=== PATIENT | male | born 1945 | race Caucasian/White ===

== ENCOUNTER 2020-05-24 10:06 | Outpatient (REF) | payer MEDICARE, SELFPAY ==
--- NOTE | 2020-05-24 | US_ITS ---
EXAMINATION: US EXTRACRANIAL CAROTID DUPLEX, BILATERAL CLINICAL INFORMATION: Bilateral asymptomatic carotid stenosis. COMPARISON: 05/14/2019 carotid ultrasound. TECHNIQUE: Real-time ultrasound and Doppler techniques (integrating B-mode 2-D vascular images, Doppler spectral analysis and color-flow Doppler imaging) were utilized to interrogate the extracranial carotid arteries, the vertebral arteries and proximal subclavian arteries bilaterally. The degree of stenosis is determined by criteria similar to NASCET. FINDINGS: Mild echogenic atherosclerotic plaque was seen in the right carotid bulb. No significant atherosclerotic plaque was seen in the left carotid bulb. Color Doppler interrogation demonstrated normal arterial waveforms with brisk systolic upstrokes. No tardus parvus waveform was identified. Arterial velocities were as follows in cm/s: RIGHT: Proximal CCA: 107 Distal CCA: 99 Proximal ICA: 56 Mid ICA: 73 Distal ICA: 77 ECA: 105 LEFT: Proximal CCA: 117 Distal CCA: 111 Proximal ICA: 87 Mid ICA: 100 Distal ICA: 87 ECA: 111 The vertebral arteries demonstrated normal arterial waveforms and direction of flow. IMPRESSION: No hemodynamically significant arterial stenosis bilaterally.
== END 2020-05-24 10:07 | disposition home or self-care (01) ==
LOC: HO.US 10:06
PROVIDERS: PCP Family Medicine; Visit Provider Surgery Vascular Surgery
DX: I65.23 Occlusion and stenosis of bilateral carotid arteries (principal)
CPT/HCPCS: 93880

== ENCOUNTER → 2020-07-01 09:20 | Outpatient (BNVA) | payer MEDICARE, SELFPAY | PROVIDERS: PCP Family Medicine; Visit Provider Surgery Vascular Surgery | DX: I65.23 Occlusion and stenosis of bilateral carotid arteries (principal) | CPT/HCPCS: 99212 ==

== ENCOUNTER → 2020-08-03 08:58 | Outpatient (BNVA) | payer MEDICARE, SELFPAY | PROVIDERS: PCP Family Medicine; Visit Provider Internal Medicine | DX: I25.10 Atherosclerotic heart disease of native coronary artery without angina pectoris (principal); E11.9 Type 2 diabetes mellitus without complications; J44.9 Chronic obstructive pulmonary disease, unspecified; I65.23 Occlusion and stenosis of bilateral carotid arteries; I45.2 Bifascicular block; I10 Essential (primary) hypertension; E78.5 Hyperlipidemia, unspecified; G47.33 Obstructive sleep apnea (adult) (pediatric); I73.9 Peripheral vascular disease, unspecified; Z87.891 Personal history of nicotine dependence; Z99.89 Dependence on other enabling machines and devices; Z79.84 Long term (current) use of oral hypoglycemic drugs; Z79.899 Other long term (current) drug therapy | CPT/HCPCS: 93005; 99212 ==

== ENCOUNTER 2020-10-22 09:08 | Emergency (ER) | payer MEDICARE, SELFPAY ==
--- NOTE | ~2020-10-22 | XR_ITS ---
EXAMINATION: XR RIBS, LEFT CLINICAL INFORMATION: Left rib pain COMPARISON: Previous chest x-ray October 2018 TECHNIQUE: 3 views of the left ribs and one view of the chest were obtained. FINDINGS: The cardiac and mediastinal contours are stable. There is scarring or chronic subsegmental atelectasis at the lung bases, left greater than right. The lungs are otherwise clear. There is no pleural effusion or pneumothorax. There are degenerative changes of the thoracic spine. No rib fracture is seen. There are degenerative changes of the left shoulder joint. XR/XR ribs LT min 3V w CXR1V IMPRESSION: Bibasilar scarring or chronic subsegmental atelectasis. No evidence for acute disease in the chest or rib fracture seen.
[2020-10-22 09:14] VITALS: BP 158/60; PULSE 96; RESP 20; TEMP 36.4; O2SAT 96; BMI 34.9
--- NOTE | 2020-10-22 09:30 | ECG_ITS ---
Test Reason : CHEST PAIN Blood Pressure : / mmHG Vent. Rate : 090 BPM Atrial Rate : 090 BPM P-R Int : 152 ms QRS Dur : 146 ms QT Int : 404 ms P-R-T Axes : 034 -67 045 degrees QTc Int : 494 ms Normal sinus rhythm Right bundle branch block Left anterior fascicular block Bifascicular block Abnormal ECG When compared with ECG of 31-OCT-2018 06:19, (RBBB and left anterior fascicular block) is now Present Referred By: Jeannette Stearns Electronically Signed By:DARÍO HANSEN
[2020-10-22 10:02] LABS: MANUAL DIFF FLAG NO
[2020-10-22 10:05] LABS: Basophils Percent Auto 0.3 % (0-2); Eosinophils Absolute Auto 0.1 X10*3/uL (0.0-0.4); Eosinophils Percent Auto 1.2 % (0-4); Hematocrit 44.3 % (42-52); Hemoglobin 14.9 g/dl (14.0-18.0); Imm Gran Abs Auto 0.06 X10*3/uL (0.00-0.03); Imm Gran Pct Auto 0.6 % (0.0-0.4); Lymphocytes Absolute Auto 1.9 X10*3/uL (1.2-4.9); Lymphocytes Percent Auto 20.7 % (20-40); Mean Corpuscular HGB Conc 33.6 g/dl (31.0-36.0); Mean Corpuscular Hemoglobin 29.5 pg (27.0-33.0); Mean Corpuscular Volume 87.7 fL (80-98); Mean Platelet Volume 8.9 fL (9.4-12.4); Monocytes Absolute Auto 0.7 X10*3/uL (0.1-1.2); Neutrophils Absolute Auto 6.6 X10*3/uL (2.0-8.3); Neutrophils Percent Auto 70.2 % (45-73); Platelet Count 274 X10*3/uL (160-400); Red Blood Count 5.05 X10*6/uL (4.60-5.80); Red Cell Distribution Width 14.3 % (11.0-16.0); White Blood Count 9.4 X10*3/uL (4.8-10.8)
[2020-10-22 10:16] LABS: Prothrombin Time 11.4 SEC (10.8-13.0)
[2020-10-22 10:19] LABS: Partial Thromboplastin Time 32.6 SEC (24.1-38.0)
[2020-10-22 10:20] LABS: D Dimer < 200 NG/ML
[2020-10-22 10:30] LABS: Alanine Aminotransferase 22 U/L (0-40); Albumin Level 4.3 g/dL (3.5-5.0); Alkaline Phosphatase 48 U/L (39-117); Anion Gap 15 (12-20); Aspartate Amino Transferase 22 U/L (5-37); Bilirubin Direct 0.2 mg/dL (0.0-0.5); Bilirubin Total 0.5 mg/dL (0.0-1.0); Blood Urea Nitrogen 23 mg/dL (9-16); Calcium 9.5 mg/dL (8.4-10.2); Carbon Dioxide 30 mmol/L (22-29); Chloride 96 mmol/L (96-108); Estimated Glomerular Filt Rate > 60; Glucose Random 204 mg/dL (60-115); Magnesium 2.1 mg/dL (1.6-2.6); Potassium 3.6 mmol/L (3.3-5.1); Sodium 137 mmol/L (135-145)
--- NOTE | 2020-10-22 10:35 | ED.CHESTPAIN ---
HPI - Chest Pain General Chief Complaint: Chest Pain Stated Complaint: CHEST PAIN Time Seen by Provider: 10/22/20 09:19 Source: patient Mode of arrival: ambulatory History of Present Illness HPI narrative: 75-year-old male with a past medical history of CAD, carotid stenosis, COPD, diabetes, hyperlipidemia, hypertension, MISTY on CPAP, presenting to the ED complaining of left-sided chest pain radiating to back x1 week. Admits symptoms started after sneezing episode, symptoms worse with movement, and deep breathing. States feels like a pulled muscle. Denies fever, cough, shortness of breath, nausea/vomiting, abdominal pain, LE edema, recent travel, smoking. Denies trauma falls or injury MD complaint: chest discomfort Related Data Home Medications Medication Instructions Recorded Confirmed flu vacc 2020-21(65yr ml IM 07/01/20 08/03/20 up)-MF59C(PF) 60 mcg(15 mcgx4)/0.5 mL IM syringe metformin 500 mg tablet,extended 500 mg PO BID 07/01/20 08/03/20 release 24 hr tamsulosin 0.4 mg capsule 0.4 mg PO BID 07/01/20 08/03/20 umeclidinium 62.5 mcg/actuation 1 inh PO DAILY 07/01/20 08/03/20 blister powder for inhalation aspirin 81 mg tablet,delayed 81 mg PO DAILY 08/03/20 08/03/20 release chlorthalidone 25 mg tablet 25 mg PO DAILY 08/03/20 08/03/20 Previous Rx's Medication Instructions Recorded amlodipine 10 mg tablet 10 mg PO DAILY #30 tab 06/10/20 epinephrine 0.3 mg/0.3 mL 0.3 mg IM Q20M PRN #2 ea 07/06/20 injection, auto-injector blood sugar diagnostic #50 ea 07/26/20 hydralazine 25 mg tablet 25 mg PO TID #90 tab 08/03/20 desoximetasone 0.25 % topical cream 1 appl TOPICAL BID PRN 30 Days 09/02/20 #100 g fluticasone 500 mcg-salmeterol 50 1 ea PO BID 30 Days #60 ea 09/04/20 mcg/dose blistr powdr for inhalation rosuvastatin 10 mg tablet 10 mg PO BEDTIME 30 Days #30 tab 10/05/20 acetaminophen [Tylenol Extra 500 mg PO Q6H PRN #20 tab 10/22/20 Strength] cyclobenzaprine 5 mg PO Q8H PRN 5 Days #14 tab 10/22/20 lidocaine [Lidoderm] 1 patch TOPICAL DAILY PRN #30 ea 10/22/20 MDD remove after 12 hours Allergies Allergy/AdvReac Type Severity Reaction Status Date / Time SADI Inhibitors Allergy Unknown FACIAL Verified 08/03/20 09:11 [SADI INHIBITORS] SWELLING lisinopril [LISINOPRIL] Allergy Unknown FACIAL Verified 08/03/20 09:11 SWELLING, hives, lip edema oxycodone [From PERCOCET] Allergy Unknown JOINT Verified 08/03/20 09:11 STIFFNESS peanut [PEANUTS] Allergy Unknown SWELLING,TH Verified 08/03/20 09:11 ROAT,HIVES Review of Systems Review of Systems: Constitutional: No Fever, No Chills Cardiovascular: + Chest Pain, No SOB, No Dyspnea on Exertion, No Orthopnea, No Edema, No Palpitations Respiratory: No Cough, No Sputum, No Wheezing Gastrointestinal: No Nausea, No Vomiting, No Diarrhea, No Abdominal pain Genitourinary: No Dysuria, No Urinary Frequency, No Hematuria, No Flank Pain Musculoskeletal: No joint pain, No Myalgias, No Joint Swelling Skin: No Skin Lesions, No rash Yes all other systems are reviewed and are negative [facility] Past Medical History Attestation statement: The following information was validated with the patient. Medical History (Updated 10/22/20 @ 13:58 by MARKELL Head) Atherosclerotic cardiovascular disease Bifascicular block Carotid stenosis COPD (chronic obstructive pulmonary disease) Diabetes Hypercholesteremia Hypertension MISTY on CPAP Surgical History Hx of cataract S/P TURP (status post transurethral resection of prostate) (~2019) Status post carotid surgery Family History Family History Father CVD (cardiovascular disease) Mother No problems noted. Sister Cancer Sister Cancer Social History Social History (Updated 08/03/20 @ 09:12 by FRANCHESCA Hidalgo) Smoking Status: Former smoker Use of substances other than those prescribed or required for medical reasons: No Advance Directives: Yes Advance Directives Information Provided: No Advance Directives on File: No Physical Exam Vital Signs: Vital Signs: Last Vital Signs Temp 97.7 F 10/22/20 13:20 Pulse 98 10/22/20 13:20 Resp 17 10/22/20 13:20 BP 156/76 H 10/22/20 13:20 Pulse Ox 96 10/22/20 13:20 Body Mass Index 34.9 Const: General: cooperative, healthy appearing, comfortable, no acute distress and well developed Orientation/consciousness: patient oriented x3 Limitations: no limitations HENMT: Head: Yes normal to inspection Ears: hearing grossly normal bilaterally General nose exam: Normal external nose present Face and sinus: Yes normal facial exam Eyes: General: appearance normal, both eyes and all related structures EOM: EOMs intact bilaterally Neck: Neck: Yes normal visual inspection Chest: Other: Left anterior lateral upper chest wall/ribs. No vertebral deformity/erythema or crepitus Chest palpation & inspection: normal inspection of the chest, no crepitus and tenderness Resp: Effort & Inspection: normal respiratory effort Auscultation: clear to auscultation bilaterally, no rhonchi and no wheezes Cardio: Rate: regular rate Heart sounds: S1 normal heart sound present and S2 normal heart sound present GI: Inspection: Yes normal to inspection Palpation (GI): Soft to palpation, nontender, no guarding and not rigid : General: Yes no CVA tenderness Back/Spine/Pelvis: Back: no CVA tenderness Skin: Rashes: no rashes Wounds: no wounds Neuro: General: patient oriented x3 Gait exam (Neuro): Normal gait present Extrem: General: Yes normal to inspection, Yes no pedal edema and Yes no calf tenderness Course Course Course Narrative: -D-dimer negative, troponin 6.8 >> will obtain 3 hour repeat. Labs otherwise unremarkable XR ribs LT min 3V w CXR1V IMPRESSION: Bibasilar scarring or chronic subsegmental atelectasis. No evidence for acute disease in the chest or rib fracture seen. -1357--repeat troponin without 50% rise. PR unlikely. Mild symptomatic improvement with Lidoderm patch. Results discussed including worrisome signs and symptoms and strict return precautions. Patient is to follow-up with his PCP and Cardiology MDM - Chest Pain MDM Narrative Medical decision making narrative: 75-year-old male with a past medical history of CAD, carotid stenosis, COPD, diabetes, hyperlipidemia, hypertension, MISTY on CPAP, presenting to the ED complaining of left-sided chest pain radiating to back x1 week. On exam VSS, NAD/well-appearing, nontoxic. Pain reproducible. Concern for MSK pain/ fracture vs PE or pneumonia. Symptoms atypical for ACS Plan: EKG, labs, CXR, re-evaluate Differential Diagnosis Differential diagnosis: Likely fracture of rib, pneumothorax, atypical chest pain, costochondritis and chest pain Medical Records Data Attestation: I reviewed the patient's medical records. Lab Data Attestation: I reviewed the patient's lab results. Result diagrams: 10/22/20 09:44 10/22/20 09:44 Labs: Lab Results 10/22/20 10/22/20 10/22/20 Range/Units 09:44 09:44 09:44 WBC 9.4 (4.8-10.8) X10*3/uL RBC 5.05 (4.60-5.80) X10*6/uL Hgb 14.9 (14.0-18.0) g/dl Hct 44.3 (42-52) % MCV 87.7 (80-98) fL MCH 29.5 (27.0-33.0) pg MCHC 33.6 (31.0-36.0) g/dl RDW 14.3 (11.0-16.0) % Plt Count 274 (160-400) X10*3/uL MPV 8.9 L (9.4-12.4) fL Immature Gran % (Auto) 0.6 H (0.0-0.4) % Neut % (Auto) 70.2 (45-73) % Lymph % (Auto) 20.7 (20-40) % Pacific % (Auto) 7.0 (2-11) % Eos % (Auto) 1.2 (0-4) % Baso % (Auto) 0.3 (0-2) % Lymph # (Auto) 1.9 (1.2-4.9) X10*3/uL Pacific # (Auto) 0.7 (0.1-1.2) X10*3/uL Eos # (Auto) 0.1 (0.0-0.4) X10*3/uL Baso # (Auto) 0.0 (0.0-0.2) X10*3/uL Abs Immat Gran (auto) 0.06 H (0.00-0.03) X10*3/uL Absolute Neuts (auto) 6.6 (2.0-8.3) X10*3/uL Absolute Nucleated RBC 0.000 (0.0-0.012) X10*3/uL Nucleated RBC % (auto) 0.0 (0.0-0.2) /100WBC PT 11.4 (10.8-13.0) SEC INR 1.0 (0.9-1.1) APTT 32.6 (24.1-38.0) SEC D-Dimer < 200 NG/ML Sodium 137 (135-145) mmol/L Potassium 3.6 (3.3-5.1) mmol/L Chloride 96 (96-108) mmol/L Carbon Dioxide 30 H (22-29) mmol/L Anion Gap 15 (12-20) BUN 23 H (9-16) mg/dL Creatinine 0.96 (0.5-1.4) mg/dL Estim Creat Clear Calc 79.0 Estimated GFR > 60 Random Glucose 204 H (60-115) mg/dL Calcium 9.5 (8.4-10.2) mg/dL Magnesium 2.1 (1.6-2.6) mg/dL Total Bilirubin 0.5 (0.0-1.0) mg/dL Direct Bilirubin 0.2 (0.0-0.5) mg/dL AST 22 (5-37) U/L ALT 22 (0-40) U/L Alkaline Phosphatase 48 (39-117) U/L Troponin I High Sens (<3.5-35.0) ng/L B-Natriuretic Peptide (<100) pg/mL Total Protein 7.0 (6.5-8.0) g/dL Albumin 4.3 (3.5-5.0) g/dL Lipase 33 (8-78) U/L 10/22/20 10/22/20 10/22/20 Range/Units 09:44 09:44 12:37 WBC (4.8-10.8) X10*3/uL RBC (4.60-5.80) X10*6/uL Hgb (14.0-18.0) g/dl Hct (42-52) % MCV (80-98) fL MCH (27.0-33.0) pg MCHC (31.0-36.0) g/dl RDW (11.0-16.0) % Plt Count (160-400) X10*3/uL MPV (9.4-12.4) fL Immature Gran % (Auto) (0.0-0.4) % Neut % (Auto) (45-73) % Lymph % (Auto) (20-40) % Pacific % (Auto) (2-11) % Eos % (Auto) (0-4) % Baso % (Auto) (0-2) % Lymph # (Auto) (1.2-4.9) X10*3/uL Pacific # (Auto) (0.1-1.2) X10*3/uL Eos # (Auto) (0.0-0.4) X10*3/uL Baso # (Auto) (0.0-0.2) X10*3/uL Abs Immat Gran (auto) (0.00-0.03) X10*3/uL Absolute Neuts (auto) (2.0-8.3) X10*3/uL Absolute Nucleated RBC (0.0-0.012) X10*3/uL Nucleated RBC % (auto) (0.0-0.2) /100WBC PT (10.8-13.0) SEC INR (0.9-1.1) APTT (24.1-38.0) SEC D-Dimer NG/ML Sodium (135-145) mmol/L Potassium (3.3-5.1) mmol/L Chloride (96-108) mmol/L Carbon Dioxide (22-29) mmol/L Anion Gap (12-20) BUN (9-16) mg/dL Creatinine (0.5-1.4) mg/dL Estim Creat Clear Calc Estimated GFR Random Glucose (60-115) mg/dL Calcium (8.4-10.2) mg/dL Magnesium (1.6-2.6) mg/dL Total Bilirubin (0.0-1.0) mg/dL Direct Bilirubin (0.0-0.5) mg/dL AST (5-37) U/L ALT (0-40) U/L Alkaline Phosphatase (39-117) U/L Troponin I High Sens 6.8 5.8 (<3.5-35.0) ng/L B-Natriuretic Peptide 14 (<100) pg/mL Total Protein (6.5-8.0) g/dL Albumin (3.5-5.0) g/dL Lipase (8-78) U/L ECG Data ECG #1: Attestation: I personally reviewed and interpreted this ECG as follows: ECG interpretation date: 10/22/20 ECG interpretation time: 09:12 Prior ECG tracings: available for review Interpretation: EKG normal sinus rhythm with a rate of 90. QTC 494. Right bundle georges block. Changes from prior Discharge Plan Discharge Clinical Impression: Atypical chest pain Patient Disposition: Home, Self-Care Instructions: Chest Pain (ED), Costochondritis (ED) Additional Instructions: Your blood work and chest x-ray were reassuring today in the ED. your pain is likely musculoskeletal/costochondritis Lidoderm patches or numbing patches, apply to painful area. Flexeril as a muscle relaxer, take at night as it makes you drowsy, do not drive, drink alcohol, or operate machinery while taking it You may ice painful area or apply heat packs Follow-up with her primary care doctor as well as Cardiology. If pain persists or worsens, becomes more constant, have shortness of breath, or fever return to the ED Prescriptions: New acetaminophen [Tylenol Extra Strength] 500 mg tablet 500 mg PO Q6H PRN (Reason: pain or fever) Qty: 20 RF: 0 lidocaine [Lidoderm] 5 % adhesive patch,medicated 1 patch topical DAILY MDD remove after 12 hours PRN (Reason: pain) Qty: 30 RF: 0 cyclobenzaprine 5 mg tablet 5 mg PO Q8H PRN (Reason: pain (scale score 7-10)) 5 Days Qty: 14 RF: 0 No Action amlodipine 10 mg tablet 10 mg PO DAILY Qty: 30 RF: 6 epinephrine 0.3 mg/0.3 mL auto-injector 0.3 mg IM Q20M PRN (Reason: anaphylaxis) Qty: 2 RF: 0 (DME) blood sugar diagnostic Strip See Rx Instructions .ROUTE .MEDSUPPLY Qty: 50 RF: 2 desoximetasone 0.25 % cream 1 appl topical BID PRN (Reason: skin irritation) 30 Days Qty: 100 RF: 3 fluticasone propion-salmeterol 500-50 mcg/dose blister with device 1 ea PO BID 30 Days Qty: 60 RF: 6 rosuvastatin 10 mg tablet 10 mg PO BEDTIME 30 Days Qty: 30 RF: 3 Incruse Ellipta 62.5 mcg/actuation blister with device 1 inh PO DAILY RF: 0 tamsulosin 0.4 mg capsule 0.4 mg PO BID RF: 0 Fluad Quad 2019-(65y up)(PF) 60 mcg (15 mcg x 4)/0.5 mL syringe IM RF: 0 metformin 500 mg tablet extended release 24 hr 500 mg PO BID RF: 0 aspirin 81 mg tablet,delayed release (DR/EC) 81 mg PO DAILY RF: 0 chlorthalidone 25 mg tablet 25 mg PO DAILY RF: 0 hydralazine 25 mg tablet 25 mg PO TID Qty: 90 RF: 5 Referrals: Denis Diehl MD [Primary Care Provider] - 2 days Hernandez Jennings MD [Physician] - 5 days
[2020-10-22 10:36] LABS: B Type Natriuretic Peptide 14 pg/mL (<100); Troponin-I High Sensitivity 6.8 ng/L (<3.5-35.0)
[2020-10-22 11:19] LABS: Lipase 33 U/L (8-78)
[2020-10-22] MEDS: Lidocaine 4 % Patch ADH..PATCH 1 PATCH TRANSDERMA (11:26)
[2020-10-22 11:42] VITALS: BP 150/71; PULSE 82; RESP 18; TEMP 36.6; O2SAT 94
--- NOTE | 2020-10-22 11:43 | PC.NURSE ---
patient a&ox3, c/o left chest/rib pain- lido patch applied per order, pt states pain is only with movement and when he coughs, pt awaiting repeat lab draw, will continue to monitor.
--- NOTE | 2020-10-22 11:45 | PC.NURSE ---
hall monitor nsr 80s
[2020-10-22 13:20] VITALS: BP 156/76; PULSE 98; RESP 17; TEMP 36.5; O2SAT 96
[2020-10-22 13:39] LABS: Troponin-I High Sensitivity 5.8 ng/L (<3.5-35.0)
== END 2020-10-22 14:27 | disposition home or self-care (01) ==
PROVIDERS: Physician Assistant; Emergency Provider Emergency Medicine; PCP Family Medicine
DX: R07.89 Other chest pain (principal); E11.9 Type 2 diabetes mellitus without complications; I10 Essential (primary) hypertension; E78.5 Hyperlipidemia, unspecified; Z79.4 Long term (current) use of insulin; Z79.82 Long term (current) use of aspirin
CPT/HCPCS: 36415; 71101; 80048; 80076; 83690; 83735; 83880; 84484; 85025; 85379; 85610; 85730; 93005; 99283; 99285

== ENCOUNTER → 2021-02-07 08:58 | Outpatient (BNVA) | payer MEDICARE, SELFPAY | PROVIDERS: PCP Family Medicine; Referring Provider Family Medicine; Visit Provider Internal Medicine | DX: I25.10 Atherosclerotic heart disease of native coronary artery without angina pectoris (principal); I45.2 Bifascicular block; I10 Essential (primary) hypertension; I65.23 Occlusion and stenosis of bilateral carotid arteries; H44.9 Unspecified disorder of globe; G47.33 Obstructive sleep apnea (adult) (pediatric); E11.8 Type 2 diabetes mellitus with unspecified complications; Z99.89 Dependence on other enabling machines and devices; Z79.899 Other long term (current) drug therapy | CPT/HCPCS: 93005; 99212 ==

== ENCOUNTER 2021-02-08 06:13 | Outpatient (REF) | payer MEDICARE, SELFPAY ==
--- NOTE | ~2021-02-08 | XR_ITS ---
EXAMINATION: XR CHEST CLINICAL INFORMATION: COPD COMPARISON: Previous chest x-rays most recent October 2020 TECHNIQUE: 2 views of the chest were obtained. FINDINGS: The cardiac and mediastinal contours are stable. The thoracic aorta is tortuous and calcified but appears unchanged. The lungs are clear. There is no pleural effusion or pneumothorax. There are degenerative changes of the spine. XR/XR chest 2V IMPRESSION: No evidence for acute disease in the chest.
== END 2021-02-08 06:14 | disposition home or self-care (01) ==
LOC: HO.XRAY 06:13
PROVIDERS: PCP Family Medicine; Visit Provider Internal Medicine
DX: J44.9 Chronic obstructive pulmonary disease, unspecified (principal); R06.02 Shortness of breath
CPT/HCPCS: 71046

== ENCOUNTER → 2021-02-10 10:42 | Outpatient (REF) | payer MEDICARE, SELFPAY ==
--- NOTE | 2021-02-10 10:46 | CA_ITS ---
Transthoracic Echocardiogram Patient (Last, First, Middle): Taqueria Adkins, Gender: Male Date of : 1945 Age: 75 Procedure Date: 02/10/2021 Procedure Type: Transthoracic Echocardiogram Location: OP Height: 172.72 cm Weight: 104.33 kg BSA: 2.17 m2 Heart Rate: bpm BP: 120 / 74 mmHg Director Security Management: HAM Whitney MD: Hernandez Jennings MD Instructor Flying: Lukas Nicholson MD Symptoms: I25.10 - Atherosclerotic heart disease of jena coronary... Study Quality: Technically Difficult ECG Rhythm: Tachycardia Conclusions: - 1. Normal LV systolic function with impaired relaxation filling pattern 2. Mild calcification aortic valve and mild mitral and calcification with normal cardiac valvular Doppler 3. Normal RV systolic pressure 4. No pericardial effusion Findings Left Ventricle Normal left ventricular size, thickness, and systolic function. The visually estimated ejection fraction is between 60-65%. Spectral Doppler is indicative of an impaired relaxation filling pattern. E/E prime ratio is between 8 and 15 consistent with indeterminate filling pressures. Right Ventricle Normal right ventricular cavity size and systolic function. Atria The left atrium is likely dilated. Interatrial shunt cannot be excluded. The right atrium is normal in size. Aortic Valve There is mild calcification of the aortic valve. There is no aortic valve stenosis. There is no aortic valve regurgitation. Mitral Valve There is mild anterior and posterior mitral leaflet thickening. There is mild mitral annular calcification. There is trace mitral valve regurgitation. There is no mitral valve stenosis. Pulmonic Valve The pulmonic valve was not well visualized. Tricuspid Valve Likely normal tricuspid valve structure and function. There is mild tricuspid valve regurgitation. The right ventricular systolic pressure is normal. The right ventricular systolic pressure is 21 mmHg. There is no evidence of pulmonary hypertension. Great Vessels The aorta was not well visualized. The pulmonary artery was not well visualized. Venous The inferior vena cava is normal in size and collapses greater than 50% with inspiration. Pericardium/Pleural There is no evidence of pericardial effusion. Prior Study Comparison No significant change compared to prior study dated: 02/11/2020. Measurements M-Mode Liner Measurements Normals - Women/Men AOV Cusps: 1.70 1.5-2.6 cm/m2 2D Linear Measurements IVSd: 1.05 0.6-0.9/0.6-1.0 cm LVIDd: 4.65 3.9-5.3/4.2-5.9 cm LVIDd Index: 2.14 2.4-3.2/2.2-3.1 cm/m2 LVIDs: 2.49 2.0-3.6 cm LVPWd: 1.16 0.7-1.1 cm Ao Root: 3.10 2.1-3.5 cm LA Diam: 3.80 2.7-3.8/3.0-4.0 cm LAIDs Index: 1.75 1.5-2.3 cm/m2 LV Mass: 231.18 67-162/88-224 g LV Mass Index: 106.53 43-95/49-115 g/m2 LVOT Diam: 1.70 3.0+(-)1.3 cm 2D Systolic Function EF 4C: 64.90 >55% EF 2C: 60.90 >55% EF BiP: 63.40 >55% Mitral Valve MV Pk E: 0.74 MV PK A: 1.14 MV Decel Time: 224.00 E/A: 0.60 E'Lateral: 7.40 E'Medial: 7.29 E/E' Med: 10.20 E/E' Lat: 10.00 PHT: 66.00 MVA PHT: 3.33 Decel Coal: 3.31 Aortic Valve AoV Pk [place]: 1.64 AoV Mn [place]: 1.12 AoV VTI: 0.30 AoV Pk Grad: 11.00 Aov Mn Grad: 6.00 JUMANA Cont.VTI: 1.53 LVOT LVOT Pk [place]: 1.00 LVOT Mn [place]: 0.71 LVOT VTI: 0.20 LVOT Pk Grad: 4.00 LVOT Mn Grad: 2.00 LVOT Diam: 1.70 LVOT Area: 2.27 Diastolic Function MV Pk E: 0.74 MV Pk A: 1.14 E/A: 0.60 E'Medial: 7.29 E/E' Med: 10.20 E' Laterial: 7.40 E/E' Lat: 10.00 Tricuspid Valve TR Pk [place]: 2.10 TR Pk Grad: 18.00 RA Press: 3.00 RVSP: 21.00 Great Vessels Aorta Ao Root-2D: 3.10 2.0-3.7 cm Ao Asc: 2.70 2.1-3.4 cm Pulmonary Valve PV Pk [place]: 1.49 Peak PV Grad: 9.00 Updated in Other Vendor System with Status of Final Lukas Nicholson MD electronically signed on 02/10/2021 3:37:15 PM with status of Final
== END ==
LOC: HO.CARD 10:42
PROVIDERS: PCP Family Medicine; Visit Provider Internal Medicine
DX: I25.10 Atherosclerotic heart disease of native coronary artery without angina pectoris (principal); R06.02 Shortness of breath
CPT/HCPCS: 93306

== ENCOUNTER → 2021-07-27 12:51 | Outpatient (BNVA) | payer MEDICARE, SELFPAY | PROVIDERS: PCP Family Medicine; Referring Provider Family Medicine; Visit Provider Internal Medicine | DX: I25.10 Atherosclerotic heart disease of native coronary artery without angina pectoris (principal); I45.2 Bifascicular block; I10 Essential (primary) hypertension; E11.8 Type 2 diabetes mellitus with unspecified complications; I65.23 Occlusion and stenosis of bilateral carotid arteries; G47.33 Obstructive sleep apnea (adult) (pediatric); Z99.89 Dependence on other enabling machines and devices | CPT/HCPCS: 93005; 99212 ==

== ENCOUNTER 2021-07-28 06:08 | Outpatient (REF) | payer MEDICARE, SELFPAY ==
[2021-07-28 06:26] LABS: MANUAL DIFF FLAG NO
[2021-07-28 07:15] LABS: Appearance Urine CLEAR; Color Urine YELLOW; Glucose Urine UA NEG (NEG); Leukocyte Esterase Urine NEG (NEG); Nitrite Urine NEG (NEG); Specific Gravity - Urine 1.025 (1.005-1.025); Urine Blood NEG (NEG); Urine Ketones NEG (NEG); Urine Protein TRACE MG/DL (NEG-TRACE)
[2021-07-28 07:16] LABS: Basophils Absolute Auto 0.1 X10*3/uL (0.0-0.2); Basophils Percent Auto 0.6 % (0-2); Eosinophils Absolute Auto 0.4 X10*3/uL (0.0-0.4); Eosinophils Percent Auto 3.4 % (0-4); Hematocrit 43.2 % (42.0-52.0); Hemoglobin 14.5 g/dl (14.0-18.0); Imm Gran Abs Auto 0.11 X10*3/uL (0.00-0.03); Lymphocytes Absolute Auto 2.9 X10*3/uL (1.2-4.9); Lymphocytes Percent Auto 25.9 % (20-40); Mean Corpuscular HGB Conc 33.6 g/dl (31.0-36.0); Mean Corpuscular Hemoglobin 29.6 pg (27.0-33.0); Mean Corpuscular Volume 88.2 fL (80.0-98.0); Mean Platelet Volume 8.9 fL (9.4-12.4); Monocytes Absolute Auto 0.9 X10*3/uL (0.1-1.2); Monocytes Percent Auto 7.6 % (2-11); Neutrophils Percent Auto 61.5 % (45-73); Platelet Count 287 X10*3/uL (160-400); Red Cell Distribution Width 13.8 % (11.0-16.0); White Blood Count 11.4 X10*3/uL (4.8-10.8)
[2021-07-28 07:30] LABS: Alanine Aminotransferase 22 U/L (0-40); Albumin Level 4.2 g/dL (3.5-5.0); Alkaline Phosphatase 50 U/L (39-117); Anion Gap 14 (12-20); Aspartate Amino Transferase 20 U/L (5-37); Bilirubin Total 0.7 mg/dL (0.0-1.0); Blood Urea Nitrogen 20 mg/dL (9-16); Carbon Dioxide 33 mmol/L (22-29); Chloride 95 mmol/L (96-108); Cholesterol 142 mg/dL; Estimated Glomerular Filt Rate > 60; Glucose Fasting 186 mg/dL (60-99); HDL Cholesterol 43 mg/dL; LDL Cholesterol Calculated 61 mg/dl; Potassium 3.8 mmol/L (3.3-5.1); Sodium 138 mmol/L (135-145); Total Protein 6.8 g/dL (6.5-8.0); Triglycerides 190 mg/dL
[2021-07-28 07:50] LABS: TSH reflex Free T4 3.95 uIU/mL (0.32-4.0)
== END 2021-07-28 06:09 | disposition home or self-care (01) ==
LOC: HO.LAB 06:08
PROVIDERS: PCP Family Medicine; Visit Provider Family Medicine
DX: Z00.00 Encounter for general adult medical examination without abnormal findings (principal); Z13.220 Encounter for screening for lipoid disorders; Z13.29 Encounter for screening for other suspected endocrine disorder
CPT/HCPCS: 36415; 80053; 80061; 81003; 84443; 85025

== ENCOUNTER 2021-08-04 12:26 | Outpatient (REF) | payer MEDICARE, SELFPAY ==
--- NOTE | ~2021-08-04 | US_ITS ---
EXAMINATION: US EXTRACRANIAL CAROTID DUPLEX, BILATERAL CLINICAL INFORMATION: Carotid stenosis. COMPARISON: 05/24/2020 TECHNIQUE: Real-time ultrasound and Doppler techniques (integrating B-mode 2-D vascular images, Doppler spectral analysis and color-flow Doppler imaging) were utilized to interrogate the extracranial carotid arteries, the vertebral arteries and proximal subclavian arteries bilaterally. The degree of stenosis is determined by criteria similar to NASCET. FINDINGS: Right Side: 1. There is mild atherosclerotic plaque seen in the bifurcation/proximal ICA region. 2. The common carotid artery PSV proximally is 112 cm/s and distally 77 cm/s. 3. The proximal internal carotid artery velocities are 66 cm/s systolic and 14 cm/s diastolic. 4. The proximal external carotid artery PSV is 109 cm/s. 5. The vertebral artery could not be localized. 6. The subclavian artery waveforms are normal. Left Side: 1. There is mild atherosclerotic plaque seen in the bifurcation/proximal ICA region. 2. The common carotid artery PSV proximally is 110 cm/s and distally 102 cm/s. 3. The proximal internal carotid artery velocities are 64 cm/s systolic and 15 cm/s diastolic. 4. The proximal external carotid artery PSV is 112 cm/s. 5. The vertebral artery could not be localized. 6. The subclavian artery waveforms are normal. US/US carotid duplex BI IMPRESSION: 1. RIGHT: Minimal, non-hemodynamically significant stenosis of the proximal right internal carotid artery corresponding to a 0-49% stenosis by velocity criteria. 2. LEFT: Minimal, non-hemodynamically significant stenosis of the proximal left internal carotid artery corresponding to a 0-49% stenosis by velocity criteria. 3. There is no change in the category severity of disease when compared to the previous study dated 05/24/2020. 4. Neither vertebral artery could be visualized. This is likely technical.
== END 2021-08-04 12:27 | disposition home or self-care (01) ==
LOC: HO.US 12:26
PROVIDERS: PCP Family Medicine; Visit Provider Surgery Vascular Surgery
DX: I65.23 Occlusion and stenosis of bilateral carotid arteries (principal)
CPT/HCPCS: 93880

== ENCOUNTER 2021-08-09 12:08 | Outpatient (REF) | payer MEDICARE, SELFPAY ==
[2021-08-09 14:27] LABS: Estimated Average Glucose 171 mg/dL; Hemoglobin A1c % 7.6 %
[2021-08-09 15:45] LABS: Prostate Specific Antigen Scr 14.79 ng/mL (<0.05-4.0)
== END 2021-08-09 12:09 | disposition home or self-care (01) ==
LOC: HO.WFDLDS 12:08
PROVIDERS: Visit Provider Family Medicine
DX: Z12.5 Encounter for screening for malignant neoplasm of prostate (principal); R73.01 Impaired fasting glucose
CPT/HCPCS: 36415; 83036; 84153

== ENCOUNTER → 2021-08-15 10:40 | Outpatient (BNVA) | payer MEDICARE, SELFPAY | PROVIDERS: PCP Family Medicine; Visit Provider Surgery Vascular Surgery | DX: I65.23 Occlusion and stenosis of bilateral carotid arteries (principal) | CPT/HCPCS: 99212 ==

== ENCOUNTER 2021-11-29 06:06 | Outpatient (REF) | payer MEDICARE, SELFPAY ==
[2021-11-29 07:18] LABS: Estimated Average Glucose 140 mg/dL; Hemoglobin A1c % 6.5 %
== END 2021-11-29 06:07 | disposition home or self-care (01) ==
LOC: HO.LAB 06:06
PROVIDERS: PCP Family Medicine; Visit Provider Family Medicine
DX: R73.01 Impaired fasting glucose (principal)
CPT/HCPCS: 36415; 83036

== ENCOUNTER → 2021-12-06 13:47 | Outpatient (BNVA) | payer MEDICARE, SELFPAY | PROVIDERS: PCP Family Medicine; Visit Provider Surgery Vascular Surgery | DX: I73.9 Peripheral vascular disease, unspecified (principal) | CPT/HCPCS: 99212 ==

== ENCOUNTER 2021-12-26 13:49 | Outpatient (REF) | payer MEDICARE, SELFPAY ==
--- NOTE | ~2021-12-26 | US_ITS ---
EXAMINATION: COLOR-FLOW DUPLEX IMAGING OF THE BILATERAL LOWER EXTREMITY ARTERIAL SYSTEM. VELOCITY MEASUREMENTS THROUGHOUT THE FEMORAL ARTERIES WITH ANKLE-BRACHIAL PERIPHERAL ARTERIAL TESTING. Interventional Radiologist: Elliott Mas M.D., F.S.I.R., F.A.C.R. CLINICAL INFORMATION: This is a 76-year-old male with bilateral peripheral arterial disease. Claudication. Former smoker. Hypertension. Hyperlipidemia. Diabetes. RIGHT FEMORAL RUNOFF VELOCITIES: The right common femoral artery measures 118 cm/s and triphasic. The right profunda femoral artery is 69 cm/s and is biphasic. Right proximal superficial femoral artery measures 165 cm/s and triphasic. Mid superficial femoral artery is 114 cm/s and triphasic. Distal right superficial femoral artery measures 196 cm/s and is triphasic. Right popliteal velocity measures 77 cm/s and is triphasic. The posterior tibial artery velocity measures 81 cm/s and was triphasic. The right ankle-brachial index is 0.94. The right ankle pressure in the posterior tibial artery was 139 mmHg. LEFT FEMORAL RUNOFF VELOCITIES: The left common femoral artery measures 116 cm/s and triphasic. The left profunda femoral artery is 60 cm/s and is biphasic. Left proximal superficial femoral artery measures 1 date cm/s and triphasic. Mid superficial femoral artery is 137 cm/s and triphasic. Distal left superficial femoral artery measures 153 cm/s and is triphasic. Left popliteal velocity measures 83 cm/s and is triphasic. The posterior tibial artery velocity measures 107 cm/s and was triphasic. The left ankle-brachial index is 0.91. US/US arterial duplex LE BI IMPRESSION: 1. An arrhythmia was noted during the duplex portion of the examination. 2. There is scattered atherosclerotic plaque present but without evidence of hemodynamically significant stenosis bilaterally. I will note that there is mild elevation seen in the distal right superficial femoral artery which is closest to significant the waveforms are triphasic and the velocities are still below the threshold.
== END 2021-12-26 13:50 | disposition home or self-care (01) ==
LOC: HO.US 13:49
PROVIDERS: Visit Provider Surgery Vascular Surgery
DX: I73.9 Peripheral vascular disease, unspecified (principal)
CPT/HCPCS: 93925

== ENCOUNTER → 2022-01-12 12:50 | Outpatient (BNVA) | payer MEDICARE, SELFPAY | PROVIDERS: PCP Family Medicine; Visit Provider Surgery Vascular Surgery | DX: I73.9 Peripheral vascular disease, unspecified (principal); I65.23 Occlusion and stenosis of bilateral carotid arteries | CPT/HCPCS: 99212 ==

== ENCOUNTER → 2022-01-30 12:31 | Outpatient (BNVA) | payer MEDICARE, SELFPAY | PROVIDERS: PCP Family Medicine; Referring Provider Family Medicine; Visit Provider Internal Medicine | DX: I25.10 Atherosclerotic heart disease of native coronary artery without angina pectoris (principal); I45.2 Bifascicular block; I10 Essential (primary) hypertension; E11.8 Type 2 diabetes mellitus with unspecified complications; I65.23 Occlusion and stenosis of bilateral carotid arteries; G47.33 Obstructive sleep apnea (adult) (pediatric); Z79.899 Other long term (current) drug therapy; Z99.89 Dependence on other enabling machines and devices | CPT/HCPCS: 99212 ==

== ENCOUNTER → 2022-02-21 10:54 | Outpatient (REF) | payer MEDICARE, SELFPAY ==
--- NOTE | 2022-02-21 10:59 | HM_ITS ---
Conclusion: 1. Patient was monitored for total period of 3 days and 1 hour 2. Baseline was normal sinus rhythm with average heart rate of 90 beats per minute 3. No significant pauses or bradycardia noted 4. Very frequent runs of supraventricular arrhythmias, longest lasting 11 beats, more suggestive of SVT 5. Total of 39,620 PACs accounting for 10.27% of total beats accounting for frequent PACs 6. No patient reported events MTDD
== END ==
LOC: HO.CARD 10:54
PROVIDERS: Visit Provider Internal Medicine
DX: I49.8 Other specified cardiac arrhythmias (principal); I49.1 Atrial premature depolarization
CPT/HCPCS: 93242

== ENCOUNTER → 2022-03-02 12:54 | Outpatient (BNVA) | payer MEDICARE, SELFPAY | PROVIDERS: PCP Family Medicine; Visit Provider Nurse Practitioner Family | DX: G47.30 Sleep apnea, unspecified (principal); R53.83 Other fatigue; R40.0 Somnolence | CPT/HCPCS: 99202 ==

== ENCOUNTER → 2022-04-10 11:56 | Outpatient (REF) | payer MEDICARE, SELFPAY | LOC: HO.SL 11:56 | PROVIDERS: PCP Family Medicine; Visit Provider Nurse Practitioner Family | DX: G47.33 Obstructive sleep apnea (adult) (pediatric) (principal); R40.0 Somnolence | CPT/HCPCS: 95806 ==

== ENCOUNTER → 2022-06-22 22:05 | Outpatient (REF) | payer MEDICARE, SELFPAY | LOC: HO.SL 22:05 | PROVIDERS: PCP Family Medicine; Visit Provider Nurse Practitioner Family | DX: G47.33 Obstructive sleep apnea (adult) (pediatric) (principal) | CPT/HCPCS: 95811 ==

== ENCOUNTER → 2022-08-01 12:04 | Outpatient (BNVA) | payer MEDICARE, SELFPAY | PROVIDERS: PCP Family Medicine; Referring Provider Family Medicine; Visit Provider Internal Medicine | DX: R06.02 Shortness of breath (principal); I49.1 Atrial premature depolarization; I45.2 Bifascicular block; I25.10 Atherosclerotic heart disease of native coronary artery without angina pectoris; I65.23 Occlusion and stenosis of bilateral carotid arteries; I10 Essential (primary) hypertension; J44.9 Chronic obstructive pulmonary disease, unspecified; I73.9 Peripheral vascular disease, unspecified; E11.9 Type 2 diabetes mellitus without complications; G47.33 Obstructive sleep apnea (adult) (pediatric); Z87.891 Personal history of nicotine dependence; Z99.89 Dependence on other enabling machines and devices | CPT/HCPCS: 93005; 99212 ==

== ENCOUNTER 2022-08-08 06:01 | Outpatient (REF) | payer MEDICARE, SELFPAY ==
[2022-08-08 07:28] LABS: Basophils Absolute Auto 0.1 X10*3/uL (0.0-0.2); Basophils Percent Auto 0.7 % (0-2); Eosinophils Absolute Auto 0.3 X10*3/uL (0.0-0.4); Hematocrit 43.7 % (42.0-52.0); Hemoglobin 14.9 g/dl (14.0-18.0); Imm Gran Abs Auto 0.08 X10*3/uL (0.00-0.03); Imm Gran Pct Auto 0.7 % (0.0-0.4); Lymphocytes Absolute Auto 2.3 X10*3/uL (1.2-4.9); Lymphocytes Percent Auto 19.7 % (20-40); MANUAL DIFF FLAG SCAN; Mean Corpuscular HGB Conc 34.1 g/dl (31.0-36.0); Mean Corpuscular Hemoglobin 29.5 pg (27.0-33.0); Mean Corpuscular Volume 86.5 fL (80.0-98.0); Mean Platelet Volume 8.9 fL (9.4-12.4); Monocytes Absolute Auto 1.6 X10*3/uL (0.1-1.2); Monocytes Percent Auto 13.6 % (2-11); Neutrophils Absolute Auto 7.1 x10*3/uL (2.0-8.3); Neutrophils Percent Auto 62.3 % (45-73); Platelet Count 309 X10*3/uL (160-400); Red Blood Count 5.05 X10*6/uL (4.60-5.80); Red Cell Distribution Width 14.4 % (11.0-16.0); SCAN SMEAR FLAG 1; White Blood Count 11.4 X10*3/uL (4.8-10.8)
[2022-08-08 07:41] LABS: Appearance Urine Clear; Color Urine Yellow; Glucose Urine UA Negative (Negative); Leukocyte Esterase Urine Negative (Negative); Nitrite Urine Negative (Negative); PH 6.5 (5.0-9.0); Urine Blood Negative (Negative); Urine Ketones Negative (Negative); Urine Protein Trace mg/dL (Neg-Trace)
[2022-08-08 07:52] LABS: Creatinine Urine 183.15 mg/dL; Microalbum/Creatinine Ratio Ur 29.4 ug/mg cr
[2022-08-08 07:57] LABS: Alanine Aminotransferase 20 U/L (0-40); Albumin Level 4.3 g/dL (3.5-5.0); Alkaline Phosphatase 52 U/L (39-117); Anion Gap 13 (12-20); Aspartate Amino Transferase 23 U/L (5-37); Blood Urea Nitrogen 13 mg/dL (9-16); Calcium 9.4 mg/dL (8.4-10.2); Carbon Dioxide 31 mmol/L (22-29); Chloride 95 mmol/L (96-108); Cholesterol 139 mg/dL; Estimated Glomerular Filt Rate > 60; Glucose Fasting 151 mg/dL (60-99); HDL Cholesterol 45 mg/dL; LDL Cholesterol Calculated 59 mg/dl; Potassium 3.8 mmol/L (3.3-5.1); SLIDE REVIEW VERIFIED; Sodium 135 mmol/L (135-145); Total Protein 6.8 g/dL (6.5-8.0); Triglycerides 178 mg/dL
[2022-08-08 08:19] LABS: Prostate Specific Antigen Scr 16.42 ng/mL (<0.05-4.0); TSH reflex Free T4 3.16 uIU/mL (0.32-4.0)
[2022-08-08 11:20] LABS: Bilirubin Total 0.6 mg/dL (0.0-1.0)
== END 2022-08-08 06:02 | disposition home or self-care (01) ==
LOC: HO.LAB 06:01
PROVIDERS: PCP Family Medicine; Visit Provider Family Medicine
DX: Z00.00 Encounter for general adult medical examination without abnormal findings (principal); I10 Essential (primary) hypertension; Z12.5 Encounter for screening for malignant neoplasm of prostate
CPT/HCPCS: 36415; 80053; 80061; 81003; 82043; 84153; 84443; 85025

== ENCOUNTER 2022-08-08 06:15 | Emergency (ER) | payer MEDICARE, SELFPAY ==
--- NOTE | ~2022-08-08 | XR_ITS ---
EXAMINATION: XR CHEST CLINICAL INFORMATION: Dyspnea COMPARISON: 02/08/2021 TECHNIQUE: Frontal view of the chest was obtained. FINDINGS: The lungs are well expanded. Linear opacities at the left base. No pleural effusion or pneumothorax. No edema. The cardiomediastinal silhouette is normal in size, with a calcified aorta. Degenerative changes at both shoulders. XR/XR chest 1V IMPRESSION: Linear left basilar opacities favor atelectasis. No consolidation.
[2022-08-08 06:51] VITALS: BP 131/65; PULSE 95; RESP 16; TEMP 36.6; O2SAT 94; BMI 31.9
--- NOTE | 2022-08-08 08:09 | ECG_ITS ---
Test Reason : sob Blood Pressure : / mmHG Vent. Rate : 089 BPM Atrial Rate : 089 BPM P-R Int : 148 ms QRS Dur : 144 ms QT Int : 404 ms P-R-T Axes : 046 -68 053 degrees QTc Int : 491 ms Sinus rhythm with Premature atrial complexes Right bundle branch block Left anterior fascicular block Bifascicular block Abnormal ECG When compared with ECG of 22-OCT-2020 09:12, Premature atrial complexes are now Present Referred By: Jose Scott Electronically Signed By:Tony Arroyo
--- NOTE | 2022-08-08 08:21 | ED.SOB ---
HPI - SOB/Dyspnea General Chief Complaint: Dyspnea Stated Complaint: sob Time Seen by Provider: 08/08/22 07:47 Source: patient Mode of arrival: ambulatory Limitations: no limitations History of Present Illness HPI Narrative: 76-year-old male who presents emergency department for evaluation of shortness of breath. Patient states he does have a history of COPD and obstructive sleep apnea. He states that over the past 2-3 weeks he has had increased shortness of breath dyspnea on exertion. He states that he can only walk approximately 30 ft before getting very winded. He denies any other associated symptoms. He denied chest pain, orthopnea, PND. He has not noticed any swelling in his lower extremities. He states he has had an unexplained 20 lb weight loss over the past 2-3 weeks. The patient states that he sees Dr. Jennings every 6 months and saw him 1 week prior. He states that he had an EKG which was normal and he was told that his lungs were clear and there was not a clear explanation for his dyspnea on exertion. Patient is concerned that the symptoms are getting worse therefore came to the emergency department for evaluation MD elicited complaint: shortness of breath Pertinent past history: COPD, diabetes and other (Obstructive sleep apnea-on BiPAP) Onset (ago): week(s) (3) Context: occurred during exertion Timing: intermittent Severity: severe Exacerbating factors: exertion Relieving factors: nothing Known history of: COPD Associated symptoms: denies other symptoms Treatment prior to arrival: none Related Data Home Medications Medication Instructions Recorded Confirmed tamsulosin 0.4 mg capsule 0.4 mg PO BID 07/01/20 08/01/22 aspirin 81 mg tablet,delayed 81 mg PO DAILY 08/03/20 08/01/22 release betamethasone dipropionate 0.05 % 1 appl topical BID 08/15/21 08/01/22 topical cream latanoprost 0.005 % eye drops 1 drp ophthalmic (eye) BEDTIME 09/07/21 08/01/22 tafluprost (PF) 0.0015 % eye drops drp ophthalmic (eye) DAILY PRN 12/29/21 08/01/22 in a dropperette (Zioptan (PF)) budesonide 160 mcg-glycopyr 9 2 inh inhalation BID 03/23/22 08/01/22 mcg-formot 4.8 mcg/actuation HFA inhaler ([place] bookphere) Previous Rx's Medication Instructions Recorded epinephrine 0.3 mg/0.3 mL 0.3 mg (0.3 mL) IM Q20M PRN 07/06/20 injection, auto-injector anaphylaxis #2 ea blood sugar diagnostic #50 ea 07/26/20 desoximetasone 0.25 % topical cream 1 appl topical BID PRN skin 09/02/20 irritation 30 days #100 grams fluticasone 500 mcg-salmeterol 50 1 ea PO BID 30 days #60 ea 09/04/20 mcg/dose blistr powdr for inhalation hydralazine 50 mg tablet 50 mg PO TID 90 days #270 tabs 01/30/22 amlodipine 10 mg tablet 10 mg PO DAILY #30 tabs 01/31/22 umeclidinium 62.5 mcg/actuation 1 inh inhalation DAILY 30 days #30 04/04/22 blister powder for inhalation ea (Incruse Ellipta) chlorthalidone 50 mg tablet 50 mg PO QAM 90 days #90 tabs 05/05/22 metformin 1,000 mg tablet 1,000 mg PO BID 90 days #180 tabs 08/01/22 rosuvastatin 10 mg tablet 10 mg PO BEDTIME 30 days #30 tabs 08/01/22 amoxicillin 500 mg capsule 1,000 mg PO BID 7 days #28 caps 08/08/22 doxycycline hyclate 100 mg tablet 100 mg PO Q12H 7 days #14 tabs 08/08/22 Allergies Allergy/AdvReac Type Severity Reaction Status Date / Time SADI Inhibitors Allergy Unknown FACIAL Verified 08/01/22 12:36 [SADI INHIBITORS] SWELLING lisinopril [LISINOPRIL] Allergy Unknown FACIAL Verified 08/01/22 12:36 SWELLING, hives, lip edema oxycodone [From PERCOCET] Allergy Unknown JOINT Verified 08/01/22 12:36 STIFFNESS peanut [PEANUTS] Allergy Unknown SWELLING,TH Verified 08/01/22 12:36 ROAT,HIVES Review of Systems Review of Systems: Yes all other systems are reviewed and are negative [facility] Past Medical History [facility] Narrative: Social history: The patient is a former tobacco user. He states that he quit 30 years prior but did smoke for 20 years. He drinks alcohol 1 to 2 times a week. He denies drug use. 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 Sister Cancer Sister Cancer Social History Social History Housing: House Alcohol intake: current Alcohol intake frequency: holidays/special occasions only Patient Tobacco Use Status: Former Tobacco user Quit Date: 30 years ago e-Cigarette/Vaping Use: Never Used Second Hand Smoke Exposure: No Advance Directives: No Advance Directives Information Provided: Yes service: No Current occupational status: retired Current occupational exposures/hazards: No Cognitive needs: No Hearing needs: No Vision needs: No Physical Exam Vital Signs: Vital Signs: Last Vital Signs Temp 97.8 F 08/08/22 11:38 Pulse 88 08/08/22 11:38 Resp 16 08/08/22 11:38 BP 139/69 08/08/22 11:38 Pulse Ox 92 08/08/22 11:38 O2 Del Method 08/08/22 11:38 BMI result Body Mass Index 31.9 Const: General: cooperative and no acute distress Orientation/consciousness: oriented to person and oriented to place Limitations: no limitations HEENT: Head: Yes normal to inspection, Yes normocephalic and Yes atraumatic Ears: external ears normal General nose exam: Normal external nose present Face and sinus: Yes normal facial exam Mouth: Normal oral and palatal mucosa present Throat: Yes posterior oropharynx normal Eyes: General: appearance normal, both eyes and all related structures Pupils: Equal, round and reactive pupils present Neck: Neck: Yes normal visual inspection, Yes no lymphadenopathy, Yes trachea midline and Yes supple Chest: Chest palpation & inspection: normal inspection of the chest and normal palpation of entire chest wall Resp: Effort & Inspection: normal respiratory effort and able to speak in complete sentences Auscultation: clear to auscultation bilaterally Cardio: Rate: regular rate Rhythm: regular rhythm Heart sounds: S1 normal heart sound present, S2 normal heart sound present and no murmurs GI: Inspection: Yes normal to inspection Palpation (GI): Soft to palpation, nontender and no guarding Auscultation: normal bowel sounds : General: Yes no CVA tenderness Back/Spine/Pelvis: Back: no CVA tenderness Skin: General skin exam: no rashes or lesions noted Neuro: General: oriented to person and oriented to place Cranial nerves: Yes CN's II-XII intact bilaterally and Yes Equal, round and reactive pupils present Cognition (Neuro): normal cognition Motor exam (neuro): 5/5 motor strength present throughout Extrem: General: Yes normal to inspection Psych: Appearance: grossly normal Speech and movement: Normal speech and movement present Affect: normal affect Attitude: cooperative Thought process: Normal thought process present Thought content: Normal thought content present Course Course Course Narrative: 76-year-old male who presents emergency department for evaluation of increasing dyspnea on exertion over 2-3 weeks. The patient states that he canal only walk approximately 30 ft before he gets very winded. He has also had a 20 lb weight loss over the past 3 weeks which is unexplained. The patient did not have any chest pain, cough, fever or chills associated with his dyspnea on exertion. He denied orthopnea, PND or peripheral edema. Patient's vital signs were normal. His physical examination was unremarkable. Patient had a chest x-ray which revealed left linear basilar atelectasis which does not explain symptoms. Patient also had an RSV, flu and COVID test which were negative. The differential includes was not limited to coronary artery disease, COPD exacerbation, electrolyte abnormalities, anemia, pulmonary embolism. I did order laboratory evaluation to include CBC, CMP, troponin, PT/INR, PTT and D-dimer. I will also obtain an EKG. 1241: Laboratory evaluation: CBC was normal, CO2 elevated 32, glucose elevated 141, high sensitivity troponin I was detectable but not elevated at 12. RSV influenza were negative. COVID-19 was positive. D-dimer elevated 329 Radiology evaluation: Chest x-ray: Radiology impression: Left linear basilar opacities favoring atelectasis. No consolidation Twelve EKG: Right bundle branch block with no acute ST segment elevation or depression. Given the patient's elevated D-dimer was concerned that the patient may have pulmonary emboli as the cause of his dyspnea on exertion last 3 weeks. I did discuss this with the patient. The patient states that he has waited too long and can not wait any longer in the emergency department. I did discuss the risks of undiagnosed untreated pulmonary embolism which include disability, decreased quality of life and . Patient understood this decision and The patient is COVID positive, but I do not think that this is the cause of his symptoms. I did discuss this with him. Patient has had for COVID vaccines x4. Given his medical conditions as medications, I do not think that he is a Paxlovid candidate For Paxlovid. He did discuss isolation precautions with the patient. Medical Decision Making Lab Data Result Diagrams: 08/08/22 08:34 08/08/22 08:34 Labs: Lab Results 08/08/22 08/08/22 08/08/22 Range/Units 07:50 08:34 08:34 WBC 9.3 (4.8-10.8) X10*3/uL RBC 5.27 (4.60-5.80) X10*6/uL Hgb 15.4 (14.0-18.0) g/dl Hct 45.6 (42.0-52.0) % MCV 86.5 (80.0-98.0) fL MCH 29.2 (27.0-33.0) pg MCHC 33.8 (31.0-36.0) g/dl RDW 14.3 (11.0-16.0) % Plt Count 262 (160-400) X10*3/uL MPV 8.3 L (9.4-12.4) fL Immature Gran % (Auto) 0.9 H (0.0-0.4) % Neut % (Auto) 70.0 (45-73) % Lymph % (Auto) 12.2 L (20-40) % [place] % (Auto) 14.2 H (2-11) % Eos % (Auto) 1.9 (0-4) % Baso % (Auto) 0.8 (0-2) % Lymph # (Auto) 1.1 L (1.2-4.9) X10*3/uL [place] # (Auto) 1.3 H (0.1-1.2) X10*3/uL Eos # (Auto) 0.2 (0.0-0.4) X10*3/uL Baso # (Auto) 0.1 (0.0-0.2) X10*3/uL Abs Immat Gran (auto) 0.08 H (0.00-0.03) X10*3/uL Absolute Neuts (auto) 6.5 (2.0-8.3) x10*3/uL Absolute Nucleated RBC 0.000 (0.0-0.012) X10*3/uL Nucleated RBC % (auto) 0.0 (0.0-0.2) /100WBC PT 11.6 (10.0-13.1) SEC INR 1.0 (0.9-1.1) APTT 31.7 (26.0-36.4) SEC D-Dimer High Sensitivty 329 NG/ML Sodium (135-145) mmol/L Potassium (3.3-5.1) mmol/L Chloride (96-108) mmol/L Carbon Dioxide (22-29) mmol/L Anion Gap (12-20) BUN (9-16) mg/dL Creatinine (0.5-1.4) mg/dL Estim Creat Clear Calc Estimated GFR Random Glucose (60-115) mg/dL Calcium (8.4-10.2) mg/dL Total Bilirubin (0.0-1.0) mg/dL AST (5-37) U/L ALT (0-40) U/L Alkaline Phosphatase (39-117) U/L Troponin I High Sens (<3.5-35.0) ng/L B-Natriuretic Peptide (<100) pg/mL Total Protein (6.5-8.0) g/dL Albumin (3.5-5.0) g/dL Influenza Type A (PCR) NEGATIVE (Negative) Influenza Type B (PCR) NEGATIVE (Negative) RSV RNA Qual (PCR) NEGATIVE (Negative) SARS-CoV-2 RNA (RT-PCR) POSITIVE A (Negative) 08/08/22 08/08/22 08/08/22 Range/Units 08:34 08:34 08:34 WBC (4.8-10.8) X10*3/uL RBC (4.60-5.80) X10*6/uL Hgb (14.0-18.0) g/dl Hct (42.0-52.0) % MCV (80.0-98.0) fL MCH (27.0-33.0) pg MCHC (31.0-36.0) g/dl RDW (11.0-16.0) % Plt Count (160-400) X10*3/uL MPV (9.4-12.4) fL Immature Gran % (Auto) (0.0-0.4) % Neut % (Auto) (45-73) % Lymph % (Auto) (20-40) % [place] % (Auto) (2-11) % Eos % (Auto) (0-4) % Baso % (Auto) (0-2) % Lymph # (Auto) (1.2-4.9) X10*3/uL [place] # (Auto) (0.1-1.2) X10*3/uL Eos # (Auto) (0.0-0.4) X10*3/uL Baso # (Auto) (0.0-0.2) X10*3/uL Abs Immat Gran (auto) (0.00-0.03) X10*3/uL Absolute Neuts (auto) (2.0-8.3) x10*3/uL Absolute Nucleated RBC (0.0-0.012) X10*3/uL Nucleated RBC % (auto) (0.0-0.2) /100WBC PT (10.0-13.1) SEC INR (0.9-1.1) APTT (26.0-36.4) SEC D-Dimer High Sensitivty NG/ML Sodium 136 (135-145) mmol/L Potassium 3.6 (3.3-5.1) mmol/L Chloride 94 L (96-108) mmol/L Carbon Dioxide 32 H (22-29) mmol/L Anion Gap 14 (12-20) BUN 13 (9-16) mg/dL Creatinine 0.98 (0.5-1.4) mg/dL Estim Creat Clear Calc 72.9 Estimated GFR > 60 Random Glucose 141 H (60-115) mg/dL Calcium 9.8 (8.4-10.2) mg/dL Total Bilirubin 0.6 (0.0-1.0) mg/dL AST 24 (5-37) U/L ALT 23 (0-40) U/L Alkaline Phosphatase 55 (39-117) U/L Troponin I High Sens 12.0 (<3.5-35.0) ng/L B-Natriuretic Peptide 22 (<100) pg/mL Total Protein 7.3 (6.5-8.0) g/dL Albumin 4.7 (3.5-5.0) g/dL Influenza Type A (PCR) (Negative) Influenza Type B (PCR) (Negative) RSV RNA Qual (PCR) (Negative) SARS-CoV-2 RNA (RT-PCR) (Negative) Discharge Plan Discharge Clinical Impression: Acute dyspnea, COVID-19 virus infection Patient Disposition: Left Against Medical Advice Instructions: Dyspnea (ED), COVID-19 (Coronavirus Disease 2019) (ED) Additional Instructions: Your COVID-19 test is positive but this does not explain your shortness of breath over the last 3 weeks Your chest x-ray was unremarkable Your laboratory evaluation was unremarkable except for an elevated D-dimer which could knee that you have a blood clot in your lungs is the cause of your shortness of breath. I wanted to get a CT scan of your lungs to evaluate for a blood clot however you decided against this test at this time. You understand that a blood clot in the lungs could be a series condition and could lead to , you understand this risk in you want to leave against medical advice. I am going to start you on 2 antibiotics to see if this improves her shortness of breath, this will not treat COVID. Take amoxicillin 1000 mg, 1 pill every 12 hours for 7 days Take doxycycline 100 mg, 1 pill every 12 hours for 7 days Follow-up with your doctor in 2 days. Please return to the emergency department if your symptoms get worse or if you develop any symptoms that are concerning to you. Your being discharged against medical advice however if you change your mind or if your symptoms get worse please return to the emergency department and we will re-evaluate you. Follow the CDC guidelines on isolation. You need to isolate for at least 5-7 days and the asymptomatic for at least 24 hours prior to returning to work. Prescriptions: New amoxicillin 500 mg capsule 1,000 mg PO BID 7 Days Qty: 28 0RF doxycycline hyclate 100 mg tablet 100 mg PO Q12H 7 Days Qty: 14 0RF No Action epinephrine 0.3 mg/0.3 mL auto-injector 0.3 mg IM Q20M PRN (Reason: anaphylaxis) Qty: 2 0RF Rx Instructions: for 2 doses (DME) blood sugar diagnostic Strip See Rx Instructions .ROUTE .MEDSUPPLY Qty: 50 2RF Rx Instructions: USE DIRECTED DAILY desoximetasone 0.25 % cream 1 appl topical BID PRN (Reason: skin irritation) 30 Days Qty: 100 3RF fluticasone propion-salmeterol 500-50 mcg/dose blister with device 1 ea PO BID 30 Days Qty: 60 6RF amlodipine 10 mg tablet 10 mg PO DAILY Qty: 30 6RF Incruse Ellipta 62.5 mcg/actuation blister with device 1 inh inhalation DAILY 30 Days Qty: 30 4RF chlorthalidone 50 mg tablet 50 mg PO QAM 90 Days Qty: 90 3RF metformin 1,000 mg tablet 1,000 mg PO BID 90 Days Qty: 180 0RF rosuvastatin 10 mg tablet 10 mg PO BEDTIME 30 Days Qty: 30 0RF latanoprost 0.005 % drops 1 drp ophthalmic (eye) BEDTIME Breztri Aerosphere 160-9-4.8 mcg/actuation HFA aerosol inhaler 2 inh inhalation BID Zioptan (PF) 0.0015 % dropperette ophthalmic (eye) DAILY PRN tamsulosin 0.4 mg capsule 0.4 mg PO BID aspirin 81 mg tablet,delayed release (DR/EC) 81 mg PO DAILY hydralazine 50 mg tablet 50 mg PO TID 90 Days Qty: 270 3RF betamethasone dipropionate 0.05 % cream 1 appl topical BID Stand Alone Forms: Against Medical Advice Interventions: ED Discharge Assessment Last Done: 08/08/22 13:12 Discharge Date/Time: 08/08/22 13:13
[2022-08-08 08:35] VITALS: BP 134/63; PULSE 90; RESP 10; O2SAT 92
[2022-08-08 08:39] LABS: MANUAL DIFF FLAG NO
[2022-08-08 08:43] LABS: Basophils Absolute Auto 0.1 X10*3/uL (0.0-0.2); Basophils Percent Auto 0.8 % (0-2); Eosinophils Absolute Auto 0.2 X10*3/uL (0.0-0.4); Eosinophils Percent Auto 1.9 % (0-4); Hematocrit 45.6 % (42.0-52.0); Hemoglobin 15.4 g/dl (14.0-18.0); Imm Gran Abs Auto 0.08 X10*3/uL (0.00-0.03); Imm Gran Pct Auto 0.9 % (0.0-0.4); Lymphocytes Absolute Auto 1.1 X10*3/uL (1.2-4.9); Lymphocytes Percent Auto 12.2 % (20-40); Mean Corpuscular HGB Conc 33.8 g/dl (31.0-36.0); Mean Corpuscular Hemoglobin 29.2 pg (27.0-33.0); Mean Corpuscular Volume 86.5 fL (80.0-98.0); Mean Platelet Volume 8.3 fL (9.4-12.4); Monocytes Absolute Auto 1.3 X10*3/uL (0.1-1.2); Monocytes Percent Auto 14.2 % (2-11); Neutrophils Absolute Auto 6.5 x10*3/uL (2.0-8.3); Platelet Count 262 X10*3/uL (160-400); Red Blood Count 5.27 X10*6/uL (4.60-5.80); Red Cell Distribution Width 14.3 % (11.0-16.0); White Blood Count 9.3 X10*3/uL (4.8-10.8)
[2022-08-08 08:47] LABS: Prothrombin Time 11.6 SEC (10.0-13.1)
[2022-08-08 08:49] LABS: D Dimer High Sensitivity 329 NG/ML; Partial Thromboplastin Time 31.7 SEC (26.0-36.4)
[2022-08-08 08:58] LABS: Alanine Aminotransferase 23 U/L (0-40); Albumin Level 4.7 g/dL (3.5-5.0); Alkaline Phosphatase 55 U/L (39-117); Anion Gap 14 (12-20); Aspartate Amino Transferase 24 U/L (5-37); Blood Urea Nitrogen 13 mg/dL (9-16); Calcium 9.8 mg/dL (8.4-10.2); Carbon Dioxide 32 mmol/L (22-29); Chloride 94 mmol/L (96-108); Creatinine Clr Calc Pharmacy 72.9; Estimated Glomerular Filt Rate > 60; Glucose Random 141 mg/dL (60-115); Potassium 3.6 mmol/L (3.3-5.1); Sodium 136 mmol/L (135-145); Total Protein 7.3 g/dL (6.5-8.0)
[2022-08-08 09:00] LABS: B Type Natriuretic Peptide 22 pg/mL (<100)
[2022-08-08 09:03] LABS: Influenza A PCR NEGATIVE (Negative); Influenza B PCR NEGATIVE (Negative); Resp Syncy Virus RNA Qual PCR NEGATIVE (Negative); SARS COV2 PCR INHOUSE POSITIVE (Negative)
[2022-08-08 11:31] LABS: Bilirubin Total 0.6 mg/dL (0.0-1.0)
[2022-08-08 11:38] VITALS: BP 139/69; PULSE 88; RESP 16; TEMP 36.6; O2SAT 92
== END 2022-08-08 13:13 | disposition left against medical advice (07) ==
PROVIDERS: Emergency Provider Emergency Medicine Emergency Medical Services
DX: U07.1 COVID-19 (principal); R06.02 Shortness of breath; I45.10 Unspecified right bundle-branch block; E11.9 Type 2 diabetes mellitus without complications; I10 Essential (primary) hypertension; E78.00 Pure hypercholesterolemia, unspecified
CPT/HCPCS: 0241U; 36415; 71045; 80053; 80061; 81003; 82043; 83880; 84153; 84443; 84484; 85025; 85379; 85610; 85730; 93005; 99284

== ENCOUNTER 2022-08-14 06:13 | Emergency (ER) | payer MEDICARE, SELFPAY ==
--- NOTE | 2022-08-14 | ECG_ITS ---
Test Reason : shortness of breath Blood Pressure : / mmHG Vent. Rate : 096 BPM Atrial Rate : 096 BPM P-R Int : 142 ms QRS Dur : 150 ms QT Int : 406 ms P-R-T Axes : 049 -70 056 degrees QTc Int : 512 ms Sinus rhythm with Premature atrial complexes Right bundle branch block Left anterior fascicular block Bifascicular block Abnormal ECG When compared with ECG of 08-AUG-2022 08:20, No significant change was found Referred By: Generic ED Physician Electronically Signed By:Tony Arroyo
[2022-08-14 06:47] VITALS: BP 157/62; PULSE 94; RESP 16; TEMP 36.1; O2SAT 100; BMI 31.9
--- NOTE | 2022-08-14 07:10 | ED.SOB ---
HPI - SOB/Dyspnea General Chief Complaint: Dyspnea Stated Complaint: SOB Time Seen by Provider: 08/14/22 06:55 Source: patient Mode of arrival: ambulatory Limitations: no limitations History of Present Illness HPI Narrative: A 76-year-old male former smoker with known history of asthma/COPD and MISTY presented for evaluation of progressive worsening of shortness of breath for the past 3 weeks, dry cough with occasional clear phlegm, no sick contacts, no recent travel, no lower extremity swelling, patient recently was evaluated in the emergency department for similar symptoms had a slight elevation of D-dimer patient was supposed to get a CTA of the chest but patient declined it, no fever, no chills. Patient tested positive for COVID 5 days ago. No history of using supplemental oxygen. Related Data Home Medications Medication Instructions Recorded Confirmed tamsulosin 0.4 mg capsule 0.4 mg PO BID 07/01/20 08/01/22 aspirin 81 mg tablet,delayed 81 mg PO DAILY 08/03/20 08/01/22 release betamethasone dipropionate 0.05 % 1 appl topical BID 08/15/21 08/01/22 topical cream latanoprost 0.005 % eye drops 1 drp ophthalmic (eye) BEDTIME 09/07/21 08/01/22 tafluprost (PF) 0.0015 % eye drops drp ophthalmic (eye) DAILY PRN 12/29/21 08/01/22 in a dropperette (Zioptan (PF)) budesonide 160 mcg-glycopyr 9 2 inh inhalation BID 03/23/22 08/01/22 mcg-formot 4.8 mcg/actuation HFA inhaler (Breztri Aerosphere) Previous Rx's Medication Instructions Recorded epinephrine 0.3 mg/0.3 mL 0.3 mg (0.3 mL) IM Q20M PRN 07/06/20 injection, auto-injector anaphylaxis #2 ea blood sugar diagnostic #50 ea 07/26/20 desoximetasone 0.25 % topical cream 1 appl topical BID PRN skin 09/02/20 irritation 30 days #100 grams fluticasone 500 mcg-salmeterol 50 1 ea PO BID 30 days #60 ea 09/04/20 mcg/dose blistr powdr for inhalation hydralazine 50 mg tablet 50 mg PO TID 90 days #270 tabs 01/30/22 amlodipine 10 mg tablet 10 mg PO DAILY #30 tabs 01/31/22 umeclidinium 62.5 mcg/actuation 1 inh inhalation DAILY 30 days #30 04/04/22 blister powder for inhalation ea (Incruse Ellipta) chlorthalidone 50 mg tablet 50 mg PO QAM 90 days #90 tabs 05/05/22 metformin 1,000 mg tablet 1,000 mg PO BID 90 days #180 tabs 08/01/22 rosuvastatin 10 mg tablet 10 mg PO BEDTIME 30 days #30 tabs 08/01/22 amoxicillin 500 mg capsule 1,000 mg PO BID 7 days #28 caps 08/08/22 doxycycline hyclate 100 mg tablet 100 mg PO Q12H 7 days #14 tabs 08/08/22 prednisone 20 mg tablet 20 mg PO BID #10 tabs 08/14/22 Allergies Allergy/AdvReac Type Severity Reaction Status Date / Time SADI Inhibitors Allergy Unknown FACIAL Verified 08/01/22 12:36 [SADI INHIBITORS] SWELLING lisinopril [LISINOPRIL] Allergy Unknown FACIAL Verified 08/01/22 12:36 SWELLING, hives, lip edema oxycodone [From PERCOCET] Allergy Unknown JOINT Verified 08/01/22 12:36 STIFFNESS peanut [PEANUTS] Allergy Unknown SWELLING,TH Verified 08/01/22 12:36 ROAT,HIVES Review of Systems Review of Systems: All other systems are reviewed and are negative Constitutional: Reports as per HPI and Reports no additional constitutional complaints Eyes: Reports as per HPI and Reports no additional eye complaints Reports system reviewed and no additional complaints, except as documented Cardiovascular: Reports as per HPI and Reports no additional cardiovascular complaints Respiratory: Reports as per HPI and Reports no additional respiratory complaints Gastrointestinal: Reports as per HPI and Reports no additional gastrointestinal complaints Genitourinary: Reports no additional female genitourinary complaints Musculoskeletal: Reports no additional musculoskeletal complaints Skin/Breast: Reports system reviewed and no additional complaints, except as docu Psychiatric: Reports no additional psychiatric complaints Endocrine: Reports no additional endocrine complaints Hematologic/Lymphatic: Reports no additional hematologic/lymphatic complaints Allergic/Immunologic: Reports no additional allergic/immunologic complaints Reports system reviewed and no additional complaints, except as documented and Reports Abnormal speech present [facility] Past Medical History Medical History Atherosclerotic cardiovascular 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 Sister Cancer Sister Cancer Social History Social History Housing: House Alcohol intake: current Alcohol intake frequency: holidays/special occasions only Patient Tobacco Use Status: Former Tobacco user Quit Date: 30 years ago e-Cigarette/Vaping Use: Never Used Second Hand Smoke Exposure: No Advance Directives: No Advance Directives Information Provided: Yes service: No Current occupational status: retired Current occupational exposures/hazards: No Cognitive needs: No Hearing needs: No Vision needs: No Physical Exam Vital Signs: Vital Signs: Last Vital Signs Temp 98.7 F 08/14/22 09:48 Pulse 103 H 08/14/22 09:48 Resp 15 08/14/22 09:48 BP 157/58 H 08/14/22 09:48 Pulse Ox 95 08/14/22 09:48 O2 Del Method 08/14/22 09:48 BMI result Body Mass Index 31.9 Vital signs have been reviewed as appeared to be correct. Blood pressure normal. Heart rate normal. Respiration rate normal. Temperature normal. Oxygen saturation normal. Appearance: Alert. Oriented X3. No acute distress. Head: Normal external exam. Normocephalic. Atraumatic. No Garcia signs noted. No raccoon eyes noted Eyes: PERRLA. EOMI. Conjunctiva and sclera normal. Eyelids normal. ENT: TM's Normal. Pharynx normal. Uvula midline. Moist mucous membranes. No trismus noted. No drooling noted. No muffled voice noted. Neck: Normal inspection. Neck supple. FROM. No adenopathy. Thyroid Normal. No meningeal signs. No neck mass noted. CVS: Normal heart rate and rhythm. Heart sound normal. No murmurs noted. Pulses normal throughout. Respiratory: No respiratory distress. Painless inspiration. Breath sounds normal. Mild diffuse expiratory wheezing to both lung payton with expiratory wheezing and prolonged expiration.. Chest nontender. No accessory muscle usage noted or decreased air movement noted. Abdomen: Soft and nontender. Bowel sounds normal in all 4 quadrants. No distention noted. No organomegaly noted. No visible injury noted. Back: No CVA tenderness. Full range of motion noted. Skin: Skin warm and dry. Normal skin color. Normal skin turgor. No rashes/lesions/lacerations noted. Extremities: No lower extremity edema. Extremities exhibit normal range of motion. Extremities nontender. Neuro: Oriented X 3. Cranial nerve exam: II-XII are grossly intact No motor deficit. No sensory deficit. Reflexes normal. Course Course Course Narrative: A 76-year-old male been having exertional dyspnea patient tested positive for COVID, there was a concern of PA for slight elevation of D-dimer CT angio of the chest revealed no [place] PE, patient O2 sat is above 90% while she is in the ED, no apparent respiratory distress while the patient is here patient's report minimal improvement after was given steroid. Mild lactic acidosis likely secondary to albuterol use. Medications Administered Discontinued Medications Generic Name Dose Route Start Last Admin Trade Name Freq PRN Reason Stop Dose Admin Albuterol Sulfate 2.5 mg 08/14/22 07:13 08/14/22 07:37 Albuterol Sulfate (0.083%) 2.5 Mg/3 Ml Vial.Neb INHALE 08/14/22 07:14 2.5 mg ONCE ONE Administration Albuterol/Ipratropium 3 ml 08/14/22 07:13 08/14/22 07:37 Albuterol/Iprat 2.5/0.5mg 3 Ml Ampul.Neb INHALE 08/14/22 07:14 3 ml ONCE ONE Administration Iohexol 65 ml 08/14/22 09:24 08/14/22 09:24 Iohexol 350 Mg/Ml 75 Ml Infus..Btl IV 08/14/22 09:25 65 ml ONCE ONE Administration Iohexol 100 ml 08/14/22 09:35 08/14/22 09:35 Iohexol 350 Mg/Ml 100 Ml Infus..Btl IV 08/14/22 09:36 65 ml ONCE ONE Administration Medical Decision Making Differential Diagnosis Differential Diagnoses: The differential diagnosis associated with the presentation includes (COPD exacerbation, PE, COVID 19 infection, pneumonia, lactic acidosis.) Lab Data MDM Lab Attestation statement: I reviewed the patient's lab results. Result Diagrams: 08/14/22 07:21 08/14/22 07:21 Labs: Lab Results 08/14/22 08/14/22 08/14/22 Range/Units 07:09 07:21 07:21 WBC 11.7 H (4.8-10.8) X10*3/uL RBC 5.29 (4.60-5.80) X10*6/uL Hgb 15.4 (14.0-18.0) g/dl Hct 45.8 (42.0-52.0) % MCV 86.6 (80.0-98.0) fL MCH 29.1 (27.0-33.0) pg MCHC 33.6 (31.0-36.0) g/dl RDW 13.8 (11.0-16.0) % Plt Count 295 (160-400) X10*3/uL MPV 8.6 L (9.4-12.4) fL Immature Gran % (Auto) 0.9 H (0.0-0.4) % Neut % (Auto) 72.2 (45-73) % Lymph % (Auto) 16.3 L (20-40) % [place] % (Auto) 7.0 (2-11) % Eos % (Auto) 3.2 (0-4) % Baso % (Auto) 0.4 (0-2) % Lymph # (Auto) 1.9 (1.2-4.9) X10*3/uL [place] # (Auto) 0.8 (0.1-1.2) X10*3/uL Eos # (Auto) 0.4 (0.0-0.4) X10*3/uL Baso # (Auto) 0.1 (0.0-0.2) X10*3/uL Abs Immat Gran (auto) 0.10 H (0.00-0.03) X10*3/uL Absolute Neuts (auto) 8.5 H (2.0-8.3) x10*3/uL Absolute Nucleated RBC 0.000 (0.0-0.012) X10*3/uL Nucleated RBC % (auto) 0.0 (0.0-0.2) /100WBC D-Dimer High Sensitivty NG/ML Sodium 138 (135-145) mmol/L Potassium 3.4 (3.3-5.1) mmol/L Chloride 97 (96-108) mmol/L Carbon Dioxide 28 (22-29) mmol/L Anion Gap 16 (12-20) BUN 17 H (9-16) mg/dL Creatinine 0.94 (0.5-1.4) mg/dL Estim Creat Clear Calc 76.0 Estimated GFR > 60 Random Glucose 144 H (60-115) mg/dL Lactic Acid (0.5-2.0) mmol/L Lactic Acid F/U @ 2Hr (0.5-2.0) mmol/L Calcium 9.7 (8.4-10.2) mg/dL Total Bilirubin 0.6 (0.0-1.0) mg/dL AST 17 (5-37) U/L ALT 17 (0-40) U/L Alkaline Phosphatase 54 (39-117) U/L Troponin I High Sens (<3.5-35.0) ng/L B-Natriuretic Peptide (<100) pg/mL Total Protein 6.6 (6.5-8.0) g/dL Albumin 4.1 (3.5-5.0) g/dL Influenza Type A (ARLIN) Negative (Negative) Influenza Type A (PCR) (Negative) Influenza Type B (ARLIN) Negative (Negative) Influenza Type B (PCR) (Negative) Influenza A & B Note See Note RSV RNA Qual (PCR) (Negative) SARS-CoV-2 RNA (RT-PCR) (Negative) 08/14/22 08/14/22 08/14/22 Range/Units 07:21 07:33 07:33 WBC (4.8-10.8) X10*3/uL RBC (4.60-5.80) X10*6/uL Hgb (14.0-18.0) g/dl Hct (42.0-52.0) % MCV (80.0-98.0) fL MCH (27.0-33.0) pg MCHC (31.0-36.0) g/dl RDW (11.0-16.0) % Plt Count (160-400) X10*3/uL MPV (9.4-12.4) fL Immature Gran % (Auto) (0.0-0.4) % Neut % (Auto) (45-73) % Lymph % (Auto) (20-40) % [place]ingo % (Auto) (2-11) % Eos % (Auto) (0-4) % Baso % (Auto) (0-2) % Lymph # (Auto) (1.2-4.9) X10*3/uL [place] # (Auto) (0.1-1.2) X10*3/uL Eos # (Auto) (0.0-0.4) X10*3/uL Baso # (Auto) (0.0-0.2) X10*3/uL Abs Immat Gran (auto) (0.00-0.03) X10*3/uL Absolute Neuts (auto) (2.0-8.3) x10*3/uL Absolute Nucleated RBC (0.0-0.012) X10*3/uL Nucleated RBC % (auto) (0.0-0.2) /100WBC D-Dimer High Sensitivty NG/ML Sodium (135-145) mmol/L Potassium (3.3-5.1) mmol/L Chloride (96-108) mmol/L Carbon Dioxide (22-29) mmol/L Anion Gap (12-20) BUN (9-16) mg/dL Creatinine (0.5-1.4) mg/dL Estim Creat Clear Calc Estimated GFR Random Glucose (60-115) mg/dL Lactic Acid 2.7 H* (0.5-2.0) mmol/L Lactic Acid F/U @ 2Hr (0.5-2.0) mmol/L Calcium (8.4-10.2) mg/dL Total Bilirubin (0.0-1.0) mg/dL AST (5-37) U/L ALT (0-40) U/L Alkaline Phosphatase (39-117) U/L Troponin I High Sens 10.6 (<3.5-35.0) ng/L B-Natriuretic Peptide 10 (<100) pg/mL Total Protein (6.5-8.0) g/dL Albumin (3.5-5.0) g/dL Influenza Type A (ARLIN) (Negative) Influenza Type A (PCR) (Negative) Influenza Type B (ARLIN) (Negative) Influenza Type B (PCR) (Negative) Influenza A & B Note RSV RNA Qual (PCR) (Negative) SARS-CoV-2 RNA (RT-PCR) (Negative) 08/14/22 08/14/22 08/14/22 Range/Units 08:03 08:03 09:58 WBC (4.8-10.8) X10*3/uL RBC (4.60-5.80) X10*6/uL Hgb (14.0-18.0) g/dl Hct (42.0-52.0) % MCV (80.0-98.0) fL MCH (27.0-33.0) pg MCHC (31.0-36.0) g/dl RDW (11.0-16.0) % Plt Count (160-400) X10*3/uL MPV (9.4-12.4) fL Immature Gran % (Auto) (0.0-0.4) % Neut % (Auto) (45-73) % Lymph % (Auto) (20-40) % [place]ingo % (Auto) (2-11) % Eos % (Auto) (0-4) % Baso % (Auto) (0-2) % Lymph # (Auto) (1.2-4.9) X10*3/uL [place] # (Auto) (0.1-1.2) X10*3/uL Eos # (Auto) (0.0-0.4) X10*3/uL Baso # (Auto) (0.0-0.2) X10*3/uL Abs Immat Gran (auto) (0.00-0.03) X10*3/uL Absolute Neuts (auto) (2.0-8.3) x10*3/uL Absolute Nucleated RBC (0.0-0.012) X10*3/uL Nucleated RBC % (auto) (0.0-0.2) /100WBC D-Dimer High Sensitivty 286 NG/ML Sodium (135-145) mmol/L Potassium (3.3-5.1) mmol/L Chloride (96-108) mmol/L Carbon Dioxide (22-29) mmol/L Anion Gap (12-20) BUN (9-16) mg/dL Creatinine (0.5-1.4) mg/dL Estim Creat Clear Calc Estimated GFR Random Glucose (60-115) mg/dL Lactic Acid (0.5-2.0) mmol/L Lactic Acid F/U @ 2Hr 3.5 H* (0.5-2.0) mmol/L Calcium (8.4-10.2) mg/dL Total Bilirubin (0.0-1.0) mg/dL AST (5-37) U/L ALT (0-40) U/L Alkaline Phosphatase (39-117) U/L Troponin I High Sens (<3.5-35.0) ng/L B-Natriuretic Peptide (<100) pg/mL Total Protein (6.5-8.0) g/dL Albumin (3.5-5.0) g/dL Influenza Type A (ARLIN) (Negative) Influenza Type A (PCR) NEGATIVE (Negative) Influenza Type B (ARLIN) (Negative) Influenza Type B (PCR) NEGATIVE (Negative) Influenza A & B Note RSV RNA Qual (PCR) NEGATIVE (Negative) SARS-CoV-2 RNA (RT-PCR) POSITIVE A (Negative) Independent Interpretation I performed an independent interpretation of an: CT Scan (Chest CT angio: No PE.) Radiology Impression Discussion of test interpretation with radiology: I have reviewed the radiologist's reading. Discharge Plan Discharge Clinical Impression: COPD (chronic obstructive pulmonary disease), COVID-19 virus infection, Acidosis, lactic Patient Disposition: Home, Self-Care Instructions: Covid-19 Viral Syndrome and Novel Coronavirus (ED) Hey/Ath Additional Instructions: Frequent hand washing, where face mask at all times, keep social distancing, self isolation for a week. Seek immediate medical attention if worsening of breathing or not improving in the next 2-3 days. Prescriptions: New prednisone 20 mg tablet 20 mg PO BID Qty: 10 0RF No Action epinephrine 0.3 mg/0.3 mL auto-injector 0.3 mg IM Q20M PRN (Reason: anaphylaxis) Qty: 2 0RF Rx Instructions: for 2 doses (DME) blood sugar diagnostic Strip See Rx Instructions .ROUTE .NewspepperPPLY Qty: 50 2RF Rx Instructions: USE DIRECTED DAILY desoximetasone 0.25 % cream 1 appl topical BID PRN (Reason: skin irritation) 30 Days Qty: 100 3RF fluticasone propion-salmeterol 500-50 mcg/dose blister with device 1 ea PO BID 30 Days Qty: 60 6RF amlodipine 10 mg tablet 10 mg PO DAILY Qty: 30 6RF Incruse Ellipta 62.5 mcg/actuation blister with device 1 inh inhalation DAILY 30 Days Qty: 30 4RF chlorthalidone 50 mg tablet 50 mg PO QAM 90 Days Qty: 90 3RF metformin 1,000 mg tablet 1,000 mg PO BID 90 Days Qty: 180 0RF rosuvastatin 10 mg tablet 10 mg PO BEDTIME 30 Days Qty: 30 0RF amoxicillin 500 mg capsule 1,000 mg PO BID 7 Days Qty: 28 0RF doxycycline hyclate 100 mg tablet 100 mg PO Q12H 7 Days Qty: 14 0RF latanoprost 0.005 % drops 1 drp ophthalmic (eye) BEDTIME Breztri Aerosphere 160-9-4.8 mcg/actuation HFA aerosol inhaler 2 inh inhalation BID Zioptan (PF) 0.0015 % dropperette ophthalmic (eye) DAILY PRN tamsulosin 0.4 mg capsule 0.4 mg PO BID aspirin 81 mg tablet,delayed release (DR/EC) 81 mg PO DAILY hydralazine 50 mg tablet 50 mg PO TID 90 Days Qty: 270 3RF betamethasone dipropionate 0.05 % cream 1 appl topical BID Referrals: Denis Diehl MD [Primary Care Provider] -
[2022-08-14 07:26] LABS: MANUAL DIFF FLAG NO
[2022-08-14 07:29] LABS: Basophils Absolute Auto 0.1 X10*3/uL (0.0-0.2); Basophils Percent Auto 0.4 % (0-2); Eosinophils Absolute Auto 0.4 X10*3/uL (0.0-0.4); Eosinophils Percent Auto 3.2 % (0-4); Hematocrit 45.8 % (42.0-52.0); Hemoglobin 15.4 g/dl (14.0-18.0); Imm Gran Pct Auto 0.9 % (0.0-0.4); Lymphocytes Absolute Auto 1.9 X10*3/uL (1.2-4.9); Lymphocytes Percent Auto 16.3 % (20-40); Mean Corpuscular HGB Conc 33.6 g/dl (31.0-36.0); Mean Corpuscular Hemoglobin 29.1 pg (27.0-33.0); Mean Corpuscular Volume 86.6 fL (80.0-98.0); Mean Platelet Volume 8.6 fL (9.4-12.4); Monocytes Absolute Auto 0.8 X10*3/uL (0.1-1.2); Neutrophils Absolute Auto 8.5 x10*3/uL (2.0-8.3); Neutrophils Percent Auto 72.2 % (45-73); Platelet Count 295 X10*3/uL (160-400); Red Blood Count 5.29 X10*6/uL (4.60-5.80); Red Cell Distribution Width 13.8 % (11.0-16.0); White Blood Count 11.7 X10*3/uL (4.8-10.8)
[2022-08-14 07:40] VITALS: PULSE 89; RESP 15; O2SAT 94
[2022-08-14 07:42] VITALS: BP 130/60; PULSE 92; RESP 16; O2SAT 99
--- NOTE | 2022-08-14 07:44 | PC.NURSE ---
pt. aler and oriented. complains of SOB. LS diminished on RLL. other areas clear. labs sent.
[2022-08-14 07:46] LABS: IDNOW Serial# 16C4AD1C; Influenza A Negative (Negative); Influenza B2 Negative (Negative)
[2022-08-14 08:03] LABS: B Type Natriuretic Peptide 10 pg/mL (<100)
[2022-08-14 08:18] LABS: D Dimer High Sensitivity 286 NG/ML
[2022-08-14 08:20] LABS: Lactic Acid 2.7 mmol/L (0.5-2.0)
[2022-08-14 08:50] LABS: Influenza A PCR NEGATIVE (Negative); Influenza B PCR NEGATIVE (Negative); Resp Syncy Virus RNA Qual PCR NEGATIVE (Negative); SARS COV2 PCR INHOUSE POSITIVE (Negative)
[2022-08-14 09:01] LABS: Alanine Aminotransferase 17 U/L (0-40); Albumin Level 4.1 g/dL (3.5-5.0); Alkaline Phosphatase 54 U/L (39-117); Anion Gap 16 (12-20); Aspartate Amino Transferase 17 U/L (5-37); Bilirubin Total 0.6 mg/dL (0.0-1.0); Blood Urea Nitrogen 17 mg/dL (9-16); Calcium 9.7 mg/dL (8.4-10.2); Carbon Dioxide 28 mmol/L (22-29); Chloride 97 mmol/L (96-108); Estimated Glomerular Filt Rate > 60; Glucose Random 144 mg/dL (60-115); Potassium 3.4 mmol/L (3.3-5.1); Sodium 138 mmol/L (135-145); Total Protein 6.6 g/dL (6.5-8.0)
[2022-08-14 09:38] LABS: Troponin-I High Sensitivity 10.6 ng/L (<3.5-35.0)
[2022-08-14 09:48] VITALS: BP 157/58; PULSE 103; RESP 15; TEMP 37.1; O2SAT 95
[2022-08-14 10:52] LABS: ~Lactic Acid-LAB USE ONLY 3.5 mmol/L (0.5-2.0)
[2022-08-14 12:18] VITALS: BP 118/73; PULSE 91; RESP 16; O2SAT 94
[2022-08-14 12:50] LABS: ~Lactic Acid-LAB USE ONLY 2.1 mmol/L (0.5-2.0)
== END 2022-08-14 12:25 | disposition home or self-care (01) ==
PROVIDERS: Emergency Provider Emergency Medicine; PCP Family Medicine
DX: U07.1 COVID-19 (principal); J44.9 Chronic obstructive pulmonary disease, unspecified; E87.20 Acidosis, unspecified; R06.02 Shortness of breath; E11.9 Type 2 diabetes mellitus without complications; I10 Essential (primary) hypertension; E78.00 Pure hypercholesterolemia, unspecified; Z79.82 Long term (current) use of aspirin; Z79.899 Other long term (current) drug therapy; Z87.891 Personal history of nicotine dependence
CPT/HCPCS: 0241U; 36415; 71275; 80053; 83605; 83880; 84484; 85025; 85379; 87040; 87502; 93005; 94640; 99285; Q9967

== ENCOUNTER → 2022-08-28 08:07 | Outpatient (REF) | payer MEDICARE, SELFPAY ==
--- NOTE | 2022-08-28 08:11 | CA_ITS ---
Transthoracic Echocardiogram Patient (Last, First, Middle): Taqueria Adkins, Gender: Male Date of : 1945 Age: 77 Procedure Date: 08/28/2022 Procedure Type: Transthoracic Echocardiogram Location: OP Height: 172.72 cm Weight: 95.26 kg BSA: 2.09 m2 Heart Rate: 93 bpm BP: 145 / 75 mmHg Faith Doctor: DERRICK Referring MD: Hernandez Jennings MD Symptoms: I25.10 - Atherosclerotic heart disease of augustine coronary artery without... Study Quality: Technically Difficult ECG Rhythm: Sinus Conclusions: - The left ventricular systolic function is normal. The calculated ejection fraction is 62% by biplane method. - There is mild calcification of the aortic valve. - There is mild mitral annular calcification. Findings Left Ventricle Normal left ventricular cavity size. There is mildly increased left ventricular wall thickness. The left ventricular systolic function is normal. The calculated ejection fraction is 62% by biplane method. There is no evidence of regional wall motion abnormalities. E/E prime ratio is between 8 and 15 consistent with indeterminate filling pressures. Evidence suggests grade I (mild) diastolic dysfunction. Right Ventricle Mildly increased right ventricular cavity size. There is normal right ventricular systolic function. Atria Both atria are normal in size. Aortic Valve The aortic valve was not well visualized. There is mild calcification of the aortic valve. There is no aortic valve stenosis. There is no aortic valve regurgitation. Mitral Valve The mitral valve appears normal. There is mild mitral annular calcification. There is no mitral valve regurgitation. There is no mitral valve stenosis. Pulmonic Valve The pulmonic valve is likely normal. Tricuspid Valve There is trace tricuspid valve regurgitation. There is no evidence of pulmonary hypertension. Great Vessels The asc aorta is normal in size. Venous The inferior vena cava is normal in size and collapses greater than 50% with inspiration. Pericardium/Pleural There is no evidence of pericardial effusion. Prior Study Comparison No significant change compared to prior study dated: 02/10/2021. Measurements 2D Linear Measurements IVSd: 1.14 0.6-0.9/0.6-1.0 cm LVIDd: 5.22 3.9-5.3/4.2-5.9 cm LVIDd Index: 2.50 2.4-3.2/2.2-3.1 cm/m2 LVIDs: 4.15 2.0-3.6 cm LVPWd: 1.21 0.7-1.1 cm LA Diam: 3.50 2.7-3.8/3.0-4.0 cm LAIDs Index: 1.67 1.5-2.3 cm/m2 LV Mass: 303.22 67-162/88-224 g LV Mass Index: 145.08 43-95/49-115 g/m2 LVOT Diam: 1.90 3.0+(-)1.3 cm 2D Systolic Function EF 4C: 59.10 >55% EF 2C: 63.50 >55% EF BiP: 61.80 >55% Mitral Valve MV Pk E: 1.05 MV PK A: 0.97 MV Decel Time: 186.00 E/A: 1.10 E'Lateral: 6.74 E'Medial: 8.27 E/E' Med: 12.70 E/E' Lat: 15.60 PHT: 55.00 MVA PHT: 4.00 Decel [place]: 5.65 Aortic Valve AoV Pk [place]: 1.56 AoV Mn [place]: 1.10 AoV VTI: 0.31 AoV Pk Grad: 10.00 Aov Mn Grad: 5.00 JUMANA Cont.VTI: 2.07 LVOT LVOT Pk [place]: 1.16 LVOT Mn [place]: 0.80 LVOT VTI: 0.23 LVOT Pk Grad: 5.00 LVOT Mn Grad: 3.00 LVOT Diam: 1.90 LVOT Area: 2.84 Diastolic Function MV Pk E: 1.05 MV Pk A: 0.97 E/A: 1.10 E'Medial: 8.27 E/E' Med: 12.70 E' Laterial: 6.74 E/E' Lat: 15.60 Right Ventricle TAPSE (mm): 19.80 TVS' [place]: 8.76 Tricuspid Valve TR Pk [place]: 2.43 TR Pk Grad: 24.00 RA Press: 3.00 RVSP: 27.00 Great Vessels Aorta Sinus of Valsalva: 3.70 2.0-3.5 cm Ao Asc: 3.30 2.1-3.4 cm Pulmonary Valve PV Pk [place]: 1.21 Peak PV Grad: 6.00 Updated in Other Vendor System with Status of Final Hernandez Jennings MD electronically signed on 08/29/2022 9:23:53 AM with status of Final
== END ==
LOC: HO.CARD 08:07
PROVIDERS: PCP Family Medicine; Visit Provider Internal Medicine
DX: I25.10 Atherosclerotic heart disease of native coronary artery without angina pectoris (principal); R06.02 Shortness of breath
CPT/HCPCS: 93306

== ENCOUNTER → 2022-09-06 10:32 | Outpatient (BNVA) | payer MEDICARE, SELFPAY | PROVIDERS: PCP Family Medicine; Visit Provider Nurse Practitioner Family | DX: G47.33 Obstructive sleep apnea (adult) (pediatric) (principal) | CPT/HCPCS: 99212 ==

== ENCOUNTER 2022-09-12 14:03 | Emergency (ER) | payer MEDICARE, SELFPAY ==
--- NOTE | ~2022-09-12 | XR_ITS ---
EXAMINATION: XR ELBOW, LEFT CLINICAL INFORMATION: Swelling, pain COMPARISON: None TECHNIQUE: AP, lateral, and oblique views of the left elbow. FINDINGS: No fracture or dislocation. Alignment is maintained. Joint spaces are maintained. No elbow joint effusion. Prominent soft tissue swelling overlies the olecranon. XR/XR elbow LT min 3V IMPRESSION: Prominent soft tissue swelling overlies the olecranon. This could be associated with olecranon bursitis.
[2022-09-12 14:48] VITALS: BP 149/70; PULSE 95; RESP 20; TEMP 36.4; O2SAT 94; BMI 31.9
--- NOTE | 2022-09-12 14:48 | ED.UPPEXIN ---
HPI - Extremity Injury (Upper) General Chief Complaint: Extremity Injury, Upper <MARKELL Santiago - Last Filed: 09/12/22 14:52> Stated Complaint: Infected bursa elbow <MARKELL Santiago Last Filed: 09/12/22 14:52> Time Seen by Provider: 09/12/22 17:46 <MARKELL Santiago - Last Filed: 09/12/22 14:52> Source: patient <MARKELL Lopez - Last Filed: 09/12/22 18:23> Mode of arrival: ambulatory <MARKELL Lopez Last Filed: 09/12/22 18:23> Limitations: no limitations <MARKELL Lopez Last Filed: 09/12/22 18:23> History of Present Illness HPI narrative: 77 yo male with history of left elbow burisitis x6 months s/p drainage 1 week ago (120mL bloody) at [facility] in [place], [place] who presents to the ER from the [facility] with concern for joint infection. 50cc fluid was drained today and it was cloudy, unlike the 1st time it was drained. No fevers at home and he reports full ROM at home. 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 He denies any fevers, paresthesias, chest pain or shortness of breath, inability to move the joint or any other symptoms complaints or concerns at this time. <MARKELL Lopez - Last Filed: 09/12/22 18:23> MD complaint: injury to: left and elbow <MARKELL Lopez Last Filed: 09/12/22 18:23> Onset (ago): minute(s) ([employer]) <MARKELL Lopez Last Filed: 09/12/22 18:23> Other Extremity Injury: left: elbow <MARKELL Lopez Last Filed: 09/12/22 18:23> Other injuries: none <MARKELL Lopez Last Filed: 09/12/22 18:23> Related Data Home Medications: Home Medications Medication Instructions Recorded Confirmed tamsulosin 0.4 mg capsule 0.4 mg PO BID 07/01/20 08/01/22 aspirin 81 mg tablet,delayed 81 mg PO DAILY 08/03/20 08/01/22 release betamethasone dipropionate 0.05 % 1 appl topical BID 08/15/21 08/01/22 topical cream tafluprost (PF) 0.0015 % eye drops drp ophthalmic (eye) DAILY PRN 12/29/21 08/01/22 in a dropperette (Zioptan (PF)) budesonide 160 mcg-glycopyr 9 2 inh inhalation BID 03/23/22 08/01/22 mcg-formot 4.8 mcg/actuation HFA inhaler (Breztri Aerosphere) albuterol sulfate 90 mcg/actuation 0 mcg inhalation 09/06/22 aerosol inhaler brinzolamide 1 %-brimonidine 0.2 % 0 drp ophthalmic (eye) 09/06/22 eye drops,suspension (Simbrinza) Previous Rx's Medication Instructions Recorded epinephrine 0.3 mg/0.3 mL 0.3 mg (0.3 mL) IM Q20M PRN 07/06/20 injection, auto-injector anaphylaxis #2 ea blood sugar diagnostic #50 ea 07/26/20 desoximetasone 0.25 % topical cream 1 appl topical BID PRN skin 09/02/20 irritation 30 days #100 grams fluticasone 500 mcg-salmeterol 50 1 ea PO BID 30 days #60 ea 09/04/20 mcg/dose blistr powdr for inhalation hydralazine 50 mg tablet 50 mg PO TID 90 days #270 tabs 01/30/22 chlorthalidone 50 mg tablet 50 mg PO QAM 90 days #90 tabs 05/05/22 metformin 1,000 mg tablet 1,000 mg PO BID 90 days #180 tabs 08/01/22 prednisone 20 mg tablet 20 mg PO BID #10 tabs 08/14/22 amlodipine 10 mg tablet 10 mg PO DAILY #30 tabs 08/27/22 rosuvastatin 10 mg tablet 10 mg PO BEDTIME 30 days #30 tabs 08/27/22 cephalexin 500 mg capsule 500 mg PO Q6H cellulitis of left 09/12/22 elbow 14 days #56 caps doxycycline monohydrate 100 mg 100 mg PO BID cellulitis to elbow 09/12/22 tablet 14 days #28 tabs ibuprofen 800 mg tablet 800 mg PO Q8H PRN pain #20 tabs 09/12/22 <MARKELL Santiago - Last Filed: 09/12/22 14:52> Allergies/Adverse Reactions: Allergies Allergy/AdvReac Type Severity Reaction Status Date / Time SADI Inhibitors Allergy Unknown FACIAL Verified 09/06/22 11:03 [SADI INHIBITORS] SWELLING lisinopril [LISINOPRIL] Allergy Unknown FACIAL Verified 09/06/22 11:03 SWELLING, hives, lip edema oxycodone [From PERCOCET] Allergy Unknown JOINT Verified 09/06/22 11:03 STIFFNESS peanut [PEANUTS] Allergy Unknown SWELLING,TH Verified 09/06/22 11:03 ROAT,HIVES <MARKELL Santiago - Last Filed: 09/12/22 14:52> Review of Systems Review of Systems: Constitutional : No Weight loss, No Fever, No Chills, No Night Sweats, No Fatigue, No Malaise ENT/Mouth : No Hearing loss, No Ear Pain, No Nasal Congestion, No Sinus Pain, No Hoarseness, No sore throat, No Rhinorrhea, No Swallowing Difficulty Eyes: No Eye Pain, No Swelling, No Redness, No Foreign Body, No Discharge, No Vision Changes Cardiovascular : No Chest Pain, No SOB, No Dyspnea on Exertion, No Orthopnea, No Edema, No Palpitations Respiratory : No Cough, No Sputum, No Wheezing, No Smoke Exposure, No Dyspnea Gastrointestinal : No Nausea, No Vomiting, No Diarrhea, No Constipation, No abdominal Pain, No Hematochezia, No Melena Genitourinary : no irregular bleeding, No Dysuria, No Urinary Frequency, No Hematuria, No Urinary Incontinence, No Urgency, No Flank Pain, No Urinary Flow Changes, No Hesitancy Musculoskeletal : + left elbow joint pain/swelling/Erythema, No Myalgias, Skin : No Skin Lesions, No rash Neuro : No Weakness, No Numbness, No Paresthesias, No Loss of Consciousness, No Dizziness, No Headache Psych : No Anxiety/Panic, No Depression, No SI/HI/AH/VH, No Social Issues, Heme/Lymph: No Bruising, No Bleeding,No Lymphadenopathy Endocrine : No Polyuria, No Polydipsia, No Temperature Intolerance <MARKELL Lopez - Last Filed: 09/12/22 18:23> Yes all other systems are reviewed and are negative <MARKELL Lopez - Last Filed: 09/12/22 18:23> [facility], LAT[facility] Past Medical History Attestation statement: The following information was validated with the patient. 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 Sister Cancer Sister Cancer <MARKELL Santiago - Last Filed: 09/12/22 14:52> Social History Social History: Social History Housing: House Alcohol intake: current Alcohol intake frequency: holidays/special occasions only Patient Tobacco Use Status: Former Tobacco user Quit Date: 30 years ago e-Cigarette/Vaping Use: Never Used Second Hand Smoke Exposure: No Advance Directives: No Advance Directives Information Provided: Yes service: No Current occupational status: retired Current occupational exposures/hazards: No Cognitive needs: No Hearing needs: No Vision needs: No <MARKELL Santiago - Last Filed: 09/12/22 14:52> Physical Exam Vital Signs: Vital Signs: Last Vital Signs Temp 97.5 F 09/12/22 14:48 Pulse 95 09/12/22 14:48 Resp 20 09/12/22 14:48 BP 149/70 H 09/12/22 14:48 Pulse Ox 94 09/12/22 14:48 O2 Del Method 09/12/22 14:48 BMI result Body Mass Index 31.9 <MARKELL Santiago - Last Filed: 09/12/22 14:52> Vital Signs: Last Vital Signs Temp 97.5 F 09/12/22 14:48 Pulse 95 09/12/22 14:48 Resp 20 09/12/22 14:48 BP 149/70 H 09/12/22 14:48 Pulse Ox 94 09/12/22 14:48 O2 Del Method 09/12/22 14:48 BMI result Body Mass Index 31.9 vital signs have been reviewed as normal and appeared to be correct. Blood pressure normal Heart rate normal. Respiration rate normal. Temperature normal. Oxygen saturation normal. <MARKELL Lopez - Last Filed: 09/12/22 18:23> Appearance: Alert. Oriented X3. No acute distress. Head: Normal external exam. Normocephalic. Atraumatic. Eyes: PERRLA. EOMI. Conjunctiva and sclera normal. Eyelids normal. ENT: Pharynx normal. Uvula midline. Moist mucous membranes. Neck: Normal inspection. Neck supple. FROM. CVS: Normal heart rate and rhythm. Respiratory: No respiratory distress. Painless inspiration. Skin: Skin warm and dry. Normal skin color. Normal skin turgor. No rashes/lesions/lacerations noted. Extremities: to left elbow at the bursa patient has soft tissue swelling and erythema no streaking is noted patient has full range of motion of the left elbow/ shoulder and hand and wrist joint. No pitting edema to upper extremity. Otherwise all other extremities exhibit normal range of motion nontender. Neuro: Oriented X 3. No motor deficit. No sensory deficit. Reflexes normal. Normal steady gait. No focal neuro deficits noted. Vascular: + radial pulses. Normal cap refill. No cyanosis noted to upper extremity nails. <MARKELL Lopez - Last Filed: 09/12/22 18:23> Course Course Course Narrative: RME - 77 yo male with history of left elbow burisitis x6 months s/p drainage 1 week ago (120mL bloody) at [facility] in [place], [place] who presents to the ER from [facility] with concern for joint infection. 50cc fluid was drained today and it was cloudy, unlike the 1st time it was drained. No fevers at home and he reports full ROM at home. Will get septic labs, HR 100 in triage. <MARKELL Santiago - Last Filed: 09/12/22 14:52> Reevaluation(s) Reevaluation #1: Labs reviewed and patient with leukocytosis of 14,000. ESR 49. Chloride 95. Carbon dioxide 31. Yet hitting the leg a to random glucose 121. CRP 7.65. Otherwise all other labs are within normal limits. Lactic acid 0.8. X-ray of left elbow revealed prominent soft tissue swelling overlies the olecranon this could be associated with olecranon bursitis. Otherwise no other acute processes. Therefore consulted with orthopedic MARKELL Mckeon and I sent her a video of the patient with full range of motion of his left elbow and barely having any tenderness on palpation and she reports that this is septic bursa NOT septic joint. Edema is in the bursa and if in the joint which is very or would not be able to range from pain. She reported that he can start on oral antibiotics and we can see him as an outpatient although if he had it drained at [facility] an end field [place] that he should return there. Therefore we will educate him on cellulitis and instruct patient to return if any worsening redness or inability to move the joint or any spreading redness and that he should follow back up with [facility] and and field tomorrow morning and to return if any new or worsening symptoms. Patient understands agrees with this plan. <MARKELL Lopez - Last Filed: 09/12/22 18:23> Time: 18:16 <MARKELL Lopez - Last Filed: 09/12/22 18:23> Medications Administered Discontinued Medications Generic Name Dose Route Start Last Admin Trade Name Freq PRN Reason Stop Dose Admin Cephalexin HCl 500 mg 09/12/22 18:00 09/12/22 18:17 Cephalexin 500 Mg Capsule PO 09/12/22 18:01 500 mg ONCE ONE Administration Doxycycline Monohydrate 100 mg 09/12/22 18:00 09/12/22 18:17 Doxycycline Monohydrate 100 Mg Capsule PO 09/12/22 18:01 100 mg ONCE ONE Administration <MARKELL Santiago - Last Filed: 09/12/22 14:52> Medications Administered Discontinued Medications Generic Name Dose Route Start Last Admin Trade Name Rosalina PRN Reason Stop Dose Admin Cephalexin HCl 500 mg 09/12/22 18:00 09/12/22 18:17 Cephalexin 500 Mg Capsule PO 09/12/22 18:01 500 mg ONCE ONE Administration Doxycycline Monohydrate 100 mg 09/12/22 18:00 09/12/22 18:17 Doxycycline Monohydrate 100 Mg Capsule PO 09/12/22 18:01 100 mg ONCE ONE Administration <MARKELL Lopez - Last Filed: 09/12/22 18:23> Medical Decision Making Lab Data MDM Lab Attestation statement: I reviewed the patient's lab results. <MARKELL Lopez - Last Filed: 09/12/22 18:23> Result Diagrams: 09/12/22 16:14 09/12/22 16:14 <MARKELL Santiago - Last Filed: 09/12/22 14:52> Labs: Lab Results 09/12/22 09/12/22 09/12/22 Range/Units 16:14 16:14 16:14 WBC 14.2 H (4.8-10.8) X10*3/uL RBC 5.10 (4.60-5.80) X10*6/uL Hgb 14.9 (14.0-18.0) g/dl Hct 44.3 (42.0-52.0) % MCV 86.9 (80.0-98.0) fL MCH 29.2 (27.0-33.0) pg MCHC 33.6 (31.0-36.0) g/dl RDW 14.1 (11.0-16.0) % Plt Count 335 (160-400) X10*3/uL MPV 8.3 L (9.4-12.4) fL Immature Gran % (Auto) 0.9 H (0.0-0.4) % Neut % (Auto) 73.8 H (45-73) % Lymph % (Auto) 13.6 L (20-40) % [place] % (Auto) 8.8 (2-11) % Eos % (Auto) 2.3 (0-4) % Baso % (Auto) 0.6 (0-2) % Lymph # (Auto) 1.9 (1.2-4.9) X10*3/uL [place] # (Auto) 1.2 (0.1-1.2) X10*3/uL Eos # (Auto) 0.3 (0.0-0.4) X10*3/uL Baso # (Auto) 0.1 (0.0-0.2) X10*3/uL Abs Immat Gran (auto) 0.13 H (0.00-0.03) X10*3/uL Absolute Neuts (auto) 10.5 H (2.0-8.3) x10*3/uL Absolute Nucleated RBC 0.000 (0.0-0.012) X10*3/uL Nucleated RBC % (auto) 0.0 (0.0-0.2) /100WBC ESR (0-15) MM/HR Sodium 139 (135-145) mmol/L Potassium 3.6 (3.3-5.1) mmol/L Chloride 95 L (96-108) mmol/L Carbon Dioxide 31 H (22-29) mmol/L Anion Gap 17 (12-20) BUN 14 (9-16) mg/dL Creatinine 0.95 (0.5-1.4) mg/dL Estim Creat Clear Calc 74.0 Estimated GFR > 60 Random Glucose 121 H (60-115) mg/dL Lactic Acid 0.8 (0.5-2.0) mmol/L Calcium 9.6 (8.4-10.2) mg/dL Magnesium 1.9 (1.6-2.6) mg/dL Total Bilirubin 0.7 (0.0-1.0) mg/dL Direct Bilirubin 0.3 (0.0-0.5) mg/dL AST 20 (5-37) U/L ALT 14 (0-40) U/L Alkaline Phosphatase 63 (39-117) U/L C-Reactive Protein 7.65 H (< or = 0.50) mg/dL Total Protein 7.3 (6.5-8.0) g/dL Albumin 4.5 (3.5-5.0) g/dL 09/12/22 Range/Units 16:14 WBC (4.8-10.8) X10*3/uL RBC (4.60-5.80) X10*6/uL Hgb (14.0-18.0) g/dl Hct (42.0-52.0) % MCV (80.0-98.0) fL MCH (27.0-33.0) pg MCHC (31.0-36.0) g/dl RDW (11.0-16.0) % Plt Count (160-400) X10*3/uL MPV (9.4-12.4) fL Immature Gran % (Auto) (0.0-0.4) % Neut % (Auto) (45-73) % Lymph % (Auto) (20-40) % [place] % (Auto) (2-11) % Eos % (Auto) (0-4) % Baso % (Auto) (0-2) % Lymph # (Auto) (1.2-4.9) X10*3/uL [place] # (Auto) (0.1-1.2) X10*3/uL Eos # (Auto) (0.0-0.4) X10*3/uL Baso # (Auto) (0.0-0.2) X10*3/uL Abs Immat Gran (auto) (0.00-0.03) X10*3/uL Absolute Neuts (auto) (2.0-8.3) x10*3/uL Absolute Nucleated RBC (0.0-0.012) X10*3/uL Nucleated RBC % (auto) (0.0-0.2) /100WBC ESR 49 H (0-15) MM/HR Sodium (135-145) mmol/L Potassium (3.3-5.1) mmol/L Chloride (96-108) mmol/L Carbon Dioxide (22-29) mmol/L Anion Gap (12-20) BUN (9-16) mg/dL Creatinine (0.5-1.4) mg/dL Estim Creat Clear Calc Estimated GFR Random Glucose (60-115) mg/dL Lactic Acid (0.5-2.0) mmol/L Calcium (8.4-10.2) mg/dL Magnesium (1.6-2.6) mg/dL Total Bilirubin (0.0-1.0) mg/dL Direct Bilirubin (0.0-0.5) mg/dL AST (5-37) U/L ALT (0-40) U/L Alkaline Phosphatase (39-117) U/L C-Reactive Protein (< or = 0.50) mg/dL Total Protein (6.5-8.0) g/dL Albumin (3.5-5.0) g/dL <MARKELL Santiago - Last Filed: 09/12/22 14:52> Lab Results 09/12/22 09/12/22 09/12/22 Range/Units 16:14 16:14 16:14 WBC 14.2 H (4.8-10.8) X10*3/uL RBC 5.10 (4.60-5.80) X10*6/uL Hgb 14.9 (14.0-18.0) g/dl Hct 44.3 (42.0-52.0) % MCV 86.9 (80.0-98.0) fL MCH 29.2 (27.0-33.0) pg MCHC 33.6 (31.0-36.0) g/dl RDW 14.1 (11.0-16.0) % Plt Count 335 (160-400) X10*3/uL MPV 8.3 L (9.4-12.4) fL Immature Gran % (Auto) 0.9 H (0.0-0.4) % Neut % (Auto) 73.8 H (45-73) % Lymph % (Auto) 13.6 L (20-40) % [place] % (Auto) 8.8 (2-11) % Eos % (Auto) 2.3 (0-4) % Baso % (Auto) 0.6 (0-2) % Lymph # (Auto) 1.9 (1.2-4.9) X10*3/uL [place] # (Auto) 1.2 (0.1-1.2) X10*3/uL Eos # (Auto) 0.3 (0.0-0.4) X10*3/uL Baso # (Auto) 0.1 (0.0-0.2) X10*3/uL Abs Immat Gran (auto) 0.13 H (0.00-0.03) X10*3/uL Absolute Neuts (auto) 10.5 H (2.0-8.3) x10*3/uL Absolute Nucleated RBC 0.000 (0.0-0.012) X10*3/uL Nucleated RBC % (auto) 0.0 (0.0-0.2) /100WBC ESR (0-15) MM/HR Sodium 139 (135-145) mmol/L Potassium 3.6 (3.3-5.1) mmol/L Chloride 95 L (96-108) mmol/L Carbon Dioxide 31 H (22-29) mmol/L Anion Gap 17 (12-20) BUN 14 (9-16) mg/dL Creatinine 0.95 (0.5-1.4) mg/dL Estim Creat Clear Calc 74.0 Estimated GFR > 60 Random Glucose 121 H (60-115) mg/dL Lactic Acid 0.8 (0.5-2.0) mmol/L Calcium 9.6 (8.4-10.2) mg/dL Magnesium 1.9 (1.6-2.6) mg/dL Total Bilirubin 0.7 (0.0-1.0) mg/dL Direct Bilirubin 0.3 (0.0-0.5) mg/dL AST 20 (5-37) U/L ALT 14 (0-40) U/L Alkaline Phosphatase 63 (39-117) U/L C-Reactive Protein 7.65 H (< or = 0.50) mg/dL Total Protein 7.3 (6.5-8.0) g/dL Albumin 4.5 (3.5-5.0) g/dL 09/12/22 Range/Units 16:14 WBC (4.8-10.8) X10*3/uL RBC (4.60-5.80) X10*6/uL Hgb (14.0-18.0) g/dl Hct (42.0-52.0) % MCV (80.0-98.0) fL MCH (27.0-33.0) pg MCHC (31.0-36.0) g/dl RDW (11.0-16.0) % Plt Count (160-400) X10*3/uL MPV (9.4-12.4) fL Immature Gran % (Auto) (0.0-0.4) % Neut % (Auto) (45-73) % Lymph % (Auto) (20-40) % [place] % (Auto) (2-11) % Eos % (Auto) (0-4) % Baso % (Auto) (0-2) % Lymph # (Auto) (1.2-4.9) X10*3/uL [place] # (Auto) (0.1-1.2) X10*3/uL Eos # (Auto) (0.0-0.4) X10*3/uL Baso # (Auto) (0.0-0.2) X10*3/uL Abs Immat Gran (auto) (0.00-0.03) X10*3/uL Absolute Neuts (auto) (2.0-8.3) x10*3/uL Absolute Nucleated RBC (0.0-0.012) X10*3/uL Nucleated RBC % (auto) (0.0-0.2) /100WBC ESR 49 H (0-15) MM/HR Sodium (135-145) mmol/L Potassium (3.3-5.1) mmol/L Chloride (96-108) mmol/L Carbon Dioxide (22-29) mmol/L Anion Gap (12-20) BUN (9-16) mg/dL Creatinine (0.5-1.4) mg/dL Estim Creat Clear Calc Estimated GFR Random Glucose (60-115) mg/dL Lactic Acid (0.5-2.0) mmol/L Calcium (8.4-10.2) mg/dL Magnesium (1.6-2.6) mg/dL Total Bilirubin (0.0-1.0) mg/dL Direct Bilirubin (0.0-0.5) mg/dL AST (5-37) U/L ALT (0-40) U/L Alkaline Phosphatase (39-117) U/L C-Reactive Protein (< or = 0.50) mg/dL Total Protein (6.5-8.0) g/dL Albumin (3.5-5.0) g/dL <MARKELL Lopez - Last Filed: 09/12/22 18:23> Independent Interpretation I performed an independent interpretation of an: Plain X-Ray <MARKELL Lopez - Last Filed: 09/12/22 18:23> Interpretation: EXAMINATION: XR ELBOW, LEFT CLINICAL INFORMATION: Swelling, pain? COMPARISON: None? TECHNIQUE: AP, lateral, and oblique views of the left elbow. FINDINGS: No fracture or dislocation. Alignment is maintained. Joint spaces are maintained. No elbow joint effusion. Prominent soft tissue swelling overlies the olecranon.? XR/XR elbow LT min 3V IMPRESSION: Prominent soft tissue swelling overlies the olecranon. This could be associated with olecranon bursitis. <MARKELL Lopez Last Filed: 09/12/22 18:23> Radiology Impression Discussion of test interpretation with radiology: I have reviewed the radiologist's reading. <MARKELL Lopez - Last Filed: 09/12/22 18:23> Discharge Plan Discharge Clinical Impression: Septic bursitis of elbow, Cellulitis <MARKELL Santiago Last Filed: 09/12/22 14:52> Patient Disposition: Home, Self-Care <MARKELL Santiago Last Filed: 09/12/22 14:52> Additional Instructions: You should call the orthopedic office tomorrow for follow-up this week and let them know that you have an infected bursa not septic joint and that we started you on antibiotics. If he developed any fevers, worsening redness, spreading of the redness up the arm following a vein or inability to move the joint in you will need to return immediately. <MARKELL Santiago - Last Filed: 09/12/22 14:52> Prescriptions: New doxycycline monohydrate 100 mg tablet 100 mg PO BID 14 Days Qty: 28 0RF cephalexin 500 mg capsule 500 mg PO Q6H 14 Days Qty: 56 0RF ibuprofen 800 mg tablet 800 mg PO Q8H PRN (Reason: pain) Qty: 20 0RF No Action epinephrine 0.3 mg/0.3 mL auto-injector 0.3 mg IM Q20M PRN (Reason: anaphylaxis) Qty: 2 0RF Rx Instructions: for 2 doses (DME) blood sugar diagnostic Strip See Rx Instructions .ROUTE .MEDSUPPLY Qty: 50 2RF Rx Instructions: USE DIRECTED DAILY desoximetasone 0.25 % cream 1 appl topical BID PRN (Reason: skin irritation) 30 Days Qty: 100 3RF fluticasone propion-salmeterol 500-50 mcg/dose blister with device 1 ea PO BID 30 Days Qty: 60 6RF chlorthalidone 50 mg tablet 50 mg PO QAM 90 Days Qty: 90 3RF metformin 1,000 mg tablet 1,000 mg PO BID 90 Days Qty: 180 0RF amlodipine 10 mg tablet 10 mg PO DAILY Qty: 30 6RF rosuvastatin 10 mg tablet 10 mg PO BEDTIME 30 Days Qty: 30 0RF prednisone 20 mg tablet 20 mg PO BID Qty: 10 0RF Breztri Aerosphere 160-9-4.8 mcg/actuation HFA aerosol inhaler 2 inh inhalation BID Zioptan (PF) 0.0015 % dropperette ophthalmic (eye) DAILY PRN tamsulosin 0.4 mg capsule 0.4 mg PO BID aspirin 81 mg tablet,delayed release (DR/EC) 81 mg PO DAILY hydralazine 50 mg tablet 50 mg PO TID 90 Days Qty: 270 3RF betamethasone dipropionate 0.05 % cream 1 appl topical BID albuterol sulfate 90 mcg/actuation HFA aerosol inhaler 0 mcg inhalation Simbrinza 1-0.2 % drops,suspension 0 drp ophthalmic (eye) <MARKELL Santiago - Last Filed: 09/12/22 14:52> Referrals: [facility] [Provider Group] Denis Diehl MD [Primary Care Provider] - <MARKELL Santiago - Last Filed: 09/12/22 14:52>
[2022-09-12 16:29] LABS: MANUAL DIFF FLAG NO
[2022-09-12 16:33] LABS: Basophils Absolute Auto 0.1 X10*3/uL (0.0-0.2); Basophils Percent Auto 0.6 % (0-2); Eosinophils Absolute Auto 0.3 X10*3/uL (0.0-0.4); Eosinophils Percent Auto 2.3 % (0-4); Hematocrit 44.3 % (42.0-52.0); Hemoglobin 14.9 g/dl (14.0-18.0); Imm Gran Abs Auto 0.13 X10*3/uL (0.00-0.03); Imm Gran Pct Auto 0.9 % (0.0-0.4); Lymphocytes Absolute Auto 1.9 X10*3/uL (1.2-4.9); Lymphocytes Percent Auto 13.6 % (20-40); Mean Corpuscular HGB Conc 33.6 g/dl (31.0-36.0); Mean Corpuscular Hemoglobin 29.2 pg (27.0-33.0); Mean Corpuscular Volume 86.9 fL (80.0-98.0); Mean Platelet Volume 8.3 fL (9.4-12.4); Monocytes Absolute Auto 1.2 X10*3/uL (0.1-1.2); Monocytes Percent Auto 8.8 % (2-11); Neutrophils Absolute Auto 10.5 x10*3/uL (2.0-8.3); Neutrophils Percent Auto 73.8 % (45-73); Platelet Count 335 X10*3/uL (160-400); Red Cell Distribution Width 14.1 % (11.0-16.0); White Blood Count 14.2 X10*3/uL (4.8-10.8)
[2022-09-12 16:47] LABS: Lactic Acid 0.8 mmol/L (0.5-2.0)
[2022-09-12 16:50] LABS: Alanine Aminotransferase 14 U/L (0-40); Albumin Level 4.5 g/dL (3.5-5.0); Alkaline Phosphatase 63 U/L (39-117); Anion Gap 17 (12-20); Aspartate Amino Transferase 20 U/L (5-37); Bilirubin Direct 0.3 mg/dL (0.0-0.5); Bilirubin Total 0.7 mg/dL (0.0-1.0); Blood Urea Nitrogen 14 mg/dL (9-16); C Reactive Protein 7.65 mg/dL (< or = 0.50); Calcium 9.6 mg/dL (8.4-10.2); Carbon Dioxide 31 mmol/L (22-29); Chloride 95 mmol/L (96-108); Estimated Glomerular Filt Rate > 60; Glucose Random 121 mg/dL (60-115); Magnesium 1.9 mg/dL (1.6-2.6); Potassium 3.6 mmol/L (3.3-5.1); Sodium 139 mmol/L (135-145); Total Protein 7.3 g/dL (6.5-8.0)
[2022-09-12 17:22] LABS: Erythrocyte Sedimentation Rate 49 MM/HR (0-15)
[2022-09-12] MEDS: Doxycycline Monohydrate 100 MG CAPSULE PO (18:17)
[2022-09-12] MEDS: cephALEXin 500 MG CAPSULE PO (18:17)
== END 2022-09-12 18:27 | disposition home or self-care (01) ==
PROVIDERS: Physician Assistant; Emergency Provider Emergency Medicine; PCP Family Medicine
DX: M70.32 Other bursitis of elbow, left elbow (principal); L03.114 Cellulitis of left upper limb; Z79.899 Other long term (current) drug therapy
CPT/HCPCS: 36415; 73080; 80048; 80076; 83605; 83735; 85025; 85652; 86140; 87040; 99282; 99283

== ENCOUNTER 2022-09-19 09:34 | Outpatient (REF) | payer MEDICARE, SELFPAY ==
--- NOTE | ~2022-09-19 | US_ITS ---
EXAMINATION: US EXTRACRANIAL CAROTID DUPLEX, BILATERAL CLINICAL INFORMATION: Occlusion and stenosis of bilateral carotid arteries. COMPARISON: 08/04/2021. TECHNIQUE: Real-time ultrasound and Doppler techniques (integrating B-mode 2-D vascular images, Doppler spectral analysis and color-flow Doppler imaging) were utilized to interrogate the extracranial carotid arteries, the vertebral arteries and proximal subclavian arteries bilaterally. The degree of stenosis is determined by criteria similar to NASCET. FINDINGS: Right Side: 1. There is mild atherosclerotic plaque seen in the bifurcation/proximal ICA region. 2. The common carotid artery PSV proximally is 126 cm/s and distally 101 cm/s. 3. The proximal internal carotid artery velocities are 79 cm/s systolic and 12 cm/s diastolic. 4. The proximal external carotid artery PSV is 138 cm/s. 5. The vertebral artery is not visible. 6. The subclavian artery waveforms are normal. Left Side: 1. There is mild atherosclerotic plaque seen in the bifurcation/proximal ICA region. 2. The common carotid artery PSV proximally is 108 cm/s and distally 98 cm/s. 3. The proximal internal carotid artery velocities are 80 cm/s systolic and 18 cm/s diastolic. 4. The proximal external carotid artery PSV is 129 cm/s. 5. The vertebral artery is not visible. 6. The subclavian artery waveforms are normal. US/US carotid duplex BI IMPRESSION: 1. RIGHT: Minimal, non-hemodynamically significant stenosis of the proximal right internal carotid artery corresponding to a 0-49% stenosis by velocity criteria. 2. LEFT: Minimal, non-hemodynamically significant stenosis of the proximal left internal carotid artery corresponding to a 0-49% stenosis by velocity criteria. 3. There is no change in the category severity of disease when compared to the previous study dated 08/04/2021. 4. Neither vertebral artery could be visualized which is likely technical. The proximal vertebral arteries can be seen on the 08/14/2022 CT scan. 5. Irregular cardiac rhythm.
== END 2022-09-19 09:35 | disposition home or self-care (01) ==
LOC: HO.US 09:34
PROVIDERS: PCP Family Medicine; Visit Provider Surgery Vascular Surgery
DX: I65.23 Occlusion and stenosis of bilateral carotid arteries (principal)
CPT/HCPCS: 93880

== ENCOUNTER 2022-09-22 05:59 | Outpatient (REF) | payer MEDICARE, SELFPAY ==
[2022-09-22 06:14] LABS: MANUAL DIFF FLAG NO
[2022-09-22 07:54] LABS: Urine Cytology See Pathology rpt
[2022-09-22 08:12] LABS: Basophils Absolute Auto 0.1 X10*3/uL (0.0-0.2); Basophils Percent Auto 0.7 % (0-2); Eosinophils Absolute Auto 0.4 X10*3/uL (0.0-0.4); Eosinophils Percent Auto 3.6 % (0-4); Hematocrit 43.1 % (42.0-52.0); Imm Gran Abs Auto 0.08 X10*3/uL (0.00-0.03); Imm Gran Pct Auto 0.8 % (0.0-0.4); Lymphocytes Absolute Auto 2.4 X10*3/uL (1.2-4.9); Mean Corpuscular HGB Conc 32.5 g/dl (31.0-36.0); Mean Corpuscular Hemoglobin 29.3 pg (27.0-33.0); Mean Corpuscular Volume 90.2 fL (80.0-98.0); Mean Platelet Volume 8.7 fL (9.4-12.4); Monocytes Absolute Auto 0.7 X10*3/uL (0.1-1.2); Monocytes Percent Auto 7.3 % (2-11); Neutrophils Absolute Auto 6.3 x10*3/uL (2.0-8.3); Neutrophils Percent Auto 63.6 % (45-73); Platelet Count 327 X10*3/uL (160-400); Red Blood Count 4.78 X10*6/uL (4.60-5.80); Red Cell Distribution Width 14.3 % (11.0-16.0)
[2022-09-22 08:14] LABS: Appearance Urine Clear; Color Urine Yellow; Glucose Urine UA Negative (Negative); Leukocyte Esterase Urine Trace (Negative); Nitrite Urine Negative (Negative); PH 6.5 (5.0-9.0); Specific Gravity - Urine >= 1.030 (1.005-1.025); UMIC TRIGGER UA YES; Urine Blood Negative (Negative); Urine Ketones Negative (Negative); Urine Protein 30 (1+) mg/dL (Neg-Trace)
[2022-09-22 08:20] LABS: Bacteria Urine None Seen (None Seen); Hyaline Casts Urine 0-2 /LPF (0-2); RBC Urine 0-2 /HPF (0-2)
[2022-09-22 08:39] LABS: Microalbum/Creatinine Ratio Ur 40.2 ug/mg cr
[2022-09-22 08:43] LABS: Alanine Aminotransferase 17 U/L (0-40); Albumin Level 4.1 g/dL (3.5-5.0); Alkaline Phosphatase 45 U/L (39-117); Anion Gap 13 (12-20); Aspartate Amino Transferase 19 U/L (5-37); Bilirubin Total 0.7 mg/dL (0.0-1.0); Blood Urea Nitrogen 20 mg/dL (9-16); Calcium 9.7 mg/dL (8.4-10.2); Carbon Dioxide 34 mmol/L (22-29); Chloride 96 mmol/L (96-108); Cholesterol 133 mg/dL; Estimated Glomerular Filt Rate > 60; Glucose Fasting 157 mg/dL (60-99); HDL Cholesterol 44 mg/dL; LDL Cholesterol Calculated 57 mg/dl; Sodium 139 mmol/L (135-145); Total Protein 6.6 g/dL (6.5-8.0); Triglycerides 163 mg/dL
[2022-09-22 09:02] LABS: TSH reflex Free T4 2.77 uIU/mL (0.32-4.0)
== END 2022-09-22 06:00 | disposition home or self-care (01) ==
LOC: HO.LAB 05:59
PROVIDERS: Nurse Practitioner Family; PCP Family Medicine; Visit Provider Family Medicine
DX: Z00.00 Encounter for general adult medical examination without abnormal findings (principal); Z12.5 Encounter for screening for malignant neoplasm of prostate; I10 Essential (primary) hypertension; R53.83 Other fatigue; R31.9 Hematuria, unspecified
CPT/HCPCS: 36415; 80053; 80061; 81001; 81003; 82043; 84153; 84443; 85025; 87086; 88112

== ENCOUNTER → 2022-09-28 13:24 | Outpatient (BNVA) | payer MEDICARE, SELFPAY | PROVIDERS: PCP Family Medicine; Visit Provider Physician Assistant | DX: M70.22 Olecranon bursitis, left elbow (principal) | CPT/HCPCS: 99202 ==

== ENCOUNTER → 2022-10-11 10:08 | Outpatient (BNVA) | payer MEDICARE, SELFPAY | PROVIDERS: PCP Family Medicine; Visit Provider Nurse Practitioner Family | DX: G47.33 Obstructive sleep apnea (adult) (pediatric) (principal); Z99.89 Dependence on other enabling machines and devices | CPT/HCPCS: 99212 ==

== ENCOUNTER → 2022-11-16 08:36 | Outpatient (BNVA) | payer MEDICARE, SELFPAY | PROVIDERS: PCP Family Medicine; Visit Provider Nurse Practitioner Family | DX: G47.33 Obstructive sleep apnea (adult) (pediatric) (principal) | CPT/HCPCS: 99212 ==

== ENCOUNTER → 2022-12-07 09:44 | Outpatient (BNVA) | payer MEDICARE, SELFPAY | PROVIDERS: PCP Family Medicine; Visit Provider Surgery Vascular Surgery | DX: I65.23 Occlusion and stenosis of bilateral carotid arteries (principal) | CPT/HCPCS: 99212 ==

== ENCOUNTER → 2023-02-08 12:29 | Outpatient (BNVA) | payer MEDICARE, SELFPAY | PROVIDERS: PCP Family Medicine; Referring Provider Family Medicine; Visit Provider Internal Medicine | DX: I25.10 Atherosclerotic heart disease of native coronary artery without angina pectoris (principal); I45.2 Bifascicular block; I49.8 Other specified cardiac arrhythmias; I10 Essential (primary) hypertension; E11.8 Type 2 diabetes mellitus with unspecified complications; I65.23 Occlusion and stenosis of bilateral carotid arteries; G47.33 Obstructive sleep apnea (adult) (pediatric); J44.9 Chronic obstructive pulmonary disease, unspecified; Z79.82 Long term (current) use of aspirin; Z79.899 Other long term (current) drug therapy; Z79.84 Long term (current) use of oral hypoglycemic drugs; Z99.89 Dependence on other enabling machines and devices | CPT/HCPCS: 99212 ==

== ENCOUNTER 2023-03-19 07:03 | Day surgery (SDC) | payer MEDICARE, SELFPAY ==
--- NOTE | 2023-03-16 12:04 | P.CONAN_ITS ---
HPI - Anesthesia Eval Consult details Narrative: 77yo M for Colonoscopy Stable at routine 6 month cardiac office visit 01/2023 [facility] Active Problems Active Problems: All Active Problems (Updated 12/07/22 @ 11:22 by Darian Del Castillo MD) Olecranon bursitis, left elbow (Acute) Hematuria (Acute) Right thigh pain (Acute) COVID-19 virus infection (Acute) Atrial arrhythmia (Acute) MISTY (obstructive sleep apnea) (Acute) Daytime sleepiness (Acute) Fatigue (Acute) Sleep apnea (Acute) Allergies (Acute) PAD (peripheral artery disease) (Acute) Elevated PSA (Acute) Yeast infection of the skin (Acute) Screening for prostate cancer (Acute) Screening for colon cancer (Acute) Hypertriglyceridemia (Acute) Adult general medical exam (Acute) Ectropion of right eye (Acute) Preoperative clearance (Acute) Type 2 diabetes mellitus with unspecified complications (Acute) MISTY on CPAP (Acute) Bifascicular block (Acute) Atherosclerotic cardiovascular disease (Acute) COPD (chronic obstructive pulmonary disease) (Acute) Diabetes type 2, controlled (Acute) Essential hypertension (Acute) Carotid stenosis, bilateral (Acute) Past Medical History Medical History (Updated 12/07/22 @ 11:22 by Darian Del Castillo MD) Atherosclerotic cardiovascular disease Benign prostatic hyperplasia with urinary obstruction Bifascicular block Carotid stenosis COPD (chronic obstructive pulmonary disease) Diabetes Hypercholesteremia Hypertension MISTY on CPAP Family History Family History Father CVD (cardiovascular disease) Mother No problems noted. Sister Cancer Sister Cancer Surgical History Surgical History (Updated 03/26/23 @ 09:08 by Bridgette Castro [facility]) H/O colonoscopy History of eyelid surgery Hx of cataract Hx of elbow surgery S/P TURP (status post transurethral resection of prostate) (~2019) Status post carotid surgery Social History Social History Housing: House Alcohol intake: current Alcohol intake frequency: holidays/special occasions only Patient Tobacco Use Status: Former Tobacco user Quit Date: 30 years ago e-Cigarette/Vaping Use: Never Used Second Hand Smoke Exposure: No service: No Current occupational status: retired Current occupational exposures/hazards: No Cognitive needs: No Hearing needs: No Vision needs: No Meds Allergies Allergy/AdvReac Type Severity Reaction Status Date / Time SADI Inhibitors Allergy Unknown FACIAL Verified 03/26/23 09:05 [SADI INHIBITORS] SWELLING lisinopril [LISINOPRIL] Allergy Unknown FACIAL Verified 03/26/23 09:05 SWELLING, hives, lip edema oxycodone [From PERCOCET] Allergy Unknown JOINT Verified 03/26/23 09:05 STIFFNESS peanut [PEANUTS] Allergy Unknown SWELLING,TH Verified 03/26/23 09:05 ROAT,HIVES Home Medications Medication Instructions Recorded Confirmed Last Taken Type tamsulosin 0.4 mg capsule 0.4 mg PO BID 07/01/20 03/26/23 03/19/23 History aspirin 81 mg tablet,delayed 81 mg PO DAILY 08/03/20 03/26/23 03/11/23 History release budesonide 160 mcg-glycopyr 9 2 inh inhalation BID 03/23/22 03/26/23 03/19/23 History mcg-formot 4.8 mcg/actuation HFA inhaler (Breztri Aerosphere) albuterol sulfate 90 mcg/actuation 0 mcg inhalation 09/06/22 03/26/23 03/19/23 History aerosol inhaler brinzolamide 1 %-brimonidine 0.2 % 0 drp ophthalmic (eye) 09/06/22 03/26/23 Unknown History eye drops,suspension (Simbrinza) cefadroxil 500 mg capsule 1,000 mg PO BID 10/11/22 03/26/23 Unknown History betamethasone dipropionate 0.05 % 1 appl topical BID PRN 11/16/22 03/26/23 Unknown History topical cream magnesium chloride 64 mg 64 mg PO DAILY 11/16/22 03/26/23 Unknown History (magnesium chloride) tablet,delayed release vitamin E (dl, acetate) 45 mg (100 45 mg PO DAILY 11/16/22 03/26/23 Unknown History unit) capsule clobetasol 0.05 % topical cream 1 appl topical BID 12/07/22 03/26/23 Unknown History desonide 0.05 % topical cream appl topical 12/07/22 03/26/23 Unknown History Exam Exam Date and Time: March 16, 2023 120 Pertinent Lab Results Pertinent Lab Results: Laboratory Tests 09/22/22 09/22/22 06:12 06:12 WBC 10.0 Hgb 14.0 Hct 43.1 Plt Count 327 Sodium 139 Potassium 4.0 Chloride 96 Carbon Dioxide 34 H BUN 20 H Creatinine 0.85 Narrative Narrative: ECHO 08/2022 Conclusions: - The left ventricular systolic function is normal.? The ? calculated ejection fraction is 62% by biplane method. ? - There is mild calcification of the aortic valve. ? - There is mild mitral annular calcification.? ?? EKG 07/2022 Vent. Rate : 096 BPM ? ? Atrial Rate : 096 BPM ?? P-R Int : 142 ms? QRS Dur : 150 ms ? ? QT Int : 406 ms ? ? ? P-R-T Axes : 049 -70 056 degrees ?? QTc Int : 512 ms ? Sinus rhythm with Premature atrial complexes Right bundle branch block Left anterior fascicular block Bifascicular block Abnormal ECG When compared with ECG of 08-AUG-2022 08:20, No significant change was found Assessment and Plan Assessment Anesthesia Assessment: Chart Reviewed
[2023-03-19 07:43] VITALS: BMI 31.9
[2023-03-19 07:58] VITALS: BP 168/72; PULSE 92; RESP 20; TEMP 36.6; O2SAT 93
[2023-03-19 07:59] LABS: Glucose, Whole Blood 167 mg/dL (60-115)
[2023-03-19] MEDS: Lactated Ringers 1,000 ML 50 ML IVCONT (08:13)
--- NOTE | 2023-03-19 09:51 | P.BOP_ITS ---
Brief Operative Note Date of Service: 03/19/23 Pre-op diagnosis: Screening Post-op diagnosis: other (Colon polyps) Procedure: Colonoscopy to the cecum with hot snare polypectomy x 3 Surgeon: Gary San Anesthesia: MAC Was an Mobile Engineer used for this Procedure?: No Estimated blood loss (mL): 0 Pathology: other (A. Transverse colon polyp B. Polyp at 60cm C. Polyp at 50cm) Condition: stable Disposition: PACU
[2023-03-19 09:52] VITALS: BP 105/62; PULSE 87; RESP 16; TEMP 36.1; O2SAT 94
[2023-03-19 10:07] VITALS: BP 136/73; PULSE 86; RESP 18; TEMP 36.3; O2SAT 93
--- NOTE | 2023-03-19 10:12 | OP_ITS ---
DATE OF SERVICE: 03/19/2023 SURGEON: Gary San MD INDICATIONS: The patient presents for evaluation of colorectal cancer screening and personal history of tubular adenoma of the colon. Full consent has been obtained from him for this, including risks of bleeding and perforation. PREOPERATIVE DIAGNOSIS: Colorectal cancer screening and personal history of tubular adenoma of the colon. POSTOPERATIVE DIAGNOSIS: PROCEDURE PERFORMED: Colonoscopy to the cecum with hot snare polypectomy x 3. ESTIMATED BLOOD LOSS: COMPLICATIONS: ANESTHESIA: Monitored anesthesia care. ASSISTANTS: SPECIMENS: POSTOPERATIVE DIAGNOSES: Colorectal cancer screening and personal history of tubular adenoma of the colon, colon polyps, diverticulosis, and internal hemorrhoids. DESCRIPTION OF PROCEDURE: The patient was placed in the left lateral decubitus position. The digital rectal exam revealed no abnormalities. The Olympus video pediatric colonoscope was entered into the rectum and advanced easily to the cecum. Once in the cecum, I did identify normal-appearing cecal pouch with appendiceal orifice and a normal-appearing ileocecal valve. The entire cecum and ileocecal valve appeared normal. The scope was slowly withdrawn, assessing all mucosal surfaces carefully. Preparation was excellent. In the transverse colon, at 60 cm, and at 50 cm were grossly adenomatous appearing polyps between 8 and 10 mm in diameter. These were each snared and removed with a hot snare polypectomy, and then recovered by suction. The polypectomy sites appeared clean, without any sign of residual polyp nor bleeding. I did not visualize any other polyps, colitis, nor angiodysplasia. There was a mild amount of sigmoid diverticulosis. In the rectum, the scope was retroflexed visualizing internal hemorrhoids, but no other pathology. The rectal mucosa appeared normal. The scope was straightened and withdrawn from the patient. He tolerated the procedure well and was returned to the recovery area in stable condition. IMPRESSION: 1. Colon polyps. 2. Diverticulosis. 3. Internal hemorrhoids. PLAN: Given his age and these relatively minimal findings, I do not think he needs any further screening colonoscopies. He was advised not to use any aspirin or NSAIDs for 1 more week. He will otherwise see me on a p.r.n. basis. MD ALEKS Ward/ARSENIO / [phone] MTDLouis
== END 2023-03-19 10:26 | disposition home or self-care (01) ==
PROVIDERS: PCP Family Medicine; Visit Provider Internal Medicine
PROC: 0DJD8ZZ Inspection of Lower Intestinal Tract, Via Natural or Artificial Opening Endoscopic (ICD-10-PCS; CPT 45378; principal; 2023-03-19 08:30)
DX: Z12.11 Encounter for screening for malignant neoplasm of colon (principal); D12.3 Benign neoplasm of transverse colon; D12.4 Benign neoplasm of descending colon; D12.5 Benign neoplasm of sigmoid colon; K57.30 Diverticulosis of large intestine without perforation or abscess without bleeding; K64.8 Other hemorrhoids; Z86.010 Personal history of colon polyps; E11.9 Type 2 diabetes mellitus without complications; I10 Essential (primary) hypertension; E78.5 Hyperlipidemia, unspecified; J45.909 Unspecified asthma, uncomplicated; G47.33 Obstructive sleep apnea (adult) (pediatric); Z99.89 Dependence on other enabling machines and devices; Z87.891 Personal history of nicotine dependence; Z79.82 Long term (current) use of aspirin; Z79.899 Other long term (current) drug therapy
CPT/HCPCS: 45385; 82947; 88305

== ENCOUNTER 2023-03-26 08:51 | Outpatient (AMB) | payer MEDICARE, SELFPAY ==
--- NOTE | 2023-03-26 09:01 | MHC.PC.OV ---
Vital Signs 03/26/23 09:02 Height 5 ft 8 in Weight 215 lb 4 oz BMI 32.7 BP 122/64 Blood Pressure Location Lt brachial Position Sitting Pulse 85 Pulse Source Pulse Oximeter Pulse Oximetry (%) 95 Oxygen Delivery Method Room Air Intake Visit Reasons: f/u diabetes Intake Note: Patient is here to follow up on diabetes. He would like both of his ears checked for wax. Allergies SADI Inhibitors [SADI INHIBITORS] Allergy (Unknown, Verified 03/26/23 09:05) FACIAL SWELLING lisinopril [LISINOPRIL] Allergy (Unknown, Verified 03/26/23 09:05) FACIAL SWELLING, hives, lip edema oxycodone [From PERCOCET] Allergy (Unknown, Verified 03/26/23 09:05) JOINT STIFFNESS peanut [PEANUTS] Allergy (Unknown, Verified 03/26/23 09:05) SWELLING,THROAT,HIVES Medication List - Last Reconciled 03/26/23 by Denis Diehl MD albuterol sulfate 90 mcg/actuation 0 mcg inhalation amlodipine 10 mg PO DAILY aspirin 81 mg PO DAILY betamethasone dipropionate 0.05% 1 appl topical BID PRN blood sugar diagnostic USE DIRECTED DAILY brinzolamide-brimonidine 1-0.2 % (Simbrinza) 0 drps ophthalmic (eye) glsyaprukg-cimchoiy-ebwgkmmlvw 160-9-4.8 mcg/actuation (Breztri Aerosphere) 2 inhalations inhalation BID cefadroxil 1,000 mg PO BID chlorthalidone 50 mg PO QAM 90 days clobetasol 0.05% 1 appl topical BID desonide 0.05% appl topical desoximetasone 0.25% 1 appl topical BID PRN 30 days epinephrine 0.3 mg (0.3 mL) IM Q20M PRN hydralazine 50 mg PO TID 90 days magnesium chloride 64 mg PO DAILY metformin 1,000 mg PO BID 90 days rosuvastatin 10 mg PO BEDTIME 90 days tamsulosin 0.4 mg PO BID vitamin E (dl, acetate) 45 mg PO DAILY Tobacco use date assessed: 03/26/23 Fall risk assessment: No Falls in past year Last assessed Fall Risk: 03/26/23 Dental Screening Dental Screen Date: 03/26/23 Did you have a dental visit in the last 12 months?: Yes Did you have a dental problem in the last 6 months where you did not have access to dental care?: No Was dental information given to patient?: No HPI f/u diabetes HPI Details 77 y/o male presents to f/u diabetes. Last A1c 6.3%. A1c today 03/26/23 is 6.2%. He is on metformin 1000mg b.i.d. He continues to watch the sugars and starches in his diet. He does report morning blood sugars in the 150-170s. He keeps himself active at work. [facility] Medical History (Updated 12/07/22 @ 11:22 by Darian Del Castillo MD) Atherosclerotic cardiovascular disease Benign prostatic hyperplasia with urinary obstruction Bifascicular block Carotid stenosis COPD (chronic obstructive pulmonary disease) Diabetes Hypercholesteremia Hypertension MISTY on CPAP Surgical History (Updated 03/26/23 @ 09:08 by Bridgette Castro [facility]) H/O colonoscopy History of eyelid surgery Hx of cataract Hx of elbow surgery S/P TURP (status post transurethral resection of prostate) (~2019) Status post carotid surgery Family History Father CVD (cardiovascular disease) Mother No problems noted. Sister Cancer Sister Cancer Social History Housing: House Alcohol intake: current Alcohol intake frequency: holidays/special occasions only Patient Tobacco Use Status: Former Tobacco user Quit Date: 30 years ago e-Cigarette/Vaping Use: Never Used Second Hand Smoke Exposure: No service: No Current occupational status: retired Current occupational exposures/hazards: No Cognitive needs: No Hearing needs: No Vision needs: No Questionnaire Thrive Questionnaire Date Thrive assessed: 09/21/22 RUDY-7 AMB Questionnaire RUDY-7 Date RUDY - 7 assessed: 09/21/22 Source: Developed by Drs. Gary Damian, Elo Najera, Martin Ambrocio and colleagues, with an educational daina from [employer]. Physical exam (Primary Care) Vital Signs: Last Vital Signs Pulse 85 03/26/23 09:02 BP 122/64 03/26/23 09:02 Pulse Ox 95 03/26/23 09:02 Oxygen Delivery Method Room Air 03/26/23 09:02 BMI result Body Mass Index 32.7 Tobacco/Smoking Status: Tobacco use Status Tobacco use date assessed 03/26/23 03/26/23 09:15 Patient Tobacco Use Status Former Tobacco user 03/26/23 09:05 e-Cigarette/Vaping Use Never Used 03/26/23 09:05 Thrive Assessment: Date of Thrive Assessment Date Thrive assessed 09/21/22 03/26/23 09:05 Results AMB Hemoglobin A1c AMB Hemoglobin A1c 6.2 % Last Edit by Bridgette Castro CMA on 03/26/23 09:21 Results Reviewed Results Reviewed: Laboratory Last Values Hgb A1c (Clinic) 6.2 % (4.0-6.0) H 03/26/23 09:21 Assessment and Plan Assessment & Plan (1) Diabetes type 2, controlled: Code(s): E11.9 - Type 2 diabetes mellitus without complications Qualifiers: Diabetes mellitus usp insulin use: without usp use Plan: A1c 6.2% and steady; was 6.3% at last visit. 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
[2023-03-26 09:02] VITALS: BP 122/64; PULSE 85; O2SAT 95; BMI 32.7
== END 2023-03-26 09:53 | disposition home or self-care (01) ==
PROVIDERS: Visit Provider Family Medicine
DX: E11.9 Type 2 diabetes mellitus without complications (principal)
CPT/HCPCS: 83036; 99213

== ENCOUNTER → 2023-04-04 19:30 | Outpatient (REF) | payer MEDICARE, SELFPAY | LOC: HO.SL 19:30 | PROVIDERS: PCP Family Medicine; Visit Provider Nurse Practitioner Family | DX: G47.33 Obstructive sleep apnea (adult) (pediatric) (principal) | CPT/HCPCS: 95810 ==

== ENCOUNTER → 2023-04-04 22:43 | Outpatient (BNV) | payer MEDICARE, SELFPAY | PROVIDERS: PCP Family Medicine; Visit Provider Psychiatry & Neurology Neurology | DX: G47.33 Obstructive sleep apnea (adult) (pediatric) (principal); G47.61 Periodic limb movement disorder | CPT/HCPCS: 95810 ==

== ENCOUNTER 2023-04-17 14:29 | Inpatient (IN) | payer MEDICARE, SELFPAY ==
--- NOTE | ~2023-04-17 | CT_ITS ---
EXAMINATION: CT ABDOMEN AND PELVIS WITHOUT CONTRAST CLINICAL INFORMATION: Hematuria COMPARISON: None available. TECHNIQUE: Multidetector volumetric imaging was performed from the superior aspect of the liver through the pubic symphysis. Sagittal and coronal reformatted images were obtained on the technologist's workstation. This CT examination was performed using dose optimization techniques as appropriate, variously including the following: *Automated exposure control *Adjustment of mA and/or kV according to patient size (this includes techniques or standardized protocols for targeted exams where dose is matched to indication/reason for exam; i.e. extremities or head) *Use of iterative reconstruction technique DLP: 680 mGy-cm FINDINGS: LUNG BASES: Mild atelectatic changes are seen in left lung base. LIVER, GALLBLADDER, AND BILIARY TREE: The liver is normal in size, shape, and attenuation. No focal hepatic lesion or biliary ductal dilatation is present. The gallbladder is unremarkable with no evidence of radiopaque gallstones, gallbladder wall thickening, or obvious pericholecystic inflammatory changes. PANCREAS: Unremarkable. SPLEEN: Unremarkable. ADRENAL GLANDS: Unremarkable. KIDNEYS AND URETERS: The kidneys are normal in size, shape, and attenuation. No hydronephrosis, hydroureter, or calculi seen. Mild bilateral perinephric stranding. BLADDER: There is distended urinary bladder with hemorrhage and urine level. A Yin's catheter is noted in the bladder. No bladder wall thickening visualized GASTROINTESTINAL TRACT: There is scattered stool, diverticula and gas seen throughout the colon without distention. The small bowel loops are normal caliber. Appendix is not visualized. No inflammatory process seen in the abdomen. No free fluid. ABDOMINAL WALL: Small umbilical hernia containing fat. LYMPH NODES: Normal. VASCULAR: Unremarkable. PELVIC VISCERA: The prostate gland is significantly enlarged extending into the base of bladder. OSSEOUS STRUCTURES: Mild degenerative disc changes with vacuum disc and spondylosis L1-L2, L3-L4, L4-L5 and L5-S1 disc levels. No aggressive lytic or sclerotic process seen. CT/CT abdomen pelvis wo IV con IMPRESSION: Distended urinary bladder with hemorrhage and fluid levels. A balloon inflated Yin's catheter is present in the bladder.. Both kidneys are unremarkable. Moderate to significant prostate enlargement. Fleischner guidelines were followed.
[2023-04-17 14:43] VITALS: BP 153/78; PULSE 95; RESP 20; TEMP 36.5; O2SAT 94; BMI 32.7
--- NOTE | 2023-04-17 14:45 | ED.GENADULT ---
HPI - General Adult General Chief complaint: Urogenital-Male Stated complaint: Blood in urine Time Seen by Provider: 04/17/23 17:58 Source: patient, RN notes reviewed and old records reviewed Mode of arrival: ambulatory Limitations: no limitations History of Present Illness HPI narrative: 77-year-old male presents for evaluation of blood in his urine. patient reports a history of hypertension, diabetes, peripheral artery disease, hyperlipidemia, sleep apnea, asthma he reports that between noon and 1:00 p.m. today he noticed some blood in his urine several hours later he noticed some significant lower abdominal discomfort and has been unable to urinate he reports a history of an enlarged prostate and a few years ago I had a procedure where they rerouted the urethra but did not remove the prostate. He complains of 10/10 lower abdominal pain, denies fevers or chills Related Data Home Medications Medication Instructions Recorded Confirmed tamsulosin 0.4 mg capsule 0.4 mg PO BID 07/01/20 03/26/23 aspirin 81 mg tablet,delayed 81 mg PO DAILY 08/03/20 03/26/23 release budesonide 160 mcg-glycopyr 9 2 inh inhalation BID 03/23/22 03/26/23 mcg-formot 4.8 mcg/actuation HFA inhaler (Breztri Aerosphere) albuterol sulfate 90 mcg/actuation 0 mcg inhalation 09/06/22 03/26/23 aerosol inhaler brinzolamide 1 %-brimonidine 0.2 % 0 drp ophthalmic (eye) 09/06/22 03/26/23 eye drops,suspension (Simbrinza) cefadroxil 500 mg capsule 1,000 mg PO BID 10/11/22 03/26/23 betamethasone dipropionate 0.05 % 1 appl topical BID PRN 11/16/22 03/26/23 topical cream magnesium chloride 64 mg 64 mg PO DAILY 11/16/22 03/26/23 (magnesium chloride) tablet,delayed release vitamin E (dl, acetate) 45 mg (100 45 mg PO DAILY 11/16/22 03/26/23 unit) capsule clobetasol 0.05 % topical cream 1 appl topical BID 12/07/22 03/26/23 desonide 0.05 % topical cream appl topical 12/07/22 03/26/23 Previous Rx's Medication Instructions Recorded epinephrine 0.3 mg/0.3 mL 0.3 mg (0.3 mL) IM Q20M PRN 07/06/20 injection, auto-injector anaphylaxis #2 ea blood sugar diagnostic #50 ea 07/26/20 desoximetasone 0.25 % topical cream 1 appl topical BID PRN skin 09/02/20 irritation 30 days #100 grams chlorthalidone 50 mg tablet 50 mg PO QAM 90 days #90 tabs 05/05/22 metformin 1,000 mg tablet 1,000 mg PO BID 90 days #180 tabs 01/22/23 rosuvastatin 10 mg tablet 10 mg PO BEDTIME 90 days #90 tabs 01/25/23 hydralazine 50 mg tablet 50 mg PO TID 90 days #270 tabs 02/27/23 amlodipine 10 mg tablet 10 mg PO DAILY #30 tabs 04/04/23 Allergies Allergy/AdvReac Type Severity Reaction Status Date / Time SADI Inhibitors Allergy Unknown FACIAL Verified 03/26/23 09:05 [SADI INHIBITORS] SWELLING lisinopril [LISINOPRIL] Allergy Unknown FACIAL Verified 03/26/23 09:05 SWELLING, hives, lip edema oxycodone [From PERCOCET] Allergy Unknown JOINT Verified 03/26/23 09:05 STIFFNESS peanut [PEANUTS] Allergy Unknown SWELLING,TH Verified 03/26/23 09:05 ROAT,HIVES Review of Systems Constitutional: Constitutional: Denies chills and Denies fever(s) Cardiovascular: Cardiovascular: Denies chest pain and Denies dyspnea Respiratory: Respiratory: Denies cough and Denies dyspnea Gastrointestinal: Gastrointestinal: Reports abdominal pain, Denies constipation, Denies diarrhea, Denies nausea and Denies vomiting Genitourinary: Genitourinary: Reports hematuria Comments: unable to urinate [facility] Past Medical History Medical History (Updated 04/17/23 @ 23:43 by Greg Seaman) 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 Sister Cancer Sister Cancer Social History Social History Housing: House Alcohol intake: never Patient Tobacco Use Status: Former Tobacco user Quit Date: 30 years ago Smoked in Last 30 Days: No e-Cigarette/Vaping Use: Never Used Second Hand Smoke Exposure: No Use of substances other than those prescribed or required for medical reasons: No Advance Directives: No Advance Directives Information Provided: Yes service: No Current occupational status: retired Current occupational exposures/hazards: No Cognitive needs: No Hearing needs: No Vision needs: No Physical Exam ED Vital Signs: Vital Signs - 24 hr 04/17/23 14:43 04/17/23 20:36 04/17/23 22:23 Temperature 97.7 F 98.1 F 98.1 F Pulse Rate 95 109 H 107 H Respiratory Rate 20 16 18 Blood Pressure 153/78 H 174/78 H 141/74 H Pulse Oximetry 94 94 94 Oxygen Delivery Method Room Air Room Air Room Air BMI result Body Mass Index 32.7 Const General: healthy appearing, comfortable, no acute distress, alert and awake Nutritional Appearance: well nourished Orientation/consciousness: patient oriented x3 HENMT Head: Yes normocephalic and Yes atraumatic Eyes Eyelids: Yes eyelids normal Conjunctivae: conjunctivae normal Sclerae: sclerae normal Corneas: corneas normal Pupils: Equal, round and reactive pupils present EOM: EOMs intact bilaterally Neck Neck: Yes full ROM Resp Effort & Inspection: normal respiratory effort, able to speak in complete sentences and not labored GI Palpation (GI): Soft to palpation, not firm, Tenderness to palpation present (GI) suprapubicly, Guarding due to palpation present (GI) ( suprapubic) and not rigid Auscultation: normoactive bowel sounds Other: unremarkable external male genitalia. There is a significant lab of bloody urine from the urethral meatus Skin General skin exam: elasticity normal Neuro General: patient oriented x3 Cranial nerves: Yes Equal, round and reactive pupils present and Yes Bilaterally intact EOM present Cognition (Neuro): normal cognition Extrem Other: Moving all extremities well without any obvious deformities Course Course Course Narrative: This is a rapid medical exam: Additional HPI, ROS, PE not included below will be deferred to primary provider. Patient is a 77-year-old male with history of HTN, T2DM, COPD presenting to the emergency department with report of painless hematuria a few hours ago. States he now feels as though he has to urinate but is only able to go small amounts. Denies taking anticoagulants, states he takes daily ASA. Denies abdominal pain, back or flank pain. Denies fevers. Report prior episode of hematuria following a prostate surgery but none since. Plan: UA, labs Medications Administered Discontinued Medications Generic Name Dose Route Start Last Admin Trade Name Freq PRN Reason Stop Dose Admin Lidocaine HCl 10 ml 04/17/23 19:01 04/17/23 20:22 Lidocaine Hcl 2 % Urojet 10 Ml Jel.Pf.Dalton TOPICAL 04/17/23 19:02 10 ml ONCE ONE Administration Lidocaine HCl 10 ml 04/17/23 19:03 04/17/23 20:22 Lidocaine Hcl 2 % Urojet 10 Ml Jel.Pf.Dalton TOPICAL 04/17/23 19:04 10 ml ONCE ONE Administration Morphine Sulfate 6 mg 04/17/23 18:42 04/17/23 18:49 Morphine Sulfate 10 Mg/Ml Cartridge IM 04/17/23 18:43 6 mg ONCE ONE Administration Protocol Ondansetron HCl 4 mg 04/17/23 18:42 04/17/23 18:49 Ondansetron Odt 4 Mg Tab.Rapdis TRANSLINGU 04/17/23 18:43 4 mg ONCE ONE Administration Medical Decision Making Medical Decision Making MDM Narrative: 77-year-old male presents for evaluation of hematuria and urinary retention. Bladder scan only showed 219 cc however the patient was significantly uncomfortable with lower abdominal would guarding and distension. A 3 way catheter was eventually introduced by my attending. 1 L of bright red urine was immediately drained. The patient was then hooked up to continuous bladder irrigation. Her the patient takes a baby aspirin but no anticoagulation daily. will get a CT imaging to evaluate for large masses. Urology will be consulted pending remainder of workup Differential Diagnosis Differential Diagnoses: The differential diagnosis associated with the presentation includes UTI Bladder mass Bladder CA Obstructive uropathy Urinary retention BPH Admission/Observation Consideration of admission/observation: Escalation of care including admission/observation considered Patient will require continue CBI given the amount of hematuria with clots Consult Healthcare Provider Management of the patient was discussed with: Healthcare Recruiter ( Dr. Arnoldo [email or web address], urology who recommends continuing CBI, NPO after midnight and will determine if the patient needs cystoscopy) Lab Data MDM Lab Attestation statement: I reviewed the patient's lab results. no leukocytosis with a white count of 10.7. Patient's hemoglobin is normal at 14.4 and hematocrit just below normal at 41.6. Patient's CO2 is elevated at 32 which could be related to his obstructive sleep apnea, he also has a glucose of 142 which is consistent with his known diagnosis of diabetes, no evidence of DKA 04/17/23 14:56 04/17/23 14:56 Labs: Lab Results 04/17/23 04/17/23 04/17/23 Range/Units 14:56 14:56 14:56 WBC 10.7 (4.8-10.8) X10*3/uL RBC 4.76 (4.60-5.80) X10*6/uL Hgb 14.4 (14.0-18.0) g/dl Hct 41.6 L (42.0-52.0) % MCV 87.4 (80.0-98.0) fL MCH 30.3 (27.0-33.0) pg MCHC 34.6 (31.0-36.0) g/dl RDW 13.9 (11.0-16.0) % Plt Count 273 (160-400) X10*3/uL MPV 8.8 L (9.4-12.4) fL Immature Gran % (Auto) 0.6 H (0.0-0.4) % Neut % (Auto) 65.0 (45-73) % Lymph % (Auto) 20.4 (20-40) % [place] % (Auto) 8.8 (2-11) % Eos % (Auto) 4.4 H (0-4) % Baso % (Auto) 0.8 (0-2) % Lymph # (Auto) 2.2 (1.2-4.9) X10*3/uL [place] # (Auto) 0.9 (0.1-1.2) X10*3/uL Eos # (Auto) 0.5 H (0.0-0.4) X10*3/uL Baso # (Auto) 0.1 (0.0-0.2) X10*3/uL Abs Immat Gran (auto) 0.06 H (0.00-0.03) X10*3/uL Absolute Neuts (auto) 6.9 (2.0-8.3) x10*3/uL Absolute Nucleated RBC 0.000 (0.0-0.012) X10*3/uL Nucleated RBC % (auto) 0.0 (0.0-0.2) /100WBC PT 11.4 (11.1-13.3) SEC INR 0.9 (0.9-1.1) Sodium 140 (135-145) mmol/L Potassium 3.4 (3.3-5.1) mmol/L Chloride 99 (96-108) mmol/L Carbon Dioxide 32 H (22-29) mmol/L Anion Gap 12 (12-20) BUN 15 (9-16) mg/dL Creatinine 0.98 (0.5-1.4) mg/dL Estim Creat Clear Calc 72.6 Estimated GFR > 60 Random Glucose 142 H (60-115) mg/dL Calcium 10.0 (8.4-10.2) mg/dL Total Bilirubin 0.5 (0.0-1.0) mg/dL AST 24 (5-37) U/L ALT 21 (0-40) U/L Alkaline Phosphatase 47 (39-117) U/L Total Protein 7.1 (6.5-8.0) g/dL Albumin 4.4 (3.5-5.0) g/dL Discharge Plan Discharge Clinical Impression: Hematuria Patient Disposition: Admitted As Inpatient Prescriptions: No Action epinephrine 0.3 mg/0.3 mL auto-injector 0.3 mg IM Q20M PRN (Reason: anaphylaxis) Qty: 2 0RF Rx Instructions: for 2 doses (DME) blood sugar diagnostic Strip See Rx Instructions .ROUTE .MEDSUPPLY Qty: 50 2RF Rx Instructions: USE DIRECTED DAILY desoximetasone 0.25 % cream 1 appl topical BID PRN (Reason: skin irritation) 30 Days Qty: 100 3RF chlorthalidone 50 mg tablet 50 mg PO QAM 90 Days Qty: 90 3RF metformin 1,000 mg tablet 1,000 mg PO BID 90 Days Qty: 180 3RF rosuvastatin 10 mg tablet 10 mg PO BEDTIME 90 Days Qty: 90 3RF hydralazine 50 mg tablet 50 mg PO TID 90 Days Qty: 270 3RF amlodipine 10 mg tablet 10 mg PO DAILY Qty: 30 6RF [place] Aerosphere 160-9-4.8 mcg/actuation HFA aerosol inhaler 2 inh inhalation BID tamsulosin 0.4 mg capsule 0.4 mg PO BID aspirin 81 mg tablet,delayed release (DR/EC) 81 mg PO DAILY cefadroxil 500 mg capsule 1,000 mg PO BID vitamin E (dl, acetate) 45 mg (100 unit) capsule 45 mg PO DAILY magnesium chloride 64 mg tablet,delayed release (DR/EC) 64 mg PO DAILY betamethasone dipropionate 0.05 % cream 1 appl topical BID PRN albuterol sulfate 90 mcg/actuation HFA aerosol inhaler 0 mcg inhalation Simbrinza 1-0.2 % drops,suspension 0 drp ophthalmic (eye) clobetasol 0.05 % cream 1 appl topical BID desonide 0.05 % cream topical
[2023-04-17 15:02] LABS: MANUAL DIFF FLAG NO
[2023-04-17 15:09] LABS: Basophils Absolute Auto 0.1 X10*3/uL (0.0-0.2); Basophils Percent Auto 0.8 % (0-2); Eosinophils Absolute Auto 0.5 X10*3/uL (0.0-0.4); Eosinophils Percent Auto 4.4 % (0-4); Hematocrit 41.6 % (42.0-52.0); Hemoglobin 14.4 g/dl (14.0-18.0); INTERNATIONAL NORM RATIO 0.9 (0.9-1.1); Imm Gran Abs Auto 0.06 X10*3/uL (0.00-0.03); Imm Gran Pct Auto 0.6 % (0.0-0.4); Lymphocytes Absolute Auto 2.2 X10*3/uL (1.2-4.9); Lymphocytes Percent Auto 20.4 % (20-40); Mean Corpuscular HGB Conc 34.6 g/dl (31.0-36.0); Mean Corpuscular Hemoglobin 30.3 pg (27.0-33.0); Mean Corpuscular Volume 87.4 fL (80.0-98.0); Mean Platelet Volume 8.8 fL (9.4-12.4); Monocytes Absolute Auto 0.9 X10*3/uL (0.1-1.2); Monocytes Percent Auto 8.8 % (2-11); Neutrophils Absolute Auto 6.9 x10*3/uL (2.0-8.3); Platelet Count 273 X10*3/uL (160-400); Prothrombin Time 11.4 SEC (11.1-13.3); Red Blood Count 4.76 X10*6/uL (4.60-5.80); Red Cell Distribution Width 13.9 % (11.0-16.0); White Blood Count 10.7 X10*3/uL (4.8-10.8)
[2023-04-17 15:19] LABS: Alanine Aminotransferase 21 U/L (0-40); Albumin Level 4.4 g/dL (3.5-5.0); Alkaline Phosphatase 47 U/L (39-117); Anion Gap 12 (12-20); Aspartate Amino Transferase 24 U/L (5-37); Bilirubin Total 0.5 mg/dL (0.0-1.0); Blood Urea Nitrogen 15 mg/dL (9-16); Carbon Dioxide 32 mmol/L (22-29); Chloride 99 mmol/L (96-108); Creatinine Clr Calc Pharmacy 72.6; Estimated Glomerular Filt Rate > 60; Glucose Random 142 mg/dL (60-115); Potassium 3.4 mmol/L (3.3-5.1); Sodium 140 mmol/L (135-145); Total Protein 7.1 g/dL (6.5-8.0)
[2023-04-17] MEDS: Morphine Sulfate 10 MG/ML CARTRIDGE 6 MG IM (18:49)
[2023-04-17] MEDS: Ondansetron ODT 4 MG TAB.RAPDIS TRANSLINGU (18:49)
--- NOTE | 2023-04-17 19:06 | PC.NURSE ---
Attempted x2 to insert 3 way catheter into patient. Catheter inserts easily but urine not coming out. Provider aware and attempted to trouble shoot catheter with this nurse without success. Dr Harrington also attempted to make catheter patent without success. Will get another 3 way catheter and Dr Harrington to attempt to insert.
[2023-04-17] MEDS: Lidocaine HCl 2 % Urojet 10 ML JEL.PF.APP TOPICAL ×2 (20:22)
[2023-04-17 20:36] VITALS: BP 174/78; PULSE 109; RESP 16; TEMP 36.7; O2SAT 94
[2023-04-17 22:23] VITALS: BP 141/74; PULSE 107; RESP 18; TEMP 36.7; O2SAT 94
--- NOTE | 2023-04-17 23:41 | PM.IMHP ---
History of Present Illness Date of Service: 04/17/23 Chief Complaint: Heematuria This is a 77-year-old male with pertinent history of essential hypertension, BPH, mao-qymiend-drlshrmfs diabetes mellitus, COPD not on home oxygen, MISTY on CPAP, peripheral arterial disease who presents to the emergency department for evaluation of hematuria. Patient states this started around 13:00. He started noticing blood in his urine. It was associated with lower abdominal discomfort which comes and goes every 5 minutes. Patient states the last time he had hematuria was in 2019 after TURP. Patient denies fever, chills, nausea, vomiting, chest discomfort, palpitations, shortness of breath, changes in bowel habits. In the emergency department, urology was consulted who requested admission. Imaging with distended urinary bladder with hemorrhage Review of Systems Constitutional: Constitutional: Reports fatigue Cardiovascular: Cardiovascular: Reports no additional cardiovascular complaints Respiratory: Respiratory: Reports no additional respiratory complaints Gastrointestinal: Gastrointestinal: Reports abdominal pain Genitourinary: Genitourinary: Reports hematuria Musculoskeletal: Musculoskeletal: Reports no additional musculoskeletal complaints Endocrine: Endocrine: Reports fatigue [facility] Medical History Atherosclerotic cardiovascular disease Benign prostatic hyperplasia with urinary obstruction Bifascicular block Carotid stenosis COPD (chronic obstructive pulmonary disease) Diabetes Hypercholesteremia Hypertension MISTY on CPAP Family History Father CVD (cardiovascular disease) Mother No problems noted. Sister Cancer Sister Cancer Surgical History H/O colonoscopy History of eyelid surgery Hx of cataract Hx of elbow surgery S/P TURP (status post transurethral resection of prostate) (~2019) Status post carotid surgery Social History Household Members: None Housing: Apartment Do you presently have visiting nurse or other home services: No Alcohol intake: never Patient Tobacco Use Status: Former Tobacco user Quit Date: 30 years ago Smoked in Last 30 Days: No e-Cigarette/Vaping Use: Never Used Second Hand Smoke Exposure: No Use of substances other than those prescribed or required for medical reasons: No Currently Displaying Signs/Symptoms of Drug Intoxication Withdrawal: No Any prior treatment program specific to substance use: No Have you been hit, kicked, punched, or otherwise hurt by someone within the past year? If so, by whom?: No Do you feel safe in your current relationship?: No Current Relationship Is there a partner from a previous relationship who is making you feel unsafe now?: No Are you made to feel afraid or neglected: No Advance Directives: No Advance Directives Information Provided: Yes (HCP Edgardo Bolaños per pt) Do you have thoughts of harming others: None Do you have a plan to hurt others: No Plan Recently lost weight without trying: No How much weight loss: Not applicable Eating poorly because of decreased appetite: No Nutrition screen score: 0 Nutrition Risks: No Nutritional Risk Poor oral hygiene: No service: No Current occupational status: retired Current occupational exposures/hazards: No Cognitive needs: No Hearing needs: No Vision needs: No Meds Allergies Allergy/AdvReac Type Severity Reaction Status Date / Time SADI Inhibitors Allergy Unknown FACIAL Verified 03/26/23 09:05 [SADI INHIBITORS] SWELLING lisinopril [LISINOPRIL] Allergy Unknown FACIAL Verified 03/26/23 09:05 SWELLING, hives, lip edema oxycodone [From PERCOCET] Allergy Unknown JOINT Verified 03/26/23 09:05 STIFFNESS peanut [PEANUTS] Allergy Unknown SWELLING,TH Verified 03/26/23 09:05 ROAT,HIVES Home Medications Medication Instructions Recorded Confirmed Last Taken Type tamsulosin 0.4 mg capsule 0.4 mg PO BID 07/01/20 03/26/23 03/19/23 History aspirin 81 mg tablet,delayed 81 mg PO DAILY 08/03/20 03/26/23 03/11/23 History release budesonide 160 mcg-glycopyr 9 2 inh inhalation BID 03/23/22 03/26/23 03/19/23 History mcg-formot 4.8 mcg/actuation HFA inhaler (Breztri Aerosphere) albuterol sulfate 90 mcg/actuation 0 mcg inhalation 09/06/22 03/26/23 03/19/23 History aerosol inhaler brinzolamide 1 %-brimonidine 0.2 % 0 drp ophthalmic (eye) 09/06/22 03/26/23 Unknown History eye drops,suspension (Simbrinza) cefadroxil 500 mg capsule 1,000 mg PO BID 10/11/22 03/26/23 Unknown History betamethasone dipropionate 0.05 % 1 appl topical BID PRN 11/16/22 03/26/23 Unknown History topical cream magnesium chloride 64 mg 64 mg PO DAILY 11/16/22 03/26/23 Unknown History (magnesium chloride) tablet,delayed release vitamin E (dl, acetate) 45 mg (100 45 mg PO DAILY 11/16/22 03/26/23 Unknown History unit) capsule clobetasol 0.05 % topical cream 1 appl topical BID 12/07/22 03/26/23 Unknown History desonide 0.05 % topical cream appl topical 12/07/22 03/26/23 Unknown History Physical Exam Vital Signs and Narrative: Vital Signs: Last Vital Signs Temp 98.1 F 04/17/23 22:23 Pulse 107 H 04/17/23 22:23 Resp 18 04/17/23 22:23 BP 141/74 H 04/17/23 22:23 Pulse Ox 94 04/17/23 22:23 O2 Del Method Room Air 04/17/23 22:23 BMI result Body Mass Index 32.7 Elderly male lying in bed in no distress Neck supple, no JVD Regular rate and rhythm, S1-S2 heard Regular breath sounds bilaterally, no wheezing or crackles appreciated Abdomen soft nontender, no guarding, no rigidity Patient is awake, alert and oriented to self, place, time and person ; no focal motor deficit Psych: Normal mood No pedal edema Results Labs 04/17/23 14:56 04/17/23 14:56 Labs: Laboratory Results - last 24 hr 04/17/23 04/17/23 04/17/23 14:56 14:56 14:56 MCV 87.4 MCH 30.3 MCHC 34.6 RDW 13.9 Plt Count 273 MPV 8.8 L Immature Gran % (Auto) 0.6 H Neut % (Auto) 65.0 Lymph % (Auto) 20.4 [place] % (Auto) 8.8 Eos % (Auto) 4.4 H Baso % (Auto) 0.8 Lymph # (Auto) 2.2 [place] # (Auto) 0.9 Eos # (Auto) 0.5 H Baso # (Auto) 0.1 Abs Immat Gran (auto) 0.06 H Absolute Neuts (auto) 6.9 Absolute Nucleated RBC 0.000 Nucleated RBC % (auto) 0.0 PT 11.4 INR 0.9 Anion Gap 12 Estim Creat Clear Calc 72.6 Estimated GFR > 60 Random Glucose 142 H Calcium 10.0 Total Bilirubin 0.5 AST 24 ALT 21 Alkaline Phosphatase 47 Total Protein 7.1 Albumin 4.4 Imaging Radiologist's Impressions: Impressions Abdomen/Pelvis CT 04/17/23 23:08 IMPRESSION: Distended urinary bladder with hemorrhage and fluid levels. A balloon inflated Yin's catheter is present in the bladder.. Both kidneys are unremarkable. Moderate to significant prostate enlargement. Fleischner guidelines were followed. Assessment and Plan (1) Hematuria: Status: Acute Plan This is a 77-year-old male with pertinent history of essential hypertension, BPH, tbv-eontqqr-pygbhksdf diabetes mellitus, COPD not on home oxygen, MISTY on CPAP, peripheral arterial disease who presents to the emergency department for evaluation of hematuria. #. Hematuria. Will admit patient and continue CBI. Urology was consulted from the ER, appreciate assistance. Will keep patient NPO for possible cystoscopy. Close monitor H&H. IV opioids p.r.n. for pain control. Hold aspirin #. Chf-nzfjkwl-swrwyykhj diabetes mellitus. Initiating Accu-Cheks with sliding scale insulin every 6 hours #. Essential hypertension. Continue home antihypertensives #. BPH. On Flomax #. COPD. No exacerbation during admission. Continue home inhaler #. MISTY. Continue CPAP at bedtime #. Peripheral arterial disease. Continue statin and hold antiplatelet agent in the setting of hematuria Med rec pending DVT prophylaxis: Mechanical Full code Admit as inpatient and will require two night minimum hospital stay for evaluation and treatment of hematuria. Specialist consult pending. Time Spent With Patient Time: Total time managing care of this patient today ____ minutes. Quality Stroke Does the patient have a stroke diagnosis?: No VTE Prior VTE?: No VTE Risk Level:: Medical - moderate - high VTE Device Contraindication: N/A - Device Ordered VTE Drug Contraindication: Treatment Not Indicated
[2023-04-18] VITALS (14 sets, daily range): BP systolic 130–170; BP diastolic 59–87; PULSE 76–106; RESP 13–20; TEMP 36.1–36.7; O2SAT 91–97; BMI 31.9
[2023-04-18 01:02] LABS: Appearance Urine Turbid; Color Urine RED; Glucose Urine UA Negative (Negative); UMIC TRIGGER UACC YES; Urine Blood Large (3+) (Negative); Urine Ketones Negative (Negative); Urine Protein 300 (3+) mg/dL (Neg-Trace)
[2023-04-18 01:05] LABS: Bacteria Urine Trace (None Seen); Hyaline Casts Urine 0-2 /LPF (0-2); Nitrite Urine Negative (Negative); RBC Urine >20 /HPF (0-2); Squamous Epithelial Cell Urine 0-2 /HPF (0-2); UACC Culture Trigger YES; WBC Urine >50 /HPF (0-5)
[2023-04-18 01:06] LABS: Leukocyte Esterase Urine Large (3+) (Negative)
[2023-04-18] MEDS: 0.9 % Sodium Chloride Flush 3 ML SYRINGE IVFLUSH ×3 (01:13→20:03)
[2023-04-18 01:21] LABS: Glucose, Whole Blood 171 mg/dL (60-115)
[2023-04-18] MEDS: 0.9 % Sodium Chloride 1,000 ML 999 ML IV (02:18)
[2023-04-18 05:53] LABS: MANUAL DIFF FLAG NO
[2023-04-18 05:56] LABS: Basophils Absolute Auto 0.1 X10*3/uL (0.0-0.2); Basophils Percent Auto 0.4 % (0-2); Eosinophils Percent Auto 0.3 % (0-4); Hematocrit 36.9 % (42.0-52.0); Hemoglobin 12.2 g/dl (14.0-18.0); Imm Gran Abs Auto 0.09 X10*3/uL (0.00-0.03); Imm Gran Pct Auto 0.6 % (0.0-0.4); Lymphocytes Absolute Auto 1.6 X10*3/uL (1.2-4.9); Lymphocytes Percent Auto 11.3 % (20-40); Mean Corpuscular HGB Conc 33.1 g/dl (31.0-36.0); Mean Corpuscular Hemoglobin 29.8 pg (27.0-33.0); Monocytes Percent Auto 7.2 % (2-11); Neutrophils Absolute Auto 11.4 x10*3/uL (2.0-8.3); Neutrophils Percent Auto 80.2 % (45-73); Platelet Count 249 X10*3/uL (160-400); Red Cell Distribution Width 14.1 % (11.0-16.0); White Blood Count 14.3 X10*3/uL (4.8-10.8)
[2023-04-18 06:12] LABS: Anion Gap 13 (12-20); Blood Urea Nitrogen 16 mg/dL (9-16); Calcium 9.3 mg/dL (8.4-10.2); Carbon Dioxide 33 mmol/L (22-29); Chloride 100 mmol/L (96-108); Creatinine Clr Calc Pharmacy 79.8; Estimated Glomerular Filt Rate > 60; Glucose Random 144 mg/dL (60-115); Potassium 3.7 mmol/L (3.3-5.1); Sodium 142 mmol/L (135-145)
--- NOTE | 2023-04-18 06:28 | PC.NURSE ---
Patient arrived to s3/med-surg @~01:10 (04/18) from ED via stretcher for hemturia. Assumed care at this time. Arrived to unit with 3-way indwelling urinary catheter in place and CBI running, intact and patent of light pink-tinged urine without clots. See I+O's for full details. Pericare provided. A&Ox4. Lungs diminished. Spo2 low to mid 90's on RA. Has hx of copd and MISTY. Pt denies home o2 use but does report HS cpap use. Pt seen by respiratory, refused prn updraft treatment as well as HS cpap for RN and RT when offered. Covering Dr. Madden aware. Breathing is even and unlabored without distress, pt is able to speak in clear sentences without issue and denies sob. Pt given 1L NS bolus 1x per MD for hydration as he is strict npo while awaiting a urology consult later today. Dr. Madden notified of morning WBC elevated, H+H back with slight decrease. Pt is asymptomatic, has +pp/cms, assessment unchanged from initial, and afebrile with VSS. Hx DM. Pt states he checks his blood sugar at home a few times a week and reports he is only on metformin. POC obtained on arrival was 171; ISS held while npo per Dr. Madden. Serum glucose back WNL this am. Patient denies pain and offers no other complaints. Handoff report given to oncoming RN.
[2023-04-18 07:11] LABS: Glucose, Whole Blood 146 mg/dL (60-115)
--- NOTE | 2023-04-18 08:02 | PM.UROCN ---
History of Present Illness Consult details Consult date: 04/18/23 Narrative: 77-year-old male history of hypertension, diabetes, peripheral artery disease, hyperlipidemia, sleep apnea, asthma presented to ED for evaluation of blood in his urine. He states he had a TURP done on his prostate in the past. 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 Sister Cancer Sister Cancer Surgical History Surgical History H/O colonoscopy History of eyelid surgery Hx of cataract Hx of elbow surgery S/P TURP (status post transurethral resection of prostate) (~2019) Status post carotid surgery Social History Social History Household Members: None Housing: Apartment Do you presently have visiting nurse or other home services: No Alcohol intake: never Patient Tobacco Use Status: Former Tobacco user Quit Date: 30 years ago Smoked in Last 30 Days: No e-Cigarette/Vaping Use: Never Used Second Hand Smoke Exposure: No Use of substances other than those prescribed or required for medical reasons: No Currently Displaying Signs/Symptoms of Drug Intoxication Withdrawal: No Any prior treatment program specific to substance use: No Have you been hit, kicked, punched, or otherwise hurt by someone within the past year? If so, by whom?: No Do you feel safe in your current relationship?: No Current Relationship Is there a partner from a previous relationship who is making you feel unsafe now?: No Are you made to feel afraid or neglected: No Advance Directives: No Advance Directives Information Provided: Yes (HCP Edgardo Bolaños per pt) Do you have thoughts of harming others: None Do you have a plan to hurt others: No Plan Recently lost weight without trying: No How much weight loss: Not applicable Eating poorly because of decreased appetite: No Nutrition screen score: 0 Nutrition Risks: No Nutritional Risk Poor oral hygiene: No service: No Current occupational status: retired Current occupational exposures/hazards: No Cognitive needs: No Hearing needs: No Vision needs: No Meds Allergies Allergy/AdvReac Type Severity Reaction Status Date / Time SADI Inhibitors Allergy Unknown FACIAL Verified 03/26/23 09:05 [SADI INHIBITORS] SWELLING lisinopril [LISINOPRIL] Allergy Unknown FACIAL Verified 03/26/23 09:05 SWELLING, hives, lip edema oxycodone [From PERCOCET] Allergy Unknown JOINT Verified 03/26/23 09:05 STIFFNESS peanut [PEANUTS] Allergy Unknown SWELLING,TH Verified 03/26/23 09:05 ROAT,HIVES Active Medications: Current Medications Acetaminophen (Acetaminophen Supp 650 Mg Supp.Rect) 650 mg [place] Q6H PRN PRN Reason: Pain, Mild (Pain Scale 1-3) Albuterol/Ipratropium (Albuterol/Iprat 2.5/0.5mg 3 Ml Ampul.Neb) 3 ml INHALE Q4H PRN PRN Reason: Wheezing Dextrose (Dextrose 50 % 25 Gm/50 Ml Syringe) 25 gm IVPUSH Q15M PRN; Protocol PRN Reason: per Hypoglycemia Standing Ord. Glucose (Glucose Gel 15 Gm Gel..Gram.) 15 gm PO Q15M PRN; Protocol PRN Reason: per Hypoglycemia Standing Ord. Insulin Human Lispro (Insulin Lispro 100 Unit/Ml 3 Ml Vial) 0 unit SUBCUT 0000,0600,1200,1800 [facility]; Protocol Last Admin: 04/18/23 05:49 Dose: Not Given Melatonin (Melatonin 3 Mg Tablet) 6 mg PO BEDTIME PRN PRN Reason: Insomnia Morphine Sulfate (Morphine Sulfate 2 Mg/Ml Cartridge) 2 mg IVPUSH Q4H PRN; Protocol PRN Reason: Pain, Severe (Pain Scale 7-10) Ondansetron HCl (Ondansetron Hcl 4 Mg/2 Ml Vial) 4 mg IVPUSH Q8H PRN PRN Reason: Nausea and Vomiting Sodium Chloride (0.9 % Sodium Chloride Flush 3 Ml Syringe) 3 ml IVFLUSH QSHIFT ALPA Last Admin: 04/18/23 07:32 Dose: 3 ml Home Medications Medication Instructions Recorded Confirmed Last Taken Type tamsulosin 0.4 mg capsule 0.4 mg PO BID 07/01/20 04/18/23 03/19/23 History aspirin 81 mg tablet,delayed 81 mg PO DAILY 08/03/20 04/18/23 03/11/23 History release budesonide 160 mcg-glycopyr 9 2 inh inhalation BID 03/23/22 04/18/23 03/19/23 History mcg-formot 4.8 mcg/actuation HFA inhaler (Breztri Aerosphere) albuterol sulfate 90 mcg/actuation 180 mcg inhalation Q4H PRN Wheezing 09/06/22 04/18/23 03/19/23 History aerosol inhaler Physical Exam Vital Signs: Vital Signs: Last Vital Signs Temp 98 F 04/18/23 06:59 Pulse 77 04/18/23 06:59 Resp 18 04/18/23 06:59 BP 152/70 H 04/18/23 06:59 Pulse Ox 93 04/18/23 06:59 O2 Del Method Room Air 04/18/23 06:59 BMI result Body Mass Index 31.9 Const: General: healthy appearing, no acute distress and well developed Orientation/consciousness: patient oriented x3 HEENT: Head: Yes normocephalic and Yes atraumatic Eyes: Conjunctivae: conjunctivae normal Neck: Neck: Yes normal visual inspection Chest: Chest palpation & inspection: normal inspection of the chest Resp: Effort & Inspection: normal respiratory effort Cardio: Rate: regular rate GI: Inspection: Yes normal to inspection Palpation (GI): Soft to palpation : Other: pedraza in place Penis: normal penis Scrotum: scrotum normal Skin: General skin exam: no rashes or lesions noted Neuro: General: patient oriented x3 Extrem: General: No pedal edema Psych: Appearance: grossly normal Affect: normal affect Results Labs 04/18/23 05:23 04/18/23 05:22 Labs: Abnormal lab results 04/17/23 04/17/23 04/18/23 Range/Units 14:56 14:56 00:15 WBC (4.8-10.8) X10*3/uL RBC (4.60-5.80) X10*6/uL Hgb (14.0-18.0) g/dl Hct 41.6 L (42.0-52.0) % MPV 8.8 L (9.4-12.4) fL Immature Gran % (Auto) 0.6 H (0.0-0.4) % Neut % (Auto) (45-73) % Lymph % (Auto) (20-40) % Eos % (Auto) 4.4 H (0-4) % Eos # (Auto) 0.5 H (0.0-0.4) X10*3/uL Abs Immat Gran (auto) 0.06 H (0.00-0.03) X10*3/uL Absolute Neuts (auto) (2.0-8.3) x10*3/uL Carbon Dioxide 32 H (22-29) mmol/L POC Glucose (60-115) mg/dL Random Glucose 142 H (60-115) mg/dL Urine Protein 300 (3+) H (Neg-Trace) mg/dL Urine Blood Large (3+) H (Negative) Ur Leukocyte Esterase Large (3+) H (Negative) Urine RBC >20 H (0-2) /HPF Urine WBC >50 H (0-5) /HPF 04/18/23 04/18/23 04/18/23 Range/Units 01:16 05:22 05:23 WBC 14.3 H (4.8-10.8) X10*3/uL RBC 4.10 L (4.60-5.80) X10*6/uL Hgb 12.2 L (14.0-18.0) g/dl Hct 36.9 L (42.0-52.0) % MPV 9.0 L (9.4-12.4) fL Immature Gran % (Auto) 0.6 H (0.0-0.4) % Neut % (Auto) 80.2 H (45-73) % Lymph % (Auto) 11.3 L (20-40) % Eos % (Auto) (0-4) % Eos # (Auto) (0.0-0.4) X10*3/uL Abs Immat Gran (auto) 0.09 H (0.00-0.03) X10*3/uL Absolute Neuts (auto) 11.4 H (2.0-8.3) x10*3/uL Carbon Dioxide 33 H (22-29) mmol/L POC Glucose 171 H (60-115) mg/dL Random Glucose 144 H (60-115) mg/dL Urine Protein (Neg-Trace) mg/dL Urine Blood (Negative) Ur Leukocyte Esterase (Negative) Urine RBC (0-2) /HPF Urine WBC (0-5) /HPF 04/18/23 Range/Units 06:59 WBC (4.8-10.8) X10*3/uL RBC (4.60-5.80) X10*6/uL Hgb (14.0-18.0) g/dl Hct (42.0-52.0) % MPV (9.4-12.4) fL Immature Gran % (Auto) (0.0-0.4) % Neut % (Auto) (45-73) % Lymph % (Auto) (20-40) % Eos % (Auto) (0-4) % Eos # (Auto) (0.0-0.4) X10*3/uL Abs Immat Gran (auto) (0.00-0.03) X10*3/uL Absolute Neuts (auto) (2.0-8.3) x10*3/uL Carbon Dioxide (22-29) mmol/L POC Glucose 146 H (60-115) mg/dL Random Glucose (60-115) mg/dL Urine Protein (Neg-Trace) mg/dL Urine Blood (Negative) Ur Leukocyte Esterase (Negative) Urine RBC (0-2) /HPF Urine WBC (0-5) /HPF Short CBC 04/17/23 04/18/23 Range/Units 14:56 05:23 WBC 10.7 14.3 H (4.8-10.8) X10*3/uL Hgb 14.4 12.2 L (14.0-18.0) g/dl Hct 41.6 L 36.9 L (42.0-52.0) % Plt Count 273 249 (160-400) X10*3/uL BMP 04/17/23 04/18/23 14:56 05:22 Sodium 140 142 Potassium 3.4 3.7 Chloride 99 100 Carbon Dioxide 32 H 33 H BUN 15 16 Creatinine 0.98 0.88 Calcium 10.0 9.3 D Liver Function 04/17/23 Range/Units 14:56 Total Bilirubin 0.5 (0.0-1.0) mg/dL AST 24 (5-37) U/L ALT 21 (0-40) U/L Alkaline Phosphatase 47 (39-117) U/L Albumin 4.4 (3.5-5.0) g/dL Urine 04/18/23 Range/Units 00:15 Urine Color RED Urine Appearance Turbid Urine pH 7.0 (5.0-9.0) Ur Specific [place] 1.020 (1.005-1.025) Urine Protein 300 (3+) H (Neg-Trace) mg/dL Urine Glucose (UA) Negative (Negative) mg/dL All other labs normal. Imaging Additional studies: Date of Service: 04/17/23 EXAMINATION: CT ABDOMEN AND PELVIS WITHOUT CONTRAST? CLINICAL INFORMATION: Hematuria? COMPARISON: None available. TECHNIQUE: Multidetector volumetric imaging was performed from the superior aspect of the liver through the pubic symphysis. Sagittal and coronal reformatted images were obtained on the technologist's workstation.? This CT examination was performed using dose optimization techniques as appropriate, variously including the following: *Automated exposure control *Adjustment of mA and/or kV according to patient size (this includes techniques or standardized protocols for targeted exams where dose is matched to indication/reason for exam; i.e. extremities or head) *Use of iterative reconstruction technique DLP: 680 mGy-cm FINDINGS: LUNG BASES: Mild atelectatic changes are seen in left lung base.? LIVER, GALLBLADDER, AND BILIARY TREE: The liver is normal in size, shape, and attenuation. No focal hepatic lesion or biliary ductal dilatation is present. The gallbladder is unremarkable with no evidence of radiopaque gallstones, gallbladder wall thickening, or obvious pericholecystic inflammatory changes.? PANCREAS: Unremarkable.? SPLEEN: Unremarkable.? ADRENAL GLANDS: Unremarkable.? KIDNEYS AND URETERS: The kidneys are normal in size, shape, and attenuation. No hydronephrosis, hydroureter, or calculi seen. Mild bilateral perinephric stranding. ? BLADDER: There is distended urinary bladder with hemorrhage and urine level. A Pedraza's catheter is noted in the bladder. No bladder wall thickening visualized GASTROINTESTINAL TRACT: There is scattered stool, diverticula and gas seen throughout the colon without distention. The small bowel loops are normal caliber. Appendix is not visualized. No inflammatory process seen in the abdomen. No free fluid.? ABDOMINAL WALL: Small umbilical hernia containing fat.? LYMPH NODES: Normal. VASCULAR: Unremarkable. PELVIC VISCERA: The prostate gland is significantly enlarged extending into the base of bladder.? OSSEOUS STRUCTURES: Mild degenerative disc changes with vacuum disc and spondylosis L1-L2, L3-L4, L4-L5 and L5-S1 disc levels. No aggressive lytic or sclerotic process seen.? IMPRESSION: Distended urinary bladder with hemorrhage and fluid levels. A balloon inflated Pedraza's catheter is present in the bladder.. Both kidneys are unremarkable. ? Moderate to significant prostate enlargement. Assessment and Plan (1) Hematuria: Status: Acute (2) BPH (benign prostatic hyperplasia): Status: Acute Plan Irrigated with 1000 mL NS at bedside for significant clots Continue CBI NPO for cysto clot evacuation this evening Time Spent With Patient Time: Total time managing care of this patient today ____ minutes. Procedures Date of Service Date of Service: 04/18/23
--- NOTE | 2023-04-18 08:12 | PHA.MEDREC ---
Pharmacy Consult ? Medication Reconciliation Pharmacy has completed the medication reconciliation. Spoke to patient
--- NOTE | 2023-04-18 09:54 | MHC.CM.PN ---
pt lives alone had no previous services his car is in parking lot dc plan home no servceis
--- NOTE | 2023-04-18 10:10 | HO.PM.IMPN ---
Subjective Subjective Date of Service: 04/18/23 Interval History: Ongoing gross hematuria and CBI Physical Exam Vital Signs: Vital Signs: Last Vital Signs Temp 98 F 04/18/23 06:59 Pulse 77 04/18/23 06:59 Resp 18 04/18/23 06:59 BP 152/70 H 04/18/23 06:59 Pulse Ox 93 04/18/23 06:59 O2 Del Method Room Air 04/18/23 06:59 BMI result Body Mass Index 31.9 General: AO X 3, no acute distress Resp: CTA bilateral, no accessory muscles used CVS: S1,S2,RRR GI: soft, non tender, non distended Neuro: motor grossly intact, alert Psych: appropriate affect, appropriate insight gross hematuria with clots in cbi Objective Data Active Medications Acetaminophen (Acetaminophen Supp 650 Mg Supp.Rect) 650 mg [place] Q6H PRN PRN Reason: Pain, Mild (Pain Scale 1-3) Albuterol/Ipratropium (Albuterol/Iprat 2.5/0.5mg 3 Ml Ampul.Neb) 3 ml INHALE Q4H PRN PRN Reason: Wheezing Dextrose (Dextrose 50 % 25 Gm/50 Ml Syringe) 25 gm IVPUSH Q15M PRN; Protocol PRN Reason: per Hypoglycemia Standing Ord. Glucose (Glucose Gel 15 Gm Gel..Gram.) 15 gm PO Q15M PRN; Protocol PRN Reason: per Hypoglycemia Standing Ord. Insulin Human Lispro (Insulin Lispro 100 Unit/Ml 3 Ml Vial) 0 unit SUBCUT 0000,0600,1200,1800 [facility]; Protocol Last Admin: 04/18/23 05:49 Dose: Not Given Documented By: RYLIE Non-Admin Reason: NPO Melatonin (Melatonin 3 Mg Tablet) 6 mg PO BEDTIME PRN PRN Reason: Insomnia Morphine Sulfate (Morphine Sulfate 2 Mg/Ml Cartridge) 2 mg IVPUSH Q4H PRN; Protocol PRN Reason: Pain, Severe (Pain Scale 7-10) Ondansetron HCl (Ondansetron Hcl 4 Mg/2 Ml Vial) 4 mg IVPUSH Q8H PRN PRN Reason: Nausea and Vomiting Sodium Chloride (0.9 % Sodium Chloride Flush 3 Ml Syringe) [facility] Last Admin: 04/18/23 07:32 Dose: 3 ml Documented By: JUANPABLO Blank 04/18/23 05:23 04/18/23 05:22 Labs: Laboratory Results - last 24 hr 04/17/23 04/17/23 04/17/23 14:56 14:56 14:56 MCV 87.4 MCH 30.3 MCHC 34.6 RDW 13.9 Plt Count 273 MPV 8.8 L Immature Gran % (Auto) 0.6 H Neut % (Auto) 65.0 Lymph % (Auto) 20.4 [place] % (Auto) 8.8 Eos % (Auto) 4.4 H Baso % (Auto) 0.8 Lymph # (Auto) 2.2 [place] # (Auto) 0.9 Eos # (Auto) 0.5 H Baso # (Auto) 0.1 Abs Immat Gran (auto) 0.06 H Absolute Neuts (auto) 6.9 Absolute Nucleated RBC 0.000 Nucleated RBC % (auto) 0.0 PT 11.4 INR 0.9 Anion Gap 12 Estim Creat Clear Calc 72.6 Estimated GFR > 60 POC Glucose Random Glucose 142 H Calcium 10.0 Total Bilirubin 0.5 AST 24 ALT 21 Alkaline Phosphatase 47 Total Protein 7.1 Albumin 4.4 Urine Color Urine Appearance Urine pH Ur Specific [place] Urine Protein Urine Glucose (UA) Urine Ketones Urine Blood Urine Nitrite Ur Leukocyte Esterase Urine RBC Urine WBC Ur Squamous Epith Cells Urine Bacteria Hyaline Casts 04/18/23 04/18/23 04/18/23 00:15 01:16 05:22 MCV MCH MCHC RDW Plt Count MPV Immature Gran % (Auto) Neut % (Auto) Lymph % (Auto) [place] % (Auto) Eos % (Auto) Baso % (Auto) Lymph # (Auto) [place] # (Auto) Eos # (Auto) Baso # (Auto) Abs Immat Gran (auto) Absolute Neuts (auto) Absolute Nucleated RBC Nucleated RBC % (auto) PT INR Anion Gap 13 Estim Creat Clear Calc 79.8 Estimated GFR > 60 POC Glucose 171 H Random Glucose 144 H Calcium 9.3 D Total Bilirubin AST ALT Alkaline Phosphatase Total Protein Albumin Urine Color RED Urine Appearance Turbid Urine pH 7.0 Ur Specific [place] 1.020 Urine Protein 300 (3+) H Urine Glucose (UA) Negative Urine Ketones Negative Urine Blood Large (3+) H Urine Nitrite Negative Ur Leukocyte Esterase Large (3+) H Urine RBC >20 H Urine WBC >50 H Ur Squamous Epith Cells 0-2 Urine Bacteria Trace Hyaline Casts 0-2 04/18/23 04/18/23 05:23 06:59 MCV 90.0 MCH 29.8 MCHC 33.1 RDW 14.1 Plt Count 249 MPV 9.0 L Immature Gran % (Auto) 0.6 H Neut % (Auto) 80.2 H Lymph % (Auto) 11.3 L [place] % (Auto) 7.2 Eos % (Auto) 0.3 Baso % (Auto) 0.4 Lymph # (Auto) 1.6 [place] # (Auto) 1.0 Eos # (Auto) 0.0 Baso # (Auto) 0.1 Abs Immat Gran (auto) 0.09 H Absolute Neuts (auto) 11.4 H Absolute Nucleated RBC 0.000 Nucleated RBC % (auto) 0.0 PT INR Anion Gap Estim Creat Clear Calc Estimated GFR POC Glucose 146 H Random Glucose Calcium Total Bilirubin AST ALT Alkaline Phosphatase Total Protein Albumin Urine Color Urine Appearance Urine pH Ur Specific [place] Urine Protein Urine Glucose (UA) Urine Ketones Urine Blood Urine Nitrite Ur Leukocyte Esterase Urine RBC Urine WBC Ur Squamous Epith Cells Urine Bacteria Hyaline Casts Assessment and Plan (1) Hematuria: Status: Acute Plan 77-year-old male with past medical history of hypertension, BPH, diabetes, COPD, MISTY, peripheral arterial disease presented with gross hematuria Gross hematuria Hold aspirin Continue CBI Urology appreciated, plan for cystoscopy today Monitor hemoglobin Diabetes Holding metformin Continue insulin Hypertension Amlodipine, hydralazine BPH Flomax COPD Inhalers as needed MISTY CPAP Peripheral arterial disease Statin, hold aspirin DVT prophylaxis-mechanical due to hematuria Full code reason for continued hospitalization: Hematuria Time Spent With Patient Time: Total time managing care of this patient today ____ minutes. Quality Stroke Does the patient have a stroke diagnosis?: No VTE Prior VTE?: No VTE Risk Level:: Medical - moderate - high VTE Device Contraindication: N/A - Device Ordered VTE Drug Contraindication: Treatment Not Indicated
[2023-04-18] MEDS: Morphine Sulfate 2 MG/ML CARTRIDGE IVPUSH (10:48)
[2023-04-18 11:05] LABS: Glucose, Whole Blood 195 mg/dL (60-115)
--- NOTE | 2023-04-18 14:36 | HO.ANESPROP2 ---
HPI - Anesthesia Eval Consult details Narrative: 77 yo male patient for Cystoscopy, evacuation of hematoma PMFSH Active Problems Active Problems: All Active Problems (Updated 04/18/23 @ 15:30 by Enedelia Green MD) BPH (benign prostatic hyperplasia) (Acute) Hematuria (Acute) Olecranon bursitis, left elbow (Acute) Right thigh pain (Acute) Atrial arrhythmia (Acute) Daytime sleepiness (Acute) Fatigue (Acute) Allergies (Acute) PAD (peripheral artery disease) (Acute) Elevated PSA (Acute) Yeast infection of the skin (Acute) Hypertriglyceridemia (Acute) Ectropion of right eye (Acute) Preoperative clearance (Acute) Type 2 diabetes mellitus with unspecified complications (Acute) MISTY on CPAP (Acute) Bifascicular block (Acute) Atherosclerotic cardiovascular disease (Acute) COPD (chronic obstructive pulmonary disease) (Acute) Diabetes type 2, controlled (Acute) Essential hypertension (Acute) Carotid stenosis, bilateral (Acute)S/p Left CEA. Right carotid 49% stenosis Past Medical History Medical History Atherosclerotic cardiovascular disease Benign prostatic hyperplasia with urinary obstruction Bifascicular block Carotid stenosis COPD (chronic obstructive pulmonary disease) COVID Diabetes Hypercholesteremia Hypertension MISTY on CPAP Family History Family History Father CVD (cardiovascular disease) Mother No problems noted. Sister Cancer Sister Cancer Family history of problems with anesthesia: No Surgical History Surgical History H/O colonoscopy History of eyelid surgery Hx of cataract Hx of elbow surgery S/P TURP (status post transurethral resection of prostate) (~2019) Status post carotid surgery History of Problems with Anesthesia: No Social History Social History Household Members: None Housing: Apartment Do you presently have visiting nurse or other home services: No Alcohol intake: never Patient Tobacco Use Status: Former Tobacco user Quit Date: 30 years ago Smoked in Last 30 Days: No e-Cigarette/Vaping Use: Never Used Second Hand Smoke Exposure: No Use of substances other than those prescribed or required for medical reasons: No Currently Displaying Signs/Symptoms of Drug Intoxication Withdrawal: No Any prior treatment program specific to substance use: No Have you been hit, kicked, punched, or otherwise hurt by someone within the past year? If so, by whom?: No Do you feel safe in your current relationship?: No Current Relationship Is there a partner from a previous relationship who is making you feel unsafe now?: No Are you made to feel afraid or neglected: No Advance Directives: No Advance Directives Information Provided: Yes (HCP Edgardo Bolaños per pt) Do you have thoughts of harming others: None Do you have a plan to hurt others: No Plan Recently lost weight without trying: No How much weight loss: Not applicable Eating poorly because of decreased appetite: No Nutrition screen score: 0 Nutrition Risks: No Nutritional Risk Poor oral hygiene: No service: No Current occupational status: retired Current occupational exposures/hazards: No Cognitive needs: No Hearing needs: No Vision needs: No Meds Allergies Allergy/AdvReac Type Severity Reaction Status Date / Time SADI Inhibitors Allergy Unknown FACIAL Verified 03/26/23 09:05 [SADI INHIBITORS] SWELLING lisinopril [LISINOPRIL] Allergy Unknown FACIAL Verified 03/26/23 09:05 SWELLING, hives, lip edema oxycodone [From PERCOCET] Allergy Unknown JOINT Verified 03/26/23 09:05 STIFFNESS peanut [PEANUTS] Allergy Unknown SWELLING,TH Verified 03/26/23 09:05 ROAT,HIVES Active Medications: Current Medications Acetaminophen (Acetaminophen Supp 650 Mg Supp.Rect) 650 mg [place] Q6H PRN PRN Reason: Pain, Mild (Pain Scale 1-3) Albuterol/Ipratropium (Albuterol/Iprat 2.5/0.5mg 3 Ml Ampul.Neb) 3 ml INHALE Q4H PRN PRN Reason: Wheezing Amlodipine Besylate (Amlodipine Besylate 10 Mg Tablet) 10 mg PO DAILY [facility]; Protocol Atorvastatin Calcium (Atorvastatin Calcium 40 Mg Tablet) 40 mg PO BEDTIME [facility] Dextrose (Dextrose 50 % 25 Gm/50 Ml Syringe) 25 gm IVPUSH Q15M PRN; Protocol PRN Reason: per Hypoglycemia Standing Ord. Glucose (Glucose Gel 15 Gm Gel..Gram.) 15 gm PO Q15M PRN; Protocol PRN Reason: per Hypoglycemia Standing Ord. Hydralazine HCl (Hydralazine Hcl 50 Mg Tablet) 50 mg PO TID [facility]; Protocol Insulin Human Lispro (Insulin Lispro 100 Unit/Ml 3 Ml Vial) 0 unit SUBCUT 0000,0600,1200,1800 [facility]; Protocol Last Admin: 04/18/23 11:26 Dose: Not Given Melatonin (Melatonin 3 Mg Tablet) 6 mg PO BEDTIME PRN PRN Reason: Insomnia Morphine Sulfate (Morphine Sulfate 2 Mg/Ml Cartridge) 2 mg IVPUSH Q4H PRN; Protocol PRN Reason: Pain, Severe (Pain Scale 7-10) Last Admin: 04/18/23 10:48 Dose: 2 mg Ondansetron HCl (Ondansetron Hcl 4 Mg/2 Ml Vial) 4 mg IVPUSH Q8H PRN PRN Reason: Nausea and Vomiting Sodium Chloride (0.9 % Sodium Chloride Flush 3 Ml Syringe) 3 ml IVFLUSH QSHIFT [facility] Last Admin: 04/18/23 07:32 Dose: 3 ml Tamsulosin HCl (Tamsulosin Hcl 0.4 Mg Capsule) 0.4 mg PO BID [facility] Home Medications Medication Instructions Recorded Confirmed Last Taken Type tamsulosin 0.4 mg capsule 0.4 mg PO BID 07/01/20 04/18/23 03/19/23 History aspirin 81 mg tablet,delayed 81 mg PO DAILY 08/03/20 04/18/23 03/11/23 History release budesonide 160 mcg-glycopyr 9 2 inh inhalation BID 03/23/22 04/18/23 03/19/23 History mcg-formot 4.8 mcg/actuation HFA inhaler (Breztri Aerosphere) albuterol sulfate 90 mcg/actuation 180 mcg inhalation Q4H PRN Wheezing 09/06/22 04/18/23 03/19/23 History aerosol inhaler Exam Exam Date and Time: April 18, 2023 1436 Height,Weight and Vital Signs: Height 5 ft 8 in Weight 95.1 kg Last Vital Signs Temp 98 F 04/18/23 06:59 Pulse 77 04/18/23 06:59 Resp 18 04/18/23 06:59 BP 152/70 H 04/18/23 06:59 Pulse Ox 93 04/18/23 06:59 O2 Del Method Room Air 04/18/23 06:59 Pertinent Lab Results Pertinent Lab Results: Laboratory Tests 04/17/23 04/17/23 04/17/23 14:56 14:56 14:56 WBC 10.7 RBC 4.76 Hgb 14.4 Hct 41.6 L MCV 87.4 MCH 30.3 MCHC 34.6 RDW 13.9 Plt Count 273 MPV 8.8 L Immature Gran % (Auto) 0.6 H Neut % (Auto) 65.0 Lymph % (Auto) 20.4 [place] % (Auto) 8.8 Eos % (Auto) 4.4 H Baso % (Auto) 0.8 Lymph # (Auto) 2.2 [place] # (Auto) 0.9 Eos # (Auto) 0.5 H Baso # (Auto) 0.1 Abs Immat Gran (auto) 0.06 H Absolute Neuts (auto) 6.9 Absolute Nucleated RBC 0.000 Nucleated RBC % (auto) 0.0 PT 11.4 INR 0.9 Sodium 140 Potassium 3.4 Chloride 99 Carbon Dioxide 32 H Anion Gap 12 BUN 15 Creatinine 0.98 Estim Creat Clear Calc 72.6 Estimated GFR > 60 POC Glucose Random Glucose 142 H Calcium 10.0 Total Bilirubin 0.5 AST 24 ALT 21 Alkaline Phosphatase 47 Total Protein 7.1 Albumin 4.4 Urine Color Urine Appearance Urine pH Ur Specific [place] Urine Protein Urine Glucose (UA) Urine Ketones Urine Blood Urine Nitrite Ur Leukocyte Esterase Urine RBC Urine WBC Ur Squamous Epith Cells Urine Bacteria Hyaline Casts 04/18/23 04/18/23 04/18/23 00:15 01:16 05:22 WBC RBC Hgb Hct MCV MCH MCHC RDW Plt Count MPV Immature Gran % (Auto) Neut % (Auto) Lymph % (Auto) [place] % (Auto) Eos % (Auto) Baso % (Auto) Lymph # (Auto) [place] # (Auto) Eos # (Auto) Baso # (Auto) Abs Immat Gran (auto) Absolute Neuts (auto) Absolute Nucleated RBC Nucleated RBC % (auto) PT INR Sodium 142 Potassium 3.7 Chloride 100 Carbon Dioxide 33 H Anion Gap 13 BUN 16 Creatinine 0.88 Estim Creat Clear Calc 79.8 Estimated GFR > 60 POC Glucose 171 H Random Glucose 144 H Calcium 9.3 D Total Bilirubin AST ALT Alkaline Phosphatase Total Protein Albumin Urine Color RED Urine Appearance Turbid Urine pH 7.0 Ur Specific [place] 1.020 Urine Protein 300 (3+) H Urine Glucose (UA) Negative Urine Ketones Negative Urine Blood Large (3+) H Urine Nitrite Negative Ur Leukocyte Esterase Large (3+) H Urine RBC >20 H Urine WBC >50 H Ur Squamous Epith Cells 0-2 Urine Bacteria Trace Hyaline Casts 0-2 04/18/23 04/18/23 04/18/23 05:23 06:59 11:02 WBC 14.3 H RBC 4.10 L Hgb 12.2 L Hct 36.9 L MCV 90.0 MCH 29.8 MCHC 33.1 RDW 14.1 Plt Count 249 MPV 9.0 L Immature Gran % (Auto) 0.6 H Neut % (Auto) 80.2 H Lymph % (Auto) 11.3 L [place] % (Auto) 7.2 Eos % (Auto) 0.3 Baso % (Auto) 0.4 Lymph # (Auto) 1.6 [place] # (Auto) 1.0 Eos # (Auto) 0.0 Baso # (Auto) 0.1 Abs Immat Gran (auto) 0.09 H Absolute Neuts (auto) 11.4 H Absolute Nucleated RBC 0.000 Nucleated RBC % (auto) 0.0 PT INR Sodium Potassium Chloride Carbon Dioxide Anion Gap BUN Creatinine Estim Creat Clear Calc Estimated GFR POC Glucose 146 H 195 H Random Glucose Calcium Total Bilirubin AST ALT Alkaline Phosphatase Total Protein Albumin Urine Color Urine Appearance Urine pH Ur Specific [place] Urine Protein Urine Glucose (UA) Urine Ketones Urine Blood Urine Nitrite Ur Leukocyte Esterase Urine RBC Urine WBC Ur Squamous Epith Cells Urine Bacteria Hyaline Casts Airway Mallampati Class: III TM Dist: >3cm Neck ROM: Full Loose/Missing/Broken Teeth: Yes (Some missing. Denies broken or loose teeth) Heart: RRR Lungs: CTAB Assessment and Plan Assessment Anesthesia Assessment: Anesthesia Plan Discussed and Chart Reviewed Final Anesthetic Review Family History of Problems with Anesthesia: No History of Problems with Anesthesia: No NPO: Yes ASA Class: III and Emergency Final Preanesthetic Review: No Changes in Pt Med Stat, Meds/Allgs Chart Reviewed, Consent Obtained/Reviewed and Anes Risks/Benef Reviewed Patient Risk: Intermediate Procedure Risk: Intermediate Anesthetic Plan Anesthetic Plan: GA Disposition: Standard PACU and Inp. Admit - Standard Bed
--- NOTE | 2023-04-18 15:55 | MHC.SHP ---
Pre-Procedural Eval Section A Date of Service: 04/18/23 The patient is an INPATIENT: Yes The History & Physical has been completed within 30 days and I have reviewed it.: Yes Section B Chief Complaint: Hematuria Allergies: Allergies Allergy/AdvReac Type Severity Reaction Status Date / Time SADI Inhibitors Allergy Unknown FACIAL Verified 03/26/23 09:05 [SADI INHIBITORS] SWELLING lisinopril [LISINOPRIL] Allergy Unknown FACIAL Verified 03/26/23 09:05 SWELLING, hives, lip edema oxycodone [From PERCOCET] Allergy Unknown JOINT Verified 03/26/23 09:05 STIFFNESS peanut [PEANUTS] Allergy Unknown SWELLING,TH Verified 03/26/23 09:05 ROAT,HIVES Plan Diagnosis/Plan: Unchanged I have reviewed the history and physical and performed a pertinent physical examination on my patient. No changes have occurred unless specified. Cystoscopy, clot evacuation, fulguration Time Spent With Patient Time: Total time managing care of this patient today ____ minutes.
--- NOTE | 2023-04-18 17:19 | W.PM.OPN ---
Operative Note Operative Note Date of Service: 04/18/23 Narrative: PREOP DIAGNOSIS: GROSS HEMATURIA POSTOP DIAGNOSIS: GROSS HEMATURIA, ENLARGED PROSTATE, FALSE PASSAGE, CYSTITIS PROCEDURE: CYSTOSCOPY EVACUATION BLADDER CLOTS, FULGURATION SURGEON: Rodriguez Landry MD ANESTHESIA: General Indications: Gross Hematuria, persistent clots while on continuous bladder irrigation Details of procedure: The patient was brought into the operating room placed on the OR table in supine position. Antibiotics - Ancef 2 g, gentamicin 160 mg IV. General anesthesia was administered. The patient was repositioned into lithotomy position, prepped and draped in the usual sterile fashion. Time-out was done per protocol. The 24 fr resectoscope was passed under direct visualization. There was a false passage noted in the proximal bulbous urethra right before the prostatic urethra. The prostatic urethra was significantly enlarged with trilobar enlargement. Visualization of the bladder noted several clots. The Semantifyik evacuator was used to irrigate out significant clot. Continuous flow was used with suction through the resectoscope. Findings: there was some oozing of blood in the bladder along the trigone and minimally along the bladder neck, bladder wall changes suggestive of cystitis. The loop working element was used to cauterize the bleeding areas noted in the bladder and along the bladder neck. A [address] catheter with stylet 30 cc balloon was passed without difficulty. CBI was started in the OR with normal saline. The patient was brought out of anesthesia and taken to recovery in stable condition. Complications: None Drains: [address] [place]
[2023-04-18 18:44] LABS: Glucose, Whole Blood 167 mg/dL (60-115)
[2023-04-18] MEDS: Atorvastatin Calcium 40 MG TABLET PO (20:02)
[2023-04-18] MEDS: hydrALAZINE HCl 50 MG TABLET PO (20:02)
[2023-04-18] MEDS: Melatonin 3 MG TABLET 6 MG PO (20:02)
[2023-04-18] MEDS: Tamsulosin HCL 0.4 MG CAPSULE PO (20:02)
[2023-04-18 20:25] LABS: Glucose, Whole Blood 249 mg/dL (60-115)
[2023-04-18] MEDS: Lactated Ringers 1,000 ML 100 ML IVCONT (23:41)
[2023-04-18 23:43] LABS: Glucose, Whole Blood 173 mg/dL (60-115)
[2023-04-18] MEDS: Insulin Lispro 100 UNIT/ML 3 ML VIAL SUBCUT (23:44)
[2023-04-19 04:10] VITALS: BP 148/65; PULSE 70; RESP 17; TEMP 36.8; O2SAT 93
[2023-04-19 05:40] LABS: Hematocrit 27.6 % (42.0-52.0); Hemoglobin 9.3 g/dl (14.0-18.0); Mean Corpuscular HGB Conc 33.7 g/dl (31.0-36.0); Mean Corpuscular Hemoglobin 30.5 pg (27.0-33.0); Mean Corpuscular Volume 90.5 fL (80.0-98.0); Mean Platelet Volume 9.4 fL (9.4-12.4); Platelet Count 221 X10*3/uL (160-400); Red Blood Count 3.05 X10*6/uL (4.60-5.80); Red Cell Distribution Width 14.1 % (11.0-16.0); White Blood Count 13.2 X10*3/uL (4.8-10.8)
[2023-04-19 05:57] LABS: Glucose, Whole Blood 156 mg/dL (60-115)
[2023-04-19] MEDS: Insulin Lispro 100 UNIT/ML 3 ML VIAL SUBCUT (05:58)
[2023-04-19 06:00] LABS: Anion Gap 12 (12-20); Blood Urea Nitrogen 18 mg/dL (9-16); Calcium 8.4 mg/dL (8.4-10.2); Carbon Dioxide 33 mmol/L (22-29); Chloride 97 mmol/L (96-108); Creatinine Clr Calc Pharmacy 79.8; Estimated Glomerular Filt Rate > 60; Glucose Fasting 145 mg/dL (60-99); Potassium 3.5 mmol/L (3.3-5.1); Sodium 138 mmol/L (135-145)
--- NOTE | 2023-04-19 06:45 | PC.RT ---
pt refused to wear cpap last night. this is day 2 pt has refused. therefore the order will be discontinued and will let MD aware
[2023-04-19 07:02] VITALS: BP 147/66; PULSE 78; RESP 18; TEMP 36.6; O2SAT 96
[2023-04-19] MEDS: hydrALAZINE HCl 50 MG TABLET PO (07:27)
[2023-04-19] MEDS: Tamsulosin HCL 0.4 MG CAPSULE PO (07:27)
[2023-04-19] MEDS: amLODIPine Besylate 10 MG TABLET PO (07:27)
[2023-04-19] MEDS: 0.9 % Sodium Chloride Flush 3 ML SYRINGE IVFLUSH (07:27)
--- NOTE | 2023-04-19 08:06 | P.PNIM_ITS ---
Subjective Subjective Date of Service: 04/19/23 Interval History: pain resolved, urine clear yellow Physical Exam Vital Signs: Vital Signs: Last Vital Signs Temp 98 F 04/19/23 07:02 Pulse 78 04/19/23 07:02 Resp 18 04/19/23 07:02 BP 147/66 H 04/19/23 07:02 Pulse Ox 96 04/19/23 07:02 O2 Del Method Nasal Cannula 04/19/23 07:02 O2 Flow Rate 2 04/19/23 07:02 BMI result Body Mass Index 31.9 General: AO X 3, no acute distress Resp: CTA bilateral, no accessory muscles used CVS: S1,S2,RRR GI: soft, non tender, non distended Neuro: motor grossly intact, alert Psych: appropriate affect, appropriate insight Objective Data Active Medications Acetaminophen (Acetaminophen Supp 650 Mg Supp.Rect) 650 mg [place] Q6H PRN PRN Reason: Pain, Mild (Pain Scale 1-3) Acetaminophen (Acetaminophen 325 Mg Tablet) 650 mg PO ONCE PRN PRN Reason: Pain, Mild (Pain Scale 1-3) Albuterol Sulfate (Albuterol Sulfate (0.083%) 2.5 Mg/3 Ml Vial.Neb) 2.5 mg I NHALE ONCE PRN PRN Reason: Wheezing Albuterol/Ipratropium (Albuterol/Iprat 2.5/0.5mg 3 Ml Ampul.Neb) 3 ml INHALE Q4H PRN PRN Reason: Wheezing Amlodipine Besylate (Amlodipine Besylate 10 Mg Tablet) 10 mg PO DAILY [facility]; Protocol Last Admin: 04/19/23 07:27 Dose: 10 mg Documented By: JUANPABLO Atorvastatin Calcium (Atorvastatin Calcium 40 Mg Tablet) 40 mg PO BEDTIME [facility] Last Admin: 04/18/23 20:02 Dose: 40 mg Documented By: JOSIE Dextrose (Dextrose 50 % 25 Gm/50 Ml Syringe) 25 gm IVPUSH Q15M PRN; Protocol PRN Reason: per Hypoglycemia Standing Ord. Fentanyl (Fentanyl Citrate/Pf 100 Mcg/2 Ml Vial) 25 mcg IVPUSH Q5M PRN; Protoc ol PRN Reason: Pain, Moderate(Pain Scale 4-6) Glucose (Glucose Gel 15 Gm Gel..Gram.) 15 gm PO Q15M PRN; Protocol PRN Reason: per Hypoglycemia Standing Ord. Hydralazine HCl (Hydralazine Hcl 50 Mg Tablet) 50 mg PO TID [facility]; Protocol Last Admin: 04/19/23 07:27 Dose: 50 mg Documented By: JUANPABLO Lactated Ringer's (Lr) 1,000 mls @ 100 mls/hr IVCONT .Q10H [facility] Last Admin: 04/18/23 23:41 Dose: 100 mls/hr Documented By: JOSIE Insulin Human Lispro (Insulin Lispro 100 Unit/Ml 3 Ml Vial) 0 unit SUBCUT 0000,0600,1200,1800 [facility]; Protocol Last Admin: 04/19/23 05:58 Dose: 2 unit Documented By: JOSIE Melatonin (Melatonin 3 Mg Tablet) 6 mg PO BEDTIME PRN PRN Reason: Insomnia Last Admin: 04/18/23 20:02 Dose: 6 mg Documented By: JOSIE Morphine Sulfate (Morphine Sulfate 2 Mg/Ml Cartridge) 2 mg IVPUSH Q4H PRN; Protocol PRN Reason: Pain, Severe (Pain Scale 7-10) Last Admin: 04/18/23 10:48 Dose: 2 mg Documented By: RISHI Ondansetron HCl (Ondansetron Hcl 4 Mg/2 Ml Vial) 4 mg IVPUSH Q8H PRN PRN Reason: Nausea and Vomiting Sodium Chloride (0.9 % Sodium Chloride Flush 3 Ml Syringe) 3 ml IVFLUSH QSHIFT [facility] Last Admin: 04/19/23 07:27 Dose: 3 ml Documented By: JUANPABLO Tamsulosin HCl (Tamsulosin Hcl 0.4 Mg Capsule) 0.4 mg PO BID [facility] Last Admin: 04/19/23 07:27 Dose: 0.4 mg Documented By: JUANPABLO Labs 04/19/23 05:09 04/19/23 05:09 Labs: Laboratory Results - last 24 hr 04/18/23 04/18/23 04/18/23 11:02 18:41 20:03 MCV MCH MCHC RDW Plt Count MPV Absolute Nucleated RBC Nucleated RBC % (auto) Anion Gap Estim Creat Clear Calc Estimated GFR POC Glucose 195 H 167 H 249 H Fasting Glucose Calcium 04/18/23 04/19/23 04/19/23 23:21 05:09 05:09 MCV 90.5 MCH 30.5 MCHC 33.7 RDW 14.1 Plt Count 221 MPV 9.4 Absolute Nucleated RBC 0.000 Nucleated RBC % (auto) 0.0 Anion Gap 12 Estim Creat Clear Calc 79.8 Estimated GFR > 60 POC Glucose 173 H Fasting Glucose 145 H Calcium 8.4 D 04/19/23 05:52 MCV MCH MCHC RDW Plt Count MPV Absolute Nucleated RBC Nucleated RBC % (auto) Anion Gap Estim Creat Clear Calc Estimated GFR POC Glucose 156 H Fasting Glucose Calcium Assessment and Plan (1) Hematuria: Status: Acute Plan 77-year-old male with past medical history of hypertension, BPH, diabetes, COPD, MISTY, peripheral arterial disease presented with gross hematuria Gross hematuria complicated by acute blood loss anemia Holding aspirin s/p cystoscopy 04/18, hematuria resolved Monitor hemoglobin Diabetes Holding metformin Continue insulin Hypertension Amlodipine, hydralazine BPH Flomax COPD Inhalers as needed MISTY CPAP Peripheral arterial disease Statin, hold aspirin DVT prophylaxis-mechanical due to hematuria Full code reason for continued hospitalization: monitoring for hematuria Time Spent With Patient Time: Total time managing care of this patient today ____ minutes. Quality Stroke Does the patient have a stroke diagnosis?: No VTE Prior VTE?: No VTE Risk Level:: Medical - moderate - high VTE Device Contraindication: N/A - Device Ordered VTE Drug Contraindication: Treatment Not Indicated
[2023-04-19 11:09] LABS: Glucose, Whole Blood 137 mg/dL (60-115)
--- NOTE | 2023-04-19 11:09 | HO.POSTANES ---
Post Anesthesia Evaluation Post Anesthesia Evaluation Date of Service: 04/19/23 Vital Signs: Vital Signs Temp Pulse Resp BP Pulse Ox O2 Del Method O2 Flow Rate 04/19/23 07:02 98 F 78 18 147/66 H 96 Nasal Cannula 2 04/19/23 04:10 98.2 F 70 17 148/65 H 93 Nasal Cannula 1 04/18/23 23:44 97.6 F 76 17 130/62 95 Nasal Cannula 2 Anesthesia: General Endotracheal-GETA Mental Status: Awake Pain Control: Satisfactory Nausea/Vomiting: None Hydration: Adequate Anesthesia-Related Issues: No Anes. Related Issues
--- NOTE | 2023-04-19 12:01 | PM.DS ---
DS: Providers Provider Date of Service: 04/19/23 Date of admission: 04/17/23 23:39 Primary care physician: Denis Diehl MD Consults: 04/18/23 00:26 Consult to Urology Routine Consulting Provider: Rodriguez Landry Reason for consultation: hematuria DS: Diagnosis Discharge Diagnosis (1) Hematuria: Status: Acute DS: Summary Hospital Course Hospital Course: from initial hpi: 77-year-old male with pertinent history of essential hypertension, BPH, aov-uojimir-susvaqkol diabetes mellitus, COPD not on home oxygen, MISTY on CPAP, peripheral arterial disease who presents to the emergency department for evaluation of hematuria.? Patient states this started around 13:00.? He started noticing blood in his urine.? It was associated with lower abdominal discomfort which comes and goes every 5 minutes.? Patient states the last time he had hematuria was in 2019 after TURP.? Patient denies fever, chills, nausea, vomiting, chest discomfort, palpitations, shortness of breath, changes in bowel habits. In the emergency department, urology was consulted who requested admission.? Imaging with distended urinary bladder with hemorrhage hospital course: Patient was admitted for gross hematuria complicated by acute blood loss anemia. Aspirin was held. Patient did not require transfusion. He had cystoscopy on 04/18 which showed significant inflammation but no suspicious lesion. He will be discharged with Pedraza catheter in place and will follow-up for voiding trial in 1 week. Aspirin will continue to be held for about 1 week. For diabetes was continue on insulin. For hypertension was continue amlodipine hydralazine. For BPH continue Flomax. For COPD remains stable. For MISTY uses CPAP at night. For peripheral arterial disease aspirin has been held, was continued on statin. Time Spent with Patient Time attestation: Total time managing care of this patient today ____ minutes. Discharge coordination time: Greater than 30 minutes Quality: Safe Use of Opioids Does Pt have an Active Cancer Diagnosis on the Problem List?: No Quality: Stroke Does the patient have a stroke diagnosis?: No Physical Exam Vital Signs: Vital Signs: Last Vital Signs Temp 98 F 04/19/23 07:02 Pulse 78 04/19/23 07:02 Resp 18 04/19/23 07:02 BP 147/66 H 04/19/23 07:02 Pulse Ox 96 04/19/23 07:02 O2 Del Method Nasal Cannula 04/19/23 07:02 O2 Flow Rate 2 04/19/23 07:02 BMI result Body Mass Index 31.9 General: AO X 3, no acute distress Resp: CTA bilateral, no accessory muscles used CVS: S1,S2,RRR GI: soft, non tender, non distended Neuro: motor grossly intact, alert Psych: appropriate affect, appropriate insight DS: Data Data Completed and Pending Pending studies at discharge: Pending at discharge 04/18/23 16:46 Surgical [PTH] Routine Labs on day of discharge: Laboratory Results - last 24 hr 04/18/23 04/18/23 04/18/23 18:41 20:03 23:21 WBC RBC Hgb Hct MCV MCH MCHC RDW Plt Count MPV Absolute Nucleated RBC Nucleated RBC % (auto) Sodium Potassium Chloride Carbon Dioxide Anion Gap BUN Creatinine Estim Creat Clear Calc Estimated GFR POC Glucose 167 H 249 H 173 H Fasting Glucose Calcium 04/19/23 04/19/23 04/19/23 05:09 05:09 05:52 WBC 13.2 H RBC 3.05 L D Hgb 9.3 L D Hct 27.6 L D MCV 90.5 MCH 30.5 MCHC 33.7 RDW 14.1 Plt Count 221 MPV 9.4 Absolute Nucleated RBC 0.000 Nucleated RBC % (auto) 0.0 Sodium 138 Potassium 3.5 Chloride 97 Carbon Dioxide 33 H Anion Gap 12 BUN 18 H Creatinine 0.88 Estim Creat Clear Calc 79.8 Estimated GFR > 60 POC Glucose 156 H Fasting Glucose 145 H Calcium 8.4 D 04/19/23 11:04 WBC RBC Hgb Hct MCV MCH MCHC RDW Plt Count MPV Absolute Nucleated RBC Nucleated RBC % (auto) Sodium Potassium Chloride Carbon Dioxide Anion Gap BUN Creatinine Estim Creat Clear Calc Estimated GFR POC Glucose 137 H Fasting Glucose Calcium Discharge Plan Discharge Anticipated Discharge Date/Time: 04/19/23 11:58 Patient Disposition: Home, Self-Care Discharge Diagnosis: hematuria Referrals: Rodriguez Landry MD [Physician] - 1 Week Denis Diehl MD [Primary Care Provider] - 1 Week Discharge Medications: Continued epinephrine 0.3 mg/0.3 mL auto-injector 0.3 mg IM Q20M PRN (Reason: anaphylaxis) Qty: 2 0RF Rx Instructions: for 2 doses (DME) blood sugar diagnostic Strip See Rx Instructions .ROUTE .MEDSUPPLY Qty: 50 2RF Rx Instructions: USE DIRECTED DAILY chlorthalidone 50 mg tablet 50 mg PO QAM 90 Days Qty: 90 3RF metformin 1,000 mg tablet 1,000 mg PO BID 90 Days Qty: 180 3RF rosuvastatin 10 mg tablet 10 mg PO BEDTIME 90 Days Qty: 90 3RF hydralazine 50 mg tablet 50 mg PO TID 90 Days Qty: 270 3RF amlodipine 10 mg tablet 10 mg PO DAILY Qty: 30 6RF Breztri Aerosphere 160-9-4.8 mcg/actuation HFA aerosol inhaler 2 inh inhalation BID tamsulosin 0.4 mg capsule 0.4 mg PO BID albuterol sulfate 90 mcg/actuation HFA aerosol inhaler 180 mcg inhalation Q4H PRN (Reason: Wheezing) Held aspirin 81 mg tablet,delayed release (DR/EC) 81 mg PO DAILY Hold Instructions: Resume on 04/25/23. Discharge Orders: Discharge Order (Routine); Ordered 04/19/23 Ordered By: Indra Antunez Diet: Advance to usual diet Activity on Discharge: As tolerated Stand Alone Forms: Patient Portal Discharge page Care Plan Goals: recovery Health Concerns: hematuria Plan of Treatment: hold asa, use pedraza for 1 week, follow up with urology Assessment: see above
--- NOTE | 2023-04-19 12:51 | MHC.CM.PN ---
IMM 04/18/23 Patient is discharged to home today, self-care. He will self transport home.
== END 2023-04-19 13:43 | disposition home or self-care (01) | DRG 717 ==
LOC: HO.ED 23:43 → HO.EDOVER 23:48 → HO.S3 04-18 00:08
PROVIDERS: Registered Nurse Emergency; Urology; Admitting Provider Student in an Organized Health Care Education/Training Program; Emergency Provider Emergency Medicine Emergency Medical Services; PCP Family Medicine; Visit Provider Internal Medicine
PROC: 0W3R8ZZ Control Bleeding in Genitourinary Tract, Via Natural or Artificial Opening Endoscopic (ICD-10-PCS; principal; 2023-04-18 16:30)
DX: N40.0 Benign prostatic hyperplasia without lower urinary tract symptoms (principal); D62 Acute posthemorrhagic anemia; I25.10 Atherosclerotic heart disease of native coronary artery without angina pectoris; E78.00 Pure hypercholesterolemia, unspecified; I10 Essential (primary) hypertension; J44.9 Chronic obstructive pulmonary disease, unspecified; E11.51 Type 2 diabetes mellitus with diabetic peripheral angiopathy without gangrene; R31.0 Gross hematuria; G47.33 Obstructive sleep apnea (adult) (pediatric); N36.5 Urethral false passage; Z87.891 Personal history of nicotine dependence; Z79.82 Long term (current) use of aspirin; Z79.84 Long term (current) use of oral hypoglycemic drugs; Z79.899 Other long term (current) drug therapy
CPT/HCPCS: 36415; 74176; 80048; 80053; 81001; 81003; 82947; 85025; 85027; 85610; 87086; 88304; 99285; C1758; J0690; J1100; J2270; J2405; J3010

== ENCOUNTER → 2023-04-17 23:39 | Outpatient (BNV) | payer MEDICARE, SELFPAY | PROVIDERS: Admitting Provider Student in an Organized Health Care Education/Training Program; Emergency Provider Emergency Medicine Emergency Medical Services; PCP Family Medicine; Visit Provider Student in an Organized Health Care Education/Training Program | DX: R31.9 Hematuria, unspecified (principal) | CPT/HCPCS: 99222; 99233; 99239 ==

== ENCOUNTER → 2023-04-17 23:39 | Outpatient (BNV) | payer MEDICARE, SELFPAY | PROVIDERS: Admitting Provider Student in an Organized Health Care Education/Training Program; Emergency Provider Emergency Medicine Emergency Medical Services; PCP Family Medicine; Visit Provider Urology | DX: R31.9 Hematuria, unspecified (principal); N40.0 Benign prostatic hyperplasia without lower urinary tract symptoms | CPT/HCPCS: 52001; 99222 ==

== ENCOUNTER 2023-06-11 06:26 | Outpatient (REF) | payer MEDICARE, SELFPAY ==
[2023-06-11 07:48] LABS: Anion Gap 16 (12-20); Blood Urea Nitrogen 16 mg/dL (9-16); Calcium 9.8 mg/dL (8.4-10.2); Carbon Dioxide 29 mmol/L (22-29); Chloride 95 mmol/L (96-108); Estimated Glomerular Filt Rate > 60; Glucose Random 155 mg/dL (60-115); Potassium 3.3 mmol/L (3.3-5.1); Sodium 137 mmol/L (135-145)
== END 2023-06-11 06:27 | disposition home or self-care (01) ==
LOC: HO.LAB 06:26
PROVIDERS: PCP Family Medicine; Visit Provider Family Medicine
DX: Z00.00 Encounter for general adult medical examination without abnormal findings (principal); E11.8 Type 2 diabetes mellitus with unspecified complications
CPT/HCPCS: 36415; 80048

== ENCOUNTER 2023-06-25 08:09 | Outpatient (AMB) | payer MEDICARE, SELFPAY ==
--- NOTE | 2023-06-25 08:14 | MHC.PC.OV ---
Vital Signs 06/25/23 08:15 Height 5 ft 8 in Weight 216 lb 2 oz BMI 32.9 BP 122/64 Blood Pressure Location Lt brachial Respiration 14 Pulse 88 Pulse Source Pulse Oximeter Temp 98.9 F Temp Source Oral Pulse Oximetry (%) 95 Intake Visit Reasons: f/u diabetes Intake Note: Patient reports he is here for a diabetic check up and reports things are going well and he has no concerns. Patient's last A1C was 6.2% on 03/26/23. 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 A1c today 06/25/2023 6.3%. He is on metformin 1000mg b.i.d. Blood pressure today 122/64. He is on amlodipine 10mg, chlorthalidone 50mg and hydralazine 50mg t.i.d. Recent hospitalization for concern for pneumonia and had COPD exacerbation. Pt reports breathing is much improved. Pt has complaints of hearing changes - he does have some wax impaction. [facility] Medical History Atherosclerotic cardiovascular disease Benign prostatic hyperplasia with urinary obstruction Bifascicular block Carotid stenosis COPD (chronic obstructive pulmonary disease) COVID Diabetes Hypercholesteremia Hypertension MISTY on CPAP Surgical History H/O colonoscopy History of eyelid surgery Hx of cataract Hx of elbow surgery S/P TURP (status post transurethral resection of prostate) (~2019) Status post carotid surgery Family History Father CVD (cardiovascular disease) Mother No problems noted. Sister Cancer Sister Cancer Social History Household Members: None Housing: Apartment Do you presently have visiting nurse or other home services: No Alcohol intake: never Patient Tobacco Use Status: Former Tobacco user Quit Date: 30 years ago e-Cigarette/Vaping Use: Never Used Second Hand Smoke Exposure: No service: No Current occupational status: retired Current occupational exposures/hazards: No Cognitive needs: No Hearing needs: No Vision needs: No Questionnaire PHQ-9 Over the last 2 weeks, how often have you been bothered by any of the following problems? 1. Little interest or pleasure in doing things: not at all 2. Feeling down, depressed, or hopeless: not at all 3. Trouble falling or staying asleep, or sleeping too much: not at all 4. Feeling tired or having little energy: not at all 5. Poor appetite or overeating: not at all 6. Feeling bad about yourself - or that you are a failure or have let yourself or your family down: not at all 7. Trouble concentrating on things, such as reading the newspaper or watching television: not at all 8. Moving or speaking so slowly that other people could have noticed. Or the opposite - being so fidgety or restless that you have been moving around a lot more than usual: not at all 9. Thoughts that you would be better off or of hurting yourself in some way: not at all Total score: 0 Depression Screening Interpretation: Negative Depression Screening Done: Yes 31419 - PHQ-9 Billing: Yes Source: Developed by Drs. Gary Damian, Elo Najera, Martin Ambrocio and colleagues, with an educational daina from [employer]. Thrive Questionnaire Date Thrive assessed: 04/18/23 RUDY-7 AMB Questionnaire RUDY-7 Date RUDY - 7 assessed: 09/21/22 Source: Developed by Drs. Gary Damian, Elo Najera, Martin Ambrocio and colleagues, with an educational daina from [employer]. Review of Systems Const Denies chills, Denies fatigue, Denies fever(s), Denies headache(s) and Denies weakness ENT Denies dizziness and Denies headache(s) Card Denies chest pain, Denies lightheadedness, Denies dyspnea and Denies other (Palpitations) Resp Denies cough, Denies dyspnea, Denies wheezing and Denies other ( shortness of breath) Musc Denies numbness and Denies tingling Neuro Denies dizziness, Denies headache(s), Denies numbness, Denies tingling, Denies paresthesias and Denies weakness Psych Denies anxiety and Denies depression Endo Denies fatigue Aller/Immun Denies wheezing Physical exam (Primary Care) Vital Signs: Last Vital Signs Temp 98.9 F 06/25/23 08:15 Pulse 88 06/25/23 08:15 Resp 14 06/25/23 08:15 BP 122/64 06/25/23 08:15 Pulse Ox 95 06/25/23 08:15 BMI result Body Mass Index 32.9 Tobacco/Smoking Status: Tobacco use Status Tobacco use date assessed 03/26/23 06/25/23 08:21 Patient Tobacco Use Status Former Tobacco user 06/25/23 08:21 e-Cigarette/Vaping Use Never Used 06/25/23 08:21 PHQ-9: PHQ-9 Score PHQ-9: Total score 0 06/25/23 08:43 Depression Screening Interpretation: Negative Thrive Assessment: Date of Thrive Assessment Date Thrive assessed 04/18/23 06/25/23 08:21 Const General: no acute distress and well developed Nutritional Appearance: well nourished Orientation/consciousness: patient oriented x3 [facility] Head: Yes normocephalic and Yes atraumatic Eyes General: appearance normal, both eyes and all related structures Pupils: Equal, round and reactive pupils present EOM: EOMs intact bilaterally Resp Other: Distant breath sounds but otherwise clear Effort & Inspection: normal respiratory effort Auscultation: clear to auscultation bilaterally Cardio Rate: regular rate Rhythm: abnormal rhythm and abnormal rhythm Heart sounds: S1 normal heart sound present, S2 normal heart sound present, no gallops, no murmurs and no rubs Neuro General: patient oriented x3 and gait normal Cranial nerves: Yes Equal, round and reactive pupils present Psych Affect: normal affect Results AMB Hemoglobin A1c AMB Hemoglobin A1c 6.3 % Last Edit by Elizabeth Ulrich CMA on 06/25/23 08:53 Assessment and Plan Assessment & Plan (1) Diabetes type 2, controlled: Code(s): E11.9 - Type 2 diabetes mellitus without complications Qualifiers: 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 insulin use: without skilled nursing use Plan: 6.3%?on?metformin?1000?mg?b.i.d..??Good?control.??Goal?is?less?than?7.0% Continue?current?regimen (2) Essential hypertension: Code(s): I10 - Essential (primary) hypertension Plan: Blood?pressure?122/64?which?is?good?control.??Goal?is?less?than?130/80 Continue?current?medication?regimen (3) Hypertriglyceridemia: Code(s): E78.1 - Pure hyperglyceridemia Plan: Has?been?on?rosuvastatin He?switched?to?taking?this?every?other?day?due?to?muscle?aches Check?lipids?with?next?blood?draw (4) COPD (chronic obstructive pulmonary disease): Code(s): J44.9 - Chronic obstructive pulmonary disease, unspecified Plan: Patient?is?breathing?well?and?COPD?seems?well?controlled?with?inhaled?medications?including Breztri Continue?current?medication?regimen (5) Cerumen impaction: Code(s): H61.20 - Impacted cerumen, unspecified ear Plan: Bilateral?dried?wax?impactions Ear?lavage Debrox?drops (6) Atherosclerotic cardiovascular disease: Code(s): I25.10 - Atherosclerotic heart disease of [place] coronary artery without angina pectoris Plan: Stable Follow-up?with cardiology (7) Immunization counseling: Code(s): Z71.85 - Encounter for immunization safety counseling Plan: Patient?has?had?COVID?and?flu?shots. Recommended?RSV?vaccine (8) Mild anemia: Code(s): D64.9 - Anemia, unspecified Plan: Patient?had?had?recent?urinary?tract?infection?with?urinary?blood?and?clot?and?this?is?likely?cause?of?his?anemia This?has?been?controlled. Will?recheck?H&H?with?next?blood?draw Orders: Orders TSH reflex Free T4 Today Z00.00 - Encounter for general adult medical examination without abnormal findings AMB Hemoglobin A1c Today Z13.9 - Encounter for screening, unspecified Comprehensive [place]. Panel Fast Today Z00.00 - Encounter for general adult medical examination without abnormal findings Complete Blood Count Auto Diff Today Z00.00 - Encounter for general adult medical examination without abnormal findings Lipid Panel Today Z00.00 - Encounter for general adult medical examination without abnormal findings Microalbumin, Random (w Creat) Today I10 - Essential (primary) hypertension Prostate Specific Antigen Scr Today Z12.5 - Encounter for screening for malignant neoplasm of prostate UA and rflx microscopic Today Z00.00 - Encounter for general adult medical examination without abnormal findings Coding Level of Care Code Est Pt Level 4 (77712) Diagnoses Diabetes type 2, controlled E11.9 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 insulin use: without precinct police lieutenant use Essential hypertension I10 Hypertriglyceridemia E78.1 Chronic obstructive pulmonary disease, unspecified COPD type J44.9 Cerumen impaction H61.20 Atherosclerotic cardiovascular disease I25.10 Immunization counseling Z71.85 Mild anemia D64.9
[2023-06-25 08:15] VITALS: BP 122/64; PULSE 88; RESP 14; TEMP 37.2; O2SAT 95; BMI 32.9
== END 2023-06-25 09:14 | disposition home or self-care (01) ==
PROVIDERS: PCP Family Medicine; Visit Provider Family Medicine
DX: E11.9 Type 2 diabetes mellitus without complications (principal); J44.9 Chronic obstructive pulmonary disease, unspecified; I10 Essential (primary) hypertension; E78.1 Pure hyperglyceridemia; H61.23 Impacted cerumen, bilateral; I25.10 Atherosclerotic heart disease of native coronary artery without angina pectoris; Z71.85 Encounter for immunization safety counseling; D64.9 Anemia, unspecified
CPT/HCPCS: 83036; 99214

== ENCOUNTER 2023-06-26 10:12 | Outpatient (AMB) | payer MEDICARE, SELFPAY ==
--- NOTE | 2023-06-26 10:16 | A.OFFVIS_ITS ---
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 Pt did not tolerate with BiPAP. He was using CPAP in the past, and he slept much better. Pt reports that he feels better with CPAP [id number]. However, his current CPAP model is for BiPAP and needs to change to CPAP model. CPAP compliance and therapy response report (05/28/23-06/26/23) reviewed. Pt is on CPAP [id number]. Usage days 93 % and average usage was 7 hours and 42 min. The residual AHI was 2.1/hr. [facility] Medical History COVID Benign prostatic hyperplasia with urinary obstruction MISTY on CPAP Bifascicular block Atherosclerotic cardiovascular disease COPD (chronic obstructive pulmonary disease) Carotid stenosis Hypertension Diabetes Hypercholesteremia Surgical History H/O colonoscopy Hx of elbow surgery History of eyelid surgery S/P TURP (status post transurethral resection of prostate) (~2019) Status post carotid surgery Hx of cataract Family History Father CVD (cardiovascular disease) Mother No problems noted. Sister Cancer Sister Cancer Social History (Updated 06/26/23 @ 10:18 by Stacey Hand CMA) Household Members: None Housing: Apartment Do you presently have visiting nurse or other home services: No Alcohol intake: never Patient Tobacco Use Status: Former Tobacco user Quit Date: 30 years ago e-Cigarette/Vaping Use: Never Used Second Hand Smoke Exposure: No Use of substances other than those prescribed or required for medical reasons: No service: No Current occupational status: retired Current occupational exposures/hazards: No Cognitive needs: No Hearing needs: No Vision needs: No Review of Systems Const All systems reviewed & are unremarkable except as noted in HPI and below Physical Exam Vital Signs: Last Vital Signs Pulse 90 06/26/23 10:19 BP 140/64 H 06/26/23 10:19 Pulse Ox 96 06/26/23 10:19 Oxygen Delivery Method Room Air 06/26/23 10:19 Const General: cooperative Nutritional Appearance: obese Orientation/consciousness: patient oriented x3 Resp Effort & Inspection: normal respiratory effort and able to speak in complete sentences Neuro General: patient oriented x3 and gait normal Cranial nerves: Yes CN's II-XII intact bilaterally Cognition (Neuro): normal cognition Psych Appearance: grossly normal Mental Status: mental status grossly normal Speech and movement: Normal speech and movement present Assessment & Plan Assessment & Plan (1) MISTY (obstructive sleep apnea): Code(s): G47.33 - Obstructive sleep apnea (adult) (pediatric) Plan Send new prescription to switch to CPAP at [id number] with no ramp. Changed EPR to 3. Stressed compliance, use CPAP nightly and more than 4 hours. Wt reduction advised. Coding Level of Care Code Est Pt Level 3 (25093) Diagnoses MISTY (obstructive sleep apnea) G47.33
[2023-06-26 10:19] VITALS: BP 140/64; PULSE 90; O2SAT 96
== END 2023-06-26 10:41 | disposition home or self-care (01) ==
PROVIDERS: PCP Family Medicine; Visit Provider Nurse Practitioner Family
DX: G47.33 Obstructive sleep apnea (adult) (pediatric) (principal)
CPT/HCPCS: 99213

== ENCOUNTER → 2023-06-26 10:12 | Outpatient (BNVA) | payer MEDICARE, SELFPAY | PROVIDERS: PCP Family Medicine; Visit Provider Nurse Practitioner Family | DX: G47.33 Obstructive sleep apnea (adult) (pediatric) (principal) | CPT/HCPCS: 99212 ==

== ENCOUNTER 2023-07-31 08:31 | Outpatient (AMB) | payer MEDICARE, SELFPAY ==
--- NOTE | 2023-07-31 09:04 | MHC.OFFVIS ---
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 by: Self / Same As Patient Allergies SADI Inhibitors [SADI INHIBITORS] Allergy (Unknown, Verified 07/31/23 09:07) FACIAL SWELLING lisinopril [LISINOPRIL] Allergy (Unknown, Verified 07/31/23 09:07) FACIAL SWELLING, hives, lip edema oxycodone [From PERCOCET] Allergy (Unknown, Verified 07/31/23 09:07) JOINT STIFFNESS peanut [PEANUTS] Allergy (Unknown, Verified 07/31/23 09:07) SWELLING,THROAT,HIVES Medication List - Last Reconciled 07/31/23 by Hernandez Jennings MD albuterol sulfate 90 mcg/actuation 180 mcg inhalation Q4H PRN amlodipine 10 mg PO DAILY aspirin 81 mg PO DAILY blood sugar diagnostic USE DIRECTED DAILY fpacxqkasy-pcehosuv-quhkylemcm 160-9-4.8 mcg/actuation (Breztri Aerosphere) 2 inhalations inhalation BID chlorthalidone 50 mg PO QAM 90 days epinephrine 0.3 mg (0.3 mL) IM Q20M PRN hydralazine 50 mg PO TID 90 days metformin 1,000 mg PO BID 90 days rosuvastatin 10 mg PO BEDTIME 90 days tamsulosin 0.4 mg PO BID HPI HPI Comments History of Present Illness Details Taqueria returns for follow-up regarding coronary disease. He has multiple cardiovascular risk factors including history of smoking, hypertension, diabetes, dyslipidemia and established coronary as well as peripheral vascular disease. Overall, no specific symptoms of cardiac. Seems that he has had admissions to [facility] for hematuria and went urology workup. In that setting, slight troponin leak but flat. There was no chest pain or EKG evidence of ischemia at that time. [facility] Medical History COVID Benign prostatic hyperplasia with urinary obstruction MISTY on CPAP Bifascicular block Atherosclerotic cardiovascular disease COPD (chronic obstructive pulmonary disease) Carotid stenosis Hypertension Diabetes Hypercholesteremia Surgical History H/O colonoscopy Hx of elbow surgery History of eyelid surgery S/P TURP (status post transurethral resection of prostate) (~2019) Status post carotid surgery Hx of cataract Family History Father CVD (cardiovascular disease) Mother No problems noted. Sister Cancer Sister Cancer Social History Household Members: None Housing: Apartment Do you presently have visiting nurse or other home services: No Alcohol intake: never Comment: pt. is ambulatory, steady on foot. Patient Tobacco Use Status: Former Tobacco user Quit Date: 30 years ago e-Cigarette/Vaping Use: Never Used Second Hand Smoke Exposure: No service: No Current occupational status: retired Current occupational exposures/hazards: No Cognitive needs: No Hearing needs: No Vision needs: No Review of Systems Const All systems reviewed & are unremarkable except as noted in HPI and below Reports as per HPI and Reports no additional complaints Eyes Reports as per HPI and Denies no additional complaints ENT Denies no additional complaints and Reports as per HPI Card Reports as per HPI, Reports no additional complaints, Denies acrocyanosis, Denies chest pain, Denies leg edema, Denies lightheadedness, Denies palpitations and Denies dyspnea Resp Reports as per HPI, Denies no additional complaints and Denies dyspnea GI Reports as per HPI and Denies no additional complaints Reports no additional complaints and Reports as per HPI Musc Reports no additional complaints and Reports as per HPI Skin/Breast Reports system reviewed and no additional complaints, except as documented Neuro Reports no additional complaints and Reports as per HPI Psych Reports no additional complaints and Reports as per HPI Endo Reports no additional complaints, Reports as per HPI and Denies palpitations Barry/Lymph Reports no additional complaints and Reports as per HPI Aller/Immun Reports no additional complaints and Reports as per HPI Physical Exam Vital Signs: Last Vital Signs Pulse 79 07/31/23 09:05 BP 140/80 H 07/31/23 09:05 BMI result Body Mass Index 32.7 Const General: comfortable and no acute distress Orientation/consciousness: patient oriented x3 HEENT Other: Unremarkable Head: Yes normal to inspection Neck Neck: Yes normal visual inspection Chest Chest palpation & inspection: normal inspection of the chest Resp Auscultation: clear to auscultation bilaterally Cardio Palpation: normal PMI Heart sounds: S1 normal heart sound present, S2 normal heart sound present, no gallops, no murmurs and no rubs GI Palpation (GI): Soft to palpation Back/Spine/Pelvis Other: unremarkable Skin General skin exam: no rashes or lesions noted Neuro General: patient oriented x3 Extrem General: Yes normal to inspection Psych Mental Status: mental status grossly normal Office Procedures EKG Details: EKG with sinus rhythm at 79/Min; right bundle-branch block and left anterior fascicular block-bifascicular block pattern. [id number], Complete Assessment & Plan Assessment & Plan (1) Atherosclerotic cardiovascular disease: Code(s): I25.10 - Atherosclerotic heart disease of [place] coronary artery without angina pectoris Plan: Cardiac catheterization in past had revealed minimal irregularities in the left main, LAD, circumflex and moderate nonobstructive disease in the right coronary artery. Continue aspirin and statins. Last LDL 61 mg/dL. Prior values also similar. Could not take beta-blockers due to possible allergic reaction in the past as well as epinephrine use for allergies (used once in the past). Due to recent slight troponin leak in the setting of hematuria, we will recommend a stress test as it has been several years since the last ischemia assessment. (2) Bifascicular block: Code(s): I45.2 - Bifascicular block Plan: Stable. (3) Atrial arrhythmia: Code(s): I49.8 - Other specified cardiac arrhythmias Plan: In the last Holter, he had frequent supraventricular ectopy with a burden of almost 10%. Increased risk of atrial fibrillation the future. (4) Essential hypertension: Code(s): I10 - Essential (primary) hypertension Plan: Borderline blood pressure today but he states these are much lower at home checks and elsewhere. He has allergy to SADI inhibitors in the past due to swelling of lips. Also suspected beta-caitlyn allergy, but symptoms are not very clear. (5) Type 2 diabetes mellitus with unspecified complications: Code(s): E11.8 - Type 2 diabetes mellitus with unspecified complications Plan: On Metformin. (6) Carotid stenosis, bilateral: Comment: 12/02/2015- left carotid endarterectomy Code(s): I65.23 - Occlusion and stenosis of bilateral carotid arteries Plan: Status post left carotid endarterectomy. Last carotid Doppler from August shows no significant disease. (7) MISTY on CPAP: Code(s): G47.33 - Obstructive sleep apnea (adult) (pediatric); Z99.89 - Dependence on other enabling machines and devices Plan: Continue CPAP. Orders: Orders CA stress test Today R07.2 - Precordial pain NM cardiolite stress test Today R07.2 - Precordial pain Coding Level of Care Code Est Pt Level 4 (93815) Diagnoses Atherosclerotic cardiovascular disease I25.10 Bifascicular block I45.2 Atrial arrhythmia I49.8 Essential hypertension I10 Type 2 diabetes mellitus with unspecified complications E11.8 Carotid stenosis, bilateral I65.23 MISTY on CPAP G47.33; Z99.89 CPT Codes EKG - CPT: 29675-[id number], Complete ([id number])
[2023-07-31 09:05] VITALS: BP 140/80; PULSE 79; BMI 32.7
== END 2023-07-31 09:38 | disposition home or self-care (01) ==
PROVIDERS: PCP Family Medicine; Visit Provider Internal Medicine
DX: I25.10 Atherosclerotic heart disease of native coronary artery without angina pectoris (principal); I45.2 Bifascicular block; I49.8 Other specified cardiac arrhythmias; I10 Essential (primary) hypertension; E11.8 Type 2 diabetes mellitus with unspecified complications; I65.23 Occlusion and stenosis of bilateral carotid arteries; G47.33 Obstructive sleep apnea (adult) (pediatric); Z99.89 Dependence on other enabling machines and devices
CPT/HCPCS: 93010; 99214

== ENCOUNTER → 2023-07-31 08:31 | Outpatient (BNVA) | payer MEDICARE, SELFPAY | PROVIDERS: PCP Family Medicine; Visit Provider Internal Medicine | DX: I25.10 Atherosclerotic heart disease of native coronary artery without angina pectoris (principal); I45.2 Bifascicular block; I49.8 Other specified cardiac arrhythmias; I10 Essential (primary) hypertension; I65.23 Occlusion and stenosis of bilateral carotid arteries; E11.8 Type 2 diabetes mellitus with unspecified complications; G47.33 Obstructive sleep apnea (adult) (pediatric); Z99.89 Dependence on other enabling machines and devices | CPT/HCPCS: 93005; 99212 ==

== ENCOUNTER 2023-08-24 08:33 | Outpatient (AMB) | payer MEDICARE, SELFPAY ==
--- NOTE | 2023-08-24 08:47 | MHC.OFFVIS ---
Intake Vital Signs 08/24/23 08:49 Height 5 ft 8 in Weight 215 lb 6 oz BMI 32.7 BP 136/68 Blood Pressure Location Lt brachial Position Sitting Respiration 17 Pulse 87 Pulse Source Pulse Oximeter Pulse Oximetry (%) 93 Oxygen Delivery Method Room Air Intake Visit Reasons: Follow for MISTY Intake Note: Pt pesents for 2 month follow up for MISTY. 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 Pt reports he had a new CPAP, and started at [id number]. He feels a little better, sleeps well, but still feels he does not have enough air when he uses CPAP. Also he wakes up tired. The CPAP compliance and therapy response (07/25/23-08/23/23) reviewed. The usage days 100% and the average usage hours 7 hrs 30 min. The AHI was 8.5/hr, the apnea index was central 2.1 and obstructive 2.9. [facility] Medical History COVID Benign prostatic hyperplasia with urinary obstruction MISTY on CPAP Bifascicular block Atherosclerotic cardiovascular disease COPD (chronic obstructive pulmonary disease) Carotid stenosis Hypertension Diabetes Hypercholesteremia Surgical History H/O colonoscopy Hx of elbow surgery History of eyelid surgery S/P TURP (status post transurethral resection of prostate) (~2019) Status post carotid surgery Hx of cataract Family History Father CVD (cardiovascular disease) Mother No problems noted. Sister Cancer Sister Cancer Social History Household Members: None Housing: Apartment Do you presently have visiting nurse or other home services: No Alcohol intake: never Comment: pt. is ambulatory, steady on foot. Patient Tobacco Use Status: Former Tobacco user Quit Date: 30 years ago e-Cigarette/Vaping Use: Never Used Second Hand Smoke Exposure: No service: No Current occupational status: retired Current occupational exposures/hazards: No Cognitive needs: No Hearing needs: No Vision needs: No Review of Systems Const All systems reviewed & are unremarkable except as noted in HPI and below Physical Exam Vital Signs: Last Vital Signs Pulse 87 08/24/23 08:49 Resp 17 08/24/23 08:49 BP 136/68 08/24/23 08:49 Pulse Ox 93 08/24/23 08:49 Oxygen Delivery Method Room Air 08/24/23 08:49 BMI result Body Mass Index 32.7 Const General: cooperative Nutritional Appearance: obese Orientation/consciousness: patient oriented x3 Resp Effort & Inspection: normal respiratory effort and able to speak in complete sentences Neuro General: patient oriented x3 and gait normal Cranial nerves: Yes CN's II-XII intact bilaterally Cognition (Neuro): normal cognition Psych Appearance: grossly normal Mental Status: mental status grossly normal Speech and movement: Normal speech and movement present Assessment & Plan Assessment & Plan (1) MISTY (obstructive sleep apnea): Code(s): G47.33 - Obstructive sleep apnea (adult) (pediatric) Plan Advised patient to try CPAP at [id number] with no ramp. Changed EPR to 3. Stressed compliance, use CPAP nightly and more than 4 hours. Wt reduction advised. Coding Level of Care Code Est Pt Level 3 (29390) Diagnoses MISTY (obstructive sleep apnea) G47.33
[2023-08-24 08:49] VITALS: BP 136/68; PULSE 87; RESP 17; O2SAT 93; BMI 32.7
== END 2023-08-24 09:01 | disposition home or self-care (01) ==
PROVIDERS: PCP Family Medicine; Visit Provider Nurse Practitioner Family
DX: G47.33 Obstructive sleep apnea (adult) (pediatric) (principal)
CPT/HCPCS: 99213

== ENCOUNTER → 2023-08-24 08:33 | Outpatient (BNVA) | payer MEDICARE, SELFPAY | PROVIDERS: PCP Family Medicine; Visit Provider Nurse Practitioner Family | DX: G47.33 Obstructive sleep apnea (adult) (pediatric) (principal) | CPT/HCPCS: 99212 ==

== ENCOUNTER 2023-09-24 06:01 | Outpatient (REF) | payer MEDICARE, SELFPAY ==
[2023-09-24 06:21] LABS: MANUAL DIFF FLAG NO
[2023-09-24 07:44] LABS: Appearance Urine Clear; Color Urine Yellow; Glucose Urine UA Negative (Negative); Leukocyte Esterase Urine Negative (Negative); Nitrite Urine Negative (Negative); PH 6.5 (5.0-9.0); Specific Gravity - Urine 1.015 (1.005-1.025); Urine Blood Negative (Negative); Urine Ketones Negative (Negative); Urine Protein Negative (Neg-Trace)
[2023-09-24 07:45] LABS: Basophils Absolute Auto 0.1 X10*3/uL (0.0-0.2); Basophils Percent Auto 0.7 % (0-2); Eosinophils Absolute Auto 0.4 X10*3/uL (0.0-0.4); Eosinophils Percent Auto 3.6 % (0-4); Hematocrit 44.7 % (42.0-52.0); Hemoglobin 14.9 g/dl (14.0-18.0); Imm Gran Abs Auto 0.09 X10*3/uL (0.00-0.03); Imm Gran Pct Auto 0.9 % (0.0-0.4); Lymphocytes Absolute Auto 2.3 X10*3/uL (1.2-4.9); Lymphocytes Percent Auto 22.1 % (20-40); Mean Corpuscular HGB Conc 33.3 g/dl (31.0-36.0); Mean Corpuscular Hemoglobin 28.3 pg (27.0-33.0); Mean Corpuscular Volume 84.8 fL (80.0-98.0); Mean Platelet Volume 8.8 fL (9.4-12.4); Monocytes Absolute Auto 0.9 X10*3/uL (0.1-1.2); Monocytes Percent Auto 8.6 % (2-11); Neutrophils Absolute Auto 6.7 x10*3/uL (2.0-8.3); Neutrophils Percent Auto 64.1 % (45-73); Platelet Count 292 X10*3/uL (160-400); Red Blood Count 5.27 X10*6/uL (4.60-5.80); Red Cell Distribution Width 16.3 % (11.0-16.0); White Blood Count 10.4 X10*3/uL (4.8-10.8)
[2023-09-24 08:22] LABS: Creatinine Urine 112.94 mg/dL; Microalbum/Creatinine Ratio Ur 30.9 ug/mg cr (<30)
[2023-09-24 08:26] LABS: Alanine Aminotransferase 25 U/L (0-40); Albumin Level 4.1 g/dL (3.5-5.0); Alkaline Phosphatase 41 U/L (39-117); Anion Gap 13 (12-20); Aspartate Amino Transferase 24 U/L (5-37); Bilirubin Total 0.4 mg/dL (0.0-1.0); Blood Urea Nitrogen 16 mg/dL (9-16); Calcium 9.5 mg/dL (8.4-10.2); Carbon Dioxide 31 mmol/L (22-29); Chloride 96 mmol/L (96-108); Cholesterol 147 mg/dL (<200); Estimated Glomerular Filt Rate > 60; Glucose Fasting 145 mg/dL (60-99); HDL Cholesterol 53 mg/dL (>40); LDL Cholesterol Calculated 54 mg/dL (<100); Potassium 3.2 mmol/L (3.3-5.1); Sodium 137 mmol/L (135-145); Triglycerides 204 mg/dL (<150)
[2023-09-24 08:36] LABS: Prostate Specific Antigen Scr 8.15 ng/mL (<0.05-4.0)
[2023-09-24 08:44] LABS: TSH reflex Free T4 3.61 uIU/mL (0.32-4.0)
== END 2023-09-24 06:02 | disposition home or self-care (01) ==
LOC: HO.LAB 06:01
PROVIDERS: PCP Family Medicine; Visit Provider Family Medicine
DX: Z00.00 Encounter for general adult medical examination without abnormal findings (principal); I10 Essential (primary) hypertension; Z12.5 Encounter for screening for malignant neoplasm of prostate
CPT/HCPCS: 36415; 80053; 80061; 81003; 82043; 82570; 84153; 84443; 85025

== ENCOUNTER 2023-10-04 08:47 | Outpatient (AMB) | payer MEDICARE, SELFPAY ==
[2023-10-04 08:54] VITALS: BP 124/60; PULSE 85; O2SAT 94; BMI 32.8
--- NOTE | 2023-10-04 08:54 | A.OFFPC_ITS ---
Vital Signs 10/04/23 08:54 Height 5 ft 8 in Weight 215 lb 8 oz BMI 32.8 BP 124/60 Blood Pressure Location Lt brachial Position Sitting Pulse 85 Pulse Source Pulse Oximeter Pulse Oximetry (%) 94 Oxygen Delivery Method Room Air Intake Visit Reasons: Extended exam f/u labs, health maintenance Intake Note: Pt presents to the office today for an extended exam with f/u labs, health maintenance. Allergies SADI Inhibitors [SADI INHIBITORS] Allergy (Unknown, Verified 10/04/23 08:59) FACIAL SWELLING lisinopril [LISINOPRIL] Allergy (Unknown, Verified 10/04/23 08:59) FACIAL SWELLING, hives, lip edema oxycodone [From PERCOCET] Allergy (Unknown, Verified 10/04/23 08:59) JOINT STIFFNESS peanut [PEANUTS] Allergy (Unknown, Verified 10/04/23 08:59) SWELLING,THROAT,HIVES Tobacco use date assessed: 10/04/23 Dental Screening Dental Screen Date: 10/04/23 Did you have a dental visit in the last 12 months?: Yes Did you have a dental problem in the last 6 months where you did not have access to dental care?: No Was dental information given to patient?: Patient has dentist HPI Extended exam f/u labs, health maintenance HPI Details 78 y/o male presents for an extended exa m with f/u labs and health maintenance. Labs were drawn 09/24/23. Reviewed labs with pt. Potassium level mildly low at 3.2. Triglycerides 204. TC 147. LDL 54. HDL 53. Elevated PSA of 8.15. A1c today 10/04/23 is 7.4%. He is on metformin 1000mg b.i.d. Last colonoscopy with Dr. Gary San. Pt reports bilateral hip/shoulder pain. [facility] Medical History COVID Benign prostatic hyperplasia with urinary obstruction MISTY on CPAP Bifascicular block Atherosclerotic cardiovascular disease COPD (chronic obstructive pulmonary disease) Carotid stenosis Hypertension Diabetes Hypercholesteremia Surgical History H/O colonoscopy Hx of elbow surgery History of eyelid surgery S/P TURP (status post transurethral resection of prostate) (~2019) Status post carotid surgery Hx of cataract Family History Father CVD (cardiovascular disease) Mother No problems noted. Sister Cancer Sister Cancer Social History Household Members: None Housing: Apartment Do you presently have visiting nurse or other home services: No Alcohol intake: never Comment: pt. is ambulatory, steady on foot. Patient Tobacco Use Status: Former Tobacco user Quit Date: 30 years ago e-Cigarette/Vaping Use: Never Used Second Hand Smoke Exposure: No service: No Current occupational status: retired Current occupational exposures/hazards: No Cognitive needs: No Hearing needs: No Vision needs: No Questionnaire PHQ-9 Over the last 2 weeks, how often have you been bothered by any of the following problems? 1. Little interest or pleasure in doing things: not at all 2. Feeling down, depressed, or hopeless: not at all 3. Trouble falling or staying asleep, or sleeping too much: not at all 4. Feeling tired or having little energy: not at all 5. Poor appetite or overeating: not at all 6. Feeling bad about yourself - or that you are a failure or have let yourself or your family down: not at all 7. Trouble concentrating on things, such as reading the newspaper or watching television: not at all 8. Moving or speaking so slowly that other people could have noticed. Or the opposite - being so fidgety or restless that you have been moving around a lot more than usual: not at all 9. Thoughts that you would be better off or of hurting yourself in some way: not at all Total score: 0 Depression Screening Interpretation: Negative Depression Screening Done: Yes [id number] - PHQ-9 Billing: Yes Source: Developed by Drs. Gary Damian, Elo Najera, Martin Ambrocio and colleagues, with an educational daina from [employer]. Thrive Questionnaire Date Thrive assessed: 10/04/23 I am a: Patient What is your living situation today?: I have a steady place to live Within the past 12 months, did the food you bought not last and you didn't have the money to get more?: Never true Within the past 12 months, did you worry whether your food would run out before you got money to buy more?: Never true Do you have trouble paying for medicines?: No Do you have trouble getting transportation to medical appointments?: No Do you have trouble paying your heating and electricity bill?: No Do you have trouble taking care of your child, family member or friend?: No Do you have trouble with day-to-day activities such as bathing, preparing meals, shopping, managing finances, etc.?: No Are you currently unemployed and looking for a job?: No Are you interested in more education?: No THRIVE Score: 0 AUDIT C Alcohol Use Questionnaire (AUDIT-C) 1. How often do you have a drink containing alcohol?: 2-4 times a month 2. How many drinks containing alcohol do you have on a typical day when you are drinking?: 1 or 2 3. How often do you have six or more drinks on one occasion?: Never Total Score: 2 RUDY-7 AMB Questionnaire RUDY-7 Date RUDY - 7 assessed: 10/04/23 Feeling nervous, anxious, or on edge: 0 = Not at all Not being able to stop or control worryin = Not at all Worrying too much about different things: 0 = Not at all Trouble relaxin = Not at all Being so restless that it is hard to sit still: 0 = Not at all Becoming easily annoyed or irritable: 0 = Not at all Feeling afraid as if something awful might happen: 0 = Not at all Total RUDY-7 score (0-4 normal; 5-9 mild; 10-14 moderate; 15-21 severe): 0 Source: Developed by Drs. Gary Damian, Elo Najera, Martin Ambrocio and colleagues, with an educational daina from [employer]. Review of Systems Const Denies chills, Denies fatigue, Denies fever(s), Denies headache(s) and Denies weakness Eyes Denies change in vision ENT Denies dizziness and Denies headache(s) Card Denies chest pain, Denies lightheadedness, Denies dyspnea and Denies other (Palpitations) Resp Denies cough, Denies dyspnea, Denies wheezing and Denies other ( shortness of breath) GI Denies abdominal pain, Denies melena, Denies hematochezia, Denies change in bowel habits, Denies dyspepsia and Denies nausea Denies hematuria and Denies dysuria Musc Denies numbness and Denies tingling Skin/Breast Denies rash, Denies unusual bruising and Denies wounds Neuro Denies dizziness, Denies headache(s), Denies numbness, Denies Sensory deficit (Neuro), Denies tingling, Denies paresthesias and Denies weakness Psych Denies anxiety and Denies depression Endo Denies fatigue Barry/Lymph Denies easy bleeding and Denies easy bruising Aller/Immun Denies wheezing Physical exam (Primary Care) Vital Signs: Last Vital Signs Pulse 85 10/04/23 08:54 BP 124/60 10/04/23 08:54 Pulse Ox 94 10/04/23 08:54 Oxygen Delivery Method Room Air 10/04/23 08:54 BMI result Body Mass Index 32.8 Tobacco/Smoking Status: Tobacco use Status Tobacco use date assessed 10/04/23 10/04/23 09:01 Patient Tobacco Use Status Former Tobacco user 10/04/23 08:54 e-Cigarette/Vaping Use Never Used 10/04/23 08:54 PHQ-9: PHQ-9 Score PHQ-9: Total score 0 10/04/23 10:08 Depression Screening Interpretation: Negative Thrive Assessment: Date of Thrive Assessment Date Thrive assessed 10/04/23 10/04/23 09:01 Const General: no acute distress and well developed Nutritional Appearance: well nourished Orientation/consciousness: patient oriented x3 HENMT Head: Yes normocephalic and Yes atraumatic Ears: hearing grossly normal bilaterally and TM's normal bilaterally General nose exam: Normal external nose present and Normal nares present Mouth: Normal oral and palatal mucosa present and moist mucous membranes Teeth and gingiva: dentition normal Throat: Yes posterior oropharynx normal Eyes General: appearance normal, both eyes and all related structures Pupils: Equal, round and reactive pupils present EOM: EOMs intact bilaterally Neck Neck: Yes normal visual inspection, Yes no lymphadenopathy and Yes trachea m idline Thyroid: Thyroid normal Carotids: no bruits Lymphatic: no lymphadenopathy noted Chest Chest palpation & inspection: normal inspection of the chest Resp Effort & Inspection: normal respiratory effort Auscultation: clear to auscultation bilaterally Cardio Rate: regular rate Rhythm: regular rhythm Heart sounds: S1 normal heart sound present, S2 normal heart sound present, no gallops, no murmurs and no rubs Bruits: no abdominal aortic bruits and no carotid bruits GI Palpation (GI): No Abdominal aortic bruit present, Soft to palpation, nontender, No hepatosplenomegaly present and No Rebound tenderness present Auscultation: normal bowel sounds General: Yes no CVA tenderness Back/Spine/Pelvis Back: no CVA tenderness Cervical Spine: cervical ROM normal and No Cervical spine tenderness Thoracic/Lumbar Spine: thoraco-lumbar ROM normal, No pain with thoraco-lumbar ROM, No thoracic spinal tenderness and No lumbar spinal tenderness Skin Lesions: no lesions Rashes: no rashes Trauma: no lacerations or abrasions Wounds: no wounds Nails: normal Neuro General: patient oriented x3 and gait normal Cranial nerves: Yes Equal, round and reactive pupils present Cognition (Neuro): normal cognition Gait exam (Neuro): Normal gait present Motor exam (neuro): 5/5 motor strength present throughout Sensory Exam: No Sensory deficit (Neuro) Deep tendon reflexes (DTR's): Right patellar reflex intensity grade: 2+ and Left patellar reflex intensity grade: 2+ Extrem General: Yes normal to inspection and No edema Psych Appearance: grossly normal Affect: normal affect Attitude: cooperative Thought process: Normal thought process present Results AMB Hemoglobin A1c AMB Hemoglobin A1c 7.4 % Last Edit by Catarina Willard MA on 10/04/23 09:13 Results Reviewed Results Reviewed: Laboratory Last Values Hgb A1c (Clinic) 7.4 % (4.0-6.0) H 10/04/23 09:09 Assessment and Plan Assessment & Plan (1) Essential hypertension: Code(s): I10 - Essential (primary) hypertension Plan: Blood?pressure?is?controlled.??Goal?is?less?than?130/80 Continue?current?medication?regime (2) Hypokalemia: Code(s): E87.6 - Hypokalemia Plan: Mild?hypokalemia. Possibly?due?to?chlorthalidone?use He?can?use?an?OTC?supplement?every?other?day Will?recheck?at?next?blood?draw (3) Diabetes type 2, controlled: Code(s): E11.9 - Type 2 diabetes mellitus without complications Qualifiers: Diabetes mellitus supervisor intermediates insulin use: without supervisor intermediates use Plan: A1c?suboptimal?control.??Goal?is?7.0% No?change?to?his?blood?sugar?regimen?today?but?encouraged?lifestyle?changes We?discussed?that?if?A1c?is?not?improved?however?we?would?adjust?his?medications ?at?his?next?visit (4) Atherosclerotic cardiovascular disease: Code(s): I25.10 - Atherosclerotic heart disease of [place] coronary artery without angina pectoris Plan: Followed?by??[facility] He?has?an?upcoming?nuclear?stress?test No?chest?pain Will?follow?along?with?Cardiology (5) Hypertriglyceridemia: Code(s): E78.1 - Pure hyperglyceridemia Plan: Mildly?elevated?triglycerides?likely?secondary?to?elevated?blood?sugars. He?will?work?on?decreasing?blood?sugars?and?we?will?follow?this (6) Screening for colon cancer: Code(s): Z12.11 - Encounter for screening for malignant neoplasm of colon Plan: Followed?by??[facility]?and?patient?says?his?last?colonoscopy?was?about?a?year?ago .??Recommended?5?year?follow-up?in?this?would?likely?be?his?last?colonoscopy. Follow-up?with?Gastroenterology?as?recommended.??Currently?up-to-date (7) Screening for prostate cancer: Code(s): Z12.5 - Encounter for screening for malignant neoplasm of prostate Plan: He?is?followed?by?Urology PSA?is?high?and?patient?and?Urology?are?aware (8) Adult general medical exam: Code(s): Z00.00 - Encounter for general adult medical examination without abnormal findings Plan: 78-year-old?male?presents?for?an?extended?exam Stable Encouraged?diabetic?diet (9) Polyarthralgia: Code(s): M25.50 - Pain in unspecified joint Plan: Bilateral?hip?and?shoulder?pain. Trial?naproxen Orders: Orders AMB Hemoglobin A1c Today E11.8 - Type 2 diabetes mellitus with unspecified complications Lipid Panel Today I65.23 - Occlusion and stenosis of bilateral carotid arteries, Z00.00 - Encounter for general adult medical examination without abnormal findings Comprehensive [place]. Panel Fast Today E87.6 - Hypokalemia, Z00.00 - Encounter for general adult medical examination without abnormal findings Microalbumin, Random (w Creat) Today E11.9 - Type 2 diabetes mellitus without complications, I10 - Essential (primary) hypertension Medications: New naproxen 500 mg PO BID PRN 60 tabs 2RF pain 30 days Coding Level of Care Code Est Pt Level 4 (16264) Diagnoses Essential hypertension I10 Hypokalemia E87.6 Diabetes type 2, controlled E11.9 Diabetes mellitus supervisor intermediates insulin use: without halfway use Atherosclerotic cardiovascular disease I25.10 Hypertriglyceridemia E78.1 Screening for colon cancer Z12.11 Screening for prostate cancer Z12.5 Adult general medical exam Z00.00 Polyarthralgia M25.50
== END 2023-10-04 10:22 | disposition home or self-care (01) ==
PROVIDERS: PCP Family Medicine; Visit Provider Family Medicine
DX: I10 Essential (primary) hypertension (principal); E87.6 Hypokalemia; E11.9 Type 2 diabetes mellitus without complications; E11.8 Type 2 diabetes mellitus with unspecified complications; I25.10 Atherosclerotic heart disease of native coronary artery without angina pectoris; E78.1 Pure hyperglyceridemia; Z12.11 Encounter for screening for malignant neoplasm of colon; Z12.5 Encounter for screening for malignant neoplasm of prostate; M25.50 Pain in unspecified joint
CPT/HCPCS: 83036; 99214

== ENCOUNTER 2023-11-19 08:58 | Outpatient (AMB) | payer MEDICARE, SELFPAY ==
--- NOTE | 2023-11-19 09:32 | A.OFFVIS_ITS ---
Intake Vital Signs 11/19/23 09:35 Height 5 ft 8 in Weight 217 lb 4 oz BMI 33.0 BP 132/70 Blood Pressure Location Lt brachial Position Sitting Pulse 72 Pulse Source Pulse Oximeter Pulse Oximetry (%) 93 Oxygen Delivery Method Room Air Intake Visit Reasons: 1yr follow up Sleep Apnea-Conf Intake Note: Patient presents for 1 year F/U. Allergies SADI Inhibitors [SADI INHIBITORS] Allergy (Unknown, Verified 11/19/23 09:34) FACIAL SWELLING lisinopril [LISINOPRIL] Allergy (Unknown, Verified 11/19/23 09:34) FACIAL SWELLING, hives, lip edema oxycodone [From PERCOCET] Allergy (Unknown, Verified 11/19/23 09:34) JOINT STIFFNESS peanut [PEANUTS] Allergy (Unknown, Verified 11/19/23 09:34) SWELLING,THROAT,HIVES HPI HPI Comments History of Present Illness Details 78 y/o male patient presents for follow up of MISTY on CPAP. The CPAP pressure was changed to [id number]. He feels a little better, sleeps well, but still feels he does not have enough air when he uses CPAP. Also he wakes up tired. The CPAP mask and tube keep falling apart, he wakes up and keep putting together and also tape them together. The CPAP compliance and therapy response (08/21/23-11/18/23) reviewed. The usage days 100% and the average usage hours 7 hrs 50 min. The AHI was 8.7/hr, the apnea index was central 1.4 and obstructive 3.5. [facility] Medical History COVID Benign prostatic hyperplasia with urinary obstruction MISTY on CPAP Bifascicular block Atherosclerotic cardiovascular disease COPD (chronic obstructive pulmonary disease) Carotid stenosis Hypertension Diabetes Hypercholesteremia Surgical History H/O colonoscopy Hx of elbow surgery History of eyelid surgery S/P TURP (status post transurethral resection of prostate) (~2019) Status post carotid surgery Hx of cataract Family History Father CVD (cardiovascular disease) Mother No problems noted. Sister Cancer Sister Cancer Social History Household Members: None Housing: Apartment Do you presently have visiting nurse or other home services: No Alcohol intake: never Comment: pt. is ambulatory, steady on foot. Patient Tobacco Use Status: Former Tobacco user Quit Date: 30 years ago e-Cigarette/Vaping Use: Never Used Second Hand Smoke Exposure: No service: No Current occupational status: retired Current occupational exposures/hazards: No Cognitive needs: No Hearing needs: No Vision needs: No Review of Systems Const All systems reviewed & are unremarkable except as noted in HPI and below Physical Exam Vital Signs: Last Vital Signs Pulse 72 11/19/23 09:35 BP 132/70 11/19/23 09:35 Pulse Ox 93 11/19/23 09:35 Oxygen Delivery Method Room Air 11/19/23 09:35 BMI result Body Mass Index 33.0 Const General: cooperative Nutritional Appearance: obese Orientation/consciousness: patient oriented x3 Resp Effort & Inspection: normal respiratory effort and able to speak in complete sentences Neuro General: patient oriented x3 and gait normal Cranial nerves: Yes CN's II-XII intact bilaterally Cognition (Neuro): normal cognition Psych Appearance: grossly normal Mental Status: mental status grossly normal Speech and movement: Normal speech and movement present Assessment & Plan Assessment & Plan (1) MISTY (obstructive sleep apnea): Code(s): G47.33 - Obstructive sleep apnea (adult) (pediatric) Plan Advised patient to try CPAP at 20 cmH2O with no ramp. CPAP supply prescription sent to [facility]. Stressed compliance, use CPAP nightly and more than 4 hours. Wt reduction advised. Coding Level of Care Code Est Pt Level 3 (34928) Diagnoses MISTY (obstructive sleep apnea) G47.33
[2023-11-19 09:35] VITALS: BP 132/70; PULSE 72; O2SAT 93; BMI 33.0
== END 2023-11-19 09:49 | disposition home or self-care (01) ==
PROVIDERS: Visit Provider Nurse Practitioner Family
DX: G47.33 Obstructive sleep apnea (adult) (pediatric) (principal)
CPT/HCPCS: 99213

== ENCOUNTER → 2023-11-19 08:58 | Outpatient (BNVA) | payer MEDICARE, SELFPAY | PROVIDERS: Visit Provider Nurse Practitioner Family | DX: G47.33 Obstructive sleep apnea (adult) (pediatric) (principal); Z99.89 Dependence on other enabling machines and devices | CPT/HCPCS: 99212 ==

== ENCOUNTER 2023-11-29 09:18 | Outpatient (REF) | payer MEDICARE, SELFPAY ==
--- NOTE | ~2023-11-29 | US_ITS ---
EXAMINATION: US EXTRACRANIAL CAROTID DUPLEX, BILATERAL CLINICAL INFORMATION: Occlusion and stenosis of bilateral carotid arteries COMPARISON: Carotid ultrasound September 19, 2022 TECHNIQUE: Real-time ultrasound and Doppler techniques (integrating B-mode 2-D vascular images, Doppler spectral analysis and color-flow Doppler imaging) were utilized to interrogate the extracranial carotid arteries, the vertebral arteries and proximal subclavian arteries bilaterally. The degree of stenosis is determined by criteria similar to NASCET. FINDINGS: Right Side: 1. There is mild atherosclerotic plaque seen in the bifurcation/proximal ICA region. 2. The common carotid artery PSV proximally is 139 cm/s and distally 115 cm/s. 3. The proximal internal carotid artery velocities are 90 cm/s systolic and 11 cm/s diastolic. 4. The proximal external carotid artery PSV is 133 cm/s. 5. The vertebral artery shows antegrade flow. 6. The subclavian artery waveforms are normal. Left Side: 1. There is mild atherosclerotic plaque seen in the bifurcation/proximal ICA region. 2. The common carotid artery PSV proximally is 114 cm/s and distally 107 cm/s. 3. The proximal internal carotid artery velocities are 83 cm/s systolic and 19 cm/s diastolic. 4. The proximal external carotid artery PSV is 100 cm/s. 5. The vertebral artery shows antegrade flow. 6. The subclavian artery waveforms are normal. US/US carotid duplex BI IMPRESSION: 1. RIGHT: Minimal, non-hemodynamically significant stenosis of the proximal right internal carotid artery corresponding to a 0-49% stenosis by velocity criteria. 2. LEFT: Minimal, non-hemodynamically significant stenosis of the proximal left internal carotid artery corresponding to a 0-49% stenosis by velocity criteria. 3. There is no change in the category severity of disease when compared to the previous study dated September 19, 2022.
== END 2023-11-29 09:19 | disposition home or self-care (01) ==
LOC: HO.US 09:18
PROVIDERS: PCP Family Medicine; Visit Provider Surgery Vascular Surgery
DX: I65.23 Occlusion and stenosis of bilateral carotid arteries (principal)
CPT/HCPCS: 93880

== ENCOUNTER 2023-12-25 05:59 | Outpatient (REF) | payer MEDICARE, SELFPAY ==
[2023-12-25 07:10] LABS: Alanine Aminotransferase 22 U/L (0-40); Albumin Level 4.2 g/dL (3.5-5.0); Alkaline Phosphatase 43 U/L (39-117); Anion Gap 15 (12-20); Aspartate Amino Transferase 17 U/L (5-37); Bilirubin Total 0.4 mg/dL (0.0-1.0); Blood Urea Nitrogen 20 mg/dL (9-16); Calcium 9.7 mg/dL (8.4-10.2); Carbon Dioxide 31 mmol/L (22-29); Chloride 97 mmol/L (96-108); Cholesterol 133 mg/dL (<200); Estimated Glomerular Filt Rate > 60; Glucose Fasting 166 mg/dL (60-99); HDL Cholesterol 46 mg/dL (>40); LDL Cholesterol Calculated 51 mg/dL (<100); Sodium 139 mmol/L (135-145); Triglycerides 181 mg/dL (<150)
[2023-12-25 08:28] LABS: Creatinine Urine 203.46 mg/dL; Microalbum/Creatinine Ratio Ur 38.3 ug/mg cr (<30)
== END 2023-12-25 06:00 | disposition home or self-care (01) ==
LOC: HO.LAB 05:59
PROVIDERS: PCP Family Medicine; Visit Provider Family Medicine
DX: Z00.00 Encounter for general adult medical examination without abnormal findings (principal); E87.6 Hypokalemia; I10 Essential (primary) hypertension; E11.9 Type 2 diabetes mellitus without complications; I65.23 Occlusion and stenosis of bilateral carotid arteries
CPT/HCPCS: 36415; 80053; 80061; 82043; 82570

== ENCOUNTER 2024-01-07 09:28 | Outpatient (AMB) | payer MEDICARE, SELFPAY ==
--- NOTE | 2024-01-07 09:31 | A.OFFPC_ITS ---
Vital Signs 01/07/24 09:32 Height 5 ft 8 in Weight 219 lb 8 oz BMI 33.4 BP 132/64 Blood Pressure Location Rt brachial Position Sitting Pulse 80 Pulse Source Pulse Oximeter Pulse Oximetry (%) 94 Intake Visit Reasons: Follow up diabetes chronic conditions Intake Note: pt is here for follow up regarding DM, and chronic ongoing conditions Mental Health Program Manager Required: No Allergies SADI Inhibitors [SADI INHIBITORS] Allergy (Unknown, Verified 01/07/24 09:33) FACIAL SWELLING lisinopril [LISINOPRIL] Allergy (Unknown, Verified 01/07/24 09:33) FACIAL SWELLING, hives, lip edema oxycodone [From PERCOCET] Allergy (Unknown, Verified 01/07/24 09:33) JOINT STIFFNESS peanut [PEANUTS] Allergy (Unknown, Verified 01/07/24 09:33) SWELLING,THROAT,HIVES Medication List - Last Reconciled 01/07/24 by Denis Diehl MD albuterol sulfate 90 mcg/actuation 180 mcg inhalation Q4H PRN amlodipine 10 mg PO DAILY aspirin 81 mg PO DAILY blood sugar diagnostic USE DIRECTED DAILY [id number]-[id number]-lpsrdjdhvm 160-9-4.8 mcg/actuation (Breztri Aerosphere) 2 inhalations inhalation BID chlorthalidone 50 mg PO QAM 90 days epinephrine 0.3 mg (0.3 mL) IM Q20M PRN hydralazine 50 mg PO TID 90 days metformin 1,000 mg PO BID 90 days naproxen 500 mg PO BID PRN 30 days rosuvastatin 10 mg PO BEDTIME 90 days tamsulosin 0.4 mg PO BID Tobacco use date assessed: 10/04/23 Fall risk assessment: No Falls in past year Last assessed Fall Risk: 01/07/24 Dental Screening Dental Screen Date: 10/04/23 HPI Follow up diabetes chronic conditions HPI Details 78 y/o male presents to f/u diabetes, ch ronic conditions. Last A1c 10/04/23 7.4%. Had advised lifestyle changes last office visit. A1c today 01/07/24 6.7%. Labs were drawn 12/25/23. Reviewed labs with pt. Triglycerides 181. TC 133. LDL 51. HDL 46. He is on rosuvastatin 10mg. Blood pressure today 132/64. He is on amlodipine 10mg, chlorthalidone 50mg. Pt states he has a cardiolite stress test scheduled with his occupational therapist's assistant. HPI Comments History of Present Illness Details Documentation assistance for Denis Diehl MD, was provided by Michael Jaquez, Tierce Filler on 01/07/2024 9:50 AM EST. I, Dr. Diehl, have read, observed, and verified documentation. [facility] History COVID Benign prostatic hyperplasia with urinary obstruction MISTY on CPAP Bifascicular block Atherosclerotic cardiovascular disease COPD (chronic obstructive pulmonary disease) Carotid stenosis Hypertension Diabetes Hypercholesteremia Surgical History H/O colonoscopy Hx of elbow surgery History of eyelid surgery S/P TURP (status post transurethral resection of prostate) (~2019) Status post carotid surgery Hx of cataract Family History Father CVD (cardiovascular disease) Mother No problems noted. Sister Cancer Sister Cancer Social History Household Members: None Housing: Apartment Do you presently have visiting nurse or other home services: No Alcohol intake: never Comment: pt. is ambulatory, steady on foot. Patient Tobacco Use Status: Former Tobacco user Quit Date: 30 years ago e-Cigarette/Vaping Use: Never Used Second Hand Smoke Exposure: No service: No Current occupational status: retired Current occupational exposures/hazards: No Cognitive needs: No Hearing needs: No Vision needs: No Questionnaire Thrive Questionnaire Date Thrive assessed: 10/04/23 RUDY-7 AMB Questionnaire RUDY-7 Date RUDY - 7 assessed: 10/04/23 Source: Developed by Drs. Gary Damian, Elo Najera, Martin Ambrocio and colleagues, with an educational daina from [employer]. Review of Systems Const Denies chills, Denies fatigue, Denies fever(s), Denies headache(s) and Denies weakness ENT Denies dizziness and Denies headache(s) Card Denies dyspnea Resp Denies cough, Denies dyspnea, Denies wheezing and Denies other (shortness of breath) Musc Denies numbness and Denies tingling Neuro Denies dizziness, Denies headache(s), Denies numbness, Denies tingling and Denies weakness Psych Denies anxiety and Denies depression Endo Denies fatigue Aller/Immun Denies wheezing Physical exam (Primary Care) Vital Signs: Last Vital Signs Pulse 80 01/07/24 09:32 BP 132/64 01/07/24 09:32 Pulse Ox 94 01/07/24 09:32 BMI result Body Mass Index 33.4 Tobacco/Smoking Status: Tobacco use Status Tobacco use date assessed 10/04/23 01/07/24 09:34 Patient Tobacco Use Status Former Tobacco user 01/07/24 09:34 e-Cigarette/Vaping Use Never Used 01/07/24 09:34 Thrive Assessment: Date of Thrive Assessment Date Thrive assessed 10/04/23 01/07/24 09:34 Const General: well developed; No acute distress Nutritional Appearance: well nourished Orientation/consciousness: patient oriented x3 HENMT Head: Yes normocephalic and Yes atraumatic Eyes General: appearance normal, both eyes and all related structures Pupils: Equal, round and reactive pupils present EOM: EOMs intact bilaterally Resp Effort & Inspection: normal respiratory effort Neuro General: patient oriented x3 and gait normal Cranial nerves: Yes Equal, round and reactive pupils present Psych Affect: normal affect Assessment and Plan Assessment & Plan (1) Diabetes type 2, controlled: Code(s): E11.9 - Type 2 diabetes mellitus without complications Qualifiers: Diabetes mellitus skilled nursing insulin use: without skilled nursing use Plan: Now?6.7%. Good?control.??Goal?is?less?than?7.0% No?medication?changes?were?made?at?last?visit?did?though?he?has?improved?his? t. Continue?diabetic?diet?and?I?encouraged?exercise. (2) Essential hypertension: Code(s): I10 - Essential (primary) hypertension Plan: Blood?pressure?is?fairly?well?controlled.??Goal?is?less?than?130/80. Encouraged?salt/sodium?avoidance?and?exercise Will?follow (3) Atherosclerotic cardiovascular disease: Code(s): I25.10 - Atherosclerotic heart disease of [place] coronary artery without angina pectoris Plan: Patient?has?a?Cardiolite?stress?test?scheduled?with?his?occupational therapist's assistant. 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
[2024-01-07 09:32] VITALS: BP 132/64; PULSE 80; O2SAT 94; BMI 33.4
== END 2024-01-07 10:12 | disposition home or self-care (01) ==
PROVIDERS: PCP Family Medicine; Visit Provider Family Medicine
DX: E11.9 Type 2 diabetes mellitus without complications (principal); I10 Essential (primary) hypertension; I25.10 Atherosclerotic heart disease of native coronary artery without angina pectoris; E78.1 Pure hyperglyceridemia; R80.9 Proteinuria, unspecified
CPT/HCPCS: 99214

== ENCOUNTER 2024-01-10 11:09 | Outpatient (AMB) | payer MEDICARE, SELFPAY ==
--- NOTE | 2024-01-10 11:31 | MHC.OFFVIS ---
Intake Visit Reasons: follow up 1 yr carotid US 11/29/2023 Intake Note: Patient presents for 1 year follow up , s/p 11/28 carotid US. Patient states he has tingling in his feet and hands, he is not sure if it is related. Accompanied by: Self / Same As Patient Allergies SADI Inhibitors [SADI INHIBITORS] Allergy (Unknown, Verified 01/10/24 11:33) FACIAL SWELLING lisinopril [LISINOPRIL] Allergy (Unknown, Verified 01/10/24 11:33) FACIAL SWELLING, hives, lip edema oxycodone [From PERCOCET] Allergy (Unknown, Verified 01/10/24 11:33) JOINT STIFFNESS peanut [PEANUTS] Allergy (Unknown, Verified 01/10/24 11:33) SWELLING,THROAT,HIVES HPI HPI follow up 1 yr carotid US 11/29/2023: Details: Very pleasant 78-year-old gentleman presents for follow-up evaluation regarding his carotids. He has been doing extremely well since his last visit. 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 He is being maintained on an aspirin and statin. He now presents for routine follow-up. [facility] Medical History COVID Benign prostatic hyperplasia with urinary obstruction MISTY on CPAP Bifascicular block Atherosclerotic cardiovascular disease COPD (chronic obstructive pulmonary disease) Carotid stenosis Hypertension Diabetes Hypercholesteremia Surgical History H/O colonoscopy Hx of elbow surgery History of eyelid surgery S/P TURP (status post transurethral resection of prostate) (~2019) Status post carotid surgery Hx of cataract Family History Father CVD (cardiovascular disease) Mother No problems noted. Sister Cancer Sister Cancer Social History Household Members: None Housing: Apartment Do you presently have visiting nurse or other home services: No Alcohol intake: never Comment: pt. is ambulatory, steady on foot. Patient Tobacco Use Status: Former Tobacco user Quit Date: 30 years ago e-Cigarette/Vaping Use: Never Used Second Hand Smoke Exposure: No service: No Current occupational status: retired Current occupational exposures/hazards: No Cognitive needs: No Hearing needs: No Vision needs: No Review of Systems Const All systems reviewed & are unremarkable except as noted in HPI and below Reports no additional complaints ENT Reports Normal hearing present Card Denies chest pain, Denies chest pain at rest, Denies chest pain with activity and Denies pedal edema Resp Denies cough GI Denies abdominal pain Musc Denies abnormal gait, Denies muscle cramps and Denies radiating pain into limb Skin/Breast Denies skin ulcer and Denies wounds Neuro Reports Normal hearing present and Denies abnormal gait Psych Reports no additional complaints Physical Exam Const General: cooperative, healthy appearing and comfortable Orientation/consciousness: oriented to person, oriented to place and oriented to time HEENT Head: Yes normal to inspection Neck Neck: Yes normal visual inspection Carotids: no bruits Chest Chest palpation & inspection: normal inspection of the chest Resp Effort & Inspection: normal respiratory effort and able to speak in complete sentences Auscultation: clear to auscultation bilaterally, no crackles, no rales, no rhonchi and no wheezes Cardio Rate: regular rate Rhythm: regular rhythm Heart sounds: S1 normal heart sound present and S2 normal heart sound present Bruits: no carotid bruits Peripheral pulses: Peripheral pulses 2+ throughout GI Inspection: Yes normal to inspection Skin Wounds: no wounds Hair: normal Neuro General: oriented to person, oriented to place and oriented to time Cranial nerves: Yes CN's II-XII intact bilaterally and Yes Normal hearing present Cognition (Neuro): normal cognition Motor exam (neuro): 5/5 motor strength present throughout Extrem Other: venous exam: No significant superficial varicosities or spider telangiectasias, minimal edema General: No clubbing, No cyanosis and No edema Psych Appearance: grossly normal Mental Status: mental status grossly normal Speech and movement: Normal speech and movement present Results Reviewed Results Reviewed: Testing dated 11/29/2023 demonstrates bilateral 0-49% stenosis. Written report and images were reviewed Assessment & Plan Assessment & Plan (1) Carotid stenosis, bilateral: Comment: 12/02/2015- left carotid endarterectomy Code(s): I65.23 - Occlusion and stenosis of bilateral carotid arteries Category: Medical Plan: In short patient has asymptomatic carotid disease. We have reviewed signs and symptoms of a stroke. We also discussed risk factor modification inclusive a healthy diet low in cholesterol. The patient will follow up with us with surveillance ultrasound of the carotids 1 year. Should there be any changes or signs or symptoms of a stroke we will be happy to see them back sooner. Thank you for allowing us to participate in this patient's care. If there are any questions or concerns please do not hesitate to contact us. Orders: Orders US carotid duplex BI 1 Year I65.23 - Occlusion and stenosis of bilateral carotid arteries Coding Level of Care Code Est Pt Level 4 (63413) Diagnoses Carotid stenosis, bilateral I65.23
== END 2024-01-10 11:41 | disposition home or self-care (01) ==
PROVIDERS: PCP Family Medicine; Visit Provider Surgery Vascular Surgery
DX: I65.23 Occlusion and stenosis of bilateral carotid arteries (principal)
CPT/HCPCS: 99213

== ENCOUNTER → 2024-01-10 11:09 | Outpatient (BNVA) | payer MEDICARE, SELFPAY | PROVIDERS: PCP Family Medicine; Visit Provider Surgery Vascular Surgery | DX: I65.23 Occlusion and stenosis of bilateral carotid arteries (principal) | CPT/HCPCS: 99212 ==

== ENCOUNTER → 2024-01-18 08:06 | Outpatient (REF) | payer MEDICARE, SELFPAY ==
--- NOTE | ~2024-01-18 | NM_ITS ---
Exercise Myocardial perfusion study Indication: Precordial chest pain to evaluate for myocardial ischemia Technique: The patient was brought in for an exercise perfusion study on 01/18/2024. Patient performed exercise as per Gerald protocol and was injected 35 mCi of sestamibi was given intravenously one target HR was achieved. Images were obtained using the SPECT gamma camera interlaced with the gating device. Images were obtained in supine position. Resting perfusion study was performed on 01/21/2024. Patient was administered 35 mCi of sestamibi intravenously at rest. Images were then obtained in supine position. Images obtained with and without CT attenuation. Total DLP 193 mGy-cm. Images were processed with the software and compared side to side in short axis, horizontal long axis and vertical long axis views. Findings: The stress perfusion study showed images show mildly reduced uptake in the inferior and the lateral wall of the LV myocardium. Remainder of the LV myocardium is normally perfused. Attenuation corrected images show focal area of mildly reduced uptake in the inferoapical wall of the LV myocardium.. The gated study shows normal LV systolic function with calculated LVEF of 55%. LV cavity is normal in in size. The gated study shows systolic wall thickening and contraction of all segments. There is no transient ischemic dilation. Resting study shows no change in perfusion in compared to stress perfusion study. Gating at rest reveals normal systolic wall motion with ejection fraction at greater than 55%. The findings are consistent with normal perfusion study. NM/NM cardiolite stress test Impression: 1. Normal myocardial perfusion study 2. Gated LVEF is 55% 3. Transient ischemic dilatation not present Stress EKG is negative for ischemia
--- NOTE | 2024-01-18 08:09 | CA_ITS ---
Acquisition Time: 2024-01-18 08:09:23 Total Exercise Time: 00:02:00 Test Indications: CP Medications: SE H Protocol: LEXISCAN Max HR: 105 BPM 73% of Pred: 143 BPM Max BP: 138/070 mmHG Max Work Load: 1.0 METS Pharmacologgical stress test with Lexiscan while sitting and marching in place, with mild SOB, no chest discomfort, with isolated PACs, with normotenisve response to injection, with nondiagnoisitic EKGs. Aminophylline 75mg IVP given to reverse Lexiscan. Nuclear images pending. Test reviewed with Dr. Jennings. Referred By: Hernandez Jennings Overread By: Maxine Barbosa
== END ==
LOC: HO.CARD 08:06
PROVIDERS: PCP Family Medicine; Visit Provider Internal Medicine
DX: R07.2 Precordial pain (principal)
CPT/HCPCS: 78452; 93017; A9500; J0280; J2785

== ENCOUNTER → 2024-01-18 08:09 | Outpatient (BNV) | payer MEDICARE, SELFPAY | PROVIDERS: PCP Family Medicine; Visit Provider Nurse Practitioner | DX: R07.2 Precordial pain (principal) | CPT/HCPCS: 78452; 93016; 93018 ==

== ENCOUNTER 2024-02-04 09:27 | Outpatient (AMB) | payer MEDICARE, SELFPAY ==
[2024-02-04 09:55] VITALS: BP 120/68; PULSE 95; BMI 32.8
--- NOTE | 2024-02-04 09:55 | A.OFFVIS_ITS ---
Vital Signs 02/04/24 09:55 Height 5 ft 8 in Weight 216 lb 0.848 oz BMI 32.8 BP 120/68 Blood Pressure Location Lt brachial Position Sitting Pulse 95 Pulse Source Pulse Oximeter Intake Visit Reasons: 6 mth f/up Allergies SADI Inhibitors [SADI INHIBITORS] Allergy (Unknown, Verified 01/10/24 11:33) FACIAL SWELLING lisinopril [LISINOPRIL] Allergy (Unknown, Verified 01/10/24 11:33) FACIAL SWELLING, hives, lip edema oxycodone [From PERCOCET] Allergy (Unknown, Verified 01/10/24 11:33) JOINT STIFFNESS peanut [PEANUTS] Allergy (Unknown, Verified 01/10/24 11:33) SWELLING,THROAT,HIVES Medication List - Last Reconciled 02/04/24 by Hernandez Jennings MD albuterol sulfate 90 mcg/actuation 180 mcg inhalation Q4H PRN amlodipine 10 mg PO DAILY aspirin 81 mg PO DAILY blood sugar diagnostic USE DIRECTED DAILY gqrukkpelb-indejygh-gjcksjyglo 160-9-4.8 mcg/actuation (Breztri Aerosphere) 2 inhalations inhalation BID chlorthalidone 50 mg PO QAM 90 days epinephrine 0.3 mg (0.3 mL) IM Q20M PRN finasteride 5 mg PO DAILY hydralazine 50 mg PO TID 90 days metformin 1,000 mg PO BID 90 days naproxen 500 mg PO BID PRN 30 days rosuvastatin 10 mg PO BEDTIME 90 days tamsulosin 0.4 mg PO BID HPI Comments Details: Taqueria returns for follow-up regarding coronary disease. He has multiple cardiovascular risk factors including history of smoking, hypertension, diabetes, dyslipidemia and established coronary as well as peripheral vascular disease. Overall, he feels good. No specific cardiac complaints. [facility] Medical History COVID Benign prostatic hyperplasia with urinary obstruction MISTY on CPAP Bifascicular block Atherosclerotic cardiovascular disease COPD (chronic obstructive pulmonary disease) Carotid stenosis Hypertension Diabetes Hypercholesteremia Surgical History H/O colonoscopy Hx of elbow surgery History of eyelid surgery S/P TURP (status post transurethral resection of prostate) (~2019) Status post carotid surgery Hx of cataract Family History Father CVD (cardiovascular disease) Mother No problems noted. Sister Cancer Sister Cancer Social History Household Members: None Housing: Apartment Do you presently have visiting nurse or other home services: No Alcohol intake: never Comment: pt. is ambulatory, steady on foot. Patient Tobacco Use Status: Former Tobacco user e-Cigarette/Vaping Use: Never Used Second Hand Smoke Exposure: No service: No Current occupational status: retired Current occupational exposures/hazards: No Cognitive needs: No Hearing needs: No Vision needs: No Review of Systems Const Denies weakness ENT Denies dizziness Card Denies chest pain, Denies chest pain with activity, Denies syncope, Denies rapid heart rate, Denies pedal edema, Denies edema, Denies leg edema, Denies lightheadedness, Denies palpitations, Denies dyspnea, Denies dyspnea on exertion and Denies orthopnea Resp Denies cough, Denies dyspnea and Denies dyspnea on exertion GI Denies hematochezia and Denies change in stool character Musc Denies abnormal gait, Denies muscle cramps, Denies muscle weakness, Denies numbness, Denies radiating pain into limb and Denies tingling Neuro Denies abnormal gait, Denies dizziness, Denies syncope, Denies numbness, Denies tingling and Denies weakness Endo Denies palpitations Physical Exam Vital Signs: Last Vital Signs Pulse 95 02/04/24 09:55 BP 120/68 02/04/24 09:55 BMI result Body Mass Index 32.8 Const General: comfortable and no acute distress Orientation/consciousness: patient oriented x3 HEENT Other: Unremarkable Head: Yes normal to inspection Neck Neck: Yes normal visual inspection Chest Chest palpation & inspection: normal inspection of the chest Resp Auscultation: clear to auscultation bilaterally Cardio Palpation: normal PMI Heart sounds: S1 normal heart sound present, S2 normal heart sound present, no gallops, no murmurs and no rubs GI Palpation (GI): Soft to palpation Back/Spine/Pelvis Other: unremarkable Skin General skin exam: no rashes or lesions noted Neuro General: patient oriented x3 Extrem General: Yes normal to inspection Psych Mental Status: mental status grossly normal Assessment & Plan Assessment & Plan (1) Atherosclerotic cardiovascular disease: Code(s): I25.10 - Atherosclerotic heart disease of [place] coronary artery without angina pectoris Category: Medical Plan: Cardiac catheterization in the past had revealed minimal irregularities in the left main, LAD, circumflex and moderate nonobstructive disease in the right coronary artery. Most recently, perfusion imaging from this month is unremarkable. Continue aspirin and statins. Last LDL 51 mg/dL. Prior values also similar. Could not take beta-blockers due to possible allergic reaction in the past as well as epinephrine use for allergies (used once in the past). (2) Bifascicular block: Code(s): I45.2 - Bifascicular block Category: Medical Plan: Stable. (3) Atrial arrhythmia: Code(s): I49.8 - Other specified cardiac arrhythmias Category: Medical Plan: In the last Holter, he had frequent supraventricular ectopy with a burden of almost 10%. Increased risk of atrial fibrillation the future. (4) Essential hypertension: Code(s): I10 - Essential (primary) hypertension Category: Medical Plan: Stable. He has allergy to SADI inhibitors in the past due to swelling of lips. Also suspected beta-caitlyn allergy, but symptoms are not very clear. (5) Type 2 diabetes mellitus with unspecified complications: Code(s): E11.8 - Type 2 diabetes mellitus with unspecified complications Category: Medical Plan: On Metformin. Last HbA1c 7.4%. (6) Carotid stenosis, bilateral: Comment: 12/02/2015- left carotid endarterectomy Code(s): I65.23 - Occlusion and stenosis of bilateral carotid arteries Category: Medical Plan: Status post left carotid endarterectomy. Last carotid Doppler shows no significant disease. (7) MISTY on CPAP: Code(s): G47.33 - Obstructive sleep apnea (adult) (pediatric); Z99.89 - Dependence on other enabling machines and devices Category: Medical Plan: Continue CPAP. Coding Level of Care Code Est Pt Level 4 (45649) Diagnoses Atherosclerotic cardiovascular disease I25.10 Bifascicular block I45.2 Atrial arrhythmia I49.8 Essential hypertension I10 Type 2 diabetes mellitus with unspecified complications E11.8 Carotid stenosis, bilateral I65.23 MISTY on CPAP G47.33; Z99.89
== END 2024-02-04 10:46 | disposition home or self-care (01) ==
PROVIDERS: PCP Family Medicine; Visit Provider Internal Medicine
DX: I25.10 Atherosclerotic heart disease of native coronary artery without angina pectoris (principal); I45.2 Bifascicular block; I49.8 Other specified cardiac arrhythmias; I10 Essential (primary) hypertension; E11.8 Type 2 diabetes mellitus with unspecified complications; I65.23 Occlusion and stenosis of bilateral carotid arteries; G47.33 Obstructive sleep apnea (adult) (pediatric); Z99.89 Dependence on other enabling machines and devices
CPT/HCPCS: 99214

== ENCOUNTER → 2024-02-04 09:27 | Outpatient (BNVA) | payer MEDICARE, SELFPAY | PROVIDERS: PCP Family Medicine; Visit Provider Internal Medicine | DX: I45.2 Bifascicular block (principal); I49.8 Other specified cardiac arrhythmias; I65.23 Occlusion and stenosis of bilateral carotid arteries; I10 Essential (primary) hypertension; E11.8 Type 2 diabetes mellitus with unspecified complications; G47.33 Obstructive sleep apnea (adult) (pediatric); Z99.89 Dependence on other enabling machines and devices | CPT/HCPCS: 99212 ==

== ENCOUNTER 2024-03-31 11:26 | Outpatient (AMB) | payer MEDICARE, SELFPAY ==
--- NOTE | 2024-03-31 11:38 | A.OFFPC_ITS ---
Vital Signs 03/31/24 11:41 Height 5 ft 8 in Weight 218 lb BMI 33.1 BP 116/60 Blood Pressure Location Lt brachial Position Sitting Respiration 16 Pulse 77 Pulse Source Pulse Oximeter Temp 97.9 F Temp Source Tympanic Pulse Oximetry (%) 94 Oxygen Delivery Method Room Air Intake Visit Reasons: f/u diabetes, hypertension Intake Note: follow up diabetes and hypertension Allergies SADI Inhibitors [SAID INHIBITORS] Allergy (Unknown, Verified 03/31/24 11:39) FACIAL SWELLING lisinopril [LISINOPRIL] Allergy (Unknown, Verified 03/31/24 11:39) FACIAL SWELLING, hives, lip edema oxycodone [From PERCOCET] Allergy (Unknown, Verified 03/31/24 11:39) JOINT STIFFNESS peanut [PEANUTS] Allergy (Unknown, Verified 03/31/24 11:39) SWELLING,THROAT,HIVES Medication List - Last Reconciled 03/31/24 by Denis Diehl MD albuterol sulfate 90 mcg/actuation 180 mcg inhalation Q4H PRN amlodipine 10 mg PO DAILY aspirin 81 mg PO DAILY blood sugar diagnostic USE DIRECTED DAILY dznohkbtnu-tjjxwdai-rlqifmewwm 160-9-4.8 mcg/actuation (Breztri Aerosphere) 2 inhalations inhalation BID chlorthalidone 50 mg PO QAM 90 days epinephrine 0.3 mg (0.3 mL) IM Q20M PRN finasteride 5 mg PO DAILY hydralazine 50 mg PO TID 90 days metformin 1,000 mg PO BID 90 days naproxen 500 mg PO BID PRN 30 days rosuvastatin 10 mg PO BEDTIME 90 days tamsulosin 0.4 mg PO BID Tobacco use date assessed: 10/04/23 Dental Screening Dental Screen Date: 10/04/23 HPI f/u diabetes, hypertension HPI Details 78 y/o male presents to f/u diabetes, hy pertension. Last A1c 01/07/24 6.7%. A1c today 03/31/24 6.4%. He is on metformin 1000mg b.i.d. Hx of atherosclerotic coronary disease. Blood pressure today is 116/60. He is on amlodipine 10mg, chlorthalidone 50mg, hydralazine. Lipid panel drawn 12/25/23. Triglycerides 181. TC 133. LDL 51. HDL 46. He is on rosuvastatin 10mg. COUNTS INCLUDE 234 BEDS AT [facility] Medical History COVID Benign prostatic hyperplasia with urinary obstruction MISTY on CPAP Bifascicular block Atherosclerotic cardiovascular disease COPD (chronic obstructive pulmonary disease) Carotid stenosis Hypertension Diabetes Hypercholesteremia Surgical History H/O colonoscopy Hx of elbow surgery History of eyelid surgery S/P TURP (status post transurethral resection of prostate) (~2019) Status post carotid surgery Hx of cataract Family History Father CVD (cardiovascular disease) Mother No problems noted. Sister Cancer Sister Cancer Social History Household Members: None Housing: Apartment Do you presently have visiting nurse or other home services: No Alcohol intake: never Comment: pt. is ambulatory, steady on foot. Patient Tobacco Use Status: Former Tobacco user e-Cigarette/Vaping Use: Never Used Second Hand Smoke Exposure: No service: No Current occupational status: retired Current occupational exposures/hazards: No Cognitive needs: No Hearing needs: No Vision needs: No Questionnaire Thrive Questionnaire Date Thrive assessed: 10/04/23 RUDY-7 AMB Questionnaire RUDY-7 Date RUDY - 7 assessed: 10/04/23 Source: Developed by Drs. Gary Damian, Elo Najera, Martin Ambrocio and colleagues, with an educational daina from [employer]. Review of Systems Const Denies chills, Denies fatigue, Denies fever(s), Denies headache(s) and Denies weakness ENT Denies dizziness and Denies headache(s) Card Denies dyspnea Resp Denies cough, Denies dyspnea, Denies wheezing and Denies other (shortness of breath) Musc Denies numbness and Denies tingling Neuro Denies dizziness, Denies headache(s), Denies numbness, Denies tingling and Denies weakness Psych Denies anxiety and Denies depression Endo Denies fatigue Aller/Immun Denies wheezing Physical exam (Primary Care) Vital Signs: Last Vital Signs Temp 97.9 F 03/31/24 11:41 Pulse 77 03/31/24 11:41 Resp 16 03/31/24 11:41 BP 116/60 03/31/24 11:41 Pulse Ox 94 03/31/24 11:41 Oxygen Delivery Method Room Air 03/31/24 11:41 BMI result Body Mass Index 33.1 Tobacco/Smoking Status: Tobacco use Status Tobacco use date assessed 10/04/23 03/31/24 11:44 Patient Tobacco Use Status Former Tobacco user 03/31/24 11:44 e-Cigarette/Vaping Use Never Used 03/31/24 11:44 Thrive Assessment: Date of Thrive Assessment Date Thrive assessed 10/04/23 03/31/24 11:44 Const General: well developed; No acute distress Nutritional Appearance: well nourished Orientation/consciousness: patient oriented x3 HENMT Head: Yes normocephalic and Yes atraumatic Eyes General: appearance normal, both eyes and all related structures Pupils: Equal, round and reactive pupils present EOM: EOMs intact bilaterally Resp Effort & Inspection: normal respiratory effort Auscultation: clear to auscultation bilaterally Cardio Rate: regular rate Rhythm: regular rhythm Heart sounds: S1 normal heart sound present, S2 normal heart sound present, no gallops, no murmurs and no rubs Neuro General: patient oriented x3 and gait normal Cranial nerves: Yes Equal, round and reactive pupils present Psych Affect: normal affect Results AMB Hemoglobin A1c AMB Hemoglobin A1c 6.4 % Last Edit by Mario Bland on 03/31/24 12:24 Results Reviewed Results Reviewed: Laboratory Last Values Hgb A1c (Clinic) 6.4 % (4.0-6.0) H 03/31/24 12:12 Assessment and Plan Assessment & Plan (1) Essential hypertension: Code(s): I10 - Essential (primary) hypertension Plan: Blood?pressure?is?controlled.??Goal?is?less?than?130/80 Continue?current?medications (2) Diabetes type 2, controlled: Code(s): E11.9 - Type 2 diabetes mellitus without complications Qualifiers: Diabetes mellitus longterm insulin use: 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 ?Good?control.??Goal?is?less?than?7.0% Continue?current?medication?regimen Encouraged?diet?low?in?sugars?and?starches Encouraged?exercise (3) Atherosclerotic cardiovascular disease: Code(s): I25.10 - Atherosclerotic heart disease of tribal coronary artery without angina pectoris Plan: Stable Follow-up?with?Cardiology?as?recommended Plan Follow-up in 3 months for diabetes and hypertension Orders: Orders AMB Hemoglobin A1c 03/31/24 Z13.9 - Encounter for screening, unspecified Coding Level of Care Code Est Pt Level 3 (39905) Diagnoses Essential hypertension I10 Diabetes type 2, controlled E11.9 Diabetes mellitus longterm insulin use: without longterm use Atherosclerotic cardiovascular disease I25.10
[2024-03-31 11:41] VITALS: BP 116/60; PULSE 77; RESP 16; TEMP 36.6; O2SAT 94; BMI 33.1
== END 2024-03-31 12:13 | disposition home or self-care (01) ==
PROVIDERS: PCP Family Medicine; Visit Provider Family Medicine
DX: E11.9 Type 2 diabetes mellitus without complications (principal)
CPT/HCPCS: 83036; 99213

== ENCOUNTER 2024-04-27 20:58 | Inpatient (IN) | payer MEDICARE, SELFPAY ==
--- OUTSIDE RECORDS SUMMARY | 2024-04-27 21:02 | XMS_ITS | Continuity of Care Document ---
Author Organization [facility] Address [address] [place] [address]- Care Team Providers Care Web Site Project Manager Name Role Phone Shanita SANTIAGO, eDnis Hui Primary Care Physician Encounter [facility] Date(s): 04/18/21 - 05/18/21 [facility] [address] [place] [id number]- [place] Allergies, Adverse Reactions, Alerts Substance Reaction Severity Status lisinopril facial swelling Persistent Severe Active Nuts anaph. throat swelling face swelling Active Other Food Allergy anaph. peanuts, legumes throat swelling face swelling Active Percocet 5/325 joint darío Active Immunizations Given and Recorded Vaccine Date Status Refusal Reason pneumococcal 23-valent vaccine 03/16/12 Given Medications Advair Diskus 500 mcg-50 mcg inhalation powder 1, inhalation, Inhalation, 2 times a day, rinse mouth and throat after use, # 1 each, Refills 5, Tot. Refills 5, Maintenance, 04/18/21 11:57:00 EDT, Powder, Route to Pharmacy Electronically, [id number], [facility]... Start Date: 04/18/21 Status: Ordered amLODIPine 10 mg oral tablet 10 mg, 1, tablet, By Mouth, Daily, # 90 tablet, Refills 0, Maintenance, 01/23/20 10:59:00 EDT Start Date: 01/23/20 Status: Ordered chlorthalidone 25 mg oral tablet 25 mg, 1, tablet, By Mouth, Daily, Refills 0, Maintenance, 01/23/20 11:04:00 EDT Start Date: 01/23/20 Status: Ordered Incruse Ellipta 62.5 mcg/inh inhalation powder = 62.5 mcg, Inhalation, Every 24 hours, doses should be taken at least 24 hours apart, # 1 box, 11 Refills, Maintenance, 01/17/18 11:00:00 EDT, Powder Start Date: 01/17/18 Stop Date: 01/12/19 Status: Ordered latanoprost 0.005% ophthalmic solution 1 drops, Daily in PM, left eye, # 2.5 mL, 0 Refills, Maintenance, 01/12/20 3:04:00 EDT, Solution Start Date: 01/12/20 Status: Ordered metformin 750 mg oral tablet, extended release = 1,000 mg, By Mouth, 2 times a day, 0 Refills, Maintenance, 03/15/12 3:49:06 EDT Start Date: 03/15/12 Status: Ordered potassium chloride 10 mEq oral tablet, extended release 1 tablet = 10 mEq, By Mouth, 2 times a day, # 8 tablet, 0 Refills, Maintenance, 05/09/20 9:43:00 EDT, ER Tablet, [facility], 167, cm, 01/29/20 10:11:00 EDT, Height, 106.4, kg, 01/28/20 16:34:00 EDT, Dry Weight Start Date: 05/09/20 Stop Date: 05/13/20 Status: Ordered ProAir HFA 90 mcg/inh inhalation aerosol with adapter 2, puffs, Inhalation, Every 4 hours, PRN, use with spacer chamber, j44.9, # 1 each, Refills 3, Tot.Refills 3, Maintenance, 02/03/21 16:02:00 EDT, Aerosol, Route to Pharmacy Electronically, [id number], [facility] #7... Start Date: 02/03/21 Status: Ordered rosuvastatin 10 mg oral tablet 1 tablet = 10 mg, By Mouth, Daily, # 30 tablet, 0 Refills, Maintenance, 01/06/17 6:11:13, Tablet Start Date: 01/06/17 Status: Ordered tamsulosin 0.4 mg oral capsule 2 capsule = 0.8 mg, By Mouth, Daily at supper, 0 Refills, Maintenance, 04/14/14 14:45:46 EDT Start Date: 04/14/14 Status: Ordered Problem List Condition Effective Dates Status Health Status Inform ant COPD, group B, by GOLD 2017 classification(Confirmed) Active MISTY on CPAP(Confirmed) Active Social History Social History Type Response Smoking Status Former smoker; Tobac co user in household: No; Other: pt states he quit smoking about 24 years ago 1991; entered on: 04/06/16 Sex
--- OUTSIDE RECORDS SUMMARY | 2024-04-27 21:02 | XMS_ITS | Continuity of Care Document ---
Author Organization [facility] Address [address] [place] [id number]- Care Team Providers Care Tube Carrier Name Role Phone Shanita SANTIAGO, Denis Hui Primary Care Physician Encounter [facility] [id number] Date(s): 10/13/22 - 11/12/22 [facility] [address] [place] [id number] Attending Physician: Josiah Kowalski Admitting Physician: Josiah Kowalski Referring Physician: Josiah Kowalski Allergies, Adverse Reactions, Alerts Substance Reaction Severity Status lisinopril Lip Swelling facial swelling Persistent Severe Active Nuts anaph. throat swelling face swelling Active Other Food Allergy anaph. peanuts, legumes throat swelling face swelling Active Percocet 5/325 joint darío Active Immunizations Given and Recorded Vaccine Date Status Refusal Reason pneumococcal 23-valent vaccine 03/16/12 Given Medications amLODIPine 10 mg oral tablet 20 mg, 2, tablet, By Mouth, Daily, # 90 tablet, Refills 0, Maintenance, 01/23/20 10:59:00 EDT Start Date: 01/23/20 Status: Ordered aspirin 81 mg oral delayed release tablet 81 mg, 1, tablet, By Mouth, Daily, # 90 tablet, Refills 0, Maintenance, 10/26/22 14:29:00 EST, Partial fill upon patient request if the prescription is for a schedule II opioid drug. Start Date: 10/26/22 Status: Ordered Breztri Aerosphere inhalation aerosol 2 puffs, Inhalation, 2 times a day, rinse mouth and throat after use, # 1 each, 6 Refills, Maintenance, 09/01/22 9:22:00 EST, Aerosol, [facility], Replacing [place] and Incruse., 2puffs Inhalation 2 times a day,Instr:rinse mouth and th... Start Date: 09/01/22 Status: Ordered Breztri Aerosphere inhalation aerosol 2 puffs, Inhalation, 2 times a day, rinse mouth and throat after use, # 5.9 Gm, 0 Refills, Maintenance, 10/26/22 14:32:00 EST, Aerosol, Partial fill upon patient request if the prescription is for a schedule II opioid drug. Start Date: 10/26/22 Status: Ordered chlorthalidone 25 mg oral tablet 50 mg, 2, tablet, By Mouth, Daily, Refills 0, Maintenance, 01/23/20 11:04:00 EDT Start Date: 01/23/20 Status: Ordered EpiPen 2-Jefferson 0.3 mg injectable kit = 0.3 mg, Intramuscular, Once, # 1 kit, 0 Refills, Soft Stop, 11/09/22 18:50:00 EDT, [facility], Partial fill upon patient request if the prescription is for a schedule II opioid drug., 173, cm, 11/09/22 17:53:00 EDT, Height, 95.4, kg,... Start Date: 11/09/22 Status: Ordered Fiber Choice 1.5 g oral tablet, chewable 1 tablet = 1.5 Gm, Chew, 2 times a day, # 90 tablet, 0 Refills, Maintenance, 10/26/22 14:41:00 EST,Chew Tablet, Partial fill upon patient request if the prescription is for a schedule II opioid drug. Start Date: 10/26/22 Status: Ordered magnesium oxide 400 mg oral tablet 1 tablet = 400 mg, By Mouth, Daily, # 14 tablet, 0 Refills, Maintenance, 10/26/22 14:40:00 EST, Tablet, Partial fill upon patient request if the prescription is for a schedule II opioid drug. Start Date: 10/26/22 Status: Ordered metFORMIN 1000 mg oral tablet 1 tablet = 1,000 mg, By Mouth, 2 times a day, # 60 tablet, 0 Refills, Maintenance, 10/26/22 14:31:00 EST, Tablet, Partial fill upon patient request if the prescription is for a schedule II opioid drug. Start Date: 10/26/22 Status: Ordered ProAir HFA 90 mcg/inh inhalation aerosol with adapter 2, puffs, Inhalation, Every 4 hours, PRN, USE WITH SPACER CHAMBER., # 8.5 Gm, Refills 3, Route to Pharmacy Electronically, [id number], [facility], 172, cm, 09/07/21 15:02:00 EST, Height Start Date: 02/17/22 Status: Ordered rosuvastatin 10 mg oral tablet 1 tablet = 10 mg, By Mouth, Daily, # 30 tablet, 0 Refills, Maintenance, 01/06/17 6:11:13, Tablet Start Date: 01/06/17 Status: Ordered tamsulosin 0.4 mg oral capsule 1 capsule = 0.4 mg, By Mouth, 2 times a day, 0 Refills, Maintenance, 04/14/14 14:45:46 EDT Start Date: 04/14/14 Status: Ordered vitamin E 400 iu oral capsule 1 capsule = 400 International_Units, By Mouth, Daily, # 30 capsule, 0 Refills, Maintenance, 10/26/22 14:39:00 EST, Capsule, Partial fill upon patient request if the prescription is for a schedule II opioid drug. Start Date: 10/26/22 Status: Ordered Zioptan 0.0015% ophthalmic solution INSTILL ONE DROP IN BOTH EYES AT BEDTIME DIRECTED Start Date: 09/07/21 Status: Ordered ZyrTEC 10 mg oral tablet 1 tablet = 10 mg, By Mouth, Daily, # 90 tablet, 0 Refills, Maintenance, 11/09/22 18:50:00 EDT, Tablet, [facility], Partial fill upon patient request if the prescription is for a schedule II opioid drug., 173, cm, 11/09/22 17:53:00 EDT,... Start Date: 11/09/22 Status: Ordered Problem List Condition Confirmation Course Effective Dates Status H ealth Status Informant COPD, group B, by GOLD 2017 classification Confirmed Active Obese class I Confirmed Active MISTY on CPAP Confirmed Active Social History Social History Type Response Smoking Status Former smoker; Tobac co user in household: No; Other: pt states he quit smoking about 24 years ago 1991; entered on: 04/06/16 Sex Patient Care team information Care Team Personnel Name: Altagracia Fritz RN Position: [facility] RN Member Role: Primary Care Nurse Name: Shannen Molina RN Position: [facility] SN RN Member Role: Primary Care Nurse Name: Denis Diehl MD Position: [facility] Outreach Member Role: PCP Address: Address: [address] [place] [id number] Name: Nura Mobley RN Position: [facility] RN Member Role: Primary Care Nurse Name: Sara Valencia Position: [facility] Outreach Member Role: Primary Care Nurse Name: Siobhan Ballesteros RN Position: [facility] RN Member Role: Primary Care Nurse Care Team Related Persons Name: SONAM STERN Address: home [address] [place] [address] Name: ELY SANTANA Address: home [address] [place] [address]
--- OUTSIDE RECORDS SUMMARY | 2024-04-27 21:02 | XMS_ITS | Continuity of Care Document ---
Author Organization [facility] ter Address [address] [place] [address]- Care Team Providers Care Industrial Engineering Name Role Phone Shanita SANTIAGO, Denis Hui Primary Care Physician Encounter [facility] Date(s): 06/14/23 - 07/20/[address] [address]- Attending Physician: David Cheney MD Admitting Physician: David Cheney MD Referring Physician: Hortensia Hargrove DO Allergies, Adverse Reactions, Alerts Substance Reaction Severity Status Percocet 5/325 joint darío Active lisinopril Lip Swelling facial swelling Persistent Severe Active Nuts anaph. throat swelling face swelling Active Other Food Allergy anaph. peanuts, legumes throat swelling face swelling Active Immunizations Given and Recorded Vaccine Date Status Refusal Reason pneumococcal 23-valent vaccine 03/16/12 Given Medications Albuterol (Eqv-ProAir HFA) 90 mcg/inh inhalation aerosol 2 puffs, Inhalation, Every 4 hours, PRN NEEDED FOR WHEEZING, USE WITH SPACER CHAMBER., # 8.5 Unknown, 3 Refills, Maintenance, 12/06/22 16:56:00 EDT, [facility], 25, INHALE 2 PUFFS BY MOUTH EVERY 4 HOURS NEEDED FOR WHEEZING. USE WI... Start Date: 12/06/22 Status: Ordered amLODIPine 10 mg oral tablet 20 mg, [...] opioid drug. Start Date: 10/26/22 Status: Ordered atorvastatin 10 mg oral tablet 1 tablet = 10 mg, By Mouth, Daily, pt unsure of dose, 0 Refills, Maintenance, 04/20/23 20:17:00 EDT, Partial fill upon patient request if the prescription is for a schedule II opioid drug. Start Date: 04/20/23 Status: Ordered Breztri Aerosphere inhalation aerosol 2 puffs, Inhalation, 2 times a day, RINSE MOUTH AND THROAT AFTER USE, # 10.7 Gm, 6 Refills, Maintenance, 06/26/23 11:09:00 EST, [facility], 30, INHALE TWO PUFFS BY MOUTH TWICE A DAY . RINSE MOUTH AND THROAT AFTER USE, 174, cm, 05/08/23... Start Date: 06/26/23 Status: Ordered chlorthalidone 25 mg oral tablet [...] opioid drug. Start Date: 10/26/22 Status: Ordered tamsulosin 0.4 mg oral capsule [...] Team Personnel Name: Altagracia Fritz RN Position: S RN Member Role: Primary Care Nurse Name: Shannen Molina RN Position: [facility] RN Member Role: Primary Care Nurse Name: Denis Diehl MD Position: [facility] Outreach Member Role: PCP Address: Address: [address] [place] [address]- [place] Name: Nura Mobley RN Position: [facility] RN Member Role: Primary Care Nurse Name: Sara Valencia Position: [facility] Outreach Member Role: Primary Care Nurse Name: Lin Hicks RN Position: [facility] RN Member Role: Primary Care Nurse Name: Altagracia Boss RN Position: [facility] RN Member Role: Primary Care Nurse Name: Siobhan Ballesteros RN Position: [facility] AMB Nurse Member Role: Primary Care Nurse Name: Sara Sam RN Position: [facility] RN Member Role: Primary Care Nurse Name: Abeba Devine LPN Position: [facility] RN Member Role: Primary Care Nurse Care Team Related Persons Name: SONAM STERN Address: home [address] [place] [address] Name: ELY SANTANA Address: home [address] [place] [address]
--- OUTSIDE RECORDS SUMMARY | 2024-04-27 21:02 | XMS_ITS | Continuity of Care Document ---
Author Organization [facility] ter Address [address] [place] [address]- Care Team Providers Care Route Manager Name Role Phone Denis Diehl MD Primary Care Physician [phone] Encounter [facility] Date(s): 09/18/19 - 12/10/[address] [address] [place] Attending Physician: Taqueria Conner MD Admitting Physician: Taqueria Conner MD Allergies, Adverse Reactions, Alerts Substance Reaction Severity Status lisinopril Persistent Severe Active Nuts throat swelling face swelling Active Other Food Allergy throat swelling face swelling Active Percocet 5/325 Active Immunizations Given and Recorded Vaccine Date Status Refusal Reason pneumococcal 23-valent vaccine 03/16/12 Given Medications Advair Diskus 500 mcg-50 mcg inhalation powder 1, puffs, Inhalation, 2 times a day, rinse mouth and throat after use, # 60 each, Refills 11, Tot. Refills 11, Maintenance, 06/25/18 11:19:56 EST, Powder, Route to Pharmacy Electronically, [id number], [facility]... Start Date: 06/25/18 Stop Date: 06/20/19 Status: Ordered amLODIPine 5 mg oral tablet 5 mg, By Mouth, Daily, # 30 tablet, Refills 0, Tot. Refills 0, Soft Stop, 11/13/15 9:51:57, Route to Pharmacy Electronically, [id number], [facility] Start Date: 3/26/16 Stop Date: 12/13/15 Status: Ordered Aspir 81 1 each, By Mouth, Daily, 0 Refills, Soft Stop, 04/25/09 23:37:07 EDT Start Date: 04/25/09 Stop Date: 05/25/09 Status: Ordered Crestor 10 mg oral tablet 1 tablet = 10 mg, By Mouth, Daily, # 30 tablet, 0 Refills, Maintenance, 11/12/15 13:43:56, Tablet Start Date: 11/12/15 Status: Ordered famotidine 20 mg oral tablet 20 mg, 1, tablet, By Mouth, 2 times a day, # 10 tablet, Refills 0, Tot. Refills 0, Maintenance, 11/13/15 9:51:51, Route to Pharmacy Electronically, [id number], [facility] Start Date: 11/13/15 Stop Date: 11/18/15 Status: Ordered Fish Oil By Mouth, Daily, 0 Refills, Maintenance, 04/05/15 10:48:23 EDT Start Date: 04/05/15 Status: Ordered HydroCHLOROthiazide Tablet 12.5 mg, By Mouth, Daily, 04/25/09 23:36:49 Start Date: 04/25/09 Stop Date: 05/25/09 Status: Ordered Incruse Ellipta 62.5 mcg/inh inhalation powder = 62.5 mcg, Inhalation, Every 24 hours, doses should be taken at least 24 hours apart, # 1 box, 11 Refills, Maintenance, 01/17/18 11:00:00 EDT, Powder Start Date: 01/17/18 Stop Date: 01/12/19 Status: Ordered Medrol Dosepak 4 mg oral tablet See Instructions, as directed on package labeling, # 1 pack/packet, 0 Refills, Soft Stop, 11/13/15 9:52:13, Tablet Start Date: 11/13/15 Status: Ordered metformin 750 mg oral tablet, extended release 1 tablet = 750 mg, By Mouth, Daily, 0 Refills, Maintenance Start Date: 03/15/12 Status: Ordered metoprolol 50 mg oral tablet 50 mg, 1, tablet, By Mouth, 2 times a day, # 180 tablet, Refills 0, Maintenance, 11/12/15 13:43:36 Start Date: 11/12/15 Status: Ordered Multivitamin By Mouth, Daily, 0 Refills, Maintenance, 04/05/15 10:48:11 Start Date: 04/05/15 Status: Ordered Potassium Chloride 2 tablets, By Mouth, Daily, 0 Refills, Maintenance, 04/05/15 10:48:28 EDT Start Date: 04/05/15 Status: Ordered ProAir HFA 90 mcg/inh inhalation aerosol with adapter 2, puffs, Inhalation, Every 4 hours, PRN, use with spacer chamber, # 3 each, Refills 1, Tot. Refills 1, Maintenance, 08/08/19 12:01:00 EST, Aerosol, Route to Pharmacy Electronically, [id number], [facility], ICD... Start Date: 08/08/19 Stop Date: 02/04/20 Status: Ordered ProAir HFA 90 mcg/inh inhalation aerosol with adapter 2, puffs, Inhalation, Every 6 hours, PRN, use with spacer chamber, # 1 each, Refills 11, Tot. Refills 11, Maintenance, 06/25/18 11:10:09 EST, Aerosol, Route to Pharmacy Electronically, [id number], [facility] Start Date: 06/25/18 Stop Date: 06/20/19 Status: Ordered rosuvastatin 10 mg oral tablet 1 tablet = 10 mg, By Mouth, Daily, # 30 tablet, 0 Refills, Maintenance, 01/06/17 6:11:13, Tablet Start Date: 01/06/17 Status: Ordered tamsulosin 0.4 mg oral capsule 1 capsule = 0.4 mg, By Mouth, Daily, 0 Refills, Maintenance, 04/14/14 14:45:46 Start Date: 04/14/14 Status: Ordered Zetia 10 mg oral tablet 1 tablet = 10 mg, By Mouth, Daily, # 30 tablet, 0 Refills, Maintenance, 11/12/15 13:44:12, Tablet Start Date: 11/12/15 Status: Ordered Problem List Condition Effective Dates Status Health Status Inform ant COPD, group B, by GOLD 2017 classification(Confirmed) Active MISTY on CPAP(Confirmed) Active Social History Social History Type Response Smoking Status Former smoker; Tobac co user in household: No; Other: pt states he quit smoking about 24 years ago 1991; entered on: 04/06/16 Sex
--- OUTSIDE RECORDS SUMMARY | 2024-04-27 21:02 | XMS_ITS | Continuity of Care Document ---
Author Organization [facility] ter Address [address] [place] [id number]- Care Team Providers Care Channel Director Name Role Phone Denis Diehl MD Primary Care Physician [phone] Encounter [facility] Date(s): 12/18/19 - 02/20/[address] [address]- [facility] Attending Physician: Taqueria Conner MD Allergies, Adverse Reactions, Alerts Substance Reaction Severity Status lisinopril facial swelling Persistent Severe Active Nuts anaph. throat swelling face swelling Active Other Food Allergy anaph. peanuts, legumes throat swelling face swelling Active Percocet 5/325 joint darío Active Immunizations Given and Recorded Vaccine Date Status Refusal Reason pneumococcal 23-valent vaccine 03/16/12 Given Medications amLODIPine 10 mg oral tablet 10 mg, 1, tablet, By Mouth, Daily, # 90 tablet, Refills 0, Maintenance, 01/23/20 10:59:00 EDT Start Date: 01/23/20 Status: Ordered Aspir 81 1 each, By Mouth, Daily, 0 Refills, Soft Stop, 04/25/09 23:37:07 EDT Start Date: 04/25/09 Stop Date: 05/25/09 Status: Ordered chlorthalidone 25 mg oral tablet [...] Refills, Maintenance Start Date: 03/15/12 Status: Ordered ProAir HFA 90 mcg/inh inhalation aerosol with adapter 2, puffs, Inhalation, Every 4 hours, PRN, use with spacer chamber, # 3 each, Refills 1, Tot. Refills 1, Maintenance, 08/08/19 12:01:00 EST, Aerosol, Route to Pharmacy Electronically, [id number], [id number], ICD... Start Date: 08/08/19 Stop Date: 02/04/20 Status: Ordered rosuvastatin 10 mg oral tablet 1 tablet = 10 mg, By Mouth, Daily, # 30 tablet, 0 Refills, Maintenance, 01/06/17 6:11:13, Tablet Start Date: 01/06/17 Status: Ordered tamsulosin 0.4 mg oral capsule 2 capsule = 0.8 mg, By Mouth, Daily at supper, 0 Refills, Maintenance, 04/14/14 14:45:46 EDT Start Date: 04/14/14 Status: Ordered Wixela Inhub 100 mcg-50 mcg inhalation powder 1 inhalation, Inhalation, 2 times a day, 0 Refills, Maintenance, 01/23/20 11:00:00 EDT Start Date: 01/23/20 Status: Ordered Problem List Condition Effective Dates Status Health Status Inform ant COPD, group B, by GOLD 2017 classification(Confirmed) Active MISTY on CPAP(Confirmed) Active Social History Social History Type Response Smoking Status Former smoker; Tobac co user in household: No; Other: pt states he quit smoking about 24 years ago 1991; entered on: 04/06/16 Sex
--- OUTSIDE RECORDS SUMMARY | 2024-04-27 21:02 | XMS_ITS | Continuity of Care Document ---
Author Organization [facility] Address [address] [place] [address]- Care Team Providers Care Director Of Software Development Name Role Phone Shanita SANTIAGO, Denis Hui Primary Care Physician [phone] [place] [facility] [place] 03/08/20 [facility] [address] [place] [address]- [facility] Attending Physician: Josiah Kowalski Admitting Physician: AdmJosiah guillermo Referring Physician: AdmtrJosiah Allergies, Adverse Reactions, Alerts Substance Reaction Severity Status lisinopril facial swelling Persistent Severe Active Nuts anaph. throat swelling face swelling Active Percocet 5/325 joint darío Active Other Food Allergy anaph. peanuts, legumes [...] 12:01:00 EST, Aerosol, Route to Pharmacy Electronically, [id number], [id number], ICD... Start [...]
--- OUTSIDE RECORDS SUMMARY | 2024-04-27 21:02 | XMS_ITS | Continuity of Care Document ---
Author Organization [facility] ter Address [address] [place] [id number] Care Team Providers Care Apprenticeship Training Representative Name Role Phone Shanita SANTIAGO, Denis Hui Primary Care Physician Encounter [facility] Date(s): 05/06/23 - 05/08/[address] [id number] Discharge Disposition: A-D/C Home Attending Physician: Fredis Gramajo MD Admitting Physician: Eduar Ham MD Referring Physician: Not on Staff, Referring MD Allergies, Adverse Reactions, Alerts Substance Reaction [...] opioid drug. Start Date: 10/26/22 Status: Ordered hydrALAZINE 25 mg oral tablet 50 mg, Tablet, By Mouth, 05/08/23 9:00:00 EDT Start Date: 05/08/23 Stop Date: 05/08/23 Status: Completed magnesium oxide 400 mg oral tablet 1 [...] opioid drug. Start Date: 10/26/22 Status: Ordered Norvasc 10 mg oral tablet 10 mg, Tablet, By Mouth, 05/08/23 9:00:00 EDT Start Date: 05/08/23 Stop Date: 05/08/23 Status: Completed tamsulosin 0.4 mg oral capsule 1 capsule [...] Confirmed Active MISTY on CPAP Confirmed Active Results Orders for Microbiology Reports Name Date Blood Culture 05/06/23 Blood Culture #2 05/06/23 Urine Culture 05/06/23 Microbiology Reports TEST:Urine Culture STATUS:Auth (Verified) BODY SITE: SOURCE:URINE COLLECTED DATE/TIME:05/06/23 2:28 PM Urine Culture SPECIMEN DESCRIPTION : URINE CLEAN CATCH/MIDSTREAM SPECIAL REQUESTS : NONE CULTURE : NO GROWTH REPORT STATUS : FINAL 05/07/2023 TEST:Blood Culture STATUS:Unauthenticated BODY SITE: SOURCE:Blood COLLECTED DATE/TIME:05/06/23 1:16 PM Blood Culture SPECIMEN DESCRIPTION : BLOOD NO SITE SPECIAL REQUESTS : NONE CULTURE : NO GROWTH AFTER 48 HOURS REPORT STATUS : PRELIMINARY REPORT TEST:Blood Culture, Second Order STATUS:Unauthenticated BODY SITE: SOURCE:Blood COLLECTED DATE/TIME:05/06/23 1:16 PM Blood Culture, Second Order SPECIMEN DESCRIPTION : BLOOD NO SITE SPECIAL REQUESTS : NONE CULTURE : NO GROWTH AFTER 48 HOURS REPORT STATUS : PRELIMINARY REPORT Radiology Reports * Exam Date Time Procedure Performing Provider Status 05/05/23 11:51 PM Chest 2 Views Frontal and Lat Max Boone; Auth (Verified) Notes: (Chest 2 Views Frontal and Lat) Reason For Exam: Shortness of Breath, Fever;Other: RESULT: Chest 2 Views Frontal and Lat Chest 2 Views Frontal and Lat Hx of Present Illness: SOB started this AM 9 16 with hx of COPD. 90% on RA. From home, lives by himself. Denies CP per EMS. Progessively worsening SOB throughout the day.; Reason: Other:; Shortness of Breath, Fever; Clinical Question(s): Pneumonia COMPARISON: None. FINDINGS: LINES AND TUBES: None. LUNGS AND PLEURA: Low lung volumes with mild basilar atelectasis. Lungs are otherwise clear with no consolidation. No pleural effusion. No pneumothorax. HEART, MEDIASTINUM AND DELANO: Heart is normal in size. Normal mediastinal and hilar contour. BONES AND SOFT TISSUES: No acute abnormality. IMPRESSION: No acute abnormality. WSN: [id number] Ordering Physician: Marcel Kinney Dictated By: Bakari Carlos MD Dictated Date/Time: 05/06/23 7:11 am Reviewed By: Bakari Carlos MD Signed By: Bakari Carlos MD Signed Date/Time: 05/06/23 7:11 am Transcribed By: CECILY Transcribed Date/Time: 05/06/23 7:10 am Vital Signs Most recent to oldest [Reference Range]: 1 2 3 Height 174 cm (05/08/23 3:31 AM) 174 cm (05/07/23 11:17 PM) 174 cm (05/07/23 7:39 PM) Weight 97.7 kg (05/06/23 4:01 PM) Oxygen Saturation [94-100 %] 94 % (05/08/23 7:00 AM) 96 % (05/08/23 3:31 AM) 97 % (05/07/23 11:17 PM) Pulse Rate [55-90 bpm] 81 bpm (05/08/23 7:00 AM) 63 bpm (05/08/23 3:31 AM) 77 bpm (05/07/23 11:17 PM) Body Mass Index [18.5-24.99 kg/m2] 32.27 kg/m2 *>HHI* (05/06/23 4:01 PM) Blood Pressure [90-138/55-84 mm Hg] 118/62mm Hg (05/08/23 8:57 AM) 118/62mm Hg (05/08/23 8:57 AM) 118/62mm Hg (05/08/23 7:00 AM) Respiratory Rate [16-30 br/min] 20 br/min (05/08/23 7:00 AM) 18 br/min (05/08/23 7:00 AM) 20 br/min (05/08/23 3:31 AM) Temperature [96.8-100.4 DegF] 97.6 DegF (05/08/23 7:00 AM) 98.2 DegF (05/08/23 3:31 AM) 97.8 DegF (05/07/23 11:17 PM) Liters per Minute 2 L/min (05/06/23 7:51 PM) 2 L/min (05/06/23 4:01 PM) 3 L/min (05/06/23 3:54 PM) Mode of Delivery (Oxygen) Room air (05/08/23 3:07 PM) Room air (05/08/23 7:00 AM) CPAP (05/08/23 3:31 AM) Blood pressure sites Arm, left (05/08/23 3:07 PM) Arm, right (05/08/23 7:00 AM) Arm, right (05/08/23 3:31 AM) Temperature Route Oral (05/08/23 3:07 PM) Oral (05/08/23 7:00 AM) Axillary (05/08/23 3:31 AM) Dry Weight 97.7 kg (05/06/23 4:01 PM) Social History Social History Type Response Smoking Status Former smoker; Tobac co user in household: No; Other: pt states he quit smoking about 24 years ago 1991; entered on: 04/06/16 Sex History and physical note * Eduar Ham MD: PERFORM Event Display: History and Physical Hospital Authored Date: Patient: ??EDE SANTANA ? Age:??77 Years?Sex:??Male?:??1945?? Chief Complaint/Reason for Consultation SOB started this AM 05/05 with hx of COPD. 90% on RA. From home, lives by himself. Denies CP per EMS. Progessively worsening SOB throughout the day. History of Present Illness 77-year-old male presents emergency room complaining of shortness of breath. ??He tells me that??hestarted feeling short of breath yesterday. ??He has chronic shortness of breath but it worsened yesterday.?? He is also been feeling fatigued and had a poor appetite.?? He was recently admitted to??an outside hospital 3 weeks ago with hematuria. ??He underwent cystoscopy by urology??and temporarilyhad a Pedraza catheter placed which was subsequently removed by PCP.?? Over the last week or so he has been having??frequency with small amounts of urine passed. ??He denies any current hematuria or dysuria.?? He also denies any cough, chest pain, abdominal pain, vomiting, diarrhea. ??In the emergency room there was concern for possible pneumonia and he was started on ceftriaxone and azithromycin.?? However subsequent UA came back positive and his chest x-ray does not reveal any infiltrate. ? EKG: Sinus rhythm 101 bpm Right bundle branch block ? RESULT: Chest 2 Views Frontal and Lat Chest 2 Views Frontal and Lat?? FINDINGS: IMPRESSION: No acute abnormality. Review of Systems Constitutional:??Fatigue Eyes:??No visual loss, blurred vision, double vision or yellow sclera ENT:??No hearing loss, sneezing, congestion, runny nose or sore throat. Respiratory:??No shortness of breath, cough or sputum production. Cardiovascular:??No chest pain, chest pressure or chest discomfort. No palpitations or pedal edema. Gastrointestinal:??No anorexia, nausea, vomiting or diarrhea. No abdominal pain or blood in stool. Genitourinary:??Frequency Neurologic:??No headache, dizziness, syncope, unilateral weakness, ataxia, numbness or tingling in the extremities. Musculoskeletal:??No muscle pain, back pain, joint pain or stiffness. Skin:??No rash or itching. Endocrine:??No reports of sweating. No cold or heat intolerance. No polyuria or polydipsia. Psychiatric:??No depression or anxiety. Objective ? Vital Signs?? Temperature: 99.1 DegF (05/06/23 06:38:00) Temperature Route: Oral (05/06/23 06:38:00) Pulse Rate: 89 bpm (05/06/23 06:38:00) Respiratory Rate: 20 br/min (05/06/23 06:38:00) Systolic Blood Pressure:??146 mm Hg??High (05/06/23 06:38:00) Diastolic Blood Pressure:??52 mm Hg??Low (05/06/23 06:38:00) Blood pressure sites: Arm, right (05/06/23 06:38:00) Mean Arterial Pressure: 83 mm Hg (05/06/23 06:38:00) Pulse Pressure: 94 mm Hg (05/06/23 06:38:00) Oxygen Saturation: 96 % (05/06/23 06:38:00) Liters per Minute: 2 L/min (05/06/23 03:30:00) Mode of Delivery (Oxygen): Room air (05/06/23 06:38:00) Early Warning Score: 4 (05/06/23 06:39:16) ? Physical Exam Constitutional: Alert, in no distress. Mental Status: Oriented to person, place and time. Head: Normocephalic. Eyes: Pupils are equal, round and reactive to light. Extraocular muscles intact. Ear, Nose and Throat: Oropharynx clear, mucous membranes moist. Ears and nose without masses, lesions or deformities. Trachea midline. Neck: Supple, Full range of motion. Respiratory: Scattered rhonchi Cardiovascular: S1 S2 regular. No murmurs, rubs or gallops. Gastrointestinal: Abdomen soft, non-tender, non-distended. Normal bowel sounds. Neurologic: Cranial nerves II-XII grossly intact. No focal neurological deficits. Flexor plantar response. Moves all extremities spontaneously. Sensation intact bilaterally. Skin: No rashes or lesions. No petechiae or purpura.?? Musculoskeletal: No cyanosis or clubbing. No gross deformities. Normal range of motion. Psychiatric: Normal mood and affect Assessment/Plan 77-year-old male admitted with shortness of breath,??elevated troponin and a UTI ? UTI (urinary tract infection) (N39.0):??. As noted above he was recently admitted to an outside hospital and underwent cystoscopy and had a Pedraza catheter placed.?? This was removed by his PCP as an outpatient. He now complains of frequency and only passing small amounts of urine UA this evening is positive for UTI Blood culture sent from the ER Continue ceftriaxone Bladder scan??every 6 and straight cath as needed ? Shortness of breath (R06.02):??. MISTY on CPAP (G47.33):??. COPD exacerbation (J44.1):??. ??No clear pneumonia on chest x-ray He does have a long history of COPD and MISTY??which are likely contributing CPAP at bedtime We will give a pulse of prednisone Updraft scheduled and as needed If not improving consider??CTA ? Diabetes: Sliding scale ? Troponin: Has been elevated but flat No chest pain EKG nonischemic Doubt acute ischemia Continue to trend ? Hypertension: Continue Norvasc,??hydralazine, chlorthalidone ? VTE Prophylaxis:??. Heparin subcu ? Code Status:??. Full code Confirmed with patient at bedside ? Patient seen??05/06/2023 ? Histories Allergies Allergies ?(Active and Proposed Allergies Only) lisinopril? (Severity: Persistent Severe, Onset: Unknown) ?Reactions: facial swelling, Lip Swelling Other Food Allergy? (Severity: Unknown severity, Onset: Unknown) ?Reactions: face swelling, throat swelling, anaph., peanuts, legumes Nuts? (Severity: Unknown severity, Onset: Unknown) ?Reactions: face swelling, throat swelling, anaph. Percocet 5/325? (Severity: Unknown severity, Onset: Unknown) ?Reactions: joint darío ? Past Medical History/Problem List Active Problems??(3) COPD, group B, by GOLD 2017 classification Obese class I MISTY on CPAP Hypertension Diabetes Left ankle ORIF ? Social History Patient lives alone Non-smoker Occasional alcohol ? Family History Negative for CAD ? Medications Home Medications Albuterol (Albuterol (Eqv-ProAir HFA) 90 mcg/inh inhalation aerosol)?2?puff(s)?Inhalation?Every 4 hours?as needed? NEEDED FOR WHEEZING?USE WITH SPACER CHAMBER. Amlodipine (amLODIPine 10 mg oral tablet)?20?Milligram?2?tablet?By Mouth?Daily Aspirin (aspirin 81 mg oral delayed release tablet)?81?Milligram?1?tablet?By Mouth?Daily Atorvastatin (atorvastatin 10 mg oral tablet)?1?tab(s)?10?Milligram?By Mouth?Daily?pt unsure of dose budesonide/formoterol/glycopyrrolate (Breztri Aerosphere inhalation aerosol)?2?puff(s)?Inhalation?2 times a day?rinse mouth and throat after use budesonide/formoterol/glycopyrrolate (Breztri Aerosphere inhalation aerosol)?2?puff(s)?Inhalation?2 times a day?rinse mouth and throat after use Chlorthalidone (chlorthalidone 25 mg oral tablet)?50?Milligram?2?tablet?By Mouth?Daily Metformin (metFORMIN 1000 mg oral tablet)?1?tab(s)?1,000?Milligram?By Mouth?2 times a day Tamsulosin (tamsulosin 0.4 mg oral capsule)?1?capsule?0.4?Milligram?By Mouth?2 times a day ? Results Recent Labs BLOOD COUNT & DIFF WBC 21.4 k/mm3 (High)?? 05/06/2023 03:23 RBC 3.38 m/mm3 (Low)?? 05/06/2023 03:23 Hgb 10.1 Gm/dL (Low)?? 05/06/2023 03:23 Hct 30.9 % (Low)?? 05/06/2023 03:23 MCV 91.4 femtoliters ()?? 05/06/2023 03:23 MCH 29.9 pg ()?? 05/06/2023 03:23 MCHC 32.7 g/dL (Low)?? 05/06/2023 03:23 Platelet Count 352 k/mm3 ()?? 05/06/2023 03:23 RDW-SD 48.9 femtoliters (High)?? 05/06/2023 03:23 MPV 8.9 femtoliters (Low)?? 05/06/2023 03:23 Nucleated RBC (Automated) 0.0 #/100 WBC'S ()?? 05/06/2023 03:23 Abs. NRBC 0.0 k/mm3 ()?? 05/06/2023 03:23 Abs. Neut 17.2 k/mm3 (High)?? 05/05/2023 20:35 Abs. Lymph 0.8 k/mm3 ()?? 05/05/2023 20:35 Abs. Wilkes 1.4 k/mm3 (High)?? 05/05/2023 20:35 Abs. Eo 0.0 k/mm3 ()?? 05/05/2023 20:35 Abs. Baso 0.1 k/mm3 ()?? 05/05/2023 20:35 Neut % 87.3 % (High)?? 05/05/2023 20:35 Lymph % 4.2 % (Low)?? 05/05/2023 20:35 Wilkes % 7.1 % ()?? 05/05/2023 20:35 Eos % 0.2 % ()?? 05/05/2023 20:35 Baso % 0.4 % ()?? 05/05/2023 20:35 Imm Gran 0.8 % ()?? 05/05/2023 20:35 Abs. Imm Gran 0.2 k/mm3 ()?? 05/05/2023 20:35 ?? CARDIAC Nt-Probnp 259 pg/mL ()?? 05/06/2023 03:23 High Sensitivity Troponin (HSTnT) 37 ng/L (High)?? 05/06/2023 03:23 ?? CHEM GENERAL Sodium 135 mmol/L ()?? 05/06/2023 03:23 Potassium 3.9 mmol/L ()?? 05/06/2023 03:23 Chloride 95 mmol/L (Low)?? 05/06/2023 03:23 Bicarbonate Level 25 mmol/L ()?? 05/06/2023 03:23 Anion Gap 15 ()?? 05/06/2023 03:23 Glucose Level 164 mg/dL (High)?? 05/05/2023 20:35 BUN 13 mg/dL ()?? 05/05/2023 20:35 Creatinine-Blood 0.9 mg/dL ()?? 05/05/2023 20:35 Estimated GFR Creatinine 89 ML/MIN/1.73 M2 ()?? 05/05/2023 20:35 Calcium 9.1 mg/dL ()?? 05/05/2023 20:35 ?? COAG D-Dimer 0.62 mg/L FEU ()?? 05/05/2023 22:38 ?? HEME OTHER Hold Lavender Top SPECIMEN DISCARDED AFTER 24 HOURS. ()?? 05/06/2023 03:23 ?? MISC. CHEMISTRY Hold Gel Top SPECIMEN DISCARDED AFTER 1 WEEK ()?? 05/06/2023 03:23 ?? UA/URINALYSIS Appear/Color, Urine YELLOW ()?? 05/06/2023 05:10 Specific [place], Urine 1.011 ()?? 05/06/2023 05:10 pH, Urine 6.0 ()?? 05/06/2023 05:10 Albumin, Urine 1+ (Abnormal)?? 05/06/2023 05:10 Glucose, Urine NEGATIVE ()?? 05/06/2023 05:10 Ketones, Urine NEGATIVE ()?? 05/06/2023 05:10 Bilirubin, Urine NEGATIVE ()?? 05/06/2023 05:10 Hemoglobin, Urine 2+ (Abnormal)?? 05/06/2023 05:10 Nitrite, Urine POSITIVE (Abnormal)?? 05/06/2023 05:10 Leukocyte, Urine 3+ (Abnormal)?? 05/06/2023 05:10 Urobilinogen NORMAL mg/dL ()?? 05/06/2023 05:10 WBC's, Urine >182 /HPF (High)?? 05/06/2023 05:10 RBC's, Urine 43 /HPF (High)?? 05/06/2023 05:10 Bacteria MODERATE HPF (Abnormal)?? 05/06/2023 05:10 Mucus HEAVY /LPF ()?? 05/06/2023 05:10 ?? VIROLOGY COVID-19 by RT-PCR NEGATIVE ()?? 05/05/2023 22:40 ? EKG study * Event Display: ECG 12-Lead Authored Date: Please click on pdf link to open report * Event Display: ECG 12-Lead Authored Date: Ventricular Rate: 101 BPM Atrial Rate: 101 BPM P-R Interval: 140 ms QRS Duration: 146 ms Q-T Interval: 380 ms QTC Calculation(Bazett): 492 ms P [place]: 1 degrees R [place]: -57 degrees T [place]: 52 degrees Sinus tachycardia Right bundle branch block Left anterior fascicular block Bifascicular block Abnormal ECG When compared with ECG of 11-JAN-2020 20:13, Premature atrial complexes are no longer Present Confirmed by DANIELLE FAJARDO ([id number]) on 05/07/2023 10:53:44 AM [place]: DANIELLE FAJARDO Cardiology * Event Display: Cardiac Rhythm Strips Authored Date: Hospital Progress note * Lin Hicks RN: PERFORM, MODIFY, MODIFY, MODIFY, MODIFY, SIGN, VERIFY Event Display: Progress Note Hospital Authored Date: Patient: EDE SANTANA Age: 77 years Sex: Male : 1945 Associated Diagnoses: None Author: Lin Hicks RN Findings Problem Related to Alteration in Respiratory Function (new) : Alteration in Respiratory Function/new 05/07/2023 23:00 EDT Alteration in Resp Status Related to COPD Goals & Outcomes, Respiratory Pt will maintain/resume baseline physical assessment, Pt will maintain adequate nutritional intake, Pt will maintain/resume normal fluid/electrolyte balance, Pt willnot develop complications r/t immobility Interventions, Respiratory Resolved problem, Interventions no longer in effect Goals/Interventions, Respiratory Yes Respiratory, Problem Start 05/06/2023 16:56 Reviewed Plan with, Respiratory Patient Patient Progression, Respiratory Resolved problem Respiratory, Problem Resolved 05/07/2023 23:59 . Nursing Data Cardiac Data. : Cardiac Data. 05/07/2023 20:00 EDT Cardiovascular Symptoms None Nail Bed Color, Fingers [place] Skin Temperature Upper Extremities Warm Skin Temperature Lower Extremities Warm Heart Sounds S1, S2 Heart Rhythm Regular Cardiovascular Comment pt denies chest pain, +cms and pps to all extremities Cardiac Rhythm Normal sinus rhythm Capillary Refill < 3 seconds Dorsalis Pedis Pulse, Left Normal Dorsalis Pedis Pulse, Right Normal Cardiovascular WNL except . Respiratory/Pulmonary Data. : Respiratory/Pulmonary Data. 05/07/2023 20:00 EDT Respiratory Symptoms None Respiratory effort Unlabored Respiratory Assessment Comment pt denies sob, respirations even and unlabored on room air Cough No cough Respiratory pattern Regular Left Upper Lobe Breath Sounds Clear Right Upper Lobe Breath Sounds Clear Right Middle Lobe Breath Sounds Diminished Left Lower Lobe Breath Sounds Clear Right Lower Lobe Breath Sounds Diminished Respiratory Treatment(s) Cough and deep breathe Respiratory WNL except . Vital Signs : VITAL SIGNS SECTION 05/07/2023 23:17 EDT Temperature 97.8 DegF Temperature Route Oral Pulse Rate 77 bpm Respiratory Rate 20 br/min Systolic Blood Pressure 123 mm Hg Diastolic Blood Pressure 66 mm Hg Blood pressure sites Arm, right Mean Arterial Pressure 85 mm Hg Pulse Pressure 57 mm Hg Oxygen Saturation 97 % Mode of Delivery (Oxygen) Room air 05/07/2023 21:40 EDT Early Warning Score 6.00 05/07/2023 21:37 EDT Systolic Blood Pressure 142 mm Hg H Diastolic Blood Pressure 59 mm Hg 05/07/2023 19:45 EDT Early Warning Score 6.00 05/07/2023 19:39 EDT Temperature 97.6 DegF Temperature Route Oral Pulse Rate 83 bpm Respiratory Rate 20 br/min Systolic Blood Pressure 134 mm Hg Diastolic Blood Pressure 50 mm Hg L Blood pressure sites Arm, right Mean Arterial Pressure 78 mm Hg Pulse Pressure 84 mm Hg Oxygen Saturation 96 % Mode of Delivery (Oxygen) Room air . Narrative/Incidental P: per nursing care plan I: r/t nursing care plan E: Assumed care of patient at 1830, pt a/ox4, denies dizziness, remains afebrile, VS wnl. Pt offersno complaints at this time, no acute events overnight to this am. Respirations even and unlabored on room air, denies sob. Denies NVD, tolerating po intake without difficulty. Pt ambulating with steady gait to BR, denies dysuria. Educated patient on plan of care and call [place] use, fall risk precautions in place, call [place] within reach, hourly rounding maintained. See CIS for full assessment data and flow sheets, will continue monitoring as needed. . Discharge Information Pulmonary Rehab Discharge : Pulmonary Rehab Discharge Status 05/07/2023 3:44 EDT CPAP/BiPAP Mask Type Full CPAP/BiPAP Mask Size Large 05/06/2023 23:21 EDT CPAP/BiPAP Mask Size Large * Hortensia Hargrove DO: PERFORM Event Display: Progress Note Hospital Authored Date: Patient: ??EDE SANTANA ? Age:??77 Years?Sex:??Male?:??1945?? Subjective No acute events overnight.?? Patient reports improvement in shortness of breath.?He denies any chest pain, abdominal pain,??nausea/vomiting,??denies any urinary symptoms,??no increased frequency, blood in the urine??or painful urination. Review of Systems A full review of systems was completed and is otherwise negative except as mentioned in history of present illness. Allergies Allergies ?(Active and Proposed Allergies Only) lisinopril? (Severity: Persistent Severe, Onset: Unknown) ?Reactions: facial swelling, Lip Swelling Other Food Allergy? (Severity: Unknown severity, Onset: Unknown) ?Reactions: face swelling, throat swelling, anaph., peanuts, legumes Nuts? (Severity: Unknown severity, Onset: Unknown) ?Reactions: face swelling, throat swelling, anaph. Percocet 5/325? (Severity: Unknown severity, Onset: Unknown) ?Reactions: joint darío Objective Vital Signs?? Temperature: 97.8 DegF (05/07/23 10:35:00) Temperature Route: Oral (05/07/23 10:35:00) Pulse Rate: 82 bpm (05/07/23 10:35:00) Respiratory Rate: 18 br/min (05/07/23 10:35:00) Systolic Blood Pressure:??154 mm Hg??High (05/07/23 10:35:00) Diastolic Blood Pressure: 71 mm Hg (05/07/23 10:35:00) Blood pressure sites: Arm, left (05/07/23 10:35:00) Mean Arterial Pressure: 99 mm Hg (05/07/23 10:35:00) Pulse Pressure: 83 mm Hg (05/07/23 10:35:00) Oxygen Saturation: 95 % (05/07/23 10:35:00) Liters per Minute: 2 L/min (05/06/23 19:51:00) Mode of Delivery (Oxygen): Room air (05/07/23 10:35:00) FiO2: 21 % (05/06/23 23:21:00) Early Warning Score: 8 (05/07/23 10:40:44) ? Ventilator Settings?? FiO2: 21 % (23:21) ? Intake/Output? 05/06 01:10 05/07 07:00 05/06 07:00 05/05 07:00 05/04 07:00 ?? 05/07 11:55 05/07 11:55 05/07 06:59 05/06 06:59 05/05 06:59 Intake ?180 ?180 ?0 ?0 ?0 Output ?301 ?0 ?301 ?0 ?0 Net Total ? -121 ?180 ? -301 ?0 ?0 ? Physical Exam Constitutional: Alert, in no distress. Mental Status: Oriented to person, place and time. Respiratory: Clear to auscultation. No wheezing, rales or rhonchi. Cardiovascular: S1 S2 regular. No murmurs, rubs or gallops. Gastrointestinal: Abdomen soft, non-tender, non-distended. Normal bowel sounds. Genitourinary: No costovertebral angle tenderness. Neurologic: Cranial nerves II-XII grossly intact. No focal neurological deficits.?? Moves all extremities spontaneously. Sensation intact b/l Skin: No rashes or lesions. No petechiae or purpura.?? Musculoskeletal: No cyanosis or clubbing. No gross deformities. Normal range of motion. _ Inpatient Medications Medications (26) Active SCHEDULED: (12) Amlodipine 10 mg Tablet (Norvasc 10 mg oral tablet) ??10 mg, By Mouth, Daily Ceftriaxone 1 Gm Inj (Ceftriaxone Inj) ??1 Gm, IVPB, Every 24 hours Chlorthalidone 25 mg Tablet (chlorthalidone 25 mg oral tablet) ??50 mg, By Mouth, Daily Finasteride 5 mg Tablet (finasteride 5 mg oral tablet) ??5 mg, By Mouth, Daily Heparin 5000 units/mL Inj (1 mL) (Heparin Inj) ??5,000 units 1 mL, Subcutaneous Injection, 3 times a day hydrALAZINE 25 mg Tablet (hydrALAZINE 25 mg oral tablet) ??50 mg, By Mouth, 3 times a day Insulin Glargine 100 units/mL Inj (Lantus Inj) ??10 units 0.1 mL, Subcutaneous Injection, Daily at bedtime Insulin Lispro 100 units/mL Inj (3mL) (Insulin LISPRO Sliding Scale) ??2-10 units, Subcutaneous Injection, 3 times a day before meals NaCl 0.9% Flush 3ml (NaCL 0.9% Flush) ??3 mL, IV Push, Every 8 hours PredniSONE 20 mg Tablet (predniSONE 20 mg oral tablet) ??40 mg, By Mouth, Daily Rosuvastatin 5 mg Tablet (rosuvastatin 5 mg oral tablet) ??10 mg, By Mouth, Daily Tamsulosin 0.4 mg Capsule (tamsulosin 0.4 mg oral capsule) ??0.4 mg, By Mouth, 2 times a day CONTINUOUS: (0) PRN: (14) Acetaminophen 325 mg Tablet (Acetaminophen Tablet) ??650 mg, By Mouth, Every 4 hours Albuterol 0.083% Inhalation Solution (Albuterol 0.083% inhalation artem) ??2.5 mg 3 mL, BAND Nebulizer, Every 4 hours Dextromethorphan-Guaifenesin 20 mg-200 mg/10 mL Liqu UD (Robitussin DM Liquid) ??10 mL, By Mouth, Every 4 hours Dextrose Inj Syringe (Dextrose 50% Inj Syringe (25Gm)) ??12.5 Gm, IV Push Slowly, Every 20 minutes Dextrose Inj Syringe (Dextrose 50% Inj Syringe (25Gm)) ??25 Gm, IV Push Slowly, Every 15 minutes Docusate Sodium 100 mg Capsule (Docusate Sodium Capsule) ??100 mg 1 capsule, By Mouth, 2 times a day Glucagon 1 mg Inj (Glucagon Inj) ??1 mg, Intramuscular, Once Glucose 40% Gel (15 Gm) (Glucose Gel) ??15 Gm, By Mouth, Every 20 minutes Glucose 40% Gel (15 Gm) (Glucose Gel) ??30 Gm, By Mouth, Every 20 minutes Melatonin 3 mg Tablet (Melatonin Tablet) ??3 mg, By Mouth, Daily at bedtime NaCl 0.9% Flush 3ml (NaCL 0.9% Flush) ??3 mL, IV Push, Every 8 hours Polyethylene Glycol 17 Gm Powder (MiraLax Powder) ??17 Gm 1 pack/packet, By Mouth, Daily Senna Tablet ??8.6 mg 1 tablet, By Mouth, 2 times a day Simethicone 80 mg Chewable Tablet (Simethicone Tablet) ??80 mg, Chew, 3 times a day ? 72 Hour Antibiotic History Active Antibiotics Calendar Day Last Administered First Administered Ceftriaxone??1 Gm, 100 mL/hr, IVPB, Every 24 hours ?1 05/07/2023 01:12 05/07/2023 01:12 ? Stopped Antibiotics Stop Date/Time Last Administered First Administered Ceftriaxone??1 Gm, 100 mL/hr, IVPB, Once 05/06/2023 02:08 05/06/2023 02:08 05/06/2023 02:08 Azithromycin??500 mg, 250 mL/hr, IVPB, Once 05/06/2023 01:08 05/06/2023 01:07 05/06/2023 01:07 ? Results Recent Labs BLOOD COUNT & DIFF WBC 21.0 k/mm3 (High)?? 05/07/2023 00:43 RBC 3.48 m/mm3 (Low)?? 05/07/2023 00:43 Hgb 10.3 Gm/dL (Low)?? 05/07/2023 00:43 Hct 31.7 % (Low)?? 05/07/2023 00:43 MCV 91.1 femtoliters ()?? 05/07/2023 00:43 MCH 29.6 pg ()?? 05/07/2023 00:43 MCHC 32.5 g/dL (Low)?? 05/07/2023 00:43 Platelet Count 320 k/mm3 ()?? 05/07/2023 00:43 RDW-SD 48.4 femtoliters (High)?? 05/07/2023 00:43 MPV 8.8 femtoliters (Low)?? 05/07/2023 00:43 Nucleated RBC (Automated) 0.0 #/100 WBC'S ()?? 05/07/2023 00:43 Abs. NRBC 0.0 k/mm3 ()?? 05/07/2023 00:43 ?? CARDIAC Nt-Probnp 259 pg/mL ()?? 05/06/2023 03:23 High Sensitivity Troponin (HSTnT) 37 ng/L (High)?? 05/06/2023 03:23 ?? CHEM GENERAL Sodium 135 mmol/L ()?? 05/07/2023 00:41 Potassium 3.8 mmol/L ()?? 05/07/2023 00:41 Chloride 95 mmol/L (Low)?? 05/07/2023 00:41 Bicarbonate Level 28 mmol/L ()?? 05/07/2023 00:41 Anion Gap 12 ()?? 05/07/2023 00:41 Glucose, POC 217 mg/dL (High)?? 05/07/2023 10:39 Hemoglobin A1C (Monitoring) 5.7 % (High)?? 05/06/2023 13:16 BUN 19 mg/dL ()?? 05/07/2023 00:41 Creatinine-Blood 0.9 mg/dL ()?? 05/07/2023 00:41 Estimated GFR Creatinine 87 ML/MIN/1.73 M2 ()?? 05/07/2023 00:41 C-Reactive Protein 14.5 mg/dL (High)?? 05/06/2023 13:16 Estimated Average Glucose 117 mg/dL ()?? 05/06/2023 13:16 ?? HEME OTHER Hold Lavender Top SPECIMEN DISCARDED AFTER 24 HOURS. ()?? 05/06/2023 03:23 ?? MISC. CHEMISTRY Procalcitonin 0.41 ng/mL ()?? 05/06/2023 13:16 Hold Gel Top SPECIMEN DISCARDED AFTER 1 WEEK ()?? 05/06/2023 03:23 ?? UA/URINALYSIS Appear/Color, Urine LIGHT YELLOW ()?? 05/06/2023 14:28 Specific [place], Urine 1.007 ()?? 05/06/2023 14:28 pH, Urine 6.5 ()?? 05/06/2023 14:28 Albumin, Urine TRACE (Abnormal)?? 05/06/2023 14:28 Glucose, Urine 3+ (Abnormal)?? 05/06/2023 14:28 Ketones, Urine NEGATIVE ()?? 05/06/2023 14:28 Bilirubin, Urine NEGATIVE ()?? 05/06/2023 14:28 Hemoglobin, Urine TRACE (Abnormal)?? 05/06/2023 14:28 Nitrite, Urine NEGATIVE ()?? 05/06/2023 14:28 Leukocyte, Urine 3+ (Abnormal)?? 05/06/2023 14:28 Urobilinogen NORMAL mg/dL ()?? 05/06/2023 14:28 WBC's, Urine >182 /HPF (High)?? 05/06/2023 14:28 RBC's, Urine 2 /HPF ()?? 05/06/2023 14:28 Bacteria SLIGHT HPF (Abnormal)?? 05/06/2023 14:28 Squamous Epith <1 /HPF ()?? 05/06/2023 14:28 Mucus SLIGHT /LPF ()?? 05/06/2023 14:28 ?? URINE OTHER Est Creatinine Clearance 68.70 mL/min ()?? 05/06/2023 16:06 ? Assessment/Plan Assessment:??77 year old male with pmh of COPD, DM, HTN, MISTY on CPAP, h/o BPH s/p TURP who presented??with SOB??with cough and worsening shortness of breath and admitted for UTI and possible ACS ruleout ?? UTI (urinary tract infection) (N39.0):?? pt was recently admitted to an outside hospital and underwent cystoscopy and had a Pedraza catheter placed.??Was removed by his PCP??outpt He now complains of frequency and only passing small amounts of urine. Was started on ceftriaxone UA demonstrates leukocytes, WBC>182. urine cx - negative, no growth is??currently on ceftriaxone ID consulted recs appreciated Blood cx pending WBC uptrending, likely due to steroids and possibly infx, will monitor pt currently denying any urinary symptoms ?? Plan: - Follow up on blood cx - Continue ceftriaxone - Follow up cbc ?? Shortness of breath (R06.02): MISTY on CPAP (G47.33): COPD: pt complaining??of SOB on admission has hx of COPD and MISTY CXR did not demonstrate any acute pathology?? pt reports improvement of SOB, pt states he has not had inc in cough or??sputum production recently, just SOB?? will stop prednisone for now, given less likely this is COPD exacerbation ?? Plan: - CPAP at bedtime - Updraft treatment - will stop prednisone for now ?? Diabetes: on metformin at home, will hold and begin ISS and Lantus 10units a bed time given elevated glucose HbA1c on 05/06: 5.7 ?? Plan: - Lantus 10units at bed time - Sliding scale - Diabetic carb counting diet ?? Elevated Troponin: Troponin 35->32->37, elevated??but flat No complaints of chest, EKG??did not demonstrate any concern for ischemia possibly increased due to inc demand from possible infx ?? Plan: will monitor patient for now, if any??new complaints of chest pain or sudden SOB will consider repeat troponins? Hypertension: continue??amlodipine, hydralazine, chlorthalidone? Quality Measurements: Code: Full VTE Prophylaxis: Heparin Diet: Diabetic, carb counting ? Patient??discussed with attending physician Dr. Gramajo ?? Hortensia Hargrove, DO Internal Medicine, PGY-1 Pager [phone] ? * Fredis Gramajo MD: PERFORM Event Display: Progress Note Hospital Authored Date: I have evaluated and examined the patient??on the day of service. I have discussed the care and management with the medical team. Agree with written findings, assessment and plan as outlined in residents note below. * Kurt OQUENDO, Lin: MODIFY, MODIFY, MODIFY, MODIFY, MODIFY, SIGN, VERIFY, PERFORM, MODIFY Event Display: Progress Note Hospital Authored Date: Patient: EDE SANTANA Age: 77 years Sex: Male : 1945 Associated Diagnoses: None Author: Kurt OQUENDO, Lin Findings Problem Related to Alteration in Respiratory Function (new) : Alteration in Respiratory Function/new 05/06/2023 20:00 EDT Alteration in Resp Status Related to COPD Goals & Outcomes, Respiratory Pt will maintain/resume baseline physical assessment, Pt will maintain adequate nutritional intake, Pt will maintain/resume normal fluid/electrolyte balance, Pt willnot develop complications r/t immobility Interventions, Respiratory Assess for and report S&S of respiratory distress, Position for comfort & optimal oxygenation, Monitor sputum color & consistency. Report changes to MD, Teach/encourage use of incentive spirometer BH Goals/Interventions, Respiratory Yes Respiratory, Problem Start 05/06/2023 16:56 Reviewed Plan with, Respiratory Patient Patient Progression, Respiratory Patient progressing according to plan . Nursing Data Cardiac Data. : Cardiac Data. 05/06/2023 20:00 EDT Cardiovascular Symptoms None Nail Bed Color, Fingers [place] Nail Bed Color, Toes [place] Skin Temperature Upper Extremities Warm Skin Temperature Lower Extremities Warm Heart Sounds S1, S2 Heart Rhythm Regular Cardiovascular Comment denies chest pain, +cms and pps to all extremities. Cardiac Rhythm Normal sinus rhythm Capillary Refill < 3 seconds Cardiovascular WNL except . Respiratory/Pulmonary Data. 05/06/2023 20:00 EDT Respiratory Symptoms None Respiratory effort Unlabored Respiratory Assessment Comment pt denies sob Cough No cough Respiratory pattern Regular Respiratory distress None Respiratory Treatment(s) Cough and deep breathe, Incentive spirometry Respiratory WNL except . Vital Signs : VITAL SIGNS SECTION 05/06/2023 23:24 EDT Temperature 98.1 DegF Temperature Route Axillary Pulse Rate 77 bpm Respiratory Rate 20 br/min Systolic Blood Pressure 141 mm Hg H Diastolic Blood Pressure 56 mm Hg Blood pressure sites Arm, right Mean Arterial Pressure 84 mm Hg Pulse Pressure 85 mm Hg Oxygen Saturation 96 % Mode of Delivery (Oxygen) Room air 05/06/2023 23:21 EDT FiO2 21 % 05/06/2023 20:24 EDT Early Warning Score 6.00 05/06/2023 20:23 EDT Early Warning Score 6.00 05/06/2023 20:15 EDT Systolic Blood Pressure 142 mm Hg H Diastolic Blood Pressure 52 mm Hg L 05/06/2023 20:01 EDT Early Warning Score 6.00 05/06/2023 19:59 EDT Respiratory Rate 18 br/min 05/06/2023 19:52 EDT Early Warning Score 6.00 05/06/2023 19:51 EDT Temperature 97.4 DegF Temperature Route Oral Pulse Rate 94 bpm H Respiratory Rate 18 br/min Systolic Blood Pressure 142 mm Hg H Diastolic Blood Pressure 52 mm Hg L Blood pressure sites Arm, right Mean Arterial Pressure 82 mm Hg Pulse Pressure 90 mm Hg Oxygen Saturation 99 % Liters per Minute 2 L/min Mode of Delivery (Oxygen) Nasal cannula . Evaluation P: per nursing care plan I: r/t nursing care plan E: Asssumed care of patient at 1830, pt assessed, a/ox4, denies dizziness, following commands appropriately, afebrile, VS wnl. Respirations even and unlabored on 2L NC, LS CTA, pt denies sob, tolerated CPAP overnight to this am, educated on incentive spirometer use, pt able to return demonstration.NSR 70s on tele, denies chest pain, +cms and pps to all extremities, no edema. ABD soft, nontender +BS to all quads, pt denies N/V/D, tolerating PO intake without difficulty. Voiding in urinal, denies dysuria, bladder scanned at 2330 for 4cc. Pt offers no complaints at this time. Educated on plan of care and call [place] use, fall risk precautions in place, call davenport within reach. See CIS for full as sessment data and flow sheets, hourly rounding maintained, will continue monitoring as needed. . Note * Event Display: Provider Clarification Note Please click on pdf link to open report * Abeba Devine LPN: PERFORM Event Display: Discharge/Transfer Note Hospital Authored Date: [id number] Nursing Discharge Note Entered On: 05/08/2023 11:57 EDT Performed On: 05/08/2023 11:57 EDT by Abeba Devine LPN Nursing Discharge Note 2 Discharge Time : 05/08/2023 12:00 EDT Discharge Level of Care at Discharge : Home/Halfway/Foster Care Patient Left Unit Via : Wheelchair Patient Accompanied Off Unit with : Responsible adult DC Instructions Provided & Signed by Pt : Yes Patient Understands D/C Instructions : Yes Patient Instructions Discharge Signed : Yes Did Pt have Specialty Bed or Wound Vac : Yes Nilson ARNOLDAbeba - 05/08/2023 11:57 EDT * Hortensia Hargrove DO: PERFORM Event Display: Discharge/Transfer Note Hospital Authored Date: [id number] Patient: ??EDE SANTANA ? Age:??77 Years?Sex:??Male?:??1945?? Patient Information Discharge Location: B Primary Care Physician: Denis Diehl MD Admit Date/Time: 05/06/23 01:10 Discharge: 05/08/2023 Discharge Disposition Discharge Disposition: Home: No Services Discharge Diagnosis COPD exacerbation (J44.1) Hypertension (I10) MISTY on CPAP (G47.33) Pneumonia (J18.9) Shortness of breath (R06.02) UTI (urinary tract infection) (N39.0) ?? _ Discharge Medications Albuterol (Albuterol (Eqv-ProAir HFA) 90 mcg/inh inhalation aerosol)?2?puff(s)?Inhalation?Every 4 hours?as needed? NEEDED FOR WHEEZING?USE WITH SPACER CHAMBER. Amlodipine (amLODIPine 10 mg oral tablet)?20?Milligram?2?tablet?By Mouth?Daily Aspirin (aspirin 81 mg oral delayed release tablet)?81?Milligram?1?tablet?By Mouth?Daily Atorvastatin (atorvastatin 10 mg oral tablet)?1?tab(s)?10?Milligram?By Mouth?Daily?pt unsure of dose budesonide/formoterol/glycopyrrolate (Breztri Aerosphere inhalation aerosol)?2?puff(s)?Inhalation?2 times a day?rinse mouth and throat after use budesonide/formoterol/glycopyrrolate (Breztri Aerosphere inhalation aerosol)?2?puff(s)?Inhalation?2 times a day?rinse mouth and throat after use Cetirizine (ZyrTEC 10 mg oral tablet)?1?tab(s)?10?Milligram?By Mouth?Daily Chlorthalidone (chlorthalidone 25 mg oral tablet)?50?Milligram?2?tablet?By Mouth?Daily EPINEPHrine (EpiPen 2-Jeff[place] 0.3 mg injectable kit)?0.3?Milligram?Intramuscular?Once Inulin (Fiber Choice 1.5 g oral tablet, chewable)?1?tab(s)?1.5?gram?Chew?2 times a day Magnesium Oxide (magnesium oxide 400 mg oral tablet)?1?tab(s)?400?Milligram?By Mouth?Daily Metformin (metFORMIN 1000 mg oral tablet)?1?tab(s)?1,000?Milligram?By Mouth?2 times a day tafluprost ophthalmic (Zioptan 0.0015% ophthalmic solution)?INSTILL ONE DROP IN BOTH EYES AT BEDTIME DIRECTED Tamsulosin (tamsulosin 0.4 mg oral capsule)?1?capsule?0.4?Milligram?By Mouth?2 times a day Vitamin E (vitamin E 400 iu oral capsule)?1?capsule?400?International Unit?By Mouth?Daily ? Medications Started none Medications Discontinued none Doses Changed none Allergies Allergies ?(Active and Proposed Allergies Only) lisinopril? (Severity: Persistent Severe, Onset: Unknown) ?Reactions: facial swelling, Lip Swelling Other Food Allergy? (Severity: Unknown severity, Onset: Unknown) ?Reactions: face swelling, throat swelling, anaph., peanuts, legumes Nuts? (Severity: Unknown severity, Onset: Unknown) ?Reactions: face swelling, throat swelling, anaph. Percocet 5/325? (Severity: Unknown severity, Onset: Unknown) ?Reactions: joint darío ? PCP Follow-Up/Heads-Up pt presented with SOB, was admitted for concern of UTI, COPD exacerbation and elevated troponin, leukocytosis pt urine cx and blood cx negative, and cxr did not show pneumonia, leukocytosis improving, PCP to follow up with CBC Elevated troponin, with ekg NSR and RBBB, no chest pain. PCP to follow up on DM medication management Hospital Course 77 year old male with pmh of COPD, DM, HTN, MISTY on CPAP, h/o BPH s/p TURP who presented with SOB with cough and worsening shortness of breath and admitted for possible UTI and possible ACS rule out. He was recently admitted to an outside hospital 3 weeks ago with hematuria. He underwent cystoscopy by urology and temporarily had a Pedraza catheter placed which was subsequently removed by PCP. Over the last week or so he has been having frequency with small amounts of urine passed.??In ED patient was mildly tachycardic, reaming vital signs relatively stable, EKG demonstrate NSR with RBBB. Labs significant for leukocytosis and UA positive for leukocytes and wbc>182, and troponin of 35. CXR did not demonstrate any acute pathology.??Pt was started on ceftriaxone and admitted for possible UTI and concern of COPD exacerbation and ACS rule out. Troponin remained flat and??patient did not have can complaints of chest pain. SOB??improved with albuterol inhaler and??nebulizer treatment, and received one dose of steroid. Leukocytosis initially uptrend, possible due to steroid treatment. Urine cx was negative and blood culture was prelim negative. On day of discharge patient??reports improvement in SOB, almost back to baseline, improving leukocytosis and is hemodynamically stable for discharge.? Leukocytosis - improving?pt was recently admitted to an outside hospital and underwent cystoscopy and had a Pedraza catheterplaced. Was removed by his PCP outpt ??He now complains of frequency and only passing small amounts of urine. Was started on ceftriaxone ??UA demonstrates leukocytes, WBC>182. ??urine cx - negative, no growth blood cx - prelim negative CXR - no acute pathology, no??concern for pneumonia no obvious sign of skin infection/lesions/wounds received ceftriaxone for 3 days ??ID consulted recs appreciated ??WBC??improving on day of discharge ??pt currently denying any urinary symptoms, reports improvement in SOB ? Plan: ??- PCP to follow up cbc ? Shortness of breath (R06.02): improved MISTY on CPAP (G47.33): COPD: ??pt complaining of SOB on admission ??has hx of COPD and MISTY ??CXR did not demonstrate any acute pathology ??pt reports improvement of SOB, pt states he has not had inc in cough or sputum production recently, just SOB ??will stop prednisone for now, given less likely this is COPD exacerbation ? Plan: ??- continue Albuterol inhaler and Breztri at home ??- continue to use BiPAP at home ? Diabetes: ??on metformin at home ??HbA1c on 05/06: 5.7 ? Plan: - resume metformin - PCP to follow up on diabetes medication management ? Elevated Troponin: ??Troponin 35->32->37, elevated but flat ??No complaints of chest, EKG did not demonstrate any concern for ischemia ??possibly increased due to inc demand from possible infx ? Plan: pt to monitor for any chest pain, if concern for [place] pt to go to ER immediately ? Hypertension: continue amlodipine, hydralazine, chlorthalidone ?? Objective Measurements?? Height: 174 cm (05/08/23) Weight: 97.7 kg (05/06/23) Dry Weight: 97.7 kg (05/06/23) Body Mass Index:??32.27 kg/m2??Critical (05/06/23) ? Vital Signs?? Temperature: 97.6 DegF (05/08/23 07:00:00) Temperature Route: Oral (05/08/23 07:00:00) Pulse Rate: 81 bpm (05/08/23 07:00:00) Respiratory Rate: 20 br/min (05/08/23 07:00:00) Respiratory Rate: 18 br/min (05/08/23 07:00:00) Systolic Blood Pressure: 118 mm Hg (05/08/23 08:57:00) Systolic Blood Pressure: 118 mm Hg (05/08/23 08:57:00) Diastolic Blood Pressure: 62 mm Hg (05/08/23 08:57:00) Diastolic Blood Pressure: 62 mm Hg (05/08/23 08:57:00) Blood pressure sites: Arm, right (05/08/23 07:00:00) Mean Arterial Pressure: 80 mm Hg (05/08/23 03:31:00) Pulse Pressure: 56 mm Hg (05/08/23 07:00:00) Oxygen Saturation: 94 % (05/08/23 07:00:00) Mode of Delivery (Oxygen): Room air (05/08/23 07:00:00) FiO2: 21 % (05/08/23 01:04:00) Early Warning Score: 4 (05/08/23 10:51:05) ? . Physical Exam Constitutional: Alert, in no distress. Mental Status: Oriented to person, place and time. Respiratory: Clear to auscultation. No wheezing, rales or rhonchi. Cardiovascular: S1 S2 regular. No murmurs, rubs or gallops. Gastrointestinal: Abdomen soft, non-tender, non-distended. Normal bowel sounds. Neurologic: Cranial nerves II-XII grossly intact. No focal neurological deficits.?? Moves all extremities spontaneously. Sensation intact bilaterally. Skin: No rashes or lesions. No petechiae or purpura.?? Musculoskeletal: No cyanosis or clubbing. No gross deformities. Normal range of motion. Consultants ID Pending Results Add On Lab Order ordered on 05/06/2023 Add On Lab Order ordered on 05/06/2023 Blood Culture ordered on 05/06/2023 Blood Culture #2 ordered on 05/06/2023 Patient Education Titles Shortness of Breath (Dyspnea)?? Chronic Lung Disease:??Controlling Stress?? Follow-Up Appointments Added Follow Up ?Time Frame ?Comments Shanita SANTIAGO , Denis Hui?1 week Patient Instructions You were admitted to the hospital for shortness of breath. During your hospitalization your recieved streoids for concern of COPD exacerbation. Additionally your urine culture and blood culture did not grow any bacteria, and your chest x-ray did not show any concern for pneumonia. ?? Please continue your home medications as prescribed Please follow up with your PCP ?? If symptoms worsen or new symptoms develop, please seek medical attention. If you do not have a PCP, please call the [facility] PCP hotline [phone]. Post Discharge Care Discharge ?05/08/23 10:57:00 EDT Discharge Prescriptions ?None, ??05/08/23 10:57:00 EDT Results Discharge Labs BLOOD COUNT & DIFF WBC 14.5 k/mm3 (High)?? 05/08/2023 00:55 RBC 3.60 m/mm3 (Low)?? 05/08/2023 00:55 Hgb 10.3 Gm/dL (Low)?? 05/08/2023 00:55 Hct 32.0 % (Low)?? 05/08/2023 00:55 MCV 88.9 femtoliters ()?? 05/08/2023 00:55 MCH 28.6 pg ()?? 05/08/2023 00:55 MCHC 32.2 g/dL (Low)?? 05/08/2023 00:55 Platelet Count 343 k/mm3 ()?? 05/08/2023 00:55 RDW-SD 46.0 femtoliters ()?? 05/08/2023 00:55 MPV 8.5 femtoliters (Low)?? 05/08/2023 00:55 Nucleated RBC (Automated) 0.0 #/100 WBC'S ()?? 05/08/2023 00:55 Abs. NRBC 0.0 k/mm3 ()?? 05/08/2023 00:55 Abs. Neut 17.2 k/mm3 (High)?? 05/05/2023 20:35 Abs. Lymph 0.8 k/mm3 ()?? 05/05/2023 20:35 Abs. [place] 1.4 k/mm3 (High)?? 05/05/2023 20:35 Abs. Eo 0.0 k/mm3 ()?? 05/05/2023 20:35 Abs. Baso 0.1 k/mm3 ()?? 05/05/2023 20:35 Neut % 87.3 % (High)?? 05/05/2023 20:35 Lymph % 4.2 % (Low)?? 05/05/2023 20:35 Wilkes % 7.1 % ()?? 05/05/2023 20:35 Eos % 0.2 % ()?? 05/05/2023 20:35 Baso % 0.4 % ()?? 05/05/2023 20:35 Imm Gran 0.8 % ()?? 05/05/2023 20:35 Abs. Imm Gran 0.2 k/mm3 ()?? 05/05/2023 20:35 ?? CARDIAC Nt-Probnp 259 pg/mL ()?? 05/06/2023 03:23 High Sensitivity Troponin (HSTnT) 37 ng/L (High)?? 05/06/2023 03:23 ?? CHEM GENERAL Sodium 137 mmol/L ()?? 05/08/2023 00:55 Potassium 3.7 mmol/L ()?? 05/08/2023 00:55 Chloride 96 mmol/L (Low)?? 05/08/2023 00:55 Bicarbonate Level 31 mmol/L (High)?? 05/08/2023 00:55 Anion Gap 10 ()?? 05/08/2023 00:55 Glucose Level 119 mg/dL (High)?? 05/08/2023 00:55 Glucose, POC 117 mg/dL (High)?? 05/08/2023 05:12 Hemoglobin A1C (Monitoring) 5.7 % (High)?? 05/06/2023 13:16 BUN 22 mg/dL ()?? 05/08/2023 00:55 Creatinine-Blood 0.8 mg/dL ()?? 05/08/2023 00:55 Estimated GFR Creatinine 91 ML/MIN/1.73 M2 ()?? 05/08/2023 00:55 Calcium 9.2 mg/dL ()?? 05/08/2023 00:55 C-Reactive Protein 14.5 mg/dL (High)?? 05/06/2023 13:16 Estimated Average Glucose 117 mg/dL ()?? 05/06/2023 13:16 ?? COAG D-Dimer 0.62 mg/L FEU ()?? 05/05/2023 22:38 ? HEME OTHER Hold Lavender Top SPECIMEN DISCARDED AFTER 24 HOURS. ()?? 05/06/2023 03:23 ? MISC. CHEMISTRY Procalcitonin 0.41 ng/mL ()?? 05/06/2023 13:16 Hold Gel Top SPECIMEN DISCARDED AFTER 1 WEEK ()?? 05/06/2023 03:23 ?? UA/URINALYSIS Appear/Color, Urine LIGHT YELLOW ()?? 05/06/2023 14:28 Specific [place], Urine 1.007 ()?? 05/06/2023 14:28 pH, Urine 6.5 ()?? 05/06/2023 14:28 Albumin, Urine TRACE (Abnormal)?? 05/06/2023 14:28 Glucose, Urine 3+ (Abnormal)?? 05/06/2023 14:28 Ketones, Urine NEGATIVE ()?? 05/06/2023 14:28 Bilirubin, Urine NEGATIVE ()?? 05/06/2023 14:28 Hemoglobin, Urine TRACE (Abnormal)?? 05/06/2023 14:28 Nitrite, Urine NEGATIVE ()?? 05/06/2023 14:28 Leukocyte, Urine 3+ (Abnormal)?? 05/06/2023 14:28 Urobilinogen NORMAL mg/dL ()?? 05/06/2023 14:28 WBC's, Urine >182 /HPF (High)?? 05/06/2023 14:28 RBC's, Urine 2 /HPF ()?? 05/06/2023 14:28 Bacteria SLIGHT HPF (Abnormal)?? 05/06/2023 14:28 Squamous Epith <1 /HPF ()?? 05/06/2023 14:28 Mucus SLIGHT /LPF ()?? 05/06/2023 14:28 ?? URINE OTHER Est Creatinine Clearance 77.29 mL/min ()?? 05/08/2023 01:51 ? VIROLOGY COVID-19 by RT-PCR NEGATIVE ()?? 05/05/2023 22:40 ? Microbiology ?? COVID-19 (Novel Coronavirus), Rapid PCR?? Completed?? Source: Nasal Body Site: Nose Collected Dt/Tm: 05/05/2023 22:29 Last Updated Dt/Tm: 05/05/2023 23:34 Urine Culture?? Completed?? Source: Urine Clean Catch Body Site: ?? Collected Dt/Tm: 05/06/2023 13:04 Last Updated Dt/Tm: 05/06/2023 14:28 ?SPECIMEN DESCRIPTION : URINE CLEAN CATCH/MIDSTREAMSPECIAL REQUESTS : NONECULTURE : NO GROWTHREPORT STATUS : FINAL 05/07/2023 ? Imaging(s) ?Chest 2 Views Frontal and Lat ?? 05/05/2023 23:51??by Breanna SANTIAGO, Bakari Rivera ?RESULT: Chest 2 Views Frontal and Lat Chest 2 Views Frontal and Lat ?? Hx of Present Illness: SOB started this AM 9 16 with hx of COPD. 90% on RA. From home, lives by himself. Denies CP per EMS. Progessively worsening SOB throughout the day.; Reason: Other:; Shortness of Breath, Fever; Clinical Question(s): Pneumonia ?? COMPARISON: None. ?? FINDINGS: ?? LINES AND TUBES: None. ?? LUNGS AND PLEURA: Low lung volumes with mild basilar atelectasis. Lungs are otherwise clear with no consolidation. No pleural effusion. No pneumothorax. ?? HEART, MEDIASTINUM AND DELANO: Heart is normal in size. Normal mediastinal and hilar contour. ?? BONES AND SOFT TISSUES: No acute abnormality. ?? IMPRESSION: ?? No acute abnormality. ? Patient??discussed with attending physician ?? Hortensia Hargrove, DO Internal Medicine, PGY-1 Pager [phone] ?? 30??minutes spent on discharge * Rox SANTIAGO, Fredis: PERFORM Event Display: Discharge/Transfer Note Hospital Authored Date: I have evaluated and examined the patient??on the day of service. I have discussed the care and management with the medical team. Agree with written findings, assessment and plan as outlined in residents note below. * Abeba Devine LPN: PERFORM Event Display: Patient Education/Instruction Authored Date: Inpatient Adult Discharge Instructions [address] [address] Name: EDE SANTANA : 1945 Visit: 05/06/2023 01:10:00 Current Date: 05/08/2023 11:14 Account: [id number] Inpatient Adult Discharge Instructions We would like to thank you for allowing us to assist you with your healthcare needs. The following includes patient education materials and information regarding your injury/illness. Our entire staffstrives to provide an excellent experience for our patients and their families. PLEASE ENSURE YOU FOLLOW-UP PER THE INSTRUCTIONS BELOW! ?? YOUR OPINION IS IMPORTANT TO US! Please complete the survey you may receive by mail or email. Your feedback will be used to make improvements to the healthcare experiences of our patients and their families. Surveys are administered by [employer] ?? If further treatment with your primary care physician or another doctor is recommended, it is important for you to keep the appointment. Call your primary care physician or return to the Emergency Department immediately if your condition worsens, fails to improve, or new symptoms develop. If you need to find a doctor, you can call [facility] for a referral at [phone] or toll free at [phone] or log in to [email or web address].. ?? [facility], in keeping with [facility] CENTER guidance, no longer requires face masks for staff, patientsor visitors in most situations. Similiar to time spent indoors at other locations, there is the chance that you were exposed to repiratory viruses during your time with us (such as flu or COVID-19). If you develop symptoms concerning for a viral respiratory infection, please seek testing (and treatment if indicated) from your medical provider or home test kit. ?? You can view and manage your care through the patient portal or by using a health care annie of your choosing. [employer] is a website that allows you to securely view your medical information including your hospital discharge summary, office visit summaries, medications and follow-up visits. You can also request appointments, renew medications, and request access to your medical information using a health care annie of your choosing, or just ask a question. You can enroll at [email or web address] or register during your next office visit. You have been discharged from [facility], Patient Care Unit: D3B. If you have any questions regarding these instructions after you leave, please call us and we will be happy to assist you. [facility] Your Care Team Attending Physician Rox SANTIAGO, Fredis Consulting Providers Brandon SANTIAGO, Darcy Robert Discharging Providers Hortensia Hargrove DO Reason for Admission SOB started this AM 05/05 with hx of COPD. 90% on RA. From home, lives by himself. Denies CP per EMS. Progessively worsening SOB throughout the day. Your Diagnosis Shortness of breath COPD exacerbation Pneumonia UTI (urinary tract infection) Hypertension MISTY on CPAP Tests Performed Below is a partial list of the tests performed during your hospitalization. You may have had other tests and procedures not included in this list. Please discuss all test results with your provider. Basic Metabolic Panel BUN CBC CBC w/ Differential COMPLETE URINALYSIS COVID-19 (Novel Coronavirus), Rapid PCR Creatinine CRP D Dimer ELECTROLYTES GLUCOSE POC Hemoglobin A1C w/ Estimated Glucose High??Sensitivity??Troponin T HOLD GEL TUBE HOLD LAVENDER TUBE Lytes PROBNP Procalcitonin Level Troponin T, High Sensitivity UA XR Chest 2 Views Frontal and Lat Primary Care Provider Shanita SANTIAGO , Denis Hui Advance Directive Health Care Proxy on File Yes - Health Care Proxy Discharge Vitals Temperature: 97.6 DegF Height: 174 cm Pulse Rate: 81 bpm Weight: 97.7 kg Respiratory Rate: 20 br/min Body Mass Index:??32.27 kg/m2??Critical Respiratory Rate: 18 br/min Body surface area: 2.17 Systolic Blood Pressure: 118 mm Hg ?? Systolic Blood Pressure: 118 mm Hg ?? Diastolic Blood Pressure: 62 mm Hg ?? Diastolic Blood Pressure: 62 mm Hg ?? Oxygen Saturation: 94 % ?? Studies Pending All tests and labs ordered during this hospital stay have been completed unless listed below. Please discuss all pending results with your provider listed above in these instructions. ?? Add On Lab Order Blood Culture Blood Culture #2 What to do next Instructions From Your Doctor You were admitted to the hospital for shortness of breath. During your hospitalization your recieved streoids for concern of COPD exacerbation. Additionally your urine culture and blood culture did not grow any bacteria, and your chest x-ray did not show any concern for pneumonia. ?? Please continue your home medications as prescribed Please follow up with your PCP ?? If symptoms worsen or new symptoms develop, please seek medical attention. If you do not have a PCP, please call the [facility] PCP hotline [phone]. Discharge Orders You Need to Schedule the Following Appointments Follow Up with??Shanita SANTIAGO , Denis Hui When:??Within 1 week Where: [address] [place] [id number] Discharge Medications EDE SANTANA :1945 Visit Date:05/06/2023 Medications: Please continue your medications until treatment is completed or stopped by your provider. Medications not listed below should be discontinued. Discuss any questions related to medications with your provider. What How Much When Instructions Next Dose Unchanged Albuterol (Albuterol (Eqv- ProAir HFA) 90 mcg/ inh inhalation aerosol) 2 puff(s) Inhalation Every 4 hours as needed for NEEDED FOR WHEEZING USE WITH SPACER CHAMBER. ?? as needed follow as directed Unchanged Amlodipine (amLODIPine 10 mg oral tablet) 2 tab(s) Oral Daily 05/09/23 Unchanged Aspirin (aspirin 81 mg oral delayed release tablet) 1 tab(s) Oral Daily 05/09/23 Unchanged Atorvastatin (atorvastatin 10 mg oral tablet) 1 tab(s) Oral Daily pt unsure of dose ?? 05/09/23 Unchanged budesonide/ formoterol/ glycopyrrolate (Breztri Aerosphere inhalation aerosol) 2 puff(s) Inhalation Twice a day rinse mouth and throat after use ?? 05/08/23 evening Unchanged budesonide/ formoterol/ glycopyrrolate (Breztri Aerosphere inhalation aerosol) 2 puff(s) Inhalation Twice a day rinse mouth and throat after use ?? 05/08/23 evening Unchanged Cetirizine (ZyrTEC 10 mg oral tablet) 1 tab(s) Oral Daily 05/09/23 Unchanged Chlorthalidone (chlorthalidone 25 mg oral tablet) 2 tab(s) Oral Daily 05/09/23 Unchanged EPINEPHrine (EpiPen 2-Jefferson 0.3 mg injectable kit) 0.3 Milligram Intramuscular Once follow as directed Unchanged Inulin (Fiber Choice 1.5 g oral tablet, chewable) 1 tab(s) Chew Twice a day 05/08/23 evening Unchanged Magnesium Oxide (magnesium oxide 400 mg oral tablet) 1 tab(s) Oral Daily 05/09/23 Unchanged Metformin (metFORMIN 1000 mg oral tablet) 1 tab(s) Oral Twice a day 05/08/23 evening Unchanged tafluprost ophthalmic (Zioptan 0.0015% ophthalmic solution) INSTILL ONE DROP IN BOTH EYES AT BEDTIME DIRECTED ?? follow as directed Unchanged Tamsulosin (tamsulosin 0.4 mg oral capsule) 1 capsule Oral Twice a day 05/08/23 evening Unchanged Vitamin E (vitamin E 400 iu oral capsule) 1 capsule Oral Daily 05/09/23 Test Results Below is a partial list of the most recent Laboratory test results done prior to this discharge. You may have had other tests and procedures not included in this list. Please discuss all test resultswith your provider. Est Creatinine Clearance - 77.29 mL/min (05/08/2023) Basic Metabolic Panel (05/08/2023) ???Sodium - 137 mmol/L???Potassium - 3.7 mmol/L???Chloride - 96 mmol/L???Bicarbonate Level - 31 mmol/L???Anion Gap - 10???Glucose Level - 119 mg/dL???BUN - 22 mg/dL???Creatinine-Blood - 0.8 mg/dL???Estimated GFR Creatinine - 91 ML/MIN/1.73 M2???Calcium - 9.2 mg/dL BUN (05/07/2023) ???BUN - 19 mg/dL CBC (05/08/2023) ???WBC - 14.5 k/mm3???RBC - 3.60 m/mm3???Hgb - 10.3 Gm/dL???Hct - 32.0 %???MCV - 88.9 femtoliters???MCH - 28.6 pg???MCHC - 32.2 g/dL???Platelet Count - 343 k/mm3???RDW-SD - 46.0 femtoliters???MPV - 8.5 femtoliters???Nucleated RBC (Automated) - 0.0 #/100 WBC'S???Abs. NRBC - 0.0 k/mm3 CBC w/ Differential (05/05/2023) ???WBC - 19.7 k/mm3???RBC - 3.69 m/mm3???Hgb - 10.7 Gm/dL???Hct - 33.1 %???MCV - 89.7 femtoliters???MCH - 29.0 pg???MCHC - 32.3 g/dL???Platelet Count - 350 k/mm3???RDW-SD - 47.8 femtoliters???MPV - 8.7 femtoliters???Nucleated RBC (Automated) - 0.0 #/100 WBC'S???Abs. NRBC - 0.0 k/mm3???Abs. Neut - 17.2 k/mm3???Abs. Lymph - 0.8 k/mm3???Abs. Wilkes - 1.4 k/mm3???Abs. Eo - 0.0 k/mm3???Abs. Baso - 0.1 k/mm3???Neut % - 87.3 %???Lymph % - 4.2 %???Wilkes % - 7.1 %???Eos % - 0.2 %???Baso % - 0.4 %???Imm Gran - 0.8 %???Abs. Imm Gran - 0.2 k/mm3 COMPLETE URINALYSIS (05/06/2023) ???Appear/Color, Urine - YELLOW???Specific [place], Urine - 1.011???pH, Urine - 6.0???Albumin, Urine - 1+???Glucose, Urine - NEGATIVE???Ketones, Urine - NEGATIVE???Bilirubin, Urine - NEGATIVE???Hemoglobin, Urine - 2+???Nitrite, Urine - POSITIVE???Leukocyte, Urine - 3+???Urobilinogen - NORMAL???WBC's, Urine - >182 /HPF? ?RBC's, Urine - 43 /HPF? ?Bacteria - MODERATE? ?Mucus - HEAVY COVID-19 (Novel Coronavirus), Rapid PCR (05/05/2023) ???COVID-19 by RT-PCR - NEGATIVE Creatinine (05/07/2023) ???Creatinine-Blood - 0.9 mg/dL???Estimated GFR Creatinine - 87 ML/MIN/1.73 M2 CRP (05/06/2023) ???C-Reactive Protein - 14.5 mg/dL D Dimer (05/05/2023) ???D-Dimer - 0.62 mg/L FEU ELECTROLYTES (05/06/2023) ???Sodium - 135 mmol/L???Potassium - 3.9 mmol/L???Chloride - 95 mmol/L???Bicarbonate Level - 25 mmol/L???Anion Gap - 15 GLUCOSE POC (05/08/2023) ???Glucose, POC - 117 mg/dL Hemoglobin A1C w/ Estimated Glucose (05/06/2023) ???Hemoglobin A1C (Monitoring) - 5.7 %???Estimated Average Glucose - 117 mg/dL High??Sensitivity??Troponin T (05/06/2023) ???High Sensitivity Troponin (HSTnT) - 37 ng/L HOLD GEL TUBE (05/06/2023) ???Hold Gel Top - SPECIMEN DISCARDED AFTER 1 WEEK HOLD LAVENDER TUBE (05/06/2023) ???Hold Lavender Top - SPECIMEN DISCARDED AFTER 24 HOURS. Lytes (05/07/2023) ???Sodium - 135 mmol/L???Potassium - 3.8 mmol/L???Chloride - 95 mmol/L???Bicarbonate Level - 28 mmol/L???Anion Gap - 12 PROBNP (05/06/2023) ???Nt-Probnp - 259 pg/mL Procalcitonin Level (05/06/2023) ???Procalcitonin - 0.41 ng/mL Troponin T, High Sensitivity (05/06/2023) ???High Sensitivity Troponin (HSTnT) - 32 ng/L UA (05/06/2023) ???Appear/Color, Urine - LIGHT YELLOW???Specific [place], Urine - 1.007???pH, Urine - 6.5???Albumin, Urine - TRACE???Glucose, Urine - 3+???Ketones, Urine - NEGATIVE???Bilirubin, Urine - NEGATIVE???Hemoglobin, Urine - TRACE???Nitrite, Urine - NEGATIVE???Leukocyte, Urine - 3+???Urobilinogen - NORMAL???WBC's, Urine - >182 /HPF? ?RBC's, Urine - 2 /HPF? ?Bacteria - SLIGHT? ?Squamous Epith - <1 /HPF???Mucus - SLIGHT Allergies (NKA means No Known Allergies) lisinopril??(Lip Swelling, facial swelling) Nuts??(anaph., throat swelling, face swelling) Other Food Allergy??(anaph., peanuts, legumes, throat swelling, face swelling) Percocet 5/325??(joint darío) Problems Active Problems??(3) COPD, group B, by GOLD 2017 classification?? Obese class I?? MISTY on CPAP?? Education Materials Below is the list of Educational Leaflet Providered with your Discharge Instructions. Shortness of Breath (Dyspnea)?? Chronic Lung Disease:??Controlling Stress?? Valuables and Belongings I fully understand and agree that [facility] accepts no responsibility for all my personal property including clothing, toilet articles, radios, jewelry, dentures, hearing aids, rings, money, or any other property that is in my possession or is brought to me after admission. I understand certain valuables may be placed in a hospital safe for a short period of time. I understand that the hospital is not liable for loss or damage due to accident, fire, or other natural occurrence while said property is in the safe. I accept full responsibility for any personal property that I keep with me, and will not hold the hospital responsible in case of loss or disappearance. I acknowledge that i have been encouraged to send valuables and belongings home. ?? Date for Pt to Sign Valuables/Belongings: 05/06/23 15:54:00 ?? Other Discharge Information ? Pulmonary Rehab Status?? Pulmonary Rehab Discharge Status?? CPAP/BiPAP Mask Type: Full CPAP/BiPAP Mask Size: Large Respiratory Rate: 20 br/min Respiratory Rate: 18 br/min ? Common Emergency Awareness Tips IS IT A STROKE? Act FAST and Check for these signs: FACE Does the face look uneven? ARM Does one arm drift down? SPEECH Does their speech sound strange? TIME Call at any sign of stroke ?? Heart Attack Signs Chest discomfort: Most heart attacks involve discomfort in the center of the chest and lasts more than a few minutes, or goes away and comes back. It can feel like uncomfortable pressure, squeezing, fullness or pain. Discomfort in upper body: Symptoms can include pain or discomfort in one or both arms, back, neck, jaw or stomach. Shortness of breath: With or without discomfort. Other signs: Breaking out in a cold sweat, nausea, or lightheaded. Remember, MINUTES DO MATTER. If you experience any of these heart attack warning signs, call to get immediate medical attention! ?? Smoking can increase your chances of developing chronic health problems and can cause harmful effects to other family members in your house. If you smoke, you are strongly encouraged to quit. Please call [facility] at [phone] or [phone]) or log in to [email or web address] for referrals to smoking cessation programs. ?? 422 Suicide & Crisis Lifeline is available 12/03 if you or someone you know needs to find a reason to keep living. By calling 020 you'll be connected to a skilled, trained counselor at a crisis center in your area. INPATIENT DISCHARGE INSTRUCTIONS SIGNATURE PAGE EDE SANTANA Location:[facility] Registration Date and Time:05/06/2023 01:10 EDT Primary Care Physician: Shanita SANTIAGO , Denis Hui, Attending Physician: Fredis Gramajo MD, I EDE SANTANA, have received the above patient education materials/instructions and have verbalized understanding. If ambulance or transport services are being used I further acknowledge being given a choice of service. ?? If you need to contact me, please call me at this number: . Patient/Practicing Md Anesthesiologist Name: Patient/Practicing Md Anesthesiologist Signature: Relationship to Patient: Witness Name/Signature: Date: * Hortensia Hargrove DO: PERFORM Event Display: Patient Education Leaflets Authored Date: [id number] Shortness of Breath (Dyspnea) ?? [id number] Shortness of Breath (Dyspnea) Shortness of breath is the feeling that you can't catch your breath or get enough air. It's also known as dyspnea. Dyspnea can be caused by many different conditions. They include: ??? Acute asthma attack ??? Worsening of chronic lung diseases such as chronic bronchitis and emphysema (COPD) ??? Heart failure. This is when weak heart muscle causes extra fluid to collect in the lungs. ??? Panic attacks or anxiety. Fear can cause rapid breathing (hyperventilation). ??? Pneumonia, or an infection in the lung tissue ??? Exposure to toxic substances, fumes, smoke, or certain medicines ??? Blood clot in the lung (pulmonary embolism). This is often from a piece of blood clot in adeep vein of the leg (deep vein thrombosis) that breaks off and travels to the lungs. ??? Heart attack or heart-related chest pain (angina) ??? Anemia ??? Collapsed lung (pneumothorax) ??? Dehydration ??? Based on your visit today, the exact cause of your shortness of breath is not certain. Your tests don???t show any of the serious causes of dyspnea. You may need other tests to find out if you have aserious problem. It???s important to watch for any new symptoms or symptoms that get worse. Follow up with your healthcare provider as directed. Home care Follow these tips to take care of yourself at home: ??? When your symptoms are better, go back to your usual activities. ??? If you smoke, you should stop. Join a quit-smoking program or ask your healthcare provider for help. ??? Eat a healthy diet and get plenty of sleep. ??? Get regular exercise.Talk with your healthcare provider before starting to exercise, especially if you have other medical problems. ??? Discuss with your healthcare provider about cutting down on the amount of caffeine and stimulants you consume. ?? Follow-up care Follow up with your healthcare provider, or as advised. If tests were done, you will be told if your treatment needs to be changed. You can call as directed for the results. If an X-ray was taken, you will be told of any new findings that may affect your care. ?? Call 911 Shortness of breath may be a sign of a serious medical problem. For example, it may be a problem with your heart or lungs. Call 911 if you have worsening shortness of breath or trouble breathing, especially with any of the symptoms below: ??? Shortness of breath or wheezing ??? Confusion or difficulty waking ??? Fainting or loss of consciousness ??? Fast or irregular heartbeat ??? Coughing up blood ??? Unusual pain in your chest, arm, shoulder, neck, or upper back ??? Unusual sweating ??? Feeling of doom ??? Lips or skin looks blue, purple, or herzog in color ??? Feel dizzy ?? When to seek medical advice Call your healthcare provider right away if any of these occur: ??? Redness, pain or swelling in your leg, arm, or other body area ??? Swelling in both legs or ankles ??? Fast weight gain ??? Weakness ??? Fever of 100.4??F (38??C) or higher, or as directed by your healthcare provider ?? Last Reviewed Date: 2021 ?? [id number] [employer]. All rights reserved. This information is not intended as a substitute for professional medical care. Always follow your healthcare professional's instructions. ?? * Hortensia Hargrove DO: PERFORM Event Display: Patient Education Leaflets Authored Date: [id number] Chronic Lung Disease:??Controlling Stress ?? 86151 Chronic Lung Disease:??Controlling Stress Stress and anxiety can make breathing harder. When it???s hard to breathe, it???s natural to get anxious and start to panic. This makes you even more short of breath. This sequence is known as the dyspnea cycle. It???s common among people with chronic lung disease. Talk with your healthcare provider about how you're feeling. It's important for them to understand what's going on and how it's affecting your life. Breathing training and coping methods can help you manage stress and anxiety. Understanding the cycle When you???re short of breath, your breathing muscles get tense. It???s hard to take a deep breath.You may worry that you???re not getting enough air. Then you start breathing faster. And you becomemore short of breath. You may even start to panic. This makes symptoms seem worse. Often, people with chronic lung disease try to prevent this cycle. They limit their activity, stay at home, and don't do anything that could cause shortness of breath. You don???t have to live this way.? Ways to relax When you find yourself getting stressed or anxious, make an effort to relax. Doing so will help break the dyspnea cycle. Sit in a quiet, comfortable place. Do pursed-lip and diaphragmatic breathing. You may also find these things helpful: ??? Activities that help you relax. These can include reading a good book, listening to music or relaxation tapes, practicing yoga or antonietta chi, meditating, and praying. Find things that work for you. ??? Visualization. Picture yourself in a peaceful place, suchas the beach. Feel the warm sand. Hear the waves. Smell the ocean. Doing this may help you feel more relaxed. ??? Medicines that can help make breathing easier. Your healthcare provider may advise using a bronchodilator along other relaxation methods. ?Tips To prevent shortness of breath from limiting your life: ??? Right now.??Learn to stop an attack with pursed-lip breathing, diaphragmatic breathing, and relaxation methods. If you don???t know how to do these, ask your healthcare provider. ??? In day-to-day life.??Learn to maximize your energy and to breathe during activity. This can help you do more. ??? Over time.??Start exercising. This can help your body start to handle more activity. ?? Last Reviewed Date: 2021 ?? [id number] [employer]. All rights reserved. This information is not intended as a substitute for professional medical care. Always follow your healthcare professional's instructions. ?? Consult note * Brandon SANTIAGO, Darcy Robert: PERFORM, MODIFY Event Display: Consultation Note Authored Date: [id number] Patient: ??EDE SANTANA ? Age:??77 Years?Sex:??Male?:??1945?? Chief Complaint SOB started this AM 05/05 with hx of COPD. 90% on RA. From home, lives by himself. Denies CP per EMS. Progessively worsening SOB throughout the day. Reason for Consultation Requesting Attending/Provider: Dr. Pham ?? Reason for Consult: uti ?? Source of Information: [facility], patient ?? History of Present Illness Obese pleasant 77 year old diabetic male with COPD, HTN,MISTY on CPAP, h/o BPH s/p TURP and chronic pedraza catheter who presented to the ED on 05/06 with cough and worsening shortness of breath on the day of admission with associated fatigue, anorexia, malaise, chills??with more frequent urination is smaller amounts and development of some discomfort with urination. He denied any hematuria, flank pain, suprapubic discomfort, fevers, sweats, nausea, vomiting, diarrhea, other joints pains or rash.?? Per EMS he required oxygen.?? He states he was admitted to another hospital about 3 weeks ago with hematuria and underwent ?cystoscopy and pedraza catheter placement which was removed??about a week after??discharge by [facility].?? Since then he has been passing small amounts of urine. Vitals in the ED were as follows: Temp 99,, heart rate 102, respiratory rate 24,, blood pressure 131/59, sats 99% on 3L nasal cannula O2.?? Labs showed WBC 19.7 with 87.3% neutrophils, hemoglobin 10.7, platelets 350, glucose 164, creatinine 0.9, negative COVID-19 PCR and a positive UA.?? Imaging showed negative chest x-ray. He was empirically started on ceftriaxone and azithromycin in the ED for possible pneumonia. ID is asked to help with antibiotics for possible uti.?? He is feeling much better since admit. ?? Past Medical and Surgical History: obesity, Type 2 diabetes, HTN, MISTY on CPAP,?? history of BPH s/pTURP in January 2023, excision of left elbow olecranon bursa for ? septic olecranon bursitis with draining sinus, COPD, left ankle ORIF ?? Recent Antimicrobials: -ceftriaxone -zithromax x1 ?? Medications: Reviewed ?? Antimicrobial Allergies: No known antimicrobial allergies. ?? Family History: No relevant history of infectious issues in first degree relatives. ?? Social History and Infectious Diseases Exposure History: lives on own. 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 He is a remote ex-smoker having quit years ago.?? Rare alcohol use and denies any other drug use.?? Review of Systems a full review of system was performed which was negative other than positive pertinence mentioned above?? Physical Exam Vitals & Measurements T:??98.7?F?? TMIN:??98.6?F?? TMAX:??99.1?F?? HR:??85??(Peripheral)?? RR:??23?? BP:??142/55?? SpO2:??97%?? General: Pleasant, in no apparent distress?? HEENT: PERRL, EOMI, anicteric sclera, pink conjunctiva, moist mucous membrane, no thrush, no OHL, neck supple, no cervical adenopathy CVS: RRR, S1, S2, don't appreciate m/r/g Respiratory: decreased throughout, on NC O2 but no increased work of breathing Abdomen: Soft, nontender, nondistended, bowel sounds present, obese Extremities: No cyanosis, clubbing or edema Derm: No rash Neuro: Alert and oriented x3, nonfocal exam IV: peripheral IV Assessment/Plan Pleasant obese 77 year old diabetic male with COPD, HTN,MISTY on CPAP, h/o BPH s/p TURP who presentedto the ED on 05/06 with cough and worsening shortness of breath with associated fatigue and anorexiaand progressive urinary symptoms after pedraza removal.?? History is significant as he was admitted to another hospital about 3 weeks ago with hematuria and underwent cystoscopy and pedraza catheter placement which was removed??about a week ago by Urology??discharge.??CXR doesn't show pneumonia.?? Labsshow a leucocytosis. ID is asked to help with antibiotics for?? uti. ?? PLAN: 1. already on ceftriaxone - although not clear what we are treating 2. urine culture pending 3. if worsening respiratory status to get CTA - no infiltrate on imaging - not needed at present 4. if unrevealing chest imaging, ongoing respiratory symptoms and/or fevers would consider RVP PCR panel to rule out other respiratory viral infections (not needed at present) 5. if having diarrhea with worsening leucocytosis and not on bowel regimen could also consider checking c. diff assay 6. would do bladder scan to make sure he is not retaining again 7. if any clinical worsening would ask Urology to see him ([facility]) - not needed at present time please page ID if any (+) cultures return or need help with antibiotics- otherwise will not follow regularly as just admitted and workup just starting thanks for the consult Problem List/Past Medical History Ongoing COPD, group B, by GOLD 2017 classification Obese class I MISTY on CPAP Procedure/Surgical History ???Bursectomy Olecranon (Left, Elbow) (10/30/2022) Medications Inpatient Acetaminophen Tablet, 650 mg, By Mouth, Every 4 hours, PRN Albuterol 0.083% inhalation artem, 2.5 mg= 3 mL, BAND Nebulizer, Every 4 hours, PRN Ceftriaxone Inj, 1 Gm, IVPB, Every 24 hours chlorthalidone 25 mg oral tablet, 50 mg, By Mouth, Daily Dextrose 50% Inj Syringe (25Gm), 12.5 Gm, IV Push Slowly, Every 20 minutes, PRN Dextrose 50% Inj Syringe (25Gm), 25 Gm, IV Push Slowly, Every 15 minutes, PRN Docusate Sodium Capsule, 100 mg= 1 capsule, By Mouth, 2 times a day, PRN finasteride 5 mg oral tablet, 5 mg, By Mouth, Daily Glucagon Inj, 1 mg, Intramuscular, Once, PRN Glucose Gel, 15 Gm, By Mouth, Every 20 minutes, PRN Glucose Gel, 30 Gm, By Mouth, Every 20 minutes, PRN Heparin Inj, 5000 units= 1 mL, Subcutaneous Injection, 3 times a day hydrALAZINE 25 mg oral tablet, 50 mg, By Mouth, 3 times a day Insulin LISPRO Sliding Scale, 2-10 units, Subcutaneous Injection, 3 times a day before meals Melatonin Tablet, 3 mg, By Mouth, Daily at bedtime, PRN MiraLax Powder, 17 Gm= 1 pack/packet, By Mouth, Daily, PRN NaCL 0.9% Flush, 3 mL, IV Push, Every 8 hours NaCL 0.9% Flush, 3 mL, IV Push, Every 8 hours, PRN Norvasc 10 mg oral tablet, 10 mg, By Mouth, Daily predniSONE 20 mg oral tablet, 40 mg, By Mouth, Daily Robitussin DM Liquid, 10 mL, By Mouth, Every 4 hours, PRN rosuvastatin 5 mg oral tablet, 10 mg, By Mouth, Daily Senna Tablet, 8.6 mg= 1 tablet, By Mouth, 2 times a day, PRN Simethicone Tablet, 80 mg, Chew, 3 times a day, PRN tamsulosin 0.4 mg oral capsule, 0.4 mg, By Mouth, 2 times a day Home Albuterol (Eqv-ProAir HFA) 90 mcg/inh inhalation aerosol, 2 puffs, Inhalation, Every 4 hours, PRN amLODIPine 10 mg oral tablet, 20 mg= 2 tablet, By Mouth, Daily aspirin 81 mg oral delayed release tablet, 81 mg= 1 tablet, By Mouth, Daily atorvastatin 10 mg oral tablet, 10 mg= 1 tablet, By Mouth, Daily Breztri Aerosphere inhalation aerosol, 2 puffs, Inhalation, 2 times a day, 6 refills Breztri Aerosphere inhalation aerosol, 2 puffs, Inhalation, 2 times a day chlorthalidone 25 mg oral tablet, 50 mg= 2 tablet, By Mouth, Daily EpiPen 2-Jefferson 0.3 mg injectable kit, 0.3 mg, Intramuscular, Once Fiber Choice 1.5 g oral tablet, chewable, 1.5 Gm= 1 tablet, Chew, 2 times a day magnesium oxide 400 mg oral tablet, 400 mg= 1 tablet, By Mouth, Daily metFORMIN 1000 mg oral tablet, 1000 mg= 1 tablet, By Mouth, 2 times a day tamsulosin 0.4 mg oral capsule, 0.4 mg= 1 capsule, By Mouth, 2 times a day vitamin E 400 iu oral capsule, 400 International_Units= 1 capsule, By Mouth, Daily Zioptan 0.0015% ophthalmic solution ZyrTEC 10 mg oral tablet, 10 mg= 1 tablet, By Mouth, Daily Allergies lisinopril??(Lip Swelling, facial swelling) Nuts??(anaph., throat swelling, face swelling) Other Food Allergy??(anaph., peanuts, legumes, throat swelling, face swelling) Percocet 5/325??(joint darío) Social History Alcohol Use: Current. Frequency: 1-2 times per week. Type: Liquor. Employment/School Status: Employed. Exercise Self assessment: Poor condition. Home/Environment Living situation: Home/Independent. Lives with: Alone. Nutrition/Health Diet: Regular. Substance Abuse Use: Never. Tobacco Former smoker, Tobacco user in household: No. Other: pt states he quit smoking about 24 years ago 1991. Immunizations Vaccine Date Status pneumococcal 23-valent vaccine 03/16/2012 Given Patient Care team information Care Team Personnel Name: Altagracia Fritz RN Position: [facility] RN Member Role: Primary Care Nurse Name: Shannen Molina RN Position: [facility] RN Member Role: Primary Care Nurse Name: Denis Diehl MD Position: [facility] Outreach Member Role: PCP Address: Address: [address] [place] [id number] Name: Nura Mobley RN Position: [facility] RN Member Role: Primary Care Nurse Name: Sara Valencia Position: [facility] Outreach Member Role: Primary Care Nurse Name: Lin Hicks RN Position: [facility] RN Member Role: Primary Care Nurse Name: Altagracia Boss RN Position: [facility] RN Member Role: Primary Care Nurse Name: Siobhan Ballesteros RN Position: [facility] AMB Nurse Member Role: Primary Care Nurse Name: Sara Sam RN Position: [facility] RN Member Role: Primary Care Nurse Name: Abeba Devine LPN Position: [facility] RN Member Role: Primary Care Nurse Name: Jamilah LOPEZ Attending Position: [facility] ED Medicine MD Name: Kaden Larose RN Position: [facility] ED RN W/OE and Tasks Member Role: Patient Care Provider Care Team Related Persons Name: SONAM STERN Address: home [address] [place] [address] Name: ELY SANTANA Address: home [address] [place] [address]
--- OUTSIDE RECORDS SUMMARY | 2024-04-27 21:02 | XMS_ITS | Continuity of Care Document ---
Author Organization [facility] ed[facility] Address [address] [place] [address]- Care Team Providers Care Multi Operation Forming Machine Setter Name Role Phone Shanita SANTIAGO, Denis Hui Primary Care Physician Encounter [facility] [place] Date(s): 04/10/23 - 05/10/23 [facility] [address] [place] [id number] Attending Physician: Admtr, Ar8 Admitting Physician: Admtr, Ar8 Referring Physician: Admtr, Ar8 Allergies, Adverse Reactions, Alerts Substance Reaction Severity [...] Care team information Care Team Personnel Name: [place] RN, Altagracia Position: [facility] RN Member Role: Primary Care Nurse Name: Shannen Molina RN Position: [facility] SN RN Member Role: Primary Care Nurse Name: Denis Diehl MD Position: [facility] Outreach Member Role: PCP Address: Address: [address] [place] [id number] Name: Nura Mobley RN Position: [facility] RN Member Role: Primary Care Nurse Name: Sara Valencia Position: [facility] Outreach Member Role: Primary Care Nurse Name: Lin Hicks RN Position: [facility] RN Member Role: Primary Care Nurse Name: Altagracia Boss RN Position: [facility] RN Member Role: Primary Care Nurse Name: Siobhan Ballesteros RN Position: [facility] AMB Nurse Member Role: Primary Care Nurse Name: Sara Sam RN Position: [facility] RN Member Role: Primary Care Nurse Name: Abeba Devine LPN Position: [facility] RN Member Role: Primary Care Nurse Care Team Related Persons Name: SONAM STERN Address: [address] [place] [address] Name: ELY SANTANA Address: home [address] [place] [address]
--- OUTSIDE RECORDS SUMMARY | 2024-04-27 21:02 | XMS_ITS | Continuity of Care Document ---
Author Organization [facility] ter Address [address] [place] [address]- Care Team Providers Care Mail Order Biller Name Role Phone Shanita SANTIAGO, Denis Hui Primary Care Physician Encounter [facility] Date(s): 04/17/23 - 04/17/[address] [address]- Discharge Disposition: A-D/C Walkout Attending Physician: Not on Staff, Attending MD Admitting Physician: Not on Staff, Admitting MD Referring Physician: Not on Staff, Referring [...] opioid drug. Start Date: 10/26/22 Status: Ordered rosuvastatin 10 mg oral tablet [...] Confirmed Active MISTY on CPAP Confirmed Active Vital Signs Most recent to oldest [Reference Range]: 1 Height 173 cm (04/17/23 2:07 PM) Oxygen Saturation [94-100 %] 94 % (04/17/23 2:07 PM) Pulse Rate [55-90 bpm] 87 bpm (04/17/23 2:07 PM) Blood Pressure [90-138/55-84 mm Hg] 171/ 65mm Hg *H* (04/17/23 2:07 PM) Respiratory Rate [16-30 br/min] 17 br/mi n (04/17/23 2:07 PM) Temperature [96.8-100.4 DegF] 98.6 DegF (04/17/23 2:07 PM) Mode of Delivery (Oxygen) Room air (04/17/23 2:07 PM) Blood pressure sites Arm, left (04/17/23 2:07 PM) Temperature Route Oral (04/17/23 2:07 PM) Dry Weight 98 kg (04/17/23 2:07 PM) Dry Weight Obtained Via Patient/family s tated (04/17/23 2:07 PM) Social History Social History Type Response Smoking Status Former smoker; Tobac co user in household: No; Other: pt states he quit smoking about 24 years ago 1991; entered on: 04/06/16 Sex Patient Care team information Care Team Personnel Name: Altagracia Fritz RN Position: [facility] RN Member Role: Primary Care Nurse Name: Shannen Molina RN Position: [facility] SN RN Member Role: Primary Care Nurse Name: Denis Diehl MD Position: [facility] Outreach Member Role: PCP Address: Address: [address] [place] [id number] Name: Itz OQUENDO, Nura Rivera Position: [facility] RN Member Role: Primary Care Nurse Name: Sara Valencia Position: [facility] Outreach Member Role: Primary Care Nurse Name: Siobhan Ballesteros RN Position: [facility] AMB Nurse Member Role: Primary Care Nurse Care Team Related Persons Name: SONAM STERN Address: home [address] [place] [address] Name: ELY SANTANA Address: home [address] [place] [address]
--- OUTSIDE RECORDS SUMMARY | 2024-04-27 21:02 | XMS_ITS | Continuity of Care Document ---
Author Organization [facility] ed[facility] Address [address] [place] [address]- Care Team Providers Care Music Writer Name Role Phone Shanita SANTIAGO, Denis Hui Primary Care Physician [phone] Encounter [facility] [place] Date(s): 02/24/21 - 03/26/21 [facility] [address] [place] [id number] Allergies, Adverse Reactions, Alerts Substance Reaction Severity [...] throat after use, # 1 each, Refills 0, Tot. Refills 0, Maintenance, 02/24/21 16:09:00 EDT, Powder, Route to Pharmacy Electronically, [id number], [facility]... Start Date: 02/24/21 Status: Ordered amLODIPine 10 mg oral tablet [...] 05/09/20 9:43:00 EDT, ER Tablet, [facility], 167, cm, 01/29/20 10:11:00 EDT, Height, 106.4, kg, 01/28/20 16:34:00 EDT, Dry Weight Start Date: 05/09/20 Stop Date: 05/13/20 Status: Ordered ProAir HFA 90 mcg/inh inhalation aerosol with adapter 2, puffs, Inhalation, Every 4 hours, PRN, use with spacer chamber, j44.9, # 1 each, Refills 3, Tot.Refills 3, Maintenance, 02/03/21 16:02:00 EDT, Aerosol, Route to Pharmacy Electronically, [id number], [facility]... Start Date: 02/03/21 Status: Ordered [...]
--- OUTSIDE RECORDS SUMMARY | 2024-04-27 21:02 | XMS_ITS | Continuity of Care Document ---
Author Organization [facility] ter Address [address] [place] [address]- Care Team Providers Care Security Strategist Name Role Phone Shanita SANTIAGO, Denis Hui Primary Care Physician En[place] [facility] Date(s): 05/07/20 - 05/09/[address] [address]- [facility] Encounter Diagnosis Oliguria(Final) - 05/06/20 Discharge Disposition: A-D/C Home Attending Physician: Rico Roberts MD Admitting Physician: Rylie Hinds MD Referring Physician: Not on Staff, Referring [...] Maintenance, 01/17/18 11:00:00 EDT, Powder Start Date: 5/31/18 Stop Date: 01/12/19 Status: Ordered latanoprost 0.005% [...] 05/09/20 9:43:00 EDT, ER Tablet, [facility], 167, cm, 01/29/20 10:11:00 EDT, Height, 106.4, kg, 01/28/20 16:34:00 EDT, Dry Weight Start Date: 05/09/20 Stop Date: 05/13/20 Status: Ordered ProAir HFA 90 mcg/inh inhalation aerosol with adapter 2, puffs, Inhalation, Every 4 hours, PRN, use with spacer chamber, # 3 each, Refills 1, Tot. Refills 1, Maintenance, 08/08/19 12:01:00 EST, Aerosol, Route to Pharmacy Electronically, [id number], [facility], ICD... Start Date: 08/08/19 Stop [...] 2017 classification(Confirmed) Active MISTY on CPAP(Confirmed) Active Vital Signs Most recent to oldest [Reference Range]: 1 2 3 Oxygen Saturation [94-100 %] 93 % *L* (05/09/20 8:10 AM) 96 % (05/09/20 1:00 AM) 95 % (05/08/20 7:58 PM) Pulse Rate [55-90 bpm] 88 bpm (05/09/20 8:10 AM) 76 bpm (05/09/20 1:00 AM) 79 bpm (05/08/20 7:58 PM) Blood Pressure [90-138/55-84 mm Hg] 144/68mm Hg *H* (05/09/20 8:10 AM) 121/69mm Hg (05/09/20 1:00 AM) 137/59mm Hg (05/08/20 7:58 PM) Respiratory Rate [16-30 br/min] 18 br/min (05/09/20 8:10 AM) 18 br/min (05/09/20 1:00 AM) 18 br/min (05/08/20 7:58 PM) Temperature [96.8-100.4 DegF] 97.3 DegF (05/09/20 8:10 AM) 98.7 DegF (05/09/20 1:00 AM) 98.8 DegF (05/08/20 7:58 PM) Liters per Minute 2 L/min (05/09/20 1:00 AM) 2 L/min (05/08/20 7:58 PM) Mode of Delivery (Oxygen) Room air (05/09/20 8:10 AM) Nasal cannula (05/09/20 1:00 AM) Nasal cannula (05/08/20 7:58 PM) Blood pressure sites Arm, right (05/09/20 8:10 AM) Arm, right (05/09/20 1:00 AM) Arm, right (05/08/20 7:58 PM) Temperature Route Oral (05/09/20 8:10 AM) Oral (05/09/20 1:00 AM) Oral (05/08/20 7:58 PM) Social History Social History Type Response Smoking Status Former smoker; Tobac co user in household: No; Other: pt states he quit smoking about 24 years ago 1991; entered on: 04/06/16 Sex
--- OUTSIDE RECORDS SUMMARY | 2024-04-27 21:02 | XMS_ITS | Continuity of Care Document ---
Author Organization [facility] Address [address] [place] [address]- Care Team Providers Care Derrick Hand Name Role Phone Shanita SANTIAGO, Denis Hui Primary Care Physician [phone] Encounter [facility] Date(s): 10/05/22 - 11/04/22 [facility] [address] [place] [address]- Allergies, Adverse Reactions, Alerts Substance Reaction Severity [...] 11:04:00 EDT Start Date: 01/23/20 Status: Ordered Fiber Choice 1.5 g oral [...] Gm, Refills 3, Route to Pharmacy Electronically, [id number], [facility], 172, cm, [...] BEDTIME DIRECTED Start Date: 09/07/21 Status: Ordered Problem List Condition Confirmation Course [...] Team Personnel Name: Altagracia Fritz RN Position: [facility] RN Member Role: Primary Care Nurse Name: Shannen Molina RN Position: [facility] RN Member Role: Primary Care Nurse Name: Denis Diehl MD Position: [facility] Outreach Member Role: PCP Address: Address: [address] [place] [address]- Name: Itz OQUENDO, Nura Rivera Position: [facility] ED RN W/OE and Tasks Member Role: Primary Care Nurse Name: Sara Valencia Position: [facility] Outreach Member Role: Primary Care Nurse Name: Siobhan Ballesteros RN Position: [facility] RN Member Role: Primary Care Nurse Care Team Related Persons Name: SONAM STERN Address: [address] [place] [address] Name: ELY SANTANA Address: [address] [place] [address]
--- OUTSIDE RECORDS SUMMARY | 2024-04-27 21:02 | XMS_ITS | Continuity of Care Document ---
Author Organization [facility] Address [address] [place] [address]- Care Team Providers Care Scarfer Operator Name Role Phone Shanita SANTIAGO, Denis Hui Primary Care Physician Encounter [facility] [id number] Date(s): 10/05/22 - 11/12/22 [facility] [address] [place] [address]- Attending Physician: Nura Jewell MD Admitting Physician: Nura Jewell MD Referring Physician: Nura Jewell MD Allergies, Adverse Reactions, Alerts Substance Reaction [...] Gm, Refills 3, Route to Pharmacy Electronically, [id number], [facility], 172, cm, [...] Team Personnel Name: Altagracia Fritz RN Position: [facility] RN Member Role: Primary Care Nurse Name: Shannen Molina RN Position: [facility] SN RN Member Role: Primary Care Nurse Name: Denis Diehl MD Position: [facility] Outreach Member Role: PCP Address: Address: [address] [place] [phone] Name: Nura Mobley RN Position: [facility] RN Member Role: Primary Care Nurse Name: Sara Valencia Position: [facility] Outreach Member Role: Primary Care Nurse Name: Siobhan Ballesteros RN Position: [facility] RN Member Role: Primary Care Nurse Care Team Related Persons Name: JARRED SONAM Address: home [address] [place] [address] Name: ELY SANTANA Address: [address] [place] [address]
--- OUTSIDE RECORDS SUMMARY | 2024-04-27 21:02 | XMS_ITS | Continuity of Care Document ---
Author Organization [facility] ter Address [address] [place] [address]- Care Team Providers Care Ap Operator Name Role Phone Shanita SANTIAGO, Denis Hui Primary Care Physician [phone] Encounter [facility] Date(s): 01/11/20 - 01/12/[address] [address] [place] Encounter Diagnosis UTI (urinary tract infection)(Final) - 01/11/20 Discharge Disposition: A-D/C Home Attending Physician: Chicho Quiñones MD Admitting Physician: Kwabena Abebe MD Referring Physician: Not on Staff, Referring [...] 11:19:56 EST, Powder, Route to Pharmacy Electronically, [id number], [facility]... Start Date: 06/25/18 Stop Date: 06/20/19 Status: Ordered amLODIPine 5 mg oral tablet 5 mg, By Mouth, Daily, # 30 tablet, Refills 0, Tot. Refills 0, Soft Stop, 11/13/15 9:51:57, Route to Pharmacy Electronically, [id number], [facility] Start Date: 11/13/15 Stop Date: 12/13/15 Status: Ordered Aspir 81 1 each, By Mouth, Daily, 0 Refills, Soft Stop, 04/25/09 23:37:07 EDT Start Date: 04/25/09 Stop Date: 05/25/09 Status: Ordered Augmentin 875 mg-125 mg oral tablet 1 tablet, By Mouth, Every 12 hours, for 7 days, # 14 tablet, 0 Refills, Acute 01/19/20 12:40:00 EDT, 01/12/20 12:40:00 EDT, Tablet, [facility], 173, cm, 07/01/19 9:23:00 EST, Height Start Date: 01/12/20 Stop Date: 01/19/20 Status: Ordered Incruse Ellipta 62.5 mcg/inh inhalation [...] 12:01:00 EST, Aerosol, Route to Pharmacy Electronically, [id number], [facility], ICD... 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 SPECIAL REQUESTS : NONE Reflexed from [id number] CULTURE : Mixed bacterial tres, characteristic of urogenital contamination. Please consult laboratory ([id number]) within 24 hours of receipt of result if more definitive studies may be clinically indicated. REPORT STATUS : FINAL 01/12/2020 Vital Signs Most recent to oldest [Reference Range]: 1 2 3 Oxygen Saturation [94-100 %] 97 % (01/12/20 12:50 PM) 99 % (01/12/20 10:45 AM) 96 % (01/12/20 8:23 AM) Pulse Rate [55-90 bpm] 105 bpm *H* (01/12/20 12:50 PM) 97 bpm *H* (01/12/20 10:45 AM) 96 bpm *H* (01/12/20 8:23 AM) Blood Pressure [90-138/55-84 mm Hg] 173/75mm Hg *H* (01/12/20 12:50 PM) 130/66mm Hg (01/12/20 10:45 AM) 159/76mm Hg *H* (01/12/20 8:23 AM) Respiratory Rate [16-30 br/min] 16 br/min (01/12/20 12:50 PM) 20 br/min (01/12/20 10:45 AM) 20 br/min (01/12/20 8:23 AM) Temperature [96.8-100.4 DegF] 98.6 DegF (01/12/20 12:50 PM) 98.1 DegF (01/12/20 8:23 AM) 98 DegF (01/12/20 2:10 AM) Mode of Delivery (Oxygen) Room air (01/12/20 12:50 PM) Room air (01/12/20 10:45 AM) Room air (01/12/20 8:23 AM) Blood pressure sites Arm, right (01/12/20 12:50 PM) Arm, left (01/12/20 10:45 AM) Arm, left (01/12/20 8:23 AM) Temperature Route Oral (01/12/20 12:50 PM) Oral (01/12/20 8:23 AM) Oral (01/12/20 2:10 AM) Social History Social History Type Response Smoking Status Former smoker; Tobac co user in household: No; Other: pt states he quit smoking about 24 years ago 1991; entered on: 04/06/16 Sex
--- OUTSIDE RECORDS SUMMARY | 2024-04-27 21:03 | XMS_ITS | Continuity of Care Document ---
Author Organization [facility] Address [address] [place] [phone]- Care Team Providers Care Motorcycle Fabricator Name Role Phone Shanita SANTIAGO, Denis Hui Primary Care Physician En[place] [facility] Date(s): 05/23/23 - 06/22/23 [facility] [address] [place] [id number] Allergies, Adverse Reactions, Alerts Substance Reaction Severity Status lisinopril Lip Swelling facial swelling Persistent Severe Active Percocet 325 joint darío Active Nuts anaph. throat swelling face swelling [...] Care team information Care Team Personnel Name: Lam OQUENDO, Altagracia Position: [facility] RN Member Role: Primary Care Nurse Name: Shannen Molina RN Position: [facility] SN RN Member Role: Primary Care Nurse Name: Denis Diehl MD Position: [facility] Outreach Member Role: PCP Address: Address: [address] [place], [place] [address] Name: Nura Mobley RN Position: [facility] RN Member Role: Primary Care Nurse Name: Sara Valencia Position: [facility] Outreach Member Role: Primary Care Nurse Name: Lin Hicks RN Position: [facility] RN Member Role: Primary Care Nurse Name: Altagracia Boss RN Position: [facility] RN Member Role: Primary Care Nurse Name: Siobhan Ballesteros RN Position: [facility] AMB Nurse Member Role: Primary Care Nurse Name: Sara Sam RN Position: [facility] RN Member Role: Primary Care Nurse Name: Abeba Devine LPN Position: [facility] RN Member Role: Primary Care Nurse Care Team Related Persons Name: SONAM STERN Address: home [address] [place] [address] Name: ELY SANTANA Address: [address] [place] [address]
--- OUTSIDE RECORDS SUMMARY | 2024-04-27 21:03 | XMS_ITS | Continuity of Care Document ---
Author Organization [facility] Address [address] [place] [address]- Care Team Providers Care Cmm Inspector Name Role Phone Shanita SANTIAGO, Denis Hui Primary Care Physician Encounter [facility] Date(s): 10/04/21 - 11/03/21 [facility] [address] [place] [address] Allergies, Adverse Reactions, Alerts Substance Reaction Severity Status lisinopril facial swelling Persistent Severe Active Percocet 5/325 joint darío Active Nuts anaph. throat swelling face swelling Active Other Food Allergy anaph. peanuts, legumes throat swelling face swelling Active Immunizations Given and Recorded Vaccine Date Status Refusal Reason pneumococcal 23-valent vaccine 03/16/12 Given Medications Advair Diskus 500 mcg-50 mcg inhalation powder 1, inhalation, Inhalation, 2 times a day, rinse mouth and throat after use, j44.9, # 1 each, Refills 6, Tot. Refills 6, Maintenance, 10/05/21 12:31:00 EST, Powder, Route to Pharmacy Electronically, [id number], [facility] Start Date: 10/05/21 Status: Ordered amLODIPine 10 mg oral tablet [...] 05/09/20 9:43:00 EDT, ER Tablet, [facility], 167, cm, 01/29/20 10:11:00 EDT, Height, 106.4, kg, 01/28/20 16:34:00 EDT, Dry Weight Start Date: 05/09/20 Stop Date: 05/13/20 Status: Ordered ProAir HFA 90 mcg/inh inhalation aerosol with adapter 2, puffs, Inhalation, Every 4 hours, PRN, use with spacer chamber, j44.9, # 1 each, Refills 3, Tot.Refills 3, Maintenance, 02/03/21 16:02:00 EDT, Aerosol, Route to Pharmacy Electronically, [id number], [facility]... 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
--- OUTSIDE RECORDS SUMMARY | 2024-04-27 21:03 | XMS_ITS | Continuity of Care Document ---
Author Organization [facility] Address [address] [place] [address]- Care Team Providers Care Entertainer Or Variety Artist Name Role Phone Shanita SANTIAGO, Denis Hui Primary Care Physician Encounter [facility] Date(s): 02/24/21 - 03/26/21 [facility] [address] [place] [address]- Allergies, Adverse Reactions, Alerts Substance Reaction Severity [...] 16:09:00 EDT, Powder, Route to Pharmacy Electronically, [id number], [facility]... Start Date: [...] Refills, Maintenance, 05/09/20 9:43:00 EDT, ER Tablet, [facility], 167, cm, 01/29/20 10:11:00 EDT, Height, 106.4, kg, 01/28/20 16:34:00 EDT, Dry Weight Start Date: 05/09/20 Stop Date: 05/13/20 Status: Ordered ProAir HFA 90 mcg/inh inhalation aerosol with adapter 2, puffs, Inhalation, Every 4 hours, PRN, use with spacer chamber, j44.9, # 1 each, Refills 3, Tot.Refills 3, Maintenance, 02/03/21 16:02:00 EDT, Aerosol, Route to Pharmacy Electronically, [id number], [facility]... Start Date: 02/03/21 Status: Ordered [...]
--- OUTSIDE RECORDS SUMMARY | 2024-04-27 21:03 | XMS_ITS | Continuity of Care Document ---
Author Organization [facility] ter Address [address] [place] [address]- Care Team Providers Care Seam Press Operator Name Role Phone Denis Diehl MD Primary Care Physician [phone] Encounter [facility] Date(s): 09/18/19 - 12/12/[address] [address]- [facility] Attending Physician: Taqueria Conner MD Allergies, Adverse [...] 11:19:56 EST, Powder, Route to Pharmacy Electronically, [id number], [facility]... Start Date: 06/25/18 Stop Date: 06/20/19 Status: Ordered amLODIPine 5 mg oral tablet 5 mg, By Mouth, Daily, # 30 tablet, Refills 0, Tot. Refills 0, Soft Stop, 11/13/15 9:51:57, Route to Pharmacy Electronically, [id number], [facility] Start Date: [...] Maintenance, 11/13/15 9:51:51, Route to Pharmacy Electronically, [id number], [facility] Start Date: [...] Refills 0, Maintenance, 11/12/15 13:43:36 Start Date: 3/25/16 Status: Ordered Multivitamin By Mouth, Daily, 0 [...] 12:01:00 EST, Aerosol, Route to Pharmacy Electronically, [id number], [facility], ICD... Start Date: 08/08/19 Stop Date: 02/04/20 Status: Ordered ProAir HFA 90 mcg/inh inhalation aerosol with adapter 2, puffs, Inhalation, Every 6 hours, PRN, use with spacer chamber, # 1 each, Refills 11, Tot. Refills 11, Maintenance, 06/25/18 11:10:09 EST, Aerosol, Route to Pharmacy Electronically, [id number], [facility] Start Date: [...]
--- OUTSIDE RECORDS SUMMARY | 2024-04-27 21:03 | XMS_ITS | Continuity of Care Document ---
Author Organization [facility] ter Address [address] [place] [address]- Care Team Providers Care Pastoral Counselor Name Role Phone Shanita SANTIAGO, Denis Hui Primary Care Physician Encounter [facility] Date(s): 01/28/20 - 01/29/[address] [address]- [facility] Discharge Disposition: A-D/C Home Attending Physician: Taqueria Conner MD Admitting Physician: Taqueria Conner MD Referring Physician: Taqueria Conner MD Allergies, Adverse Reactions, [...] 12:01:00 EST, Aerosol, Route to Pharmacy Electronically, [id number], [facility], ICD... Start Date: 08/08/19 Stop Date: 02/04/20 Status: Ordered Pyridium 100 mg oral tablet 1 tablet = 100 mg, By Mouth, 3 times a day, for 3 days, with food, # 9 tablet, 0 Refills, Acute 02/01/20 12:52:00 EDT, 01/29/20 12:52:00 EDT, Tablet Start Date: 01/29/20 Stop Date: 02/01/20 Status: Ordered rosuvastatin 10 mg oral tablet [...] oldest [Reference Range]: 1 2 3 Height 167 cm (01/29/20 10:11 AM) 167 cm (01/29/20 8:07 AM) 167 cm (01/29/20 4:55 AM) Weight 106.4 kg (01/28/20 4:34 PM) 103 kg (01/28/20 11:15 AM) 104.5 kg (01/23/20 11:18 AM) Oxygen Saturation [94-100 %] 94 % (01/29/20 10:11 AM) 94 % (01/29/20 8:07 AM) 97 % (01/29/20 4:55 AM) Pulse Rate [55-90 bpm] 99 bpm *H* (01/29/20 10:11 AM) 92 bpm *H* (01/29/20 8:07 AM) 72 bpm (01/29/20 4:55 AM) Body Mass Index [18.5-24.99] 38.15 *>HHI* (01/28/20 4:34 PM) 36.93 *>HHI* (01/28/20 11:15 AM) 34.52 *>HHI* (01/23/20 11:18 AM) Blood Pressure [90-138/55-84 mm Hg] 143/57mm Hg *H* (01/29/20 10:11 AM) 145/61mm Hg *H* (01/29/20 8:49 AM) 145/61mm Hg *H* (01/29/20 8:07 AM) Respiratory Rate [16-30 br/min] 18 br/min (01/29/20 10:11 AM) 18 br/min (01/29/20 8:07 AM) 19 br/min (01/29/20 4:55 AM) Temperature [96.8-100.4 DegF] 98.1 DegF (01/29/20 10:11 AM) 98.6 DegF (01/29/20 8:07 AM) 98.1 DegF (01/29/20 4:55 AM) Liters per Minute 2 L/min (01/29/20 8:07 AM) 2 L/min (01/29/20 4:55 AM) 2 L/min (01/28/20 7:26 PM) Mode of Delivery (Oxygen) Room air (01/29/20 10:11 AM) Nasal cannula (01/29/20 8:07 AM) Nasal cannula (01/29/20 4:55 AM) Blood pressure sites Arm, right (01/29/20 10:11 AM) Arm, right (01/29/20 8:07 AM) Arm, right (01/29/20 4:55 AM) Temperature Route Oral (01/29/20 10:11 AM) Oral (01/29/20 8:07 AM) Oral (01/29/20 4:55 AM) Dry Weight 106.4 kg (01/28/20 4:34 PM) 104.5 kg (01/23/20 11:18 AM) Weight Obtained Via Bed scale (01/28/20 4:34 PM) Standing scale (01/28/20 11:15 AM) Patient/family stated (01/23/20 11:18 AM) Dry Weight Obtained Via Bed scale (01/28/20 4:34 PM) Patient/family stated (01/23/20 11:18 AM) Social History Social History Type Response Smoking Status Former smoker; Tobac co user in household: No; Other: pt states he quit smoking about 24 years ago 1991; entered on: 04/06/16 Sex
--- OUTSIDE RECORDS SUMMARY | 2024-04-27 21:03 | XMS_ITS | Continuity of Care Document ---
Author Organization [facility] Address [address] [place] [address]- Care Team Providers Care Lamp Tester And Inspector Name Role Phone Shanita SANTIAGO, Denis Hui Primary Care Physician Encounter [facility] Date(s): 06/27/22 - 07/27/22 [facility] [address] [place] [address] Allergies, Adverse Reactions, Alerts Substance [...] 10:59:00 EDT Start Date: 01/23/20 Status: Ordered Azithromycin 5 Day Dose Pack 250 mg oral tablet 1 pack/packet, By Mouth, Once, as directed on package labeling, # 6 tablet, 0 Refills, Soft Stop, 03/08/22 9:21:00 EDT, Tablet, [facility], Partial fill upon patient request if theprescription is for a schedule II opioid drug., 172, cm... Start Date: 03/08/22 Status: Ordered Breztri Aerosphere inhalation aerosol 2 puffs, Inhalation, 2 times a day, rinse mouth and throat after use, # 1 each, 6 Refills, Maintenance, 03/08/22 9:17:00 EDT, Aerosol, [facility], Replacing Wixella and Incruse., 2puffs Inhalation 2 times a day,Instr:rinse mouth and th... Start Date: 03/08/22 Status: Ordered chlorthalidone 25 mg oral tablet [...] 3:49:06 EDT Start Date: 03/15/12 Status: Ordered ProAir HFA 90 mcg/inh inhalation aerosol with adapter 2, puffs, Inhalation, Every 4 hours, PRN, USE WITH SPACER CHAMBER., # 8.5 Gm, Refills 3, Route to Pharmacy Electronically, [id number], [facility] 172, cm, 09/07/21 15:02:00 EST, Height Start Date: 02/17/22 Status: Ordered Proventil HFA 90 mcg/inh inhalation aerosol with adapter 2, puffs, Inhalation, 4 times a day, PRN, j44.9, # 1 each, Refills 6, Tot. Refills 6, Maintenance, 06/27/22 15:34:00 EST, Aerosol, Route to Pharmacy Electronically, [id number], [facility], 172, cm, 03/08/22 8:5... Start Date: 06/27/22 Status: Ordered rosuvastatin 10 mg oral tablet [...] Care Nurse Name: Shannen Molina RN Position: S RN Member Role: Primary Care Nurse Name: Denis Diehl MD Position: S Outreach Member Role: PCP Address: Address: [address] [place] [address] Name: Nura Mobley RN Position: S RN Member Role: Primary Care Nurse Name: Sara Valencia Position: S Outreach Member Role: Primary Care Nurse Name: Siobhan Ballesteros RN Position: S RN Member Role: Primary Care Nurse Care Team Related Persons Name: SONAM STERN Address: home [address] [place] [address] Name: ELY SANTANA Address: home [address] [address]
--- OUTSIDE RECORDS SUMMARY | 2024-04-27 21:03 | XMS_ITS ---
Author Organization [facility] Address [address] [place] [address] Care Team Providers Care Lead Nurse Name Role Phone Denis Diehl Primary Care Provider Unavailab Gary Mon Unavailable [phone] REASON FOR VISIT screening,hx polyps Encounters Encounter Location Date Provider Diagnosis [facility] Outpatient [address] [place], [place] [id number] 11/01/2022 Gary San PLAN OF TREATMENT No Information
--- OUTSIDE RECORDS SUMMARY | 2024-04-27 21:03 | XMS_ITS ---
Author Organization [facility] Address [address] [place] [address] Care Team Providers Care Biomedical Specialist Name Role Phone Denis Diehl Primary Care Provider Unavailab Gary Mon Unavailable [phone] REASON FOR VISIT rescheduled colon with mac Encounters Encounter Location Date Provider Diagnosis [facility] [address] [place] [address] 01/01/2023 Gary San PLAN OF TREATMENT No Information
--- OUTSIDE RECORDS SUMMARY | 2024-04-27 21:03 | XMS_ITS ---
Author Organization [facility] Address [address] [place] [address] Care Team Providers Care Flat Lock Operator Name Role Phone Denis Diehl Primary Care Provider Unavailab Gary Mon Unavailable [phone] REASON FOR VISIT colon screening PROBLEMS Problem Type ICD Code Onset Dates Problem Status W/U Status Risk SNOMED Code Notes Problem Diverticulosis of colon (K57.30) Active confirmed Diverticulosi s of colon (753078917) Encounters Encounter Location Date Provider Diagnosis [facility] Out[place] [address] [place] [id number] 03/19/2023 Gary San Colon cancer scree jag Z12.11 ; Colon polyps K63.5 ; Diverticulosis of colon K57.30 and Internal hemorrhoids K64.8 ASSESSMENTS Encounter Date Diagnosis Assessment Notes Treatment Notes Treatment Clinical Notes 03/19/2023 Colon cancer screening (ICD-10 - Z12.11) 03/19/2023 Colon polyps (ICD-10 - K63.5) 03/19/2023 Diverticulosis of colon (ICD-10 - K57.30) 03/19/2023 Internal hemorrhoids (ICD-10 - K64.8) PLAN OF TREATMENT No Information
--- OUTSIDE RECORDS SUMMARY | 2024-04-27 21:04 | XMS_ITS | Patient Health Record ---
Author Organization [facility] Address [address] [place] [address] Care Team Providers Care Utilities Estimator And Drafter Name Role Phone Denis Diehl Primary Care Provider UnavailGary Duarte Unavailable [phone] ALLERGIES Allergen (clinical drug ingredient) Drug/Non Drug Allergy documented on EMR Reaction Allergy Type Onset Date Status acetaminophen / oxycodone Percocet Unknown Drug Allergy Active lisinopril Lisinopril lip swollen Drug Allergy Act mauricio REASON FOR REFERRAL No Information MEDICATIONS Medication SIG (Take, Route, Frequency, Duration) Notes Start Date End Date Status metFORMIN HCl 1000 MG 1 tablet with a me al Orally twice a day Active amLODIPine Besylate 10 MG 1 tablet Orall y Once a day Active Tamsulosin HCl 0.4 MG 1 capsule Orally O nce a day Active Rosuvastatin Calcium 10 MG 1 tablet Oral ly Once a day Active Aspir-81 81 MG 1 tablet Orally Once a day Active MoviPrep 100 GM as directed Orally 06/09/2011 Not-Taking Pravastatin Sodium N ot-Taking Multi Vitamin/Minerals Not-Taking Albuterol Sulfate HFA 108 (90 Base) MCG/ACT INHALE 2 PUFFS FOUR TIMES A DAY NEEDED FOR WHEEZING Inhalation for 25 Active Breztri Aerosphere 160-9-4.8 MCG/ACT INHALE TWO PUFFS BY MOUTH TWICE A DAY . RINSE MOUTH AND THROAT AFTER USE Inhalation for 30 Active Chlorthalidone 50 MG TAKE ONE TABLET BY MOUTH EVERY MORNING WITH FOOD Oral for 90 Active hydrALAZINE HCl 25 MG TAKE ONE TABLET BY MOUTH THREE TIMES A DAY Oral for 30 Active IMMUNIZATIONS Vaccine Route Administration Date Status Comme nts Influenza Unknown 04/20/2016 Administered Influenza Unknown 06/02/2020 Administered Influenza Unknown 06/20/2022 Administered SOCIAL HISTORY Sex Assigned At : Social History Observation Description Sex Assigned At Unknown Alcohol Screen Question Answer Notes Did you have a drink contain ing alcohol in the past year? Yes How often did you have a dri nk containing alcohol in the past year? 2 to 4 times a month (2 points) How many drinks did you have on a typical day when you were drinking in the past year? 1 or 2 drinks (0 point) How often did you have 6 or more drinks on one occasion in the past year? Never (0 point) Points 2 Interpretation Negative PROBLEMS Problem Type ICD Code Onset Dates Problem Status W/U Status Risk SNOMED Code Notes Problem Encounter for screening for malignant neoplasm of colon (Z12.11) Active confirmed 193988932 Problem History of adenomatous polyp of colon (Z86.010) Active confirmed 659463165 Problem Encounter for screening for malignant neoplasm of rectum (Z12.12) Active confirmed Screening fo r malignant neoplasm of rectum (829835840) Problem Long-term use of aspirin therapy (Z79.82) Active confirmed 099953503 Problem Constipation, unspecified constipation type (K59.00) Active confirmed 90939898 Problem Diverticulosis of colon (K57.30) Active confirmed Diverticulosi s of colon (704193760) PLAN OF TREATMENT Pending Test Test Name Order Date Pathology 03/19/2023 Future Test Test Name Order Date COLONOSCOPY 06/09/2011 COLONOSCOPY 11/28/2016 COLONOSCOPY 07/06/2022 Insurance Providers Payer Name Payer Address Payer Phone Subscriber Number Group Number Insured Name Patient Relationship to Insured Coverage Start Date Coverage End Date MEDICARE OF [place] [address] [place] [address] [id number] MAX EDE Self - patient is the insured [facility] SUPPLEMENTAL PLAN [address] [place] [id number] EDE SANTANA Self - patient is the insured MEDICAL (GENERAL) HISTORY Medical History History ICD Code Tubular adenomas removed in 2000, 2002, and 2005--he had a negative colonoscopy in 08/2011 except for some diverticulosis and internal hemorrhoids. Colonoscopy 02/2017 with small tubular adenomas removed. Asthma/COPD Hyperlipidemia NIDDM Hypertension He denies any history of HI, stroke, nor kidney disease Sleep apnea-uses CPAP BPH Surgical History Surgery Date(Month/Year) Cataracts/Lens implants Right hand surgery Left ankle surgery Left carotid artery 2016 TURP 2019
[2024-04-27] MEDS: vancomycin/NS 2,000 MG/500 ML PLAST..BAG 250 MG IV (21:31)
[2024-04-27] MEDS: 0.9 % Sodium Chloride Flush 3 ML SYRINGE IVFLUSH (21:36)
--- NOTE | 2024-04-27 21:41 | P.HPHOSP_ITS ---
History of Present Illness Date of Service: 04/27/24 Attending physician on admission: Abhishek Madden Chief Complaint: Left great toe swelling and pain Pt is a 78-year-old male with a PMH significant for?HTN, CAD, COPD, peripheral vascular disease, left carotid endarterectomy, pxm-kemyjjf-zrlqqxerq type 2 diabetes, BPH s/p TURP, and MISTY on CPAP who originally presented to [facility] in [place] 3 days prior for evaluation of left toe swelling, pain, and redness. Patient states he was using scissors to trim skin on his left foot when he cut his toe and it started to bleed. A few days later toe began to swell, turn red, and was painful. Eventual redness and swelling began to go up patient's left leg and he went to see a complaint analyst who prescribed him doxycycline. Patient was on antibiotics for 5-7 days with worsening symptoms so patient decided to go to [place] ED for further evaluation. Was started on vanc and Zosyn for 3 days. Received an MRI that showed peripherally enhancing abscess collection within the soft tissues along the medial aspect of great toe interphalangeal joint with enhancing IP joint effusion suggestive of septic arthritis, and likely mild acute osteomyelitis. According to patient, [facility] could not get a surgeon until later in the week, so they reached out Dr. Del Castillo in vascular surgery here at [facility] since he had performed patient's left endarterectomy. Dr. Del Castillo was able to bring patient to the OR tomorrow and so patient's transfer was arranged. Currently patient states his left great toe feels much better with improvement to swelling, redness, and pain since being on IV antibiotics. Reports he feels ?great? otherwise without any acute medical complaints. Denies fever or chills. No knee or calf pain. Denies nausea, vomiting, abdominal pain. No chest pain/pressure, palpitations. Denies shortness of breath or difficulty breathing. Patient is being admitted to the hospital for treatment and further evaluation of left great toe osteomyelitis with abscess and septic arthritis. Review of Systems 2 Review of Systems: Improvement to left great toe swelling, erythema, and pain Pt otherwise has no acute medical complaints [facility] Medical History COVID Benign prostatic hyperplasia with urinary obstruction MISTY on CPAP Bifascicular block Atherosclerotic cardiovascular disease COPD (chronic obstructive pulmonary disease) Carotid stenosis Hypertension Diabetes Hypercholesteremia Family History Father CVD (cardiovascular disease) Mother No problems noted. Sister Cancer Sister Cancer Surgical History H/O colonoscopy Hx of elbow surgery History of eyelid surgery S/P TURP (status post transurethral resection of prostate) (~2019) Status post carotid surgery Hx of cataract Social History Household Members: None Housing: Apartment Do you presently have visiting nurse or other home services: No Alcohol intake: never Comment: pt. is ambulatory, steady on foot. Patient Tobacco Use Status: Former Tobacco user e-Cigarette/Vaping Use: Never Used Second Hand Smoke Exposure: No Use of substances other than those prescribed or required for medical reasons: No Have you been hit, kicked, punched, or otherwise hurt by someone within the past year? If so, by whom?: No Do you feel safe in your current relationship?: Yes Is there a partner from a previous relationship who is making you feel unsafe now?: No Are you made to feel afraid or neglected: No Advance Directives: Yes Advance Directives Information Provided: No Advance Directives on File: No Advance Directives Date on File: 04/27/24 Do you have a plan to hurt others: No Plan Recently lost weight without trying: No Nutrition Risks: No Nutritional Risk service: No Current occupational status: retired Current occupational exposures/hazards: No Cognitive needs: No Hearing needs: No Vision needs: No Meds Allergies Allergy/AdvReac Type Severity Reaction Status Date / Time SADI Inhibitors Allergy Unknown FACIAL Verified 03/31/24 11:39 [SADI INHIBITORS] SWELLING lisinopril [LISINOPRIL] Allergy Unknown FACIAL Verified 03/31/24 11:39 SWELLING, hives, lip edema oxycodone [From PERCOCET] Allergy Unknown JOINT Verified 03/31/24 11:39 STIFFNESS peanut [PEANUTS] Allergy Unknown SWELLING,TH Verified 03/31/24 11:39 ROAT,HIVES Active Medications: Current Medications Acetaminophen (Acetaminophen 325 Mg Tablet) 650 mg PO Q6H PRN PRN Reason: Pain, Mild (Pain Scale 1-3), fever or headache Calcium Carbonate (Calcium Carbonate 750 Mg Tab.Chew) 750 mg PO Q4H PRN PRN Reason: Heartburn Glucose (Glucose Gel 15 Gm Gel..Gram.) 15 gm PO Q15M PRN; Protocol PRN Reason: per Hypoglycemia Standing Ord. Dextrose (D10) 250 mls @ 750 mls/hr IV Q15M PRN; Protocol PRN Reason: per Hypoglycemia Standing Ord. Vancomycin HCl (Vancomycin/Ns) 2,000 mg in 500 mls @ 250 mls/hr IV ONCE ONE Stop: 04/27/24 23:10 Last Admin: 04/27/24 21:31 Dose: 250 mls/hr Piperacillin Sod/Tazobactam (Sod 3.375 gm/ Sodium Chloride) 50 mls @ 100 mls/hr IV Q6H [facility] Insulin Human Lispro (Insulin Lispro 100 Unit/Ml 3 Ml Vial) [facility]; Protocol Magnesium Hydroxide (Milk Of Magnesia 30 Ml Oral.Susp) 30 ml PO DAILY PRN PRN Reason: Constipation Melatonin (Melatonin 3 Mg Tablet) 6 mg PO BEDTIME PRN PRN Reason: Insomnia Ondansetron HCl (Ondansetron Hcl 4 Mg/2 Ml Vial) 4 mg IVPUSH Q8H PRN PRN Reason: Nausea and Vomiting Pharmacy Consult (Consult Rx Vancomycin Dosing) 1 each MISCELLANE DAILY PRN PRN Reason: Consult order Sodium Chloride (0.9 % Sodium Chloride Flush 3 Ml Syringe) 3 ml IVFLUSH [facility] Last Admin: 04/27/24 21:36 Dose: 3 ml Home Medications ?Medication ?Instructions ?Recorded ?Confirmed ?Last Taken ?Type tamsulosin 0.4 mg capsule 0.4 mg PO BID 07/01/20 03/31/24 03/19/23 History aspirin 81 mg tablet,delayed 81 mg PO DAILY 08/03/20 03/31/24 03/11/23 History release budesonide 160 mcg-glycopyr 9 2 inh inhalation BID 03/23/22 03/31/24 03/19/23 History mcg-formot 4.8 mcg/actuation HFA inhaler (Breztri Aerosphere) albuterol sulfate 90 mcg/actuation 180 mcg inhalation Q4H PRN Wheezing 09/06/22 03/31/2403/19/23 History aerosol inhaler finasteride 5 mg tablet 5 mg PO DAILY 02/04/24 03/31/24 Unknown History Physical Exam 2 Vital Signs and Narrative: General: AOx3, no acute distress Resp: CTA bilaterally CVS: S1, S2, RRR GI: +BS, NT, no distention Skin: Warm, dry Neuro: Cranial nerves II-XII grossly intact bilaterally. Motor grossly intact bilaterally Extremities: No edema. Left great toe with small cut on the lateral plantar aspect without obvious odor or purulent discharge. Mild surrounding erythema, swelling,. As pictured below Psych: Appropriate affect Results Labs 04/27/24 21:41 04/27/24 21:41 Assessment and Plan (1) Osteomyelitis of great toe of left foot: Status: Acute Plan Pt is a 78-year-old male with a PMH significant for?HTN, CAD, COPD, peripheral vascular disease, left carotid endarterectomy, xvj-bcqawhb-vtgjpwsmk type 2 diabetes, BPH s/p TURP, and MISTY on CPAP who originally presented to [facility] in [place] 3 days prior for evaluation of left toe swelling, pain, and redness. Patient is being admitted to the hospital for treatment and further evaluation of left great toe osteomyelitis with abscess and septic arthritis. Left great toe osteomyelitis with abscess and septic arthritis Original injury 3 weeks ago, worsening swelling kind of pain, erythema despite p.o. doxy Originally presented to [facility] and [place] MRI at [place] showed abscess, septic arthritis, and mild acute osteomyelitis Patient being treated with vanc and Zosyn, started 04/25/2024 Labs from note reviewed and grossly unremarkable: lactic on 04/25 WNL, no leukocytosis Will check CBC, BNP, lactic acid; Vitals here without tachycardia, tachypnea, or fever: No sepsis Vascular surgery consult ID consult NPO after midnight for surgical intervention tomorrow HTN continue amlodipine, chlorthalidone, hydralazine CAD/PVD Continue statin Hold aspirin due to surgical intervention tomorrow morning Sxs-sipwtwx-addjagyjo type 2 diabetes Hold metformin Sliding-scale insulin Diabetic diet once no longer NPO BPH Continue tamsulosin COPD not in acute exacerbation Continue home inhalers MISTY CPAP at night Full Code Attending:?Dr. Madden DVT Prophylaxis: Pneumatic compression due to surgical intervention tomorrow morning Pt will require a hospitalization of at least two nights for treatment of?left great toe acute osteomyelitis with abscess and septic arthritis that will require IV antibiotics and surgical intervention. Quality Stroke Does the patient have a stroke diagnosis?: No VTE Prior VTE?: No VTE Risk Level:: Medical - moderate - high VTE Device Contraindication: N/A - Device Ordered VTE Drug Contraindication: Treatment Not Indicated
[2024-04-27 21:45] VITALS: BMI 31.5
[2024-04-27 21:45] LABS: Glucose, Whole Blood 123 mg/dL (60-115)
[2024-04-27 21:49] LABS: MANUAL DIFF FLAG NO
[2024-04-27 21:50] LABS: Basophils Absolute Auto 0.1 X10*3/uL (0.0-0.2); Basophils Percent Auto 0.8 % (0-2); Eosinophils Absolute Auto 0.6 X10*3/uL (0.0-0.4); Eosinophils Percent Auto 5.1 % (0-4); Hematocrit 41.2 % (42.0-52.0); Hemoglobin 14.4 g/dl (14.0-18.0); Imm Gran Abs Auto 0.09 X10*3/uL (0.00-0.03); Imm Gran Pct Auto 0.8 % (0.0-0.4); Lymphocytes Percent Auto 17.5 % (20-40); Mean Corpuscular Hemoglobin 31.2 pg (27.0-33.0); Mean Corpuscular Volume 89.2 fL (80.0-98.0); Mean Platelet Volume 8.6 fL (9.4-12.4); Monocytes Absolute Auto 1.2 X10*3/uL (0.1-1.2); Monocytes Percent Auto 10.6 % (2-11); Neutrophils Absolute Auto 7.4 x10*3/uL (2.0-8.3); Neutrophils Percent Auto 65.2 % (45-73); Platelet Count 312 X10*3/uL (160-400); Red Blood Count 4.62 X10*6/uL (4.60-5.80); Red Cell Distribution Width 13.4 % (11.0-16.0); White Blood Count 11.4 X10*3/uL (4.8-10.8)
[2024-04-27 22:03] LABS: Lactic Acid 0.8 mmol/L (0.5-2.0)
[2024-04-27 22:07] VITALS: BP 169/79; PULSE 86; RESP 18; TEMP 36.2; O2SAT 93
[2024-04-27 22:07] LABS: Alanine Aminotransferase 18 U/L (0-40); Alkaline Phosphatase 43 U/L (39-117); Anion Gap 15 (12-20); Aspartate Amino Transferase 16 U/L (5-37); Bilirubin Total 0.2 mg/dL (0.0-1.0); Blood Urea Nitrogen 18 mg/dL (9-16); Calcium 9.5 mg/dL (8.4-10.2); Carbon Dioxide 27 mmol/L (22-29); Chloride 100 mmol/L (96-108); Creatinine Clr Calc Pharmacy 56.3; Estimated Glomerular Filt Rate 58; Glucose Random 123 mg/dL (60-115); Potassium 3.7 mmol/L (3.3-5.1); Sodium 138 mmol/L (135-145); Total Protein 6.9 g/dL (6.5-8.0)
[2024-04-27 22:47] VITALS: PULSE 82; RESP 20; O2SAT 98
[2024-04-27] MEDS: Piperacillin Sodium/Tazobactam 3.375 GM in 0.9 % Sodium Chloride 50 ML IV (23:54)
[2024-04-28 03:03] VITALS: BP 139/66; PULSE 65; RESP 16; TEMP 36; O2SAT 94
[2024-04-28] MEDS: Piperacillin Sodium/Tazobactam 3.375 GM in 0.9 % Sodium Chloride 50 ML IV ×2 (05:45→12:03)
[2024-04-28 05:55] LABS: MANUAL DIFF FLAG NO
[2024-04-28 06:10] LABS: Basophils Absolute Auto 0.1 X10*3/uL (0.0-0.2); Eosinophils Absolute Auto 0.6 X10*3/uL (0.0-0.4); Eosinophils Percent Auto 5.5 % (0-4); Hematocrit 43.7 % (42.0-52.0); Hemoglobin 14.8 g/dl (14.0-18.0); Imm Gran Abs Auto 0.07 X10*3/uL (0.00-0.03); Imm Gran Pct Auto 0.7 % (0.0-0.4); Lymphocytes Absolute Auto 1.9 X10*3/uL (1.2-4.9); Lymphocytes Percent Auto 18.4 % (20-40); Mean Corpuscular HGB Conc 33.9 g/dl (31.0-36.0); Mean Corpuscular Hemoglobin 30.1 pg (27.0-33.0); Mean Corpuscular Volume 88.8 fL (80.0-98.0); Mean Platelet Volume 8.5 fL (9.4-12.4); Monocytes Absolute Auto 0.8 X10*3/uL (0.1-1.2); Monocytes Percent Auto 8.2 % (2-11); Neutrophils Absolute Auto 6.8 x10*3/uL (2.0-8.3); Neutrophils Percent Auto 66.2 % (45-73); Platelet Count 335 X10*3/uL (160-400); Red Blood Count 4.92 X10*6/uL (4.60-5.80); Red Cell Distribution Width 13.4 % (11.0-16.0); White Blood Count 10.3 X10*3/uL (4.8-10.8)
[2024-04-28 06:23] LABS: Anion Gap 16 (12-20); Blood Urea Nitrogen 15 mg/dL (9-16); Calcium 9.7 mg/dL (8.4-10.2); Carbon Dioxide 25 mmol/L (22-29); Chloride 102 mmol/L (96-108); Creatinine Clr Calc Pharmacy 70.1; Estimated Glomerular Filt Rate > 60; Glucose Random 147 mg/dL (60-115); Potassium 3.7 mmol/L (3.3-5.1); Sodium 139 mmol/L (135-145)
[2024-04-28 07:21] VITALS: BP 162/79; PULSE 82; RESP 18; TEMP 36.5; O2SAT 95
[2024-04-28 07:26] LABS: Glucose, Whole Blood 153 mg/dL (60-115)
--- NOTE | 2024-04-28 08:36 | PHA.PROG ---
Admission Date/Time: April 27, 2024 20:58 Indication: skin Weight in k.9 kg Adjusted body weight in Kg: [place] body weight in Kg: Obesity Dosing Indication % IBW: Serum Creatinine - Last 168 Hours 04/27/24 04/28/24 21:41 05:26 Creatinine 1.22 0.98 Estimated CrCl and GFR - Last 168 Hours 04/27/24 04/28/24 21:41 05:26 Estim Creat Clear Calc 56.3 70.1 Estimated GFR 58 > 60 Vancomycin Loading Dose: 2000 mg Current Vancomycin Dosing Regimen: 1000 mg Q12h Vancomycin Monitoring using AUC goal of 400 - 600 range with trough as surrogate marker: 579 Date and Time for next Vancomycin Level to be drawn: 04/29 @0700 Pharmacist Comments on Vancomycin Plan: Vancomycin dosing will take advantage of [employer] as a clinical decision support tool that uses Bayesian modeling to calculate individual patient's pharmacokinetic parameters and forecast the patient's drug concentration time course with the target goal AUC 24 range of 400 - 600 mg/L/hr.
--- NOTE | 2024-04-28 08:44 | PHA.MEDREC ---
Addendum entered by Aminah Galvan, [facility] 04/28/24 08:49: pt also stated that at [facility] they tried to give him spiriva but he can't use that. Addendum entered by Aminah Galvan, [facility] 04/28/24 08:48: pt also stated he had 2 days left of doxycycline but doesn't know if providers here will want him to complete his course since he is here. Original Note: Pharmacy Consult ? Medication Reconciliation Pharmacy has completed the medication reconciliation, spoke to patient at bedside. Pt was excellent historian, knew all med doses and frequencies with gentle reminders of names. Stated that he has not had his simbrinza eye drops and breztri inhaler since the other hospital didn't have them, pt was previously at [facility]. When asked about OTC medications, he said he takes potassium but doesn't recall dosing but stated he takes it once a day.
[2024-04-28] MEDS: Insulin Lispro 100 UNIT/ML 3 ML VIAL SUBCUT ×2 (09:16→12:01)
[2024-04-28] MEDS: Heparin Sodium,Porcine 5,000 UNIT/ML VIAL 5000 UNIT SUBCUT ×3 (09:17→23:48)
[2024-04-28] MEDS: 0.9 % Sodium Chloride Flush 3 ML SYRINGE IVFLUSH ×3 (09:19→20:20)
[2024-04-28] MEDS: vancomycin HCL 1,000 MG in 0.9 % Sodium Chloride 250 ML 270 MG IV (09:29)
[2024-04-28 09:53] LABS: Creatinine Clr Calc Pharmacy 73.9; Estimated Glomerular Filt Rate > 60
[2024-04-28 11:03] LABS: Glucose, Whole Blood 164 mg/dL (60-115)
--- NOTE | 2024-04-28 11:34 | MHC.CM.PN ---
Addendum entered by Sara Walker RN 04/28/24 15:25: [facility] UNABLE TO OFFER VNA SERVICES PT IS NOT HOMEBOUND, [facility] TO PROVIDE NSG, CM DID REACH OUT TO VERO AT [facility] TO VERIFY IF THEY COULD PROVIDE A NURSE AND VERO REPORTED PT MAY HAVE A SUBSTANTIAL COST FOR THE MEDICATION AND WILL FOLLOW UP W/CM SHORTLY W/TOTAL COST. Addendum entered by Sara Walker RN 04/28/24 14:20: CM MET W/PT TO DISCUSS DISPO AND EXPLAINED THAT THE IV ABX AT HOME ARE A MUCH SIMPLER SYSTEM THAN POLE/BAGS THAT HE HAS GOING NOW IN THE HOSPITAL, PT AGREEABLE TO TRY AND THINKS HE WILL BE ABLE TO LEARN. PT DOES THINK COMING IN TO [facility] DAILY IS FEASIBLE W/HIS SCHEDULE. [facility] FOR TEACH TODAY AT APPROX 3-3:30PM Original Note: EMR REVIEWED, PT W/POSSIBLE TOE SEPTIC ARTHRITIS AND POSSIBLE AMP HOWEVER PER VASCULAR I&D WILL BE DONE AT BEDSIDE TODAY, PT MAY ALSO NEED 6WKS IV ABX AT HOME. PT LIVES ALONE, IS INDEP W/ALL CARE, WORKS/DRIVES, DENIES DME/SERVICES, PT WOULD LIKE DAILY NURSING IF NEEDING IV ABX AT HOME HOWEVER CM EXPLAINED THAT PT WOULD NEED TO LEARN HOW TO SELF ADMINISTER VNA'S DONT DO [facility] DAILY VISITS AND AN INFUSION COMPANY WOULD COME TO BEDSIDE FOR TEACHING. PCP VERIFIED AND HCP ON FILE AT [facility], PT GIVES CM VERBAL CONSENT TO REQUEST FROM [facility] MEDICAL RECORDS, [facility] TO FAX COPY TO CM OFFICE.
[2024-04-28] MEDS: hydrALAZINE HCl 50 MG TABLET PO (12:02)
[2024-04-28] MEDS: amLODIPine Besylate 10 MG TABLET PO (12:02)
[2024-04-28 12:28] LABS: Erythrocyte Sedimentation Rate 26 MM/HR (0-15)
--- NOTE | 2024-04-28 12:52 | PM.CNGS ---
History of Present Illness Consult details Consult date: 04/28/24 Reason for consult: wound care Narrative: Very pleasant 78-year-old gentleman well known to me for prior history of carotid disease presented to an outside institution with left great toe diabetic foot ulcer. He was seen and worked up there and due to his prior history and lack of vascular care there he was subsequently transferred to our institution. Reports this began several days prior when he went to trim his toenails and remove skin. He had seen a human resource advisor that started him on doxycycline. He was subsequently admitted to [facility] and was started on vanco and Zosyn. He has had question of septic arthritis with mild acute osteomyelitis at that time. In due to his vascular history he was subsequently transferred to us for further evaluation. Review of Systems Review of Systems: Yes all other systems are reviewed and are negative Constitutional: Constitutional: Reports no additional constitutional complaints ENT: Reports Normal hearing present Cardiovascular: Cardiovascular: Denies chest pain, Denies chest pain at rest, Denies chest pain with activity and Denies pedal edema Respiratory: Respiratory: Denies cough Gastrointestinal: Gastrointestinal: Denies abdominal pain Musculoskeletal: Musculoskeletal: Denies abnormal gait, Denies muscle cramps and Denies radiating pain into limb Integumentary/Breasts: Skin/Breast: Denies skin ulcer and Denies wounds Neurologic: Reports Normal hearing present and Denies abnormal gait Psychiatric: Psychiatric: Reports no additional psychiatric complaints [facility] Past Medical History Medical History COVID Benign prostatic hyperplasia with urinary obstruction MISTY on CPAP Bifascicular block Atherosclerotic cardiovascular disease COPD (chronic obstructive pulmonary disease) Carotid stenosis Hypertension Diabetes Hypercholesteremia Family History Family History Father CVD (cardiovascular disease) Mother No problems noted. Sister Cancer Sister Cancer Surgical History Surgical History H/O colonoscopy Hx of elbow surgery History of eyelid surgery S/P TURP (status post transurethral resection of prostate) (~2019) Status post carotid surgery Hx of cataract Social History Social History Household Members: None Housing: Apartment Do you presently have visiting nurse or other home services: No Alcohol intake: never Comment: pt. is ambulatory, steady on foot. Patient Tobacco Use Status: Former Tobacco user e-Cigarette/Vaping Use: Never Used Second Hand Smoke Exposure: No Use of substances other than those prescribed or required for medical reasons: No Currently Displaying Signs/Symptoms of Drug Intoxication Withdrawal: No Have you been hit, kicked, punched, or otherwise hurt by someone within the past year? If so, by whom?: No Do you feel safe in your current relationship?: Yes Is there a partner from a previous relationship who is making you feel unsafe now?: No Are you made to feel afraid or neglected: No Advance Directives: Yes Advance Directives Information Provided: No Advance Directives on File: No Advance Directives Date on File: 04/27/24 Do you have a plan to hurt others: No Plan Recently lost weight without trying: No Nutrition Risks: No Nutritional Risk service: No Current occupational status: retired Current occupational exposures/hazards: No Cognitive needs: No Hearing needs: No Vision needs: No Meds Allergies Allergy/AdvReac Type Severity Reaction Status Date / Time SADI Inhibitors Allergy Unknown FACIAL Verified 03/31/24 11:39 [SADI INHIBITORS] SWELLING lisinopril [LISINOPRIL] Allergy Unknown FACIAL Verified 03/31/24 11:39 SWELLING, hives, lip edema oxycodone [From PERCOCET] Allergy Unknown JOINT Verified 03/31/24 11:39 STIFFNESS peanut [PEANUTS] Allergy Unknown SWELLING,TH Verified 03/31/24 11:39 ROAT,HIVES Active Medications: Current Medications Acetaminophen (Acetaminophen 325 Mg Tablet) 650 mg PO Q6H PRN PRN Reason: Pain, Mild (Pain Scale 1-3), fever or headache Albuterol Sulfate (Albuterol Sulfate 90 Mcg 8 Gm Inhaler) 2 puff INHALE RQ4H PRN PRN Reason: wheezing Albuterol/Ipratropium (Albuterol/Iprat 2.5/0.5mg 3 Ml Ampul.Neb) 3 ml INHALE Q4H PRN PRN Reason: Wheezing Amlodipine Besylate (Amlodipine Besylate 10 Mg Tablet) 10 mg PO DAILY [facility]; Protocol Last Admin: 04/28/24 12:02 Dose: 10 mg Aspirin (Aspirin Enteric Coated 81 Mg Tablet.) 81 mg PO DAILY [facility] Calcium Carbonate (Calcium Carbonate 750 Mg Tab.Chew) 750 mg PO Q4H PRN PRN Reason: Heartburn Finasteride (Finasteride 5 Mg Tablet) 5 mg PO DAILY [facility] Glucose (Glucose Gel 15 Gm Gel..Gram.) 15 gm PO Q15M PRN; Protocol PRN Reason: per Hypoglycemia Standing Ord. Heparin Sodium (Porcine) (Heparin Sodium,Porcine 5,000 Unit/Ml Vial) 5,000 unit SUBCUT Q8H [facility] Last Admin: 04/28/24 09:17 Dose: 5,000 unit Hydralazine HCl (Hydralazine Hcl 50 Mg Tablet) 50 mg PO DAILY [facility]; Protocol Last Admin: 04/28/24 12:02 Dose: 50 mg Dextrose (D10) 250 mls @ 750 mls/hr IV Q15M PRN; Protocol PRN Reason: per Hypoglycemia Standing Ord. Piperacillin Sod/Tazobactam (Sod 3.375 gm/ Sodium Chloride) 50 mls @ 100 mls/hr IV Q6H [facility] Last Admin: 04/28/24 12:03 Dose: 100 mls/hr Vancomycin HCl 1,000 mg/ (Sodium Chloride) 270 mls @ 270 mls/hr IV Q12H [facility] Last Infusion: 04/28/24 11:20 Dose: Infused Insulin Human Lispro (Insulin Lispro 100 Unit/Ml 3 Ml Vial) 0 unit SUBCUT QIDACHS [facility]; Protocol Last Admin: 04/28/24 12:01 Dose: 2 unit Latanoprost (Latanoprost 0.005 % Ophth Rosa 2.5 Ml Drops) 1 drop EYE-BOTH BEDTIME [facility] Magnesium Hydroxide (Milk Of Magnesia 30 Ml Oral.Susp) 30 ml PO DAILY PRN PRN Reason: Constipation Melatonin (Melatonin 3 Mg Tablet) 6 mg PO BEDTIME PRN PRN Reason: Insomnia Non-Formulary Medication (Hmqoubgozp-Yagjvfka-Yamcjlwepr [Breztri Aerosphere]) 2 inhalation INHALE BID [facility] Non-Formulary Medication (Brinzolamide-Brimonidine [Simbrinza]) 1 drop EYE-BOTH BID [facility] Ondansetron HCl (Ondansetron Hcl 4 Mg/2 Ml Vial) 4 mg IVPUSH Q8H PRN PRN Reason: Nausea and Vomiting Pharmacy Consult (Consult Rx Vancomycin Dosing) 1 each MISCELLANE DAILY PRN PRN Reason: Consult order Sodium Chloride (0.9 % Sodium Chloride Flush 3 Ml Syringe) 3 ml IVFLUSH QSHIFT [facility] Last Admin: 04/28/24 09:19 Dose: 3 ml Home Medications ?Medication ?Instructions ?Recorded ?Confirmed ?Last Taken ?Type tamsulosin 0.4 mg capsule 0.4 mg PO BID 07/01/20 04/28/24 04/27/24 History aspirin 81 mg tablet,delayed 81 mg PO DAILY 08/03/20 04/28/24 04/27/24 History release finasteride 5 mg tablet 5 mg PO DAILY 02/04/24 04/28/24 04/27/24 History albuterol sulfate 90 mcg/actuation 2 puff inhalation Q4H PRN wheezing 04/28/24 04/28/24 Unknown History aerosol inhaler brinzolamide 1 %-brimonidine 0.2 % 1 drp ophthalmic (eye) BID 04/28/24 04/28/24 Unknown History eye drops,suspension (Simbrinza) budesonide 160 mcg-glycopyr 9 2 inh inhalation BID 04/28/24 04/28/24 Unknown History mcg-formot 4.8 mcg/actuation HFA inhaler (Breztri Aerosphere) chlorthalidone 50 mg tablet 50 mg PO DAILY 04/28/24 04/28/24 04/27/24 History doxycycline hyclate 100 mg capsule 100 mg PO BID 04/28/24 04/28/24 04/27/24 History hydralazine 50 mg tablet 50 mg PO DAILY 04/28/24 04/28/24 04/27/24 History latanoprost 0.005 % eye drops 1 drp ophthalmic (eye) BEDTIME 04/28/24 04/28/24 04/27/24 History Physical Exam Vital Signs: Vital Signs: Last Vital Signs Temp 97.7 F 04/28/24 07:21 Pulse 82 04/28/24 07:21 Resp 18 04/28/24 07:21 BP 162/79 H 04/28/24 07:21 Pulse Ox 95 04/28/24 07:21 O2 Del Method Room Air 04/28/24 07:21 BMI result Body Mass Index 31.5 Const: General: cooperative, healthy appearing and comfortable Orientation/consciousness: oriented to person, oriented to place and oriented to time HEENT: Head: Yes normal to inspection Neck: Neck: Yes normal visual inspection Carotids: no bruits Chest: Chest palpation & inspection: normal inspection of the chest Resp: Effort & Inspection: normal respiratory effort and able to speak in complete sentences Auscultation: clear to auscultation bilaterally, no crackles, no rales, no rhonchi and no wheezes Cardio: Other: Left leg palpable posterior tibial pulse Rate: regular rate Rhythm: regular rhythm Heart sounds: S1 normal heart sound present and S2 normal heart sound present Bruits: no carotid bruits Peripheral pulses: Peripheral pulses 2+ throughout GI: Inspection: Yes normal to inspection Skin: Other: Left great toe on the lateral aspect there was a dry eschar with a small opening. This was opened up add did not demonstrate any collection. No fluid was expressed from this area. Wounds: wounds noted Hair: normal Neuro: General: oriented to person, oriented to place and oriented to time Cranial nerves: Yes CN's II-XII intact bilaterally and Yes Normal hearing present Cognition (Neuro): normal cognition Motor exam (neuro): 5/5 motor strength present throughout Extrem: Other: venous exam: No significant superficial varicosities or spider telangiectasias, minimal edema General: No clubbing, No cyanosis and No edema Psych: Appearance: grossly normal Mental Status: mental status grossly normal Speech and movement: Normal speech and movement present Results Labs 04/28/24 05:26 04/28/24 09:07 Labs: Abnormal lab results 04/27/24 04/27/24 04/28/24 Range/Units 21:41 21:42 05:26 WBC 11.4 H (4.8-10.8) X10*3/uL Hct 41.2 L (42.0-52.0) % MPV 8.6 L 8.5 L (9.4-12.4) fL Immature Gran % (Auto) 0.8 H 0.7 H (0.0-0.4) % Lymph % (Auto) 17.5 L 18.4 L (20-40) % Eos % (Auto) 5.1 H 5.5 H (0-4) % Eos # (Auto) 0.6 H 0.6 H (0.0-0.4) X10*3/uL Abs Immat Gran (auto) 0.09 H 0.07 H (0.00-0.03) X10*3/uL ESR (0-15) MM/HR BUN 18 H (9-16) mg/dL POC Glucose 123 H (60-115) mg/dL Random Glucose 123 H 147 H (60-115) mg/dL 04/28/24 04/28/24 04/28/24 Range/Units 07:20 10:59 11:39 WBC (4.8-10.8) X10*3/uL Hct (42.0-52.0) % MPV (9.4-12.4) fL Immature Gran % (Auto) (0.0-0.4) % Lymph % (Auto) (20-40) % Eos % (Auto) (0-4) % Eos # (Auto) (0.0-0.4) X10*3/uL Abs Immat Gran (auto) (0.00-0.03) X10*3/uL ESR 26 H (0-15) MM/HR BUN (9-16) mg/dL POC Glucose 153 H 164 H (60-115) mg/dL Random Glucose (60-115) mg/dL Short CBC 04/27/24 04/28/24 Range/Units 21:41 05:26 WBC 11.4 H 10.3 (4.8-10.8) X10*3/uL Hgb 14.4 14.8 (14.0-18.0) g/dl Hct 41.2 L 43.7 (42.0-52.0) % Plt Count 312 335 (160-400) X10*3/uL BMP 04/27/24 04/28/24 04/28/24 21:41 05:26 09:07 Sodium 138 139 Potassium 3.7 3.7 Chloride 100 102 Carbon Dioxide 27 25 BUN 18 H 15 Creatinine 1.22 0.98 0.93 Calcium 9.5 9.7 Liver Function 04/27/24 Range/Units 21:41 Total Bilirubin 0.2 (0.0-1.0) mg/dL AST 16 (5-37) U/L ALT 18 (0-40) U/L Alkaline Phosphatase 43 (39-117) U/L Albumin 4.0 (3.5-5.0) g/dL All other labs normal. Assessment and Plan (1) Osteomyelitis of great toe of left foot: Status: Acute Plan In short nonhealing left great toe secondary to diabetes. Question is underlying osteomyelitis. I do believe this is more septic arthritis in appears to be more superficial. There is no collection that I can appreciate. At the current time would treat with antibiotics. Awaiting Infectious Disease input. From my perspective stable for discharge. He can follow up with me as an outpatient 2 weeks upon discharge. Thank you for allowing us to assist in his care. If there are any questions or concerns please do not hesitate to contact us. Procedures Date of Service Date of Service: 04/28/24
[2024-04-28 15:12] VITALS: BP 146/72; PULSE 83; RESP 18; TEMP 36.8; O2SAT 94
--- NOTE | 2024-04-28 15:45 | HO.PM.IMPN ---
Subjective Subjective Date of Service: 04/28/24 Interval History: Being followed for left big toe cellulitis/abscess. Patient transferred from [facility] was treated with IV vanco and Zosyn Dr. Del Castillo accepted the case for further treatment of septic arthritis with mild acute osteomyelitis with prior vascular history. Complaining of mild left big toe discomfort, denies fever, no chills, no nausea, no vomiting, no other acute events overnight. Review of Systems All other system reviewed and negative Physical Exam Vital Signs: Vital Signs: Last Vital Signs Temp 98.2 F 04/28/24 15:12 Pulse 83 04/28/24 15:12 Resp 18 04/28/24 15:12 BP 146/72 H 04/28/24 15:12 Pulse Ox 94 04/28/24 15:12 O2 Del Method Room Air 04/28/24 15:12 BMI result Body Mass Index 31.5 Const: Other: General awake alert x3, in no acute distress. Neckno JVD. CVS regular rate rhythm, Respiratory lungs clear to auscultation, no respiratory distress, no wheeze, no rhonchi. Gastrointestinal abdomen soft, non tender, obese, bowel sounds audible. Extremities no clubbing cyanosis or edema. Neuro non focal Skin no rash Left big toe dry eschar on lateral aspect, no drainage, mild swelling, no significant erythema or warmth no fluctuation, no induration. Appropriate affect Objective Data Active Medications Acetaminophen (Acetaminophen 325 Mg Tablet) 650 mg PO Q6H PRN PRN Reason: Pain, Mild (Pain Scale 1-3), fever or headache Albuterol Sulfate (Albuterol Sulfate 90 Mcg 8 Gm Inhaler) 2 puff INHALE RQ4H PRN PRN Reason: wheezing Albuterol/Ipratropium (Albuterol/Iprat 2.5/0.5mg 3 Ml Ampul.Neb) 3 ml INHALE Q4H PRN PRN Reason: Wheezing Amlodipine Besylate (Amlodipine Besylate 10 Mg Tablet) 10 mg PO DAILY [facility]; Protocol Last Admin: 04/28/24 12:02 Dose: 10 mg Documented By: BEN Aspirin (Aspirin Enteric Coated 81 Mg Tablet.) 81 mg PO DAILY [facility] Calcium Carbonate (Calcium Carbonate 750 Mg Tab.Chew) 750 mg PO Q4H PRN PRN Reason: Heartburn Finasteride (Finasteride 5 Mg Tablet) 5 mg PO DAILY [facility] Glucose (Glucose Gel 15 Gm Gel..Gram.) 15 gm PO Q15M PRN; Protocol PRN Reason: per Hypoglycemia Standing Ord. Heparin Sodium (Porcine) (Heparin Sodium,Porcine 5,000 Unit/Ml Vial) 5,000 unit SUBCUT Q8H [facility] Last Admin: 04/28/24 09:17 Dose: 5,000 unit Documented By: BEN Hydralazine HCl (Hydralazine Hcl 50 Mg Tablet) 50 mg PO DAILY [facility]; Protocol Last Admin: 04/28/24 12:02 Dose: 50 mg Documented By: BEN Dextrose (D10) 250 mls @ 750 mls/hr IV Q15M PRN; Protocol PRN Reason: per Hypoglycemia Standing Ord. Daptomycin 474 mg/ Sodium (Chloride) 59.48 mls @ 100 mls/hr IV Q24H [facility] Insulin Human Lispro (Insulin Lispro 100 Unit/Ml 3 Ml Vial) 0 unit SUBCUT QIDACHS [facility]; Protocol Last Admin: 04/28/24 12:01 Dose: 2 unit Documented By: BEN Latanoprost (Latanoprost 0.005 % Ophth Rosa 2.5 Ml Drops) 1 drop EYE-BOTH BEDTIME [facility] Magnesium Hydroxide (Milk Of Magnesia 30 Ml Oral.Susp) 30 ml PO DAILY PRN PRN Reason: Constipation Melatonin (Melatonin 3 Mg Tablet) 6 mg PO BEDTIME PRN PRN Reason: Insomnia Non-Formulary Medication (Fhvptgsvnv-Vzozdvkq-Lzsykntfhn [Breztri Aerosphere]) 2 inhalation INHALE BID [facility] Non-Formulary Medication (Brinzolamide-Brimonidine [Simbrinza]) 1 drop EYE-BOTH BID [facility] Ondansetron HCl (Ondansetron Hcl 4 Mg/2 Ml Vial) 4 mg IVPUSH Q8H PRN PRN Reason: Nausea and Vomiting Sodium Chloride (0.9 % Sodium Chloride Flush 3 Ml Syringe) 3 ml IVFLUSH QSHIFT [facility] Last Admin: 04/28/24 09:19 Dose: 3 ml Documented By: BEN Labs 04/28/24 05:26 04/28/24 09:07 Labs: Laboratory Results - last 24 hr 04/27/24 04/27/24 04/28/24 21:41 21:42 05:26 MCV 89.2 88.8 MCH 31.2 30.1 MCHC 35.0 33.9 RDW 13.4 13.4 Plt Count 312 335 MPV 8.6 L 8.5 L Immature Gran % (Auto) 0.8 H 0.7 H Neut % (Auto) 65.2 66.2 Lymph % (Auto) 17.5 L 18.4 L [place] % (Auto) 10.6 8.2 Eos % (Auto) 5.1 H 5.5 H Baso % (Auto) 0.8 1.0 Lymph # (Auto) 2.0 1.9 [place] # (Auto) 1.2 0.8 Eos # (Auto) 0.6 H 0.6 H Baso # (Auto) 0.1 0.1 Abs Immat Gran (auto) 0.09 H 0.07 H Absolute Neuts (auto) 7.4 6.8 Absolute Nucleated RBC 0.000 0.000 Nucleated RBC % (auto) 0.0 0.0 ESR Anion Gap 15 16 Estim Creat Clear Calc 56.3 70.1 Estimated GFR 58 > 60 POC Glucose 123 H Random Glucose 123 H 147 H Lactic Acid 0.8 Calcium 9.5 9.7 Total Bilirubin 0.2 AST 16 ALT 18 Alkaline Phosphatase 43 Total Protein 6.9 Albumin 4.0 04/28/24 04/28/24 04/28/24 07:20 09:07 10:59 MCV MCH MCHC RDW Plt Count MPV Immature Gran % (Auto) Neut % (Auto) Lymph % (Auto) [place] % (Auto) Eos % (Auto) Baso % (Auto) Lymph # (Auto) [place] # (Auto) Eos # (Auto) Baso # (Auto) Abs Immat Gran (auto) Absolute Neuts (auto) Absolute Nucleated RBC Nucleated RBC % (auto) ESR Anion Gap Estim Creat Clear Calc 73.9 Estimated GFR > 60 POC Glucose 153 H 164 H Random Glucose Lactic Acid Calcium Total Bilirubin AST ALT Alkaline Phosphatase Total Protein Albumin 04/28/24 11:39 MCV MCH MCHC RDW Plt Count MPV Immature Gran % (Auto) Neut % (Auto) Lymph % (Auto) [place] % (Auto) Eos % (Auto) Baso % (Auto) Lymph # (Auto) [place] # (Auto) Eos # (Auto) Baso # (Auto) Abs Immat Gran (auto) Absolute Neuts (auto) Absolute Nucleated RBC Nucleated RBC % (auto) ESR 26 H Anion Gap Estim Creat Clear Calc Estimated GFR POC Glucose Random Glucose Lactic Acid Calcium Total Bilirubin AST ALT Alkaline Phosphatase Total Protein Albumin Assessment and Plan (1) Osteomyelitis of great toe of left foot: Status: Acute Plan 78-year-old male with a PMH significant for?HTN, CAD, COPD, peripheral vascular disease, left carotid endarterectomy, hrl-dwcnsbs-laezkmwda type 2 diabetes, BPH s/p TURP, and MISTY on CPAP who originally presented to [facility] in [place] 3 days prior for evaluation of left toe swelling, pain, and redness. Patient is being admitted to the hospital for treatment and further evaluation of left great toe osteomyelitis with abscess and septic arthritis. Left great toe osteomyelitis with abscess and septic arthritis Original injury 3 weeks ago MRI at [facility] showed abscess, septic arthritis, and mild acute osteomyelitis Normal WBC and lactic acid, will DC IV vancomycin and IV Zosyn and placed on IV daptomycin starting dose 04/[address] Del Castillo he attempted I and D no drainage was noted Case discussed with ID she recommend 6 weeks of IV daptomycin end date June 09 PICC line ordered harbor department manager arranged for [facility] they will provide and nurse, paperwork signed, will monitor CPK and BMP Q weekly HTN continue amlodipine, chlorthalidone, hydralazine CAD/PVD Continue statin and aspirin Mgt-vtnedpw-okockilao type 2 diabetes Stable blood sugar continue diabetic diet, Hold metformin Sliding-scale insulin BPH Continue tamsulosin COPD not in acute exacerbation Continue home inhalers MISTY CPAP at night Full Code DVT Prophylaxis: Pneumatic compression boots Pt will require continued inpatient hospitalization for PICC line placement and arrangement for outpatient 6 weeks IV antibiotics for treatment of?left great toe acute osteomyelitis with abscess and septic arthritis Quality Stroke Does the patient have a stroke diagnosis?: No VTE Prior VTE?: No VTE Risk Level:: Medical - moderate - high VTE Device Contraindication: N/A - Device Ordered VTE Drug Contraindication: Treatment Not Indicated
[2024-04-28 16:16] LABS: Glucose, Whole Blood 104 mg/dL (60-115)
[2024-04-28 18:55] VITALS: BP 170/78; PULSE 93; RESP 20; TEMP 36.2; O2SAT 93
[2024-04-28 20:05] LABS: Glucose, Whole Blood 140 mg/dL (60-115)
[2024-04-28] MEDS: Latanoprost 0.005 % Ophth Sol 2.5 ML DROPS 1 DROP EYE-BOTH (20:19)
[2024-04-28 22:40] VITALS: PULSE 80; RESP 20; O2SAT 97
[2024-04-29 03:17] VITALS: BP 158/78; PULSE 84; RESP 18; TEMP 36.2; O2SAT 94
[2024-04-29 06:44] LABS: CRP High Sensitivity 8.3 mg/L
[2024-04-29] MEDS: 0.9 % Sodium Chloride Flush 3 ML SYRINGE IVFLUSH (07:29)
[2024-04-29 07:35] VITALS: BP 154/74; PULSE 81; RESP 18; TEMP 36.6; O2SAT 93
[2024-04-29 07:48] LABS: Glucose, Whole Blood 148 mg/dL (60-115)
[2024-04-29] MEDS: Finasteride 5 MG TABLET PO (08:20)
[2024-04-29] MEDS: Heparin Sodium,Porcine 5,000 UNIT/ML VIAL 5000 UNIT SUBCUT (08:20)
[2024-04-29] MEDS: amLODIPine Besylate 10 MG TABLET PO (08:21)
[2024-04-29] MEDS: hydrALAZINE HCl 50 MG TABLET PO (08:21)
[2024-04-29] MEDS: Aspirin Enteric Coated 81 MG TABLET.DR PO (08:22)
--- NOTE | 2024-04-29 13:01 | HO.PICC ---
PICC Line Insertion NPICC INSERTION Diagnosis: OSTEOMYELITIS OF GREAT TOE OF LEFT FOOT Indication: SENIOR LIVING ANTIBX Pertinent Labs: REVIEWED Technique: Following informed consent including risks, benefits and alternatives and using sterile technique including cap and mask, sterile gown, glove and drape, the LEFT arm was prepped and draped in the usual sterile fashion of full barrier technique with CHG. Following completion of [place] Protocol the skin and soft tissues were anesthetized with 1% Lidocaine plain. Using ultrasound guidance, LEFT BRACHIAL vein access was obtained. Over an 0.018 wire through peel-away sheath, a 4FR SINGLE LUMEN PASV POWERPICC line was positioned. Catheter length is 44CM internal length, 0CM external length, for a total trimmed length of 44CM. The procedure was performed in RM 272. Tip verification was performed by Marcial Berkowitz with Sherlock 3CG. Tip located in SVC. Ultrasound was used to document vein patency and for needle entry. A formal ultrasound picture and cardiac rhythm strip was recorded. Vascular Exploration Engineer has released the line for use and it is currently dressed with a StatLock, Tegaderm, and CHG disc. Verification has been performed for blood return and line patency. Arm Circumference: 32.5CM Equipment: BARD POWERPICC SOLO CATHETER WITH SHERLOCK 3CG Catheter Type: 4FR SINGLE LUMEN PASV PICC Lot #: [id number]
--- NOTE | 2024-04-29 13:18 | W.MHC.F2F ---
Service Date Service Date: 04/29/24 Encounter Date of encounter: 04/29/24 Reasons for Services Signs and symptoms assessed: IV ABX for osteomyelitis Reason for detention: administration of IV, SQ, or IM injection and central line care MD Overseeing Care: Denis Diehl Homebound: Leaving the home is medically contraindicated at this time without the asist of a device and/or another person due th the listed conditions above and below. Reason homebound: immunosuppression / infection risk Certification: Based on the above findings, I certify that this patient is confined to the home and needs intermittent detention care, physical therapy and/or speech therapy, or continues to need occupational therapy. The patient is under my care, and I have initiated the establishment of the plan of care. The patient will be followed by a physician who will periodically review the plan of care. Time Spent With Patient Time: Total time managing care of this patient today ____ minutes.
--- NOTE | 2024-04-29 13:24 | P.DS_ITS ---
DS: Providers Provider Date of Service: 04/29/24 Date of admission: 04/27/24 20:58 Date of discharge: 04/29/24 Primary care physician: Denis Diehl MD Consults: 04/27/24 21:14 Consult to Vascular Surgery Routine Consulting Provider: [facility] Vascular Services Reason for consultation: diabetic foot infection 04/27/24 23:05 Consult to Infectious Diseases Routine Consulting Provider: [facility] Infectious Disease Center Reason for consultation: Left great toe osteomyelitis and septic arthritis 04/28/24 14:26 Consult to Infectious Diseases Routine Consulting Provider: HENNA EASTON Reason for consultation: osteo DS: Diagnosis Discharge Diagnosis (1) Osteomyelitis of great toe of left foot: Status: Acute DS: Summary Hospital Course Hospital Course: From the history and physical by the admitting hospitalist, MARKELL Florian, 04/27/24: Pt is a 78-year-old male with a PMH significant for?HTN, CAD, COPD, peripheral vascular disease, left carotid endarterectomy, oho-yeendom-dibtlkeuy type 2 diabetes, BPH s/p TURP, and MISTY on CPAP who originally presented to [facility] in [place] 3 days prior for evaluation of left toe swelling, pain, and redness. Patient states he was using scissors to trim skin on his left foot when he cut his toe and it started to bleed. A few days later toe began to swell, turn red, and was painful. Eventual redness and swelling began to go up patient's left leg and he went to see a pizza hut assistant who prescribed him doxycycline. Patient was on antibiotics for 5-7 days with worsening symptoms so patient decided to go to [facility] for further evaluation. Was started on vanc and Zosyn for 3 days. Received an MRI that showed peripherally enhancing abscess collection within the soft tissues along the medial aspect of great toe interphalangeal joint with enhancing IP joint effusion suggestive of septic arthritis, and likely mild acute osteomyelitis. According to patient, [facility] could not get a surgeon until later in the week, so they reached out Dr. Del Castillo in vascular surgery here at [facility] since he had performed patient's left endarterectomy. Dr. Del Castillo was able to bring patient to the OR tomorrow and so patient's transfer was arranged. Currently patient states his left great toe feels much better with improvement to swelling, redness, and pain since being on IV antibiotics. Reports he feels ?great? otherwise without any acute medical complaints. Denies fever or chills. No knee or calf pain. Denies nausea, vomiting, abdominal pain. No chest pain/pressure, palpitations. Denies shortness of breath or difficulty breathing. Patient is being admitted to the hospital for treatment and further evaluation of left great toe osteomyelitis with abscess and septic arthritis. He was admitted to the medical-surgical unit. MRI at [facility] had shown abscess, septic arthritis, and acute osteomyelitis. WBC count was normal, as was lactic acid. He was initially treated with IV vancomycin and piperacillin- tazobactam, than transitioned to IV daptomycin on 04/28/24. Dr Easton, the infectious disease contract consultant, recommended 6 wk of IV daptomycin. He was seen by Dr Del Castillo, who attempted an incision and drainage; however, no drainage was noted. Presentation was more consistent with septic arthritis and acute osteomyelitis; no abscess identified. Blood cultures negative. PICC line placed on 04/29/24 and home infusion services arranged. He should follow up with Primary Care in 1 week, Infectious Disease in 1 week, and Vascular Surgery in 2 weeks. Weekly labs while on daptomycin: CPK, CBCd, BMP. Hold rosuvastatin while on daptomycin. Time Attestation Discharge Coordination Time (in mins): 45 Quality: Safe Use of Opioids Does Pt have an Active Cancer Diagnosis on the Problem List?: No Quality: Stroke Does the patient have a stroke diagnosis?: No Physical Exam Vital Signs: Vital Signs: Last Vital Signs Temp 97.8 F 04/29/24 07:35 Pulse 81 04/29/24 07:35 Resp 18 04/29/24 07:35 BP 154/74 H 04/29/24 07:35 Pulse Ox 93 04/29/24 07:35 O2 Del Method Room Air 04/29/24 07:35 BMI result Body Mass Index 31.5 Gen: in no acute distress HEENT: sclera anicteric, moist mucus membranes Neck: supple Lungs: clear to auscultation bilaterally Heart: regular rate and rhythm, no murmurs Abd: soft, non-tender, non-distended Ext: no edema Skin: warm/well-perfused, L great toe with lateral dry eschar, mild swelling without any purulence or fluctuance, no erythema Neuro: alert and oriented x3, no focal findings Psych: appropriate affect DS: Data Data Completed and Pending Completed studies during hospitalization [Text1]: Laboratory Results WBC 10.3 X10*3/uL (4.8-10.8) 04/28/24 05:26 RBC 4.92 X10*6/uL (4.60-5.80) 04/28/24 05:26 Hgb 14.8 g/dl (14.0-18.0) 04/28/24 05:26 Hct 43.7 % (42.0-52.0) 04/28/24 05:26 MCV 88.8 fL (80.0-98.0) 04/28/24 05:26 MCH 30.1 pg (27.0-33.0) 04/28/24 05:26 MCHC 33.9 g/dl (31.0-36.0) 04/28/24 05:26 RDW 13.4 % (11.0-16.0) 04/28/24 05:26 Plt Count 335 X10*3/uL (160-400) 04/28/24 05:26 MPV 8.5 fL (9.4-12.4) L 04/28/24 05:26 Immature Gran % (Auto) 0.7 % (0.0-0.4) H 04/28/24 05:26 Neut % (Auto) 66.2 % (45-73) 04/28/24 05:26 Lymph % (Auto) 18.4 % (20-40) L 04/28/24 05:26 [place] % (Auto) 8.2 % (2-11) 04/28/24 05:26 Eos % (Auto) 5.5 % (0-4) H 04/28/24 05:26 Baso % (Auto) 1.0 % (0-2) 04/28/24 05:26 Lymph # (Auto) 1.9 X10*3/uL (1.2-4.9) 04/28/24 05:26 [place] # (Auto) 0.8 X10*3/uL (0.1-1.2) 04/28/24 05:26 Eos # (Auto) 0.6 X10*3/uL (0.0-0.4) H 04/28/24 05:26 Baso # (Auto) 0.1 X10*3/uL (0.0-0.2) 04/28/24 05:26 Abs Immat Gran (auto) 0.07 X10*3/uL (0.00-0.03) H 04/28/24 05:26 Absolute Neuts (auto) 6.8 x10*3/uL (2.0-8.3) 04/28/24 05:26 Absolute Nucleated RBC 0.000 X10*3/uL (0.0-0.012) 04/28/24 05:26 Nucleated RBC % (auto) 0.0 /100WBC (0.0-0.2) 04/28/24 05:26 ESR 26 MM/HR (0-15) H 04/28/24 11:39 Sodium 139 mmol/L (135-145) 04/28/24 05:26 Potassium 3.7 mmol/L (3.3-5.1) 04/28/24 05:26 Chloride 102 mmol/L (96-108) 04/28/24 05:26 Carbon Dioxide 25 mmol/L (22-29) 04/28/24 05:26 Anion Gap 16 (12-20) 04/28/24 05:26 BUN 15 mg/dL (9-16) 04/28/24 05:26 Creatinine 0.93 mg/dL (0.5-1.4) 04/28/24 09:07 Estim Creat Clear Calc 73.9 04/28/24 09:07 Estimated GFR > 60 04/28/24 09:07 POC Glucose 148 mg/dL (60-115) H 04/29/24 07:34 Random Glucose 147 mg/dL (60-115) H 04/28/24 05:26 Lactic Acid 0.8 mmol/L (0.5-2.0) 04/27/24 21:41 Calcium 9.7 mg/dL (8.4-10.2) 04/28/24 05:26 Total Bilirubin 0.2 mg/dL (0.0-1.0) 04/27/24 21:41 AST 16 U/L (5-37) 04/27/24 21:41 ALT 18 U/L (0-40) 04/27/24 21:41 Alkaline Phosphatase 43 U/L (39-117) 04/27/24 21:41 C-React Prot High Sens 8.3 mg/L H 04/28/24 11:39 Total Protein 6.9 g/dL (6.5-8.0) 04/27/24 21:41 Albumin 4.0 g/dL (3.5-5.0) 04/27/24 21:41 Discharge Plan Discharge Anticipated Discharge Date/Time: 04/29/24 13:19 Patient Disposition: Home Health Service Discharge Diagnosis: left 1st toe osteomyelitis Referrals: [facility] [Other] - 1 Week ([facility] WILL DELIVER YOUR IV ABX AND SUPPLIES, THEY ALSO HAVE NURSING CREATIVE GURU IF YOU NEED EXTRA PHONE/VIDEO SUPPORT IF NEEDED. CALL [phone] AND FOLLOW PROMPTS) Denis Diehl MD [Primary Care Provider] - 1 Week Henna Easton MD [Physician] - 1 Week Discharge Medications: New daptomycin 350 mg Recon Soln 474 mg IV Q24H Qty: 42 0RF sodium chloride 0.9 % (flush) [Normal Saline Flush] Syringe 5 ml IVFLUSH TID Qty: 300 0RF Continued (DME) blood sugar diagnostic Strip See Rx Instructions .ROUTE .MEDSUPPLY Qty: 50 2RF Rx Instructions: USE DIRECTED DAILY amlodipine 10 mg tablet 10 mg PO DAILY Qty: 30 6RF metformin 1,000 mg tablet 1,000 mg PO BID 90 Days Qty: 180 3RF latanoprost 0.005 % drops 1 drp ophthalmic (eye) BEDTIME albuterol sulfate 90 mcg/actuation HFA aerosol inhaler 2 puff inhalation Q4H PRN (Reason: wheezing) Simbrinza 1-0.2 % drops,suspension 1 drp ophthalmic (eye) BID Breztri Aerosphere 160-9-4.8 mcg/actuation HFA aerosol inhaler 2 inh INHALATION BID chlorthalidone 50 mg tablet 50 mg PO DAILY hydralazine 50 mg tablet 50 mg PO DAILY naproxen 500 mg tablet 500 mg PO BID PRN (Reason: pain) 30 Days Qty: 60 2RF tamsulosin 0.4 mg capsule 0.4 mg PO BID aspirin 81 mg tablet,delayed release (DR/EC) 81 mg PO DAILY finasteride 5 mg tablet 5 mg PO DAILY Held rosuvastatin 10 mg tablet 10 mg PO BEDTIME 90 Days Qty: 90 3RF Hold Instructions: Resume on 06/10/24. Discontinued doxycycline hyclate 100 mg capsule 100 mg PO BID Rx Instructions: END DATE: 04/29 @2100. Discharge Orders: Discharge Order (Routine); Ordered 04/29/24 Ordered By: Laure Bose Diet: Diabetic diet Activity on Discharge: As tolerated Stand Alone Forms: Patient Portal Discharge page Print Language: Ugandan Care Plan Goals: cure of infection Health Concerns: left 1st toe osteomyelitis Plan of Treatment: Hold rosuvastatin while on daptomycin; resume after completed daptomycin Take daptomycin 500 mg IV daily, end date 06/09/24. Weekly laboratory studies while on daptomycin: CBCd, BMP, CPK Follow up with [facility] Infectious Disease [Dr Alyssa Easton] in 1 week Follow up with [facility] Vascular Surgery [Dr Darian Del Castillo] in 2 weeks Please follow up with your primary care doctor within 1 week. Return to the hospital if you experience recurrent or worsening symptoms. Assessment: See Discharge Summary.
--- NOTE | 2024-04-29 13:29 | MHC.CM.PN ---
DP: PT HAS BEEN MEDICALLY CLEARED FOR DC HOME WITH [facility] FOR HOME INFUSION/PICC DRESSING CHANGES/SUPPLIES/MEDICATION. PT IS NOT ELIGIBLE FOR [facility] HE IS NOT HOMEBOUND. PT HAS HAD [facility] TEACHING AND IS COMFORTABLE WITH SELF ADMINISTRATION. RN AWARE.PT HAS OWN RIDE HOME.
[2024-04-29 13:34] LABS: Glucose, Whole Blood 113 mg/dL (60-115)
[2024-04-29] MEDS: 0.9 % Sodium Chloride Flush 10 ML SYRINGE 5 ML IVFLUSH (14:28)
--- NOTE | 2024-05-01 21:14 | P.CNID_ITS ---
History of Present Illness Data of Consult Service Date: 04/28/24 Requesting physician: Pascale Landin Primary Care Provider: Denis Diehl MD HPI Reason for consult: left great toe OM He presents originally to [facility]. He has left great toe small area erythema,opening. He was transferred to [facility] for eval by Dr Del Castillo. Review of Systems 2 Review of Systems: Yes all other systems are reviewed and are negative [facility] Past Medical History Medical History COVID Benign prostatic hyperplasia with urinary obstruction MISTY on CPAP Bifascicular block Atherosclerotic cardiovascular disease COPD (chronic obstructive pulmonary disease) Carotid stenosis Hypertension Diabetes Hypercholesteremia Family History Family History Father CVD (cardiovascular disease) Mother No problems noted. Sister Cancer Sister Cancer Family history: reviewed and not pertinent Surgical History Surgical History H/O colonoscopy Hx of elbow surgery History of eyelid surgery S/P TURP (status post transurethral resection of prostate) (~2019) Status post carotid surgery Hx of cataract Social History Social History Household Members: None Housing: Apartment Do you presently have visiting nurse or other home services: No Alcohol intake: never Comment: pt. is ambulatory, steady on foot. Patient Tobacco Use Status: Former Tobacco user e-Cigarette/Vaping Use: Never Used Second Hand Smoke Exposure: No Advance Directives Date on File: 04/27/24 service: No Current occupational status: retired Current occupational exposures/hazards: No Cognitive needs: No Hearing needs: No Vision needs: No Meds Allergies Allergy/AdvReac Type Severity Reaction Status Date / Time SADI Inhibitors Allergy Unknown FACIAL Verified 03/31/24 11:39 [SADI INHIBITORS] SWELLING lisinopril [LISINOPRIL] Allergy Unknown FACIAL Verified 03/31/24 11:39 SWELLING, hives, lip edema oxycodone [From PERCOCET] Allergy Unknown JOINT Verified 03/31/24 11:39 STIFFNESS peanut [PEANUTS] Allergy Unknown SWELLING,TH Verified 03/31/24 11:39 ROAT,HIVES Home Medications ?Medication ?Instructions ?Recorded ?Confirmed ?Last Taken ?Type tamsulosin 0.4 mg capsule 0.4 mg PO BID 07/01/20 04/30/24 04/27/24 History aspirin 81 mg tablet,delayed 81 mg PO DAILY 08/03/20 04/30/24 04/27/24 History release finasteride 5 mg tablet 5 mg PO DAILY 02/04/24 04/30/24 04/27/24 History albuterol sulfate 90 mcg/actuation 2 puff inhalation Q4H PRN wheezing 04/28/24 04/30/24 Unknown History aerosol inhaler brinzolamide 1 %-brimonidine 0.2 % 1 drp ophthalmic (eye) BID 04/28/24 04/30/24 Unknown History eye drops,suspension (Simbrinza) budesonide 160 mcg-glycopyr 9 2 inh inhalation BID 04/28/24 04/30/24 Unknown History mcg-formot 4.8 mcg/actuation HFA inhaler (Breztri Aerosphere) chlorthalidone 50 mg tablet 50 mg PO DAILY 04/28/24 04/30/24 04/27/24 History hydralazine 50 mg tablet 50 mg PO DAILY 04/28/24 04/30/24 04/27/24 History latanoprost 0.005 % eye drops 1 drp ophthalmic (eye) BEDTIME 04/28/24 04/30/24 04/27/24 History Physical Exam 2 Vital Signs: Vital Signs: Last Vital Signs Temp 97.8 F 04/29/24 07:35 Pulse 81 04/29/24 07:35 Resp 18 04/29/24 07:35 BP 154/74 H 04/29/24 07:35 Pulse Ox 93 04/29/24 07:35 O2 Del Method Room Air 04/29/24 07:35 BMI result Body Mass Index 31.5 Const: General: cooperative HEENT: Head: Yes normal to inspection Face and sinus: Yes normal facial exam Mouth: Normal oral and palatal mucosa present Teeth and gingiva: d entition normal Eyes: General: appearance normal, both eyes and all related structures P upils: Equal, round and reactive pupils present Resp: Effort & Inspection: normal respiratory effort Cardio: Rate: regular rate Rhythm: regular rhythm GI: Palpation (GI): Soft to palpation and nontender : General: Yes no CVA tenderness Back/Spine/Pelvis: Back: no CVA tenderness Skin: General skin exam: no rashes or lesions noted Neuro: General: moves all extremities Cranial nerves: Yes Equal, round and reactive pupils present Extrem: Other: left open area great toe ,plantar snip area Psych: Appearance: grossly normal Results Labs 04/28/24 05:26 04/28/24 09:07 Microbiology Microbiology Results: Microbiology 04/27/24 21:41 Blood - Venous Blood Culture - Preliminary No growth after 48 hours. 04/27/24 21:41 Blood - Venous Blood Culture - Preliminary No growth after 48 hours. Assessment and Plan (1) Osteomyelitis of great toe of left foot: Status: Acute Plan 6 weeks IV Daptomycin. CK and creatinine weekly. Can see outpatient.
== END 2024-04-29 16:21 | disposition home health service (06) | DRG 549 ==
PROVIDERS: Student in an Organized Health Care Education/Training Program; Admitting Provider Hospitalist; PCP Family Medicine; Visit Provider Family Medicine
DX: M00.9 Pyogenic arthritis, unspecified (principal); M86.172 Other acute osteomyelitis, left ankle and foot; E11.69 Type 2 diabetes mellitus with other specified complication; J44.9 Chronic obstructive pulmonary disease, unspecified; G47.33 Obstructive sleep apnea (adult) (pediatric); I10 Essential (primary) hypertension; I25.10 Atherosclerotic heart disease of native coronary artery without angina pectoris; E11.51 Type 2 diabetes mellitus with diabetic peripheral angiopathy without gangrene; N40.0 Benign prostatic hyperplasia without lower urinary tract symptoms; Z87.891 Personal history of nicotine dependence; Z79.82 Long term (current) use of aspirin; Z79.84 Long term (current) use of oral hypoglycemic drugs; Z79.899 Other long term (current) drug therapy
CPT/HCPCS: 36415; 36573; 80048; 80053; 82565; 82947; 83605; 85025; 85652; 86141; 87040; 94660; C1751; J0878; J1644; J2543; J3370

== ENCOUNTER → 2024-04-27 20:58 | Outpatient (BNV) | payer MEDICARE, SELFPAY | PROVIDERS: Admitting Provider Hospitalist; PCP Family Medicine; Visit Provider Student in an Organized Health Care Education/Training Program | DX: M86.9 Osteomyelitis, unspecified (principal) | CPT/HCPCS: 99223; 99232; 99239; G0180 ==

== ENCOUNTER → 2024-04-27 20:58 | Outpatient (BNV) | payer MEDICARE, SELFPAY | PROVIDERS: Admitting Provider Hospitalist; PCP Family Medicine; Visit Provider Surgery Vascular Surgery | DX: M86.9 Osteomyelitis, unspecified (principal) | CPT/HCPCS: 99222 ==

== ENCOUNTER → 2024-04-27 20:58 | Outpatient (BNV) | payer MEDICARE, SELFPAY | PROVIDERS: Admitting Provider Hospitalist; PCP Family Medicine; Visit Provider Internal Medicine | DX: M86.9 Osteomyelitis, unspecified (principal) | CPT/HCPCS: 99222 ==

== ENCOUNTER 2024-05-02 10:38 | Emergency (ER) | payer MEDICARE, SELFPAY ==
--- NOTE | ~2024-05-02 | US_ITS ---
EXAMINATION: US TRIPLEX LOWER EXTREMITY, LEFT CLINICAL INFORMATION: Foot and ankle swelling evaluate for DVT. COMPARISON: None available. TECHNIQUE: Color-flow triplex imaging with spectral analysis and compression Doppler were performed on the left lower extremity. FINDINGS: Respiratory variation, normal compression and augmented flow are noted throughout the left lower extremity. The visualized common femoral vein, superficial femoral vein, profunda femoral vein, popliteal vein and midcalf peroneal and posterior tibial venous segments show no evidence of deep venous thrombosis. There is no Flores's cyst. US/US venous duplex LE LT IMPRESSION: No evidence of deep venous thrombosis involving the left lower extremity. Electronically signed by: Dharmesh Decker MD 05/02/2024 08:02 PM EDT
[2024-05-02 10:53] VITALS: BP 153/76; PULSE 80; RESP 16; TEMP 36.6; O2SAT 95; BMI 31.8
--- NOTE | 2024-05-02 11:14 | PC.NURSE ---
PICC line flushes well but unable to get blood return.
[2024-05-02 11:23] LABS: MANUAL DIFF FLAG NO
[2024-05-02 11:28] LABS: Basophils Absolute Auto 0.1 X10*3/uL (0.0-0.2); Basophils Percent Auto 0.8 % (0-2); Eosinophils Absolute Auto 0.4 X10*3/uL (0.0-0.4); Eosinophils Percent Auto 4.7 % (0-4); Hematocrit 40.8 % (42.0-52.0); Hemoglobin 14.1 g/dl (14.0-18.0); Imm Gran Abs Auto 0.06 X10*3/uL (0.00-0.03); Imm Gran Pct Auto 0.7 % (0.0-0.4); Lymphocytes Absolute Auto 1.8 X10*3/uL (1.2-4.9); Lymphocytes Percent Auto 20.9 % (20-40); Mean Corpuscular HGB Conc 34.6 g/dl (31.0-36.0); Mean Corpuscular Hemoglobin 30.6 pg (27.0-33.0); Mean Corpuscular Volume 88.5 fL (80.0-98.0); Mean Platelet Volume 8.7 fL (9.4-12.4); Monocytes Absolute Auto 0.8 X10*3/uL (0.1-1.2); Monocytes Percent Auto 9.5 % (2-11); Neutrophils Absolute Auto 5.6 x10*3/uL (2.0-8.3); Neutrophils Percent Auto 63.4 % (45-73); Platelet Count 271 X10*3/uL (160-400); Red Blood Count 4.61 X10*6/uL (4.60-5.80); Red Cell Distribution Width 13.6 % (11.0-16.0); White Blood Count 8.8 X10*3/uL (4.8-10.8)
[2024-05-02 11:35] LABS: Anion Gap 14 (12-20); Blood Urea Nitrogen 14 mg/dL (9-16); Calcium 9.7 mg/dL (8.4-10.2); Carbon Dioxide 28 mmol/L (22-29); Chloride 99 mmol/L (96-108); Creatinine Clr Calc Pharmacy 82.3; Estimated Glomerular Filt Rate > 60; Glucose Random 107 mg/dL (60-115); Potassium 3.4 mmol/L (3.3-5.1); Sodium 138 mmol/L (135-145)
[2024-05-02 17:45] VITALS: BP 172/78; RESP 18; TEMP 36.7; O2SAT 94
--- NOTE | 2024-05-02 17:55 | PC.NURSE ---
Patient with swollen great left toe. Patient was admitted here, had a picc line placed, and was discharged home on IV abt. has been giving himself the IV abt daily but toe swelling has gotten worse again. right great toe swollen but without drainage. Patient denies pain in toe
--- NOTE | 2024-05-02 18:01 | ED.EXTPRO ---
HPI - Extremity Problem General Chief complaint: Extremity Problem Stated complaint: Swollen L foot just seen recently Time Seen by Provider: 05/02/24 17:47 Source: patient Mode of arrival: ambulatory Limitations: no limitations History of Present Illness ED Provider: Dr. Jose Scott HPI Narrative: 78-year-old male with a PMH significant for HTN, CAD, COPD, peripheral vascular disease, left carotid endarterectomy, [id number]-pecokvepm type 2 diabetes, BPH s/p TURP, and MISTY on CPAP who presents emergency department for evaluation of left foot and ankle swelling times 2 days. The patient was hospitalized here from 04/27/2024 until 04/29/2024 with acute osteomyelitis of the left great toe after being transferred from [facility] where he had 3 days of IV antibiotics (Zosyn and vancomycin) and an MRI which revealed ?peripherally enhancing abscess collection within the soft tissues along the medial aspect of great toe interphalangeal joint with enhancing IP joint effusion suggestive of septic arthritis, and likely mild acute osteomyelitis ?. Patient was evaluated by the vascular surgeon,Dr Del Castillo, attempted drainage it did not reveal any purulent material. Patient was discharged on IV daptomycin 6 weeks. 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 He states he noted swelling of his left foot and ankle which was new therefore he came back to the emergency department. He states that the redness over his great toe was unchanged, he denies any increased pain, fever, chills or fatigue. Related Data Home Medications ?Medication ?Instructions ?Recorded ?Confirmed tamsulosin 0.4 mg capsule 0.4 mg PO BID 07/01/20 04/30/24 aspirin 81 mg tablet,delayed 81 mg PO DAILY 08/03/20 04/30/24 release finasteride 5 mg tablet 5 mg PO DAILY 02/04/24 04/30/24 albuterol sulfate 90 mcg/actuation 2 puff inhalation Q4H PRN wheezing 04/28/24 04/30/24 aerosol inhaler brinzolamide 1 %-brimonidine 0.2 % 1 drp ophthalmic (eye) BID 04/28/24 04/30/24 eye drops,suspension (Simbrinza) budesonide 160 mcg-glycopyr 9 2 inh inhalation BID 04/28/24 04/30/24 mcg-formot 4.8 mcg/actuation HFA inhaler (Breztri Aerosphere) chlorthalidone 50 mg tablet 50 mg PO DAILY 04/28/24 04/30/24 hydralazine 50 mg tablet 50 mg PO DAILY 04/28/24 04/30/24 latanoprost 0.005 % eye drops 1 drp ophthalmic (eye) BEDTIME 04/28/24 04/30/24 Previous Rx's ?Medication ?Instructions ?Recorded blood sugar diagnostic #50 ea 07/26/20 naproxen 500 mg tablet 500 mg PO BID PRN pain 30 days #60 10/04/23 tabs amlodipine 10 mg tablet 10 mg PO DAILY #30 tabs 10/26/23 metformin 1,000 mg tablet 1,000 mg PO BID 90 days #180 tabs 01/15/24 rosuvastatin 10 mg tablet 10 mg PO BEDTIME 90 days #90 tabs 02/27/24 daptomycin 350 mg intravenous 474 mg IV Q24H #42 ea 04/29/24 solution sodium chloride 0.9 % (flush) 5 ml IVFLUSH TID #300 mL 04/29/24 (Normal Saline Flush 0.9 % injection syringe) Allergies Allergy/AdvReac Type Severity Reaction Status Date / Time SADI Inhibitors Allergy Unknown FACIAL Verified 05/02/24 10:59 [SADI INHIBITORS] SWELLING lisinopril [LISINOPRIL] Allergy Unknown FACIAL Verified 05/02/24 10:59 SWELLING, hives, lip edema oxycodone [From PERCOCET] Allergy Unknown JOINT Verified 05/02/24 10:59 STIFFNESS peanut [PEANUTS] Allergy Unknown SWELLING,TH Verified 05/02/24 10:59 ROAT,HIVES Review of Systems Review of Systems: Yes all other systems are reviewed and are negative [facility] Past Medical History Medical History COVID Benign prostatic hyperplasia with urinary obstruction MISTY on CPAP Bifascicular block Atherosclerotic cardiovascular disease COPD (chronic obstructive pulmonary disease) Carotid stenosis Hypertension Diabetes Hypercholesteremia Surgical History H/O colonoscopy Hx of elbow surgery History of eyelid surgery S/P TURP (status post transurethral resection of prostate) (~2019) Status post carotid surgery Hx of cataract Family History Family History Father CVD (cardiovascular disease) Mother No problems noted. Sister Cancer Sister Cancer Social History Social History Household Members: None Housing: Apartment Do you presently have visiting nurse or other home services: No Alcohol intake: current Alcohol intake frequency: a few times a week Comment: pt. is ambulatory, steady on foot. Patient Tobacco Use Status: Former Tobacco user e-Cigarette/Vaping Use: Never Used Second Hand Smoke Exposure: No Advance Directives Date on File: 04/27/24 service: No Current occupational status: retired Current occupational exposures/hazards: No Cognitive needs: No Hearing needs: No Vision needs: No Physical Exam Vital Signs: Vital Signs: Last Vital Signs Temp 0 F L 05/02/24 21:32 Pulse 0 L 05/02/24 21:32 Resp 16 05/02/24 21:32 BP 0/0 L 05/02/24 21:32 Pulse Ox 0 L 05/02/24 21:32 O2 Del Method Room Air 05/02/24 20:03 BMI result Body Mass Index 31.8 Vital signs revealed an elevated blood pressure-patient did not take his blood pressure medications today Exam: General: Awake, alert in no distress Extremities: Patient has dry desquamated skin over the left great toe with erythema of this area with no increased warmth, patient has nonpitting edema of his foot and ankle with no increased size of his calf on the left compared to the right Psych: Pleasant, cooperative Medical Decision Making Medical Decision Making MDM Narrative: 78-year-old male with a PMH significant for HTN, CAD, COPD, peripheral vascular disease, left carotid endarterectomy, [id number]-onxktguge type 2 diabetes, BPH s/p TURP, and MISTY on CPAP who presents emergency department for evaluation of left foot and ankle swelling times 2 days. The patient was hospitalized here from 04/27/2024 until 04/29/2024 with acute osteomyelitis of the left great toe in his currently on 6 weeks dapsone IV. Differential diagnosis: ?Includes but is not limited to cellulitis, DVT, dependent edema Following evaluation was ordered: CBC, BNP, duplex ultrasound left lower extremity Course: My interpretation patient's laboratory evaluation as follows: CBC was normal. CMP was normal. Patient's duplex ultrasound did not reveal any DVT from the patient's foot to his knee and I did discuss the limitation of this study with the patient. Patient does have a follow-up appointment on Sunday05/06/2024 and his PCP will need to determine if he needs a repeat ultrasound to rule out propagation of a clot. Patient most likely has dependent edema and I did tell him to keep his leg elevated over the next 3-4 days. He was given printed and verbal instructions and discharged home Admission/Observation Consideration of admission/observation: Escalation of care including admission/observation considered (Yes) Lab Data MDM Lab Attestation statement: I reviewed the patient's lab results. 05/02/24 11:16 05/02/24 11:16 Labs: Lab Results 05/02/24 Range/Units 11:16 WBC 8.8 (4.8-10.8) X10*3/uL RBC 4.61 (4.60-5.80) X10*6/uL Hgb 14.1 (14.0-18.0) g/dl Hct 40.8 L (42.0-52.0) % MCV 88.5 (80.0-98.0) fL MCH 30.6 (27.0-33.0) pg MCHC 34.6 (31.0-36.0) g/dl RDW 13.6 (11.0-16.0) % Plt Count 271 (160-400) X10*3/uL MPV 8.7 L (9.4-12.4) fL Immature Gran % (Auto) 0.7 H (0.0-0.4) % Neut % (Auto) 63.4 (45-73) % Lymph % (Auto) 20.9 (20-40) % [place] % (Auto) 9.5 (2-11) % Eos % (Auto) 4.7 H (0-4) % Baso % (Auto) 0.8 (0-2) % Lymph # (Auto) 1.8 (1.2-4.9) X10*3/uL [place] # (Auto) 0.8 (0.1-1.2) X10*3/uL Eos # (Auto) 0.4 (0.0-0.4) X10*3/uL Baso # (Auto) 0.1 (0.0-0.2) X10*3/uL Abs Immat Gran (auto) 0.06 H (0.00-0.03) X10*3/uL Absolute Neuts (auto) 5.6 (2.0-8.3) x10*3/uL Absolute Nucleated RBC 0.000 (0.0-0.012) X10*3/uL Nucleated RBC % (auto) 0.0 (0.0-0.2) /100WBC Sodium 138 (135-145) mmol/L Potassium 3.4 (3.3-5.1) mmol/L Chloride 99 (96-108) mmol/L Carbon Dioxide 28 (22-29) mmol/L Anion Gap 14 (12-20) BUN 14 (9-16) mg/dL Creatinine 0.84 (0.5-1.4) mg/dL Estim Creat Clear Calc 82.3 Estimated GFR > 60 Random Glucose 107 (60-115) mg/dL Calcium 9.7 (8.4-10.2) mg/dL Radiology Impression Discussion of test interpretation with radiology: I have reviewed the radiologist's reading. Radiologist Impression: US venous duplex LE LT IMPRESSION: No evidence of deep venous thrombosis involving the left lower extremity. Dictated By: Dharmesh Decker MD External Record Review External record reviewed: Inpatient record Chronic Conditions Patient?s care impacted by: Hypertension Discharge Plan Discharge Clinical Impression: Edema of left lower leg Patient Disposition: Home, Self-Care Additional Instructions: Your blood work was unremarkable. The duplex ultrasound of your left lower extremity did not reveal any blood clots. This test is limited and sometimes can miss a small blood clot from your ankle to your knee. If you continue to have swelling then it is important to get a repeat duplex ultrasound of your left lower extremity in 4-7 days. I want you to call your doctor on Sunday morning and let them know you were here and that you may need a repeat ultrasound in 4-7 days and they can determine the need for this test when they see you on Sunday. At this time, I think that your swelling is most likely caused by dependent edema from you walking around while you do in your job. I want you to keep your leg elevated to help reduce the swelling over the next 3-4 days. Take your blood pressure medicine when you get home and also give yourself your next dose of IV antibiotics and then restart the dose tomorrow at your usual time. Follow-up with your doctor in 2 days. Please return to the emergency department if your symptoms get worse or if you develop any symptoms that are concerning to you. Prescriptions: No Action (DME) blood sugar diagnostic Strip See Rx Instructions .ROUTE .MEDSUPPLY Qty: 50 2RF Rx Instructions: USE DIRECTED DAILY amlodipine 10 mg tablet 10 mg PO DAILY Qty: 30 6RF metformin 1,000 mg tablet 1,000 mg PO BID 90 Days Qty: 180 3RF rosuvastatin 10 mg tablet 10 mg PO BEDTIME 90 Days Qty: 90 3RF latanoprost 0.005 % drops 1 drp ophthalmic (eye) BEDTIME albuterol sulfate 90 mcg/actuation HFA aerosol inhaler 2 puff inhalation Q4H PRN (Reason: wheezing) Simbrinza 1-0.2 % drops,suspension 1 drp ophthalmic (eye) BID Breztri Aerosphere 160-9-4.8 mcg/actuation HFA aerosol inhaler 2 inh INHALATION BID chlorthalidone 50 mg tablet 50 mg PO DAILY hydralazine 50 mg tablet 50 mg PO DAILY daptomycin 350 mg Recon Soln 474 mg IV Q24H Qty: 42 0RF sodium chloride 0.9 % (flush) [Normal Saline Flush] Syringe 5 ml IVFLUSH TID Qty: 300 0RF naproxen 500 mg tablet 500 mg PO BID PRN (Reason: pain) 30 Days Qty: 60 2RF tamsulosin 0.4 mg capsule 0.4 mg PO BID aspirin 81 mg tablet,delayed release (DR/EC) 81 mg PO DAILY finasteride 5 mg tablet 5 mg PO DAILY Interventions: ED Discharge Assessment Last Done: 05/02/24 21:32 Discharge Date/Time: 05/02/24 21:40 Print Language: Malay
[2024-05-02 20:03] VITALS: BP 153/82; PULSE 69; RESP 16; TEMP 36.6; O2SAT 95
[2024-05-02 21:32] VITALS: BP 0/0; PULSE 0; RESP 16; TEMP -17.7; TEMP 0; O2SAT 0
== END 2024-05-02 21:40 | disposition home or self-care (01) ==
PROVIDERS: Emergency Provider Emergency Medicine Emergency Medical Services; PCP Family Medicine
DX: R60.0 Localized edema (principal); E11.9 Type 2 diabetes mellitus without complications; I10 Essential (primary) hypertension; E78.5 Hyperlipidemia, unspecified; Z87.891 Personal history of nicotine dependence; Z79.82 Long term (current) use of aspirin; Z79.84 Long term (current) use of oral hypoglycemic drugs; Z79.02 Long term (current) use of antithrombotics/antiplatelets; Z79.899 Other long term (current) drug therapy
CPT/HCPCS: 36415; 80048; 85025; 93971; 99284

== ENCOUNTER 2024-05-06 08:16 | Outpatient (AMB) | payer MEDICARE, SELFPAY ==
--- NOTE | 2024-05-06 08:35 | A.OFFPC_ITS ---
Vital Signs 05/06/24 08:36 05/06/24 08:46 Height 5 ft 8 in Weight 212 lb 6 oz BMI 32.3 BP 130/50 L 130/50 L Blood Pressure Location Rt brachial Rt brachial Position Sitting Sitting Respiration 12 Pulse 75 Pulse Source Pulse Oximeter Temp 97.5 F Temp Source Tympanic Pulse Oximetry (%) 95 Oxygen Delivery Method Room Air Intake Visit Reasons: Toe amputation Intake Note: follow up for left to infection Allergies SADI Inhibitors [SADI INHIBITORS] Allergy (Unknown, Verified 05/06/24 08:36) FACIAL SWELLING lisinopril [LISINOPRIL] Allergy (Unknown, Verified 05/06/24 08:36) FACIAL SWELLING, hives, lip edema oxycodone [From PERCOCET] Allergy (Unknown, Verified 05/06/24 08:36) JOINT STIFFNESS peanut [PEANUTS] Allergy (Unknown, Verified 05/06/24 08:36) SWELLING,THROAT,HIVES Tobacco use date assessed: 10/04/23 Dental Screening Dental Screen Date: 10/04/23 HPI Toe amputation HPI Details Pt went to [facility] Emergency Department on 04/24/2024 for pain and swelling of his L Great toe. He had tried to cut off some skin and cut to deeply causing bleeding. He controlled this but over the next couple of days redness and swelling and pain increased and erythema spread up foot and calf. His crm marketing specialist prescribed antibiotics but this may have been started a little too late and did not stop progression of inflammation/infection. At [facility] and imaging showed likely septic arthritis and osteomyelitis and he was started on IV Abx x 3 days. Patient was transferred to [facility] on 04/27/2024, continued on IV antibiotic and considered for amputation. However incision and drainage was attempted 1st and inflammation had improved on IV antibiotics. Infectious Disease recommended 6 week infusions of daptomycin. Patient was discharged on 04/29/2024 with a PICC line and is receiving daptomycin infusions. Had additional swelling and went back to ED Sunday. Patient had venous duplex ultrasound of left lower extremity on 05/02/2024. No evidence of DVT. Weekly labs while on daptomycin: CPK, CBC, BMP/Cr. Hold rosuvastatin while on daptomycin. TCM TCM Information Date of Discharge 04/29/24 Discharged From [facility] Interactive Contact Date (Reference documentation from this date) 05/06/24 [facility] Medical History COVID Benign prostatic hyperplasia with urinary obstruction MISTY on CPAP Bifascicular block Atherosclerotic cardiovascular disease COPD (chronic obstructive pulmonary disease) Carotid stenosis Hypertension Diabetes Hypercholesteremia Surgical History H/O colonoscopy Hx of elbow surgery History of eyelid surgery S/P TURP (status post transurethral resection of prostate) (~2019) Status post carotid surgery Hx of cataract Family History Father CVD (cardiovascular disease) Mother No problems noted. Sister Cancer Sister Cancer Social History Household Members: None Housing: Apartment Do you presently have visiting nurse or other home services: No Alcohol intake: current Alcohol intake frequency: a few times a week Comment: pt. is ambulatory, steady on foot. Patient Tobacco Use Status: Former Tobacco user e-Cigarette/Vaping Use: Never Used Second Hand Smoke Exposure: No Advance Directives Date on File: 04/27/24 service: No Current occupational status: retired Current occupational exposures/hazards: No Cognitive needs: No Hearing needs: No Vision needs: No Questionnaire Thrive Questionnaire Date Thrive assessed: 04/28/24 RUDY-7 AMB Questionnaire RUDY-7 Date RUDY - 7 assessed: 10/04/23 Source: Developed by Drs. Gary Damian, Elo Najera, Martin Ambrocio and colleagues, with an educational daina from [employer]). Review of Systems Const Denies chills, Denies fatigue, Denies fever(s), Denies headache(s) and Denies weakness ENT Denies dizziness and Denies headache(s) Card Denies dyspnea Resp Denies cough, Denies dyspnea, Denies wheezing and Denies other (shortness of breath) Musc Denies numbness and Denies tingling Neuro Denies dizziness, Denies headache(s), Denies numbness, Denies tingling and Denies weakness Psych Denies anxiety and Denies depression Endo Denies fatigue Aller/Immun Denies wheezing Physical exam (Primary Care) Vital Signs: Last Vital Signs Temp 97.5 F 05/06/24 08:36 Pulse 75 05/06/24 08:36 Resp 12 05/06/24 08:36 BP 130/50 L 05/06/24 08:46 Pulse Ox 95 05/06/24 08:36 Oxygen Delivery Method Room Air 05/06/24 08:36 BMI result Body Mass Index 32.3 Tobacco/Smoking Status: Tobacco use Status Tobacco use date assessed 10/04/23 05/06/24 08:39 Patient Tobacco Use Status Former Tobacco user 05/06/24 08:39 e-Cigarette/Vaping Use Never Used 05/06/24 08:39 Thrive Assessment: Date of Thrive Assessment Date Thrive assessed 04/28/24 05/06/24 08:39 Const General: well developed; No acute distress Nutritional Appearance: well nourished Orientation/consciousness: patient oriented x3 HENMT Head: Yes normocephalic and Yes atraumatic Eyes General: appearance normal, both eyes and all related structures Pupils: Equal, round and reactive pupils present EOM: EOMs intact bilaterally Resp Effort & Inspection: normal respiratory effort Neuro General: patient oriented x3 and gait normal Cranial nerves: Yes Equal, round and reactive pupils present Psych Affect: normal affect Assessment and Plan Assessment & Plan (1) Osteomyelitis of great toe of left foot: Code(s): M86.9 - Osteomyelitis, unspecified Plan: Osteomyelitis?of?left?great?toe. Patient?is?on?IV?daptomycin?x6?weeks?with?PICC?line. Recent?lab?work?last?Sunday?was?okay; no?elevated?white?count.??Normal?creatinine?level.??CK?not?acqui red?with?lab?work.??Reordering?this. DVT?ultrasound?last?week?was?negative. He?has?no?redness?erythema?or?swelling?of?calf.??No?tenderness?or?cords. Currently?no?indication?for?repeat?venous?Doppler?ultrasound. Left?great?toe?has?minimal?erythema?but?still?has?wound?that?is?slightly?open?wi th?significant?callus?surrounding?it. Patient?is?not?wearing?socks?or?a?bandage?on?his?foot. ?Advised?he?us e?a?bandage?and?socks. Continue?IV?antibiotics?as?prescribed. I?will?follow-up?with?him?in?2?weeks.??He?will?see?me?sooner?if?he?has?increasin g?redness?swelling?pain,?fevers?chills?or?other?concerning?symptoms. Orders: Orders Comprehensive Met. Panel Today M86.9 - Osteomyelitis, unspecified CK, Total+Isoenzymes, Serum Today M86.9 - Osteomyelitis, unspecified Complete Blood Count Auto Diff Today M86.9 - Osteomyelitis, unspecified, Z00.00 - Encounter for general adult medical examination without abnormal findings Coding Level of Care Code TCM High MDM <= 7 Days Diagnoses Osteomyelitis of great toe of left foot M86.9
[2024-05-06 08:36] VITALS: BP 130/50; PULSE 75; RESP 12; TEMP 36.4; O2SAT 95; BMI 32.3
[2024-05-06 08:46] VITALS: BP 130/50
== END 2024-05-06 09:11 | disposition home or self-care (01) ==
PROVIDERS: PCP Family Medicine; Visit Provider Family Medicine
DX: M86.9 Osteomyelitis, unspecified (principal)

== ENCOUNTER → 2024-05-06 08:16 | Outpatient (BNVA) | payer MEDICARE, SELFPAY | PROVIDERS: PCP Family Medicine; Visit Provider Family Medicine ==

== ENCOUNTER 2024-05-08 11:43 | Outpatient (REF) | payer MEDICARE, SELFPAY ==
[2024-05-08 12:06] LABS: MANUAL DIFF FLAG NO
[2024-05-08 12:29] LABS: Basophils Absolute Auto 0.1 X10*3/uL (0.0-0.2); Basophils Percent Auto 0.7 % (0-2); Eosinophils Absolute Auto 0.3 X10*3/uL (0.0-0.4); Eosinophils Percent Auto 3.7 % (0-4); Hemoglobin 14.2 g/dl (14.0-18.0); Imm Gran Abs Auto 0.05 X10*3/uL (0.00-0.03); Imm Gran Pct Auto 0.6 % (0.0-0.4); Lymphocytes Absolute Auto 1.9 X10*3/uL (1.2-4.9); Lymphocytes Percent Auto 22.1 % (20-40); Mean Corpuscular HGB Conc 34.6 g/dl (31.0-36.0); Mean Corpuscular Hemoglobin 30.1 pg (27.0-33.0); Mean Platelet Volume 8.8 fL (9.4-12.4); Monocytes Absolute Auto 0.8 X10*3/uL (0.1-1.2); Monocytes Percent Auto 8.9 % (2-11); Neutrophils Absolute Auto 5.4 x10*3/uL (2.0-8.3); Platelet Count 289 X10*3/uL (160-400); Red Blood Count 4.71 X10*6/uL (4.60-5.80); Red Cell Distribution Width 13.3 % (11.0-16.0); White Blood Count 8.5 X10*3/uL (4.8-10.8)
[2024-05-08 12:58] LABS: Alanine Aminotransferase 23 U/L (0-40); Albumin Level 4.2 g/dL (3.5-5.0); Alkaline Phosphatase 45 U/L (39-117); Anion Gap 12 (12-20); Aspartate Amino Transferase 23 U/L (5-37); Bilirubin Total 0.4 mg/dL (0.0-1.0); Blood Urea Nitrogen 15 mg/dL (9-16); Calcium 9.7 mg/dL (8.4-10.2); Carbon Dioxide 30 mmol/L (22-29); Chloride 98 mmol/L (96-108); Estimated Glomerular Filt Rate > 60; Glucose Random 113 mg/dL (60-115); Potassium 3.3 mmol/L (3.3-5.1); Sodium 137 mmol/L (135-145); Total Protein 7.2 g/dL (6.5-8.0)
[2024-05-13 21:58] LABS: CK-BB None Detected (None Detected); CK-MB 1 % (<5); CK-MM 90 % (95-100); Creatine Kinase Isoenzyme Itrp MACRO CK TYPE 1; Creatine Kinase,Total,Serum 283 U/L (44-196)
== END 2024-05-08 11:44 | disposition home or self-care (01) ==
LOC: HO.LAB 11:43
PROVIDERS: PCP Family Medicine; Visit Provider Family Medicine
DX: Z00.00 Encounter for general adult medical examination without abnormal findings (principal); M86.9 Osteomyelitis, unspecified
CPT/HCPCS: 36415; 80053; 82552; 85025

== ENCOUNTER 2024-05-13 12:17 | Outpatient (AMB) | payer MEDICARE, SELFPAY ==
--- NOTE | 2024-05-13 12:18 | MHC.OFFVIS ---
Vital Signs 05/13/24 12:20 Height 5 ft 8 in Weight 212 lb BMI 32.2 BP 148/60 H Blood Pressure Location Rt brachial Position Sitting Pulse 100 Pulse Source Palpation Intake Visit Reasons: 2 week hosp follow up toe wound Intake Note: 2 week follow up Left Great toe wound, is on IV Abx for 6 weeks. Has had some other issues w/ BP and pulse. Accompanied by: Self / Same As Patient Allergies SADI Inhibitors [SADI INHIBITORS] Allergy (Unknown, Verified 05/13/24 12:24) FACIAL SWELLING lisinopril [LISINOPRIL] Allergy (Unknown, Verified 05/13/24 12:24) FACIAL SWELLING, hives, lip edema oxycodone [From PERCOCET] Allergy (Unknown, Verified 05/13/24 12:24) JOINT STIFFNESS peanut [PEANUTS] Allergy (Unknown, Verified 05/13/24 12:24) SWELLING,THROAT,HIVES HPI HPI 2 week hosp follow up toe wound: Details: Very pleasant 78-year-old gentleman well known to me for prior history of carotid disease presented to the hospital with osteomyelitis of the left great toe. He had originally gone to [facility] and was subsequently transferred to us. Upon workup no collection was noted and the foot appear to be draining nicely. He subsequently received a PICC line and was placed on 6 weeks of IV daptomycin. He has already completed 2 weeks of this. He now presents for follow-up evaluation of his left great toe. [facility]LY [facility] Medical History COVID Benign prostatic hyperplasia with urinary obstruction MISTY on CPAP Bifascicular block Atherosclerotic cardiovascular disease COPD (chronic obstructive pulmonary disease) Carotid stenosis Hypertension Diabetes Hypercholesteremia Surgical History H/O colonoscopy Hx of elbow surgery History of eyelid surgery S/P TURP (status post transurethral resection of prostate) (~2019) Status post carotid surgery Hx of cataract Family History Father CVD (cardiovascular disease) Mother No problems noted. Sister Cancer Sister Cancer Social History Household Members: None Housing: Apartment Do you presently have visiting nurse or other home services: No Alcohol intake: current Alcohol intake frequency: a few times a week Comment: pt. is ambulatory, steady on foot. Patient Tobacco Use Status: Former Tobacco user e-Cigarette/Vaping Use: Never Used Second Hand Smoke Exposure: No Advance Directives Date on File: 04/27/24 service: No Current occupational status: retired Current occupational exposures/hazards: No Cognitive needs: No Hearing needs: No Vision needs: No Review of Systems Const All systems reviewed & are unremarkable except as noted in HPI and below Reports no additional complaints ENT Reports Normal hearing present Card Denies chest pain, Denies chest pain at rest, Denies chest pain with activity and Denies pedal edema Resp Denies cough GI Denies abdominal pain Musc Denies abnormal gait, Denies muscle cramps and Denies radiating pain into limb Skin/Breast Denies skin ulcer and Denies wounds Neuro Reports Normal hearing present and Denies abnormal gait Psych Reports no additional complaints Physical Exam Vital Signs: Last Vital Signs Pulse 100 05/13/24 12:20 BP 148/60 H 05/13/24 12:20 BMI result Body Mass Index 32.2 Const General: cooperative, healthy appearing and comfortable Orientation/consciousness: oriented to person, oriented to place and oriented to time HEENT Head: Yes normal to inspection Neck Neck: Yes normal visual inspection Carotids: no bruits Chest Chest palpation & inspection: normal inspection of the chest Resp Effort & Inspection: normal respiratory effort and able to speak in complete sentences Auscultation: clear to auscultation bilaterally, no crackles, no rales, no rhonchi and no wheezes Cardio Other: Bilateral palpable dorsalis pedis pulses Rate: regular rate Rhythm: regular rhythm Heart sounds: S1 normal heart sound present and S2 normal heart sound present Bruits: no carotid bruits Peripheral pulses: Peripheral pulses 2+ throughout GI Inspection: Yes normal to inspection Skin Other: Great toe healed Wounds: no wounds Hair: normal Neuro General: oriented to person, oriented to place and oriented to time Cranial nerves: Yes CN's II-XII intact bilaterally and Yes Normal hearing present Cognition (Neuro): normal cognition Motor exam (neuro): 5/5 motor strength present throughout Extrem Other: venous exam: No significant superficial varicosities or spider telangiectasias, minimal edema General: No clubbing, No cyanosis and No edema Psych Appearance: grossly normal Mental Status: mental status grossly normal Speech and movement: Normal speech and movement present Assessment & Plan Assessment & Plan (1) Osteomyelitis of great toe of left foot: Code(s): M86.9 - Osteomyelitis, unspecified Category: Medical Plan: In short left great toe has gone on to heal. I did discuss the importance of completing antibiotic regimen. He does have Infectious Disease follow-up. In addition I did discuss routine moisturization of both feet. Thank you for allowing us to assist in his care if there are any questions or concerns please do not hesitate to contact us. Please note a longitudinal relationship has been created with the patient and we have been following and surveillance this chronic condition. (2) Carotid stenosis, bilateral: Comment: 12/02/2015- left carotid endarterectomy Code(s): I65.23 - Occlusion and stenosis of bilateral carotid arteries Category: Medical Plan: Keep annual surveillance follow-up. Coding Level of Care Code Est Pt Level 4 (79797) Complex EM visit Add On G2211 Diagnoses Osteomyelitis of great toe of left foot M86.9 Carotid stenosis, bilateral I65.23
[2024-05-13 12:20] VITALS: BP 148/60; PULSE 100; BMI 32.2
== END 2024-05-13 12:57 | disposition home or self-care (01) ==
PROVIDERS: PCP Family Medicine; Visit Provider Surgery Vascular Surgery
DX: M86.9 Osteomyelitis, unspecified (principal); I65.23 Occlusion and stenosis of bilateral carotid arteries
CPT/HCPCS: 99214; G2211

== ENCOUNTER → 2024-05-13 12:17 | Outpatient (BNVA) | payer MEDICARE, SELFPAY | PROVIDERS: PCP Family Medicine; Visit Provider Surgery Vascular Surgery | DX: M86.9 Osteomyelitis, unspecified (principal); I65.23 Occlusion and stenosis of bilateral carotid arteries | CPT/HCPCS: 99212 ==

== ENCOUNTER 2024-05-15 05:51 | Inpatient (IN) | payer MEDICARE, SELFPAY ==
[2024-05-15] VITALS (11 sets, daily range): BP systolic 128–168; BP diastolic 45–63; PULSE 88–108; RESP 15–29; TEMP 36.3–37.6; O2SAT 86–95; BMI 31.9
--- NOTE | 2024-05-15 | ECG_ITS ---
Test Reason : DYSPENA Blood Pressure : / mmHG Vent. Rate : 099 BPM Atrial Rate : 099 BPM P-R Int : 140 ms QRS Dur : 156 ms QT Int : 378 ms P-R-T Axes : 000 -59 053 degrees QTc Int : 485 ms Sinus rhythm with Premature atrial complexes Right bundle branch block Left anterior fascicular block Bifascicular block Abnormal ECG When compared with ECG of 14-AUG-2022 06:47, No significant change was found Referred By: Generic ED Physician Electronically Signed By:ABE GUTIÉRREZ
--- NOTE | ~2024-05-15 | US_ITS ---
EXAMINATION: US TRIPLEX UPPER EXTREMITY, LEFT CLINICAL INFORMATION: Left upper extremity/shoulder pain. PICC line in place COMPARISON: CTA chest from 05/18/2024 TECHNIQUE: Color-flow triplex imaging with spectral analysis and compression Doppler was performed on the left upper extremity. FINDINGS: The left internal jugular, subclavian, and axillary veins are patent and free of thrombus. PICC line is visualized within the lumen of the axillary and subclavian veins without surrounding thrombus. The imaged segment of the left brachial, cephalic and basilic veins are patent. PICC line is seen in the proximal brachial vein. The mid segment of the brachial vein is not evaluated due to overlying bandage from the PICC line catheter. The distal segment of the brachial vein is patent. Spectral doppler waveforms are normal. The brachial, basilic, cephalic veins are patent and compressible. US/US venous duplex UE LT IMPRESSION: No evidence of deep venous thrombosis involving the left upper extremity. Electronically signed by: Gunner Ngo MD 05/21/2024 09:56 AM EDT
--- NOTE | ~2024-05-15 | CT_ITS ---
EXAMINATION: CT ANGIOGRAM OF THE CHEST WITH AND WITHOUT CONTRAST (CT PULMONARY ANGIOGRAM FOR PE) CLINICAL INFORMATION: Hypoxia. COMPARISON: Chest radiograph 05/15/2024. CTA chest 08/14/2022. TECHNIQUE: Multidetector volumetric imaging was performed of the chest following the administration of 65 mL Omnipaque 350 intravenous contrast. No contrast reaction reported Sagittal, coronal, and MIP oblique sagittal (through the chest only) reformatted images were obtained on the CT workstation, uploaded to PACS, and reviewed. Total exam dose-length product 586 mGy-cm This CT examination was performed using dose optimization techniques as appropriate, variously including the following: *Automated exposure control *Adjustment of mA and/or kV according to patient size (this includes techniques or standardized protocols for targeted exams where dose is matched to indication/reason for exam; i.e. extremities or head) *Use of iterative reconstruction technique FINDINGS: QUALITY OF STUDY/CONTRAST BOLUS: Suboptimal. PULMONARY ARTERIES: Evaluation is limited due to motion multifocal airspace opacities. No central pulmonary emboli. No discrete large proximal segmental pulmonary emboli. THORACIC AORTA: Moderate to severe atherosclerotic disease. Normal caliber of the abdominal aorta. LUNG: Multifocal groundglass and consolidative airspace opacities with admixed smooth interlobular septal thickening. Background of emphysema and peripheral reticulation which could indicate some degree of fibrosis. Central airways are patent. Evaluation of pulmonary nodules is essentially nondiagnostic due to multifocal airspace opacities. PLEURA: Trace bilateral pleural fluid. No pneumothorax. MEDIASTINUM: Normal heart size. No pericardial effusion. No evidence of septal bowing or right heart strain. Normal appearance of the thyroid gland. New mediastinal and hilar lymphadenopathy, for example 1.4 cm short axis aortopulmonary lymph node (6:195) and 1.4 cm short axis right hilar lymph node (6:228). Severe multivessel coronary artery calcifications. CHEST WALL/AXILLA: No axillary or internal mammary lymphadenopathy. OSSEOUS STRUCTURES: No acute or suspicious osseous abnormality. UPPER ABDOMEN: Unchanged 1.6 cm right adrenal nodule compared to 08/14/2022, most suggestive of an adenoma, for which no imaging follow-up is recommended. CT/CT angio chest PE protocol IMPRESSION: 1. Evaluation is limited due to motion and multifocal airspace opacities. However, accounting for these limitations, there is no evidence of central pulmonary emboli nor discrete large proximal segmental pulmonary emboli. 2. Extensive multifocal consolidative and groundglass opacities suspicious for a severe atypical pneumonia, limiting evaluation of underlying nodules/masses. Recommend short-term follow-up CT chest to rule out underlying occult malignancy and ensure resolution. 3. Trace bilateral pleural fluid. 4. Background of emphysema and peripheral reticulation which could indicate some degree of fibrosis. 5. New mediastinal and hilar lymphadenopathy, most likely reactive in the context of the airspace opacities. Attention on follow-up in future examinations recommended. 6. Severe multivessel coronary calcifications. VTE: indeterminate. Electronically signed by: Devika Prater MD 05/18/2024 01:40 PM EDT
--- NOTE | ~2024-05-15 | XR_ITS ---
EXAMINATION: XR CHEST CLINICAL INFORMATION: Increasing shortness of breath COMPARISON: CT angiography chest 08/14/2022, chest radiograph 08/08/2022 TECHNIQUE: 2 views of the chest were obtained. FINDINGS: Grossly normal heart size. Moderate aortic calcific atherosclerosis. Minimal blunting of the left right costophrenic sulci suspicious for trace bilateral pleural effusions. No pneumothoraces. Multifocal airspace opacities and scattered fine and medium pulmonary reticular opacities. 1.8 cm focal dense rounded opacification with indistinct margins in projection with the peripheral left middle lung zone. XR/XR chest 2V IMPRESSION: *Multifocal interstitial and airspace disease suspicious for pneumonia or asymmetric pulmonary edema. Findings include a 1.8 cm ill-defined rounded density in projection with the peripheral left middle lung zone which may represent focal pulmonary consolidation. Recommend follow-up chest radiographs following resolution of acute symptoms to confirm resolution of this 1.8 cm density and exclude the presence of a pulmonary nodule/malignancy. Alternatively, findings could be further evaluated with CT of the thorax as clinically indicated. Electronically signed by: Tyrese Gentile MD 05/15/2024 07:46 AM EDT
[2024-05-15] MEDS: Albuterol/Iprat 2.5/0.5MG 3 ML AMPUL.NEB INHALE (06:22)
[2024-05-15 06:34] LABS: Alanine Aminotransferase 21 U/L (0-40); Albumin Level 3.7 g/dL (3.5-5.0); Alkaline Phosphatase 49 U/L (39-117); Anion Gap 16 (12-20); Aspartate Amino Transferase 21 U/L (5-37); Bilirubin Total 0.9 mg/dL (0.0-1.0); Blood Urea Nitrogen 18 mg/dL (9-16); Calcium 9.4 mg/dL (8.4-10.2); Carbon Dioxide 27 mmol/L (22-29); Chloride 93 mmol/L (96-108); Creatinine Clr Calc Pharmacy 61.8; Estimated Glomerular Filt Rate > 60; Glucose Random 192 mg/dL (60-115); Potassium 3.1 mmol/L (3.3-5.1); Sodium 133 mmol/L (135-145); Total Protein 6.9 g/dL (6.5-8.0)
[2024-05-15 06:40] LABS: B Type Natriuretic Peptide 67 pg/mL (<100)
--- NOTE | 2024-05-15 06:52 | ED_ITS ---
HPI - SOB/Dyspnea General Chief Complaint: Dyspnea Stated Complaint: DIFF BREATHING Time Seen by Provider: 05/15/24 06:06 Source: patient Mode of arrival: ambulatory Limitations: no limitations History of Present Illness ED Provider: Dr. Lawler HPI Narrative: Pt is a 78yo male with HTN, Asthma, recent osteo of toe on home abx with PICC line who presents with increasing Shortness of breath for 3 days. He is on home CPAP but not oxygen. He states he is bringing up dark sputum and has a very dry mouth MD elicited complaint: shortness of breath and cough Pertinent past history: asthma Onset (ago): day(s) Related Data Home Medications ?Medication ?Instructions ?Recorded ?Confirmed tamsulosin 0.4 mg capsule 0.4 mg PO BID 07/01/20 04/30/24 aspirin 81 mg tablet,delayed 81 mg PO DAILY 08/03/20 04/30/24 release finasteride 5 mg tablet 5 mg PO DAILY 02/04/24 04/30/24 albuterol sulfate 90 mcg/actuation 2 puff inhalation Q4H PRN wheezing 04/28/24 04/30/24 aerosol inhaler brinzolamide 1 %-brimonidine 0.2 % 1 drp ophthalmic (eye) BID 04/28/24 04/30/24 eye drops,suspension (Simbrinza) budesonide 160 mcg-glycopyr 9 2 inh inhalation BID 04/28/24 04/30/24 mcg-formot 4.8 mcg/actuation HFA inhaler (Breztri Aerosphere) chlorthalidone 50 mg tablet 50 mg PO DAILY 04/28/24 04/30/24 hydralazine 50 mg tablet 50 mg PO DAILY 04/28/24 04/30/24 latanoprost 0.005 % eye drops 1 drp ophthalmic (eye) BEDTIME 04/28/24 04/30/24 daptomycin 500 mg intravenous mg IV 05/13/24 solution doxycycline hyclate 100 mg capsule 100 mg PO BID 05/13/24 Previous Rx's ?Medication ?Instructions ?Recorded blood sugar diagnostic #50 ea 07/26/20 naproxen 500 mg tablet 500 mg PO BID PRN pain 30 days #60 10/04/23 tabs amlodipine 10 mg tablet 10 mg PO DAILY #30 tabs 10/26/23 metformin 1,000 mg tablet 1,000 mg PO BID 90 days #180 tabs 01/15/24 rosuvastatin 10 mg tablet 10 mg PO BEDTIME 90 days #90 tabs 02/27/24 daptomycin 350 mg intravenous 474 mg IV Q24H #42 ea 04/29/24 solution sodium chloride 0.9 % (flush) 5 ml IVFLUSH TID #300 mL 04/29/24 (Normal Saline Flush 0.9 % injection syringe) Allergies Allergy/AdvReac Type Severity Reaction Status Date / Time SADI Inhibitors Allergy Unknown FACIAL Verified 05/15/24 06:02 [SADI INHIBITORS] SWELLING lisinopril [LISINOPRIL] Allergy Unknown FACIAL Verified 05/15/24 06:02 SWELLING, hives, lip edema oxycodone [From PERCOCET] Allergy Unknown JOINT Verified 05/15/24 06:02 STIFFNESS peanut [PEANUTS] Allergy Unknown SWELLING,TH Verified 05/15/24 06:02 ROAT,HIVES Review of Systems 2 Review of Systems: Yes all other systems are reviewed and are negative Neurologic: Denies Sensory deficit (Neuro) PMFSH Past Medical History Medical History COVID Benign prostatic hyperplasia with urinary obstruction MISTY on CPAP Bifascicular block Atherosclerotic cardiovascular disease COPD (chronic obstructive pulmonary disease) Carotid stenosis Hypertension Diabetes Hypercholesteremia Surgical History H/O colonoscopy Hx of elbow surgery History of eyelid surgery S/P TURP (status post transurethral resection of prostate) (~2019) Status post carotid surgery Hx of cataract Family History Family History Father CVD (cardiovascular disease) Mother No problems noted. Sister Cancer Sister Cancer Social History Social History Household Members: None Housing: Apartment Do you presently have visiting nurse or other home services: No Alcohol intake: current Alcohol intake frequency: a few times a week Comment: pt. is ambulatory, steady on foot. Patient Tobacco Use Status: Former Tobacco user e-Cigarette/Vaping Use: Never Used Second Hand Smoke Exposure: No Advance Directives: Yes Advance Directives Information Provided: Yes Advance Directives on File: No Advance Directives Date on File: 04/27/24 service: No Current occupational status: retired Current occupational exposures/hazards: No Cognitive needs: No Hearing needs: No Vision needs: No Physical Exam 2 Vital Signs: Vital Signs: Last Vital Signs Temp 99.6 F 05/15/24 06:01 Pulse 96 05/15/24 06:24 Resp 16 05/15/24 06:24 BP 168/58 H 05/15/24 06:01 Pulse Ox 91 L 05/15/24 06:13 O2 Del Method Nasal Cannula 05/15/24 06:13 O2 Flow Rate 3 05/15/24 06:13 BMI result Body Mass Index 31.9 Const: Other: Male short of breath, RA pulse ox 86% Nutritional Appearance: average body habitus Orientation/consciousness: oriented to person and patient oriented x3 Limitations: no limitations HEENT: Head: Yes normal to inspection Ears: external ears normal General nose exam: Normal external nose present Mouth: Normal oral and palatal mucosa present and oropharynx normal Throat: Yes posterior oropharynx normal Eyes: General: appearance normal, both eyes and all related structures Neck: Other: supple Neck: Yes normal visual inspection Chest: Chest palpation & inspection: normal inspection of the chest Resp: Other: rales at both bases Cardio: Jugular venous distension: no JVD Rate: regular rate Rhythm: r egular rhythm Heart sounds: S1 normal heart sound present and S2 normal heart sound present GI: Inspection: Yes normal to inspection Palpation (GI): Soft to palpation, nontender and No hepatosplenomegaly present Auscultation: normal bowel sounds : General: Yes no CVA tenderness Back/Spine/Pelvis: Back: no CVA tenderness Skin: General skin exam: no rashes or lesions noted Neuro: General: oriented to person and patient oriented x3 Cranial nerves: Yes CN's II-XII intact bilaterally Motor exam (neuro): 5/5 motor strength present throughout Sensory Exam: No Sensory deficit (Neuro) Extrem: General: Yes normal to inspection Psych: Appearance: grossly normal Course Reevaluation(s) Reevaluation #1: Will sign out to Dr. Carrillo for final disposition and evaluation of labs and xray Time: 07:02 Medications Administered Discontinued Medications Generic Name Dose Route Start Last Admin Trade Name Freq PRN Reason Stop Dose Admin Albuterol/Ipratropium 3 ml 05/15/24 06:12 05/15/24 06:22 Albuterol/Iprat 2.5/0.5mg 3 Ml Ampul.Neb INHALE 05/15/24 06:13 3 ml ONCE ONE Administration Medical Decision Making Differential Diagnosis Differential Diagnoses: The differential diagnosis associated with the presentation includes (COPD exacerbation, pneumonia, covid, flu, RSV) Admission/Observation Consideration of admission/observation: Escalation of care including admission/observation considered (upon arrival admission was considered) Lab Data 05/15/24 06:10 05/15/24 06:10 Labs: Lab Results 05/15/24 Range/Units 06:10 Sodium 133 L (135-145) mmol/L Potassium 3.1 L (3.3-5.1) mmol/L Chloride 93 L (96-108) mmol/L Carbon Dioxide 27 (22-29) mmol/L Anion Gap 16 (12-20) BUN 18 H (9-16) mg/dL Creatinine 1.12 (0.5-1.4) mg/dL Estim Creat Clear Calc 61.8 Estimated GFR > 60 Random Glucose 192 H (60-115) mg/dL Calcium 9.4 (8.4-10.2) mg/dL Total Bilirubin 0.9 (0.0-1.0) mg/dL AST 21 (5-37) U/L ALT 21 (0-40) U/L Alkaline Phosphatase 49 (39-117) U/L Troponin I High Sens 32.0 D (<3.5-35.0) ng/L B-Natriuretic Peptide 67 (<100) pg/mL Total Protein 6.9 (6.5-8.0) g/dL Albumin 3.7 (3.5-5.0) g/dL Independent Interpretation I performed an independent interpretation of an: EKG (sinus 100, RBBB) Chronic Conditions Patient?s care impacted by: Hypertension Discharge Plan Discharge Clinical Impression: Shortness of breath, Hypoxia Patient Disposition: Still a Patient Prescriptions: No Action (DME) blood sugar diagnostic Strip See Rx Instructions .ROUTE .MEDSUPPLY Qty: 50 2RF Rx Instructions: USE DIRECTED DAILY amlodipine 10 mg tablet 10 mg PO DAILY Qty: 30 6RF metformin 1,000 mg tablet 1,000 mg PO BID 90 Days Qty: 180 3RF rosuvastatin 10 mg tablet 10 mg PO BEDTIME 90 Days Qty: 90 3RF latanoprost 0.005 % drops 1 drp ophthalmic (eye) BEDTIME albuterol sulfate 90 mcg/actuation HFA aerosol inhaler 2 puff inhalation Q4H PRN (Reason: wheezing) Simbrinza 1-0.2 % drops,suspension 1 drp ophthalmic (eye) BID Breztri Aerosphere 160-9-4.8 mcg/actuation HFA aerosol inhaler 2 inh INHALATION BID chlorthalidone 50 mg tablet 50 mg PO DAILY hydralazine 50 mg tablet 50 mg PO DAILY daptomycin 350 mg Recon Soln 474 mg IV Q24H Qty: 42 0RF sodium chloride 0.9 % (flush) [Normal Saline Flush] Syringe 5 ml IVFLUSH TID Qty: 300 0RF naproxen 500 mg tablet 500 mg PO BID PRN (Reason: pain) 30 Days Qty: 60 2RF tamsulosin 0.4 mg capsule 0.4 mg PO BID aspirin 81 mg tablet,delayed release (DR/EC) 81 mg PO DAILY finasteride 5 mg tablet 5 mg PO DAILY doxycycline hyclate 100 mg capsule 100 mg PO BID daptomycin 500 mg recon soln IV Print Language: Egyptian
[2024-05-15 07:02] LABS: Basophils Absolute Auto 0.1 X10*3/uL (0.0-0.2); Basophils Percent Auto 0.3 % (0-2); Eosinophils Absolute Auto 1.1 X10*3/uL (0.0-0.4); Hemoglobin 13.4 g/dl (14.0-18.0); Imm Gran Abs Auto 0.12 X10*3/uL (0.00-0.03); Imm Gran Pct Auto 0.7 % (0.0-0.4); Lymphocytes Absolute Auto 1.8 X10*3/uL (1.2-4.9); MANUAL DIFF FLAG SCAN; Mean Corpuscular HGB Conc 34.4 g/dl (31.0-36.0); Mean Corpuscular Hemoglobin 29.8 pg (27.0-33.0); Mean Corpuscular Volume 86.7 fL (80.0-98.0); Monocytes Absolute Auto 1.7 X10*3/uL (0.1-1.2); Monocytes Percent Auto 9.5 % (2-11); Neutrophils Absolute Auto 13.1 x10*3/uL (2.0-8.3); Neutrophils Percent Auto 73.5 % (45-73); Platelet Count 328 X10*3/uL (160-400); Red Cell Distribution Width 13.4 % (11.0-16.0); SCAN SMEAR FLAG 1; White Blood Count 17.9 X10*3/uL (4.8-10.8)
[2024-05-15 07:10] LABS: Influenza A PCR NEGATIVE (Negative); Influenza B PCR NEGATIVE (Negative); Resp Syncy Virus RNA Qual PCR NEGATIVE (Negative); SARS COV2 PCR INHOUSE NEGATIVE (Negative)
[2024-05-15 07:38] LABS: SLIDE REVIEW VERIFIED
[2024-05-15] MEDS: methylPREDNISolone Sod Succ 125 MG/2 ML VIAL IVPUSH (08:11)
--- NOTE | 2024-05-15 09:27 | PM.IMHP ---
History of Present Illness Date of Service: 05/15/24 Chief Complaint: SOB/cough 78 yo M with a pmhx of COPD (not on home O2), asthma, MISTY on CPAP, HTN, NIDDM, CAD, HLD, BPH s/p TURP, currently being treated for osteomyelitis L great toe with daptomycin via PICC line, presented to ED with c/o SOB, cough, few episodes of dark brown sputum and dry mouth for the past 3 days. unable to lay flat. has needed to use his albuterol much more often, usually 1x/day. denies sick contacts. no N/V/D or abd pain. given breathing treatment, methylprednisone, doxy and ceftriazone in ED with some relief. Review of Systems Constitutional: Constitutional: Denies body ache(s) and Denies headache(s) Eyes: Eyes: Denies eye discharge and Denies loss of vision ENT: Denies facial pain, Denies headache(s), Denies nasal congestion and Denies nasal discharge Cardiovascular: Cardiovascular: Denies leg edema, Denies palpitations, Reports dyspnea and Reports orthopnea Respiratory: Respiratory: Reports change in phlegm color, Reports cough and Reports dyspnea Gastrointestinal: Gastrointestinal: Denies abdominal pain, Denies constipation, Denies diarrhea, Denies nausea and Denies vomiting Neurologic: Denies headache(s) and Denies loss of vision Endocrine: Endocrine: Denies palpitations [facility] Medical History (Updated 05/15/24 @ 15:07 by Abeba Esposito PA-C) Hypokalemia COVID Benign prostatic hyperplasia with urinary obstruction MISTY on CPAP Bifascicular block Atherosclerotic cardiovascular disease COPD (chronic obstructive pulmonary disease) Carotid stenosis Hypertension Diabetes Hypercholesteremia Functional capacity: independent ambulation Family History Father CVD (cardiovascular disease) Mother No problems noted. Sister Cancer Sister Cancer Surgical History H/O colonoscopy Hx of elbow surgery History of eyelid surgery S/P TURP (status post transurethral resection of prostate) (~2019) Status post carotid surgery Hx of cataract Social History Household Members: None Housing: House Do you presently have visiting nurse or other home services: Yes Alcohol intake: current Alcohol intake frequency: a few times a week Comment: pt. is ambulatory, steady on foot. Patient Tobacco Use Status: Former Tobacco user e-Cigarette/Vaping Use: Never Used Second Hand Smoke Exposure: No Substance Use Type: Prescription Drugs Advance Directives Date on File: 04/27/24 service: No Current occupational status: retired Current occupational exposures/hazards: No Cognitive needs: No Hearing needs: No Vision needs: No Ebola Risk: Travel/Contact With Anyone From Affected Area/s: No Meds Allergies Allergy/AdvReac Type Severity Reaction Status Date / Time SADI Inhibitors Allergy Unknown FACIAL Verified 05/15/24 06:02 [SADI INHIBITORS] SWELLING lisinopril [LISINOPRIL] Allergy Unknown FACIAL Verified 05/15/24 06:02 SWELLING, hives, lip edema oxycodone [From PERCOCET] Allergy Unknown JOINT Verified 05/15/24 06:02 STIFFNESS peanut [PEANUTS] Allergy Unknown SWELLING,TH Verified 05/15/24 06:02 ROAT,HIVES Active Medications: Current Medications Doxycycline Hyclate 100 mg/ (Sodium Chloride) 250 mls @ 166.67 mls/hr IV ONCE ONE Stop: 05/15/24 10:04 Home Medications ?Medication ?Instructions ?Recorded ?Confirmed ?Last Taken ?Type tamsulosin 0.4 mg capsule 0.4 mg PO BID 07/01/20 05/15/24 05/15/24 History aspirin 81 mg tablet,delayed 81 mg PO DAILY 08/03/20 05/15/24 05/15/24 History release finasteride 5 mg tablet 5 mg PO DAILY 02/04/24 05/15/24 05/15/24 History albuterol sulfate 90 mcg/actuation 2 puff inhalation Q4H PRN wheezing 04/28/24 05/15/24 Unknown History aerosol inhaler brinzolamide 1 %-brimonidine 0.2 % 1 drp ophthalmic (eye) BID 04/28/24 05/15/24 05/15/24 History eye drops,suspension (Simbrinza) budesonide 160 mcg-glycopyr 9 2 inh inhalation BID 04/28/24 05/15/24 05/15/24 History mcg-formot 4.8 mcg/actuation HFA inhaler (Breztri Aerosphere) chlorthalidone 50 mg tablet 50 mg PO DAILY 04/28/24 05/15/24 05/15/24 History hydralazine 50 mg tablet 50 mg PO DAILY 04/28/24 05/15/24 05/15/24 History latanoprost 0.005 % eye drops 1 drp ophthalmic (eye) BEDTIME 04/28/24 05/15/24 05/15/24 History daptomycin 500 mg intravenous 500 mg IV Q24H 05/13/24 05/15/24 05/14/24 History solution Physical Exam Vital Signs and Narrative: Vital Signs: Last Vital Signs Temp 98.7 F 05/15/24 07:49 Pulse 102 H 05/15/24 07:49 Resp 16 05/15/24 07:49 BP 138/50 L 05/15/24 07:49 Pulse Ox 92 05/15/24 07:49 O2 Del Method Room Air 05/15/24 07:49 O2 Flow Rate 3 05/15/24 06:13 BMI result Body Mass Index 31.9 const: A+Ox3, NAD cardio: RRR, no M, no LE edema resp: fine crackles B lower lobes. no labored breathing, using NC abd: soft, NT, active x4 Results Labs 05/16/24 03:59 05/16/24 03:59 Labs: Laboratory Results - last 24 hr 05/15/24 05/15/24 06:10 06:27 MCV 86.7 MCH 29.8 MCHC 34.4 RDW 13.4 Plt Count 328 MPV 9.0 L Immature Gran % (Auto) 0.7 H Neut % (Auto) 73.5 H Lymph % (Auto) 10.0 L Craig % (Auto) 9.5 Eos % (Auto) 6.0 H Baso % (Auto) 0.3 Lymph # (Auto) 1.8 Craig # (Auto) 1.7 H Eos # (Auto) 1.1 H Baso # (Auto) 0.1 Abs Immat Gran (auto) 0.12 H Absolute Neuts (auto) 13.1 H Absolute Nucleated RBC 0.000 Nucleated RBC % (auto) 0.0 Smear Tech's Comments VERIFIED Anion Gap 16 Estim Creat Clear Calc 61.8 Estimated GFR > 60 Random Glucose 192 H Calcium 9.4 Total Bilirubin 0.9 AST 21 ALT 21 Alkaline Phosphatase 49 Troponin I High Sens 32.0 D B-Natriuretic Peptide 67 Total Protein 6.9 Albumin 3.7 Influenza Type A (PCR) NEGATIVE Influenza Type B (PCR) NEGATIVE RSV RNA Qual (PCR) NEGATIVE SARS-CoV-2 RNA (RT-PCR) NEGATIVE Imaging Radiologist's Impressions: Impressions Chest X-Ray 05/15/24 06:30 IMPRESSION: *Multifocal interstitial and airspace disease suspicious for pneumonia or asymmetric pulmonary edema. Findings include a 1.8 cm ill-defined rounded density in projection with the peripheral left middle lung zone which may represent focal pulmonary consolidation. Recommend follow-up chest radiographs following resolution of acute symptoms to confirm resolution of this 1.8 cm density and exclude the presence of a pulmonary nodule/malignancy. Alternatively, findings could be further evaluated with CT of the thorax as clinically indicated. Electronically signed by: Tyrese Gentile MD 05/15/2024 07:46 AM EDT RP Assessment and Plan (1) Pneumonia: Qualifiers: Laterality: bilateral Pneumonia type: due to unspecified organism Status: Acute (2) COPD (chronic obstructive pulmonary disease): Qualifiers: COPD type: COPD with acute lower respiratory infection Qualified Code(s): J44.0 - Chronic obstructive pulmonary disease with (acute) lower respiratory infection Status: Acute (3) Hypoxia: Status: Acute (4) Osteomyelitis of great toe of left foot: Status: Acute Plan 78 yo M with a pmhx of COPD (not on home O2), asthma, MISTY on CPAP, HTN, NIDDM, CAD, HLD, currently being treated for osteomyelitis L great toe with daptomycin via PICC line, c/o SOB, cough, few episodes of dark brown sputum and dry mouth for the past 3 days. Bilateral pneumonia with rounded consolidation and ?pneumonia vs pulmonary nodule on CXR, elevated WBC, viral swab neg - feeling better since starting treatment - serum procalcitonin - urine for legionella and strep pneumo - sputum culture - continue ceftriaxone, doxycycline - continue to monitor blood cultures COPD exacerbation - continue methylprednisone - duoneb Q4H PRN - continue home inhaler ICS combo Osteomyelitis left great toe - continue daptomycin hypokalemia/frequent PACs - add telemetry - replenish potassium 1 PO dose - monitor labs HTN - hold amlodipine, chlorthalidone and hydralazine for now given systolic 50 CAD - continue ASA 81 HLD - hold statin while on dapto T2DM - SSI - diabetic diet BPH - continue finasteride and tamsulosin MISTY - CPAP at night full code pt admitted due to hypoxemia due to COPD exacerbation and bilateral pneumonia. Quality Stroke Does the patient have a stroke diagnosis?: No VTE Prior VTE?: No VTE Risk Level:: Medical - moderate - high VTE Device Contraindication: N/A - Device Ordered VTE Drug Contraindication: N/A - Med Ordered
[2024-05-15] MEDS: cefTRIAXone sodium 1 GM in 0.9 % Sodium Chloride 50 ML IV (09:36)
--- NOTE | 2024-05-15 09:52 | ECG_ITS ---
Test Reason : ARRYTHMIA Blood Pressure : / mmHG Vent. Rate : 091 BPM Atrial Rate : 091 BPM P-R Int : 120 ms QRS Dur : 154 ms QT Int : 396 ms P-R-T Axes : 030 -56 031 degrees QTc Int : 487 ms Sinus rhythm with Premature atrial complexes Right bundle branch block Left anterior fascicular block Bifascicular block Abnormal ECG When compared with ECG of 15-MAY-2024 06:10, No significant change was found Referred By: Yossi Carrillo Electronically Signed By:ABE GUTIÉRREZ
[2024-05-15] MEDS: Doxycycline Hyclate 100 MG in 0.9 % Sodium Chloride 250 ML 166.67 MG IV ×2 (10:00→21:13)
[2024-05-15] MEDS: Enoxaparin Sodium 40 MG/0.4 ML SYRINGE SUBCUT (10:02)
--- NOTE | 2024-05-15 10:07 | PHA.MEDREC ---
Addendum entered by Delgado Johnson 05/15/24 10:58: Reviewed Original Note: Pharmacy Consult ? Medication Reconciliation Pharmacy has completed the medication reconciliation. Spoke to patient to confirm med list. Patient states he no longer takes Doxycycline hyclate 100 mg and Naproxen 500 mg. Patient says He gets Daptomycin 500 mg IV Q24H. Patient get it delivered from [facility] ( ) confirmed Patient last fill was for Daptomycin 500 mg [facility] specialty pharmacy on 05/14/24 total of 7 bags for 7 days. Patient states is on Rouvastatin 10 mg, however he was told to HOLD medication while taking Daptomtcin.
[2024-05-15 10:16] LABS: Procalcitonin 0.27 ng/mL
[2024-05-15] MEDS: Tamsulosin HCL 0.4 MG CAPSULE PO ×2 (12:18→21:13)
[2024-05-15] MEDS: Finasteride 5 MG TABLET PO (12:18)
[2024-05-15] MEDS: Aspirin Enteric Coated 81 MG TABLET.DR PO (12:18)
--- NOTE | 2024-05-15 12:20 | PC.NURSE ---
Am medications given, VS updated. Pt denies any complaints at this time.
[2024-05-15 12:31] LABS: Glucose, Whole Blood 225 mg/dL (60-115)
[2024-05-15] MEDS: Insulin Lispro 100 UNIT/ML 3 ML VIAL SUBCUT ×3 (13:42→21:12)
--- NOTE | 2024-05-15 13:52 | PM.EVENT ---
Event Note Date of Service: 05/15/24 Event Note: Addendum to history and physical by the advanced practice provider, MARKELL Esposito I interviewed and examined the patient. I discussed their presentation and management with the HANNA. I reviewed the history and physical and agree with the documentation, with the following additions and corrections: 78yo M with HTN, CAD, COPD, peripheral vascular disease, left carotid endarterectomy, [id number] type 2 diabetes, BPH s/p TURP, and MISTY on CPAP recently admitted here for osteomyelitis of the L great toe, discharged with PICC line and daptomycin with end date of 06/09/24. He presents with 2d of progresisve dyspnea with purulent cough and is found to have bilateral pneumonia. Viral testing negative. PCT 0.27. WBCs 17.9. On telemetry frequent PVCs/PACs and slightly tachycardic 90s-100s. Admit to telemetry. Antibiotic coverage with doxycycline + ceftriaxone; check BCx + urinary antigens. Treat COPD exac with steroids + nebs. Continue daptomycin for osteomyelitis. Time Spent With Patient Time: Total time managing care of this patient today ____ minutes.
[2024-05-15] MEDS: Potassium Chloride Packet 20 MEQ PACKET 40 MEQ PO (14:27)
[2024-05-15] MEDS: DAPTOmycin 500 MG in 0.9 % Sodium Chloride 50 ML 100 MG IV (16:20)
--- NOTE | 2024-05-15 16:59 | MHC.EDTECH ---
AZRA Castelan said to wait until dinner comes to check blood sugar .
--- NOTE | 2024-05-15 18:07 | MHC.EDTECH ---
Patient blood sugar check ,RN aware of result of 232 .
[2024-05-15 18:11] LABS: Glucose, Whole Blood 232 mg/dL (60-115)
--- NOTE | 2024-05-15 18:20 | PC.NURSE ---
patient provided with dinner tray and medicated per sliding scale, remains on secured entrance monitor, offering no complaints at this time, awaiting inpatient bed assignment, plan of care remains ongoing
[2024-05-15] MEDS: methylPREDNISolone Sod Succ 40 MG/ML VIAL IVPUSH (19:16)
--- NOTE | 2024-05-15 19:38 | MHC.EDTECH ---
Patient was set up with dinner ,ate 100 % and drank 360 ml fluids ,2000 rounding and vitals done ,Pt walk to bathroom void 350 ml .Patient watching television ,no apparent distress notes ,Plan of care continue .
[2024-05-15 21:09] LABS: Glucose, Whole Blood 259 mg/dL (60-115)
--- NOTE | 2024-05-15 21:12 | MHC.EDTECH ---
Patient blood sugar check ,Patient was given fresh Pitcher of ice water and gram crackers .
[2024-05-15] MEDS: Latanoprost 0.005 % Ophth Sol 2.5 ML DROPS 1 DROP EYE-BOTH (21:45)
[2024-05-16] VITALS (11 sets, daily range): BP systolic 115–168; BP diastolic 59–84; PULSE 78–98; RESP 16–20; TEMP 36.3–36.8; O2SAT 90–99
[2024-05-16 00:54] LABS: Glucose, Whole Blood 259 mg/dL (60-115)
[2024-05-16] MEDS: 0.9 % Sodium Chloride Flush 3 ML SYRINGE IVFLUSH ×4 (01:22→21:36)
--- NOTE | 2024-05-16 04:16 | PC.NURSE ---
notified MD of need to give o2 through CPAP to keep oxygen saturations above 90% tonight.
[2024-05-16 04:33] LABS: Hematocrit 39.6 % (42.0-52.0); Hemoglobin 13.7 g/dl (14.0-18.0); Mean Corpuscular HGB Conc 34.6 g/dl (31.0-36.0); Mean Corpuscular Hemoglobin 30.2 pg (27.0-33.0); Mean Corpuscular Volume 87.4 fL (80.0-98.0); Platelet Count 307 X10*3/uL (160-400); Red Blood Count 4.53 X10*6/uL (4.60-5.80); Red Cell Distribution Width 13.2 % (11.0-16.0); White Blood Count 18.7 X10*3/uL (4.8-10.8)
[2024-05-16 04:48] LABS: Anion Gap 12 (12-20); Blood Urea Nitrogen 27 mg/dL (9-16); Calcium 9.3 mg/dL (8.4-10.2); Carbon Dioxide 30 mmol/L (22-29); Chloride 97 mmol/L (96-108); Creatinine Clr Calc Pharmacy 64.7; Estimated Glomerular Filt Rate > 60; Glucose Random 241 mg/dL (60-115); Potassium 3.3 mmol/L (3.3-5.1); Sodium 136 mmol/L (135-145)
[2024-05-16] MEDS: methylPREDNISolone Sod Succ 40 MG/ML VIAL IVPUSH (06:00)
[2024-05-16 06:04] LABS: Glucose, Whole Blood 204 mg/dL (60-115)
[2024-05-16 07:05] LABS: Glucose, Whole Blood 207 mg/dL (60-115)
[2024-05-16] MEDS: Insulin Lispro 100 UNIT/ML 3 ML VIAL SUBCUT ×4 (09:00→21:27)
--- NOTE | 2024-05-16 09:48 | HO.PM.IMPN ---
Subjective Subjective Date of Service: 05/16/24 Interval History: breathing improved; still coughing no fever Review of Systems Review of Systems: Yes all other systems are reviewed and are negative Physical Exam Vital Signs: Vital Signs: Last Vital Signs Temp 97.8 F 05/16/24 07:31 Pulse 81 05/16/24 07:31 Resp 18 05/16/24 07:31 BP 155/70 H 05/16/24 07:31 Pulse Ox 95 05/16/24 07:31 O2 Del Method Nasal Cannula 05/16/24 07:31 O2 Flow Rate 3 05/16/24 07:31 BMI result Body Mass Index 31.9 Gen: in no acute distress HEENT: sclera anicteric, moist mucus membranes Neck: supple Lungs: diminished bilaterally Heart: regular rate and rhythm, no murmurs Abd: soft, non-tender, non-distended Ext: no edema, LUE PICC without infection Skin: warm/well-perfused, L great toe with lateral dry eschar without erythema or swelling Neuro: alert and oriented x3, no focal findings Psych: appropriate affect Objective Data Active Medications Acetaminophen (Acetaminophen 325 Mg Tablet) 650 mg PO Q6H PRN PRN Reason: Pain, Mild (Pain Scale 1-3), fever or headache Albuterol/Ipratropium (Albuterol/Iprat 2.5/0.5mg 3 Ml Ampul.Neb) 3 ml INHALE Q4H PRN PRN Reason: Shortness of Breath/Wheezing Aspirin (Aspirin Enteric Coated 81 Mg Tablet.) 81 mg PO DAILY [facility] Last Admin: 05/15/24 12:18 Dose: 81 mg Documented By: ELI Calcium Carbonate (Calcium Carbonate 750 Mg Tab.Chew) 750 mg PO Q4H PRN PRN Reason: Heartburn Enoxaparin Sodium (Enoxaparin Sodium 40 Mg/0.4 Ml Syringe) 40 mg SUBCUT Q24H [facility] Last Admin: 05/15/24 10:02 Dose: 40 mg Documented By: NATHEN Finasteride (Finasteride 5 Mg Tablet) 5 mg PO DAILY [facility] Last Admin: 05/15/24 12:18 Dose: 5 mg Documented By: ELI Glucose (Glucose Gel 15 Gm Gel..Gram.) 15 gm PO Q15M PRN; Protocol PRN Reason: per Hypoglycemia Standing Ord. Dextrose (D10) 250 mls @ 750 mls/hr IV Q15M PRN; Protocol PRN Reason: per Hypoglycemia Standing Ord. Daptomycin 500 mg/ Sodium (Chloride) 60 mls @ 100 mls/hr IV Q24H [facility] Last Infusion: 05/15/24 18:20 Dose: Infused Documented By: YURI Doxycycline Hyclate 100 mg/ (Sodium Chloride) 250 mls @ 166.67 mls/hr IV Q12H [facility] Last Infusion: 05/16/24 01:29 Dose: Infused Documented By: AILYN Ceftriaxone Sodium 1 gm/ (Sodium Chloride) 50 mls @ 100 mls/hr IV Q24H [facility] Insulin Human Lispro (Insulin Lispro 100 Unit/Ml 3 Ml Vial) 0 unit SUBCUT QIDACHS [facility]; Protocol Last Admin: 05/15/24 21:12 Dose: 6 unit Documented By: AILYN Latanoprost (Latanoprost 0.005 % Ophth Rosa 2.5 Ml Drops) 1 drop EYE-BOTH BEDTIME [facility] Last Admin: 05/15/24 21:45 Dose: 1 drop Documented By: AILYN Magnesium Hydroxide (Milk Of Magnesia 30 Ml Oral.Susp) 30 ml PO DAILY PRN PRN Reason: Constipation Melatonin (Melatonin 3 Mg Tablet) 6 mg PO BEDTIME PRN PRN Reason: Insomnia Methylprednisolone Sodium Succinate (Methylprednisolone Sod Succ 40 Mg/Ml Vial) 40 mg IVPUSH Q12H [facility] Last Admin: 05/16/24 06:00 Dose: 40 mg Documented By: CHARLIE Non-Formulary Medication (Brinzolamide-Brimonidine [Simbrinza]) 1 drop EYE-BOTH BID [facility] Non-Formulary Medication (Ahtvlaoree-Kfwreifg-Mufiwauifq [Breztri Aerosphere]) 2 inhalation INHALE BID [facility] Sodium Chloride (0.9 % Sodium Chloride Flush 3 Ml Syringe) 3 ml IVFLUSH QSHIFT [facility] Last Admin: 05/16/24 01:22 Dose: 3 ml Documented By: AILYN Tamsulosin HCl (Tamsulosin Hcl 0.4 Mg Capsule) 0.4 mg PO BID [facility] Last Admin: 05/15/24 21:13 Dose: 0.4 mg Documented By: AILYN Labs 05/16/24 03:59 05/16/24 03:59 Labs: Laboratory Results - last 24 hr 05/15/24 05/15/24 05/15/24 06:10 11:49 18:06 MCV MCH MCHC RDW Plt Count MPV Absolute Nucleated RBC Nucleated RBC % (auto) Anion Gap Estim Creat Clear Calc Estimated GFR POC Glucose 225 H 232 H Random Glucose Calcium Procalcitonin 0.27 05/15/24 05/16/24 05/16/24 21:05 00:46 03:59 MCV 87.4 MCH 30.2 MCHC 34.6 RDW 13.2 Plt Count 307 MPV 9.0 L Absolute Nucleated RBC 0.000 Nucleated RBC % (auto) 0.0 Anion Gap 12 Estim Creat Clear Calc 64.7 Estimated GFR > 60 POC Glucose 259 H 259 H Random Glucose 241 H Calcium 9.3 Procalcitonin 05/16/24 05/16/24 05:59 06:59 MCV MCH MCHC RDW Plt Count MPV Absolute Nucleated RBC Nucleated RBC % (auto) Anion Gap Estim Creat Clear Calc Estimated GFR POC Glucose 204 H 207 H Random Glucose Calcium Procalcitonin Microbiology Microbiology Results: Microbiology 05/15/24 06:27 Blood Culture - Preliminary Blood - Venous No growth after 24 hours. 05/15/24 06:20 Blood Culture - Preliminary Blood - Venous No growth after 24 hours. 05/15/24 19:23 Gram Stain - Final Sputum - Expectorated Sputum Culture - Final Assessment and Plan (1) Pneumonia: Status: Acute (2) COPD (chronic obstructive pulmonary disease): Status: Acute Plan d2 78yo M with COPD not on home O2, MISTY on CPAP, asthma, HTN, NIDDM, CAD, HLD; currently undergoing treatment for osteomyelitis of L great toe with daptomycin presenting with 3d of dyspnea + productive cough admitted for hypoxia due to PNA + COPD/asthma exac PNA - ceftriaxone/doxycycline 05/15-, follow BCx, trend PCT, urinary antigens for Legionella and pneumococcus pending COPD/asthma exac - methylprednisolone, nebs, home inhalers AHRF - wean O2 as tolerated, treat inciting causes as above osteomyelitis L great toe - continue daptomycin, end date 06/09/24 hypoK - repleted HTN - held amlodipine + hydralazine + chlorthalidone for soft BP CAD - ASA, hold statin while on daptomycin DM2 with steroid-induced hyperglycemia - hold OHGs, give clarence-dose lispro BPH - continue tamsulosin + finasteride MISTY - CPAP at night VTE ppx - enoxaparin dispo - to resume VNA services upon d/c In my clinical judgment, the patient requires continued inpatient hospitalization for the following reasons: IV ABX + hypoxia Total time managing care of this patient today: 40 minutes. Quality Stroke Does the patient have a stroke diagnosis?: No VTE Prior VTE?: No VTE Risk Level:: Medical - moderate - high VTE Device Contraindication: N/A - Device Ordered VTE Drug Contraindication: N/A - Med Ordered
[2024-05-16 10:09] LABS: Magnesium 2.2 mg/dL (1.6-2.6)
[2024-05-16 10:50] LABS: Glucose, Whole Blood 278 mg/dL (60-115)
[2024-05-16] MEDS: Enoxaparin Sodium 40 MG/0.4 ML SYRINGE SUBCUT (11:06)
[2024-05-16] MEDS: cefTRIAXone sodium 1 GM in 0.9 % Sodium Chloride 50 ML IV (11:07)
[2024-05-16] MEDS: Tamsulosin HCL 0.4 MG CAPSULE PO ×2 (11:07→21:27)
[2024-05-16] MEDS: Aspirin Enteric Coated 81 MG TABLET.DR PO (11:07)
[2024-05-16] MEDS: Finasteride 5 MG TABLET PO (11:07)
[2024-05-16] MEDS: Doxycycline Hyclate 100 MG in 0.9 % Sodium Chloride 250 ML 166.67 MG IV (11:09)
--- NOTE | 2024-05-16 12:50 | MHC.CM.PN ---
IMM 05/16. Pt self-care, lives at home alone. Pt was receiving [facility] for [facility], PICC line in place. Pt will transport himself home at discharge (car is in lot). New HCP completed with pt, now on file. PCP: Dr. Denis Diehl
[2024-05-16 16:30] LABS: Glucose, Whole Blood 213 mg/dL (60-115)
[2024-05-16] MEDS: DAPTOmycin 500 MG in 0.9 % Sodium Chloride 50 ML 100 MG IV (16:51)
[2024-05-16] MEDS: Albuterol/Iprat 2.5/0.5MG 3 ML AMPUL.NEB INHALE (19:55)
[2024-05-16 20:27] LABS: Glucose, Whole Blood 208 mg/dL (60-115)
[2024-05-16] MEDS: Latanoprost 0.005 % Ophth Sol 2.5 ML DROPS 1 DROP EYE-BOTH (21:30)
[2024-05-17] VITALS (10 sets, daily range): BP systolic 130–168; BP diastolic 65–84; PULSE 68–102; RESP 18–20; TEMP 36.1–36.9; O2SAT 87–100
[2024-05-17] MEDS: Doxycycline Hyclate 100 MG in 0.9 % Sodium Chloride 250 ML 166.67 MG IV (04:41)
[2024-05-17] MEDS: methylPREDNISolone Sod Succ 40 MG/ML VIAL IVPUSH (06:44)
[2024-05-17 07:05] LABS: Hematocrit 40.2 % (42.0-52.0); Hemoglobin 13.4 g/dl (14.0-18.0); Mean Corpuscular HGB Conc 33.3 g/dl (31.0-36.0); Mean Corpuscular Hemoglobin 29.8 pg (27.0-33.0); Mean Corpuscular Volume 89.3 fL (80.0-98.0); Mean Platelet Volume 9.6 fL (9.4-12.4); Platelet Count 318 X10*3/uL (160-400); Red Cell Distribution Width 13.4 % (11.0-16.0); White Blood Count 22.5 X10*3/uL (4.8-10.8)
[2024-05-17 07:14] LABS: Anion Gap 13 (12-20); Blood Urea Nitrogen 27 mg/dL (9-16); Calcium 9.2 mg/dL (8.4-10.2); Carbon Dioxide 30 mmol/L (22-29); Chloride 98 mmol/L (96-108); Creatinine Clr Calc Pharmacy 82.4; Estimated Glomerular Filt Rate > 60; Glucose Random 176 mg/dL (60-115); Magnesium 2.3 mg/dL (1.6-2.6); Potassium 3.4 mmol/L (3.3-5.1); Sodium 138 mmol/L (135-145)
[2024-05-17 07:29] LABS: Procalcitonin 0.15 ng/mL
[2024-05-17 08:16] LABS: Glucose, Whole Blood 161 mg/dL (60-115)
[2024-05-17] MEDS: 0.9 % Sodium Chloride Flush 3 ML SYRINGE IVFLUSH ×2 (08:31→15:23)
[2024-05-17] MEDS: Finasteride 5 MG TABLET PO (08:31)
[2024-05-17] MEDS: Insulin Lispro 100 UNIT/ML 3 ML VIAL SUBCUT ×4 (08:31→21:27)
[2024-05-17] MEDS: Tamsulosin HCL 0.4 MG CAPSULE PO ×2 (08:31→21:27)
[2024-05-17] MEDS: Aspirin Enteric Coated 81 MG TABLET.DR PO (08:31)
[2024-05-17] MEDS: cefTRIAXone sodium 1 GM in 0.9 % Sodium Chloride 50 ML IV (08:32)
--- NOTE | 2024-05-17 10:32 | HO.PM.IMPN ---
Subjective Subjective Date of Service: 05/17/24 Interval History: still short of breath + requiring O2 afebrile coughing sputum Review of Systems Review of Systems: Yes all other systems are reviewed and are negative Physical Exam Vital Signs: Vital Signs: Last Vital Signs Temp 97.0 F 05/17/24 07:52 Pulse 72 05/17/24 07:52 Resp 20 05/17/24 07:52 BP 168/75 H 05/17/24 07:52 Pulse Ox 92 05/17/24 07:52 O2 Del Method Nasal Cannula 05/17/24 07:52 O2 Flow Rate 3 05/17/24 07:52 BMI result Body Mass Index 31.9 Gen: in no acute distress HEENT: sclera anicteric, moist mucus membranes Neck: supple Lungs: diminished bilaterally Heart: regular rate and rhythm, no murmurs Abd: soft, non-tender, non-distended Ext: no edema, LUE PICC without infection Skin: warm/well-perfused, L great toe with lateral dry eschar without erythema or swelling Neuro: alert and oriented x3, no focal findings Psych: appropriate affect Objective Data Active Medications Acetaminophen (Acetaminophen 325 Mg Tablet) 650 mg PO Q6H PRN PRN Reason: Pain, Mild (Pain Scale 1-3), fever or headache Albuterol Sulfate (Albuterol Sulfate (0.083%) 2.5 Mg/3 Ml Vial.Neb) 2.5 mg INHALE Q2H PRN PRN Reason: Shortness of Breath/Wheezing Albuterol/Ipratropium (Albuterol/Iprat 2.5/0.5mg 3 Ml Ampul.Neb) 3 ml INHALE RQ4H WHILE AWAKE [facility] Aspirin (Aspirin Enteric Coated 81 Mg Tablet.) 81 mg PO DAILY [facility] Last Admin: 05/17/24 08:31 Dose: 81 mg Documented By: FRANTZ Calcium Carbonate (Calcium Carbonate 750 Mg Tab.Chew) 750 mg PO Q4H PRN PRN Reason: Heartburn Enoxaparin Sodium (Enoxaparin Sodium 40 Mg/0.4 Ml Syringe) 40 mg SUBCUT Q24H [facility] Last Admin: 05/16/24 11:06 Dose: 40 mg Documented By: HILDA Finasteride (Finasteride 5 Mg Tablet) 5 mg PO DAILY [facility] Last Admin: 05/17/24 08:31 Dose: 5 mg Documented By: FRANTZ Fluticasone/Vilanterol (Fluticasone/Vilanterol 200/25 Blst.W.Dev) 1 puff INHALE RDAILY [facility] Glucose (Glucose Gel 15 Gm Gel..Gram.) 15 gm PO Q15M PRN; Protocol PRN Reason: per Hypoglycemia Standing Ord. Dextrose (D10) 250 mls @ 750 mls/hr IV Q15M PRN; Protocol PRN Reason: per Hypoglycemia Standing Ord. Daptomycin 500 mg/ Sodium (Chloride) 60 mls @ 100 mls/hr IV Q24H [facility] Last Infusion: 05/16/24 17:56 Dose: Infused Documented By: HILDA Doxycycline Hyclate 100 mg/ (Sodium Chloride) 250 mls @ 166.67 mls/hr IV Q12H [facility] Last Infusion: 05/17/24 06:11 Dose: Infused Documented By: RICHMOND Ceftriaxone Sodium 1 gm/ (Sodium Chloride) 50 mls @ 100 mls/hr IV Q24H [facility] Last Infusion: 05/17/24 09:23 Dose: Infused Documented By: FRANTZ Insulin Human Lispro (Insulin Lispro 100 Unit/Ml 3 Ml Vial) 0 unit SUBCUT QIDACHS [facility]; Protocol Last Admin: 05/17/24 08:31 Dose: 4 unit Documented By: FRANTZ Latanoprost (Latanoprost 0.005 % Ophth Rosa 2.5 Ml Drops) 1 drop EYE-BOTH BEDTIME [facility] Last Admin: 05/16/24 21:30 Dose: 1 drop Documented By: RICHMOND Magnesium Hydroxide (Milk Of Magnesia 30 Ml Oral.Susp) 30 ml PO DAILY PRN PRN Reason: Constipation Melatonin (Melatonin 3 Mg Tablet) 6 mg PO BEDTIME PRN PRN Reason: Insomnia Methylprednisolone Sodium Succinate (Methylprednisolone Sod Succ 40 Mg/Ml Vial) 40 mg IVPUSH Q24H [facility] Last Admin: 05/17/24 06:44 Dose: 40 mg Documented By: RICHMOND Non-Formulary Medication (Brinzolamide-Brimonidine [Simbrinza]) 1 drop EYE-BOTH BID [facility] Non-Formulary Medication (Wpgdticuyk-Mrflyjin-Gwdqpkhijk [Breztri Aerosphere]) 2 inhalation INHALE BID [facility] Sodium Chloride (0.9 % Sodium Chloride Flush 3 Ml Syringe) 3 ml IVFLUSH QSHIFT [facility] Last Admin: 05/17/24 08:31 Dose: 3 ml Documented By: FRANTZ Tamsulosin HCl (Tamsulosin Hcl 0.4 Mg Capsule) 0.4 mg PO BID [facility] Last Admin: 05/17/24 08:31 Dose: 0.4 mg Documented By: FRANTZ Labs 05/17/24 06:27 05/17/24 06:27 Labs: Laboratory Results - last 24 hr 05/16/24 05/16/24 05/16/24 10:45 16:26 20:12 MCV MCH MCHC RDW Plt Count MPV Absolute Nucleated RBC Nucleated RBC % (auto) Anion Gap Estim Creat Clear Calc Estimated GFR POC Glucose 278 H 213 H 208 H Random Glucose Calcium Magnesium Procalcitonin 05/17/24 05/17/24 06:27 07:52 MCV 89.3 MCH 29.8 MCHC 33.3 RDW 13.4 Plt Count 318 MPV 9.6 Absolute Nucleated RBC 0.000 Nucleated RBC % (auto) 0.0 Anion Gap 13 Estim Creat Clear Calc 82.4 Estimated GFR > 60 POC Glucose 161 H Random Glucose 176 H Calcium 9.2 Magnesium 2.3 Procalcitonin 0.15 Microbiology Microbiology Results: Microbiology 05/15/24 06:27 Blood Culture - Preliminary Blood - Venous No growth after 48 hours. 05/15/24 06:20 Blood Culture - Preliminary Blood - Venous No growth after 48 hours. 05/15/24 19:23 Gram Stain - Final Sputum - Expectorated Sputum Culture - Final Assessment and Plan (1) Pneumonia: Status: Acute (2) COPD (chronic obstructive pulmonary disease): Status: Acute Plan d3 78yo M with COPD not on home O2, MISTY on CPAP, asthma, HTN, NIDDM, CAD, HLD; currently undergoing treatment for osteomyelitis of L great toe with daptomycin presenting with 3d of dyspnea + productive cough admitted for hypoxia due to PNA + COPD/asthma exac PNA - ceftriaxone/doxycycline 05/15-, BCx negative, PCT low, urinary antigens for Legionella and pneumococcus pending, check resp pathogen panel + MRSA swab COPD/asthma exac - continue methylprednisolone, add standing to prn nebs, home inhalers [change Bretzri to Breo] AHRF - wean O2 as tolerated, treat inciting causes as above osteomyelitis L great toe - continue daptomycin, end date 06/09/24 hypoK - repleted HTN - held amlodipine + hydralazine + chlorthalidone for soft BP; now hypertensive; resume amlodipine today CAD - ASA, hold statin while on daptomycin DM2 with steroid-induced hyperglycemia - hold OHGs, give clarence-dose lispro BPH - continue tamsulosin + finasteride MISTY - CPAP at night VTE ppx - enoxaparin dispo - to resume VNA services upon d/c In my clinical judgment, the patient requires continued inpatient hospitalization for the following reasons: IV ABX + hypoxia Total time managing care of this patient today: 40 minutes. Quality Stroke Does the patient have a stroke diagnosis?: No VTE Prior VTE?: No VTE Risk Level:: Medical - moderate - high VTE Device Contraindication: N/A - Device Ordered VTE Drug Contraindication: N/A - Med Ordered
[2024-05-17] MEDS: Fluticasone/Vilanterol 200/25 BLST.W.DEV 1 PUFF INHALE (10:44)
[2024-05-17] MEDS: Doxycycline Hyclate 100 MG in 0.9 % Sodium Chloride 250 ML 166 MG IV ×2 (10:45→22:54)
[2024-05-17] MEDS: amLODIPine Besylate 10 MG TABLET PO (10:45)
[2024-05-17] MEDS: Enoxaparin Sodium 40 MG/0.4 ML SYRINGE SUBCUT (10:45)
[2024-05-17] MEDS: Albuterol/Iprat 2.5/0.5MG 3 ML AMPUL.NEB INHALE ×3 (11:12→18:31)
[2024-05-17 11:48] LABS: Glucose, Whole Blood 266 mg/dL (60-115)
[2024-05-17 12:32] LABS: MRSA Nasal PCR NEGATIVE (Negative); SA Nasal PCR NEGATIVE (Negative)
[2024-05-17 13:27] LABS: Adenovirus PCR Not Detected (Not Detect.); Bordetella parapertussis PCR Not Detected (Not Detect.); Bordetella pertussis PCR Not Detected (Not Detect.); Chlamydia pneumoniae PCR Not Detected (Not Detect.); Coronavirus 229E PCR Not Detected (Not Detect.); Coronavirus HKU1 PCR Not Detected (Not Detect.); Coronavirus NL63 PCR Not Detected (Not Detect.); Coronavirus OC43 PCR Not Detected (Not Detect.); Human metapneumovirus PCR Not Detected (Not Detect.); Influenza A PCR Not Detected (Not Detect.); Influenza B PCR Not Detected (Not Detect.); Mycoplasma pneumoniae PCR Not Detected (Not Detect.); Parainfluenza 1 PCR Not Detected (Not Detect.); Parainfluenza 2 PCR Not Detected (Not Detect.); Parainfluenza 3 PCR Not Detected (Not Detect.); Parainfluenza 4 PCR Not Detected (Not Detect.); RSV PCR Not Detected (Not Detect.); Rhino/Enterovirus PCR Not Detected (Not Detect.); SARS-CoV-2 PCR Not Detected (Not Detect.)
[2024-05-17] MEDS: DAPTOmycin 500 MG in 0.9 % Sodium Chloride 50 ML 100 MG IV (15:23)
--- NOTE | 2024-05-17 16:00 | PC.NURSE ---
Contact provider Dr. Bose via [employer] at 15:37 for clarification with PICC line. Provider stated ok to use PICC line for IV medications.
[2024-05-17 16:15] LABS: Glucose, Whole Blood 251 mg/dL (60-115)
[2024-05-17] MEDS: 0.9 % Sodium Chloride Flush 10 ML SYRINGE 5 ML IVFLUSH ×2 (16:38→21:28)
[2024-05-17 20:44] LABS: Glucose, Whole Blood 320 mg/dL (60-115)
[2024-05-17] MEDS: Latanoprost 0.005 % Ophth Sol 2.5 ML DROPS 1 DROP EYE-BOTH (21:27)
[2024-05-18] VITALS (12 sets, daily range): BP systolic 140–185; BP diastolic 61–98; PULSE 79–113; RESP 17–20; TEMP 36.4–36.9; O2SAT 88–94
[2024-05-18] MEDS: 0.9 % Sodium Chloride Flush 3 ML SYRINGE IVFLUSH
[2024-05-18] MEDS: methylPREDNISolone Sod Succ 40 MG/ML VIAL IVPUSH ×3 (06:03→21:39)
[2024-05-18 07:40] LABS: Glucose, Whole Blood 217 mg/dL (60-115)
[2024-05-18] MEDS: Albuterol/Iprat 2.5/0.5MG 3 ML AMPUL.NEB INHALE ×4 (08:03→20:31)
[2024-05-18] MEDS: Fluticasone/Vilanterol 200/25 BLST.W.DEV 1 PUFF INHALE (08:04)
[2024-05-18] MEDS: Insulin Lispro 100 UNIT/ML 3 ML VIAL SUBCUT ×4 (08:22→21:39)
[2024-05-18] MEDS: amLODIPine Besylate 10 MG TABLET PO (08:23)
[2024-05-18] MEDS: Aspirin Enteric Coated 81 MG TABLET.DR PO (08:24)
[2024-05-18] MEDS: Finasteride 5 MG TABLET PO (08:24)
[2024-05-18] MEDS: Tamsulosin HCL 0.4 MG CAPSULE PO ×2 (08:24→21:38)
[2024-05-18] MEDS: 0.9 % Sodium Chloride Flush 10 ML SYRINGE 5 ML IVFLUSH ×3 (08:25→21:40)
[2024-05-18] MEDS: cefTRIAXone sodium 1 GM in 0.9 % Sodium Chloride 50 ML IV (08:25)
--- NOTE | 2024-05-18 10:39 | HO.PM.IMPN ---
Subjective Subjective Date of Service: 05/18/24 Interval History: feeling worse; more short of breath; coughing a small amount of blood-tinged sputum Review of Systems Review of Systems: Yes all other systems are reviewed and are negative Physical Exam Vital Signs: Vital Signs: Last Vital Signs Temp 98.5 F 05/18/24 08:00 Pulse 106 H 05/18/24 08:06 Resp 20 05/18/24 08:06 BP 140/98 H 05/18/24 08:23 Pulse Ox 88 L 05/18/24 08:00 O2 Del Method Nasal Cannula 05/18/24 08:00 O2 Flow Rate 3 05/18/24 08:00 BMI result Body Mass Index 31.9 Gen: short of breath HEENT: sclera anicteric, moist mucus membranes Neck: supple Lungs: diminished bilaterally Heart: tachycardic, no murmurs Abd: soft, non-tender, non-distended Ext: no edema, LUE PICC without infection Skin: warm/well-perfused, L great toe with lateral dry eschar without erythema or swelling Neuro: alert and oriented x3, no focal findings Psych: appropriate affect Objective Data Active Medications Acetaminophen (Acetaminophen 325 Mg Tablet) 650 mg PO Q6H PRN PRN Reason: Pain, Mild (Pain Scale 1-3), fever or headache Albuterol Sulfate (Albuterol Sulfate (0.083%) 2.5 Mg/3 Ml Vial.Neb) 2.5 mg INHALE Q2H PRN PRN Reason: Shortness of Breath/Wheezing Albuterol/Ipratropium (Albuterol/Iprat 2.5/0.5mg 3 Ml Ampul.Neb) 3 ml INHALE RQ4H WHILE AWAKE [facility] Last Admin: 05/18/24 08:03 Dose: 3 ml Documented By: SANCHEZ Amlodipine Besylate (Amlodipine Besylate 10 Mg Tablet) 10 mg PO DAILY [facility]; Protocol Last Admin: 05/18/24 08:23 Dose: 10 mg Documented By: JACINTO Aspirin (Aspirin Enteric Coated 81 Mg Tablet.Dr) 81 mg PO DAILY [facility] Last Admin: 05/18/24 08:24 Dose: 81 mg Documented By: JACINTO Calcium Carbonate (Calcium Carbonate 750 Mg Tab.Chew) 750 mg PO Q4H PRN PRN Reason: Heartburn Enoxaparin Sodium (Enoxaparin Sodium 40 Mg/0.4 Ml Syringe) 40 mg SUBCUT Q24H [facility] Last Admin: 05/17/24 10:45 Dose: 40 mg Documented By: FRANTZ Finasteride (Finasteride 5 Mg Tablet) 5 mg PO DAILY [facility] Last Admin: 05/18/24 08:24 Dose: 5 mg Documented By: JACINTO Fluticasone/Vilanterol (Fluticasone/Vilanterol 200/25 Blst.W.Dev) 1 puff INHALE RDAILY [facility] Last Admin: 05/18/24 08:04 Dose: 1 puff Documented By: SANCHEZ Glucose (Glucose Gel 15 Gm Gel..Gram.) 15 gm PO Q15M PRN; Protocol PRN Reason: per Hypoglycemia Standing Ord. Dextrose (D10) 250 mls @ 750 mls/hr IV Q15M PRN; Protocol PRN Reason: per Hypoglycemia Standing Ord. Daptomycin 500 mg/ Sodium (Chloride) 60 mls @ 100 mls/hr IV Q24H [facility] Last Infusion: 05/17/24 16:00 Dose: Infused Documented By: FRANTZ Levofloxacin (Levaquin) 750 mg in 150 mls @ 100 mls/hr IV Q24H [facility] Insulin Human Lispro (Insulin Lispro 100 Unit/Ml 3 Ml Vial) 0 unit SUBCUT QIDACHS [facility]; Protocol Last Admin: 05/18/24 08:22 Dose: 6 unit Documented By: JACINTO Latanoprost (Latanoprost 0.005 % Ophth Rosa 2.5 Ml Drops) 1 drop EYE-BOTH BEDTIME [facility] Last Admin: 05/17/24 21:27 Dose: 1 drop Documented By: RICHMOND Magnesium Hydroxide (Milk Of Magnesia 30 Ml Oral.Susp) 30 ml PO DAILY PRN PRN Reason: Constipation Melatonin (Melatonin 3 Mg Tablet) 6 mg PO BEDTIME PRN PRN Reason: Insomnia Methylprednisolone Sodium Succinate (Methylprednisolone Sod Succ 40 Mg/Ml Vial) 40 mg IVPUSH Q8H [facility] Non-Formulary Medication (Brinzolamide-Brimonidine [Simbrinza]) 1 drop EYE-BOTH BID [facility] Non-Formulary Medication (Qcnrefkszh-Mmmbrcvn-Jptepvckwt [Breztri Aerosphere]) 2 inhalation INHALE BID [facility] Sodium Chloride (0.9 % Sodium Chloride Flush 3 Ml Syringe) 3 ml IVFLUSH QSHIFT [facility] Last Admin: 05/18/24 08:29 Dose: Not Given Documented By: JACINTO Non-Admin Reason: pt has picc line Sodium Chloride (0.9 % Sodium Chloride Flush 10 Ml Syringe) 5 ml IVFLUSH TID [facility] Last Admin: 05/18/24 08:25 Dose: 5 ml Documented By: JACINTO Tamsulosin HCl (Tamsulosin Hcl 0.4 Mg Capsule) 0.4 mg PO BID [facility] Last Admin: 05/18/24 08:24 Dose: 0.4 mg Documented By: JACINTO Labs 05/17/24 06:27 05/17/24 06:27 Labs: Laboratory Results - last 24 hr 05/17/24 05/17/24 05/17/24 10:56 11:25 11:40 POC Glucose 266 H Nasal Screen MRSA (PCR) NEGATIVE Nasal S. aureus Screen NEGATIVE Nasal MRSA/S.aureus Interp SEE NOTE Respiratory Panel Vann See Note Adenovirus (Rapid PCR) Not Detected B.pert (TEM-PCR) Not Detected B.parapertussis DNA PCR Not Detected C. pneumoniae DNA (PCR) Not Detected Coronavirus OC43 (PCR) Not Detected Coronavirus HKU1 (PCR) Not Detected Coronavirus 229E (PCR) Not Detected Coronavirus NL63 (PCR) Not Detected Human Metapneumovir PCR Not Detected Influenza A (RT-PCR) Not Detected Influenza B (RT-PCR) Not Detected M. pneumoniae (PCR) Not Detected Parainfluenza 1 (PCR) Not Detected Parainfluenza 2 (PCR) Not Detected Parainfluenza 3 (PCR) Not Detected Parainfluenza 4 (PCR) Not Detected RSV (PCR) Not Detected Entero/Rhino (PCR) Not Detected SARS-CoV-2 RNA (RT-PCR) Not Detected 05/17/24 05/17/24 05/18/24 16:11 20:36 07:32 POC Glucose 251 H 320 H 217 H Nasal Screen MRSA (PCR) Nasal S. aureus Screen Nasal MRSA/S.aureus Interp Respiratory Panel Vann Adenovirus (Rapid PCR) B.pert (TEM-PCR) B.parapertussis DNA PCR C. pneumoniae DNA (PCR) Coronavirus OC43 (PCR) Coronavirus HKU1 (PCR) Coronavirus 229E (PCR) Coronavirus NL63 (PCR) Human Metapneumovir PCR Influenza A (RT-PCR) Influenza B (RT-PCR) M. pneumoniae (PCR) Parainfluenza 1 (PCR) Parainfluenza 2 (PCR) Parainfluenza 3 (PCR) Parainfluenza 4 (PCR) RSV (PCR) Entero/Rhino (PCR) SARS-CoV-2 RNA (RT-PCR) Microbiology Microbiology Results: Microbiology 05/15/24 06:27 Blood Culture - Preliminary Blood - Venous No growth after 48 hours. 05/15/24 06:20 Blood Culture - Preliminary Blood - Venous No growth after 48 hours. Assessment and Plan (1) Pneumonia: Status: Acute (2) COPD (chronic obstructive pulmonary disease): Status: Acute Plan d4 78yo M with COPD not on home O2, MISTY on CPAP, asthma, HTN, NIDDM, CAD, HLD; currently undergoing treatment for osteomyelitis of L great toe with daptomycin presenting with 3d of dyspnea + productive cough admitted for hypoxia due to PNA + COPD/asthma exac PNA minor hemoptysis - ceftriaxone/doxycycline 05/15-05/18, switch to levofloxacin 05/18-, BCx negative, PCT low, urinary antigens for Legionella and pneumococcus pending, respiratory pathogen PCR panel negative, MRSA swab negative - will obtain CT angio to r/o PE and also consult Pulmonology COPD/asthma exac - continue methylprednisolone but increase from 40 mg q24h to q8h, standing/prn nebs, home inhalers [change Bretzri to Breo] AHRF - wean O2 as tolerated osteomyelitis L great toe - continue daptomycin via PICC, end date 06/09/24 hypoK - repleted HTN - held amlodipine + hydralazine + chlorthalidone for soft BP; now hypertensive; resumed amlodipine yesterday, resume hydralazine today CAD - ASA, hold statin while on daptomycin DM2 with steroid-induced hyperglycemia - hold OHGs, give clarence-dose lispro BPH - continue tamsulosin + finasteride MISTY - CPAP at night VTE ppx - hold enoxaparin given hemoptysis, continue SCDs dispo - to resume VNA services upon d/c In my clinical judgment, the patient requires continued inpatient hospitalization for the following reasons: IV ABX + hypoxia Total time managing care of this patient today: 45 minutes. Quality Stroke Does the patient have a stroke diagnosis?: No VTE Prior VTE?: No VTE Risk Level:: Medical - moderate - high VTE Device Contraindication: N/A - Device Ordered VTE Drug Contraindication: N/A - Med Ordered
[2024-05-18 11:20] LABS: Strep Pneumo Ag urine Not Detected (Not Detected)
[2024-05-18 11:25] LABS: Glucose, Whole Blood 289 mg/dL (60-115)
[2024-05-18] MEDS: iohexoL 350 MG/ML 100 ML INFUS..BTL IV (12:20)
[2024-05-18] MEDS: Furosemide 20 MG/2 ML VIAL IVPUSH (13:57)
[2024-05-18] MEDS: hydrALAZINE HCl 50 MG TABLET PO (13:59)
[2024-05-18] MEDS: levoFLOXacin/D5W 750 MG/150 ML PIGGYBACK 100 MG IV (13:59)
[2024-05-18 16:23] LABS: Glucose, Whole Blood 301 mg/dL (60-115)
[2024-05-18] MEDS: DAPTOmycin 500 MG in 0.9 % Sodium Chloride 50 ML 100 MG IV (18:09)
[2024-05-18 20:25] LABS: Glucose, Whole Blood 219 mg/dL (60-115)
[2024-05-18] MEDS: Latanoprost 0.005 % Ophth Sol 2.5 ML DROPS 1 DROP EYE-BOTH (21:44)
[2024-05-19] VITALS (12 sets, daily range): BP systolic 118–173; BP diastolic 65–95; PULSE 63–92; RESP 16–20; TEMP 36.1–36.7; O2SAT 89–102
[2024-05-19] MEDS: 0.9 % Sodium Chloride Flush 3 ML SYRINGE IVFLUSH ×2 (00:21→20:26)
[2024-05-19] MEDS: methylPREDNISolone Sod Succ 40 MG/ML VIAL IVPUSH ×3 (05:12→23:09)
[2024-05-19 06:20] LABS: Hematocrit 39.2 % (42.0-52.0); Hemoglobin 13.1 g/dl (14.0-18.0); Mean Corpuscular HGB Conc 33.4 g/dl (31.0-36.0); Mean Corpuscular Hemoglobin 29.8 pg (27.0-33.0); Mean Corpuscular Volume 89.3 fL (80.0-98.0); Mean Platelet Volume 8.9 fL (9.4-12.4); Platelet Count 331 X10*3/uL (160-400); Red Blood Count 4.39 X10*6/uL (4.60-5.80); Red Cell Distribution Width 13.7 % (11.0-16.0); White Blood Count 21.8 X10*3/uL (4.8-10.8)
[2024-05-19 06:38] LABS: B Type Natriuretic Peptide 114 pg/mL (<100)
[2024-05-19 07:12] LABS: Procalcitonin 0.06 ng/mL
[2024-05-19] MEDS: Albuterol/Iprat 2.5/0.5MG 3 ML AMPUL.NEB INHALE ×4 (07:35→20:46)
[2024-05-19] MEDS: Fluticasone/Vilanterol 200/25 BLST.W.DEV 1 PUFF INHALE (07:35)
[2024-05-19 07:43] LABS: Glucose, Whole Blood 270 mg/dL (60-115)
[2024-05-19] MEDS: Insulin Lispro 100 UNIT/ML 3 ML VIAL SUBCUT ×4 (07:58→20:19)
[2024-05-19] MEDS: amLODIPine Besylate 10 MG TABLET PO (07:59)
[2024-05-19] MEDS: Aspirin Enteric Coated 81 MG TABLET.DR PO (07:59)
[2024-05-19] MEDS: Tamsulosin HCL 0.4 MG CAPSULE PO ×2 (07:59→20:18)
[2024-05-19] MEDS: hydrALAZINE HCl 50 MG TABLET PO (07:59)
[2024-05-19] MEDS: Finasteride 5 MG TABLET PO (07:59)
[2024-05-19] MEDS: 0.9 % Sodium Chloride Flush 10 ML SYRINGE 5 ML IVFLUSH ×3 (08:10→23:09)
[2024-05-19 10:57] LABS: Glucose, Whole Blood 322 mg/dL (60-115)
[2024-05-19] MEDS: levoFLOXacin/D5W 750 MG/150 ML PIGGYBACK 100 MG IV (11:33)
--- NOTE | 2024-05-19 12:33 | PM.CNPUL ---
History of Present Illness History of Present Illness Consult date: 05/19/24 Chief complaint: COPD/PNA Narrative: 78-year-old gentleman, former 40+ pack-year smoker, quit 30 years prior with underlying history of COPD, MISTY on CPAP, follows with [facility] pulmonary admitted on 05/15/2024 with dyspnea and hypoxia secondary to bilateral multifocal pneumonia treated with empiric antibiotics, now requiring 3 L of supplemental oxygen, but states that subjectively he is improving. Review of Systems Constitutional: Constitutional: Denies daytime sleepiness, Denies excessive sweating, Denies fatigue, Denies fever(s), Denies lethargy, Denies malaise, Denies night sweats, Denies snoring and Denies weight loss Eyes: Eyes: Denies blurry vision and Denies itchy eyes ENT: Denies nasal congestion, Denies post nasal drip, Denies sinus pain, Denies sinus pressure and Denies other ( Thrush) Cardiovascular: Cardiovascular: Denies chest pain, Denies pedal edema, Reports dyspnea, Denies orthopnea and Denies paroxysmal nocturnal dyspnea Respiratory: Respiratory: Reports cough, Denies hemoptysis, Reports excessive phlegm production, Reports dyspnea, Denies snoring and Denies wheezing Gastrointestinal: Gastrointestinal: Denies abdominal pain and Denies heartburn Musculoskeletal: Musculoskeletal: Denies myalgias, Denies arthralgias and Denies joint swelling Integumentary/Breasts: Skin/Breast: Denies rash Neurologic: Denies memory loss and Denies seizure-like activity Psychiatric: Psychiatric: Denies abnormal sleep pattern, Denies anxiety and Denies memory loss Endocrine: Endocrine: Denies excessive sweating, Denies fatigue and Denies heat intolerance Hematologic/Lymphatic: Hematologic/Lymphatic: Denies easy bruising Allergic/Immunologic: Allergic/Immunologic: Denies itchy eyes, Denies seasonal rhinorrhea and Denies wheezing PMFSH Past Medical History Medical History (Updated 05/19/24 @ 12:37 by Presley Mendenhall MD) Hypokalemia COVID Benign prostatic hyperplasia with urinary obstruction MISTY on CPAP Bifascicular block Atherosclerotic cardiovascular disease COPD (chronic obstructive pulmonary disease) Carotid stenosis Hypertension Diabetes Hypercholesteremia Family History Family History Father CVD (cardiovascular disease) Mother No problems noted. Sister Cancer Sister Cancer Surgical History Surgical History H/O colonoscopy Hx of elbow surgery History of eyelid surgery S/P TURP (status post transurethral resection of prostate) (~2019) Status post carotid surgery Hx of cataract Social History Social History Household Members: None Housing: House Do you presently have visiting nurse or other home services: Yes Alcohol intake: current Alcohol intake frequency: a few times a week Comment: pt. is ambulatory, steady on foot. Patient Tobacco Use Status: Former Tobacco user e-Cigarette/Vaping Use: Never Used Second Hand Smoke Exposure: No Substance Use Type: Prescription Drugs Advance Directives Date on File: 04/27/24 service: No Current occupational status: retired Current occupational exposures/hazards: No Cognitive needs: No Hearing needs: No Vision needs: No Travel History Ebola Risk: Travel/Contact With Anyone From Affected Area/s: No Meds Allergies Allergy/AdvReac Type Severity Reaction Status Date / Time SADI Inhibitors Allergy Unknown FACIAL Verified 05/15/24 06:02 [SADI INHIBITORS] SWELLING lisinopril [LISINOPRIL] Allergy Unknown FACIAL Verified 05/15/24 06:02 SWELLING, hives, lip edema oxycodone [From PERCOCET] Allergy Unknown JOINT Verified 05/15/24 06:02 STIFFNESS peanut [PEANUTS] Allergy Unknown SWELLING,TH Verified 05/15/24 06:02 ROAT,HIVES Active Medications: Current Medications Acetaminophen (Acetaminophen 325 Mg Tablet) 650 mg PO Q6H PRN PRN Reason: Pain, Mild (Pain Scale 1-3), fever or headache Albuterol Sulfate (Albuterol Sulfate (0.083%) 2.5 Mg/3 Ml Vial.Neb) 2.5 mg INHALE Q2H PRN PRN Reason: Shortness of Breath/Wheezing Albuterol/Ipratropium (Albuterol/Iprat 2.5/0.5mg 3 Ml Ampul.Neb) 3 ml INHALE RQ4H WHILE AWAKE [facility] Last Admin: 05/19/24 11:30 Dose: 3 ml Amlodipine Besylate (Amlodipine Besylate 10 Mg Tablet) 10 mg PO DAILY [facility]; Protocol Last Admin: 05/19/24 07:59 Dose: 10 mg Aspirin (Aspirin Enteric Coated 81 Mg Tablet.Dr) 81 mg PO DAILY [facility] Last Admin: 05/19/24 07:59 Dose: 81 mg Calcium Carbonate (Calcium Carbonate 750 Mg Tab.Chew) 750 mg PO Q4H PRN PRN Reason: Heartburn Enoxaparin Sodium (Enoxaparin Sodium 40 Mg/0.4 Ml Syringe) 40 mg SUBCUT Q24H [facility] Last Admin: 05/18/24 12:02 Dose: Not Given Finasteride (Finasteride 5 Mg Tablet) 5 mg PO DAILY [facility] Last Admin: 05/19/24 07:59 Dose: 5 mg Fluticasone/Vilanterol (Fluticasone/Vilanterol 200/25 Blst.W.Dev) 1 puff INHALE RDAILY [facility] Last Admin: 05/19/24 07:35 Dose: 1 puff Glucose (Glucose Gel 15 Gm Gel..Gram.) 15 gm PO Q15M PRN; Protocol PRN Reason: per Hypoglycemia Standing Ord. Hydralazine HCl (Hydralazine Hcl 50 Mg Tablet) 50 mg PO DAILY [facility]; Protocol Last Admin: 05/19/24 07:59 Dose: 50 mg Dextrose (D10) 250 mls @ 750 mls/hr IV Q15M PRN; Protocol PRN Reason: per Hypoglycemia Standing Ord. Daptomycin 500 mg/ Sodium (Chloride) 60 mls @ 100 mls/hr IV Q24H [facility] Last Infusion: 05/18/24 19:48 Dose: Infused Levofloxacin (Levaquin) 750 mg in 150 mls @ 100 mls/hr IV Q24H [facility] Last Admin: 05/19/24 11:33 Dose: 100 mls/hr Insulin Human Lispro (Insulin Lispro 100 Unit/Ml 3 Ml Vial) 0 unit SUBCUT QIDACHS [facility]; Protocol Last Admin: 05/19/24 11:49 Dose: 10 unit Latanoprost (Latanoprost 0.005 % Ophth Rosa 2.5 Ml Drops) 1 drop EYE-BOTH BEDTIME [facility] Last Admin: 05/18/24 21:44 Dose: 1 drop Magnesium Hydroxide (Milk Of Magnesia 30 Ml Oral.Susp) 30 ml PO DAILY PRN PRN Reason: Constipation Melatonin (Melatonin 3 Mg Tablet) 6 mg PO BEDTIME PRN PRN Reason: Insomnia Methylprednisolone Sodium Succinate (Methylprednisolone Sod Succ 40 Mg/Ml Vial) 40 mg IVPUSH Q8H [facility] Last Admin: 05/19/24 05:12 Dose: 40 mg Non-Formulary Medication (Brinzolamide-Brimonidine [Simbrinza]) 1 drop EYE-BOTH BID [facility] Non-Formulary Medication (Ambyuqivsz-Kxdzqdwv-Ezpqhwkckf [Breztri Aerosphere]) 2 inhalation INHALE BID [facility] Sodium Chloride (0.9 % Sodium Chloride Flush 3 Ml Syringe) 3 ml IVFLUSH QSHIFT [facility] Last Admin: 05/19/24 08:10 Dose: Not Given Sodium Chloride (0.9 % Sodium Chloride Flush 10 Ml Syringe) 5 ml IVFLUSH TID [facility] Last Admin: 05/19/24 08:10 Dose: 5 ml Tamsulosin HCl (Tamsulosin Hcl 0.4 Mg Capsule) 0.4 mg PO BID [facility] Last Admin: 05/19/24 07:59 Dose: 0.4 mg Home Medications ?Medication ?Instructions ?Recorded ?Confirmed ?Last Taken ?Type tamsulosin 0.4 mg capsule 0.4 mg PO BID 07/01/20 05/15/24 05/15/24 History aspirin 81 mg tablet,delayed 81 mg PO DAILY 08/03/20 05/15/24 05/15/24 History release finasteride 5 mg tablet 5 mg PO DAILY 02/04/24 05/15/24 05/15/24 History albuterol sulfate 90 mcg/actuation 2 puff inhalation Q4H PRN wheezing 04/28/24 05/15/24 Unknown History aerosol inhaler brinzolamide 1 %-brimonidine 0.2 % 1 drp ophthalmic (eye) BID 04/28/24 05/15/24 05/15/24 History eye drops,suspension (Simbrinza) budesonide 160 mcg-glycopyr 9 2 inh inhalation BID 04/28/24 05/15/24 05/15/24 History mcg-formot 4.8 mcg/actuation HFA inhaler (Breztri Aerosphere) chlorthalidone 50 mg tablet 50 mg PO DAILY 04/28/24 05/15/24 05/15/24 History hydralazine 50 mg tablet 50 mg PO DAILY 04/28/24 05/15/24 05/15/24 History latanoprost 0.005 % eye drops 1 drp ophthalmic (eye) BEDTIME 04/28/24 05/15/24 05/15/24 History daptomycin 500 mg intravenous 500 mg IV Q24H 05/13/24 05/15/24 05/14/24 History solution Physical Exam Vital Signs: Vital Signs: Last Vital Signs Temp 98.0 F 05/19/24 10:52 Pulse 84 05/19/24 11:32 Resp 18 05/19/24 11:32 BP 159/69 H 05/19/24 10:52 Pulse Ox 90 L 05/19/24 10:52 O2 Del Method Nasal Cannula 05/19/24 10:52 O2 Flow Rate 3 05/19/24 10:52 BMI result Body Mass Index 31.9 Const: General: no acute distress and alert Nutritional Appearance: not obese Orientation/consciousness: Other orientation findings ( oriented) HEENT: Head: Yes atraumatic Eyes: General: appearance normal, both eyes and all related structures Sclerae: sclerae normal EOM: EOMs intact bilaterally Neck: Neck: Yes supple Lymphatic: no lymphadenopathy noted Resp: Effort & Inspection: normal respiratory effort and no use of accessory muscles Auscultation: rales (Bilateral) Cardio: Rate: regular rate Rhythm: regular rhythm Heart sounds: no gallops, no murmurs and no rubs Skin: General skin exam: other ( warm) Extrem: General: No clubbing, No cyanosis and No edema Results Laboratory Findings 05/19/24 05:51 05/17/24 06:27 Abnormal lab findings: Abnormal Labs 05/15/24 05/15/24 05/15/24 06:10 11:49 18:06 WBC 17.9 H RBC 4.50 L Hgb 13.4 L Hct 39.0 L MPV 9.0 L Immature Gran % (Auto) 0.7 H Neut % (Auto) 73.5 H Lymph % (Auto) 10.0 L Eos % (Auto) 6.0 H [place] # (Auto) 1.7 H Eos # (Auto) 1.1 H Abs Immat Gran (auto) 0.12 H Absolute Neuts (auto) 13.1 H Sodium 133 L Potassium 3.1 L Chloride 93 L Carbon Dioxide BUN 18 H POC Glucose 225 H 232 H Random Glucose 192 H B-Natriuretic Peptide 05/15/24 05/16/24 05/16/24 21:05 00:46 03:59 WBC 18.7 H RBC 4.53 L Hgb 13.7 L Hct 39.6 L MPV 9.0 L Immature Gran % (Auto) Neut % (Auto) Lymph % (Auto) Eos % (Auto) [place] # (Auto) Eos # (Auto) Abs Immat Gran (auto) Absolute Neuts (auto) Sodium Potassium Chloride Carbon Dioxide 30 H BUN 27 H POC Glucose 259 H 259 H Random Glucose 241 H B-Natriuretic Peptide 05/16/24 05/16/24 05/16/24 05:59 06:59 10:45 WBC RBC Hgb Hct MPV Immature Gran % (Auto) Neut % (Auto) Lymph % (Auto) Eos % (Auto) [place] # (Auto) Eos # (Auto) Abs Immat Gran (auto) Absolute Neuts (auto) Sodium Potassium Chloride Carbon Dioxide BUN POC Glucose 204 H 207 H 278 H Random Glucose B-Natriuretic Peptide 05/16/24 05/16/24 05/17/24 16:26 20:12 06:27 WBC 22.5 H RBC 4.50 L Hgb 13.4 L Hct 40.2 L MPV Immature Gran % (Auto) Neut % (Auto) Lymph % (Auto) Eos % (Auto) [place] # (Auto) Eos # (Auto) Abs Immat Gran (auto) Absolute Neuts (auto) Sodium Potassium Chloride Carbon Dioxide 30 H BUN 27 H POC Glucose 213 H 208 H Random Glucose 176 H B-Natriuretic Peptide 05/17/24 05/17/24 05/17/24 07:52 11:40 16:11 WBC RBC Hgb Hct MPV Immature Gran % (Auto) Neut % (Auto) Lymph % (Auto) Eos % (Auto) [place] # (Auto) Eos # (Auto) Abs Immat Gran (auto) Absolute Neuts (auto) Sodium Potassium Chloride Carbon Dioxide BUN POC Glucose 161 H 266 H 251 H Random Glucose B-Natriuretic Peptide 05/17/24 05/18/24 05/18/24 20:36 07:32 11:19 WBC RBC Hgb Hct MPV Immature Gran % (Auto) Neut % (Auto) Lymph % (Auto) Eos % (Auto) [place] # (Auto) Eos # (Auto) Abs Immat Gran (auto) Absolute Neuts (auto) Sodium Potassium Chloride Carbon Dioxide BUN POC Glucose 320 H 217 H 289 H Random Glucose B-Natriuretic Peptide 05/18/24 05/18/24 05/19/24 16:19 20:19 05:51 WBC 21.8 H RBC 4.39 L Hgb 13.1 L Hct 39.2 L MPV 8.9 L Immature Gran % (Auto) Neut % (Auto) Lymph % (Auto) Eos % (Auto) [place] # (Auto) Eos # (Auto) Abs Immat Gran (auto) Absolute Neuts (auto) Sodium Potassium Chloride Carbon Dioxide BUN POC Glucose 301 H 219 H Random Glucose B-Natriuretic Peptide 114 H 05/19/24 05/19/24 07:32 10:54 WBC RBC Hgb Hct MPV Immature Gran % (Auto) Neut % (Auto) Lymph % (Auto) Eos % (Auto) [place] # (Auto) Eos # (Auto) Abs Immat Gran (auto) Absolute Neuts (auto) Sodium Potassium Chloride Carbon Dioxide BUN POC Glucose 270 H 322 H Random Glucose B-Natriuretic Peptide Microbiology: Microbiology 05/18/24 11:40 Sputum - Expectorated Gram Stain - Final 05/18/24 11:40 Sputum - Expectorated Sputum Culture - Final 05/15/24 06:27 Blood - Venous Blood Culture - Preliminary No growth after 48 hours. 05/15/24 06:20 Blood - Venous Blood Culture - Preliminary No growth after 48 hours. 05/15/24 19:23 Sputum - Expectorated Gram Stain - Final 05/15/24 19:23 Sputum - Expectorated Sputum Culture - Final Assessment and Plan (1) COPD (chronic obstructive pulmonary disease): Qualifiers: COPD type: COPD with acute lower respiratory infection Qualified Code(s): J44.0 - Chronic obstructive pulmonary disease with (acute) lower respiratory infection Status: Acute (2) Pneumonia: Qualifiers: Pneumonia type: due to unspecified organism Laterality: bilateral Status: Acute (3) Acute respiratory failure with hypoxia: Status: Acute Plan Impression: 78-year-old gentleman with underlying advanced COPD and MISTY on CPAP admitted with acute hypoxic respiratory failure secondary to bilateral multifocal pneumonia requiring supplemental oxygen, improving slowly on empiric antibiotic therapy. Results and images of CT scan of the chest reviewed and demonstrate bilateral multifocal pneumonia. Recommendations: Agree with current therapeutic regimen of empiric antibiotics, systemic glucocorticoids, and nebulized bronchodilators. Continue to titrate off supplemental oxygen as tolerated. Procedures Date of Service Date of Service: 05/19/24
[2024-05-19] MEDS: DAPTOmycin 500 MG in 0.9 % Sodium Chloride 50 ML 100 MG IV (15:41)
[2024-05-19 16:16] LABS: Glucose, Whole Blood 286 mg/dL (60-115)
--- NOTE | 2024-05-19 16:20 | MHC.CM.PN ---
EMR reviewed and per MD rounds, pt is not medically cleared for discharge due to management of pneumonia/hypoxia/COPD.
--- NOTE | 2024-05-19 17:14 | P.PNIM_ITS ---
Subjective Subjective Date of Service: 05/19/24 Interval History: Slowly improving. 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 Cardio: Other: No S4; positive S1-S2; no S3 murmurs rubs and gallops GI: Other: Soft nontender nondistended normoactive bowel sounds Extrem: Other: No edema bilaterally Objective Data Active Medications Acetaminophen (Acetaminophen 325 Mg Tablet) 650 mg PO Q6H PRN PRN Reason: Pain, Mild (Pain Scale 1-3), fever or headache Albuterol Sulfate (Albuterol Sulfate (0.083%) 2.5 Mg/3 Ml Vial.Neb) 2.5 mg INHALE Q2H PRN PRN Reason: Shortness of Breath/Wheezing Albuterol/Ipratropium (Albuterol/Iprat 2.5/0.5mg 3 Ml Ampul.Neb) 3 ml INHALE RQ4H WHILE AWAKE [facility] Last Admin: 05/19/24 15:21 Dose: 3 ml Documented By: RADHA Amlodipine Besylate (Amlodipine Besylate 10 Mg Tablet) 10 mg PO DAILY [facility]; Protocol Last Admin: 05/19/24 07:59 Dose: 10 mg Documented By: JAYMIE Aspirin (Aspirin Enteric Coated 81 Mg Tablet.) 81 mg PO DAILY [facility] Last Admin: 05/19/24 07:59 Dose: 81 mg Documented By: JAYMIE Calcium Carbonate (Calcium Carbonate 750 Mg Tab.Chew) 750 mg PO Q4H PRN PRN Reason: Heartburn Enoxaparin Sodium (Enoxaparin Sodium 40 Mg/0.4 Ml Syringe) 40 mg SUBCUT Q24H [facility] Last Admin: 05/18/24 12:02 Dose: Not Given Documented By: JACINTO Non-Admin Reason: Physician Held Med Finasteride (Finasteride 5 Mg Tablet) 5 mg PO DAILY [facility] Last Admin: 05/19/24 07:59 Dose: 5 mg Documented By: JAYMIE Fluticasone/Vilanterol (Fluticasone/Vilanterol 200/25 Blst.W.Dev) 1 puff INHALE RDAILY [facility] Last Admin: 05/19/24 07:35 Dose: 1 puff Documented By: SANCHEZ Glucose (Glucose Gel 15 Gm Gel..Gram.) 15 gm PO Q15M PRN; Protocol PRN Reason: per Hypoglycemia Standing Ord. Hydralazine HCl (Hydralazine Hcl 50 Mg Tablet) 50 mg PO DAILY [facility]; Protocol Last Admin: 05/19/24 07:59 Dose: 50 mg Documented By: JAYMIE Dextrose (D10) 250 mls @ 750 mls/hr IV Q15M PRN; Protocol PRN Reason: per Hypoglycemia Standing Ord. Levofloxacin (Levaquin) 750 mg in 150 mls @ 100 mls/hr IV Q24H [facility] Last Infusion: 05/19/24 13:18 Dose: Infused Documented By: JAYMIE Insulin Human Lispro (Insulin Lispro 100 Unit/Ml 3 Ml Vial) 0 unit SUBCUT QIDACHS [facility]; Protocol Last Admin: 05/19/24 16:40 Dose: 8 unit Documented By: JAYMIE Latanoprost (Latanoprost 0.005 % Ophth Rosa 2.5 Ml Drops) 1 drop EYE-BOTH BEDTIME [facility] Last Admin: 05/18/24 21:44 Dose: 1 drop Documented By: RICHMOND Magnesium Hydroxide (Milk Of Magnesia 30 Ml Oral.Susp) 30 ml PO DAILY PRN PRN Reason: Constipation Melatonin (Melatonin 3 Mg Tablet) 6 mg PO BEDTIME PRN PRN Reason: Insomnia Methylprednisolone Sodium Succinate (Methylprednisolone Sod Succ 40 Mg/Ml Vial) 40 mg IVPUSH Q8H [facility] Last Admin: 05/19/24 15:10 Dose: 40 mg Documented By: JAYMIE Non-Formulary Medication (Brinzolamide-Brimonidine [Simbrinza]) 1 drop EYE-BOTH BID [facility] Non-Formulary Medication (Ejeefvdgjk-Xqtxidet-Rrblmupres [Breztri Aerosphere]) 2 inhalation INHALE BID [facility] Sodium Chloride (0.9 % Sodium Chloride Flush 3 Ml Syringe) 3 ml IVFLUSH QSHIFT [facility] Last Admin: 05/19/24 15:10 Dose: Not Given Documented By: JAYMIE Non-Admin Reason: No Access Sodium Chloride (0.9 % Sodium Chloride Flush 10 Ml Syringe) 5 ml IVFLUSH TID [facility] Last Admin: 05/19/24 15:10 Dose: 5 ml Documented By: JAYMIE Tamsulosin HCl (Tamsulosin Hcl 0.4 Mg Capsule) 0.4 mg PO BID [facility] Last Admin: 05/19/24 07:59 Dose: 0.4 mg Documented By: JAYMIE Labs 05/19/24 05:51 05/17/24 06:27 Labs: Laboratory Results - last 24 hr 05/18/24 05/19/24 05/19/24 20:19 05:51 07:32 MCV 89.3 MCH 29.8 MCHC 33.4 RDW 13.7 Plt Count 331 MPV 8.9 L Absolute Nucleated RBC 0.000 Nucleated RBC % (auto) 0.0 POC Glucose 219 H 270 H B-Natriuretic Peptide 114 H Procalcitonin 0.06 05/19/24 05/19/24 10:54 15:53 MCV MCH MCHC RDW Plt Count MPV Absolute Nucleated RBC Nucleated RBC % (auto) POC Glucose 322 H 286 H B-Natriuretic Peptide Procalcitonin Microbiology Microbiology Results: Microbiology 05/18/24 11:40 Gram Stain - Final Sputum - Expectorated Sputum Culture - Final Assessment and Plan (1) Acute respiratory failure with hypoxia: Status: Acute (2) Pneumonia: Status: Acute Plan 78yo M with COPD not on home O2, MISTY on CPAP, asthma, HTN, NIDDM, CAD, HLD; currently undergoing treatment for osteomyelitis of L great toe with daptomycin;presenting with 3d of dyspnea + productive cough admitted for hypoxia due to PNA + COPD/asthma exac 1. Pneumonia -ceftriaxone/doxycycline 05/15-05/18, switch to levofloxacin 05/18-, BCx negative, -urinary antigens for Legionella and pneumococcus pending.... respiratory pathogen PCR panel negative, MRSA swab negative -CTA negative -await ID input 2.COPD/asthma exac - continue methylprednisolone -aggressive nebs -Ambulate when appropriate -wean O2 as tolerated 3.Osteomyelitis L great toe - continue daptomycin via PICC, end date 06/09/24 4.HTN - held amlodipine + hydralazine + chlorthalidone for soft BP; now hypertensive; resumed amlodipine yesterday, resume hydralazine today 5.CAD -stable and well compensated - ASA, hold statin while on daptomycin 6.DM2 with steroid-induced hyperglycemia -acceptable control on current therapies -lispro correctional scale -adjust as indicated Full code Pneumatic patient requires continued inpatient hospitalization for the following reasons: IV ABX + hypoxia Quality Stroke Does the patient have a stroke diagnosis?: No VTE Prior VTE?: No VTE Risk Level:: Medical - moderate - high VTE Device Contraindication: N/A - Device Ordered VTE Drug Contraindication: N/A - Med Ordered
[2024-05-19 20:09] LABS: Glucose, Whole Blood 311 mg/dL (60-115)
[2024-05-19] MEDS: Latanoprost 0.005 % Ophth Sol 2.5 ML DROPS 1 DROP EYE-BOTH (20:21)
[2024-05-20] VITALS (11 sets, daily range): BP systolic 126–186; BP diastolic 62–77; PULSE 69–94; RESP 15–22; TEMP 36.1–36.6; O2SAT 88–96
--- NOTE | 2024-05-20 00:58 | W.PM.IDCN ---
History of Present Illness Data of Consult Service Date: 05/19/24 Requesting physician: Wilian Rodríguez Primary Care Provider: Denis Diehl MD HPI Reason for consult: shortness of breath He presents with cough and shortness of breath. He has no fever or chills. He is week 2/6 Daptomycin for presumed gram positive left great toe OM. Review of Systems Review of Systems: Yes all other systems are reviewed and are negative Respiratory: Respiratory: Reports cough PMFSH Past Medical History Medical History Hypokalemia COVID Benign prostatic hyperplasia with urinary obstruction MISTY on CPAP Bifascicular block Atherosclerotic cardiovascular disease COPD (chronic obstructive pulmonary disease) Carotid stenosis Hypertension Diabetes Hypercholesteremia Family History Family History Father CVD (cardiovascular disease) Mother No problems noted. Sister Cancer Sister Cancer Family history: reviewed and not pertinent Surgical History Surgical History H/O colonoscopy Hx of elbow surgery History of eyelid surgery S/P TURP (status post transurethral resection of prostate) (~2019) Status post carotid surgery Hx of cataract Social History Social History Household Members: None Housing: House Do you presently have visiting nurse or other home services: Yes Alcohol intake: current Alcohol intake frequency: a few times a week Comment: pt. is ambulatory, steady on foot. Patient Tobacco Use Status: Former Tobacco user e-Cigarette/Vaping Use: Never Used Second Hand Smoke Exposure: No Substance Use Type: Prescription Drugs Advance Directives Date on File: 04/27/24 service: No Current occupational status: retired Current occupational exposures/hazards: No Cognitive needs: No Hearing needs: No Vision needs: No Travel History Ebola Risk: Travel/Contact With Anyone From Affected Area/s: No Meds Allergies Allergy/AdvReac Type Severity Reaction Status Date / Time SADI Inhibitors Allergy Unknown FACIAL Verified 05/15/24 06:02 [SADI INHIBITORS] SWELLING lisinopril [LISINOPRIL] Allergy Unknown FACIAL Verified 05/15/24 06:02 SWELLING, hives, lip edema oxycodone [From PERCOCET] Allergy Unknown JOINT Verified 05/15/24 06:02 STIFFNESS peanut [PEANUTS] Allergy Unknown SWELLING,TH Verified 05/15/24 06:02 ROAT,HIVES Active Medications: Current Medications Acetaminophen (Acetaminophen 325 Mg Tablet) 650 mg PO Q6H PRN PRN Reason: Pain, Mild (Pain Scale 1-3), fever or headache Albuterol Sulfate (Albuterol Sulfate (0.083%) 2.5 Mg/3 Ml Vial.Neb) 2.5 mg INHALE Q2H PRN PRN Reason: Shortness of Breath/Wheezing Albuterol/Ipratropium (Albuterol/Iprat 2.5/0.5mg 3 Ml Ampul.Neb) 3 ml INHALE RQ4H WHILE AWAKE [facility] Last Admin: 05/19/24 20:46 Dose: 3 ml Amlodipine Besylate (Amlodipine Besylate 10 Mg Tablet) 10 mg PO DAILY [facility]; Protocol Last Admin: 05/19/24 07:59 Dose: 10 mg Aspirin (Aspirin Enteric Coated 81 Mg Tablet.Dr) 81 mg PO DAILY [facility] Last Admin: 05/19/24 07:59 Dose: 81 mg Calcium Carbonate (Calcium Carbonate 750 Mg Tab.Chew) 750 mg PO Q4H PRN PRN Reason: Heartburn Enoxaparin Sodium (Enoxaparin Sodium 40 Mg/0.4 Ml Syringe) 40 mg SUBCUT Q24H [facility] Last Admin: 05/18/24 12:02 Dose: Not Given Finasteride (Finasteride 5 Mg Tablet) 5 mg PO DAILY [facility] Last Admin: 05/19/24 07:59 Dose: 5 mg Fluticasone/Vilanterol (Fluticasone/Vilanterol 200/25 Blst.W.Dev) 1 puff INHALE RDAILY [facility] Last Admin: 05/19/24 07:35 Dose: 1 puff Glucose (Glucose Gel 15 Gm Gel..Gram.) 15 gm PO Q15M PRN; Protocol PRN Reason: per Hypoglycemia Standing Ord. Hydralazine HCl (Hydralazine Hcl 50 Mg Tablet) 50 mg PO DAILY [facility]; Protocol Last Admin: 05/19/24 07:59 Dose: 50 mg Dextrose (D10) 250 mls @ 750 mls/hr IV Q15M PRN; Protocol PRN Reason: per Hypoglycemia Standing Ord. Levofloxacin (Levaquin) 750 mg in 150 mls @ 100 mls/hr IV Q24H [facility] Last Infusion: 05/19/24 13:18 Dose: Infused Insulin Human Lispro (Insulin Lispro 100 Unit/Ml 3 Ml Vial) 0 unit SUBCUT QIDACHS [facility]; Protocol Last Admin: 05/19/24 20:19 Dose: 10 unit Latanoprost (Latanoprost 0.005 % Ophth Rosa 2.5 Ml Drops) 1 drop EYE-BOTH BEDTIME [facility] Last Admin: 05/19/24 20:21 Dose: 1 drop Magnesium Hydroxide (Milk Of Magnesia 30 Ml Oral.Susp) 30 ml PO DAILY PRN PRN Reason: Constipation Melatonin (Melatonin 3 Mg Tablet) 6 mg PO BEDTIME PRN PRN Reason: Insomnia Methylprednisolone Sodium Succinate (Methylprednisolone Sod Succ 40 Mg/Ml Vial) 40 mg IVPUSH Q8H [facility] Last Admin: 05/19/24 23:09 Dose: 40 mg Non-Formulary Medication (Brinzolamide-Brimonidine [Simbrinza]) 1 drop EYE-BOTH BID [facility] Non-Formulary Medication (Dhagxjmbyu-Ncbjabfd-Canouylyhk [Breztri Aerosphere]) 2 inhalation INHALE BID [facility] Sodium Chloride (0.9 % Sodium Chloride Flush 3 Ml Syringe) 3 ml IVFLUSH QSHIFT [facility] Last Admin: 05/19/24 20:26 Dose: 3 ml Sodium Chloride (0.9 % Sodium Chloride Flush 10 Ml Syringe) 5 ml IVFLUSH TID [facility] Last Admin: 05/19/24 23:09 Dose: 5 ml Tamsulosin HCl (Tamsulosin Hcl 0.4 Mg Capsule) 0.4 mg PO BID [facility] Last Admin: 05/19/24 20:18 Dose: 0.4 mg Home Medications ?Medication ?Instructions ?Recorded ?Confirmed ?Last Taken ?Type tamsulosin 0.4 mg capsule 0.4 mg PO BID 07/01/20 05/15/24 05/15/24 History aspirin 81 mg tablet,delayed 81 mg PO DAILY 08/03/20 05/15/24 05/15/24 History release finasteride 5 mg tablet 5 mg PO DAILY 02/04/24 05/15/24 05/15/24 History albuterol sulfate 90 mcg/actuation 2 puff inhalation Q4H PRN wheezing 04/28/24 05/15/24 Unknown History aerosol inhaler brinzolamide 1 %-brimonidine 0.2 % 1 drp ophthalmic (eye) BID 04/28/24 05/15/24 05/15/24 History eye drops,suspension (Simbrinza) budesonide 160 mcg-glycopyr 9 2 inh inhalation BID 04/28/24 05/15/24 05/15/24 History mcg-formot 4.8 mcg/actuation HFA inhaler (Breztri Aerosphere) chlorthalidone 50 mg tablet 50 mg PO DAILY 04/28/24 05/15/24 05/15/24 History hydralazine 50 mg tablet 50 mg PO DAILY 04/28/24 05/15/24 05/15/24 History latanoprost 0.005 % eye drops 1 drp ophthalmic (eye) BEDTIME 04/28/24 05/15/24 05/15/24 History daptomycin 500 mg intravenous 500 mg IV Q24H 05/13/24 05/15/24 05/14/24 History solution Physical Exam Vital Signs: Vital Signs: Last Vital Signs Temp 98.1 F 05/19/24 23:19 Pulse 81 05/19/24 23:19 Resp 20 05/19/24 23:19 BP 148/65 H 05/19/24 23:19 Pulse Ox 92 05/19/24 23:19 O2 Del Method CPAP 05/19/24 23:19 O2 Flow Rate 3 05/19/24 15:41 BMI result Body Mass Index 31.9 Const: General: cooperative HEENT: Head: Yes normal to inspection Face and sinus: Yes normal facial exam Mouth: Normal oral and palatal mucosa present Teeth and gingiva: dentition normal Eyes: General: appearance normal, both eyes and all related structures Pupils: Equal, round and reactive pupils present Resp: Effort & Inspection: decreased respiratory effort Cardio: Rate: regular rate Rhythm: regular rhythm GI: Palpation (GI): Soft to palpation and nontender : General: Yes no CVA tenderness Back/Spine/Pelvis: Back: no CVA tenderness Skin: General skin exam: no rashes or lesions noted Neuro: General: moves all extremities Cranial nerves: Yes Equal, round and reactive pupils present Extrem: General: Yes normal to inspection Psych: Appearance: grossly normal Results Labs 05/19/24 05:51 05/17/24 06:27 Labs: Short CBC 05/19/24 Range/Units 05:51 WBC 21.8 H (4.8-10.8) X10*3/uL Hgb 13.1 L (14.0-18.0) g/dl Hct 39.2 L (42.0-52.0) % Plt Count 331 (160-400) X10*3/uL Microbiology Microbiology Results: Microbiology 05/18/24 11:40 Sputum - Expectorated Gram Stain - Final 05/18/24 11:40 Sputum - Expectorated Sputum Culture - Final 05/15/24 06:27 Blood - Venous Blood Culture - Preliminary No growth after 48 hours. 05/15/24 06:20 Blood - Venous Blood Culture - Preliminary No growth after 48 hours. 05/15/24 19:23 Sputum - Expectorated Gram Stain - Final 05/15/24 19:23 Sputum - Expectorated Sputum Culture - Final Assessment and Plan (1) Acute respiratory failure with hypoxia: Status: Acute (2) Hypoxia: Status: Acute (3) Osteomyelitis of great toe of left foot: Status: Acute Plan He may have viral pneumonitis with diffuse airspace disease. Other possible causes are Legionella or strep pneumonia,just in hospital. He may have unusual cause such as Daptomycin induced pneumonia,which is associated with allergies,eosinophilia (has slight). He has been on Daptomycin for OM foot. He also has asthma. Would stop Daptomycin. Levaquin total 14 d po, adjust if needed for renal insufficiency , cover staph/strep. Check urine Legionella antigen. Check RVP if not done.
[2024-05-20] MEDS: methylPREDNISolone Sod Succ 40 MG/ML VIAL IVPUSH ×3 (06:17→23:54)
[2024-05-20 06:51] LABS: Hematocrit 39.8 % (42.0-52.0); Hemoglobin 13.3 g/dl (14.0-18.0); Mean Corpuscular HGB Conc 33.4 g/dl (31.0-36.0); Mean Corpuscular Volume 89.8 fL (80.0-98.0); Mean Platelet Volume 8.7 fL (9.4-12.4); Platelet Count 335 X10*3/uL (160-400); Red Blood Count 4.43 X10*6/uL (4.60-5.80); Red Cell Distribution Width 13.8 % (11.0-16.0); White Blood Count 23.9 X10*3/uL (4.8-10.8)
[2024-05-20 07:08] LABS: Alanine Aminotransferase 24 U/L (0-40); Albumin Level 3.4 g/dL (3.5-5.0); Alkaline Phosphatase 54 U/L (39-117); Anion Gap 13 (12-20); Aspartate Amino Transferase 14 U/L (5-37); Bilirubin Total 0.3 mg/dL (0.0-1.0); Blood Urea Nitrogen 24 mg/dL (9-16); Calcium 9.1 mg/dL (8.4-10.2); Carbon Dioxide 34 mmol/L (22-29); Chloride 94 mmol/L (96-108); Creatinine Clr Calc Pharmacy 74.4; Estimated Glomerular Filt Rate > 60; Glucose Fasting 265 mg/dL (60-99); Potassium 4.2 mmol/L (3.3-5.1); Sodium 137 mmol/L (135-145); Total Protein 6.3 g/dL (6.5-8.0)
[2024-05-20 07:13] LABS: Band Neutrophils Percent 4 % (3-5); Lymphocytes Absolute Manual 2.4 X10*3/uL (1.2-4.9); Lymphocytes Percent Manual 10 % (20-40); Metamyelocytes Absolute 0.2 X10*3/uL; Metamyelocytes Percent 1 %; Monocytes Absolute Manual 1.2 X10*3/uL (0.1-1.2); Monocytes Percent Manual 5 % (2-11); Neutrophils Absolute Manual 20.1 X10*3/uL (2.0-8.3); Neutrophils Percent Manual 80 % (45-73); Nucleated Red Blood Cells 1 /100WBC (0-0)
[2024-05-20 07:14] LABS: Platelet Estimate NORMAL (NORMAL); Platelet Morphology Comment NORMAL; RBC Morphology NORMAL
[2024-05-20 07:36] LABS: Glucose, Whole Blood 257 mg/dL (60-115)
[2024-05-20] MEDS: Insulin Lispro 100 UNIT/ML 3 ML VIAL SUBCUT ×4 (08:00→20:37)
[2024-05-20] MEDS: Finasteride 5 MG TABLET PO (08:01)
[2024-05-20] MEDS: amLODIPine Besylate 10 MG TABLET PO (08:01)
[2024-05-20] MEDS: hydrALAZINE HCl 50 MG TABLET PO (08:01)
[2024-05-20] MEDS: Tamsulosin HCL 0.4 MG CAPSULE PO ×2 (08:01→20:37)
[2024-05-20] MEDS: Aspirin Enteric Coated 81 MG TABLET.DR PO (08:01)
[2024-05-20] MEDS: 0.9 % Sodium Chloride Flush 10 ML SYRINGE 5 ML IVFLUSH ×3 (08:02→20:40)
[2024-05-20] MEDS: Fluticasone/Vilanterol 200/25 BLST.W.DEV 1 PUFF INHALE (09:56)
[2024-05-20] MEDS: Albuterol/Iprat 2.5/0.5MG 3 ML AMPUL.NEB INHALE ×4 (09:56→20:10)
[2024-05-20 11:12] LABS: Glucose, Whole Blood 303 mg/dL (60-115)
[2024-05-20] MEDS: levoFLOXacin/D5W 750 MG/150 ML PIGGYBACK 100 MG IV (11:16)
--- NOTE | 2024-05-20 14:27 | PC.NURSE ---
Patient reported intermittent pinching pain to left shoulder , no edema positive radial and brachial pulse to left upper extremity . DR Rodríguez was notified and pt reported his concerned to MD directly at the bedside
--- NOTE | 2024-05-20 15:18 | P.PNIM_ITS ---
Subjective Subjective Date of Service: 05/20/24 Interval History: Slow to improve but making progress. Review of Systems Denies chest pain Admits shortness of breath is improved albeit slow Denies nausea vomiting diarrhea Denies fever chills Physical Exam 2 Vital Signs: Vital Signs: Last Vital Signs Temp 98 F 05/20/24 11:03 Pulse 85 05/20/24 12:45 Resp 15 05/20/24 12:45 BP 141/64 H 05/20/24 11:03 Pulse Ox 90 L 05/20/24 11:03 O2 Del Method Nasal Cannula 05/20/24 11:03 O2 Flow Rate 3 05/20/24 11:03 BMI result Body Mass Index 31.9 Const: Other: Awake alert no acute distress Resp: Other: Scattered rales/rhonchi at bases; diminished breath sounds. Cardio: Other: No S4; positive S1-S2; no S3 murmurs rubs and gallops GI: Other: Soft nontender nondistended normoactive bowel sounds Extrem: Other: No edema bilaterally Objective Data Active Medications Acetaminophen (Acetaminophen 325 Mg Tablet) 650 mg PO Q6H PRN PRN Reason: Pain, Mild (Pain Scale 1-3), fever or headache Albuterol Sulfate (Albuterol Sulfate (0.083%) 2.5 Mg/3 Ml Vial.Neb) 2.5 mg INHALE Q2H PRN PRN Reason: Shortness of Breath/Wheezing Albuterol/Ipratropium (Albuterol/Iprat 2.5/0.5mg 3 Ml Ampul.Neb) 3 ml INHALE RQ4H WHILE AWAKE [facility] Last Admin: 05/20/24 12:43 Dose: 3 ml Documented By: RADHA Amlodipine Besylate (Amlodipine Besylate 10 Mg Tablet) 10 mg PO DAILY [facility]; Protocol Last Admin: 05/20/24 08:01 Dose: 10 mg Documented By: JAYMIE Aspirin (Aspirin Enteric Coated 81 Mg Tablet.Dr) 81 mg PO DAILY [facility] Last Admin: 05/20/24 08:01 Dose: 81 mg Documented By: JAYMIE Calcium Carbonate (Calcium Carbonate 750 Mg Tab.Chew) 750 mg PO Q4H PRN PRN Reason: Heartburn Enoxaparin Sodium (Enoxaparin Sodium 40 Mg/0.4 Ml Syringe) 40 mg SUBCUT Q24H [facility] Last Admin: 05/18/24 12:02 Dose: Not Given Documented By: JACINTO Non-Admin Reason: Physician Held Med Finasteride (Finasteride 5 Mg Tablet) 5 mg PO DAILY [facility] Last Admin: 05/20/24 08:01 Dose: 5 mg Documented By: JAYMIE Fluticasone/Vilanterol (Fluticasone/Vilanterol 200/25 Blst.W.Dev) 1 puff INHALE RDAILY [facility] Last Admin: 05/20/24 09:56 Dose: 1 puff Documented By: RADHA Glucose (Glucose Gel 15 Gm Gel..Gram.) 15 gm PO Q15M PRN; Protocol PRN Reason: per Hypoglycemia Standing Ord. Hydralazine HCl (Hydralazine Hcl 50 Mg Tablet) 50 mg PO DAILY [facility]; Protocol Last Admin: 05/20/24 08:01 Dose: 50 mg Documented By: JAYMIE Dextrose (D10) 250 mls @ 750 mls/hr IV Q15M PRN; Protocol PRN Reason: per Hypoglycemia Standing Ord. Levofloxacin (Levaquin) 750 mg in 150 mls @ 100 mls/hr IV Q24H [facility] Last Infusion: 05/20/24 12:50 Dose: Infused Documented By: JAYMIE Insulin Human Lispro (Insulin Lispro 100 Unit/Ml 3 Ml Vial) 0 unit SUBCUT QIDACHS [facility]; Protocol Last Admin: 05/20/24 12:06 Dose: 10 unit Documented By: JAYMIE Latanoprost (Latanoprost 0.005 % Ophth Rosa 2.5 Ml Drops) 1 drop EYE-BOTH BEDTIME [facility] Last Admin: 05/19/24 20:21 Dose: 1 drop Documented By: GITA Magnesium Hydroxide (Milk Of Magnesia 30 Ml Oral.Susp) 30 ml PO DAILY PRN PRN Reason: Constipation Melatonin (Melatonin 3 Mg Tablet) 6 mg PO BEDTIME PRN PRN Reason: Insomnia Methylprednisolone Sodium Succinate (Methylprednisolone Sod Succ 40 Mg/Ml Vial) 40 mg IVPUSH Q8H [facility] Last Admin: 05/20/24 14:19 Dose: 40 mg Documented By: JAYMIE Non-Formulary Medication (Brinzolamide-Brimonidine [Simbrinza]) 1 drop EYE-BOTH BID [facility] Non-Formulary Medication (Ylaegvhgwr-Jsiuvhpe-Rgzzfseoki [Breztri Aerosphere]) 2 inhalation INHALE BID [facility] Sodium Chloride (0.9 % Sodium Chloride Flush 3 Ml Syringe) 3 ml IVFLUSH QSHIFT [facility] Last Admin: 05/20/24 14:21 Dose: Not Given Documented By: JAYMIE Non-Admin Reason: No Access Sodium Chloride (0.9 % Sodium Chloride Flush 10 Ml Syringe) 5 ml IVFLUSH TID [facility] Last Admin: 05/20/24 14:20 Dose: 5 ml Documented By: JAYMIE Tamsulosin HCl (Tamsulosin Hcl 0.4 Mg Capsule) 0.4 mg PO BID [facility] Last Admin: 05/20/24 08:01 Dose: 0.4 mg Documented By: JAYMIE Labs 05/20/24 06:30 05/20/24 06:30 Labs: Laboratory Results - last 24 hr 05/19/24 05/19/24 05/20/24 15:53 20:01 06:30 MCV 89.8 MCH 30.0 MCHC 33.4 RDW 13.8 Plt Count 335 MPV 8.7 L Immature Gran % (Auto) Cancelled Neut % (Auto) Cancelled Lymph % (Auto) Cancelled [place] % (Auto) Cancelled Eos % (Auto) Cancelled Baso % (Auto) Cancelled Lymph # (Auto) Cancelled [place] # (Auto) Cancelled Eos # (Auto) Cancelled Baso # (Auto) Cancelled Abs Immat Gran (auto) Cancelled Absolute Neuts (auto) Cancelled Absolute Nucleated RBC 0.000 Nucleated RBC % (auto) 0.0 Neutrophils % (Manual) 80 H Band Neutrophils % 4 Lymphocytes % (Manual) 10 L Monocytes % (Manual) 5 Metamyelocytes % 1 Abs Neuts (Manual) 20.1 H Lymphocytes # (Manual) 2.4 Monocytes # (Manual) 1.2 Metamyelocytes # 0.2 Nucleated RBCs 1 H Platelet Estimate NORMAL Plt Morphology Comment NORMAL RBC Morphology NORMAL Anion Gap 13 Estim Creat Clear Calc 74.4 Estimated GFR > 60 POC Glucose 286 H 311 H Fasting Glucose 265 H Calcium 9.1 Total Bilirubin 0.3 AST 14 ALT 24 Alkaline Phosphatase 54 Total Protein 6.3 L Albumin 3.4 L 05/20/24 05/20/24 07:32 11:08 MCV MCH MCHC RDW Plt Count MPV Immature Gran % (Auto) Neut % (Auto) Lymph % (Auto) [place] % (Auto) Eos % (Auto) Baso % (Auto) Lymph # (Auto) [place] # (Auto) Eos # (Auto) Baso # (Auto) Abs Immat Gran (auto) Absolute Neuts (auto) Absolute Nucleated RBC Nucleated RBC % (auto) Neutrophils % (Manual) Band Neutrophils % Lymphocytes % (Manual) Monocytes % (Manual) Metamyelocytes % Abs Neuts (Manual) Lymphocytes # (Manual) Monocytes # (Manual) Metamyelocytes # Nucleated RBCs Platelet Estimate Plt Morphology Comment RBC Morphology Anion Gap Estim Creat Clear Calc Estimated GFR POC Glucose 257 H 303 H Fasting Glucose Calcium Total Bilirubin AST ALT Alkaline Phosphatase Total Protein Albumin Microbiology Microbiology Results: Microbiology 05/15/24 06:27 Blood Culture - Final Blood - Venous No growth after 5 days. 05/15/24 06:20 Blood Culture - Final Blood - Venous No growth after 5 days. Assessment and Plan (1) Acute respiratory failure with hypoxia: Status: Acute (2) Pneumonia: Status: Acute Plan 78yo M with COPD not on home O2, MISTY on CPAP, asthma, HTN, NIDDM, CAD, HLD; currently undergoing treatment for osteomyelitis of L great toe with daptomycin;presenting with 3d of dyspnea + productive cough admitted for hypoxia due to PNA + COPD/asthma exac 1. Pneumonia -ceftriaxone/doxycycline 05/15-05/18, switch to levofloxacin 05/18-, BCx negative, -urinary antigens for Legionella and pneumococcus pending.... respiratory pathogen PCR panel negative, MRSA swab negative -CTA negative -ID/Pulmonary input appreciated. Now on p.o. Levaquin 2.COPD/asthma exac - continue methylprednisolone -aggressive nebs -Ambulate when appropriate -wean O2 as tolerated 3.Osteomyelitis L great toe - ID DC daptomycin in favor of Levaquin -outpatient follow up 4.HTN - held amlodipine + hydralazine + chlorthalidone for soft BP; now hypertensive; resumed amlodipine yesterday, resume hydralazine today 5.CAD -stable and well compensated - ASA, hold statin while on daptomycin 6.DM2 with steroid-induced hyperglycemia -acceptable control on current therapies -lispro correctional scale -adjust as indicated Full code Pneumatic patient requires continued inpatient hospitalization for the following reasons: IV ABX + hypoxia Quality Stroke Does the patient have a stroke diagnosis?: No VTE Prior VTE?: No VTE Risk Level:: Medical - moderate - high VTE Device Contraindication: N/A - Device Ordered VTE Drug Contraindication: N/A - Med Ordered
[2024-05-20 16:38] LABS: Glucose, Whole Blood 229 mg/dL (60-115)
[2024-05-20 20:23] LABS: Glucose, Whole Blood 344 mg/dL (60-115)
[2024-05-20] MEDS: Latanoprost 0.005 % Ophth Sol 2.5 ML DROPS 1 DROP EYE-BOTH (20:39)
[2024-05-20 23:43] LABS: Glucose, Whole Blood 326 mg/dL (60-115)
[2024-05-21] VITALS (11 sets, daily range): BP systolic 148–169; BP diastolic 70–86; PULSE 65–114; RESP 15–20; TEMP 36–36.6; O2SAT 90–95
[2024-05-21] MEDS: Insulin Lispro 100 UNIT/ML 3 ML VIAL 10 UNIT SUBCUT (00:11)
[2024-05-21 03:04] LABS: Glucose, Whole Blood 244 mg/dL (60-115)
[2024-05-21] MEDS: methylPREDNISolone Sod Succ 40 MG/ML VIAL IVPUSH ×3 (06:38→21:17)
[2024-05-21 07:10] LABS: Glucose, Whole Blood 216 mg/dL (60-115)
[2024-05-21 07:19] LABS: Hematocrit 39.4 % (42.0-52.0); Hemoglobin 13.2 g/dl (14.0-18.0); Mean Corpuscular HGB Conc 33.5 g/dl (31.0-36.0); Mean Corpuscular Hemoglobin 29.7 pg (27.0-33.0); Mean Corpuscular Volume 88.7 fL (80.0-98.0); Mean Platelet Volume 8.7 fL (9.4-12.4); Platelet Count 339 X10*3/uL (160-400); Red Blood Count 4.44 X10*6/uL (4.60-5.80); Red Cell Distribution Width 13.8 % (11.0-16.0); White Blood Count 21.1 X10*3/uL (4.8-10.8)
[2024-05-21] MEDS: Fluticasone/Vilanterol 200/25 BLST.W.DEV 1 PUFF INHALE (07:32)
[2024-05-21 07:35] LABS: Alanine Aminotransferase 23 U/L (0-40); Albumin Level 3.3 g/dL (3.5-5.0); Alkaline Phosphatase 44 U/L (39-117); Anion Gap 16 (12-20); Aspartate Amino Transferase 14 U/L (5-37); Bilirubin Total 0.3 mg/dL (0.0-1.0); Blood Urea Nitrogen 23 mg/dL (9-16); Calcium 8.9 mg/dL (8.4-10.2); Carbon Dioxide 33 mmol/L (22-29); Chloride 94 mmol/L (96-108); Creatinine Clr Calc Pharmacy 82.4; Estimated Glomerular Filt Rate > 60; Glucose Fasting 228 mg/dL (60-99); Potassium 4.5 mmol/L (3.3-5.1); Sodium 138 mmol/L (135-145)
[2024-05-21] MEDS: Albuterol/Iprat 2.5/0.5MG 3 ML AMPUL.NEB INHALE ×4 (08:23→18:57)
[2024-05-21] MEDS: Tamsulosin HCL 0.4 MG CAPSULE PO ×2 (08:26→21:19)
[2024-05-21] MEDS: Insulin Lispro 100 UNIT/ML 3 ML VIAL SUBCUT ×4 (08:26→21:32)
[2024-05-21] MEDS: hydrALAZINE HCl 50 MG TABLET PO (08:26)
[2024-05-21] MEDS: Finasteride 5 MG TABLET PO (08:27)
[2024-05-21] MEDS: Aspirin Enteric Coated 81 MG TABLET.DR PO (08:27)
[2024-05-21] MEDS: amLODIPine Besylate 10 MG TABLET PO (08:27)
[2024-05-21 10:00] LABS: Band Neutrophils Percent 4 % (3-5); Lymphocytes Absolute Manual 1.1 X10*3/uL (1.2-4.9); Lymphocytes Percent Manual 5 % (20-40); Monocytes Absolute Manual 0.2 X10*3/uL (0.1-1.2); Monocytes Percent Manual 1 % (2-11); Neutrophils Absolute Manual 19.8 X10*3/uL (2.0-8.3); Neutrophils Percent Manual 90 % (45-73)
[2024-05-21 10:01] LABS: RBC Morphology NORMAL
[2024-05-21 10:02] LABS: Platelet Estimate NORMAL (NORMAL); Platelet Morphology Comment NORMAL
[2024-05-21] MEDS: 0.9 % Sodium Chloride Flush 10 ML SYRINGE 5 ML IVFLUSH ×3 (10:28→21:25)
[2024-05-21] MEDS: levoFLOXacin/D5W 750 MG/150 ML PIGGYBACK 100 MG IV (11:11)
--- NOTE | 2024-05-21 11:30 | P.CDIM_ITS ---
PROVIDER RESPONSE TEXT: To clarify, the appropriate diagnosis supported by the clinical indicators: Subacute osteomyelitis QUERY TEXT: PHYSICIAN'S DOCUMENTATION REQUEST Date of Query: 05/20/2024 07:27 AM EDT Patient Name: Taqueria Adkins Admit Date: 05/15/2024 Dear Wilian Rodríguez DO, A review of the medical record indicates additional documentation may be needed. Please review below and update the documentation accordingly: Clinical Indicators: Progress notes: Osteomyelitis L great toe Continue daptomycin via PICC, end date 06/09/24. ID [id number] - He has been on Daptomycin for OM.. Currently undergoing treatment for osteomyelitis of L great toe with daptomycin. Based on the above, please clarify in the Progress Notes further specificity regarding the acuity of the Osteomyelitis within the body of the written Plan: Acute osteomyelitis Subacute osteomyelitis Chronic osteomyelitis Other (explain) Clinically unable to determine (explain) Thank you, Ariane Price, CCS, CDIS Use of terms such as suspected, likely, concern for, or probable (associated with a specific diagnosi s that is being evaluated, monitored, or treated as if it exists) are acceptable and can be coded in the inpatient se tting, when documented at the time of discharge. Please use your independent medical judgment in providing your response. THIS QUERY IS PART OF THE PERMANENT MEDICAL RECORD
[2024-05-21 11:39] LABS: Glucose, Whole Blood 313 mg/dL (60-115)
--- NOTE | 2024-05-21 14:05 | P.PNIM_ITS ---
Subjective Subjective Date of Service: 05/21/24 Interval History: No acute issues overnight breathing slowly improved Review of Systems Denies chest pain Admits shortness of breath is improved albeit slow Denies nausea vomiting diarrhea Denies fever chills Physical Exam 2 Vital Signs: Vital Signs: Last Vital Signs Temp 97.4 F 05/21/24 11:06 Pulse 88 05/21/24 11:35 Resp 16 05/21/24 11:35 BP 159/74 H 05/21/24 11:06 Pulse Ox 94 05/21/24 11:06 O2 Del Method Nasal Cannula 05/21/24 11:06 O2 Flow Rate 3 05/21/24 11:06 BMI result Body Mass Index 31.9 Const: Other: Awake alert no acute distress Resp: Other: Scattered rales/rhonchi at bases; diminished breath sounds. Cardio: Other: No S4; positive S1-S2; no S3 murmurs rubs and gallops GI: Other: Soft nontender nondistended normoactive bowel sounds Extrem: Other: No edema bilaterally Objective Data Active Medications Acetaminophen (Acetaminophen 325 Mg Tablet) 650 mg PO Q6H PRN PRN Reason: Pain, Mild (Pain Scale 1-3), fever or headache Albuterol Sulfate (Albuterol Sulfate (0.083%) 2.5 Mg/3 Ml Vial.Neb) 2.5 mg INHALE Q2H PRN PRN Reason: Shortness of Breath/Wheezing Albuterol/Ipratropium (Albuterol/Iprat 2.5/0.5mg 3 Ml Ampul.Neb) 3 ml INHALE RQ4H WHILE AWAKE [facility] Last Admin: 05/21/24 11:35 Dose: 3 ml Documented By: AIDA Amlodipine Besylate (Amlodipine Besylate 10 Mg Tablet) 10 mg PO DAILY [facility]; Protocol Last Admin: 05/21/24 08:27 Dose: 10 mg Documented By: MIKE Aspirin (Aspirin Enteric Coated 81 Mg Tablet.Dr) 81 mg PO DAILY [facility] Last Admin: 05/21/24 08:27 Dose: 81 mg Documented By: MIKE Calcium Carbonate (Calcium Carbonate 750 Mg Tab.Chew) 750 mg PO Q4H PRN PRN Reason: Heartburn Enoxaparin Sodium (Enoxaparin Sodium 40 Mg/0.4 Ml Syringe) 40 mg SUBCUT Q24H [facility] Last Admin: 05/18/24 12:02 Dose: Not Given Documented By: JACINTO Non-Admin Reason: Physician Held Med Finasteride (Finasteride 5 Mg Tablet) 5 mg PO DAILY [facility] Last Admin: 05/21/24 08:27 Dose: 5 mg Documented By: MIKE Fluticasone/Vilanterol (Fluticasone/Vilanterol 200/25 Blst.W.Dev) 1 puff INHALE RDAILY [facility] Last Admin: 05/21/24 07:32 Dose: 1 puff Documented By: AIDA Glucose (Glucose Gel 15 Gm Gel..Gram.) 15 gm PO Q15M PRN; Protocol PRN Reason: per Hypoglycemia Standing Ord. Hydralazine HCl (Hydralazine Hcl 50 Mg Tablet) 50 mg PO DAILY [facility]; Protocol Last Admin: 05/21/24 08:26 Dose: 50 mg Documented By: MIKE Dextrose (D10) 250 mls @ 750 mls/hr IV Q15M PRN; Protocol PRN Reason: per Hypoglycemia Standing Ord. Levofloxacin (Levaquin) 750 mg in 150 mls @ 100 mls/hr IV Q24H [facility] Last Infusion: 05/21/24 12:41 Dose: Infused Documented By: MIKE Insulin Human Lispro (Insulin Lispro 100 Unit/Ml 3 Ml Vial) 0 unit SUBCUT QIDACHS [facility]; Protocol Last Admin: 05/21/24 11:48 Dose: 10 unit Documented By: MIKE Latanoprost (Latanoprost 0.005 % Ophth Rosa 2.5 Ml Drops) 1 drop EYE-BOTH BEDTIME [facility] Last Admin: 05/20/24 20:39 Dose: 1 drop Documented By: GITA Magnesium Hydroxide (Milk Of Magnesia 30 Ml Oral.Susp) 30 ml PO DAILY PRN PRN Reason: Constipation Melatonin (Melatonin 3 Mg Tablet) 6 mg PO BEDTIME PRN PRN Reason: Insomnia Methylprednisolone Sodium Succinate (Methylprednisolone Sod Succ 40 Mg/Ml Vial) 40 mg IVPUSH Q8H [facility] Last Admin: 05/21/24 06:38 Dose: 40 mg Documented By: GITA Non-Formulary Medication (Brinzolamide-Brimonidine [Simbrinza]) 1 drop EYE-BOTH BID [facility] Non-Formulary Medication (Bofkqbgtux-Egnhjthc-Vhsfxozofm [Breztri Aerosphere]) 2 inhalation INHALE BID [place] Sodium Chloride (0.9 % Sodium Chloride Flush 3 Ml Syringe) 3 ml IVFLUSH QSHIFT [facility] Last Admin: 05/21/24 14:04 Dose: Not Given Documented By: MIKE Non-Admin Reason: No Access Sodium Chloride (0.9 % Sodium Chloride Flush 10 Ml Syringe) 5 ml IVFLUSH TID [facility] Last Admin: 05/21/24 10:28 Dose: 5 ml Documented By: MIKE Tamsulosin HCl (Tamsulosin Hcl 0.4 Mg Capsule) 0.4 mg PO BID [facility] Last Admin: 05/21/24 08:26 Dose: 0.4 mg Documented By: MIKE Labs 05/21/24 07:01 05/21/24 07:01 Labs: Laboratory Results - last 24 hr 05/20/24 05/20/24 05/20/24 16:35 20:19 23:26 MCV MCH MCHC RDW Plt Count MPV Immature Gran % (Auto) Neut % (Auto) Lymph % (Auto) [place] % (Auto) Eos % (Auto) Baso % (Auto) Lymph # (Auto) [place] # (Auto) Eos # (Auto) Baso # (Auto) Abs Immat Gran (auto) Absolute Neuts (auto) Absolute Nucleated RBC Nucleated RBC % (auto) Neutrophils % (Manual) Band Neutrophils % Lymphocytes % (Manual) Monocytes % (Manual) Abs Neuts (Manual) Lymphocytes # (Manual) Monocytes # (Manual) Platelet Estimate Plt Morphology Comment RBC Morphology Anion Gap Estim Creat Clear Calc Estimated GFR POC Glucose 229 H 344 H 326 H Fasting Glucose Calcium Total Bilirubin AST ALT Alkaline Phosphatase Total Protein Albumin 05/21/24 05/21/24 05/21/24 03:00 06:56 07:01 MCV 88.7 MCH 29.7 MCHC 33.5 RDW 13.8 Plt Count 339 MPV 8.7 L Immature Gran % (Auto) Cancelled Neut % (Auto) Cancelled Lymph % (Auto) Cancelled [place] % (Auto) Cancelled Eos % (Auto) Cancelled Baso % (Auto) Cancelled Lymph # (Auto) Cancelled [place] # (Auto) Cancelled Eos # (Auto) Cancelled Baso # (Auto) Cancelled Abs Immat Gran (auto) Cancelled Absolute Neuts (auto) Cancelled Absolute Nucleated RBC 0.000 Nucleated RBC % (auto) 0.0 Neutrophils % (Manual) 90 H Band Neutrophils % 4 Lymphocytes % (Manual) 5 L Monocytes % (Manual) 1 L Abs Neuts (Manual) 19.8 H Lymphocytes # (Manual) 1.1 L Monocytes # (Manual) 0.2 Platelet Estimate NORMAL Plt Morphology Comment NORMAL RBC Morphology NORMAL Anion Gap 16 Estim Creat Clear Calc 82.4 Estimated GFR > 60 POC Glucose 244 H 216 H Fasting Glucose 228 H Calcium 8.9 Total Bilirubin 0.3 AST 14 ALT 23 Alkaline Phosphatase 44 Total Protein 6.0 L Albumin 3.3 L 05/21/24 11:35 MCV MCH MCHC RDW Plt Count MPV Immature Gran % (Auto) Neut % (Auto) Lymph % (Auto) [place] % (Auto) Eos % (Auto) Baso % (Auto) Lymph # (Auto) [place] # (Auto) Eos # (Auto) Baso # (Auto) Abs Immat Gran (auto) Absolute Neuts (auto) Absolute Nucleated RBC Nucleated RBC % (auto) Neutrophils % (Manual) Band Neutrophils % Lymphocytes % (Manual) Monocytes % (Manual) Abs Neuts (Manual) Lymphocytes # (Manual) Monocytes # (Manual) Platelet Estimate Plt Morphology Comment RBC Morphology Anion Gap Estim Creat Clear Calc Estimated GFR POC Glucose 313 H Fasting Glucose Calcium Total Bilirubin AST ALT Alkaline Phosphatase Total Protein Albumin Assessment and Plan (1) Pneumonia: Status: Acute Plan 78yo M with COPD not on home O2, MISTY on CPAP, asthma, HTN, NIDDM, CAD, HLD; currently undergoing treatment for osteomyelitis of L great toe with daptomycin;presenting with 3d of dyspnea + productive cough admitted for hypoxia due to PNA + COPD/asthma exac 1. Pneumonia -ceftriaxone/doxycycline 05/15-05/18, switch to levofloxacin(3) -urinary antigens for Legionella and pneumococcus pending.... respiratory pathogen PCR panel negative, MRSA swab negative -daptomycin DC by Pulmonary question related to lung process 2.COPD/asthma exac - continue methylprednisolone -aggressive nebs -Ambulate when appropriate -wean O2 as tolerated 3.Osteomyelitis L great toe - ID DC daptomycin in favor of Levaquin -per ID. . . Two additional weeks of p.o. Levaquin 4.HTN - held amlodipine + hydralazine + chlorthalidone for soft BP; now hypertensive; resumed amlodipine yesterday, resume hydralazine today 5.CAD -stable and well compensated - ASA, hold statin while on daptomycin 6.DM2 with steroid-induced hyperglycemia -acceptable control on current therapies -lispro correctional scale -adjust as indicated Full code Pneumatic patient requires continued inpatient hospitalization for the following reasons: IV ABX + hypoxia Quality Stroke Does the patient have a stroke diagnosis?: No VTE Prior VTE?: No VTE Risk Level:: Medical - moderate - high VTE Device Contraindication: N/A - Device Ordered VTE Drug Contraindication: N/A - Med Ordered
--- NOTE | 2024-05-21 14:13 | MHC.CM.PN ---
EMR reviewed and per MD rounds, pt is not medically cleared for discharge due to management of COPD and pneumonia.
[2024-05-21 16:28] LABS: Glucose, Whole Blood 293 mg/dL (60-115)
[2024-05-21] MEDS: BUDESONIDE GLYCOPYR FORMOTEROL 2 EACH INHALE (18:57)
[2024-05-21] MEDS: Latanoprost 0.005 % Ophth Sol 2.5 ML DROPS 1 DROP EYE-BOTH (21:20)
[2024-05-21] MEDS: BRINZOLAMIDE BRIMONIDINE 1 EACH EYE-BOTH (21:23)
[2024-05-21] MEDS: 0.9 % Sodium Chloride Flush 3 ML SYRINGE IVFLUSH (21:23)
[2024-05-21 21:24] LABS: Glucose, Whole Blood 292 mg/dL (60-115)
[2024-05-22] VITALS (13 sets, daily range): BP systolic 132–160; BP diastolic 60–72; PULSE 67–97; RESP 16–20; TEMP 36.1–36.7; O2SAT 89–98
[2024-05-22] MEDS: methylPREDNISolone Sod Succ 40 MG/ML VIAL IVPUSH ×2 (05:45→17:05)
[2024-05-22 07:07] LABS: Hematocrit 39.6 % (42.0-52.0); Hemoglobin 13.1 g/dl (14.0-18.0); Mean Corpuscular HGB Conc 33.1 g/dl (31.0-36.0); Mean Corpuscular Volume 90.6 fL (80.0-98.0); Mean Platelet Volume 8.9 fL (9.4-12.4); Platelet Count 331 X10*3/uL (160-400); Red Blood Count 4.37 X10*6/uL (4.60-5.80); White Blood Count 19.2 X10*3/uL (4.8-10.8)
[2024-05-22 07:14] LABS: Alanine Aminotransferase 21 U/L (0-40); Albumin Level 3.3 g/dL (3.5-5.0); Alkaline Phosphatase 48 U/L (39-117); Anion Gap 13 (12-20); Aspartate Amino Transferase 10 U/L (5-37); Bilirubin Total 0.2 mg/dL (0.0-1.0); Blood Urea Nitrogen 24 mg/dL (9-16); Calcium 9.1 mg/dL (8.4-10.2); Carbon Dioxide 32 mmol/L (22-29); Chloride 95 mmol/L (96-108); Creatinine Clr Calc Pharmacy 80.5; Estimated Glomerular Filt Rate > 60; Glucose Fasting 305 mg/dL (60-99); Potassium 4.9 mmol/L (3.3-5.1); Sodium 135 mmol/L (135-145); Total Protein 5.8 g/dL (6.5-8.0)
[2024-05-22] MEDS: BUDESONIDE GLYCOPYR FORMOTEROL 2 EACH INHALE ×2 (07:21→19:38)
[2024-05-22] MEDS: Albuterol/Iprat 2.5/0.5MG 3 ML AMPUL.NEB INHALE ×4 (07:21→19:39)
[2024-05-22 07:22] LABS: Glucose, Whole Blood 264 mg/dL (60-115)
[2024-05-22] MEDS: Insulin Lispro 100 UNIT/ML 3 ML VIAL SUBCUT ×4 (07:47→21:10)
[2024-05-22] MEDS: Aspirin Enteric Coated 81 MG TABLET.DR PO (07:48)
[2024-05-22] MEDS: Tamsulosin HCL 0.4 MG CAPSULE PO ×2 (07:48→21:11)
[2024-05-22] MEDS: hydrALAZINE HCl 50 MG TABLET PO (07:48)
[2024-05-22] MEDS: Finasteride 5 MG TABLET PO (07:48)
[2024-05-22] MEDS: amLODIPine Besylate 10 MG TABLET PO (07:48)
[2024-05-22] MEDS: 0.9 % Sodium Chloride Flush 10 ML SYRINGE 5 ML IVFLUSH ×2 (07:49→21:15)
[2024-05-22 08:22] LABS: Band Neutrophils Percent 2 % (3-5); Lymphocytes Absolute Manual 0.8 X10*3/uL (1.2-4.9); Lymphocytes Percent Manual 4 % (20-40); Metamyelocytes Absolute 0.6 X10*3/uL; Metamyelocytes Percent 3 %; Monocytes Absolute Manual 0.6 X10*3/uL (0.1-1.2); Monocytes Percent Manual 3 % (2-11); Myelocytes Absolute 0.2 X10*/uL; Myelocytes Percent 1 %; Neutrophils Absolute Manual 17.1 X10*3/uL (2.0-8.3); Neutrophils Percent Manual 87 % (45-73)
[2024-05-22 08:24] LABS: Platelet Estimate NORMAL (NORMAL); Platelet Morphology Comment NORMAL; RBC Morphology NORMAL
[2024-05-22] MEDS: BRINZOLAMIDE BRIMONIDINE 1 EACH EYE-BOTH ×2 (09:24→21:13)
[2024-05-22] MEDS: levoFLOXacin/D5W 750 MG/150 ML PIGGYBACK 100 MG IV (10:57)
[2024-05-22 11:15] LABS: Glucose, Whole Blood 268 mg/dL (60-115)
--- NOTE | 2024-05-22 15:35 | HO.PM.IMPN ---
Subjective Subjective Date of Service: 05/22/24 Interval History: Seen and examined this morning Follow-up for pneumonia Overall improving, oxygen requirements decreasing. No significant dyspnea. Has not been ambulating much Review of Systems Review of Systems: Yes all other systems are reviewed and are negative Constitutional Constitutional: Denies chills and Denies fever(s) Cardiovascular Cardiovascular: Denies chest pain and Denies palpitations Gastrointestinal Gastrointestinal: Denies abdominal pain Endocrine Endocrine: Denies palpitations Physical Exam Vital Signs: Vital Signs: Last Vital Signs Temp 96.9 F 05/22/24 15:18 Pulse 97 05/22/24 15:18 Resp 18 05/22/24 15:18 BP 160/60 H 05/22/24 15:18 Pulse Ox 97 05/22/24 15:18 O2 Del Method Room Air 05/22/24 15:18 O2 Flow Rate 2 05/21/24 20:00 BMI result Body Mass Index 31.9 Const: General: cooperative, comfortable, no acute distress, alert and awake Nutritional Appearance: well nourished Orientation/consciousness: patient oriented x3 Resp: Effort & Inspection: normal respiratory effort and no respiratory distress Auscultation: clear to auscultation bilaterally Cardio: Rate: regular rate Rhythm: regular rhythm GI: Palpation (GI): Soft to palpation and nontender Neuro: General: patient oriented x3, moves all extremities and CN's II-XI intact bilaterally Cranial nerves: Yes CN's II-XII intact bilaterally Extrem: General: Yes no pedal edema Objective Data Active Medications Acetaminophen (Acetaminophen 325 Mg Tablet) 650 mg PO Q6H PRN PRN Reason: Pain, Mild (Pain Scale 1-3), fever or headache Albuterol Sulfate (Albuterol Sulfate (0.083%) 2.5 Mg/3 Ml Vial.Neb) 2.5 mg INHALE Q2H PRN PRN Reason: Shortness of Breath/Wheezing Albuterol/Ipratropium (Albuterol/Iprat 2.5/0.5mg 3 Ml Ampul.Neb) 3 ml INHALE RQ4H WHILE AWAKE [facility] Last Admin: 05/22/24 14:59 Dose: 3 ml Documented By: SANCHEZ Amlodipine Besylate (Amlodipine Besylate 10 Mg Tablet) 10 mg PO DAILY [facility]; Protocol Last Admin: 05/22/24 07:48 Dose: 10 mg Documented By: ANNELISE Aspirin (Aspirin Enteric Coated 81 Mg Tablet.Dr) 81 mg PO DAILY [facility] Last Admin: 05/22/24 07:48 Dose: 81 mg Documented By: ANNELISE Calcium Carbonate (Calcium Carbonate 750 Mg Tab.Chew) 750 mg PO Q4H PRN PRN Reason: Heartburn Enoxaparin Sodium (Enoxaparin Sodium 40 Mg/0.4 Ml Syringe) 40 mg SUBCUT Q24H [facility] Last Admin: 05/18/24 12:02 Dose: Not Given Documented By: JACINTO Non-Admin Reason: Physician Held Med Finasteride (Finasteride 5 Mg Tablet) 5 mg PO DAILY [facility] Last Admin: 05/22/24 07:48 Dose: 5 mg Documented By: ANNELISE Glucose (Glucose Gel 15 Gm Gel..Gram.) 15 gm PO Q15M PRN; Protocol PRN Reason: per Hypoglycemia Standing Ord. Hydralazine HCl (Hydralazine Hcl 50 Mg Tablet) 50 mg PO DAILY [facility]; Protocol Last Admin: 05/22/24 07:48 Dose: 50 mg Documented By: ANNELISE Dextrose (D10) 250 mls @ 750 mls/hr IV Q15M PRN; Protocol PRN Reason: per Hypoglycemia Standing Ord. Levofloxacin (Levaquin) 750 mg in 150 mls @ 100 mls/hr IV Q24H [facility] Last Infusion: 05/22/24 14:26 Dose: Infused Documented By: ANNELISE Insulin Human Lispro (Insulin Lispro 100 Unit/Ml 3 Ml Vial) 0 unit SUBCUT QIDACHS [facility]; Protocol Last Admin: 05/22/24 11:44 Dose: 8 unit Documented By: ANNELISE Latanoprost (Latanoprost 0.005 % Ophth Rosa 2.5 Ml Drops) 1 drop EYE-BOTH BEDTIME [facility] Last Admin: 05/21/24 21:20 Dose: 1 drop Documented By: VANESA Magnesium Hydroxide (Milk Of Magnesia 30 Ml Oral.Susp) 30 ml PO DAILY PRN PRN Reason: Constipation Melatonin (Melatonin 3 Mg Tablet) 6 mg PO BEDTIME PRN PRN Reason: Insomnia Methylprednisolone Sodium Succinate (Methylprednisolone Sod Succ 40 Mg/Ml Vial) 40 mg IVPUSH Q12H [facility] Non-Formulary Med ( Brinzolamide- Brimonidine [ Simbrinza] 1-0.2 % Drops,Suspension) 1 drop EYE-BOTH BID [facility] Last Admin: 05/22/24 09:24 Dose: 1 drop Documented By: ANNELISE Non-Formulary Medication ( Budesonide-Glycopyr- Formoterol [Breztri Aerosphere] 160-9-4. 8mcg 2 inhalation INHALE RBID [facility] Last Admin: 05/22/24 07:21 Dose: 2 inhalation Documented By: SANCHEZ Sodium Chloride (0.9 % Sodium Chloride Flush 3 Ml Syringe) 3 ml IVFLUSH QSHIFT [facility] Last Admin: 05/22/24 09:14 Dose: Not Given Documented By: ANNELISE Non-Admin Reason: Previously Administered Sodium Chloride (0.9 % Sodium Chloride Flush 10 Ml Syringe) 5 ml IVFLUSH TID [facility] Last Admin: 05/22/24 07:49 Dose: 5 ml Documented By: ANNELISE Tamsulosin HCl (Tamsulosin Hcl 0.4 Mg Capsule) 0.4 mg PO BID [facility] Last Admin: 05/22/24 07:48 Dose: 0.4 mg Documented By: ANNELISE Labs 05/22/24 06:12 05/22/24 06:12 Labs: Laboratory Results - last 24 hr 05/21/24 05/21/24 05/22/24 16:25 21:09 06:12 MCV 90.6 MCH 30.0 MCHC 33.1 RDW 14.0 Plt Count 331 MPV 8.9 L Immature Gran % (Auto) Cancelled Neut % (Auto) Cancelled Lymph % (Auto) Cancelled [place] % (Auto) Cancelled Eos % (Auto) Cancelled Baso % (Auto) Cancelled Lymph # (Auto) Cancelled [place] # (Auto) Cancelled Eos # (Auto) Cancelled Baso # (Auto) Cancelled Abs Immat Gran (auto) Cancelled Absolute Neuts (auto) Cancelled Absolute Nucleated RBC 0.000 Nucleated RBC % (auto) 0.0 Neutrophils % (Manual) 87 H Band Neutrophils % 2 L Lymphocytes % (Manual) 4 L Monocytes % (Manual) 3 Metamyelocytes % 3 Myelocytes % 1 Abs Neuts (Manual) 17.1 H Lymphocytes # (Manual) 0.8 L Monocytes # (Manual) 0.6 Metamyelocytes # 0.6 Myelocytes # 0.2 Platelet Estimate NORMAL Plt Morphology Comment NORMAL RBC Morphology NORMAL Anion Gap 13 Estim Creat Clear Calc 80.5 Estimated GFR > 60 POC Glucose 293 H 292 H Fasting Glucose 305 H Calcium 9.1 Total Bilirubin 0.2 AST 10 ALT 21 Alkaline Phosphatase 48 Total Protein 5.8 L Albumin 3.3 L 05/22/24 05/22/24 07:14 11:08 MCV MCH MCHC RDW Plt Count MPV Immature Gran % (Auto) Neut % (Auto) Lymph % (Auto) [place] % (Auto) Eos % (Auto) Baso % (Auto) Lymph # (Auto) [place] # (Auto) Eos # (Auto) Baso # (Auto) Abs Immat Gran (auto) Absolute Neuts (auto) Absolute Nucleated RBC Nucleated RBC % (auto) Neutrophils % (Manual) Band Neutrophils % Lymphocytes % (Manual) Monocytes % (Manual) Metamyelocytes % Myelocytes % Abs Neuts (Manual) Lymphocytes # (Manual) Monocytes # (Manual) Metamyelocytes # Myelocytes # Platelet Estimate Plt Morphology Comment RBC Morphology Anion Gap Estim Creat Clear Calc Estimated GFR POC Glucose 264 H 268 H Fasting Glucose Calcium Total Bilirubin AST ALT Alkaline Phosphatase Total Protein Albumin Assessment and Plan (1) Acute respiratory failure with hypoxia: Status: Acute Plan 78yo M with COPD not on home O2, MISTY on CPAP, asthma, HTN, NIDDM, CAD, HLD; currently undergoing treatment for osteomyelitis of L great toe with daptomycin;presenting with 3d of dyspnea + productive cough admitted for hypoxia due to PNA + COPD/asthma exac Pneumonia ceftriaxone/doxycycline 05/15-05/18, switched to levofloxacin 05/18 urinary antigens for Legionella pending and pneumococcus negative; respiratory pathogen PCR panel negative, MRSA swab negative daptomycin DC by Pulmonary question related to lung process Oxygen demands improving, wean oxygen as tolerated acute COPD/asthma exacerbation begin weaning methylprednisolone Continue breathing treatments wean O2 as tolerated Osteomyelitis L great toe ID DC daptomycin in favor of Levaquin per ID. Two additional weeks of p.o. Levaquin on discharge remove PICC line in am outpatient follow up with IC HTN held amlodipine + hydralazine + chlorthalidone for soft BP; now hypertensive; resumed amlodipine yesterday, resume hydralazine today CAD stable and well compensated ASA DM2 with steroid-induced hyperglycemia Metformin on hold acceptable control on current therapies lispro correctional scale MISTY Continue CPAP Overnight oximetry test to determine need for oxygen with CPAP Full code dvt ppx -Lovenox was placed on hold several days ago to hemoptysis, this has resolved. Consider resuming. Continue mechanical devices PT - reporting dyspnea with exertion, desaturation with ambulation patient requires continued inpatient hospitalization for the following reasons: IV ABX + hypoxia Quality Stroke Does the patient have a stroke diagnosis?: No VTE Prior VTE?: No VTE Risk Level:: Medical - moderate - high VTE Device Contraindication: N/A - Device Ordered VTE Drug Contraindication: N/A - Med Ordered
[2024-05-22 16:52] LABS: Glucose, Whole Blood 242 mg/dL (60-115)
[2024-05-22] MEDS: 0.9 % Sodium Chloride Flush 3 ML SYRINGE IVFLUSH ×2 (17:06→21:11)
[2024-05-22 19:39] LABS: Glucose, Whole Blood 210 mg/dL (60-115)
[2024-05-22] MEDS: Latanoprost 0.005 % Ophth Sol 2.5 ML DROPS 1 DROP EYE-BOTH (21:13)
[2024-05-23] VITALS (9 sets, daily range): BP systolic 136–144; BP diastolic 52–72; PULSE 67–106; RESP 16–20; TEMP 36.1–36.8; O2SAT 87–96
[2024-05-23] MEDS: methylPREDNISolone Sod Succ 40 MG/ML VIAL IVPUSH (04:50)
[2024-05-23 07:02] LABS: Hematocrit 42.5 % (42.0-52.0); Mean Corpuscular HGB Conc 32.9 g/dl (31.0-36.0); Mean Corpuscular Hemoglobin 29.9 pg (27.0-33.0); Mean Corpuscular Volume 90.8 fL (80.0-98.0); Mean Platelet Volume 8.6 fL (9.4-12.4); Platelet Count 328 X10*3/uL (160-400); Red Blood Count 4.68 X10*6/uL (4.60-5.80); Red Cell Distribution Width 14.1 % (11.0-16.0); White Blood Count 18.3 X10*3/uL (4.8-10.8)
[2024-05-23 07:12] LABS: Glucose, Whole Blood 293 mg/dL (60-115)
[2024-05-23 07:27] LABS: Band Neutrophils Percent 4 % (3-5); Lymphocytes Absolute Manual 1.5 X10*3/uL (1.2-4.9); Lymphocytes Percent Manual 8 % (20-40); Metamyelocytes Absolute 0.4 X10*3/uL; Metamyelocytes Percent 2 %; Monocytes Absolute Manual 1.5 X10*3/uL (0.1-1.2); Monocytes Percent Manual 8 % (2-11); Neutrophils Percent Manual 78 % (45-73); Platelet Estimate NORMAL (NORMAL); Platelet Morphology Comment NORMAL; RBC Morphology NORMAL
[2024-05-23] MEDS: BUDESONIDE GLYCOPYR FORMOTEROL 2 EACH INHALE (07:59)
[2024-05-23] MEDS: Albuterol/Iprat 2.5/0.5MG 3 ML AMPUL.NEB INHALE ×3 (07:59→15:32)
[2024-05-23] MEDS: Insulin Lispro 100 UNIT/ML 3 ML VIAL SUBCUT ×2 (09:22→12:37)
[2024-05-23] MEDS: 0.9 % Sodium Chloride Flush 10 ML SYRINGE 5 ML IVFLUSH (09:22)
[2024-05-23] MEDS: Aspirin Enteric Coated 81 MG TABLET.DR PO (09:23)
[2024-05-23] MEDS: hydrALAZINE HCl 50 MG TABLET PO (09:23)
[2024-05-23] MEDS: Finasteride 5 MG TABLET PO (09:23)
[2024-05-23] MEDS: amLODIPine Besylate 10 MG TABLET PO (09:23)
[2024-05-23] MEDS: Tamsulosin HCL 0.4 MG CAPSULE PO (09:23)
[2024-05-23] MEDS: BRINZOLAMIDE BRIMONIDINE 1 EACH EYE-BOTH (09:30)
[2024-05-23] MEDS: levoFLOXacin/D5W 750 MG/150 ML PIGGYBACK 100 MG IV (11:19)
[2024-05-23 11:32] LABS: Glucose, Whole Blood 263 mg/dL (60-115)
--- NOTE | 2024-05-23 11:34 | P.DS_ITS ---
DS: Providers Provider Date of Service: 05/23/24 Date of admission: 05/15/24 09:44 Date of discharge: 05/23/24 Primary care physician: Denis Diehl MD Consults: 05/18/24 10:27 Consult to Pulmonology Routine Consulting Provider: [facility] Pulmonology Services Reason for consultation: hypoxia, COPD, pneumonia not improving 05/19/24 07:54 Consult to Infectious Diseases Routine Consulting Provider: [facility] Infectious Disease [facility] Reason for consultation: Pneumonia Has provider been notified: Yes Attending physician on discharge: Santhosh Disla Discharging clinician: Nadine Ram DS: Diagnosis Discharge Diagnosis (1) Acute respiratory failure with hypoxia: Status: Acute DS: Summary Hospital Course Hospital Course: From H&P on the day of admission 78 yo M with a pmhx of COPD (not on home O2), asthma, MISTY on CPAP, HTN, NIDDM, CAD, HLD, BPH s/p TURP, currently being treated for osteomyelitis L great toe with daptomycin via PICC line, presented to ED with c/o SOB, cough, few episodes of dark brown sputum and dry mouth for the past 3 days. unable to lay flat. has needed to use his albuterol much more often, usually 1x/day. denies sick contacts. no N/V/D or abd pain. given breathing treatment, methylprednisone, doxy and ceftriazone in ED with some relief. Pneumonia Initially treated with IV ceftriaxone/doxycycline 05/15-05/18, he was switched to levofloxacin 05/18 due to lack of improvement with previous regimen. urinary antigens for Legionella pending and pneumococcus negative; respiratory pathogen PCR panel negative, MRSA swab negative. He was seen by infectious diseases and pulmonology and daptomycin was discontinued due to question that was contributing to lung process. With these changes his oxygen demands have improved significantly and his breathing is improving. He does continued to have some shortness of breath with exertion and a home oxygen evaluation was obtained. He does qualify for 2 L of supplemental oxygen at rest and 4 L with ambulation. Physical therapy recommended inpatient pulmonary rehab versus home with services. Patient declines to go to rehab and has opted to return home with physical therapy and VNA services. He will be discharged home to complete course of antibiotics. . acute COPD/asthma exacerbation Exacerbated by above. Treated with systemic steroids and breathing treatments. We will be discharged with steroid taper. Osteomyelitis L great toe Diagnosed with osteomyelitis on previous admission and was discharged with IV daptomycin via PICC line. ID DC daptomycin in favor of Levaquin, per ID two additional weeks of p.o. Levaquin on discharge PICC line was removed and he will need outpatient follow up with ID. HTN held amlodipine + hydralazine + chlorthalidone for soft BP. bp improved and amlodipine, hydralazine resumed. chlorthalidone remains on hold. outpatient follow up with PCP recommended Time Attestation Discharge Coordination Time (in mins): 40 Quality: Safe Use of Opioids Does Pt have an Active Cancer Diagnosis on the Problem List?: No Quality: Stroke Does the patient have a stroke diagnosis?: No Physical Exam 2 Vital Signs: Vital Signs: Last Vital Signs Temp 97.9 F 05/23/24 07:46 Pulse 78 05/23/24 11:11 Resp 20 05/23/24 08:00 BP 136/52 L 05/23/24 09:23 Pulse Ox 96 05/23/24 07:46 O2 Del Method CPAP 05/23/24 07:46 O2 Flow Rate 2 05/21/24 20:00 BMI result Body Mass Index 31.9 Const: General: cooperative, comfortable, no acute distress, alert and awake Nutritional Appearance: well nourished Orientation/consciousness: patient oriented x3 Resp: Effort & Inspection: normal respiratory effort and no respiratory distress Cardio: Rate: regular rate GI: Palpation (GI): Soft to palpation and nontender Skin: Other: lft great toe, no warmth or drainage Neuro: General: patient oriented x3, moves all extremities and CN's II-XI intact bilaterally DS: Data Data Completed and Pending Completed studies during hospitalization [Text1]: Procedures Control Bleeding in Genitourinary Tract, Via Natural or Artificial Opening Endoscopic (04/17/23) Extirpation of Matter from Bladder, Via Natural or Artificial Opening Endoscopic (04/17/23) Insertion of Infusion Device into Superior Vena Cava, Percutaneous Approach (04/27/24) Irrigation of Genitourinary Tract using Irrigating Substance, Via Natural or Artificial Opening (04/17/23) Ultrasonography of Superior Vena Cava, Guidance (04/27/24) Labs on day of discharge: Laboratory Results - last 24 hr 05/22/24 05/22/24 05/23/24 16:48 19:36 06:12 WBC 18.3 H RBC 4.68 Hgb 14.0 Hct 42.5 MCV 90.8 MCH 29.9 MCHC 32.9 RDW 14.1 Plt Count 328 MPV 8.6 L Immature Gran % (Auto) Cancelled Neut % (Auto) Cancelled Lymph % (Auto) Cancelled Bartholomew % (Auto) Cancelled Eos % (Auto) Cancelled Baso % (Auto) Cancelled Lymph # (Auto) Cancelled Bartholomew # (Auto) Cancelled Eos # (Auto) Cancelled Baso # (Auto) Cancelled Abs Immat Gran (auto) Cancelled Absolute Neuts (auto) Cancelled Absolute Nucleated RBC 0.000 Nucleated RBC % (auto) 0.0 Neutrophils % (Manual) 78 H Band Neutrophils % 4 Lymphocytes % (Manual) 8 L Monocytes % (Manual) 8 Metamyelocytes % 2 Abs Neuts (Manual) 15.0 H Lymphocytes # (Manual) 1.5 Monocytes # (Manual) 1.5 H Metamyelocytes # 0.4 Platelet Estimate NORMAL Plt Morphology Comment NORMAL RBC Morphology NORMAL POC Glucose 242 H 210 H 05/23/24 05/23/24 07:07 11:27 WBC RBC Hgb Hct MCV MCH MCHC RDW Plt Count MPV Immature Gran % (Auto) Neut % (Auto) Lymph % (Auto) Bartholomew % (Auto) Eos % (Auto) Baso % (Auto) Lymph # (Auto) Bartholomew # (Auto) Eos # (Auto) Baso # (Auto) Abs Immat Gran (auto) Absolute Neuts (auto) Absolute Nucleated RBC Nucleated RBC % (auto) Neutrophils % (Manual) Band Neutrophils % Lymphocytes % (Manual) Monocytes % (Manual) Metamyelocytes % Abs Neuts (Manual) Lymphocytes # (Manual) Monocytes # (Manual) Metamyelocytes # Platelet Estimate Plt Morphology Comment RBC Morphology POC Glucose 293 H 263 H Discharge Plan Discharge Anticipated Discharge Date/Time: 05/23/24 12:09 Patient Disposition: Home Health Service Discharge Diagnosis: Acute respiratory failure with hypoxia COPD exacerbation Pneumonia Referrals: Denis Diehl MD [Primary Care Provider] - 1 Week Henna Cortez MD [Physician] - 1 Week Presley Mendenhall MD [Physician] - 1 Week (respiratory failure) Discharge Medications: New levofloxacin 750 mg tablet 750 mg PO Q24H 14 Days Qty: 14 0RF prednisone 10 mg tablet See Taper PO DIRECTED Qty: 50 0RF Taper: Prednisone 40 mg daily for 5 Days and 0 Hour 30 mg daily for 5 Days and 0 Hour 20 mg daily for 5 Days and 0 Hour 10 mg daily for 5 Days and 0 Hour Rx Instructions: see taper instructions Continued amlodipine 10 mg tablet 10 mg PO DAILY Qty: 30 6RF metformin 1,000 mg tablet 1,000 mg PO BID 90 Days Qty: 180 3RF latanoprost 0.005 % drops 1 drp ophthalmic (eye) BEDTIME Rx Instructions: BOTH EYES albuterol sulfate 90 mcg/actuation HFA aerosol inhaler 2 puff inhalation Q4H PRN (Reason: wheezing) Simbrinza 1-0.2 % drops,suspension 1 drp ophthalmic (eye) BID Rx Instructions: BOTH EYES Breztri Aerosphere 160-9-4.8 mcg/actuation HFA aerosol inhaler 2 inh INHALATION BID hydralazine 50 mg tablet 50 mg PO DAILY tamsulosin 0.4 mg capsule 0.4 mg PO BID aspirin 81 mg tablet,delayed release (DR/EC) 81 mg PO DAILY finasteride 5 mg tablet 5 mg PO DAILY Held chlorthalidone 50 mg tablet 50 mg PO DAILY Hold Instructions: hold until outpatient follow up Discontinued sodium chloride 0.9 % (flush) [Normal Saline Flush] Syringe 5 ml IVFLUSH TID Qty: 300 0RF daptomycin 500 mg recon soln 500 mg IV Q24H No Action (DME) blood sugar diagnostic Strip See Rx Instructions .ROUTE .MEDSUPPLY Qty: 50 2RF Rx Instructions: USE DIRECTED DAILY (DME) OneTouch Ultra Test Strip See Rx Instructions .Route Qty: 25 2RF Rx Instructions: check blood sugar one time daily prn as directed Discharge Orders: Discharge Order (Routine); Ordered 05/23/24 Ordered By: Nadine Ram Activity on Discharge: As tolerated Stand Alone Forms: Patient Portal Discharge page Print Language: Occitan Care Plan Goals: See below Health Concerns: Acute respiratory failure with hypoxia Acute COPD exacerbation Pneumonia Osteomyelitis Plan of Treatment: Complete 14 days of levofloxacin for underlying osteomyelitis as well as completing treatment for pneumonia. Call to schedule follow-up appointment with Dr. Cortez complete steroid taper as prescribed You qualify for 2 L of supplemental oxygen at rest and 4 L with exertion He will be discharged home with PT and VNA services Call to schedule a follow-up appointment with your PCP Return with new or worsening symptoms Assessment: See discharge summary
--- NOTE | 2024-05-23 12:18 | W.MHC.F2F ---
Service Date Service Date: 05/23/24 Encounter Date of encounter: 05/23/24 Reasons for Services Signs and symptoms assessed: new oxygen, monitor o2 saturation; blood pressure moitoring, chlorthalidone on hold Reason for senior living: other Reason for physical therapy: therapeutic exercises and energy conservation Overseeing Care: Denis Diehl Homebound: Leaving the home is medically contraindicated at this time without the asist of a device and/or another person due th the listed conditions above and below. Reason homebound: shortness of breath with minimal effort Certification: Based on the above findings, I certify that this patient is confined to the home and needs intermittent senior living care, physical therapy and/or speech therapy, or continues to need occupational therapy. The patient is under my care, and I have initiated the establishment of the plan of care. The patient will be followed by a physician who will periodically review the plan of care. Time Spent With Patient Time: Total time managing care of this patient today ____ minutes.
--- NOTE | 2024-05-23 14:09 | MHC.CM.PN ---
CM MET WITH PT TO DISCUSS DC PLAN PT IS REFUSING STR STATING HE WANTS TO GO HOME AND IS WILLING TO HAVE VNA SERVICES HE IS AWARE HE WILL HAVE NEW HOME O2 ARRANGED PRIOR TO DC PT WILL DC HOME TODAY WITH JEFFRY VILLALPANDOA FOR PT AND SN
[2024-05-24 08:27] LABS: Legionella Ag Urine Not Detected (Not Detected)
== END 2024-05-23 15:50 | disposition home health service (06) | DRG 193 ==
LOC: HO.ED 08:28 → HO.EDOVER 10:14 → HO.S3 05-16 00:12 → HO.EDOVER 05-16 00:41 → HO.IMC 05-16 04:22
PROVIDERS: Emergency Medicine; Family Medicine; Hospitalist; Admitting Provider Physician Assistant; Emergency Provider Student in an Organized Health Care Education/Training Program; PCP Family Medicine; Visit Provider Physician Assistant Medical
DX: J18.9 Pneumonia, unspecified organism (principal); J96.01 Acute respiratory failure with hypoxia; J44.0 Chronic obstructive pulmonary disease with (acute) lower respiratory infection; J44.1 Chronic obstructive pulmonary disease with (acute) exacerbation; M86.272 Subacute osteomyelitis, left ankle and foot; J45.901 Unspecified asthma with (acute) exacerbation; E11.69 Type 2 diabetes mellitus with other specified complication; E87.6 Hypokalemia; I49.1 Atrial premature depolarization; E11.51 Type 2 diabetes mellitus with diabetic peripheral angiopathy without gangrene; N40.0 Benign prostatic hyperplasia without lower urinary tract symptoms; G47.33 Obstructive sleep apnea (adult) (pediatric); E11.65 Type 2 diabetes mellitus with hyperglycemia; I25.10 Atherosclerotic heart disease of native coronary artery without angina pectoris; Z20.822 Contact with and (suspected) exposure to COVID-19; Z87.891 Personal history of nicotine dependence; Z79.82 Long term (current) use of aspirin; Z79.84 Long term (current) use of oral hypoglycemic drugs; Z79.899 Other long term (current) drug therapy
CPT/HCPCS: 0241U; 36415; 71046; 71275; 80048; 80053; 82947; 83735; 83880; 84145; 84484; 85007; 85025; 85027; 87040; 87070; 87205; 87449; 87633; 87640; 87641; 87899; 93005; 93971; 94640; 94660; 97116; 97161; 97530; 99285; J0696; J0878; J1650; J1940; J1956; J2919; Q9967

== ENCOUNTER → 2024-05-15 09:44 | Outpatient (BNV) | payer MEDICARE, SELFPAY | PROVIDERS: Admitting Provider Physician Assistant; Emergency Provider Student in an Organized Health Care Education/Training Program; PCP Family Medicine; Visit Provider Internal Medicine Pulmonary Disease | DX: J44.0 Chronic obstructive pulmonary disease with (acute) lower respiratory infection (principal); J18.9 Pneumonia, unspecified organism; J96.01 Acute respiratory failure with hypoxia | CPT/HCPCS: 99222 ==

== ENCOUNTER → 2024-05-15 09:44 | Outpatient (BNV) | payer MEDICARE, SELFPAY | PROVIDERS: Admitting Provider Physician Assistant; Emergency Provider Student in an Organized Health Care Education/Training Program; PCP Family Medicine; Visit Provider Internal Medicine | DX: J96.01 Acute respiratory failure with hypoxia (principal); R09.02 Hypoxemia; M86.9 Osteomyelitis, unspecified | CPT/HCPCS: 99222 ==

== ENCOUNTER → 2024-05-15 09:44 | Outpatient (BNV) | payer MEDICARE, SELFPAY | PROVIDERS: Admitting Provider Physician Assistant; Emergency Provider Student in an Organized Health Care Education/Training Program; PCP Family Medicine; Visit Provider Family Medicine | DX: J44.0 Chronic obstructive pulmonary disease with (acute) lower respiratory infection (principal); R09.02 Hypoxemia; M86.9 Osteomyelitis, unspecified; J18.9 Pneumonia, unspecified organism | CPT/HCPCS: 99222; 99232; 99239; 99499; G0180 ==

== ENCOUNTER 2024-06-10 08:44 | Outpatient (AMB) | payer MEDICARE, SELFPAY ==
--- NOTE | 2024-06-10 08:44 | A.OFFVIS_ITS ---
Vital Signs 06/10/24 09:17 Height 5 ft 8 in Weight 205 lb 2 oz BMI 31.2 BP 132/56 L Blood Pressure Location Rt brachial Position Sitting Pulse 75 Pulse Source Pulse Oximeter Pulse Oximetry (%) 95 Oxygen Delivery Method Room Air Intake Visit Reasons: Hypoxia/COPD/Pneumonia (ER FU [facility]) Allergies SADI Inhibitors [SADI INHIBITORS] Allergy (Unknown, Verified 06/10/24 09:22) FACIAL SWELLING lisinopril [LISINOPRIL] Allergy (Unknown, Verified 06/10/24 09:22) FACIAL SWELLING, hives, lip edema oxycodone [From PERCOCET] Allergy (Unknown, Verified 06/10/24 09:22) JOINT STIFFNESS peanut [PEANUTS] Allergy (Unknown, Verified 06/10/24 09:22) SWELLING,THROAT,HIVES HPI HPI Hypoxia/COPD/Pneumonia (ER FU [facility]): Details: Taqueria is a pleasant 78-year-old male, former smoker, 40 pyh quit 30 years ago, with underlying COPD, asthma, MISTY on CPAP, hypertension, diabetes, coronary artery disease and hyperlipidemia. He was referred by the [facility] ED after recent admission 05/15-05/23 for acute respiratory failure with hypoxia secondary to bilateral multifocal pneumonia. He initially presented to the ED with shortness of breath, productive cough with brown sputum, and orthopnea, using albuterol MDI frequently with suboptimal effect along with Breztri. He was treated with IV Solu-Medrol, doxycycline and ceftriaxone. Ultimately he was switched to Levaquin due to lack of improvement. Urinary antigens for Legionella pending and pneumococcus negative; respiratory pathogen PCR panel negative, MRSA swab nega tive, Blood cultures negative. During this admission he was also treated for osteomyelitis of left great toe with daptomycin via PICC line. He has an outpatient evaluation with ID tomorrow. He ultimately discharged with prednisone taper, Levaquin p.o. times 14 days as well as 2 L of supplemental oxygen at rest and 4 L with ambulation. He was also discharged with physical therapy and VNA services. He reports last hospital admission related to respiratory distress/pneumonia was 10+ years ago. Since discharge he reports significant improvement in symptoms, continues with intermittent productive cough with clear sputum and feels his dyspnea is back to baseline, has not required albuterol since discharge. He denies wheezing, chest tightness or chest congestion. He denies fevers or chills. He reports asthma since childhood, never requiring intubation. He denies seasonal allergies. He denies any pertinent family history. 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 He reports h/o severe MISTY maintained on CPAP therapy x 10+ years. Since discharge he has been using 2L supplemental oxygen with CPAP therapy. DME is [facility]. COUNTS INCLUDE 234 BEDS AT THE [facility] Medical History Hypokalemia COVID Benign prostatic hyperplasia with urinary obstruction MISTY on CPAP Bifascicular block Atherosclerotic cardiovascular disease COPD (chronic obstructive pulmonary disease) Carotid stenosis Hypertension Diabetes Hypercholesteremia Surgical History H/O colonoscopy Hx of elbow surgery History of eyelid surgery S/P TURP (status post transurethral resection of prostate) (~2019) Status post carotid surgery Hx of cataract Family History Father CVD (cardiovascular disease) Mother No problems noted. Sister Cancer Sister Cancer Social History Household Members: None Housing: House Do you presently have visiting nurse or other home services: Yes Alcohol intake: current Alcohol intake frequency: a few times a week Comment: pt. is ambulatory, steady on foot. Patient Tobacco Use Status: Former Tobacco user e-Cigarette/Vaping Use: Never Used Second Hand Smoke Exposure: No Substance Use Type: Prescription Drugs Advance Directives Date on File: 04/27/24 service: No Current occupational status: retired Current occupational exposures/hazards: No Cognitive needs: No Hearing needs: No Vision needs: No Review of Systems Const Denies chills, Denies excessive sweating, Denies fever(s), Denies headache(s) and Denies night sweats Eyes Denies dry eyes, Denies irritation and Denies itchy eyes ENT Reports Normal hearing present, Denies headache(s), Denies nasal congestion, Denies nasal discharge, Denies post nasal drip and Denies sore throat Card Denies chest pain, Denies chest pain at rest, Denies chest pain with activity, Denies claudication, Denies leg edema, Denies orthopnea and Denies paroxysmal nocturnal dyspnea Resp Denies chest congestion, Denies excessive phlegm production, Denies pain on inspiration, Denies pain with cough, Denies stridor and Denies wheezing Musc Denies myalgias Neuro Reports Normal hearing present and Denies headache(s) Endo Denies excessive sweating Barry/Lymph Denies lymphadenopathy Aller/Immun Denies itchy eyes, Denies seasonal rhinorrhea and Denies wheezing Physical Exam Vital Signs: Last Vital Signs Pulse 75 06/10/24 09:17 BP 132/56 L 06/10/24 09:17 Pulse Ox 95 06/10/24 09:17 Oxygen Delivery Method Room Air 06/10/24 09:17 BMI result Body Mass Index 31.2 Const General: cooperative, healthy appearing, comfortable, no acute distress, well developed and alert Nutritional Appearance: obese Orientation/consciousness: patient oriented x3 Limitations: no limitations HEENT Head: Yes normal to inspection, Yes normocephalic and Yes atraumatic Ears: hearing grossly normal bilaterally and external ears normal Eyes General: appearance normal, both eyes and all related structures Eyelids: Yes eyelids normal Sclerae: sclerae normal EOM: EOMs intact bilaterally Neck Neck: Yes normal visual inspection and Yes no lymphadenopathy Lymphatic: no lymphadenopathy noted Chest Chest palpation & inspection: normal inspection of the chest Resp Effort & Inspection: normal respiratory effort, able to speak in complete sentences, no audible wheezes, no cough, no stridor, not tachypneic, no tripod positioning and no use of accessory muscles Auscultation: diminished lung sounds Cardio Jugular venous distension: no JVD Rate: regular rate Rhythm: regular rhythm Skin Other: warm, dry General skin exam: no rashes or lesions noted Neuro General: patient oriented x3 Cranial nerves: Yes Normal hearing present Cognition (Neuro): normal cognition Gait exam (Neuro): Normal gait present Extrem General: Yes normal to inspection, Yes capillary refill normal, Yes no clubbing, cyanosis or edema and Yes no pedal edema Psych Appearance: grossly normal and well kempt Speech and movement: Normal speech and movement present and Clear speech present Affect: normal affect Attitude: cooperative Thought process: Normal thought process present Thought content: Normal thought content present Insight: Good insight present (Psych) Judgement: Good judgement present (Psych) Results Reviewed Results Reviewed: [address] [address] [address] Scan Report Signed Patient: Taqueria Adkins MR#: [id number] : 1945 Acct:[id number] Age/Sex: 78 / M ADM Date: 05/15/24 Loc: [facility] 485-[address]: Laure Bose MD Ordering Physician: Laure Bose MD Date of Service: 05/18/24 Procedure(s): CT angio chest PE protocol Accession Number(s): [id number] cc: Laure Bose MD; Denis Diehl MD~ EXAMINATION: CT ANGIOGRAM OF THE CHEST WITH AND WITHOUT CONTRAST (CT PULMONARY ANGIOGRAM FOR PE) CLINICAL INFORMATION: Hypoxia. COMPARISON: Chest radiograph 05/15/2024. CTA chest 08/14/2022. TECHNIQUE: Multidetector volumetric imaging was performed of the chest following the administration of 65 mL Omnipaque 350 intravenous contrast. No contrast reaction reported Sagittal, coronal, and MIP oblique sagittal (through the chest only) reformatted images were obtained on the CT workstation, uploaded to PACS, and reviewed. Total exam dose-length product 586 mGy-cm This CT examination was performed using dose optimization techniques as appropriate, variously including the following: *Automated exposure control *Adjustment of mA and/or kV according to patient size (this includes techniques or standardized protocols for targeted exams where dose is matched to indication/reason for exam; i.e. extremities or head) *Use of iterative reconstruction technique FINDINGS: QUALITY OF STUDY/CONTRAST BOLUS: Suboptimal. PULMONARY ARTERIES: Evaluation is limited due to motion multifocal airspace opacities. No central pulmonary emboli. No discrete large proximal segmental pulmonary emboli. THORACIC AORTA: Moderate to severe atherosclerotic disease. Normal caliber of the abdominal aorta. LUNG: Multifocal groundglass and consolidative airspace opacities with admixed smooth interlobular septal thickening. Background of emphysema and peripheral reticulation which could indicate some degree of fibrosis. Central airways are patent. Evaluation of pulmonary nodules is essentially nondiagnostic due to multifocal airspace opacities. PLEURA: Trace bilateral pleural fluid. No pneumothorax. MEDIASTINUM: Normal heart size. No pericardial effusion. No evidence of septal bowing or right heart strain. Normal appearance of the thyroid gland. New mediastinal and hilar lymphadenopathy, for example 1.4 cm short axis aortopulmonary lymph node (6:195) and 1.4 cm short axis right hilar lymph node (6:228). Severe multivessel coronary artery calcifications. CHEST WALL/AXILLA: No axillary or internal mammary lymphadenopathy. OSSEOUS STRUCTURES: No acute or suspicious osseous abnormality. UPPER ABDOMEN: Unchanged 1.6 cm right adrenal nodule compared to 08/14/2022, most suggestive of an adenoma, for which no imaging follow-up is recommended. CT/CT angio chest PE protocol IMPRESSION: 1. Evaluation is limited due to motion and multifocal airspace opacities. However, accounting for these limitations, there is no evidence of central pulmonary emboli nor discrete large proximal segmental pulmonary emboli. 2. Extensive multifocal consolidative and groundglass opacities suspicious for a severe atypical pneumonia, limiting evaluation of underlying nodules/masses. Recommend short-term follow-up CT chest to rule out underlying occult malignancy and ensure resolution. 3. Trace bilateral pleural fluid. 4. Background of emphysema and peripheral reticulation which could indicate some degree of fibrosis. 5. New mediastinal and hilar lymphadenopathy, most likely reactive in the context of the airspace opacities. Attention on follow-up in future examinations recommended. 6. Severe multivessel coronary calcifications. VTE: indeterminate. Electronically signed by: Devika Prater MD 05/18/2024 01:40 PM EDT Dictated By: Devika Prater Signed By: <Electronically signed by Devika Prater in OV> 05/18/24 1340 DD/ 1219 TD/TT: 05/18/24 1219 Audiometrist: Assessment & Plan Assessment & Plan (1) COPD (chronic obstructive pulmonary disease): Code(s): J44.9 - Chronic obstructive pulmonary disease, unspecified Category: Medical Qualifiers: COPD type: COPD with acute lower respiratory infection Qualified Code(s): J44.0 - Chronic obstructive pulmonary disease with (acute) lower respiratory infection (2) MISTY on CPAP: Code(s): G47.33 - Obstructive sleep apnea (adult) (pediatric); Z99.89 - Dependence on other enabling machines and devices Category: Medical (3) History of acute respiratory failure: Code(s): Z87.09 - Personal history of other diseases of the respiratory system Category: Medical (4) History of recent pneumonia: Code(s): Z87.01 - Personal history of pneumonia (recurrent) Category: Medical Plan Taqueria presents after recent hospitalizations for acute respiratory failure with hypoxia secondary to multifocal pneumonia. He has completed levaquin and correa s two more days left of prednisone. Respiratory exam unremarkable today and he reports significant improvement in symptoms since discharge. He is aware to call office if symptoms recur. Advised to continue Breztri and albuterol PRN. 6MWT performed today, 500 yards completed comfortably, maintained 92-94% on room air, lowest 91% HR max 100 bpm. Per 6MWT does not require supplemental oxygen at this time however uses 2L at NOC with CPAP. Will send for overnight oximetry on room air, on CPAP, to assess need for supplemental oxygen. Given multifocal bilateral pneumonia on prior chest CT, will send for repeat chest CT for resolution in 6-8 weeks. All questions were answered and patient is in agreement of plan. Will follow-up to review results overnight oximetry and chest CT, or sooner if neede d. Orders: Orders Overnight Pulse Oximetry Today G47.34 - Idiopathic sleep related nonobstructive alveolar hypoventilation CT chest wo IV con 8 Weeks Z87.01 - Personal history of pneumonia (recurrent) Coding Level of Care Code New Pt Level 4 (03206) Complex EM visit Add On G2211 Diagnoses Chronic obstructive pulmonary disease with acute lower respiratory infection J44.0 COPD type: COPD with acute lower respiratory infection MISTY on CPAP G47.33; Z99.89 History of acute respiratory failure Z87.09 History of recent pneumonia Z87.01
[2024-06-10 09:17] VITALS: BP 132/56; PULSE 75; O2SAT 95; BMI 31.2
== END 2024-06-10 09:55 | disposition home or self-care (01) ==
PROVIDERS: PCP Family Medicine; Referring Provider Family Medicine; Visit Provider Nurse Practitioner Family
DX: J44.0 Chronic obstructive pulmonary disease with (acute) lower respiratory infection (principal); G47.33 Obstructive sleep apnea (adult) (pediatric); Z99.89 Dependence on other enabling machines and devices; Z87.09 Personal history of other diseases of the respiratory system; Z87.01 Personal history of pneumonia (recurrent)
CPT/HCPCS: 99204; 99214; G2211

== ENCOUNTER → 2024-06-10 08:44 | Outpatient (BNVA) | payer MEDICARE, SELFPAY | PROVIDERS: PCP Family Medicine; Referring Provider Family Medicine; Visit Provider Nurse Practitioner Family | DX: J96.01 Acute respiratory failure with hypoxia (principal); J44.0 Chronic obstructive pulmonary disease with (acute) lower respiratory infection; G47.33 Obstructive sleep apnea (adult) (pediatric); Z87.01 Personal history of pneumonia (recurrent); Z99.89 Dependence on other enabling machines and devices; Z99.81 Dependence on supplemental oxygen | CPT/HCPCS: 99202 ==

== ENCOUNTER 2024-06-11 10:28 | Outpatient (AMB) | payer MEDICARE, SELFPAY ==
--- NOTE | 2024-06-11 10:45 | A.OFFPC_ITS ---
Vital Signs 06/11/24 10:47 Height 5 ft 8 in Weight 207 lb 4 oz BMI 31.5 BP 123/60 Blood Pressure Location Rt brachial Position Sitting Respiration 14 Pulse 82 Pulse Source Pulse Oximeter Temp 97.9 F Temp Source Temporal Artery Scan Pulse Oximetry (%) 95 Oxygen Delivery Method Room Air Intake Visit Reasons: Discharge from [facility] – [place] Intake Note: ed dc TCM Allergies SADI Inhibitors [SADI INHIBITORS] Allergy (Unknown, Verified 06/11/24 10:47) FACIAL SWELLING lisinopril [LISINOPRIL] Allergy (Unknown, Verified 06/11/24 10:47) FACIAL SWELLING, hives, lip edema oxycodone [From PERCOCET] Allergy (Unknown, Verified 06/11/24 10:47) JOINT STIFFNESS peanut [PEANUTS] Allergy (Unknown, Verified 06/11/24 10:47) SWELLING,THROAT,HIVES Tobacco use date assessed: 10/04/23 Dental Screening Dental Screen Date: 10/04/23 HPI Discharge from [facility] – [place] HPI Details Admit?date?05/15/2024 Discharge?date?05/23/2024 Presented to ED and was being treated for osteomyelitis L great toe with daptomycin via PICC line - had presented to ED with c/o SOB, cough, few episodes of dark brown sputum and dry mouth for past 3 days. Plan of treatment was to complete 14 days of levofloxacin as well as complete treatment for pneumonia. Was qualified for 2 L of supplemental oxygen. Blood pressure today 123/60, 82p. He states he is unsure if he is taking chlorthalidone. Had been put on hold while he was in the hospital. He is on hydralazine 50mg, amlodopine 10mg daily. TCM TCM Information Date of Discharge 05/29/24 Discharged From [facility] Interactive Contact Date (Reference documentation from this date) 06/11/24 FORMERLY [facility] Medical History Hypokalemia COVID Benign prostatic hyperplasia with urinary obstruction MISTY on CPAP Bifascicular block Atherosclerotic cardiovascular disease COPD (chronic obstructive pulmonary disease) Carotid stenosis Hypertension Diabetes Hypercholesteremia Surgical History H/O colonoscopy Hx of elbow surgery History of eyelid surgery S/P TURP (status post transurethral resection of prostate) (~2020) Status post carotid surgery Hx of cataract Family History Father CVD (cardiovascular disease) Mother No problems noted. Sister Cancer Sister Cancer Social History Household Members: None Housing: House Do you presently have visiting nurse or other home services: Yes Alcohol intake: current Alcohol intake frequency: a few times a week Comment: pt. is ambulatory, steady on foot. Patient Tobacco Use Status: Former Tobacco user e-Cigarette/Vaping Use: Never Used Second Hand Smoke Exposure: No Substance Use Type: Prescription Drugs Advance Directives Date on File: 04/27/24 service: No Current occupational status: retired Current occupational exposures/hazards: No Cognitive needs: No Hearing needs: No Vision needs: No Questionnaire PHQ-9 Over the last 2 weeks, how often have you been bothered by any of the following problems? 1. Little interest or pleasure in doing things: not at all 2. Feeling down, depressed, or hopeless: not at all 3. Trouble falling or staying asleep, or sleeping too much: not at all 4. Feeling tired or having little energy: not at all 5. Poor appetite or overeating: not at all 6. Feeling bad about yourself - or that you are a failure or have let yourself or your family down: not at all 7. Trouble concentrating on things, such as reading the newspaper or watching television: not at all 8. Moving or speaking so slowly that other people could have noticed. Or the opposite - being so fidgety or restless that you have been moving around a lot more than usual: not at all 9. Thoughts that you would be better off or of hurting yourself in some way: not at all Total score: 0 Source: Developed by Drs. Gary Damian, Elo Najera, Martin Ambrocio and colleagues, with an educational daina from [employer]. Thrive Questionnaire Date Thrive assessed: 05/16/24 I am a: Patient What is your living situation today?: I have a steady place to live Within the past 12 months, did the food you bought not last and you didn't have the money to get more?: Never true Within the past 12 months, did you worry whether your food would run out before you got money to buy more?: Never true Do you have trouble paying for medicines?: No Do you have trouble getting transportation to medical appointments?: No Do you have trouble paying your heating and electricity bill?: No Do you have trouble taking care of your child, family member or friend?: No Do you have trouble with day-to-day activities such as bathing, preparing meals, shopping, managing finances, etc.?: No Are you currently unemployed and looking for a job?: No Are you interested in more education?: No Please select the resources that you would like help with: None Currently or been in a relationship where the following occur: No concerns reported THRIVE Score: 0 AUDIT C Alcohol Use Questionnaire (AUDIT-C) 1. How often do you have a drink containing alcohol?: Monthly or less Total Score: 1 RUDY-7 AMB Questionnaire RUDY-7 Date RUDY - 7 assessed: 10/04/23 Feeling nervous, anxious, or on edge: 0 = Not at all Not being able to stop or control worryin = Not at all Worrying too much about different things: 0 = Not at all Trouble relaxin = Not at all Being so restless that it is hard to sit still: 0 = Not at all Becoming easily annoyed or irritable: 0 = Not at all Feeling afraid as if something awful might happen: 0 = Not at all Total RUDY-7 score (0-4 normal; 5-9 mild; 10-14 moderate; 15-21 severe): 0 Source: Developed by Drs. Gary Damian, Elo Najera, Martin Ambrocio and colleagues, with an educational daina from [employer]. Review of Systems Const Denies chills, Denies fatigue, Denies fever(s), Denies headache(s) and Denies weakness ENT Denies dizziness and Denies headache(s) Card Denies dyspnea Resp Denies cough, Denies dyspnea, Denies wheezing and Denies other (shortness of breath) Musc Denies numbness and Denies tingling Neuro Denies dizziness, Denies headache(s), Denies numbness, Denies tingling and Denies weakness Psych Denies anxiety and Denies depression Endo Denies fatigue Aller/Immun Denies wheezing Physical exam (Primary Care) Vital Signs: Last Vital Signs Temp 97.9 F 06/11/24 10:47 Pulse 82 06/11/24 10:47 Resp 14 06/11/24 10:47 BP 123/60 06/11/24 10:47 Pulse Ox 95 06/11/24 10:47 Oxygen Delivery Method Room Air 06/11/24 10:47 BMI result Body Mass Index 31.5 Tobacco/Smoking Status: Tobacco use Status Tobacco use date assessed 10/04/23 06/11/24 10:50 Patient Tobacco Use Status Former Tobacco user 06/11/24 10:50 e-Cigarette/Vaping Use Never Used 06/11/24 10:50 PHQ-9: PHQ-9 Score PHQ-9: Total score 0 06/11/24 10:50 Thrive Assessment: Date of Thrive Assessment Date Thrive assessed 05/16/24 06/11/24 10:50 Currently or been in a relationship where the following occur: No concerns reported Const General: well developed; No acute distress Nutritional Appearance: well nourished Orientation/consciousness: patient oriented x3 HENTN Head: Yes normocephalic and Yes atraumatic Eyes General: appearance normal, both eyes and all related structures Pupils: Equal, round and reactive pupils present EOM: EOMs intact bilaterally Resp Effort & Inspection: normal respiratory effort Neuro General: patient oriented x3 and gait normal Cranial nerves: Yes Equal, round and reactive pupils present Psych Affect: normal affect Coding Level of Care Code Est Pt Level 4 (26994) Diagnoses Pneumonia J18.9 Pneumonia type: due to unspecified organism Laterality: bilateral COPD exacerbation J44.1 Hypoxia R09.02 Osteomyelitis of great toe of left foot M86.9 Essential hypertension I10 Assessment & Plan Assessment & Plan (1) Pneumonia: Code(s): J18.9 - Pneumonia, unspecified organism Category: Medical Qualifiers: Pneumonia type: due to unspecified organism Laterality: bilateral Plan: Patient?was?given?ceftriaxone?and?doxycycline?and?was?already?on?daptomycin?for? osteomyelitis. Ceftriaxo ne?and?doxycycline?were?switched?to?levofloxacin?and?daptomycin?was?stopped?due? to?pulmonary?issues. Levofloxacin?was?continued and?he?has?just?finished?this.??He?has?an?appointment?with?infectious?di sease?later?today. (2) COPD exacerbation: Code(s): J44.1 - Chronic obstructive pulmonary disease with (acute) exacerbation Category: Medical Plan: Patient?was?given?steroids?and?oxygen?therapy He?is?finishing?his?prednisone?tomorrow. He?was?on?ox ygen?and?followed?up?with?Pulmonary?Medicine.??He?is?now?on?oxygen?only?at?night . Continue?current?medication?regimen?and?finish?up?prednisone. Call?or?return?to?office?if?breathing?worsens. (3) Hypoxia: Code(s): R09.02 - Hypoxemia Category: Medical Plan: As?above?patient?was?discharged?with?supplemental?oxygen;?2?L?at?rest?and?4?L?wi th?ambulation/exertion Now?on?supplemental?oxygen?at?night Follow-up?with?Pulmonary?Medicine?as?recommended (4) Osteomyelitis of great toe of left foot: Code(s): M86.9 - Osteomyelitis, unspecified Category: Medical Plan: Had?been?on?daptomycin.??This?was?changed?during?his?hospital?stay?and?he?has?be en?discharged?on?levofloxacin and?finished?this. Has?appointment?with?infectious?disease?today (5) Essential hypertension: Code(s): I10 - Essential (primary) hypertension Category: Medical Plan: Chlorthalidone?has?been?put?on?hold?while?he?has?been?in?the?hospital. Blood?pressure?today?123/60?shows?good?control?on?hydralazine?and?amlodipine. Patient?says?he?is?back?on?all?of?his?medications?so?it?is?unclear?if?he?is?taki ng?chlorthalidone?or?not. No?changes?to?current?medication?regimen. If?chlorthal idone?has?been?held?he?will?continue?to?do?so.??If?he?is?taking?it?he?will?keshia nue?to?do?so. He?will?call?today?to?let?us?know?if?he?is?taking?chlorthalidone?or?not?and?we?c an?update?his?medication?list. Will?continue?to?monitor.
[2024-06-11 10:47] VITALS: BP 123/60; PULSE 82; RESP 14; TEMP 36.6; O2SAT 95; BMI 31.5
== END 2024-06-11 13:31 | disposition home or self-care (01) ==
PROVIDERS: PCP Family Medicine; Visit Provider Family Medicine
DX: J18.9 Pneumonia, unspecified organism (principal); J44.1 Chronic obstructive pulmonary disease with (acute) exacerbation; R09.02 Hypoxemia; M86.9 Osteomyelitis, unspecified; I10 Essential (primary) hypertension

== ENCOUNTER → 2024-06-11 10:28 | Outpatient (BNVA) | payer MEDICARE, SELFPAY | PROVIDERS: PCP Family Medicine; Visit Provider Family Medicine | DX: J44.0 Chronic obstructive pulmonary disease with (acute) lower respiratory infection (principal); J18.9 Pneumonia, unspecified organism; J44.1 Chronic obstructive pulmonary disease with (acute) exacerbation; M86.9 Osteomyelitis, unspecified; I10 Essential (primary) hypertension; R09.02 Hypoxemia | CPT/HCPCS: 96127; 99212 ==

== ENCOUNTER 2024-06-11 13:08 | Outpatient (AMB) | payer MEDICARE, SELFPAY ==
--- NOTE | 2024-06-11 13:09 | MHC.OFFVIS ---
Vital Signs 06/11/24 13:36 Height 5 ft 8 in Weight 209 lb BMI 31.8 Pulse 97 Pulse Source Pulse Oximeter Temp 98.9 F Temp Source Oral Pulse Oximetry (%) 96 Oxygen Delivery Method Room Air Intake [place] [facility] [place] Allergies SADI Inhibitors [SADI INHIBITORS] Allergy (Unknown, Verified 06/11/24 13:38) FACIAL SWELLING lisinopril [LISINOPRIL] Allergy (Unknown, Verified 06/11/24 13:38) FACIAL SWELLING, hives, lip edema oxycodone [From PERCOCET] Allergy (Unknown, Verified 06/11/24 13:38) JOINT STIFFNESS peanut [PEANUTS] Allergy (Unknown, Verified 06/11/24 13:38) SWELLING,THROAT,HIVES HPI [place] [facility] [place]: Details: He has had left great toe OM. 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 He has improved respiratory function. [facility] Medical History Hypokalemia COVID Benign prostatic hyperplasia with urinary obstruction MISTY on CPAP Bifascicular block Atherosclerotic cardiovascular disease COPD (chronic obstructive pulmonary disease) Carotid stenosis Hypertension Diabetes Hypercholesteremia Surgical History H/O colonoscopy Hx of elbow surgery History of eyelid surgery S/P TURP (status post transurethral resection of prostate) (~2019) Status post carotid surgery Hx of cataract Family History Father CVD (cardiovascular disease) Mother No problems noted. Sister Cancer Sister Cancer Social History Household Members: None Housing: House Do you presently have visiting nurse or other home services: Yes Alcohol intake: current Alcohol intake frequency: a few times a week Comment: pt. is ambulatory, steady on foot. Patient Tobacco Use Status: Former Tobacco user e-Cigarette/Vaping Use: Never Used Second Hand Smoke Exposure: No Substance Use Type: Prescription Drugs Advance Directives Date on File: 04/27/24 service: No Current occupational status: retired Current occupational exposures/hazards: No Cognitive needs: No Hearing needs: No Vision needs: No Review of Systems Const All systems reviewed & are unremarkable except as noted in HPI and below Physical Exam Vital Signs: Last Vital Signs Temp 98.9 F 06/11/24 13:36 Pulse 97 06/11/24 13:36 Pulse Ox 96 06/11/24 13:36 Oxygen Delivery Method Room Air 06/11/24 13:36 BMI result Body Mass Index 31.8 Const General: cooperative Orientation/consciousness: patient oriented x3 HEENT Head: Yes normal to inspection Mouth: Normal oral and palatal mucosa present Eyes General: appearance normal, both eyes and all related structures Pupils: Equal, round and reactive pupils present Resp Effort & Inspection: normal respiratory effort Cardio Rate: regular rate Rhythm: regular rhythm GI Palpation (GI): Soft to palpation and nontender General: Yes no CVA tenderness Back/Spine/Pelvis Back: no CVA tenderness Skin General skin exam: no rashes or lesions noted Neuro General: patient oriented x3 Cranial nerves: Yes CN's II-XII intact bilaterally and Yes Equal, round and reactive pupils present Extrem General: Yes normal to inspection Psych Appearance: grossly normal Assessment & Plan Assessment & Plan (1) Hypoxia: Comment: Finish Levaquin for 14 days. Code(s): R09.02 - Hypoxemia Category: Medical Plan: na Coding Level of Care Code Est Pt Level 3 (56747) Diagnoses Hypoxia R09.02
[2024-06-11 13:36] VITALS: PULSE 97; TEMP 37.2; O2SAT 96; BMI 31.8
== END 2024-06-11 15:50 | disposition home or self-care (01) ==
LOC: HO.HID 13:08
PROVIDERS: PCP Family Medicine; Visit Provider Internal Medicine
DX: R09.02 Hypoxemia (principal)
CPT/HCPCS: 99213

== ENCOUNTER 2024-06-25 08:50 | Outpatient (AMB) | payer MEDICARE, SELFPAY ==
--- NOTE | 2024-06-25 09:02 | MHC.OFFVIS ---
Vital Signs 06/25/24 09:04 Height 5 ft 8 in Weight 209 lb BMI 31.8 Intake Visit Reasons: 1 yr f/u for MISTY Intake Note: Patient presents for folow up Allergies SADI Inhibitors [SADI INHIBITORS] Allergy (Unknown, Verified 06/25/24 09:04) FACIAL SWELLING lisinopril [LISINOPRIL] Allergy (Unknown, Verified 06/25/24 09:04) FACIAL SWELLING, hives, lip edema oxycodone [From PERCOCET] Allergy (Unknown, Verified 06/25/24 09:04) JOINT STIFFNESS peanut [PEANUTS] Allergy (Unknown, Verified 06/25/24 09:04) SWELLING,THROAT,HIVES HPI Comments Details: 78 y/o male patient presents for follow up of MISTY on CPAP. He is on CPAP at 20 cmH2O with oxygen 2LPM The CPAP compliance and therapy response (04/12-07/13) reviewed. The usage days 87% and the average usage hours 7 hrs 50 min. The AHI was 5.5/hr, the apnea index was central 0.9 and obstructive 1.8 PFSH Medical History Hypokalemia COVID Benign prostatic hyperplasia with urinary obstruction MISTY on CPAP Bifascicular block Atherosclerotic cardiovascular disease COPD (chronic obstructive pulmonary disease) Carotid stenosis Hypertension Diabetes Hypercholesteremia Surgical History H/O colonoscopy Hx of elbow surgery History of eyelid surgery S/P TURP (status post transurethral resection of prostate) (~2019) Status post carotid surgery Hx of cataract Family History Father CVD (cardiovascular disease) Mother No problems noted. Sister Cancer Sister Cancer Social History Household Members: None Housing: House Do you presently have visiting nurse or other home services: Yes Alcohol intake: current Alcohol intake frequency: a few times a week Comment: pt. is ambulatory, steady on foot. Patient Tobacco Use Status: Former Tobacco user e-Cigarette/Vaping Use: Never Used Second Hand Smoke Exposure: No Substance Use Type: Prescription Drugs Advance Directives Date on File: 04/27/24 service: No Current occupational status: retired Current occupational exposures/hazards: No Cognitive needs: No Hearing needs: No Vision needs: No Physical Exam Vital Signs: BMI result Body Mass Index 31.8 Const General: cooperative Orientation/consciousness: patient oriented x3 Resp Effort & Inspection: normal respiratory effort and able to speak in complete sentences Neuro General: patient oriented x3 and gait normal Cranial nerves: Yes CN's II-XII intact bilaterally Cognition (Neuro): normal cognition Psych Appearance: grossly normal Mental Status: mental status grossly normal Speech and movement: Normal speech and movement present Assessment & Plan Assessment & Plan (1) MISTY (obstructive sleep apnea): Code(s): G47.33 - Obstructive sleep apnea (adult) (pediatric) Category: Medical Plan Continue CPAP at 20 cmH2O with no ramp. Stressed compliance, use CPAP nightly and more than 4 hours. Wt reduction advised. Coding Level of Care Code Est Pt Level 4 (19540) Diagnoses MISTY (obstructive sleep apnea) G47.33
[2024-06-25 09:04] VITALS: BMI 31.8
== END 2024-06-25 10:03 | disposition home or self-care (01) ==
LOC: HO.HSMS 08:51
PROVIDERS: PCP Family Medicine; Visit Provider Psychiatry & Neurology Neurology
DX: G47.33 Obstructive sleep apnea (adult) (pediatric) (principal)
CPT/HCPCS: 99214

== ENCOUNTER → 2024-06-25 08:50 | Outpatient (BNVA) | payer MEDICARE, SELFPAY | PROVIDERS: PCP Family Medicine; Visit Provider Psychiatry & Neurology Neurology | DX: G47.33 Obstructive sleep apnea (adult) (pediatric) (principal); Z99.89 Dependence on other enabling machines and devices | CPT/HCPCS: 99212 ==

== ENCOUNTER → 2024-06-30 23:59 | Outpatient (BNV) | payer MEDICARE, SELFPAY | PROVIDERS: PCP Family Medicine; Visit Provider Family Medicine | DX: J18.9 Pneumonia, unspecified organism (principal); J44.0 Chronic obstructive pulmonary disease with (acute) lower respiratory infection; E11.65 Type 2 diabetes mellitus with hyperglycemia | CPT/HCPCS: G0180 ==

== ENCOUNTER 2024-07-07 10:13 | Outpatient (AMB) | payer MEDICARE, SELFPAY ==
--- NOTE | 2024-07-07 11:02 | A.OFFPC_ITS ---
Vital Signs 07/07/24 11:05 07/07/24 11:23 Height 5 ft 8 in Weight 210 lb 8 oz BMI 32.0 BP 159/69 H 147/67 H Blood Pressure Location Rt brachial Rt brachial Position Sitting Sitting Respiration 18 Pulse 90 Pulse Source Pulse Oximeter Temp 97.5 F Temp Source Temporal Artery Scan Pulse Oximetry (%) 93 Oxygen Delivery Method Room Air Intake Visit Reasons: f/u diabetes, hypertension Intake Note: f/u HTN AND DM Allergies SADI Inhibitors [SADI INHIBITORS] Allergy (Unknown, Verified 07/07/24 11:04) FACIAL SWELLING lisinopril [LISINOPRIL] Allergy (Unknown, Verified 07/07/24 11:04) FACIAL SWELLING, hives, lip edema oxycodone [From PERCOCET] Allergy (Unknown, Verified 07/07/24 11:04) JOINT STIFFNESS peanut [PEANUTS] Allergy (Unknown, Verified 07/07/24 11:04) SWELLING,THROAT,HIVES Medication List - Last Reconciled 07/07/24 by Denis Diehl MD albuterol sulfate 90 mcg/actuation 2 puffs inhalation Q4H PRN amlodipine 10 mg PO DAILY aspirin 81 mg PO DAILY blood sugar diagnostic USE DIRECTED DAILY blood sugar diagnostic (OncoscopeTouch Ultra Test strips) check blood sugar one time daily prn as directed brinzolamide-brimonidine 1-0.2 % (Simbrinza) 1 drp ophthalmic (eye) BID uxhwhzznhf-nltnbpli-wmvsevilaw 160-9-4.8 mcg/actuation (Breztri Aerosphere) 2 inhalations inhalation BID chlorthalidone 50 mg PO DAILY epinephrine (EpiPen) 0.3 mg (0.3 mL) IM Q10M PRN 30 days finasteride 5 mg PO DAILY hydralazine 50 mg PO DAILY latanoprost 0.005% 1 drp ophthalmic (eye) BEDTIME metformin 1,000 mg PO BID 90 days rosuvastatin 10 mg PO BEDTIME tamsulosin 0.4 mg PO BID Tobacco use date assessed: 10/04/23 Dental Screening Dental Screen Date: 10/04/23 HPI f/u diabetes, hypertension HPI Details 78 y/o male presents to f/u diabetes, hy pertension. A1c increased to 6.9%. Blood pressure today 159/69, 90p. He is on amlodipine 10mg daily, hydralazine 50mg. Also on chlorthalidone 50mg daily. [facility] Medical History Hypokalemia COVID Benign prostatic hyperplasia with urinary obstruction MISTY on CPAP Bifascicular block Atherosclerotic cardiovascular disease COPD (chronic obstructive pulmonary disease) Carotid stenosis Hypertension Diabetes Hypercholesteremia Surgical History H/O colonoscopy Hx of elbow surgery History of eyelid surgery S/P TURP (status post transurethral resection of prostate) (~2019) Status post carotid surgery Hx of cataract Family History Father CVD (cardiovascular disease) Mother No problems noted. Sister Cancer Sister Cancer Social History Household Members: None Housing: House Do you presently have visiting nurse or other home services: Yes Alcohol intake: current Alcohol intake frequency: a few times a week Comment: pt. is ambulatory, steady on foot. Patient Tobacco Use Status: Former Tobacco user e-Cigarette/Vaping Use: Never Used Second Hand Smoke Exposure: No Substance Use Type: Prescription Drugs Advance Directives Date on File: 04/27/24 service: No Current occupational status: retired Current occupational exposures/hazards: No Cognitive needs: No Hearing needs: No Vision needs: No Questionnaire Thrive Questionnaire Date Thrive assessed: 06/11/24 I am a: Patient What is your living situation today?: I have a steady place to live Within the past 12 months, did the food you bought not last and you didn't have the money to get more?: Never true Within the past 12 months, did you worry whether your food would run out before you got money to buy more?: Never true Do you have trouble paying for medicines?: No Do you have trouble getting transportation to medical appointments?: No Do you have trouble paying your heating and electricity bill?: No Do you have trouble taking care of your child, family member or friend?: No Do you have trouble with day-to-day activities such as bathing, preparing meals, shopping, managing finances, etc.?: No Are you currently unemployed and looking for a job?: No Are you interested in more education?: No Please select the resources that you would like help with: None Currently or been in a relationship where the following occur: No concerns reported THRIVE Score: 0 RUDY-7 AMB Questionnaire RUDY-7 Date RUDY - 7 assessed: 10/04/23 Source: Developed by Drs. Gary Damian, Elo Najera, Martin Ambrocio and colleagues, with an educational daina from [employer]. Review of Systems Const Denies chills, Denies fatigue, Denies fever(s), Denies headache(s) and Denies weakness ENT Denies dizziness and Denies headache(s) Card Denies chest pain, Denies lightheadedness, Denies dyspnea and Denies other (Palpitations) Resp Denies cough, Denies dyspnea, Denies wheezing and Denies other ( shortness of breath) Musc Denies numbness and Denies tingling Neuro Denies dizziness, Denies headache(s), Denies numbness, Denies tingling, Denies paresthesias and Denies weakness Psych Denies anxiety and Denies depression Endo Denies fatigue Aller/Immun Denies wheezing Physical exam (Primary Care) Vital Signs: Last Vital Signs Temp 97.5 F 07/07/24 11:05 Pulse 90 07/07/24 11:05 Resp 18 07/07/24 11:05 BP 159/69 H 07/07/24 11:05 Pulse Ox 93 07/07/24 11:05 Oxygen Delivery Method Room Air 07/07/24 11:05 BMI result Body Mass Index 32.0 Tobacco/Smoking Status: Tobacco use Status Tobacco use date assessed 10/04/23 07/07/24 11:02 Patient Tobacco Use Status Former Tobacco user 07/07/24 11:02 e-Cigarette/Vaping Use Never Used 07/07/24 11:02 Thrive Assessment: Date of Thrive Assessment Date Thrive assessed 06/11/24 07/07/24 11:02 Currently or been in a relationship where the following occur: No concerns reported Const General: no acute distress and well developed Nutritional Appearance: well nourished Orientation/consciousness: patient oriented x3 HENMT Head: Yes normocephalic and Yes atraumatic Eyes General: appearance normal, both eyes and all related structures Pupils: Equal, round and reactive pupils present EOM: EOMs intact bilaterally Resp Effort & Inspection: normal respiratory effort Auscultation: clear to auscultation bilaterally Cardio Rate: regular rate Rhythm: regular rhythm Heart sounds: S1 normal heart sound present, S2 normal heart sound present, no gallops, no murmurs and no rubs Neuro General: patient oriented x3 and gait normal Cranial nerves: Yes Equal, round and reactive pupils present Psych Affect: normal affect Coding Level of Care Code Est Pt Level 3 (22273) Diagnoses Diabetes type 2, controlled E11.9 Diabetes mellitus buttermaker continuous churn insulin use: without buttermaker continuous churn use Essential hypertension I10 Assessment & Plan Assessment & Plan (1) Diabetes type 2, controlled: Code(s): E11.9 - Type 2 diabetes mellitus without complications Category: Medical Qualifiers: Diabetes mellitus skilled nursing insulin use: without buttermaker continuous churn use Plan: A1c?increased?to?6.9%?which?is?still?at?goal?of?less?than?7.0% He?had?been?on?steroids?in?the?past?3?months. Continue?current?medication (2) Essential hypertension: Code(s): I10 - Essential (primary) hypertension Category: Medical Plan: Blood?pressure?still?high?after?relaxation?in?office. He?is?on?chlorthalidone,?amlodipine?and?hydralazine?once?daily There?was?some?question?of?whether?he?had?continued?chlorthalidone?at?last?visit . Blood?pressures?at?home?are?well?controlled.??Likely?some?white?coat?syndrome. No?miller es?to?his?blood?pressure?medication?regimen?today.??He?continues?to?check?regula rly?at?home?and?will?let?me?know?if?he?has?any?sustained?elevated?blood?pressure s?at?home. Medications: New epinephrine (EpiPen) for 2 doses 0.3 mg (0.3 mL) IM Q10M 30 days PRN 1 ea 2RF anaphylaxis
[2024-07-07 11:05] VITALS: BP 159/69; PULSE 90; RESP 18; TEMP 36.4; O2SAT 93; BMI 32.0
[2024-07-07 11:23] VITALS: BP 147/67
== END 2024-07-07 11:33 | disposition home or self-care (01) ==
PROVIDERS: PCP Family Medicine; Visit Provider Family Medicine
DX: E11.9 Type 2 diabetes mellitus without complications (principal); I10 Essential (primary) hypertension; E11.8 Type 2 diabetes mellitus with unspecified complications

== ENCOUNTER → 2024-07-07 10:13 | Outpatient (BNVA) | payer MEDICARE, SELFPAY | PROVIDERS: PCP Family Medicine; Visit Provider Family Medicine | DX: E11.9 Type 2 diabetes mellitus without complications (principal); I10 Essential (primary) hypertension | CPT/HCPCS: 83036; 99212 ==

== ENCOUNTER 2024-07-22 07:01 | Outpatient (REF) | payer MEDICARE, SELFPAY | END 2024-07-22 07:02 | disposition home or self-care (01) | LOC: HO.CT 07:01 | PROVIDERS: PCP Family Medicine; Visit Provider Nurse Practitioner Family | DX: Z87.01 Personal history of pneumonia (recurrent) (principal) | CPT/HCPCS: 71250 ==

== ENCOUNTER 2024-08-05 08:37 | Outpatient (AMB) | payer MEDICARE, SELFPAY ==
--- OUTSIDE RECORDS SUMMARY | 2024-08-05 08:46 | XMS_ITS | Patient Health Record ---
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 Role Phone Denis Diehl Primary Care Provider UnavailGary Duarte Unavailable [phone] ALLERGIES Allergen (clinical drug ingredient) Drug/Non Drug [...] malignant neoplasm of colon (Z12.11) Active confirmed 078401147 Problem History of adenomatous polyp of colon (Z86.010) Active confirmed 627938446 Problem Encounter for screening for malignant neoplasm of rectum (Z12.12) Active confirmed Screening fo r malignant neoplasm of rectum (627311336) Problem Long-term use of aspirin therapy (Z79.82) Active confirmed 452818218 Problem Constipation, unspecified constipation type (K59.00) Active confirmed 53943256 Problem Diverticulosis of colon (K57.30) Active confirmed Diverticulosi s of colon (316850275) PLAN OF TREATMENT Pending Test Test Name Order Date Pathology 03/19/2023 Future Test Test Name Order Date COLONOSCOPY 06/09/2011 COLONOSCOPY 11/28/2016 COLONOSCOPY 07/06/2022 Insurance Providers Payer Name Payer Address Payer Phone Subscriber Number Group Number Insured Name Patient Relationship to Insured Coverage Start Date Coverage End Date MEDICARE OF [place] [address] [place] [id number] [phone] [id number] MAX EDE Self - patient is the insured [facility] SUPPLEMENTAL PLAN [address] [place] [address] [phone] [id number] EDE SANTANA Self - patient is the insured MEDICAL (GENERAL) HISTORY Medical History History ICD Code Tubular adenomas removed in 2000, 2002, and 2005--he had a negative colonoscopy in 08/2011 except for some diverticulosis and internal hemorrhoids. Colonoscopy 02/2017 with small tubular adenomas removed. Asthma/COPD Hyperlipidemia NIDDM Hypertension He denies any history of AL, stroke, nor kidney disease Sleep apnea-uses CPAP BPH Surgical History Surgery Date(Month/Year) Cataracts/Lens implants Right hand surgery Left ankle surgery Left carotid artery 2016 TURP 2019
--- OUTSIDE RECORDS SUMMARY | 2024-08-05 08:46 | XMS_ITS ---
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
--- NOTE | 2024-08-05 08:49 | A.OFFVIS_ITS ---
Vital Signs 08/05/24 08:50 Height 5 ft 8 in Weight 214 lb 2 oz BMI 32.6 BP 148/70 H Blood Pressure Location Rt brachial Position Sitting Pulse 79 Pulse Source Pulse Oximeter Pulse Oximetry (%) 95 Oxygen Delivery Method Room Air Intake Visit Reasons: Hypoxia/COPD/Pneumonia Allergies SADI Inhibitors [SADI INHIBITORS] Allergy (Unknown, Verified 08/05/24 08:52) FACIAL SWELLING lisinopril [LISINOPRIL] Allergy (Unknown, Verified 08/05/24 08:52) FACIAL SWELLING, hives, lip edema oxycodone [From PERCOCET] Allergy (Unknown, Verified 08/05/24 08:52) JOINT STIFFNESS peanut [PEANUTS] Allergy (Unknown, Verified 08/05/24 08:52) SWELLING,THROAT,HIVES HPI HPI Hypoxia/COPD/Pneumonia: Details: Taqueria is a pleasant 78-year-old male, former smoker, 40 pyh quit 30 years ago, with underlying COPD, asthma, MISTY on CPAP, hypertension, diabetes, coronary artery disease and hyperlipidemia. He had recent admission 05/15-05/23 for acute respiratory failure with hypoxia secondary to bilateral multifocal pneumonia. He was treated with IV Solu-Medrol, doxycycline and ceftriaxone. He ultimately discharged with prednisone taper, Levaquin p.o. times 14 days as well as 2 L of supplemental oxygen at rest and 4 L with ambulation. 6MWT was performed at the last visit, patient no longer requires supplemental oxygen, however continues to use 2L NOC with CPAP. Since the last visit, respiratory symptoms have significantly improved. He reports doing well with Breztri, requiring albuterol MDI infrequently. Today he presents to review chest CT and overnight oximetry results. He denies any visits to urgent care or hospitalizations since the last visit related to respiratory distress. [facility] Medical History Hypokalemia COVID Benign prostatic hyperplasia with urinary obstruction MISTY on CPAP Bifascicular block Atherosclerotic cardiovascular disease COPD (chronic obstructive pulmonary disease) Carotid stenosis Hypertension Diabetes Hypercholesteremia Surgical History H/O colonoscopy Hx of elbow surgery History of eyelid surgery S/P TURP (status post transurethral resection of prostate) (~2019) Status post carotid surgery Hx of cataract Family History Father CVD (cardiovascular disease) Mother No problems noted. Sister Cancer Sister Cancer Social History Household Members: None Housing: House Do you presently have visiting nurse or other home services: Yes Alcohol intake: current Alcohol intake frequency: a few times a week Comment: pt. is ambulatory, steady on foot. Patient Tobacco Use Status: Former Tobacco user e-Cigarette/Vaping Use: Never Used Second Hand Smoke Exposure: No Substance Use Type: Prescription Drugs Advance Directives Date on File: 04/27/24 service: No Current occupational status: retired Current occupational exposures/hazards: No Cognitive needs: No Hearing needs: No Vision needs: No Review of Systems Const Denies chills, Denies excessive sweating, Denies fever(s), Denies headache(s) and Denies night sweats Eyes Denies dry eyes, Denies irritation and Denies itchy eyes ENT Reports Normal hearing present, Denies headache(s), Denies nasal congestion, Denies nasal discharge and Denies sore throat Card Denies chest pain, Denies chest pain at rest, Denies chest pain with activity, Denies claudication, Denies leg edema, Denies dyspnea, Denies dyspnea on exertion, Denies orthopnea and Denies paroxysmal nocturnal dyspnea Resp Denies chest congestion, Denies cough, Denies excessive phlegm production, Denies pain on inspiration, Denies pain with cough, Denies dyspnea, Denies dyspnea on exertion, Denies stridor and Denies wheezing Musc Denies myalgias Neuro Reports Normal hearing present and Denies headache(s) Endo Denies excessive sweating Barry/Lymph Denies lymphadenopathy Aller/Immun Denies itchy eyes, Denies seasonal rhinorrhea and Denies wheezing Physical Exam Vital Signs: Last Vital Signs Pulse 79 08/05/24 08:50 BP 148/70 H 08/05/24 08:50 Pulse Ox 95 08/05/24 08:50 Oxygen Delivery Method Room Air 08/05/24 08:50 BMI result Body Mass Index 32.6 Const General: cooperative, healthy appearing, comfortable, no acute distress, well developed and alert Nutritional Appearance: obese Orientation/consciousness: patient oriented x3 Limitations: no limitations HEENT Head: Yes normal to inspection, Yes normocephalic and Yes atraumatic Ears: hearing grossly normal bilaterally and external ears normal Eyes General: appearance normal, both eyes and all related structures Eyelids: Yes eyelids normal Sclerae: sclerae normal EOM: EOMs intact bilaterally Neck Neck: Yes normal visual inspection and Yes no lymphadenopathy Lymphatic: no lymphadenopathy noted Chest Chest palpation & inspection: normal inspection of the chest Resp Effort & Inspection: normal respiratory effort, able to speak in complete sentences, no audible wheezes, no cough, no stridor, not tachypneic, no tripod positioning and no use of accessory muscles Auscultation: clear to auscultation bilaterally Cardio Jugular venous distension: no JVD Rate: regular rate Rhythm: regular rhythm Skin Other: warm, dry General skin exam: no rashes or lesions noted Neuro General: patient oriented x3 Cranial nerves: Yes Normal hearing present Cognition (Neuro): normal cognition Gait exam (Neuro): Normal gait present Extrem General: Yes normal to inspection, Yes capillary refill normal, Yes no clubbing, cyanosis or edema and Yes no pedal edema Psych Appearance: grossly normal and well kempt Speech and movement: Normal speech and movement present and Clear speech present Affect: normal affect Attitude: cooperative Thought process: Normal thought process present Thought content: Normal thought content present Insight: Good insight present (Psych) Judgement: Good judgement present (Psych) Assessment & Plan Assessment & Plan (1) COPD (chronic obstructive pulmonary disease): Code(s): J44.9 - Chronic obstructive pulmonary disease, unspecified Category: Medical Qualifiers: COPD type: COPD with acute lower respiratory infection Qualified Code(s): J44.0 - Chronic obstructive pulmonary disease with (acute) lower respiratory infection (2) MISTY on CPAP: Code(s): G47.33 - Obstructive sleep apnea (adult) (pediatric); Z99.89 - Dependence on other enabling machines and devices Category: Medical (3) Nocturnal hypoxemia: Code(s): G47.34 - Idiopathic sleep related nonobstructive alveolar hypoventilation Category: Medical Plan At this time, Taqueria reports good control of respiratory symptoms on current regimen, advised to continue. Reviewed overnight oximetry and patient continues with nocturnal hypoexmia <88% for 11 minutes despite using CPAP therapy. Will send for in lab titration study as patient may need pressures adjusted due to continued hypoxia. Reviewed chest CT images which are significantly improved, near complete resolution of multifocal PNA. Will await final read from radiologist and call patient with results. All questions were answered and patient is in agreement of plan. Will follow-up to review results of in lab titration study, or sooner if needed. Orders: Orders RT PSG in-lab sleep titration Today G47.33 - Obstructive sleep apnea (adult) (pediatric), G47.34 - Idiopathic sleep related nonobstructive alveolar hypoventilation Coding Level of Care Code Est Pt Level 4 (94777) Diagnoses Chronic obstructive pulmonary disease with acute lower respiratory infection J44.0 COPD type: COPD with acute lower respiratory infection MISTY on CPAP G47.33; Z99.89 Nocturnal hypoxemia G47.34
[2024-08-05 08:50] VITALS: BP 148/70; PULSE 79; O2SAT 95; BMI 32.6
== END 2024-08-05 09:11 | disposition home or self-care (01) ==
PROVIDERS: PCP Family Medicine; Visit Provider Nurse Practitioner Family
DX: J44.0 Chronic obstructive pulmonary disease with (acute) lower respiratory infection (principal); G47.33 Obstructive sleep apnea (adult) (pediatric); Z99.89 Dependence on other enabling machines and devices; G47.34 Idiopathic sleep related nonobstructive alveolar hypoventilation
CPT/HCPCS: 99214

== ENCOUNTER → 2024-08-05 08:37 | Outpatient (BNVA) | payer MEDICARE, SELFPAY | PROVIDERS: PCP Family Medicine; Visit Provider Nurse Practitioner Family | DX: J44.0 Chronic obstructive pulmonary disease with (acute) lower respiratory infection (principal); G47.33 Obstructive sleep apnea (adult) (pediatric); G47.34 Idiopathic sleep related nonobstructive alveolar hypoventilation; Z99.89 Dependence on other enabling machines and devices | CPT/HCPCS: 99212 ==

== ENCOUNTER 2024-08-06 11:58 | Outpatient (AMB) | payer MEDICARE, SELFPAY ==
--- OUTSIDE RECORDS SUMMARY | 2024-08-06 12:01 | XMS_ITS | Clinical Summary ---
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 Active 08-20 00:00: 00 TYPE 2 DIABETES MELLITUS WITH HYPERGLYCEMI A Active 08-20 00:00: 00 ADVERSE EFFECT OF GLUCOCORT/SY NTH ANALOG, SUBS Active 08-20 00:00: 00 ACUTE RESPIRATORY FAILURE WITH HYPOXIA Active 08-20 00:00: 00 TYPE 2 DIABETES MELLITUS WITH OTHER SPECIFIED COMPLICATION Active 08-20 00:00: 00 OSTEOMYELITI S, UNSPECIFIED Active 08-20 00:00: 00 OTHER SPECIFIED CHRONIC OBSTRUCTIVE PULMONARY DISEASE Active 08-20 00:00: 00 ATHSCL HEART DISEASE OF [place] CORONARY ARTERY W/O ANG PCTRS Active 08-20 00:00: 00 ESSENTIAL (PRIMARY) HYPERTENSION Active 08-20 00:00: 00 OBESITY, UNSPECIFIED Active 08-20 00:00: 00 PURE HYPERCHOLEST EROLEMIA, UNSPECIFIED Active 08-20 00:00: 00 OBSTRUCTIVE SLEEP APNEA (ADULT) (PEDIATRIC) Active 08-20 00:00: 00 UNSPECIFIED ASTHMA WITH (ACUTE) EXACERBATION Active 08-20 00:00: 00 BIFASCICULAR BLOCK Active 08-20 00:00: 00 DETENTION (CURRENT) USE OF ASPIRIN Active 08-20 00:00: 00 CLAM DREDGER (CURRENT) USE OF INHALED STEROIDS Active 08-20 00:00: 00 CLAM DREDGER (CURRENT) USE OF ORAL HYPOGLYCEMIC DRUGS Active 08-20 00:00: 00 DETENTION (CURRENT) USE OF SYSTEMIC STEROIDS Active 08-20 00:00: 00 PERSONAL HISTORY OF COVID-19 Active 08-20 00:00: 00 BODY MASS INDEX [BMI] 31.0-31.9, ADULT Active 08-20 00:00: 00 Allergies, Adverse Reactions, Alerts Allergy Name Allergy Type Status Severity Reaction(s) Onset Date Inactive Date Treating Clinician Comments LISINOPRIL Propensity to adverse reactions Active 2023-08 22:39: 19 SADI INHIBITORS Propensity to adverse reactions Active 2023-08 22:39: 27 OXYCODONE Propensity to adverse reactions Active 2023-08 22:39: 38 Medications Ordered Medication Name Filled Medication Name Start Date Stop Date Current Medication? Ordering Clinician Indication Dosage Frequency Signature (SIG) Comments Components levofloxaci n 750 mg tablet 2023-08 00:00: 00 Yes [id number] 1 tablet DAILY 1 tablet DAILY (route: oral) Med Classific ation: Anti-Infe ctive Agents prednisone 10 mg tablet 2023-08 00:00: 00 Yes [id number] Per instruc tions DAILY Per instructio ns DAILY (route: oral) Med Classific ation: Endocrine rosuvastati n 10 mg tablet 2023-08 00:00: 00 Yes [id number] 1 tablet DAILY 1 tablet DAILY (route: oral) Med Classific ation: Cardiovas cular Therapy Agents tamsulosin 0.4 mg capsule 05-10 00:00: 00 Yes [id number] 1 capsule DAILY 1 capsule DAILY (route: oral) Med Classific ation: Genitouri nary Therapy amlodipine 10 mg tablet 05-09 00:00: 00 Yes [id number] Per instruc tions EVERY DAY Per instructio ns EVERY DAY (route: oral) Med Classific ation: Cardiovas cular Therapy Agents latanoprost 0.005 % eye drops 20 00:00: 00 Yes [id number] Per instruc tions DAILY AT BEDTIME Per instructio ns DAILY AT BEDTIME (route: ophthalmic (eye)) Med Classific ation: Ophthalmi c Agents Breztri Aerosphere 160 mcg-9mcg-4. 8mcg/actuat ion HFA aerosol inhaler 12 00:00: 00 Yes [id number] Per instruc tions TWICE A DAY Per instructio ns TWICE A DAY (route: inhalation ) Med Classific ation: Respirato ry Therapy Agents albuterol sulfate HFA 90 mcg/actuati on aerosol inhaler 2023-08 0 00:00: 00 Yes [id number] 2 puff EVERY 4 HOURS 2 puff EVERY 4 HOURS (route: inhalation ) Med Classific ation: Respirato ry Therapy Agents aspirin 81 mg tablet,radha yed release 2023-08 00:00: 00 Yes [id number] 1 tablet DAILY 1 tablet DAILY (route: oral) Med Classific ation: Hematolog ical Agents chlorthalid one 50 mg tablet 2023-08 00:00: 00 Yes [id number] 1 tablet DAILY 1 tablet DAILY (route: oral) Med Classific ation: Cardiovas cular Therapy Agents finasteride 5 mg tablet 2023-08 00:00: 00 Yes [id number] 1 tablet DAILY 1 tablet DAILY (route: oral) Med Classific ation: Genitouri nary Therapy hydralazine 50 mg tablet 2023-08 00:00: 00 Yes [id number] 1 tablet DAILY 1 tablet DAILY (route: oral) Med Classific ation: Cardiovas cular Therapy Agents metformin 1,000 mg tablet 2023-08 00:00: 00 Yes [id number] 1 tablet 2 TIMES DAILY 1 tablet 2 TIMES DAILY (route: oral) Med Classific ation: Endocrine Vital Signs Vital Name Observation Time Observation Value Commen ts Temperature 2024-06-19 13:16:00.000 97.8 [degF] Temperature 2024-06-12 09:46:00.000 98.5 [degF] Temperature 2024-06-05 12:36:00.000 98.2 [degF] Temperature 2024-06-03 10:03:00.000 98.2 [degF] Temperature 2024-05-30 09:36:00.000 98.5 [degF] Temperature 2024-05-26 10:39:00.000 97.8 [degF] BMI (%) 2024-05-26 10:39:00.000 31 kg/m2 Height 2024-05-26 10:39:00.000 68 [in_us] Pulse 2024-06-19 13:16:00.000 84 /min Pulse 2024-06-12 09:46:00.000 72 /min Pulse 2024-06-05 12:36:00.000 68 /min Pulse 2024-06-03 10:03:00.000 78 /min Pulse 2024-05-30 09:36:00.000 78 /min Pulse 2024-05-26 10:39:00.000 78 /min O2 Saturation (%) 2024-06-19 13:17:00.000 96 % O2 Saturation (%) 2024-06-12 09:46:00.000 94 % O2 Saturation (%) 2024-06-05 12:36:00.000 96 % O2 Saturation (%) 2024-06-03 10:03:00.000 96 % O2 Saturation (%) 2024-05-30 09:36:00.000 97 % O2 Saturation (%) 2024-05-26 10:39:00.000 96 % Respirations 2024-06-19 13:16:00.000 18 /min Respirations 2024-06-12 09:46:00.000 18 /min Respirations 2024-06-05 12:36:00.000 20 /min Respirations 2024-06-03 10:03:00.000 20 /min Respirations 2024-05-30 09:36:00.000 20 /min Respirations 2024-05-26 10:39:00.000 20 /min Weight (lbs) 2024-06-03 10:03:00.000 200 [lb_av] Weight (lbs) 2024-05-26 10:39:00.000 210 [lb_av] Systolic Blood Pressure 2024-06-19 13:16:00.000 126 mm [Hg] Systolic Blood Pressure 2024-06-12 09:46:00.000 120 mm [Hg] Systolic Blood Pressure 2024-06-05 12:36:00.000 128 mm [Hg] Systolic Blood Pressure 2024-06-03 10:11:00.000 118 mm [Hg] Systolic Blood Pressure 2024-05-30 09:36:00.000 128 mm [Hg] Systolic Blood Pressure 2024-05-26 10:39:00.000 120 mm [Hg] Diastolic Blood Pressure 2024-06-19 13:16:00.000 62 mm [Hg] Diastolic Blood Pressure 2024-06-12 09:46:00.000 68 mm [Hg] Diastolic Blood Pressure 2024-06-05 12:36:00.000 60 mm [Hg] Diastolic Blood Pressure 2024-06-03 10:11:00.000 60 mm [Hg] Diastolic Blood Pressure 2024-05-30 09:36:00.000 72 mm [Hg] Diastolic Blood Pressure 2024-05-26 10:39:00.000 60 mm [Hg] Plan of Treatment Planned Activity Planned Date Details Comments Future Scheduled Test SKILLED NU RSE TO EVALUATE PATIENT, IDENTIFY PRIMARY AND CO-MORBID CONDITIONS CODED PER CODING GUIDELINES, AND DEVELOP PATIENT SPECIFIC PLAN OF CARE THAT INCLUDES PATIENT GOAL FOR HOME HEALTH. [code = SKILLED NURSE TO EVALUATE PATIENT, IDENTIFY PRIMARY AND CO-MORBID CONDITIONS CODED PER CODING GUIDELINES, AND DEVELOP PATIENT SPECIFIC PLAN OF CARE THAT INCLUDES PATIENT GOAL FOR HOME HEALTH.] Future Scheduled Test SKILLED NU RSE TO REVIEW PATIENT MEDICATIONS. INSTRUCT PATIENT/CAREGIVER ON MONITORING OF EFFECTIVENESS, ADVERSE DRUG REACTIONS, SIDE EFFECTS OF ALL MEDICATIONS (PRESCRIPTION/-OTC), AND HOW AND WHEN TO REPORT PROBLEMS. [code = SKILLED NURSE TO REVIEW PATIENT MEDICATIONS. INSTRUCT PATIENT/CAREGIVER ON MONITORING OF EFFECTIVENESS, ADVERSE DRUG REACTIONS, SIDE EFFECTS OF ALL MEDICATIONS (PRESCRIPTION/-OTC), AND HOW AND WHEN TO REPORT PROBLEMS.] Future Scheduled Test SKILLED NU RSE TO ASSESS ANXIETY AND PROVIDE ASSISTANCE TO PATIENT FOR UNDERSTANDING AND MANAGEMENT OF FEELINGS. [code = SKILLED NURSE TO ASSESS ANXIETY AND PROVIDE ASSISTANCE TO PATIENT FOR UNDERSTANDING AND MANAGEMENT OF FEELINGS.] Future Scheduled Test OXYGEN VIA NASAL CANNULA@ 2 LITERS CONTINUOUS. SKILLED NURSE FOR O/A AND SKILLED TEACHING OF SAFE OXYGEN USE IN THE HOME. [code = OXYGEN VIA NASAL CANNULA@ 2 LITERS CONTINUOUS. SKILLED NURSE FOR O/A AND SKILLED TEACHING OF SAFE OXYGEN USE IN THE HOME.] Future Scheduled Test SKILLED NU RSE FOR O/A, TEACHING, AND MANAGEMENT OF HLD, CAD. [code = SKILLED NURSE FOR O/A, TEACHING, AND MANAGEMENT OF HLD, CAD.] Future Scheduled Test SKILLED NU RSE FOR O/A, TEACHING AND MANAGEMENT OF BPH FOR EARLY IDENTIFICATION OF EXACERBATION OF DISEASE PROCESS [code = SKILLED NURSE FOR O/A, TEACHING AND MANAGEMENT OF BPH FOR EARLY IDENTIFICATION OF EXACERBATION OF DISEASE PROCESS] Future Scheduled Test SKILLED NU RSE FOR O/A OF RESPIRATORY SYSTEM TO IDENTIFY CHANGES ASSOCIATED WITH EXACERBATION AND TO PROVIDE SKILLED TEACHING ON MANAGEMENT OF PNA, ASTHMA, RESP FAILURE DISEASE PROCESS. [code = SKILLED NURSE FOR O/A OF RESPIRATORY SYSTEM TO IDENTIFY CHANGES ASSOCIATED WITH EXACERBATION AND TO PROVIDE SKILLED TEACHING ON MANAGEMENT OF PNA, ASTHMA, RESP FAILURE DISEASE PROCESS.] Future Scheduled Test SKILLED NU RSE FOR O/A AND SKILLED TEACHING RELATED TO SIGNS AND SYMPTOMS OF INFECTION AND INFECTION CONTROL MEASURES. [code = SKILLED NURSE FOR O/A AND SKILLED TEACHING RELATED TO SIGNS AND SYMPTOMS OF INFECTION AND INFECTION CONTROL MEASURES.] Future Scheduled Test SKILLED NU RSE TO PROVIDE TEACHING ON SIGNS AND SYMPTOMS AND MANAGEMENT OF HYPERTENSION. [code = SKILLED NURSE TO PROVIDE TEACHING ON SIGNS AND SYMPTOMS AND MANAGEMENT OF HYPERTENSION.] Future Scheduled Test SKILLED NU RSE TO INSTRUCT PATIENT/CAREGIVER ON COPD TO INCLUDE TEACHING AND SELF-MANAGEMENT RELATED TO COPD DISEASE PROCESS, SIGNS AND SYMPTOMS, AND COMPLICATIONS. [code = SKILLED NURSE TO INSTRUCT PATIENT/CAREGIVER ON COPD TO INCLUDE TEACHING AND SELF-MANAGEMENT RELATED TO COPD DISEASE PROCESS, SIGNS AND SYMPTOMS, AND COMPLICATIONS.] Future Scheduled Test SKILLED NU RSE FOR O/A AND TEACHING OF DIABETIC MANAGEMENT INCLUDING BLOOD SUGAR MONITORING/USE OF GLUCOMETER, DIABETIC DIET, LOWER EXTREMITY SKIN INSPECTION, PROPER SKIN/FOOT CARE, AND SIGNS AND SYMPTOMS HYPO/HYPERGLYCEMIA TO REPORT. [code = SKILLED NURSE FOR O/A AND TEACHING OF DIABETIC MANAGEMENT INCLUDING BLOOD SUGAR MONITORING/USE OF GLUCOMETER, DIABETIC DIET, LOWER EXTREMITY SKIN INSPECTION, PROPER SKIN/FOOT CARE, AND SIGNS AND SYMPTOMS HYPO/HYPERGLYCEMIA TO REPORT.] Future Scheduled Test SKILLED NU RSE FOR O/A AND SKILLED TEACHING RELATED TO SIGNS AND SYMPTOMS AND MANAGEMENT OF OSTEOMYELITIS. [code = SKILLED NURSE FOR O/A AND SKILLED TEACHING RELATED TO SIGNS AND SYMPTOMS AND MANAGEMENT OF OSTEOMYELITIS.] Future Scheduled Test VIRTUAL SIT FREQUENCY: 3-4 PRN VIRTUAL VISITS FOR HIGH RISK ASSESSMENTS AND/OR CHANGE IN STATUS MAY BE PERFORMED UTILIZING TELECOMMUNICATIONS SYSTEM TO OPTIMIZE SKILLED SERVICES FURNISHED ON THE PLAN OF CARE. SKILLED NURSE TO ESTABLISH SUPPORT MEASURES TO MINIMIZE RISK OF REHOSPITALIZATION, AND INSTRUCT PATIENT/CAREGIVER ON METHODS TO REDUCE AVOIDABLE HOSPITALIZATION. [code = VIRTUAL VISIT FREQUENCY: 3-4 PRN VIRTUAL VISITS FOR HIGH RISK ASSESSMENTS AND/OR CHANGE IN STATUS MAY BE PERFORMED UTILIZING TELECOMMUNICATIONS SYSTEM TO OPTIMIZE SKILLED SERVICES FURNISHED ON THE PLAN OF CARE. SKILLED NURSE TO ESTABLISH SUPPORT MEASURES TO MINIMIZE RISK OF REHOSPITALIZATION, AND INSTRUCT PATIENT/CAREGIVER ON METHODS TO REDUCE AVOIDABLE HOSPITALIZATION.] Future Scheduled Test PATIENT CANDLEARIA S A RISK OF HOSPITALIZATION AND ED USE. SKILLED NURSE TO ESTABLISH SUPPORT MEASURES TO MINIMIZE RISK OF HOSPITALIZATION AND ED USE, AND INSTRUCT PATIENT/CAREGIVER ON METHODS TO REDUCE AVOIDABLE HOSPITALIZATION AND ED USE. [code = PATIENT HAS A RISK OF HOSPITALIZATION AND ED USE. SKILLED NURSE TO ESTABLISH SUPPORT MEASURES TO MINIMIZE RISK OF HOSPITALIZATION AND ED USE, AND INSTRUCT PATIENT/CAREGIVER ON METHODS TO REDUCE AVOIDABLE HOSPITALIZATION AND ED USE.] Future Scheduled Test SKILLED NU RSE TO PROVIDE INSTRUCTION TO PATIENT/CAREGIVER RELATED TO DISCHARGE PLANNING. [code = SKILLED NURSE TO PROVIDE INSTRUCTION TO PATIENT/CAREGIVER RELATED TO DISCHARGE PLANNING.] Future Scheduled Test SKILLED NU RSE TO PERFORM HOME SAFETY AND FALL ASSESSMENT AND PROVIDE INSTRUCTION TO IMPLEMENT HOME SAFETY AND FALL PREVENTION STRATEGIES. [code = SKILLED NURSE TO PERFORM HOME SAFETY AND FALL ASSESSMENT AND PROVIDE INSTRUCTION TO IMPLEMENT HOME SAFETY AND FALL PREVENTION STRATEGIES.] Future Scheduled Test SKILLED NU RSE FOR OBSERVATION AND ASSESSMENT OF PATIENTS PAIN LEVEL AND EFFECTIVENESS OF PAIN MANAGEMENT REGIMEN. SKILLED NURSE TO INSTRUCT PATIENT/CAREGIVER REGARDING PHARMACOLOGIC AND NON-PHARMACOLOGIC PAIN CONTROL MEASURES. SKILLED NURSE TO REPORT TO PHYSICIAN IF PAIN IS UNCONTROLLED WITH CURRENT PAIN MANAGEMENT REGIMEN. [code = SKILLED NURSE FOR OBSERVATION AND ASSESSMENT OF PATIENTS PAIN LEVEL AND EFFECTIVENESS OF PAIN MANAGEMENT REGIMEN. SKILLED NURSE TO INSTRUCT PATIENT/CAREGIVER REGARDING PHARMACOLOGIC AND NON-PHARMACOLOGIC PAIN CONTROL MEASURES. SKILLED NURSE TO REPORT TO PHYSICIAN IF PAIN IS UNCONTROLLED WITH CURRENT PAIN MANAGEMENT REGIMEN.] Future Scheduled Test SKILLED NU RSE TO ASSESS PATIENT'S SKIN INTEGRITY AND INSTRUCT PATIENT/CAREGIVER ON MEASURES TO PREVENT PRESSURE ULCERS. [code = SKILLED NURSE TO ASSESS PATIENT'S SKIN INTEGRITY AND INSTRUCT PATIENT/CAREGIVER ON MEASURES TO PREVENT PRESSURE ULCERS.] Goal 2024-06-19 Patient Goal - GET BETTER, O FF O2 Goal Provider Goal - A PLAN OF CARE WILL BE ESTABLISHED THAT MEETS PATIENT'S USP NEEDS AND INCLUDES PATIENT GOAL FOR HOME HEALTH. Goal Provider Goal - PATIENT/CAREGIVER WILL VERBALIZE UNDERSTANDING OF EDUCATION PROVIDED ON MEDICATIONS BY THE END OF THE CERTIFICATION PERIOD. Goal Provider Goal - SYMPTOMS OF ANXIETY ARE IDENTIFIED AND INTERVENTIONS INITIATED TO ENABLE PATIENT TO UNDERSTAND AND MANAGE FEELINGS THROUGHOUT EPISODE. Goal Provider Goal - PATIENT/CAREGIVER WILL VERBALIZE/DEMONSTRATE UNDERSTANDING OF SAFE OXYGEN USE IN THE HOME THROUGHOUT THE EPISODE. Goal Provider Goal - PATIENT/CAREGIVER WILL VERBALIZE/DEMONSTRATE MANAGEMENT OF CARDIAC DISEASE PROCESS AND EXACERBATIONS WILL BE IDENTIFIED AND PROMPTLY REPORTED THROUGHOUT THE CERTIFICATION PERIOD. Goal Provider Goal - PATIENT/CAREGIVER WILL VERBALIZE UNDERSTANDING OF GENITOURINARY DISEASE PROCESS, AND EXACERBATIONS OF GENITOURINARY DISEASE WILL BE PROMPTLY IDENTIFIED FOR EARLY INTERVENTION THROUGHOUT THE CERTIFICATION PERIOD. Goal Provider Goal - PATIENT/CAREGIVER WILL VERBALIZE/DEMONSTRATE MANAGEMENT OF RESPIRATORY DISEASE PROCESS. CHANGES IN RESPIRATORY STATUS WILL BE IDENTIFIED AND REPORTED TO PHYSICIAN FOR PROMPT INTERVENTION THROUGHOUT THE CERTIFICATION PERIOD. Goal Provider Goal - PATIENT/CAREGIVER WILL VERBALIZE/DEMONSTRATE UNDERSTANDING OF S/S OF INFECTION AND INFECTION CONTROL MEASURES. SIGNS AND SYMPTOMS OF INFECTION WILL BE IDENTIFIED AND PHYSICIAN NOTIFIED FOR PROMPT INTERVENTION THROUGHOUT THE CERTIFICATION PERIOD. Goal Provider Goal - PATIENT/CAREGIVER WILL VERBALIZE SIGNS AND SYMPTOMS OF HYPERTENSION AND WILL BE ABLE TO DEMONSTRATE ABILITY TO MANAGE EXACERBATION BY END OF THE EPISODE. Goal Provider Goal - PATIENT/CAREGIVER WILL VERBALIZE/DEMONSTRATE KNOWLEDGE AND MANAGEMENT OF COPD BY END OF EPISODE. Goal Provider Goal - PATIENT/CAREGIVER WILL VERBALIZE/DEMONSTRATE KNOWLEDGE OF DIABETIC MANAGEMENT. CHANGES IN DIABETIC STATUS WILL BE IDENTIFIED AND REPORTED TO PHYSICIAN FOR PROMPT INTERVENTION THROUGHOUT THE CERTIFICATION PERIOD. Goal Provider Goal - PATIENT/CAREGIVER WILL VERBALIZE UNDERSTANDING OF MUSCULOSKELETAL DISEASE INCLUDING SIGNS AND SYMPTOMS, MANAGEMENT, AND PRESCRIBED TREATMENT REGIMEN BY END OF EPISODE. Goal Provider Goal - PATIENT/CAREGIVER WILL UTILIZE VIRTUAL VISITS TO ACHIEVE GOALS OUTLINED ON THE PLAN OF CARE. PATIENT WILL HAVE SUPPORT MEASURES ESTABLISHED TO PREVENT HOSPITALIZATION AND PATIENT/CAREGIVER WILL VERBALIZE/DEMONSTRATE METHODS TO REDUCE AVOIDABLE HOSPITALIZATION THROUGHOUT THE CERTIFICATION PERIOD. Goal Provider Goal - PATIENT WILL HAVE SUPPORT MEASURES ESTABLISHED TO PREVENT HOSPITALIZATION AND ED USE AND PATIENT/CAREGIVER WILL VERBALIZE/DEMONSTRATE METHODS TO REDUCE AVOIDABLE HOSPITALIZATION AND ED USE BY END OF EPISODE. Goal Provider Goal - PATIENT/CAREGIVER WILL VERBALIZE UNDERSTANDING OF DISCHARGE PLANNING INSTRUCTIONS BY DATE OF DISCHARGE. Goal Provider Goal - PATIENT/CAREGIVER WILL VERBALIZE/DEMONSTRATE EFFECTIVE HOME SAFETY AND FALL PREVENTION STRATEGIES THROUGHOUT CERTIFICATION PERIOD. Goal Provider Goal - PATIENT/CAREGIVER WILL DEMONSTRATE UNDERSTANDING OF PHARMACOLOGIC AND NONPHARMACOLOGIC PAIN CONTROL MEASURES AND PATIENT WILL HAVE IMPROVEMENT IN PAIN INTERFERING WITH ACTIVITY EVIDENCED BY PAIN CONTROLLED AT LEVEL OF 7 OR LESS BY END OF CERTIFICATION PERIOD. Goal Provider Goal - PATIENT/CAREGIVER WILL VERBALIZE UNDERSTANDING OF PRESSURE ULCER PREVENTION BY END OF THE EPISODE. Reason for Visit INDEPENDENT IN THE COMMUNITY Encounters Start Date/Time End Date/Time Encounter Type Admission Type Attending [facility] Care Department Encounter ID Discharge Date Discharge Status Discharge Condition Discharge Reason Percent Goals Met 2024-05-26 00:00:00 2024-06-19 00:00:00 Outpatient NEW ADMISSION [facility] [id number] 2024-06-19 00:00:00 DISCHARGE TO HOME OR SELF CARE INDEPENDEN T IN THE COMMUNITY GOALS MET ( ONLY) 90.32
--- OUTSIDE RECORDS SUMMARY | 2024-08-06 12:01 | XMS_ITS ---
Author Organization [facility] Address [address] [place] [address] Care Team Providers Care Road Mender Name Role Phone Denis Diehl Primary Care Provider Unavailab Gary Mon Unavailable [phone] REASON FOR VISIT colon screening PROBLEMS Problem Type ICD Code Onset Dates Problem Status W/U Status Risk SNOMED Code Notes Problem Diverticulosis of colon (K57.30) Active confirmed Diverticulosi s of colon (203847124) Encounters Encounter Location Date Provider Diagnosis [facility] Outpatient [address] [place], [place] [id number] 03/19/2023 Gary San Colon cancer scree jag [...]
--- OUTSIDE RECORDS SUMMARY | 2024-08-06 12:01 | XMS_ITS | Patient Health Record ---
Author Organization [facility] Address [address] [place] [id number] Care Team Providers Care Electron Gun Assembler Name Role Phone Denis Diehl Primary Care Provider UnavailGary Duarte Unavailable [phone] ALLERGIES Allergen (clinical drug ingredient) Drug/Non Drug [...] malignant neoplasm of colon (Z12.11) Active confirmed 315630588 Problem History of adenomatous polyp of colon (Z86.010) Active confirmed 599516484 Problem Encounter for screening for malignant neoplasm of rectum (Z12.12) Active confirmed Screening fo r malignant neoplasm of rectum (291647391) Problem Long-term use of aspirin therapy (Z79.82) Active confirmed 188685250 Problem Constipation, unspecified constipation type (K59.00) Active confirmed 79605776 Problem Diverticulosis of colon (K57.30) Active confirmed Diverticulosi s of colon (540793991) PLAN OF TREATMENT Pending Test Test Name Order Date Pathology 03/19/2023 Future Test Test Name Order Date COLONOSCOPY 06/09/2011 COLONOSCOPY 11/28/2016 COLONOSCOPY 07/06/2022 Insurance Providers Payer Name Payer Address Payer Phone Subscriber Number Group Number Insured Name Patient Relationship to Insured Coverage Start Date Coverage End Date MEDICARE OF [place] [address] [place] [id number] MAX EDE Self - patient is the insured [facility] SUPPLEMENTAL PLAN [address] [place] [address] [id number] EDE SANTANA Self - patient is the insured MEDICAL (GENERAL) HISTORY Medical History History ICD Code Tubular adenomas removed in 2000, 2002, and 2005--he had a negative colonoscopy in 08/2011 except for some diverticulosis and internal hemorrhoids. Colonoscopy 02/2017 with small tubular adenomas removed. Asthma/COPD Hyperlipidemia NIDDM Hypertension He denies any history of NM, stroke, nor kidney disease Sleep apnea-uses CPAP BPH Surgical History Surgery Date(Month/Year) Cataracts/Lens implants Right hand surgery Left ankle surgery Left carotid artery 2016 TURP 2019
--- OUTSIDE RECORDS SUMMARY | 2024-08-06 12:02 | XMS_ITS | Clinical Summary ---
Author Organization Unknown Care Team Providers Care Fitter Armament Name Role Phone FRANSISCO SANTIAGO, GILBERTO Unavailable Unavailable LANA OQUENDO, SIN Unavailable Unavailable Payers Payer Name Policy Type Policy Number Effective Date Expira tion Date MEDICARE - NGS [place] - PDGM [id number] SELF PAY Problems Condition Name Condition Details [...] 08-20 00:00: 00 ATHSCL HEART DISEASE OF [place] CORONARY ARTERY W/O ANG PCTRS Active 08-20 00:00: 00 ESSENTIAL (PRIMARY) HYPERTENSION Active 08-20 00:00: 00 OBESITY, UNSPECIFIED Active 08-20 00:00: 00 PURE HYPERCHOLEST EROLEMIA, UNSPECIFIED Active 08-20 00:00: 00 OBSTRUCTIVE SLEEP APNEA (ADULT) (PEDIATRIC) Active 08-20 00:00: 00 UNSPECIFIED ASTHMA WITH (ACUTE) EXACERBATION Active 08-20 00:00: 00 BIFASCICULAR BLOCK Active 08-20 00:00: 00 PRISON (CURRENT) USE OF ASPIRIN Active 08-20 00:00: 00 ADJUNCT PROFESSOR (CURRENT) USE OF INHALED STEROIDS Active 08-20 00:00: 00 ADJUNCT PROFESSOR (CURRENT) USE OF ORAL HYPOGLYCEMIC DRUGS Active 08-20 00:00: 00 PRISON (CURRENT) USE OF SYSTEMIC STEROIDS Active 08-20 [...] 750 mg tablet 2023-08 00:00: 00 Yes [id number] 1 tablet DAILY 1 tablet DAILY (route: oral) Med Classific ation: Anti-Infe ctive Agents prednisone 10 mg tablet 2023-08 00:00: 00 Yes [id number] Per instruc tions DAILY Per instructio ns DAILY (route: oral) Med Classific ation: Endocrine rosuvastati n 10 mg tablet 2023-08 00:00: 00 Yes [id number] 1 tablet DAILY 1 tablet DAILY (route: oral) Med Classific ation: Cardiovas cular Therapy Agents tamsulosin 0.4 mg capsule 05-10 00:00: 00 Yes [id number] 1 capsule DAILY 1 capsule DAILY (route: oral) Med Classific ation: Genitouri nary Therapy amlodipine 10 mg tablet 05-09 00:00: 00 Yes [id number] Per instruc tions EVERY DAY Per instructio ns EVERY DAY (route: oral) Med Classific ation: Cardiovas cular Therapy Agents latanoprost 0.005 % eye drops 20 00:00: 00 Yes [id number] Per instruc tions DAILY AT BEDTIME Per instructio ns DAILY AT BEDTIME (route: ophthalmic (eye)) Med Classific ation: Ophthalmi c Agents Breztri Aerosphere 160 mcg-9mcg-4. 8mcg/actuat ion HFA aerosol inhaler 12 00:00: 00 Yes [id number] Per instruc tions TWICE A DAY Per instructio ns TWICE A DAY (route: inhalation ) Med Classific ation: Respirato ry Therapy Agents albuterol sulfate HFA 90 mcg/actuati on aerosol inhaler 2023-08 0 00:00: 00 Yes [id number] 2 puff EVERY 4 HOURS 2 puff EVERY 4 HOURS (route: inhalation ) Med Classific ation: Respirato ry Therapy Agents aspirin 81 mg tablet,radha yed release 2023-08 00:00: 00 Yes [id number] 1 tablet DAILY 1 tablet DAILY (route: oral) Med Classific ation: Hematolog ical Agents chlorthalid one 50 mg tablet 2023-08 00:00: 00 Yes [id number] 1 tablet DAILY 1 tablet DAILY (route: oral) Med Classific ation: Cardiovas cular Therapy Agents finasteride 5 mg tablet 2023-08 00:00: 00 Yes [id number] 1 tablet DAILY 1 tablet DAILY (route: oral) Med Classific ation: Genitouri nary Therapy hydralazine 50 mg tablet 2023-08 00:00: 00 Yes [id number] 1 tablet DAILY 1 tablet DAILY (route: oral) Med Classific ation: Cardiovas cular Therapy Agents metformin 1,000 mg tablet 2023-08 00:00: 00 Yes [id number] 1 tablet 2 TIMES DAILY 1 tablet [...] REDUCE AVOIDABLE HOSPITALIZATION.] Future Scheduled Test PATIENT CANDELARIA S A RISK OF HOSPITALIZATION AND ED [...] CARE WILL BE ESTABLISHED THAT MEETS PATIENT'S RETIREMENT NEEDS AND INCLUDES PATIENT GOAL FOR HOME [...] End Date/Time Encounter Type Admission Type Attending [facility] Care Department Encounter ID Discharge Date Discharge Status Discharge Condition Discharge Reason Percent Goals Met 2024-05-26 00:00:00 2024-06-19 00:00:00 Outpatient NEW ADMISSION SIN SCHWARTZ [facility] [id number] 2024-06-19 00:00:00 DISCHARGE TO HOME OR SELF CARE INDEPENDEN T IN THE COMMUNITY GOALS MET ( ONLY) 90.32
--- NOTE | 2024-08-06 12:33 | MHC.OFFVIS ---
Vital Signs 08/06/24 12:34 Height 5 ft 8 in Weight 211 lb 10.3 oz BMI 32.2 BP 140/68 H Blood Pressure Location Lt brachial Position Sitting Pulse 88 Pulse Source Pulse Oximeter Intake Visit Reasons: 6 mth f/up Allergies SADI Inhibitors [SADI INHIBITORS] Allergy (Unknown, Verified 08/05/24 08:52) FACIAL SWELLING lisinopril [LISINOPRIL] Allergy (Unknown, Verified 08/05/24 08:52) FACIAL SWELLING, hives, lip edema oxycodone [From PERCOCET] Allergy (Unknown, Verified 08/05/24 08:52) JOINT STIFFNESS peanut [PEANUTS] Allergy (Unknown, Verified 08/05/24 08:52) SWELLING,THROAT,HIVES Medication List - Last Reconciled 08/06/24 by Hernandez Jennings MD albuterol sulfate 90 mcg/actuation 2 puffs inhalation Q4H PRN amlodipine 10 mg PO DAILY aspirin 81 mg PO DAILY blood sugar diagnostic USE DIRECTED DAILY blood sugar diagnostic ([employer] Ultra Test strips) check blood sugar one time daily prn as directed brinzolamide-brimonidine 1-0.2 % (Simbrinza) 1 drp ophthalmic (eye) BID [id number] 160-9-4.8 mcg/actuation (Breztri Aerosphere) 2 inhalations inhalation BID chlorthalidone 50 mg PO DAILY epinephrine (EpiPen) 0.3 mg (0.3 mL) IM Q10M PRN 30 days finasteride 5 mg PO DAILY hydralazine 50 mg PO TID latanoprost 0.005% 1 drp ophthalmic (eye) BEDTIME metformin 1,000 mg PO BID 90 days rosuvastatin 10 mg PO BEDTIME tamsulosin 0.4 mg PO BID HPI Comments Details: Taqueria returns for follow-up regarding coronary disease. He has multiple cardiovascular risk factors including history of smoking, hypertension, diabetes, dyslipidemia and established coronary as well as peripheral vascular disease. He is not reporting any cardiac symptoms. No angina. Otherwise, generally doing okay. Improving from a recent pneumonia. [facility] Medical History Hypokalemia COVID Benign prostatic hyperplasia with urinary obstruction MISTY on CPAP Bifascicular block Atherosclerotic cardiovascular disease COPD (chronic obstructive pulmonary disease) Carotid stenosis Hypertension Diabetes Hypercholesteremia Surgical History H/O colonoscopy Hx of elbow surgery History of eyelid surgery S/P TURP (status post transurethral resection of prostate) (~2019) Status post carotid surgery Hx of cataract Family History Father CVD (cardiovascular disease) Mother No problems noted. Sister Cancer Sister Cancer Social History Household Members: None Housing: House Do you presently have visiting nurse or other home services: Yes Alcohol intake: current Alcohol intake frequency: a few times a week Comment: pt. is ambulatory, steady on foot. Patient Tobacco Use Status: Former Tobacco user e-Cigarette/Vaping Use: Never Used Second Hand Smoke Exposure: No Substance Use Type: Prescription Drugs Advance Directives Date on File: 04/27/24 service: No Current occupational status: retired Current occupational exposures/hazards: No Cognitive needs: No Hearing needs: No Vision needs: No Review of Systems Const Denies weakness ENT Denies dizziness Card Denies chest pain, Denies chest pain with activity, Denies syncope, Denies rapid heart rate, Denies pedal edema, Denies edema, Denies leg edema, Denies lightheadedness, Denies palpitations, Denies dyspnea, Denies dyspnea on exertion and Denies orthopnea Resp Denies cough, Denies dyspnea and Denies dyspnea on exertion GI Denies hematochezia and Denies change in stool character Musc Denies abnormal gait, Denies muscle cramps, Denies muscle weakness, Denies numbness, Denies radiating pain into limb and Denies tingling Neuro Denies abnormal gait, Denies dizziness, Denies syncope, Denies numbness, Denies tingling and Denies weakness Endo Denies palpitations Physical Exam Vital Signs: Last Vital Signs Pulse 88 08/06/24 12:34 BP 140/68 H 08/06/24 12:34 BMI result Body Mass Index 32.2 Const General: comfortable and no acute distress Orientation/consciousness: patient oriented x3 HEENT Other: Unremarkable Head: Yes normal to inspection Neck Neck: Yes normal visual inspection Chest Chest palpation & inspection: normal inspection of the chest Resp Auscultation: clear to auscultation bilaterally Cardio Palpation: normal PMI Heart sounds: S1 normal heart sound present, S2 normal heart sound present, no gallops, no murmurs and no rubs GI Palpation (GI): Soft to palpation Back/Spine/Pelvis Other: unremarkable Skin General skin exam: no rashes or lesions noted Neuro General: patient oriented x3 Extrem General: Yes normal to inspection Psych Mental Status: mental status grossly normal Assessment & Plan Assessment & Plan (1) Atherosclerotic cardiovascular disease: Code(s): I25.10 - Atherosclerotic heart disease of [place] coronary artery without angina pectoris Category: Medical Plan: Cardiac catheterization in the past had revealed minimal irregularities in the left main, LAD, circumflex and moderate nonobstructive disease in the right coronary artery. Most recently, perfusion imaging from 01/2024 unremarkable. Continue aspirin and statins. Last LDL 51 mg/dL. Prior values also similar. Could not take beta-blockers due to possible allergic reaction in the past as well as epinephrine use for allergies (used once in the past). (2) Bifascicular block: Code(s): I45.2 - Bifascicular block Category: Medical Plan: Stable. (3) Atrial arrhythmia: Code(s): I49.8 - Other specified cardiac arrhythmias Category: Medical Plan: In the last Holter, he had frequent supraventricular ectopy with a burden of almost 10%. Increased risk of atrial fibrillation the future. (4) Essential hypertension: Code(s): I10 - Essential (primary) hypertension Category: Medical Plan: Stable. No changes. Of note, history of allergy to SADI inhibitors in the past due to swelling of lips. Also suspected beta-caitlyn allergy, but symptoms are not very clear. (5) Type 2 diabetes mellitus with unspecified complications: Code(s): E11.8 - Type 2 diabetes mellitus with unspecified complications Category: Medical Plan: On Metformin. Last HbA1c 6.9%. (6) Carotid stenosis, bilateral: Comment: 12/02/2015- left carotid endarterectomy Code(s): I65.23 - Occlusion and stenosis of bilateral carotid arteries Category: Medical Plan: Status post left carotid endarterectomy. Last carotid Doppler shows no significant disease. (7) MISTY on CPAP: Code(s): G47.33 - Obstructive sleep apnea (adult) (pediatric); Z99.89 - Dependence on other enabling machines and devices Category: Medical Plan: Continue CPAP. Coding Level of Care Code Est Pt Level 4 (33160) Diagnoses Atherosclerotic cardiovascular disease I25.10 Bifascicular block I45.2 Atrial arrhythmia I49.8 Essential hypertension I10 Type 2 diabetes mellitus with unspecified complications E11.8 Carotid stenosis, bilateral I65.23 MISTY on CPAP G47.33; Z99.89
[2024-08-06 12:34] VITALS: BP 140/68; PULSE 88; BMI 32.2
== END 2024-08-06 12:48 | disposition home or self-care (01) ==
PROVIDERS: PCP Family Medicine; Visit Provider Internal Medicine
DX: I25.10 Atherosclerotic heart disease of native coronary artery without angina pectoris (principal); I45.2 Bifascicular block; I49.8 Other specified cardiac arrhythmias; I10 Essential (primary) hypertension; E11.8 Type 2 diabetes mellitus with unspecified complications; I65.23 Occlusion and stenosis of bilateral carotid arteries; G47.33 Obstructive sleep apnea (adult) (pediatric); Z99.89 Dependence on other enabling machines and devices
CPT/HCPCS: 99214

== ENCOUNTER → 2024-08-06 11:58 | Outpatient (BNVA) | payer MEDICARE, SELFPAY | PROVIDERS: PCP Family Medicine; Visit Provider Internal Medicine | DX: I25.10 Atherosclerotic heart disease of native coronary artery without angina pectoris (principal); I45.2 Bifascicular block; I49.8 Other specified cardiac arrhythmias; I10 Essential (primary) hypertension; I65.23 Occlusion and stenosis of bilateral carotid arteries; E11.8 Type 2 diabetes mellitus with unspecified complications; G47.33 Obstructive sleep apnea (adult) (pediatric); Z99.89 Dependence on other enabling machines and devices | CPT/HCPCS: 99212 ==

== ENCOUNTER → 2024-09-24 19:30 | Outpatient (REF) | payer MEDICARE, SELFPAY ==
--- OUTSIDE RECORDS SUMMARY | 2024-09-24 20:33 | XMS_ITS | Clinical Summary ---
Author Organization [email or web address] ity Address [address] [place] [address] Care Team Providers Care Assistant Case Manager Name Role Phone Denis Diehl MD Primary Care Provider [phone] Surgical History Surgery Date Site/Laterality Comments ANKLE SURGERY PROCEDURE:ANKLE SURGERY Medical History Medical History Date Comments Asthma DX:Asthma COPD (chronic obstructive pu lmonary disease) ([facility]) DX:COPD (chronic obstructive pulmonary disease) ([facility]) Diabetes mellitus ([facility]) DX:D iabetes mellitus ([facility]) Hypertension DX:Hypertension Family History Medical History Relation Name Comments Heart disease Father Cancer Sister Relation Name Status Comments Father Sister Social History Tobacco Use Types Packs/Day Years Used Date Smoking Tobacco: Former Smokeless Tobacco: Never Sex and Gender Information Value Date Recorded Sex Assigned at Not on file Gender Identity Not on file Sexual Orientation Not on file Obstetrics History Last Filed Vital Signs Vital Sign Reading Time Taken Comments Blood Pressure - - Pulse - - Temperature - - Respiratory Rate - - Oxygen Saturation - - Inhaled Oxygen Concentration - - Weight 95.3 kg (210 lb) 09/12/2022 12:47 PM EST Height 172.7 cm (5' 8 ) 09/12/2022 12:47 PM EST Body Mass Index 31.93 09/12/2022 12:47 PM EST Plan of Treatment Health Maintenance Due Date Last Done Comments DTaP,Tdap,and Td Vaccines (1 - Tdap) 1965 Zoster Vaccines (1 of 2) 1996 Pneumococcal Vaccine: 65+ Ye ars (1 of 1 - PCV) 2011 RSV Immunization Patients 60 + Years Old (1 - 1-dose 75+ series) 2021 Cholesterol Screening (Lipid Panel) 09/23/2023 Depression Screening 09/23/2023 Falls Risk Assessment 09/23/2023 Hepatitis C Screening 09/23/2023 Social Influencers of Health Screening 09/23/2023 COVID-19 Vaccine ( - 2023-2 5 season) 2024 Influenza Vaccine (#1) 2024 HIB Vaccines Aged Out No longer eligi ble based on patient's age to complete this topic HPV Vaccines Aged Out No longer eligi ble based on patient's age to complete this topic Hepatitis A Vaccines Aged Out No long er eligible based on patient's age to complete this topic Hepatitis B Vaccines Aged Out No long er eligible based on patient's age to complete this topic IPV Vaccines Aged Out No longer eligi ble based on patient's age to complete this topic MMR Vaccines Aged Out No longer eligi ble based on patient's age to complete this topic Meningococcal ACWY Vaccine Aged Out N o longer eligible based on patient's age to complete this topic RSV Immunization Patients Un leonora 20 months Aged Out No longer eligible b ased on patient's age to complete this topic Varicella Vaccines Aged Out No longer eligible based on patient's age to complete this topic Care Teams Assistant Case Manager Relationship Specialty Start Date End Date Denis Diehl MD [address] [place] [address] Dr Citlali MA PCP - General 09/05/22
--- OUTSIDE RECORDS SUMMARY | 2024-09-24 20:33 | XMS_ITS | Clinical Summary ---
Author Organization [facility] Address [address] [place] [id number] Care Team Providers Care Reference Library Assistant Name Role Phone Denis Diehl MD Primary Care Provider [phone] Allergies Active Allergy Reactions Criticality Noted Date Comments Blueberry Swelling,Anaphylaxis High 09/12/2022 Other reaction(s): anaph., peanuts, legumes Lisinopril Swelling 06/17/2018 Other reaction(s): facial swelling, lip swollen Nuts Anaphylaxis,Other (See Comments) High 09/12/2022 Other reaction(s): face swelling Oxycodone-Acetaminophe n Other (See Comments) 06/17/2018 Other reaction(s): Myalgia and Joint Pain, Unknown Peanuts 09/05/2022 Medications Medication Sig Dispensed Refills Start Date End Date Status tamsulosin (FLOMAX) 0.4 MG CAPS Take 1 capsule (0.4 mg total) by mouth 2 (two) times a day. 0 08/28/2022 Active rosuvastatin (CRESTOR) tablet 10 mg Take 1 tablet (10 mg total) by mouth every night at bedtime. 0 08/28/2022 Active metFORMIN (GLUCOPHAGE) tablet 1000 mg Take 1 tablet (1,000 mg total) by mouth 2 (two) times a day. 0 08/01/2022 Active amLODIPine (NORVASC) tablet 10 mg TAKE ONE TABLET BY MOUTH EVERY DAY 0 08/28/2022 Active albuterol 108 (90 Base) MCG/ACT inhaler INHALE 2 PUFFS BY MOUTH EVERY 4 HOURS NEEDED FOR WHEEZING. USE WITH SPACER CHAMBER. 0 09/01/2022 Active Breztri Aerosphere 160-9-4.8 MCG/ACT AERO INHALE TWO PUFFS BY MOUTH TWICE A DAY . RINSE MOUTH AND THROAT AFTER USE 0 08/28/2022 Active hydrALAZINE (APRESOLINE) 50 MG tablet Take 1 tablet (50 mg total) by mouth 3 (three) times a day. 0 08/25/2022 Active chlorthalidone (HYGROTON) 50 MG tablet Take 1 tablet (50 mg total) by mouth daily. 0 07/29/2022 Active Simbrinza 1-0.2 % SUSP 0 09/01/2022 Ac tive metFORMIN (GLUCOPHAGE) tablet 1000 mg 1 tablet with a meal 0 Active hydrALAZINE (APRESOLINE) 25 MG tablet Take 1 tablet (25 mg total) by mouth 3 (three) times a day. 0 Active amLODIPine (NORVASC) tablet 10 mg 1 tablet 0 01/23/2020 Active Active Problems No known active problems Family History Medical History Relation Name Comments Heart disease Father Cancer Sister Relation Name Status Comments Father Sister Social History Tobacco Use Types Packs/Day Years Used Date Smoking Tobacco: Former Cigarettes Smokeless Tobacco: Never Tobacco Cessation:Counseling Given: Not Answered Sex and Gender Information Value Date Recorded Sex Assigned at Male 09/05/2022 11:07 AM EST Gender Identity Male 09/05/2022 11:07 AM EST Sexual Orientation Not on file Job Start Date Occupation Industry Not on file Not on file Not on file Last Filed Vital Signs Vital Sign Reading [...] Health Maintenance Due Date Last Done Comments Hepatitis C Screening 1945 COVID-19 Vaccine (#1) 02[birth year]13/1946 Depression Screening 1958 Preventative Health Evaluation 1964 DTap / Tdap / Td (1 - Tdap) 1965 Shingrix-Zoster Vaccine (1 o f 2) 1996 Fall Risk Assessment 2011 Pneumococcal Vaccine (2 of 2 - PCV) 03/16/2013 03/16/2012 RSV Adult > 60+ Yrs or (1 - 1-dose 75+ series) 2021 Influenza Vaccine (#1) 2024 2, 06/02/2020, 04/20/2016 Hepatitis B Vaccines Aged Out No long er eligible based on patient's age to complete this topic RSV Ped < 20 months Aged Out No longe r eligible based on patient's age to complete this topic Care Teams Reference Library Assistant Relationship Specialty Start Date End Date Denis Diehl MD [address] [place] [address] PCP - General Family Medicine 09/05/22
== END ==
LOC: HO.SL 19:30
PROVIDERS: PCP Family Medicine; Visit Provider Nurse Practitioner Family
DX: G47.33 Obstructive sleep apnea (adult) (pediatric) (principal); G47.34 Idiopathic sleep related nonobstructive alveolar hypoventilation
CPT/HCPCS: 95811

== ENCOUNTER → 2024-09-24 21:22 | Outpatient (BNV) | payer MEDICARE, SELFPAY | PROVIDERS: PCP Family Medicine; Visit Provider Internal Medicine | DX: G47.33 Obstructive sleep apnea (adult) (pediatric) (principal) | CPT/HCPCS: 95811 ==

== ENCOUNTER 2024-10-09 08:53 | Outpatient (AMB) | payer MEDICARE, SELFPAY ==
--- OUTSIDE RECORDS SUMMARY | 2024-10-09 09:23 | XMS_ITS | Patient Health Record ---
Author Organization [facility] Address [address] [place] [address] Care Team Providers Care Accounting Lecturer Name Role Phone Denis Diehl Primary Care Provider UnavailGary Duarte Unavailable [phone] ALLERGIES Allergen (clinical drug ingredient) Drug/Non Drug [...] malignant neoplasm of colon (Z12.11) Active confirmed 729150733 Problem History of adenomatous polyp of colon (Z86.010) Active confirmed 972639524 Problem Encounter for screening for malignant neoplasm of rectum (Z12.12) Active confirmed Screening fo r malignant neoplasm of rectum (901941475) Problem Long-term use of aspirin therapy (Z79.82) Active confirmed 888557230 Problem Constipation, unspecified constipation type (K59.00) Active confirmed 58577987 Problem Diverticulosis of colon (K57.30) Active confirmed Diverticulosi s of colon (242538930) PLAN OF TREATMENT Pending Test Test Name Order Date Pathology 03/19/2023 Future Test Test Name Order Date COLONOSCOPY 06/09/2011 COLONOSCOPY 11/28/2016 COLONOSCOPY 07/06/2022 Insurance Providers Payer Name Payer Address Payer Phone Subscriber Number Group Number Insured Name Patient Relationship to Insured Coverage Start Date Coverage End Date MEDICARE OF [place] [address] [place] [id number] MAX EDE Self - patient is the insured [facility] [employer] [address] [place] [address] [id number] EDE SANTANA Self - patient is the insured MEDICAL (GENERAL) HISTORY Medical History History ICD Code Tubular adenomas removed in 2000, 2002, and 2005--he had a negative colonoscopy in 08/2011 except for some diverticulosis and internal hemorrhoids. Colonoscopy 02/2017 with small tubular adenomas removed. Asthma/COPD Hyperlipidemia NIDDM Hypertension He denies any history of SD, stroke, nor kidney disease Sleep apnea-uses CPAP BPH Surgical History Surgery Date(Month/Year) Cataracts/Lens implants Right hand surgery Left ankle surgery Left carotid artery 2016 TURP 2019
--- OUTSIDE RECORDS SUMMARY | 2024-10-09 09:23 | XMS_ITS | Clinical Summary ---
Author Organization [facility] Address [address] [place] [address] Care Team Providers Care Wallpaper Consultant Name Role Phone Denis Diehl MD Primary Care Provider [phone] Allergies Active Allergy Reactions Criticality Noted Date [...] age to complete this topic Care Teams Wallpaper Consultant Relationship Specialty Start Date End Date Denis Diehl MD [address] [place] [address] PCP - General Family Medicine 09/05/22
--- OUTSIDE RECORDS SUMMARY | 2024-10-09 09:23 | XMS_ITS | Clinical Summary ---
Author Organization [facility] it Address [address] [place] [address] Care Team Providers Care Chaplain Name Role Phone Denis Diehl MD Primary Care Provider [phone] Surgical History Surgery Date Site/Laterality Comments ANKLE SURGERY PROCEDURE:ANKLE SURGERY Medical History Medical History Date Comments Asthma DX:Asthma COPD (chronic obstructive pu lmonary disease) ([facility]) DX:COPD (chronic obstructive pulmonary disease) ([facility]) Diabetes mellitus ([facility]) DX:D iabetes mellitus ([facility]) Hypertension DX:Hypertension Family History Medical History Relation Name Comments Heart disease Father Cancer Sister Relation Name Status Comments Father Sister Social History Tobacco Use Types Packs/Day Years Used Date Smoking Tobacco: Former Smokeless Tobacco: Never Sex and Gender Information Value Date Recorded Sex Assigned at Not on file Legal Sex Male 1:40 AM EST Gender Identity Not on file Sexual Orientation [...] DTaP,Tdap,and Td Vaccines (1 - Tdap) 1965 Pneumococcal Vaccine: 50+ Ye ars (1 of 1 - PCV) 1996 Zoster Vaccines (1 of 2) 1996 RSV Immunization Patients 60 + Years Old (1 - 1-dose 75+ series) 2021 Cholesterol Screening (Lipid Panel) 09/23/2023 Depression Screening 09/23/2023 Falls Risk Assessment 09/23/2023 Hepatitis C Screening 09/23/2023 Social Influencers of Health Screening 09/23/2023 COVID-19 Vaccine (2023-2 5 season) 2024 Influenza Vaccine (#1) 2024 [...] patient's age to complete this topic Meningococcal B Vacine Aged Out No lo nger eligible based on patient's age to complete this topic RSV Immunization Patients Un leonora 20 months Aged Out No longer eligible b ased on patient's age to complete this topic Varicella Vaccines Aged Out No longer eligible based on patient's age to complete this topic Care Teams Chaplain Relationship Specialty Start Date End Date Denis Diehl MD [address] [place] [address] Dr Citlali MA PCP - General 09/05/22
--- NOTE | 2024-10-09 09:47 | MHC.PC.OV ---
Vital Signs 10/09/24 09:49 Height 5 ft 8 in Weight 217 lb BMI 33.0 BP 130/60 Blood Pressure Location Rt brachial Position Sitting Respiration 14 Pulse 78 Pulse Source Pulse Oximeter Temp 97.6 F Temp Source Oral Pulse Oximetry (%) 94 Oxygen Delivery Method Room Air Intake Visit Reasons: f/u hypertension, diabetes Intake Note: follow up dm/htn Health Promotion Educator Required: No Allergies SADI Inhibitors [SADI INHIBITORS] Allergy (Unknown, Verified 10/09/24 09:48) FACIAL SWELLING lisinopril [LISINOPRIL] Allergy (Unknown, Verified 10/09/24 09:48) FACIAL SWELLING, hives, lip edema oxycodone [From PERCOCET] Allergy (Unknown, Verified 10/09/24 09:48) JOINT STIFFNESS peanut [PEANUTS] Allergy (Unknown, Verified 10/09/24 09:48) SWELLING,THROAT,HIVES Tobacco use date assessed: 10/04/23 Dental Screening Dental Screen Date: 10/04/23 HPI f/u hypertension, diabetes HPI Details 79 y/o male presents to f/u hypertension, diabetes. Blood pressure today 130/60, 78p. He is on hydralazine 50mg t.i.d, amlodipine 10mg daily. Prior A1c 07/07/24 6.9%. A1c today 10/09/24 6.9%. He is on metformin 1000mg b.i.d. [facility] Medical History Hypokalemia COVID Benign prostatic hyperplasia with urinary obstruction MISTY on CPAP Bifascicular block Atherosclerotic cardiovascular disease COPD (chronic obstructive pulmonary disease) Carotid stenosis Hypertension Diabetes Hypercholesteremia Surgical History H/O colonoscopy Hx of elbow surgery History of eyelid surgery S/P TURP (status post transurethral resection of prostate) (~2019) Status post carotid surgery Hx of cataract Family History Father CVD (cardiovascular disease) Mother No problems noted. Sister Cancer Sister Cancer Social History Household Members: None Housing: House Do you presently have visiting nurse or other home services: Yes Alcohol intake: current Alcohol intake frequency: a few times a week Comment: pt. is ambulatory, steady on foot. Patient Tobacco Use Status: Former Tobacco user e-Cigarette/Vaping Use: Never Used Second Hand Smoke Exposure: No Substance Use Type: Prescription Drugs Advance Directives Date on File: 04/27/24 service: No Current occupational status: retired Current occupational exposures/hazards: No Cognitive needs: No Hearing needs: No Vision needs: No Questionnaire PHQ-9 Over the last 2 weeks, how often have you been bothered by any of the following problems? 1. Little interest or pleasure in doing things: not at all 2. Feeling down, depressed, or hopeless: not at all 3. Trouble falling or staying asleep, or sleeping too much: not at all 4. Feeling tired or having little energy: not at all 5. Poor appetite or overeating: not at all 6. Feeling bad about yourself - or that you are a failure or have let yourself or your family down: not at all 7. Trouble concentrating on things, such as reading the newspaper or watching television: not at all 8. Moving or speaking so slowly that other people could have noticed. Or the opposite - being so fidgety or restless that you have been moving around a lot more than usual: not at all 9. Thoughts that you would be better off or of hurting yourself in some way: not at all Total score: 0 Source: Developed by Drs. Gary Damian, Elo Najera, Martin Ambrocio and colleagues, with an educational daina from [employer]. Thrive Questionnaire Date Thrive assessed: 10/02/24 I am a: Patient What is your living situation today?: I have a steady place to live Within the past 12 months, did the food you bought not last and you didn't have the money to get more?: Never true Within the past 12 months, did you worry whether your food would run out before you got money to buy more?: Never true Do you have trouble paying for medicines?: No Do you have trouble getting transportation to medical appointments?: No Do you have trouble paying your heating and electricity bill?: No Do you have trouble taking care of your child, family member or friend?: No Do you have trouble with day-to-day activities such as bathing, preparing meals, shopping, managing finances, etc.?: No Are you currently unemployed and looking for a job?: No Are you interested in more education?: No Please select the resources that you would like help with: None Currently or been in a relationship where the following occur: No concerns reported THRIVE Score: 0 AUDIT C Alcohol Use Questionnaire (AUDIT-C) 1. How often do you have a drink containing alcohol?: 2-4 times a month 2. How many drinks containing alcohol do you have on a typical day when you are drinking?: 1 or 2 3. How often do you have six or more drinks on one occasion?: Never Total Score: 2 RUDY-7 AMB Questionnaire RUDY-7 Date RUDY - 7 assessed: 10/04/23 Feeling nervous, anxious, or on edge: 0 = Not at all Not being able to stop or control worryin = Not at all Worrying too much about different things: 0 = Not at all Trouble relaxin = Not at all Being so restless that it is hard to sit still: 0 = Not at all Becoming easily annoyed or irritable: 0 = Not at all Feeling afraid as if something awful might happen: 0 = Not at all Total RUDY-7 score (0-4 normal; 5-9 mild; 10-14 moderate; 15-21 severe): 0 Source: Developed by Drs. Gary Damian, Elo Najera, Martin Ambrocio and colleagues, with an educational daina from [employer]. Review of Systems Const Denies chills, Denies fatigue, Denies fever(s), Denies headache(s) and Denies weakness ENT Denies dizziness and Denies headache(s) Card Denies chest pain, Denies lightheadedness, Denies dyspnea and Denies other (Palpitations) Resp Denies cough, Denies dyspnea, Denies wheezing and Denies other ( shortness of breath) Musc Denies numbness and Denies tingling Neuro Denies dizziness, Denies headache(s), Denies numbness, Denies tingling, Denies paresthesias and Denies weakness Psych Denies anxiety and Denies depression Endo Denies fatigue Aller/Immun Denies wheezing Physical exam (Primary Care) Vital Signs: Last Vital Signs Temp 97.6 F 10/09/24 09:49 Pulse 78 10/09/24 09:49 Resp 14 10/09/24 09:49 BP 130/60 10/09/24 09:49 Pulse Ox 94 10/09/24 09:49 Oxygen Delivery Method Room Air 10/09/24 09:49 BMI result Body Mass Index 33.0 Tobacco/Smoking Status: Tobacco use Status Tobacco use date assessed 10/04/23 10/09/24 09:52 Patient Tobacco Use Status Former Tobacco user 10/09/24 09:52 e-Cigarette/Vaping Use Never Used 10/09/24 09:52 PHQ-9: PHQ-9 Score PHQ-9: Total score 0 10/09/24 10:15 Thrive Assessment: Date of Thrive Assessment Date Thrive assessed 10/02/24 10/09/24 09:52 Currently or been in a relationship where the following occur: No concerns reported Const General: no acute distress and well developed Nutritional Appearance: well nourished Orientation/consciousness: patient oriented x3 HENMT Head: Yes normocephalic and Yes atraumatic Eyes General: appearance normal, both eyes and all related structures Pupils: Equal, round and reactive pupils present EOM: EOMs intact bilaterally Resp Effort & Inspection: normal respiratory effort Auscultation: clear to auscultation bilaterally Cardio Rate: regular rate Rhythm: regular rhythm Heart sounds: S1 normal heart sound present, S2 normal heart sound present, no gallops, no murmurs and no rubs Neuro General: patient oriented x3 and gait normal Cranial nerves: Yes Equal, round and reactive pupils present Psych Affect: normal affect Results AMB Hemoglobin A1c AMB Hemoglobin A1c 6.9 % Last Edit by Mario Bland CMA on 10/09/24 09:56 Results Reviewed Results Reviewed: Laboratory Last Values Hgb A1c (Clinic) 6.9 % (4.0-6.0) H 10/09/24 09:55 Coding Level of Care Code Est Pt Level 4 (12295) Diagnoses Essential hypertension I10 Diabetes type 2, controlled E11.9 Diabetes mellitus long winder tender insulin use: without nursing home use Atherosclerotic cardiovascular disease I25.10 Sleep apnea G47.30 Hypoxia R09.02 Assessment & Plan Assessment & Plan (1) Essential hypertension: Code(s): I10 - Essential (primary) hypertension Category: Medical Plan: Blood?pressure?in?office?is fairly well?controlled.??Goal?is?less?than?130/80 However,?patient?notes?that?his?morning?blood?pressures?are?elevated?until?he?takes?his?medication. He?is?taking amlodipine,?hydralazine?and?chlorthalidone?in?the?morning. He?then?takes?another?hydralazine?around?noon?and?is?3rd?hydralazine?at?night Likely?hydralazine?is?not?lasting?until?morning. Will?have?him?try?taking?his?amlodipine?dose?night (2) Diabetes type 2, controlled: Code(s): E11.9 - Type 2 diabetes mellitus without complications Category: Medical Qualifiers: Diabetes mellitus long winder tender insulin use: without nursing home use Plan: A1c?6.9%.??Goal?is?less?than?7.0% Controlled. Continue?current?medications (3) Atherosclerotic cardiovascular disease: Code(s): I25.10 - Atherosclerotic heart disease of [place] coronary artery without angina pectoris Category: Medical Plan: Stable He?is?on?rosuvastatin He?has?not?tolerated?SADI?inhibitors?or?beta-blockers. Blood?pressure?is?fairly?well?controlled?as?above. Blood?sugar?is?controlled. Follow-up?with?Cardiology?as?recommended (4) Sleep apnea: Code(s): G47.30 - Sleep apnea, unspecified Category: Medical Plan: No?longer?requires?oxygen?night Recent?sleep?lab?titration Stable Continue?CPAP Follow-up?with?pulmonology?as?recommended (5) Hypoxia: Comment: Finish Levaquin for 14 days. Code(s): R09.02 - Hypoxemia Category: Medical Plan: As?above,?no?longer?requires?oxygen?at?night Follow-up?with?Pulmonary?as?recommended Orders: Orders AMB Hemoglobin A1c Today E11.8 - Type 2 diabetes mellitus with unspecified complications
[2024-10-09 09:49] VITALS: BP 130/60; PULSE 78; RESP 14; TEMP 36.4; O2SAT 94; BMI 33.0
== END 2024-10-09 10:21 | disposition home or self-care (01) ==
PROVIDERS: PCP Family Medicine; Visit Provider Family Medicine
DX: I10 Essential (primary) hypertension (principal); E11.9 Type 2 diabetes mellitus without complications; I25.10 Atherosclerotic heart disease of native coronary artery without angina pectoris; G47.30 Sleep apnea, unspecified; R09.02 Hypoxemia; E11.8 Type 2 diabetes mellitus with unspecified complications

== ENCOUNTER → 2024-10-09 08:53 | Outpatient (BNVA) | payer MEDICARE, SELFPAY | PROVIDERS: PCP Family Medicine; Visit Provider Family Medicine | DX: I10 Essential (primary) hypertension (principal); E11.9 Type 2 diabetes mellitus without complications; I25.10 Atherosclerotic heart disease of native coronary artery without angina pectoris; R09.02 Hypoxemia; G47.30 Sleep apnea, unspecified | CPT/HCPCS: 83036; 99212 ==

== ENCOUNTER 2024-10-14 12:57 | Outpatient (AMB) | payer MEDICARE, SELFPAY ==
[2024-10-14 13:04] VITALS: BP 156/70; PULSE 90; O2SAT 96; BMI 33.1
--- NOTE | 2024-10-14 13:04 | MHC.OFFVIS ---
Vital Signs 10/14/24 13:04 Height 5 ft 8 in Weight 218 lb BMI 33.1 BP 156/70 H Blood Pressure Location Rt brachial Position Sitting Pulse 90 Pulse Source Pulse Oximeter Pulse Oximetry (%) 96 Oxygen Delivery Method Room Air Intake Visit Reasons: Hypoxia/COPD/Pneumonia Humanities And Languages Professor Required: No Highway Maintenance Technician: Highway Maintenance Technician offered & declined Accompanied by: Self / Same As Patient Allergies SADI Inhibitors [SADI INHIBITORS] Allergy (Unknown, Verified 10/14/24 13:09) FACIAL SWELLING lisinopril [LISINOPRIL] Allergy (Unknown, Verified 10/14/24 13:09) FACIAL SWELLING, hives, lip edema oxycodone [From PERCOCET] Allergy (Unknown, Verified 10/14/24 13:09) JOINT STIFFNESS peanut [PEANUTS] Allergy (Unknown, Verified 10/14/24 13:09) SWELLING,THROAT,HIVES Medication List - Last Reconciled 10/14/24 by Justine Smith LPN albuterol sulfate 90 mcg/actuation 2 puffs inhalation Q4H PRN amlodipine 10 mg PO DAILY aspirin 81 mg PO DAILY blood sugar diagnostic USE DIRECTED DAILY blood sugar diagnostic ([employer] Ultra Test strips) check blood sugar one time daily prn as directed brinzolamide-brimonidine 1-0.2 % (Simbrinza) 1 drp ophthalmic (eye) BID [id number] 160-9-4.8 mcg/actuation (Breztri Aerosphere) 2 inhalations inhalation BID chlorthalidone 50 mg PO DAILY epinephrine (EpiPen) 0.3 mg (0.3 mL) IM Q10M PRN 30 days finasteride 5 mg PO DAILY hydralazine 50 mg PO TID latanoprost 0.005% 1 drp ophthalmic (eye) BEDTIME metformin 1,000 mg PO BID 90 days rosuvastatin 10 mg PO BEDTIME tamsulosin 0.4 mg PO BID HPI HPI Hypoxia/COPD/Pneumonia: Details: Taqueria is a pleasant 78-year-old male, former smoker, 40 pyh quit 30 years ago, with underlying COPD, asthma, MISTY on CPAP, hypertension, diabetes, coronary artery disease and hyperlipidemia. He had recent admission 05/15-05/23 for acute respiratory failure with hypoxia secondary to bilateral multifocal pneumonia. He was treated with IV Solu-Medrol, doxycycline and ceftriaxone. He ultimately discharged with prednisone taper, Levaquin p.o. times 14 days as well as 2 L of supplemental oxygen at rest and 4 L with ambulation. 6MWT was performed at the last visit, patient no longer requires supplemental oxygen, however continues to use 2L NOC with CPAP. During the recent sleep titration study, there was resolution of obstructive events and hypoxemia at 14 cm H2O pressure, though currently maintained at 20 cm H2O due to historical inadequacies with lower pressures. He would like to discuss with sleep medicine at follow up to keep pressures at 20 cm H20 as he feels he is benefitting from this. His respiratory symptoms are moderately controlled using Breztri and albuterol MDI QD for ongoing dyspnea. He does note that his activity level is minimal which may be contributing to overall exercise intolerance. He denies any visits to urgent care or hospitalizations since the last visit related to respiratory distress. [facility] Medical History Hypokalemia COVID Benign prostatic hyperplasia with urinary obstruction MISTY on CPAP Bifascicular block Atherosclerotic cardiovascular disease COPD (chronic obstructive pulmonary disease) Carotid stenosis Hypertension Diabetes Hypercholesteremia Surgical History H/O colonoscopy Hx of elbow surgery History of eyelid surgery S/P TURP (status post transurethral resection of prostate) (~2019) Status post carotid surgery Hx of cataract Family History Father CVD (cardiovascular disease) Mother No problems noted. Sister Cancer Sister Cancer Social History Household Members: None Housing: House Do you presently have visiting nurse or other home services: Yes Alcohol intake: current Alcohol intake frequency: a few times a week Comment: pt. is ambulatory, steady on foot. Patient Tobacco Use Status: Former Tobacco user e-Cigarette/Vaping Use: Never Used Second Hand Smoke Exposure: No Substance Use Type: Prescription Drugs Advance Directives Date on File: 04/27/24 service: No Current occupational status: retired Current occupational exposures/hazards: No Cognitive needs: No Hearing needs: No Vision needs: No Review of Systems Const Denies chills, Denies excessive sweating, Denies fever(s), Denies headache(s) and Denies night sweats Eyes Denies dry eyes, Denies irritation and Denies itchy eyes ENT Reports Normal hearing present, Denies headache(s), Denies nasal congestion, Denies nasal discharge and Denies sore throat Card Denies chest pain, Denies chest pain at rest, Denies chest pain with activity, Denies claudication, Denies leg edema, Denies dyspnea, Denies orthopnea and Denies paroxysmal nocturnal dyspnea Resp Denies chest congestion, Denies cough, Denies excessive phlegm production, Denies pain on inspiration, Denies pain with cough, Denies dyspnea, Denies stridor and Denies wheezing Musc Denies myalgias Neuro Reports Normal hearing present and Denies headache(s) Endo Denies excessive sweating Barry/Lymph Denies lymphadenopathy Aller/Immun Denies itchy eyes, Denies seasonal rhinorrhea and Denies wheezing Physical Exam Vital Signs: BMI result Body Mass Index 33.1 Const General: cooperative, healthy appearing, comfortable, no acute distress, well developed and alert Nutritional Appearance: obese Orientation/consciousness: patient oriented x3 Limitations: no limitations HEENT Head: Yes normal to inspection, Yes normocephalic and Yes atraumatic Ears: hearing grossly normal bilaterally and external ears normal Eyes General: appearance normal, both eyes and all related structures Eyelids: Yes eyelids normal Sclerae: sclerae normal EOM: EOMs intact bilaterally Neck Neck: Yes normal visual inspection and Yes no lymphadenopathy Lymphatic: no lymphadenopathy noted Chest Chest palpation & inspection: normal inspection of the chest Resp Effort & Inspection: normal respiratory effort, able to speak in complete sentences, no audible wheezes, no cough, no stridor, not tachypneic, no tripod positioning and no use of accessory muscles Auscultation: diminished lung sounds Cardio Jugular venous distension: no JVD Rate: regular rate Rhythm: regular rhythm Skin Other: warm, dry General skin exam: no rashes or lesions noted Neuro General: patient oriented x3 Cranial nerves: Yes Normal hearing present Cognition (Neuro): normal cognition Gait exam (Neuro): Normal gait present Extrem General: Yes normal to inspection, Yes capillary refill normal, Yes no clubbing, cyanosis or edema and Yes no pedal edema Psych Appearance: grossly normal and well kempt Speech and movement: Normal speech and movement present and Clear speech present Affect: normal affect Attitude: cooperative Thought process: Normal thought process present Thought content: Normal thought content present Insight: Good insight present (Psych) Judgement: Good judgement present (Psych) Assessment & Plan Assessment & Plan (1) COPD (chronic obstructive pulmonary disease): Code(s): J44.9 - Chronic obstructive pulmonary disease, unspecified Category: Medical Qualifiers: COPD type: COPD with acute lower respiratory infection Qualified Code(s): J44.0 - Chronic obstructive pulmonary disease with (acute) lower respiratory infection (2) MISTY on CPAP: Code(s): G47.33 - Obstructive sleep apnea (adult) (pediatric); Z99.89 - Dependence on other enabling machines and devices Category: Medical (3) Nocturnal hypoxemia: Code(s): G47.34 - Idiopathic sleep related nonobstructive alveolar hypoventilation Category: Medical Plan At this time, Taqueria reports good control of respiratory symptoms on current regimen, advised to continue. Reviewed inlab split PSG which revealed severe obstructive sleep apnea with nocturnal hypoxemia, effective resolution of events at 14 cm H2O pressure. He is going to reach out to sleep medicine regarding current pressures as he would like to maintain CPAP therapy at 20 cm H2O. At this time he no longer requires nocturnal supplemental oxygen. All questions were answered and patient is in agreement of plan. Will follow-up in 6 months, or sooner if needed. Coding Level of Care Code Est Pt Level 4 (12246) Diagnoses Chronic obstructive pulmonary disease with acute lower respiratory infection J44.0 COPD type: COPD with acute lower respiratory infection MISTY on CPAP G47.33; Z99.89 Nocturnal hypoxemia G47.34
--- OUTSIDE RECORDS SUMMARY | 2024-10-14 15:48 | XMS_ITS | Clinical Summary ---
Author Organization [facility] it Address [address] [place] [address] Care Team Providers Care Grant Specialist Name Role Phone Denis Diehl MD Primary Care Provider Surgical History Surgery Date Site/Laterality Comments ANKLE SURGERY PROCEDURE:ANKLE SURGERY Medical History Medical History Date Comments Asthma DX:Asthma COPD (chronic obstructive pu lmonary disease) ([facility]) DX:COPD (chronic obstructive pulmonary disease) ([facility]) Diabetes mellitus ([facility]) DX:D iabetes mellitus ([facility]) Hypertension DX:Hypertension Family History Medical [...] age to complete this topic Care Teams Grant Specialist Relationship Specialty Start Date End Date Denis Diehl MD [address] [place] [address] Dr Citlali MA PCP - General 09/05/22
--- OUTSIDE RECORDS SUMMARY | 2024-10-14 15:48 | XMS_ITS | Clinical Summary ---
Author Organization [facility] Address [address] [place] [id number] Care Team Providers Care Edge Bonder Name Role Phone Denis Diehl MD Primary Care Provider [phone] Allergies Active Allergy Reactions Criticality Noted Date [...] age to complete this topic Care Teams Edge Bonder Relationship Specialty Start Date End Date Denis Diehl MD [address] [place] [address] PCP - General Family Medicine 09/05/22
== END 2024-10-14 13:22 | disposition home or self-care (01) ==
PROVIDERS: PCP Family Medicine; Visit Provider Nurse Practitioner Family
DX: J44.0 Chronic obstructive pulmonary disease with (acute) lower respiratory infection (principal); G47.33 Obstructive sleep apnea (adult) (pediatric); Z99.89 Dependence on other enabling machines and devices; G47.34 Idiopathic sleep related nonobstructive alveolar hypoventilation
CPT/HCPCS: 99214

== ENCOUNTER → 2024-10-14 12:57 | Outpatient (BNVA) | payer MEDICARE, SELFPAY | PROVIDERS: PCP Family Medicine; Visit Provider Nurse Practitioner Family | DX: J44.0 Chronic obstructive pulmonary disease with (acute) lower respiratory infection (principal); R09.02 Hypoxemia; G47.33 Obstructive sleep apnea (adult) (pediatric); G47.34 Idiopathic sleep related nonobstructive alveolar hypoventilation; Z87.891 Personal history of nicotine dependence; Z99.89 Dependence on other enabling machines and devices | CPT/HCPCS: 99212 ==

== ENCOUNTER 2024-11-18 08:34 | Outpatient (AMB) | payer MEDICARE, SELFPAY ==
--- NOTE | 2024-11-18 08:42 | MHC.OFFVIS ---
Vital Signs 11/18/24 08:46 Height 5 ft 8 in Weight 218 lb BMI 33.1 BP 140/76 H Blood Pressure Location Lt brachial Position Sitting Pulse 83 Pulse Source Pulse Oximeter Pulse Oximetry (%) 96 Oxygen Delivery Method Room Air Intake Visit Reasons: 1yr follow up Sleep Apnea/ Conf Intake Note: Patient presents follow up MISTY. Compliance in chart In Tube Conversion Technician Required: No Accompanied by: Self / Same As Patient Allergies SADI Inhibitors [SADI INHIBITORS] Allergy (Unknown, Verified 11/18/24 08:48) FACIAL SWELLING lisinopril [LISINOPRIL] Allergy (Unknown, Verified 11/18/24 08:48) FACIAL SWELLING, hives, lip edema oxycodone [From PERCOCET] Allergy (Unknown, Verified 11/18/24 08:48) JOINT STIFFNESS peanut [PEANUTS] Allergy (Unknown, Verified 11/18/24 08:48) SWELLING,THROAT,HIVES HPI Comments Details: 78 y/o male patient presents for follow up of MISTY on CPAP. He is on CPAP at 20 cmH2O and no oxygen therapy. He was titrated to 14cm H20 09/2024 and he declines to continue at these pressures as he is unable to get sufficient air intake. The CPAP compliance and therapy and response: His daily average use is >4 hours is 89/90 days and avg total is 8hours and 25min Pressures max 63obR84, EPR signal timer Level 3 The AHI is 6.2 with max leaks at 65.2. He sleeps for about 7 hours a night with one bathroom break and still feels fatigued in the morning. He wants to stay at 33lkS44 despite being titrated at 40ziS47 recently by Pulmonology as he no longer is on O2. He c/o L. shoulder pain, L.and R. hip pain and LBP, sees a chiropractor for adjustments as needed, and takes potassium and COq10 supplements. His A1c is elevated today. We discussed patho-physiology of sleep today, and reaching efficient levels of N3 and REM sleep. 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 He drinks 2 drinks on the weekend. He cleans his mask, replaces tubing and filters as needed and changes the water in the reservoir when required. [facility] Medical History Hypokalemia COVID Benign prostatic hyperplasia with urinary obstruction MISTY on CPAP Bifascicular block Atherosclerotic cardiovascular disease COPD (chronic obstructive pulmonary disease) Carotid stenosis Hypertension Diabetes Hypercholesteremia Surgical History H/O colonoscopy Hx of elbow surgery History of eyelid surgery S/P TURP (status post transurethral resection of prostate) (~2019) Status post carotid surgery Hx of cataract Family History Father CVD (cardiovascular disease) Mother No problems noted. Sister Cancer Sister Cancer Social History Household Members: None Housing: House Do you presently have visiting nurse or other home services: Yes Alcohol intake: current Alcohol intake frequency: a few times a week Comment: pt. is ambulatory, steady on foot. Patient Tobacco Use Status: Former Tobacco user e-Cigarette/Vaping Use: Never Used Second Hand Smoke Exposure: No Substance Use Type: Prescription Drugs Advance Directives Date on File: 04/27/24 service: No Current occupational status: retired Current occupational exposures/hazards: No Cognitive needs: No Hearing needs: No Vision needs: No Physical Exam Vital Signs: Last Vital Signs Pulse 83 11/18/24 08:46 BP 140/76 H 11/18/24 08:46 Pulse Ox 96 11/18/24 08:46 Oxygen Delivery Method Room Air 11/18/24 08:46 BMI result Body Mass Index 33.1 Const General: cooperative Orientation/consciousness: patient oriented x3 Resp Effort & Inspection: normal respiratory effort and able to speak in complete sentences Neuro General: patient oriented x3 and gait normal Cranial nerves: Yes CN's II-XII intact bilaterally Cognition (Neuro): normal cognition Psych Appearance: grossly normal Mental Status: mental status grossly normal Speech and movement: Normal speech and movement present Results Reviewed Results Reviewed: Titration study 09/2024 to 01kdM31, and he is comfortable on 29igX83 without the need for oxygen therapy. MISTY Compliance 07/2024 - 11/10/2024 Total usage >4 hours is 89/90 days and avg us is 8 hours and 25min CPAP press Max: 62fsK33 EPR fulltime on Level 3 Leaks 65.2 and AHI is 6.2 Assessment & Plan Assessment & Plan (1) MISTY (obstructive sleep apnea): Code(s): G47.33 - Obstructive sleep apnea (adult) (pediatric) Category: Medical (2) Daytime sleepiness: Code(s): R40.0 - Somnolence Category: Medical (3) Sleep apnea: Comment: Hypoxia with MISTY and COPD exacerbations he was titrated to 90ctB56 but declined the pressure ronan Code(s): G47.30 - Sleep apnea, unspecified Category: Medical Qualifiers: Sleep apnea type: unspecified type Qualified Code(s): G47.30 - Sleep apnea, unspecified Plan Continue on CPAP therapy at 72miL92 and f/u for compliance in 6months. F/u with Labs and monitor A1c levels HTN is not well controlled today, he is experimenting with taking the Amlodipine at night versus daytime. Patient Instructions: Sleep Hygiene provided: set a scheduled bedtime and wake time to help regulate the circadian rhythm and balance the release of pituitary hormones. Sleep in a dark room, temperatures below 68 degrees, and no devices n bed. Limit caffeinated products 6 hours prior to bed, and limit fluids 2-4 hours prior to bed. Gentle night yoga, diffusing essential oils, and playing soft music can be relaxing. HTN is the number one modifiable risk factor to prevent cardiovascular events. Walking a nutritious diet, drinking a large quantity of water and eating a low carb diet can reduce weight and BP. Coding Level of Care Code Est Pt Level 4 (29653) Diagnoses MISTY (obstructive sleep apnea) G47.33 Daytime sleepiness R40.0 Sleep apnea, unspecified type G47.30 Sleep apnea type: unspecified type Time Spent (min) 30 Comment Baseline
[2024-11-18 08:46] VITALS: BP 140/76; PULSE 83; O2SAT 96; BMI 33.1
--- OUTSIDE RECORDS SUMMARY | 2024-11-18 08:55 | XMS_ITS | Clinical Summary ---
Author Organization [facility] it Address [address] [place] [address] Care Team Providers Care Film Reader Name Role Phone Denis Diehl MD Primary Care Provider Surgical History Surgery Date Site/Laterality Comments ANKLE SURGERY PROCEDURE:ANKLE SURGERY Medical History Medical History Date Comments Asthma DX:Asthma COPD (chronic obstructive pu lmonary disease) ([facility]) DX:COPD (chronic obstructive pulmonary disease) ([facility]) Diabetes mellitus ([facility]) DX:D iabetes mellitus ([facility]) Hypertension DX:Hypertension Family History Medical History [...] age to complete this topic Care Teams Film Reader Relationship Specialty Start Date End Date Denis Diehl MD [address] [place] [address] Dr Citlali [place] PCP - General 09/05/22
--- OUTSIDE RECORDS SUMMARY | 2024-11-18 08:55 | XMS_ITS | Clinical Summary ---
Author Organization [facility] Address [address] [place] [address] Care Team Providers Care Forensic Locksmith Name Role Phone Denis Diehl MD Primary Care Provider [phone] Allergies Active Allergy Reactions Criticality Noted Date [...] age to complete this topic Care Teams Forensic Locksmith Relationship Specialty Start Date End Date Denis Diehl MD [address] [place] [address] PCP - General Family Medicine 09/05/22
--- OUTSIDE RECORDS SUMMARY | 2024-11-18 08:55 | XMS_ITS | Patient Health Record ---
Author Organization [facility] Address [address] [place] [address] Care Team Providers Care Inspector Structural Bonding Name Role Phone Denis Diehl Primary Care Provider UnavailGary Duarte Unavailable [phone] Allergies Allergen (clinical drug ingredient) Drug/Non Drug Allergy documented on EMR Reaction Allergy Type Onset Date Status acetaminophen / oxycodone Percocet Unknown Drug Allergy Active lisinopril Lisinopril lip swollen Drug Allergy Act mauricio Reason For Referral No Information Medications Medication SIG (Take, Route, Frequency, Duration) Notes [...] TIMES A DAY Oral for 30 Active Immunizations Vaccine Route Administration Date Status Comme nts Influenza Unknown 04/20/2016 Administered Influenza Unknown 06/02/2020 Administered Influenza Unknown 06/20/2022 Administered Social History Alcohol Screen Question Answer Notes Did you [...] Never (0 point) Points 2 Interpretation Negative Section Notes: Nonsmoker for > 25 years; m oderate EtOH on the weekends Nonsmoker for > 25 years; m oderate EtOH on the weekends Nonsmoker for > 25 years; a couple of drinks on the weekend Problems Problem Type SNOMED Code ICD Code Onset Dates Problem Status W/U Status Risk Notes Problem 420430687 Encounter for screening for malignant neoplasm of colon (Z12.11) Active confirmed Problem 185608635 History of adenomatous polyp of colon (Z86.010) Active confirmed Problem Screening for malignant neoplasm of rectum (114219614) Encounter for screening for malignant neoplasm of rectum (Z12.12) Active confirmed Problem 915700425 Long-term use of aspirin therapy (Z79.82) Active confirmed Problem 44445519 Constipation, unspecified constipation type (K59.00) Active confirmed Problem Diverticulosis of colon (852520495) Diverticulosis of colon (K57.30) Active confirmed Plan Of Treatment Pending Test Test Name Order Date Pathology 03/19/2023 Future Test Test Name Order Date COLONOSCOPY 06/09/2011 COLONOSCOPY 11/28/2016 COLONOSCOPY 07/06/2022 Insurance Providers Payer Name Payer Address Payer Phone Subscriber Number Group Number Insured Name Patient Relationship to Insured Coverage Start Date Coverage End Date MEDICARE OF [place] [address] [place] [id number] [phone] [id number] EDE SANTANA Self - patient is the insured [facility] [employer] [address] [place] [address] [id number] EDE SANTANA Self - patient is the insured Medical (General) History Medical History History ICD Code Tubular adenomas removed in 2000, 2002, and 2005--he had a negative colonoscopy in 08/2011 except for some diverticulosis and internal hemorrhoids. Colonoscopy 02/2017 with small tubular adenomas removed. Asthma/COPD Hyperlipidemia NIDDM Hypertension He denies any history of DE, stroke, nor kidney disease Sleep apnea-uses CPAP BPH Surgical History Surgery Date(Month/Year) Cataracts/Lens implants Right hand surgery Left ankle surgery Left carotid artery 2015 TURP 2019
== END 2024-11-18 09:53 | disposition home or self-care (01) ==
LOC: HO.HSMS 08:35
PROVIDERS: PCP Family Medicine; Visit Provider Physician Assistant Medical
DX: G47.33 Obstructive sleep apnea (adult) (pediatric) (principal); R40.0 Somnolence; G47.30 Sleep apnea, unspecified
CPT/HCPCS: 99214

== ENCOUNTER → 2024-11-18 08:34 | Outpatient (BNVA) | payer MEDICARE, SELFPAY | PROVIDERS: PCP Family Medicine; Visit Provider Physician Assistant Medical | DX: G47.33 Obstructive sleep apnea (adult) (pediatric) (principal); G47.30 Sleep apnea, unspecified; R40.0 Somnolence; R53.83 Other fatigue | CPT/HCPCS: 99212 ==

== ENCOUNTER 2025-01-05 09:18 | Outpatient (REF) | payer MEDICARE, SELFPAY ==
--- NOTE | ~2025-01-05 | US_ITS ---
EXAMINATION: BILATERAL CAROTID ULTRASOUND WITH DOPPLER HISTORY: I65.23 - Occlusion and stenosis of bilateral carotid arteries COMPARISON: Comparison is made with the prior examination dated 11/29/2023. TECHNIQUE: Real time and Color and Spectral doppler ultrasonography of the carotid and vertebral arteries was performed in multiple planes. FINDINGS: There is mild plaque involving both internal carotid arteries. VERTEBRAL FLOW DIRECTION: Antegrade bilaterally. PEAK SYSTOLIC VELOCITIES (in cm/sec): RIGHT: CCA: Prox: 107 Dist: 101 ICA: Prox: 80.1 Mid: 86.7 Dist: 70.2 ICA/CCA Ratio: 0.81 ECA: 150 Peak ICA end diastolic velocity (EDV): 15.9 LEFT: CCA: Prox: 121 Dist: 135 ICA: Prox: 122 Mid: 76.7 Dist: 63.3 ICA/CCA Ratio: 0.90 ECA: 133 Peak ICA end diastolic velocity (EDV): 18.8 US/US carotid duplex BI IMPRESSION: Findings consistent with 0-49% stenosis of the bilateral internal carotid arteries. Electronically signed by: Gary Marcial MD 01/05/2025 11:36 AM EDT
--- OUTSIDE RECORDS SUMMARY | 2025-01-05 09:30 | XMS_ITS | Clinical Summary ---
Author Organization [facility] it Address [address] [place] [address] Care Team Providers Care Horticultural Services Supervisor Name Role Phone Denis Diehl MD Primary Care Provider [phone] Surgical History Surgery Date Site/Laterality Comments ANKLE SURGERY PROCEDURE:ANKLE SURGERY Medical History Medical History Date Comments Asthma DX:Asthma COPD (chronic obstructive pu lmonary disease) (CMS/HCC V24, CMS/[facility] V28) DX:COPD (chronic o bstructive pulmonary disease) (HCC) Diabetes mellitus (CMS/[facility] V 24, [facility] V28) DX:Diabetes mellitus (HCC) Hypertension DX:Hypertension Family History Medical History Relation [...] Vaccines (1 of 2) 1996 RSV Immunization Adult Patie nts (1 - 1-dose 75+ series) 2021 Cholesterol Screening (Lipid Panel) 09/23/2023 Depression Screening 09/23/2023 Falls Risk Assessment 09/23/2023 Hepatitis C Screening 09/23/2023 Social Influencers of Health Screening 09/23/2023 COVID-19 Vaccine ( - 2023-2 5 season) 2024 Influenza Vaccine (Season Ended) 2025 HIB Vaccines Aged Out No longer eligi [...] age to complete this topic Meningococcal B Vaccine Aged Out No l onger eligible based on patient's age to complete this topic RSV Immunization Patients Un leonora 20 months Aged Out No longer eligible b ased on patient's age to complete this topic Varicella Vaccines Aged Out No longer eligible based on patient's age to complete this topic Care Teams Horticultural Services Supervisor Relationship Specialty Start Date End Date Denis Diehl MD [address] [place] [address] Dr Citlali MA PCP - General 09/05/22
--- OUTSIDE RECORDS SUMMARY | 2025-01-05 09:30 | XMS_ITS | Clinical Summary ---
Author Organization [facility] Address [address] [place] [address] Care Team Providers Care Supervisor Drapery Hanging Name Role Phone Denis Diehl MD Primary Care Provider [phone] Allergies Active Allergy Reactions Criticality Noted Date [...] age to complete this topic Care Teams Supervisor Drapery Hanging Relationship Specialty Start Date End Date Denis Diehl MD [address] [place] [address] PCP - General Family Medicine 09/05/22
== END 2025-01-05 09:19 | disposition home or self-care (01) ==
LOC: HO.US 09:18
PROVIDERS: PCP Family Medicine; Visit Provider Surgery Vascular Surgery
DX: I65.23 Occlusion and stenosis of bilateral carotid arteries (principal)
CPT/HCPCS: 93880

== ENCOUNTER → 2025-01-05 09:21 | Outpatient (BNV) | payer MEDICARE, SELFPAY | PROVIDERS: PCP Family Medicine; Visit Provider Radiology Diagnostic Radiology | DX: I65.23 Occlusion and stenosis of bilateral carotid arteries (principal) | CPT/HCPCS: 93880 ==

== ENCOUNTER 2025-01-07 09:00 | Outpatient (AMB) | payer MEDICARE, SELFPAY ==
--- NOTE | 2025-01-07 09:43 | A.OFFPC_ITS ---
Vital Signs 01/07/25 09:50 Height 5 ft 8 in Weight 217 lb 2 oz BMI 33.0 BP 140/62 H Blood Pressure Location Lt brachial Position Sitting Pulse 83 Pulse Source Pulse Oximeter Temp 98.2 F Temp Source Temporal Artery Scan Pulse Oximetry (%) 94 Oxygen Delivery Method Room Air Intake Visit Reasons: f/u hypertension, DM Intake Note: Javier presents in the office today for a follow up to hypertension and DM. Allergies SADI Inhibitors [SADI INHIBITORS] Allergy (Unknown, Verified 01/07/25 09:48) FACIAL SWELLING lisinopril [LISINOPRIL] Allergy (Unknown, Verified 01/07/25 09:48) FACIAL SWELLING, hives, lip edema oxycodone [From PERCOCET] Allergy (Unknown, Verified 01/07/25 09:48) JOINT STIFFNESS peanut [PEANUTS] Allergy (Unknown, Verified 01/07/25 09:48) SWELLING,THROAT,HIVES Medication List - Last Reconciled 01/07/25 by Denis Diehl MD albuterol sulfate 90 mcg/actuation 2 puffs inhalation Q4H PRN amlodipine 10 mg PO DAILY aspirin 81 mg PO DAILY blood sugar diagnostic USE DIRECTED DAILY blood sugar diagnostic (Orabrushuch Ultra Test strips) check blood sugar one time daily prn as directed brinzolamide-brimonidine 1-0.2 % (Simbrinza) 1 drp ophthalmic (eye) BID vvpoyyqxhe-icfutzyq-cffwmvrdmx 160-9-4.8 mcg/actuation (Breztri Aerosphere) 2 inhalations inhalation BID chlorthalidone 50 mg PO DAILY epinephrine (EpiPen) 0.3 mg (0.3 mL) IM Q10M PRN 30 days finasteride 5 mg PO DAILY gabapentin 600 mg (2 x 300 mg) PO BEDTIME 30 days MDD 300mg PO glipizide ER 2.5 mg PO DAILY 90 days hydralazine 50 mg PO QID 90 days latanoprost 0.005% 1 drp ophthalmic (eye) BEDTIME metformin 1,000 mg PO BID 90 days rosuvastatin 10 mg PO BEDTIME tamsulosin 0.4 mg PO BID Tobacco use date assessed: 01/07/25 Fall risk assessment: No Falls in past year Last assessed Fall Risk: 01/07/25 Dental Screening Dental Screen Date: 01/07/25 Did you have a dental visit in the last 12 months?: Yes Did you have a dental problem in the last 6 months where you did not have access to dental care?: No Was dental information given to patient?: Patient has dentist HPI f/u hypertension, DM HPI Details 79 y/o male presents to f/u HTN, DM. Prior A1c 6.9%. A1c today 7.1%. He is on metformin 1000mg b.i.d. Blood pressure today 140/62, 83p. He is on hydralazine 50mg t.i.d, amlodipine 10mg daily. Hx of atherosclerotic cardiovascular disease. HPI Comments History of Present Illness Details Documentation assistance for Denis Diehl MD, was provided by Michael Jaquez, Concrete Pipe Making Machine Operator on 01/07/2025 at 10:28 AM EST. I, Dr. Diehl, have read, observed, and verified documentation. [facility] Medical History Hypokalemia COVID Benign prostatic hyperplasia with urinary obstruction MISTY on CPAP Bifascicular block Atherosclerotic cardiovascular disease COPD (chronic obstructive pulmonary disease) Carotid stenosis Hypertension Diabetes Hypercholesteremia Surgical History H/O colonoscopy Hx of elbow surgery History of eyelid surgery S/P TURP (status post transurethral resection of prostate) (~2019) Status post carotid surgery Hx of cataract Family History Father CVD (cardiovascular disease) Mother No problems noted. Sister Cancer Sister Cancer Social History (Updated 01/07/25 @ 09:50 by Alyssa Garcia MA) Household Members: None Housing: House Do you presently have visiting nurse or other home services: Yes Alcohol intake: current Alcohol intake frequency: a few times a week Comment: pt. is ambulatory, steady on foot. Patient Tobacco Use Status: Former Tobacco user e-Cigarette/Vaping Use: Never Used Second Hand Smoke Exposure: No Use of substances other than those prescribed or required for medical reasons: Yes Substance Use Type: Prescription Drugs Advance Directives Date on File: 04/27/24 service: No Current occupational status: retired Current occupational exposures/hazards: No Cognitive needs: No Hearing needs: No Vision needs: No Questionnaire Thrive Questionnaire Date Thrive assessed: 10/02/24 I am a: Patient What is your living situation today?: I have a steady place to live Within the past 12 months, did the food you bought not last and you didn't have the money to get more?: Never true Within the past 12 months, did you worry whether your food would run out before you got money to buy more?: Never true Do you have trouble paying for medicines?: No Do you have trouble getting transportation to medical appointments?: No Do you have trouble paying your heating and electricity bill?: No Do you have trouble taking care of your child, family member or friend?: No Do you have trouble with day-to-day activities such as bathing, preparing meals, shopping, managing finances, etc.?: No Are you currently unemployed and looking for a job?: No Are you interested in more education?: No Please select the resources that you would like help with: None Currently or been in a relationship where the following occur: No concerns reported THRIVE Score: 0 RUDY-7 AMB Questionnaire RUDY-7 Date RUDY - 7 assessed: 10/04/23 Source: Developed by Drs. Gary Damian, Elo Najera, Martin Ambrocio and colleagues, with an educational daina from [employer]. Review of Systems Const Denies chills, Denies fatigue, Denies fever(s), Denies headache(s) and Denies weakness ENT Denies dizziness and Denies headache(s) Card Denies chest pain, Denies lightheadedness, Denies dyspnea and Denies other (Palpitations) Resp Denies cough, Denies dyspnea, Denies wheezing and Denies other ( shortness of breath) Musc Denies numbness and Denies tingling Neuro Denies dizziness, Denies headache(s), Denies numbness, Denies tingling, Denies paresthesias and Denies weakness Psych Denies anxiety and Denies depression Endo Denies fatigue Aller/Immun Denies wheezing Physical exam (Primary Care) Vital Signs: Last Vital Signs Temp 98.2 F 01/07/25 09:50 Pulse 83 01/07/25 09:50 BP 140/62 H 01/07/25 09:50 Pulse Ox 94 01/07/25 09:50 Oxygen Delivery Method Room Air 01/07/25 09:50 BMI result Body Mass Index 33.0 Tobacco/Smoking Status: Tobacco use Status Tobacco use date assessed 01/07/25 01/07/25 09:55 Patient Tobacco Use Status Former Tobacco user 01/07/25 09:50 e-Cigarette/Vaping Use Never Used 01/07/25 09:50 Thrive Assessment: Date of Thrive Assessment Date Thrive assessed 10/02/24 01/07/25 09:45 Currently or been in a relationship where the following occur: No concerns reported Const General: no acute distress and well developed Nutritional Appearance: well nourished Orientation/consciousness: patient oriented x3 HENMT Head: Yes normocephalic and Yes atraumatic Eyes General: appearance normal, both eyes and all related structures Pupils: Equal, round and reactive pupils present EOM: EOMs intact bilaterally Resp Effort & Inspection: normal respiratory effort Auscultation: clear to auscultation bilaterally Cardio Rate: regular rate Rhythm: regular rhythm Heart sounds: S1 normal heart sound present, S2 normal heart sound present, no gallops, no murmurs and no rubs Neuro General: patient oriented x3 and gait normal Cranial nerves: Yes Equal, round and reactive pupils present Psych Affect: normal affect Coding Level of Care Code Est Pt Level 4 (00597) Diagnoses Essential hypertension I10 Diabetes type 2, controlled E11.9 Diabetes 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 insulin use: without petroleum terminal plant operator use Atherosclerotic cardiovascular disease I25.10 Assessment & Plan Assessment & Plan (1) Essential hypertension: Code(s): I10 - Essential (primary) hypertension Category: Medical Plan: Blood?pressure?is?still?not?well?controlled.??Goal?is?less?than?130/80 Will?increase?hydralazine?to?4?times?daily?and?continue?his?other?blood?pressure ?medications?as?prescribed (2) Diabetes type 2, controlled: Code(s): E11.9 - Type 2 diabetes mellitus without complications Category: Medical Qualifiers: Diabetes mellitus skilled nursing insulin use: without petroleum terminal plant operator use Plan: A1c?has?worsened?from?6.9%?to?7.1% Continue?metformin Adding?glipizide?ER?2.5?mg?q.a.m. He?has?an?eye?exam?scheduled?for?early?January (3) Atherosclerotic cardiovascular disease: Code(s): I25.10 - Atherosclerotic heart disease of [place] coronary artery without angina pectoris Category: Medical Plan: Stable Continue?rosuvastatin?for?cholesterol Continue?to?blood?pressure?control?and?blood?sugar?control Follow-up?with??Dick?as?recommended Orders: Orders Microalbumin, Random (w Creat) Today I10 - Essential (primary) hypertension Basic Metabolic Panel Today I10 - Essential (primary) hypertension, Z00.00 - Encounter for general adult medical examination without abnormal findings Medications: New glipizide ER 2.5 mg PO DAILY 90 days 90 tabs 3RF Changed From hydralazine 50 mg PO TID I10 - Essential (primary) hypertension To hydralazine 50 mg PO QID 90 days 360 tabs 3RF I10 - Essential (primary) hypertension
[2025-01-07 09:50] VITALS: BP 140/62; PULSE 83; TEMP 36.8; O2SAT 94; BMI 33.0
--- OUTSIDE RECORDS SUMMARY | 2025-01-07 10:17 | XMS_ITS | Clinical Summary ---
Author Organization [facility] Address [address] [place] [address] Care Team Providers Care Pattern Grader Supervisor Name Role Phone Denis Diehl MD Primary Care Provider Surgical History Surgery Date Site/Laterality Comments ANKLE SURGERY PROCEDURE:ANKLE SURGERY Medical History Medical History Date Comments Asthma DX:Asthma COPD (chronic obstructive pu lmonary disease) (CMS/HCC V24, CMS/[facility] V28) DX:COPD (chronic o bstructive pulmonary disease) (HCC) Diabetes mellitus (CMS/[facility] V 24, [facility] V28) DX:Diabetes mellitus (HCC) Hypertension DX:Hypertension Family [...] age to complete this topic Care Teams Pattern Grader Supervisor Relationship Specialty Start Date End Date Denis Diehl MD [address] [place] [address] Dr Citlali MA PCP - General 09/05/22
--- OUTSIDE RECORDS SUMMARY | 2025-01-07 10:17 | XMS_ITS | Clinical Summary ---
Author Organization [facility] Address [address] [place] [id number] Care Team Providers Care Steward/Stewardess [employer] Name Role Phone Denis Diehl MD Primary Care Provider [phone] Allergies Active Allergy Reactions Criticality Noted Date [...] age to complete this topic Care Teams Steward/[employer]ward[employer] Relationship Specialty Start Date End Date Denis Diehl MD [address] [place] [address] PCP - General Family Medicine 09/05/22
== END 2025-01-07 10:44 | disposition home or self-care (01) ==
LOC: HO.HMCFM 09:01
PROVIDERS: PCP Family Medicine; Visit Provider Family Medicine
DX: I10 Essential (primary) hypertension (principal); E11.9 Type 2 diabetes mellitus without complications; I25.10 Atherosclerotic heart disease of native coronary artery without angina pectoris

== ENCOUNTER → 2025-01-07 09:00 | Outpatient (BNVA) | payer MEDICARE, SELFPAY | PROVIDERS: PCP Family Medicine; Visit Provider Family Medicine | DX: Z13.89 Encounter for screening for other disorder (principal) | CPT/HCPCS: 99212 ==

== ENCOUNTER 2025-01-07 10:53 | Outpatient (REF) | payer MEDICARE, SELFPAY ==
--- OUTSIDE RECORDS SUMMARY | 2025-01-07 12:21 | XMS_ITS | Clinical Summary ---
Author Organization [facility] ity Address [address] [place] [address] Care Team Providers Care Top Inventory Control Executive Name Role Phone Denis Diehl MD Primary Care Provider [phone] Surgical History Surgery Date Site/Laterality Comments ANKLE SURGERY PROCEDURE:ANKLE SURGERY Medical History Medical History Date Comments Asthma DX:Asthma COPD (chronic obstructive pu lmonary disease) (CMS/HCC V24, CMS/[facility] V28) DX:COPD (chronic o bstructive pulmonary disease) (HCC) Diabetes mellitus (CMS/[facility] V 24, [facility] V28) DX:Diabetes mellitus (HCC) Hypertension DX:Hypertension Family [...] age to complete this topic Care Teams Top Inventory Control Executive Relationship Specialty Start Date End Date Denis Diehl MD [address] [place] [address] Dr Citlali [place] PCP - General 09/05/22
--- OUTSIDE RECORDS SUMMARY | 2025-01-07 12:21 | XMS_ITS | Clinical Summary ---
Author Organization [facility] Address [address] [place] [address] Care Team Providers Care Project Control Manager Name Role Phone Denis Diehl MD Primary Care Provider [phone] Allergies Active Allergy Reactions Criticality Noted Date [...] age to complete this topic Care Teams Project Control Manager Relationship Specialty Start Date End Date Denis Diehl MD [address] [place] [address] PCP - General Family Medicine 09/05/22
[2025-01-07 14:45] LABS: Microalbum/Creatinine Ratio Ur 51.7 ug/mg cr (<30)
[2025-01-07 14:47] LABS: Anion Gap 16 (12-20); Blood Urea Nitrogen 18 mg/dL (9-16); Calcium 9.9 mg/dL (8.4-10.2); Carbon Dioxide 31 mmol/L (22-29); Chloride 95 mmol/L (96-108); Estimated Glomerular Filt Rate > 60; Glucose Random 133 mg/dL (60-115); Potassium 3.5 mmol/L (3.3-5.1); Sodium 138 mmol/L (135-145)
== END 2025-01-07 10:54 | disposition home or self-care (01) ==
LOC: HO.WFDLDS 10:53
PROVIDERS: Visit Provider Family Medicine
DX: Z00.00 Encounter for general adult medical examination without abnormal findings (principal); I10 Essential (primary) hypertension
CPT/HCPCS: 36415; 80048; 82043; 82570; 99212

== ENCOUNTER 2025-02-03 10:24 | Outpatient (AMB) | payer MEDICARE, SELFPAY ==
--- NOTE | 2025-02-03 10:26 | MHC.OFFVIS ---
Intake Visit Reasons: 1y follow up s/p Carotid US 01/05/25 Intake Note: Patient presents for 1 year follow up . No complaints. Accompanied by: Self / Same As Patient Allergies SADI Inhibitors [SADI INHIBITORS] Allergy (Unknown, Verified 02/03/25 10:27) FACIAL SWELLING lisinopril [LISINOPRIL] Allergy (Unknown, Verified 02/03/25 10:27) FACIAL SWELLING, hives, lip edema oxycodone [From PERCOCET] Allergy (Unknown, Verified 02/03/25 10:27) JOINT STIFFNESS peanut [PEANUTS] Allergy (Unknown, Verified 02/03/25 10:27) SWELLING,THROAT,HIVES HPI HPI 1y follow up s/p Carotid US 01/05/25: Details: Very pleasant 79-year-old gentleman presents for routine carotid surveillance. Of note he had left great toe osteomyelitis this past year and was treated for that transferred from [facility] to [facility] and no intervention was required he was just treated with antibiotics. He subsequently went on to have pneumonia this past April in 2023. 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 Since that time he appears to be doing relatively well. He does have shortness of breath and occasional difficulty carrying out routine tasks including grocery shopping but in general managing fairly well. He now presents for routine surveillance follow-up with noninvasive carotid testing. [facility] Medical History Hypokalemia COVID Benign prostatic hyperplasia with urinary obstruction MISTY on CPAP Bifascicular block Atherosclerotic cardiovascular disease COPD (chronic obstructive pulmonary disease) Carotid stenosis Hypertension Diabetes Hypercholesteremia Surgical History H/O colonoscopy Hx of elbow surgery History of eyelid surgery S/P TURP (status post transurethral resection of prostate) (~2019) Status post carotid surgery Hx of cataract Family History Father CVD (cardiovascular disease) Mother No problems noted. Sister Cancer Sister Cancer Social History Household Members: None Housing: House Do you presently have visiting nurse or other home services: Yes Alcohol intake: current Alcohol intake frequency: a few times a week Comment: pt. is ambulatory, steady on foot. Patient Tobacco Use Status: Former Tobacco user e-Cigarette/Vaping Use: Never Used Second Hand Smoke Exposure: No Substance Use Type: Prescription Drugs Advance Directives Date on File: 04/27/24 service: No Current occupational status: retired Current occupational exposures/hazards: No Cognitive needs: No Hearing needs: No Vision needs: No Review of Systems Const All systems reviewed & are unremarkable except as noted in HPI and below Reports no additional complaints ENT Reports Normal hearing present Card Denies chest pain, Denies chest pain at rest, Denies chest pain with activity and Denies pedal edema Resp Denies cough GI Denies abdominal pain Musc Denies abnormal gait, Denies muscle cramps and Denies radiating pain into limb Skin/Breast Denies skin ulcer and Denies wounds Neuro Reports Normal hearing present and Denies abnormal gait Psych Reports no additional complaints Physical Exam Const General: cooperative, healthy appearing and comfortable Orientation/consciousness: oriented to person, oriented to place and oriented to time HEENT Head: Yes normal to inspection Neck Neck: Yes normal visual inspection Carotids: no bruits Chest Chest palpation & inspection: normal inspection of the chest Resp Effort & Inspection: normal respiratory effort and able to speak in complete sentences Auscultation: clear to auscultation bilaterally, no crackles, no rales, no rhonchi and no wheezes Cardio Rate: regular rate Rhythm: regular rhythm Heart sounds: S1 normal heart sound present and S2 normal heart sound present Bruits: no carotid bruits Peripheral pulses: Peripheral pulses 2+ throughout GI Inspection: Yes normal to inspection Skin Wounds: no wounds Hair: normal Neuro General: oriented to person, oriented to place and oriented to time Cranial nerves: Yes CN's II-XII intact bilaterally and Yes Normal hearing present Cognition (Neuro): normal cognition Motor exam (neuro): 5/5 motor strength present throughout Extrem Other: venous exam: No significant superficial varicosities or spider telangiectasias, minimal edema General: No clubbing, No cyanosis and No edema Psych Appearance: grossly normal Mental Status: mental status grossly normal Speech and movement: Normal speech and movement present Assessment & Plan Assessment & Plan (1) Carotid stenosis, bilateral: Comment: 12/02/2015- left carotid endarterectomy Code(s): I65.23 - Occlusion and stenosis of bilateral carotid arteries Category: Medical Plan: In short patient has asymptomatic carotid disease. We have reviewed signs and symptoms of a stroke. We also discussed risk factor modification inclusive a healthy diet low in cholesterol. The patient will follow up with us with surveillance ultrasound of the carotids 1 year. Should there be any changes or signs or symptoms of a stroke we will be happy to see them back sooner. Thank you for allowing us to participate in this patient's care. If there are any questions or concerns please do not hesitate to contact us. Orders: Orders US carotid duplex BI 1 Year I65.23 - Occlusion and stenosis of bilateral carotid arteries Coding Level of Care Code Est Pt Level 4 (35233) Diagnoses Carotid stenosis, bilateral I65.23
--- OUTSIDE RECORDS SUMMARY | 2025-02-03 11:56 | XMS_ITS | Clinical Summary ---
Author Organization [facility] ity Address [address] [place] [address] Care Team Providers Care Mat Man Name Role Phone Denis Diehl MD Primary Care Provider Surgical History Surgery Date Site/Laterality Comments ANKLE SURGERY PROCEDURE:ANKLE SURGERY Medical History Medical History Date Comments Asthma DX:Asthma COPD (chronic obstructive pu lmonary disease) (CMS/HCC V24, CMS/[facility] V28) DX:COPD (chronic o bstructive pulmonary disease) (HCC) Diabetes mellitus (CMS/[facility] V 24, [facility] V28) DX:Diabetes mellitus (HCC) Hypertension DX:Hypertension Family [...] age to complete this topic Care Teams Mat Man Relationship Specialty Start Date End Date Denis Diehl MD [address] [place] [address] Dr Citlali MA PCP - General 09/05/22
== END 2025-02-03 10:51 | disposition home or self-care (01) ==
LOC: HO.HVS 10:25
PROVIDERS: PCP Family Medicine; Visit Provider Surgery Vascular Surgery
DX: I65.23 Occlusion and stenosis of bilateral carotid arteries (principal)
CPT/HCPCS: 99214

== ENCOUNTER → 2025-02-03 10:24 | Outpatient (BNVA) | payer MEDICARE, SELFPAY | PROVIDERS: PCP Family Medicine; Visit Provider Surgery Vascular Surgery | DX: I65.23 Occlusion and stenosis of bilateral carotid arteries (principal) | CPT/HCPCS: 99212 ==

== ENCOUNTER 2025-02-04 08:57 | Outpatient (AMB) | payer MEDICARE, SELFPAY ==
--- NOTE | 2025-02-04 09:10 | MHC.OFFVIS ---
Vital Signs 02/04/25 09:13 Height 5 ft 8 in Weight 220 lb 0.341 oz BMI 33.5 BP 133/66 Blood Pressure Location Lt brachial Position Sitting Pulse 78 Pulse Source Monitor Intake Visit Reasons: 6 mth f/up Conventions Assistant Required: No Accompanied by: Self / Same As Patient Allergies SADI Inhibitors (SADI INHIBITORS) Allergy (Unknown, Verified 02/03/25 10:27) FACIAL SWELLING lisinopril (LISINOPRIL) Allergy (Unknown, Verified 02/03/25 10:27) FACIAL SWELLING, hives, lip edema oxycodone (From PERCOCET) Allergy (Unknown, Verified 02/03/25 10:27) JOINT STIFFNESS peanut (PEANUTS) Allergy (Unknown, Verified 02/03/25 10:27) SWELLING,THROAT,HIVES Medication List - Last Reconciled 02/04/25 by Hernandez Jennings MD albuterol sulfate 90 mcg/actuation 2 puffs inhalation Q4H PRN amlodipine 10 mg PO DAILY aspirin 81 mg PO DAILY blood sugar diagnostic USE DIRECTED DAILY blood sugar diagnostic ([employer]uch Ultra Test strips) check blood sugar one time daily prn as directed brinzolamide-brimonidine 1-0.2 % (Simbrinza) 1 drp ophthalmic (eye) BID uqbntjvuyn-pwkgcgyo-jpiktdmizu 160-9-4.8 mcg/actuation (Breztri Aerosphere) 2 inhalations inhalation BID chlorthalidone 50 mg PO DAILY Held on 05/23/24. Instructions: hold until outpatient follow up epinephrine (EpiPen) 0.3 mg (0.3 mL) IM Q10M PRN 30 days finasteride 5 mg PO DAILY gabapentin 600 mg (2 x 300 mg) PO BEDTIME 30 days MDD 300mg PO glipizide ER 2.5 mg PO DAILY 90 days hydralazine 50 mg PO QID 90 days latanoprost 0.005% 1 drp ophthalmic (eye) BEDTIME metformin 1,000 mg PO BID 90 days rosuvastatin 10 mg PO BEDTIME tamsulosin 0.4 mg PO BID HPI Comments Details: Taqueria returns for follow-up regarding coronary disease. He has multiple cardiovascular risk factors including history of smoking, hypertension, diabetes, dyslipidemia and established coronary as well as peripheral vascular disease. He is clinically just about the same as before. No new cardiac symptoms like angina or anything else of concern. [facility] Medical History Hypokalemia COVID Benign prostatic hyperplasia with urinary obstruction MISTY on CPAP Bifascicular block Atherosclerotic cardiovascular disease COPD (chronic obstructive pulmonary disease) Carotid stenosis Hypertension Diabetes Hypercholesteremia Surgical History (Reviewed 02/04/25 @ 09:15 by Becky Lagunas [facility]) H/O colonoscopy Hx of elbow surgery History of eyelid surgery S/P TURP (status post transurethral resection of prostate) (~2019) Status post carotid surgery Hx of cataract Family History Father CVD (cardiovascular disease) Mother No problems noted. Sister Cancer Sister Cancer Social History (Reviewed 02/04/25 @ 09:15 by Becky Lagunas [facility]) Household Members: None Housing: House Do you presently have visiting nurse or other home services: Yes Alcohol intake: current Alcohol intake frequency: a few times a week Comment: pt. is ambulatory, steady on foot. Patient Tobacco Use Status: Former Tobacco user e-Cigarette/Vaping Use: Never Used Second Hand Smoke Exposure: No Substance Use Type: Prescription Drugs Advance Directives Date on File: 04/27/24 service: No Current occupational status: retired Current occupational exposures/hazards: No Cognitive needs: No Hearing needs: No Vision needs: No Review of Systems Const Denies chills, Denies fatigue, Denies fever(s), Denies frequent falls, Denies weakness, Denies weight gain and Denies weight loss ENT Denies dizziness Card Denies chest pain, Denies leg edema, Denies lightheadedness, Denies palpitations, Denies dyspnea and Denies dyspnea on exertion Resp Denies cough, Denies dyspnea and Denies dyspnea on exertion GI Denies hematochezia Musc Denies abnormal gait, Denies muscle weakness, Denies numbness, Denies radiating pain into limb and Denies tingling Neuro Denies abnormal gait, Denies dizziness, Denies frequent falls, Denies numbness, Denies tingling and Denies weakness Endo Denies fatigue and Denies palpitations Physical Exam Vital Signs: Last Vital Signs Pulse 78 02/04/25 09:13 BP 133/66 06/18/25 09:13 BMI result Body Mass Index 33.5 Const General: comfortable and no acute distress Orientation/consciousness: patient oriented x3 HEENT Other: Unremarkable Head: Yes normal to inspection Neck Neck: Yes normal visual inspection Chest Chest palpation & inspection: normal inspection of the chest Resp Other: Few scattered crackles Cardio Palpation: normal PMI Heart sounds: S1 normal heart sound present, S2 normal heart sound present, no gallops, no murmurs and no rubs GI Palpation (GI): Soft to palpation Back/Spine/Pelvis Other: unremarkable Skin General skin exam: no rashes or lesions noted Neuro General: patient oriented x3 Extrem General: Yes normal to inspection Psych Mental Status: mental status grossly normal Office Procedures EKG Details: EKG with underlying sinus rhythm at 78/Min; left anterior fascicular block and right bundle-branch block-bifascicular block. Similar to prior. [id number], Complete Assessment & Plan Assessment & Plan (1) Atherosclerotic cardiovascular disease: Code(s): I25.10 - Atherosclerotic heart disease of [place] coronary artery without angina pectoris Category: Medical Plan: Cardiac catheterization in the past had revealed minimal irregularities in the left main, LAD, circumflex and moderate nonobstructive disease in the right coronary artery. Most recently, perfusion imaging from 01/2024 unremarkable. Continue aspirin and statins. Last LDL 51 mg/dL. Could not take beta-blockers due to possible allergic reaction in the past as well as epinephrine use for allergies (used once in the past). (2) Bifascicular block: Code(s): I45.2 - Bifascicular block Category: Medical Plan: Stable. (3) Atrial arrhythmia: Code(s): I49.8 - Other specified cardiac arrhythmias Category: Medical Plan: In the last Holter, he had frequent supraventricular ectopy with a burden of almost 10%. Increased risk of atrial fibrillation the future. (4) Essential hypertension: Code(s): I10 - Essential (primary) hypertension Category: Medical Plan: Stable. No changes. Of note, history of allergy to SADI inhibitors in the past due to swelling of lips. Also suspected beta-caitlyn allergy, but symptoms are not very clear. (5) Type 2 diabetes mellitus with unspecified complications: Code(s): E11.8 - Type 2 diabetes mellitus with unspecified complications Category: Medical Plan: On Metformin, glipizide. Last HbA1c 6.9%. (6) Carotid stenosis, bilateral: Comment: 12/02/2015- left carotid endarterectomy Code(s): I65.23 - Occlusion and stenosis of bilateral carotid arteries Category: Medical Plan: Status post left carotid endarterectomy. Last carotid Doppler shows no significant disease. (7) MISTY on CPAP: Code(s): G47.33 - Obstructive sleep apnea (adult) (pediatric); Z99.89 - Dependence on other enabling machines and devices Category: Medical Plan: Continue CPAP. Plan Discussion Notes During the visit, I reviewed the stable nature of the patient's abnormal EKG and absence of concerning symptoms such as chest pain or pressure. The patient remains stable on current medication. Regular follow-up in six months was advised with continuation of what's tolerable. No additional interventions were necessary, and the implications of his mobility limitations were acknowledged. Patient agreed with the plan. Patient was informed and verbally consented to the use of an ambient scribe for clinic note documentation during this visit. Patient Instructions: - Continue current medications as prescribed. - Monitor any changes in breathing or chest symptoms. - Maintain scheduled follow-up appointments every six months. - Find activities that are manageable given current joint pains. - Seek medical advice if new symptoms arise or existing symptoms worsen. Coding Level of Care Code Est Pt Level 4 (53649) Complex EM visit Add On G2211 Diagnoses Atherosclerotic cardiovascular disease I25.10 Bifascicular block I45.2 Atrial arrhythmia I49.8 Essential hypertension I10 Type 2 diabetes mellitus with unspecified complications E11.8 Carotid stenosis, bilateral I65.23 MISTY on CPAP G47.33; Z99.89 CPT Codes EKG - CPT: 88073-[id number], Complete ([id number])
[2025-02-04 09:13] VITALS: BP 133/66; PULSE 78; BMI 33.5
--- OUTSIDE RECORDS SUMMARY | 2025-02-04 09:36 | XMS_ITS | Clinical Summary ---
Author Organization [facility] ity Address [address] [place] [address] Care Team Providers Care Police Officer Crime Prevention Name Role Phone Denis Diehl MD Primary Care Provider Surgical History Surgery Date Site/Laterality Comments ANKLE SURGERY PROCEDURE:ANKLE SURGERY Medical History Medical History Date Comments Asthma DX:Asthma COPD (chronic obstructive pu lmonary disease) (CMS/HCC V24, CMS/[facility] V28) DX:COPD (chronic o bstructive pulmonary disease) (HCC) Diabetes mellitus (CMS/[facility] V 24, [facility] V28) DX:Diabetes mellitus (HCC) Hypertension [...] age to complete this topic Care Teams Police Officer Crime Prevention Relationship Specialty Start Date End Date Denis Diehl MD [address] [place] [address] Dr Citlali MA PCP - General 09/05/22
== END 2025-02-04 09:38 | disposition home or self-care (01) ==
LOC: HO.HCS 08:58
PROVIDERS: PCP Family Medicine; Visit Provider Internal Medicine
DX: I25.10 Atherosclerotic heart disease of native coronary artery without angina pectoris (principal); I45.2 Bifascicular block; I49.8 Other specified cardiac arrhythmias; I10 Essential (primary) hypertension; E11.8 Type 2 diabetes mellitus with unspecified complications; I65.23 Occlusion and stenosis of bilateral carotid arteries; G47.33 Obstructive sleep apnea (adult) (pediatric); Z99.89 Dependence on other enabling machines and devices
CPT/HCPCS: 93010; 99214; G2211

== ENCOUNTER → 2025-02-04 08:57 | Outpatient (BNVA) | payer MEDICARE, SELFPAY | PROVIDERS: PCP Family Medicine; Visit Provider Internal Medicine | DX: I25.10 Atherosclerotic heart disease of native coronary artery without angina pectoris (principal); I45.2 Bifascicular block; I49.8 Other specified cardiac arrhythmias; I10 Essential (primary) hypertension; I65.23 Occlusion and stenosis of bilateral carotid arteries; E11.8 Type 2 diabetes mellitus with unspecified complications; G47.33 Obstructive sleep apnea (adult) (pediatric); R94.31 Abnormal electrocardiogram [ECG] [EKG]; Z99.89 Dependence on other enabling machines and devices | CPT/HCPCS: 93005; 99212 ==

== ENCOUNTER 2025-02-07 17:04 | Emergency (ER) | payer MEDICARE, SELFPAY ==
--- NOTE | ~2025-02-07 | CT_ITS ---
CLINICAL HISTORY: abdominal pain CT abdomen and pelvis with contrast Comparison: None Findings: The visualized portions of the lungs are normal in appearance. The liver is normal in size without suspicious focal hepatic lesions. No intrahepatic or extrahepatic ductal dilatation is seen. The hepatic and portal veins are patent. No calcified gallstones in the gallbladder. Gallbladder is contracted. Pancreas, spleen are normal in appearance. Small 1.5 cm right adrenal nodule. No suspicious focal lesion of the kidneys. No hydronephrosis or calculi. The abdominal aorta demonstrates no evidence of aneurysmal dilatation or dissection. Atherosclerosis calcification of the aorta. Colonic diverticulosis. Bowel wall thickening of the sigmoid colon with surrounding fat stranding. No evidence of bowel obstruction. Appendix is normal. Prostatomegaly. Mild circumferential wall thickening of the bladder. No intraperitoneal free air or fluid is visualized. No pathologic lymphadenopathy is seen. Degenerative changes of the lumbar spine. IMPRESSION: Acute uncomplicated diverticulitis of the sigmoid colon. Correlation with colonoscopy findings as indicated. Small right adrenal nodule. Additional findings as above. This document has been electronically signed by: Niecy Alberts MD on 02/07/2025 20:05:48
[2025-02-07 17:19] VITALS: BP 154/90; PULSE 104; O2SAT 96
[2025-02-07 17:26] VITALS: BP 154/90; BP 173/69; PULSE 104; PULSE 98; RESP 20; O2SAT 93; O2SAT 96; BMI 32.4
[2025-02-07 17:45] LABS: MANUAL DIFF FLAG NO
[2025-02-07 17:46] LABS: Basophils Absolute Auto 0.1 X10*3/uL (0.0-0.2); Basophils Percent Auto 0.4 % (0-2); Eosinophils Absolute Auto 0.2 X10*3/uL (0.0-0.4); Eosinophils Percent Auto 1.5 % (0-4); Hematocrit 41.3 % (42.0-52.0); Hemoglobin 14.7 g/dl (14.0-18.0); Imm Gran Abs Auto 0.09 X10*3/uL (0.00-0.03); Imm Gran Pct Auto 0.6 % (0.0-0.4); Lymphocytes Absolute Auto 1.8 X10*3/uL (1.2-4.9); Lymphocytes Percent Auto 11.3 % (20-40); Mean Corpuscular HGB Conc 35.6 g/dl (31.0-36.0); Mean Corpuscular Hemoglobin 30.2 pg (27.0-33.0); Mean Platelet Volume 8.7 fL (9.4-12.4); Monocytes Absolute Auto 1.2 X10*3/uL (0.1-1.2); Monocytes Percent Auto 7.7 % (2-11); Neutrophils Absolute Auto 12.7 x10*3/uL (2.0-8.3); Neutrophils Percent Auto 78.5 % (45-73); Platelet Count 244 X10*3/uL (160-400); Red Blood Count 4.86 X10*6/uL (4.60-5.80); Red Cell Distribution Width 14.1 % (11.0-16.0); White Blood Count 16.2 X10*3/uL (4.8-10.8)
[2025-02-07 17:59] LABS: Alanine Aminotransferase 29 U/L (0-40); Albumin Level 4.4 g/dL (3.5-5.0); Alkaline Phosphatase 48 U/L (39-117); Anion Gap 16 (12-20); Aspartate Amino Transferase 28 U/L (5-37); Bilirubin Direct 0.2 mg/dL (0.0-0.5); Bilirubin Total 0.5 mg/dL (0.0-1.0); Blood Urea Nitrogen 14 mg/dL (9-16); Calcium 9.9 mg/dL (8.4-10.2); Carbon Dioxide 29 mmol/L (22-29); Chloride 94 mmol/L (96-108); Creatinine Clr Calc Pharmacy 76.2; Estimated Glomerular Filt Rate > 60; Glucose Random 189 mg/dL (60-115); Lipase 60 U/L (8-78); Magnesium 1.8 mg/dL (1.6-2.6); Potassium 3.2 mmol/L (3.3-5.1); Sodium 136 mmol/L (135-145)
[2025-02-07 18:00] VITALS: BP 169/59; PULSE 93; RESP 20; O2SAT 92
--- NOTE | 2025-02-07 18:17 | ED_ITS ---
HPI - General Adult General Chief complaint: Abdominal Pain Stated complaint: abd pain x2 days Time Seen by Provider: 02/07/25 18:17 Source: patient and EMS Mode of arrival: EMS Limitations: no limitations History of Present Illness ED Provider: Rita Liao PA-C HPI narrative: Patient is a 79 year old assigned male at with a history of BPH, PAD, DM, HTN, and COPD presenting to the emergency department today with abdominal pain. Patient states that over the last day he has had diffuse abdominal pain that he thought was constipation so he took OTC medication but it did not help. Patient denies any dizziness, lightheadedness, nausea, vomiting, fever, chills, blurry vision, double vision, loss of vision, chest pain, difficulty breathing, shortness of breath, back pain, night sweats, pain with urination, increased urinary frequency, increased urinary urgency, blood in his urine or stool, syncope or a near syncopal episode, recent trauma or falls, bowel incontinence, bladder incontinence, or any other complaints at this time. Onset (ago): day(s) (1) Relieving factors: none Exacerbating factors: none Associated symptoms: denies other symptoms Related Data Home Medications ?Medication ?Instructions ?Recorded ?Confirmed tamsulosin 0.4 mg capsule 0.4 mg PO BID 07/01/2002/04 aspirin 81 mg tablet,delayed 81 mg PO DAILY 08/03/20 0 02/04/25 release finasteride 5 mg tablet 5 mg PO DAILY 02/04/2402/04 albuterol sulfate 90 mcg/actuation 2 puff inhalation Q 4H PRN wheezing 04/28/24 02/04/25 aerosol inhaler brinzolamide 1 %-brimonidine 0.2 % 1 drp ophthalmic (e ye) BID 04/28/24 02/04/25 eye drops,suspension (Simbrinza) budesonide 160 mcg-glycopyr 9 2 inh inhalation BID 05/1302/04/25 mcg-formot 4.8 mcg/actuation HFA inhaler (Breztri Aerosphere) chlorthalidone 50 mg tablet 50 mg PO DAILY 04/28/24 Held on 05/23/24. Instructions: hold until outpatient follow up latanoprost 0.005 % eye drops 1 drp ophthalmic (eye) B EDTIME 04/28/24 02/04/25 rosuvastatin 10 mg tablet 10 mg PO BEDTIME 06/10/24 Previous Rx's ?Medication ?Instructions ?Recorded blood sugar diagnostic #50 ea 07/26/20 blood sugar diagnostic (OneTouch #25 ea 05/20/24 Ultra Test strips) epinephrine 0.3 mg/0.3 mL 0.3 mg (0.3 mL) IM Q10M PRN 07/07/24 injection, auto-injector (EpiPen) anaphylaxis 30 days #1 ea amlodipine 10 mg tablet 10 mg PO DAILY #30 tabs 07/21 03/12 glipizide 2.5 mg tablet, extended 2.5 mg PO DAILY 90 d ays #90 tabs 01/07/25 release 24 hr hydralazine 50 mg tablet 50 mg PO QID 90 days #360 ta bs 01/07/25 metformin 1,000 mg tablet 1,000 mg PO BID 90 days #180 tabs 01/27/25 gabapentin 300 mg capsule 600 mg (2 x 300 mg) PO BEDTI ME 01/30/25 numbness and tingling in feet 30 days #60 caps amoxicillin 875 mg-potassium 1 tab PO BID 7 days #14 t abs 02/07/25 clavulanate 125 mg tablet Allergies Allergy/AdvReac Type Severity Reaction Status Date / Time SADI Inhibitors (SADI Allergy Unknown FACIAL Verified 02/07/25 17:28 INHIBITORS) SWELLING lisinopril (LISINOPRIL) Allergy Unknown FACIAL Verified 02/07/25 17:28 SWELLING, hives, lip edema oxycodone (From PERCOCET) Allergy Unknown JOINT Verified 02/07/25 17:28 STIFFNESS peanut (PEANUTS) Allergy Unknown SWELLING,TH Verified 02/07/25 17:28 ROAT,HIVES Review of Systems 2 Constitutional: Constitutional: Reports no additional constitutional complaints, Denies chills, Denies fever(s) and Denies night sweats Eyes: Eyes: Reports no additional eye complaints, Denies blurry vision, Denies change in vision, Denies diplopia, Denies eye discharge, Denies loss of vision and Denies eye pain ENT: Denies dizziness Cardiovascular: Cardiovascular: Reports no additional cardiovascular complaints, Denies chest pain, Denies lightheadedness, Denies Loss of Consciousness and Denies dyspnea Respiratory: Respiratory: Reports no additional respiratory complaints and Denies dyspnea Gastrointestinal: Gastrointestinal: Reports no additional gastrointestinal complaints, Reports abdominal pain, Denies melena, Denies hematochezia, Denies change in bowel habits and Denies change in stool character Genitourinary: Genitourinary: Reports no additional male genitourinary complaints, Denies hematuria, Denies oliguria, Denies difficulty urinating, Denies dysuria, Denies urinary frequency, Denies urinary hesitancy, Denies urinary incontinence and Denies urinary urgency Musculoskeletal: Musculoskeletal: Reports no additional musculoskeletal complaints, Denies numbness and Denies tingling Neurologic: Denies dizziness, Denies loss of vision, Denies numbness and Denies tingling Psychiatric: Psychiatric: Reports no additional psychiatric complaints Endocrine: Endocrine: Reports no additional endocrine complaints Hematologic/Lymphatic: Hematologic/Lymphatic: Reports no additional hematologic/lymphatic complaints Allergic/Immunologic: Allergic/Immunologic: Reports no additional allergic/immunologic complaints PMFSH Past Medical History Attestation statement: The following information was validated with the patient. Source: old records reviewed and nursing notes reviewed Medical History Hypokalemia COVID Benign prostatic hyperplasia with urinary obstruction MISTY on CPAP Bifascicular block Atherosclerotic cardiovascular disease COPD (chronic obstructive pulmonary disease) Carotid stenosis Hypertension Diabetes Hypercholesteremia Surgical History H/O colonoscopy Hx of elbow surgery History of eyelid surgery S/P TURP (status post transurethral resection of prostate) (~2019) Status post carotid surgery Hx of cataract Family History Family History Father CVD (cardiovascular disease) Mother No problems noted. Sister Cancer Sister Cancer Social History Social History Household Members: None Housing: House Do you presently have visiting nurse or other home services: Yes Alcohol intake: current Alcohol intake frequency: a few times a week Comment: pt. is ambulatory, steady on foot. Patient Tobacco Use Status: Former Tobacco user e-Cigarette/Vaping Use: Never Used Second Hand Smoke Exposure: No Substance Use Type: Prescription Drugs Advance Directives Date on File: 04/27/24 service: No Current occupational status: retired Current occupational exposures/hazards: No Cognitive needs: No Hearing needs: No Vision needs: No Physical Exam ED Vital Signs: Vital Signs - 24 hr 02/07/25 17:26 02/07/25 18:00 02/07/25 21:12 Temperature 98.6 F Pulse Rate 98 93 93 Respiratory Rate 20 20 18 Blood Pressure 173/69 H 169/59 H 170/83 H Pulse Oximetry 93 92 95 Oxygen Delivery Method Room Air Room Air Room Air BMI result Body Mass Index 32.4 Const General: cooperative, no acute distress, alert and awake Nutritional Appearance: well nourished Orientation/consciousness: patient oriented x3 HENMT Head: Yes normal to inspection and Yes atraumatic Ears: hearing grossly normal bilaterally and external ears normal General nose exam: Normal external nose present, no nasal discharge noted and no epistaxis Face and sinus: Yes normal facial exam, No abrasion and No laceration Mouth: Normal oral and palatal mucosa present, no drooling and no muffled voice Eyes General: appearance normal, both eyes and all related structures Periorbital: periorbital findings normal Eyelids: Yes eyelids normal Conjunctivae: conjunctivae normal Pupils: Equal, round and reactive pupils present EOM: EOMs intact bilaterally Neck Neck: Yes normal visual inspection, Yes full ROM and Yes no lymphadenopathy Resp Effort & Inspection: normal respiratory effort and able to speak in complete sentences GI Inspection: Yes normal to inspection Palpation (GI): Soft to palpation, not firm, Tenderness to palpation present (GI) (diffuse) and no guarding Neuro General: patient oriented x3, moves all extremities and CN's II-XI intact bilaterally Cranial nerves: Yes Equal, round and reactive pupils present Cognition (Neuro): normal cognition Extrem General: Yes normal to inspection, Yes full ROM and Yes capillary refill normal Psych Appearance: grossly normal Mental Status: mental status grossly normal Affect: normal affect Attitude: cooperative Thought process: Normal thought process present Thought content: Normal thought content present Insight: Good insight present (Psych) Medications Administered Discontinued Medications Generic Name Dose Route Start Last Admin Trade Name Freq PRN Reason Stop Dose Admin Amoxicillin/Clavulanate Potassium 875 mg 02/07/25 20:19 02/07/25 20:55 Amoxicillin/Potassium Clav 875 Mg Tablet PO 02/07/25 20:20 875 mg ONCE ONE Administration Iohexol 100 ml 02/07/25 19:21 02/07/25 19:29 Iohexol 350 Mg/Ml 100 Ml Infus..Btl IV 02/07/25 19:22 85 ml ONCE ONE Administration Morphine Sulfate 4 mg 02/07/25 20:20 02/07/25 21:00 Morphine Sulfate 4 Mg/Ml Cartridge IVPUSH 02/07/25 20:21 Not Given ONCE ONE Protocol Ondansetron HCl 4 mg 02/07/25 20:20 02/07/25 21:01 Ondansetron Hcl 4 Mg/2 Ml Vial IVPUSH 02/07/25 20:21 Not Given ONCE ONE Oxycodone HCl 10 mg 02/07/25 20:58 02/07/25 21:06 Oxycodone Hcl Immed Release 5 Mg Tablet PO 02/07/25 20:59 10 mg ONCE ONE Administration Medical Decision Making Medical Decision Making [facility] Narrative: Patient is a 79 year old assigned male at with a history of BPH, PAD, DM, HTN, and COPD presenting to the emergency department today with abdominal pain. Patient's physical exam was as noted in the physical exam portion of this note. Patient's blood work showed an elevated WBC count of 16.2 however - this appears chronic for the patient. Potassium of 3.2. Patient's urine showed no acute process. Patient's CT abd/pelvis showed evidence of diverticulitis. I explained my physical exam findings as well as all test results to the patient. I answered all questions asked by the patient. Patient declined any IV pain medication. I had an extensive conversation with the patient on outpatient vs. inpatient treatment and together, through shared decision making, we determined we would trial outpatient management of the patient's diverticulitis with strict return precautions. I stressed the importance of the patient taking his medication as directed (either prescribed or as the over the counter packaging recommends). I stressed the importance of the patient following up with his primary care provider and a GI specialist. I stressed the importance of the patient returning to the emergency department immediately if his symptoms were to worsen or if he were to develop any dizziness, shortness of breath, difficulty breathing, chest pain, blurry vision, loss of vision, nausea, vomiting, abdominal pain, fever, chills, back pain, or any other complaints. Patient verbalized agreement and understanding with this treatment plan and discharge. Differential Diagnosis Differential Diagnoses: The differential diagnosis associated with the presentation includes Diverticulitis Abdominal pain Appendicitis Gastroenteritis Constipation Admission/Observation Consideration of admission/observation: Escalation of care including admission/observation considered Patient would have been admitted to the hospital had his work up had any findings where hospital admission was appropriate and his clinical presentation warranted hospital admission. Lab Data [facility] Lab Attestation statement: I reviewed the patient's lab results. My interpretation of these results are in the [facility] Rationale portion of this note. 02/07/25 17:41 02/07/25 17:41 Labs: Lab Results 02/07/25 02/07/25 Range/Units 17:41 18:40 WBC 16.2 H (4.8-10.8) X10*3/uL RBC 4.86 (4.60-5.80) X10*6/uL Hgb 14.7 (14.0-18.0) g/dl Hct 41.3 L (42.0-52.0) % MCV 85.0 (80.0-98.0) fL MCH 30.2 (27.0-33.0) pg MCHC 35.6 (31.0-36.0) g/dl RDW 14.1 (11.0-16.0) % Plt Count 244 D (160-400) X10*3/uL MPV 8.7 L (9.4-12.4) fL Immature Gran % (Auto) 0.6 H (0.0-0.4) % Neut % (Auto) 78.5 H (45-73) % Lymph % (Auto) 11.3 L (20-40) % [place] % (Auto) 7.7 (2-11) % Eos % (Auto) 1.5 (0-4) % Baso % (Auto) 0.4 (0-2) % Lymph # (Auto) 1.8 (1.2-4.9) X10*3/uL [place] # (Auto) 1.2 (0.1-1.2) X10*3/uL Eos # (Auto) 0.2 (0.0-0.4) X10*3/uL Baso # (Auto) 0.1 (0.0-0.2) X10*3/uL Abs Immat Gran (auto) 0.09 H (0.00-0.03) X10*3/uL Absolute Neuts (auto) 12.7 H (2.0-8.3) x10*3/uL Absolute Nucleated RBC 0.000 (0.0-0.012) X10*3/uL Nucleated RBC % (auto) 0.0 (0.0-0.2) /100WBC Sodium 136 (135-145) mmol/L Potassium 3.2 L (3.3-5.1) mmol/L Chloride 94 L (96-108) mmol/L Carbon Dioxide 29 (22-29) mmol/L Anion Gap 16 (12-20) BUN 14 (9-16) mg/dL Creatinine 0.90 (0.5-1.4) mg/dL Estim Creat Clear Calc 76.2 Estimated GFR > 60 Random Glucose 189 H (60-115) mg/dL Calcium 9.9 (8.4-10.2) mg/dL Magnesium 1.8 (1.6-2.6) mg/dL Total Bilirubin 0.5 (0.0-1.0) mg/dL Direct Bilirubin 0.2 (0.0-0.5) mg/dL AST 28 (5-37) U/L ALT 29 (0-40) U/L Alkaline Phosphatase 48 (39-117) U/L Total Protein 7.0 (6.5-8.0) g/dL Albumin 4.4 (3.5-5.0) g/dL Lipase 60 (8-78) U/L Urine Color Yellow Urine Appearance Clear Urine pH 7.0 (5.0-9.0) Ur Specific [place] 1.015 (1.005-1.025) Urine Protein Trace (Neg-Trace) mg/dL Urine Glucose (UA) Negative (Negative) mg/dL Urine Ketones Negative (Negative) mg/dL Urine Blood Negative (Negative) Urine Nitrite Negative (Negative) Ur Leukocyte Esterase Negative (Negative) Independent Interpretation I performed an independent interpretation of an: CT Scan Interpretation: My interpretation is in agreement with the radiologist's impression of this imaging study. L Report Number: [id number]: Total DLP = 724.00 mGy-cm CLINICAL HISTORY: abdominal pain CT abdomen and pelvis with contrast Comparison: None Findings: The visualized portions of the lungs are normal in appearance. The liver is normal in size without suspicious focal hepatic lesions. No intrahepatic or extrahepatic ductal dilatation is seen. The hepatic and portal veins are patent. No calcified gallstones in the gallbladder. Gallbladder is contracted. Pancreas, spleen are normal in appearance. Small 1.5 cm right adrenal nodule. No suspicious focal lesion of the kidneys. No hydronephrosis or calculi. The abdominal aorta demonstrates no evidence of aneurysmal dilatation or dissection. Atherosclerosis calcification of the aorta. Colonic diverticulosis. Bowel wall thickening of the sigmoid colon with surrounding fat stranding. No evidence of bowel obstruction. Appendix is normal. Prostatomegaly. Mild circumferential wall thickening of the bladder. No intraperitoneal free air or fluid is visualized. No pathologic lymphadenopathy is seen. Degenerative changes of the lumbar spine. IMPRESSION: Acute uncomplicated diverticulitis of the sigmoid colon. Correlation with colonoscopy findings as indicated. Small right adrenal nodule. Additional findings as above. This document has been electronically signed by: Niecy Alberts MD on 02/07/2025 20:05:48 Dictated By: Niecy Alberts MD Signed By: Electronically signed by Niecy Alberts MD 02/07/252005 Radiology Impression Discussion of test interpretation with radiology: I have reviewed the radiologist's reading. Prescription Management I considered prescription management with: Antibiotic (patient prescribed an antibiotic for diverticulitis) Discharge Plan Discharge Clinical Impression: Diverticulitis, Acute hypokalemia Patient Disposition: Home, Self-Care Instructions: Diverticulitis (DC), Hypokalemia (ED), Potassium Content of Foods List (ED) Additional Instructions: Take your antibiotic as prescribed. Follow up with a GI specialist. Follow up with your primary care provider. Return to the emergency department immediately if your symptoms worsen or if you develop any numbness, tingling, dizziness, shortness of breath, difficulty breathing, chest pain, blurry vision, loss of vision, nausea, vomiting, abdominal pain, fever, chills, back pain, or any other complaints. Please see the information below about our Patient Portal. If you are not yet enrolled in the [facility] Patient Portal, you will receive an enrollment email invitation following your visit to any [facility] care setting. You may also self-enroll in the Patient Portal by visiting our website: [email or web address] The following information is required to access the Patient Portal: - Your [facility] Medical Record Number - Your personal home email address (must match what is in your electronic medical record, Registration staff can assist with this) - Name - Date of Capabilities of the Patient Portal: - Message some providers - View upcoming appointments - Access your health summary, medical history, and visit history - View current conditions and allergies - View procedure and lab results - View your medications, including guidelines, side effects, and precautions - Complete pre-appointment questionnaires requested by your provider - Ready summary reports of your office visits and procedures To access the Patient Portal Mobile [employer], follow these directions: - Search [employer] in the [employer] Store or [employer] Store - Download the [facility] - Search for [facility] - Enter your login/password Prescriptions: New amoxicillin-pot clavulanate 875-125 mg tablet 1 tab PO BID 7 Days Qty: 14 0RF No Action (DME) blood sugar diagnostic Strip See Rx Instructions .ROUTE .MEDSUPPLY Qty: 50 2RF Rx Instructions: USE DIRECTED DAILY (DME) OneTouch Ultra Test Strip See Rx Instructions .Route Qty: 25 2RF Rx Instructions: check blood sugar one time daily prn as directed amlodipine 10 mg tablet 10 mg PO DAILY Qty: 30 6RF metformin 1,000 mg tablet 1,000 mg PO BID 90 Days Qty: 180 3RF gabapentin 300 mg capsule 600 mg PO BEDTIME MDD 300mg PO 30 Days Qty: 60 0RF Rx Instructions: May take (2)300mg PO at bedtime for numbness and tingling of bilateral feet and hands at night time. latanoprost 0.005 % drops 1 drp ophthalmic (eye) BEDTIME Rx Instructions: BOTH EYES albuterol sulfate 90 mcg/actuation HFA aerosol inhaler 2 puff inhalation Q4H PRN (Reason: wheezing) Simbrinza 1-0.2 % drops,suspension 1 drp ophthalmic (eye) BID Rx Instructions: BOTH EYES Breztri Aerosphere 160-9-4.8 mcg/actuation HFA aerosol inhaler 2 inh INHALATION BID chlorthalidone 50 mg tablet 50 mg PO DAILY tamsulosin 0.4 mg capsule 0.4 mg PO BID aspirin 81 mg tablet,delayed release (DR/EC) 81 mg PO DAILY finasteride 5 mg tablet 5 mg PO DAILY epinephrine [EpiPen] 0.3 mg/0.3 mL auto-injector 0.3 mg IM Q10M PRN (Reason: anaphylaxis) 30 Days Qty: 1 2RF Rx Instructions: for 2 doses rosuvastatin 10 mg tablet 10 mg PO BEDTIME hydralazine 50 mg tablet 50 mg PO QID 90 Days Qty: 360 3RF glipizide 2.5 mg tablet extended release 24hr 2.5 mg PO DAILY 90 Days Qty: 90 3RF Referrals: [facility] Gastroenterology Services [Provider Group, Gastroenterology] Referral Note: Call to establish and follow up with a GI specialist. [facility] Family Medicine [Provider Group, Family Practice] Referral Note: Call to establish and follow up with a primary care provider. If you already have a primary care provider, please follow up with them. Interventions: ED Discharge Assessment Last Done: 02/07/25 21:12 Discharge Date/Time: 02/07/25 21:13 Print Language: Welsh
[2025-02-07 18:47] LABS: Appearance Urine Clear; Color Urine Yellow; Glucose Urine UA Negative (Negative); Leukocyte Esterase Urine Negative (Negative); Nitrite Urine Negative (Negative); Specific Gravity - Urine 1.015 (1.005-1.025); Urine Blood Negative (Negative); Urine Ketones Negative (Negative); Urine Protein Trace mg/dL (Neg-Trace)
[2025-02-07] MEDS: iohexoL 350 MG/ML 100 ML INFUS..BTL IV (19:29)
--- NOTE | 2025-02-07 19:32 | PC.NURSE ---
pt reports abd pain 5/10, tolerable at this time. denies needing intervention. resting comfortably. call [facility] within reach.
[2025-02-07] MEDS: Amoxicillin/Potassium Clav 875 MG TABLET PO (20:55)
[2025-02-07] MEDS: oxyCODONE HCl Immed Release 5 MG TABLET 10 MG PO (21:06)
[2025-02-07 21:12] VITALS: BP 170/83; PULSE 93; RESP 18; TEMP 37; O2SAT 95
== END 2025-02-07 21:13 | disposition home or self-care (01) ==
PROVIDERS: Physician Assistant Medical; Emergency Provider Emergency Medicine Emergency Medical Services
DX: K57.32 Diverticulitis of large intestine without perforation or abscess without bleeding (principal); E87.6 Hypokalemia; E11.9 Type 2 diabetes mellitus without complications; I10 Essential (primary) hypertension; E78.00 Pure hypercholesterolemia, unspecified; J44.9 Chronic obstructive pulmonary disease, unspecified; Z87.891 Personal history of nicotine dependence; Z79.84 Long term (current) use of oral hypoglycemic drugs; Z79.899 Other long term (current) drug therapy; Z79.02 Long term (current) use of antithrombotics/antiplatelets; Z79.82 Long term (current) use of aspirin
CPT/HCPCS: 36415; 74177; 80048; 80076; 81003; 83690; 83735; 85025; 99284; 99285; J2270; J2405; Q9967

== ENCOUNTER → 2025-02-07 18:28 | Outpatient (BNV) | payer MEDICARE, SELFPAY | PROVIDERS: Emergency Provider Emergency Medicine Emergency Medical Services; Visit Provider Nuclear Medicine | DX: K57.32 Diverticulitis of large intestine without perforation or abscess without bleeding (principal); E27.9 Disorder of adrenal gland, unspecified | CPT/HCPCS: 74177 ==

== ENCOUNTER 2025-03-05 10:20 | Outpatient (AMB) | payer MEDICARE, SELFPAY ==
--- OUTSIDE RECORDS SUMMARY | 2025-03-04 23:59 | XMS_ITS | Continuity of Care Document ---
Author Organization [facility] Address [address] [place] [address]- Care Team Providers Care Laboratory Supervisor Name Role Phone Shanita SANTIAGO, Denis Hui Primary Care Physician [place] [facility] [place]): [place] - 03/04/25 [facility] [address] [place] [id number]- Attending Physician: Caprice Dunn MD Admitting Physician: Caprice Dunn MD Referring Physician: Denis Diehl MD Encounter Type: Pre-OutPatient One Time Allergies, Adverse Reactions, Alerts Substance Criticality Severity Reaction Reaction Severity Status Nuts anaph. throat swelling face swelling Active Percocet 5/325 joint darío Act mauricio lisinopril Unable to assess criticality Persistent Severe Lip Swelling facial swelling Active Other Food Allergy anaph. peanuts, legumes throat swelling face swelling Active Immunizations Given and Recorded Vaccine Date Status Refusal Reason pneumococcal 23-valent vaccine 03/16/12 Given Medications Albuterol (Eqv-ProAir HFA) 90 mcg/inh inhalation aerosol 2 puffs, Inhalation, Every 4 hours, PRN NEEDED FOR WHEEZING - USE WITH SPACER, # 8.5 Unknown, 11Refills, Maintenance, 11/21/24 10:45:00 AM EDT, [facility], 16, INHALE 2 PUFFS EVERY 4 HOURS NEEDED FOR WHEEZING - USE WITH SPACER, 173, cm, 04/27/24 7:31:00 EDT, Height, 98.9, kg, 04/25/24 10:49:00 EDT, Dry Weight Start Date: 11/21/24 Status: Ordered Quantity: 8.5 Unit: Unknown Repeat number: 1 amLODIPine 5 mg oral tablet 10 mg, By Mouth, Daily, Refills 0, Maintenance, 04/27/24 3:26:00 PM EDT, Partial fill upon patient request if the prescription is for a schedule II opioid drug. Start Date: 04/27/24 Status: Ordered Repeat number: 1 aspirin 81 mg oral delayed release tablet 81 mg, 1, tablet, By Mouth, Daily, # 90 tablet, Refills 0, Maintenance, 10/26/22 2:29:00 PM EST, Partial fill upon patient request if the prescription is for a schedule II opioid drug. Start Date: 10/26/22 Status: Ordered Quantity: 90.0 Unit: tablet Repeat number: 1 atorvastatin 10 mg oral tablet 1 tablet = 10 mg, By Mouth, Daily, pt unsure of dose, 0 Refills, Maintenance, 04/20/23 8:17:00 PM EDT, Partial fill upon patient request if the prescription is for a schedule II opioid drug. Start Date: 04/20/23 Status: Ordered Repeat number: 1 Breztri Aerosphere inhalation aerosol See Instructions, INHALE TWO PUFFS BY MOUTH TWICE A DAY . RINSE MOUTH AND THROAT AFTER USE, # 10.7 Gm, 4 Refills, Maintenance, 11/12/24 3:57:00 PM EDT, [facility], 30, INHALE TWO PUFFS BY MOUTH TWICE A DAY . RINSE MOUTH AND THROAT AFTER USE, 173, cm, 04/27/24 7:31:00 EDT, Height, 98.9, kg, 04/25/24 10:49:00 EDT, Dry Weight Start Date: 11/12/24 Status: Ordered Quantity: 10.7 Unit: g Repeat number: 1 chlorthalidone 25 mg oral tablet 50 mg, 2, tablet, By Mouth, Daily, Refills 0, Maintenance, 01/23/20 11:04:00 AM EDT Start Date: 01/23/20 Status: Ordered Repeat number: 1 Enoxaparin 0.4 mL = 40 mg, Subcutaneous Injection, Daily, 0 Refills, Maintenance, 04/27/24 3:27:00 PM EDT, Injection, Partial fill upon patient request if the prescription is for a schedule II opioid drug. Start Date: 04/27/24 Status: Ordered Repeat number: 1 hydrALAZINE 25 mg oral tablet 50 mg, By Mouth, Every 8 hours, Refills 0, Maintenance, 04/27/24 3:27:00 PM EDT, Partial fill upon patient request if the prescription is for a schedule II opioid drug. Start Date: 04/27/24 Status: Ordered Repeat number: 1 insulin lispro 100 u/ml subcutaneous injection 2-10 units, Subcutaneous Injection, 3 times a day before meals, 0 Refills, Maintenance, 04/27/24 3:27:00 PM EDT, Injection, Partial fill upon patient request if the prescription is for a schedule II opioid drug. Start Date: 04/27/24 Status: Ordered Repeat number: 1 Piperacillin-Tazobactam 3.375 Gm, IVPB, Every 8 hours, Maintenance, 04/27/24 3:27:00 PM EDT Start Date: 04/27/24 Status: Ordered Repeat number: 1 tamsulosin 0.4 mg oral capsule 1 capsule = 0.4 mg, By Mouth, 2 times a day, 0 Refills, Maintenance, 04/14/14 2:45:46 PM EDT Start Date: 04/14/14 Status: Ordered Repeat number: 1 vancomycin 1.25 g intravenous injection = 1,250 mg, IVPB, Every 24 hours, 0 Refills, Maintenance, 04/27/24 3:27:00 PM EDT, Injection, Partialfill upon patient request if the prescription is for a schedule II opioid drug. Start Date: 04/27/24 Status: Ordered Repeat number: 1 Zioptan 0.0015% ophthalmic solution INSTILL ONE DROP IN BOTH EYES AT BEDTIME DIRECTED Start Date: 09/07/21 Status: Ordered Repeat number: 1 Problem List Condition Confirmation Course Effective Dates Status H ealth Status Informant COPD, group B, by GOLD 2017 classification Confirmed Active Diabetes Confirmed Active Hypertension Confirmed Active Hypokalemia Confirmed Active Obese class I Confirmed Active MISTY on CPAP Confirmed Active Social History Social History Type Response Smoking Status Former smoker; Tobac co user in household: No; Other: pt states he quit smoking about 24 years ago 1991; entered on: 04/06/16 Sex Sex Representation Male (finding) Patient Care team information Care Team Personnel Name: Altagracia Fritz RN Position: [facility] RN Member Role: Primary Care Nurse Name: Eduar Amaral RN Position: [facility] RN Member Role: Primary Care Nurse Name: Shannen Molina RN Position: [facility] SN RN Member Role: Primary Care Nurse Name: Denis Diehl MD Position: [facility] Outreach Member Role: PCP Address: [address] [place] [address] Telecom: Name: Nura Mobley RN Position: [facility] RN Member Role: Primary Care Nurse Name: Sara Valencia Position: [facility] Outreach Member Role: Primary Care Nurse Name: Lin Hicks RN Position: [facility] RN Member Role: Primary Care Nurse Name: Altagracia Boss RN Position: [facility] RN Member Role: Primary Care Nurse Name: Siobhan Ballesteros RN Position: [facility] AMB Nurse Member Role: Primary Care Nurse Name: Abeba Devine LPN Position: [facility] RN Member Role: Primary Care Nurse Care Team Related Persons Name: SONAM STERN Name: ELY SANTANA Insurance Providers Guarantor name: EDE SANTANA Health Plan Information #: 1 Payer: MEDICARE B Payer Identifier: Member Number: [id number] Group Number: Subscriber Identifier: [id number] Relationship to Subscriber: self Coverage Type: NA Coverage Verification Date: NA Telecom: NA Address: Health Plan Information #: 2 Payer: [employer] SECONDARY ONLY Payer Identifier: Member Number: [id number] Group Number: Subscriber Identifier: [id number] Relationship to Subscriber: self Coverage Type: MEDICARE Coverage Verification Date: NA Telecom: NA Address:
--- OUTSIDE RECORDS SUMMARY | 2025-03-05 10:51 | XMS_ITS | Clinical Summary ---
Author Organization [facility] ity Address [address] [place] [address] Care Team Providers Care Promotions Team Leader Name Role Phone Denis Diehl MD Primary Care Provider Surgical History Surgery Date Site/Laterality Comments ANKLE SURGERY PROCEDURE:ANKLE SURGERY Medical History Medical History Date Comments Asthma DX:Asthma COPD (chronic obstructive pu lmonary disease) (CMS/HCC V24, CMS/[facility] V28) DX:COPD (chronic o bstructive pulmonary disease) (HCC) Diabetes mellitus (CMS/[facility] V 24, [facility] V28) DX:Diabetes mellitus (HCC) Hypertension DX:Hypertension Family [...] 2023-2 5 season) 2024 Influenza Vaccine (#1) 2025 HIB Vaccines Aged Out No longer [...] age to complete this topic Care Teams Promotions Team Leader Relationship Specialty Start Date End Date Denis Diehl MD [address] [place] [address] Dr Citlali [place] PCP - General 09/05/22
--- OUTSIDE RECORDS SUMMARY | 2025-03-05 10:51 | XMS_ITS | Clinical Summary ---
Author Organization [facility] Address [address] [place] [address] Care Team Providers Care Glass Robot Operator Name Role Phone Denis Diehl MD Primary Care Provider [phone]- [phone] Allergies Active Allergy Reactions Criticality Noted Date [...] 1-dose 75+ series) 2021 Influenza Vaccine (#1) 2025 2, 06/02/2020, 04/20/2016 Hepatitis B Vaccines Aged Out No long er eligible based on patient's age to complete this topic RSV Ped < 20 months Aged Out No longe r eligible based on patient's age to complete this topic Care Teams Glass Robot Operator Relationship Specialty Start Date End Date Denis Diehl MD [address] [place] [address] PCP - General Family Medicine 09/05/22
--- NOTE | 2025-03-05 11:06 | A.OFFPC_ITS ---
Vital Signs 03/05/25 11:11 Height 5 ft 8 in Weight 212 lb 6 oz BMI 32.3 BP 130/60 Blood Pressure Location Rt brachial Position Sitting Respiration 14 Pulse 79 Pulse Source Pulse Oximeter Temp 98.1 F Temp Source Oral Pulse Oximetry (%) 95 Oxygen Delivery Method Room Air Intake Visit Reasons: [facility] Intake Note: patient is scheduled to fill out and discuss disability issues so disability form can be completed with pcp Operations Engineer Required: No Allergies SADI Inhibitors (SADI INHIBITORS) Allergy (Unknown, Verified 03/05/25 11:09) FACIAL SWELLING lisinopril (LISINOPRIL) Allergy (Unknown, Verified 03/05/25 11:09) FACIAL SWELLING, hives, lip edema oxycodone (From PERCOCET) Allergy (Unknown, Verified 03/05/25 11:09) JOINT STIFFNESS peanut (PEANUTS) Allergy (Unknown, Verified 03/05/25 11:09) SWELLING,THROAT,HIVES Medication List - Last Reconciled 03/05/25 by Denis Diehl MD albuterol sulfate 90 mcg/actuation 2 puffs inhalation Q4H PRN amlodipine 10 mg PO DAILY aspirin 81 mg PO DAILY blood sugar diagnostic USE DIRECTED DAILY blood sugar diagnostic (Smart BalloonTouch Ultra Test strips) check blood sugar one time daily prn as directed brinzolamide-brimonidine 1-0.2 % (Simbrinza) 1 drp ophthalmic (eye) BID laiuwgdtnu-bpodvove-rsjldadmnw 160-9-4.8 mcg/actuation (Breztri Aerosphere) 2 inhalations inhalation BID chlorthalidone 50 mg PO DAILY Held on 05/23/24. Instructions: hold until outpatient follow up epinephrine (EpiPen) 0.3 mg (0.3 mL) IM Q10M PRN 30 days finasteride 5 mg PO DAILY gabapentin 600 mg (2 x 300 mg) PO BEDTIME 30 days MDD 300mg PO glipizide ER 2.5 mg PO DAILY 90 days hydralazine 50 mg PO QID 90 days latanoprost 0.005% 1 drp ophthalmic (eye) BEDTIME metformin 1,000 mg PO BID 90 days prednisone 4 tabs daily for 4 days, 3 tabs daily for 2 days, 2 tabs daily for 2 days, 1 tab daily for 2 days PO daily; 10 days rosuvastatin 10 mg PO BEDTIME tamsulosin 0.4 mg PO BID Tobacco use date assessed: 01/07/25 Dental Screening Dental Screen Date: 01/07/25 HPI [employer] disability form HPI Details Pt presents for disability form. Hx of CAD, COPD, hypoxia, PAD. Has been following up with cardiology and sees them every 6 months. Had been hospitalized Apr-May 2024 for pneumonia. Pt reports he felt breathing has never gotten back to baseline. Continues to use his albuterol inhaler and his Breztri b.i.d. Reports worsened cough recently. [facility] Medical History Hypokalemia COVID Benign prostatic hyperplasia with urinary obstruction MISTY on CPAP Bifascicular block Atherosclerotic cardiovascular disease COPD (chronic obstructive pulmonary disease) Carotid stenosis Hypertension Diabetes Hypercholesteremia Surgical History H/O colonoscopy Hx of elbow surgery History of eyelid surgery S/P TURP (status post transurethral resection of prostate) (~2019) Status post carotid surgery Hx of cataract Family History Father CVD (cardiovascular disease) Mother No problems noted. Sister Cancer Sister Cancer Social History Household Members: None Housing: House Do you presently have visiting nurse or other home services: Yes Alcohol intake: current Alcohol intake frequency: a few times a week Comment: pt. is ambulatory, steady on foot. Patient Tobacco Use Status: Former Tobacco user e-Cigarette/Vaping Use: Never Used Second Hand Smoke Exposure: No Substance Use Type: Prescription Drugs Advance Directives Date on File: 04/27/24 service: No Current occupational status: retired Current occupational exposures/hazards: No Cognitive needs: No Hearing needs: No Vision needs: No Questionnaire Thrive Questionnaire Date Thrive assessed: 10/02/24 I am a: Patient What is your living situation today?: I have a steady place to live Within the past 12 months, did the food you bought not last and you didn't have the money to get more?: Never true Within the past 12 months, did you worry whether your food would run out before you got money to buy more?: Never true Do you have trouble paying for medicines?: No Do you have trouble getting transportation to medical appointments?: No Do you have trouble paying your heating and electricity bill?: No Do you have trouble taking care of your child, family member or friend?: No Do you have trouble with day-to-day activities such as bathing, preparing meals, shopping, managing finances, etc.?: No Are you currently unemployed and looking for a job?: No Are you interested in more education?: No Please select the resources that you would like help with: None Currently or been in a relationship where the following occur: No concerns reported THRIVE Score: 0 RUDY-7 AMB Questionnaire RUDY-7 Date RUDY - 7 assessed: 10/04/23 Source: Developed by Drs. Gary Damian, Elo Najera, Martin Ambrocio and colleagues, with an educational daina from [employer]. Review of Systems Const Denies chills, Denies fatigue, Denies fever(s), Denies headache(s) and Denies weakness ENT Denies dizziness and Denies headache(s) Card Denies dyspnea Resp Reports cough, Denies dyspnea, Denies wheezing and Denies other (shortness of breath) Musc Denies numbness and Denies tingling Neuro Denies dizziness, Denies headache(s), Denies numbness, Denies tingling and Denies weakness Psych Denies anxiety and Denies depression Endo Denies fatigue Aller/Immun Denies wheezing Physical exam (Primary Care) Vital Signs: Last Vital Signs Temp 98.1 F 03/05/25 11:11 Pulse 79 03/05/25 11:11 Resp 14 03/05/25 11:11 BP 130/60 03/05/25 11:11 Pulse Ox 95 03/05/25 11:11 Oxygen Delivery Method Room Air 03/05/25 11:11 BMI result Body Mass Index 32.3 Tobacco/Smoking Status: Tobacco use Status Tobacco use date assessed 01/07/25 03/05/25 11:13 Patient Tobacco Use Status Former Tobacco user 03/05/25 11:13 e-Cigarette/Vaping Use Never Used 03/05/25 11:13 Thrive Assessment: Date of Thrive Assessment Date Thrive assessed 10/02/24 03/05/25 11:13 Currently or been in a relationship where the following occur: No concerns reported Const General: well developed; No acute distress Nutritional Appearance: well nourished Orientation/consciousness: patient oriented x3 HENMT Head: Yes normocephalic and Yes atraumatic Eyes General: appearance normal, both eyes and all related structures Pupils: Equal, round and reactive pupils present EOM: EOMs intact bilaterally Resp Other: Distant breath sounds Effort & Inspection: normal respiratory effort Auscultation: clear to auscultation bilaterally Cardio Rate: regular rate Rhythm: regular rhythm Heart sounds: S1 normal heart sound present, S2 normal heart sound present, no gallops, no murmurs and no rubs Neuro General: patient oriented x3 and gait normal Cranial nerves: Yes Equal, round and reactive pupils present Psych Affect: normal affect Coding Level of Care Code Est Pt Level 4 (44367) Diagnoses Coronary artery disease I25.10 Chronic obstructive pulmonary disease with acute lower respiratory infection J44.0 COPD type: COPD with acute lower respiratory infection Hypoxia R09.02 PAD (peripheral artery disease) I73.9 Assessment & Plan Assessment & Plan (1) Coronary artery disease: Code(s): I25.10 - Atherosclerotic heart disease of [place] coronary artery without angina pectoris Category: Medical (2) COPD (chronic obstructive pulmonary disease): Code(s): J44.9 - Chronic obstructive pulmonary disease, unspecified Category: Medical Qualifiers: COPD type: COPD with acute lower respiratory infection Qualified Code(s): J44.0 - Chronic obstructive pulmonary disease with (acute) lower respiratory infection (3) Hypoxia: Code(s): R09.02 - Hypoxemia Category: Medical (4) PAD (peripheral artery disease): Code(s): I73.9 - Peripheral vascular disease, unspecified Category: Medical Plan Patient with history of COPD/emphysema and worsened hypoxia and nocturnal hypoxemia after pneumonia in May 09, 2024 to June 08, 2024 in the setting coronary artery disease presents for disability forms. Patient is unable to walk more than 100 ft or stand for more than 1 minute without significant shortness of breath and fatigue as well as hypoxia. Using his inhaled medications as prescribed. Taking his other medications including medications for coronary artery disease as prescribed Filled out [employer] paperwork for disability today. Patient also notes worsened cough recently. Checking chest x-ray. He will continue his inhaled meds as prescribed. Giving him prednisone and a Z-Jefferson. Orders: Orders XR chest 2V Today J44.1 - Chronic obstructive pulmonary disease with (acute) exacerbation Medications: New prednisone 4 tabs daily for 4 days, 3 tabs daily for 2 days, 2 tabs daily for 2 days, 1 tab daily for 2 days PO daily; 28 tabs 0RF 10 days J44.1 - Chronic obstructive pulmonary disease with (acute) exacerbation
[2025-03-05 11:11] VITALS: BP 130/60; PULSE 79; RESP 14; TEMP 36.7; O2SAT 95; BMI 32.3
== END 2025-03-05 12:18 | disposition home or self-care (01) ==
LOC: HO.HMCFM 10:21
PROVIDERS: PCP Family Medicine; Visit Provider Family Medicine
DX: I25.10 Atherosclerotic heart disease of native coronary artery without angina pectoris (principal); J44.0 Chronic obstructive pulmonary disease with (acute) lower respiratory infection; R09.02 Hypoxemia; I73.9 Peripheral vascular disease, unspecified

== ENCOUNTER → 2025-03-05 10:20 | Outpatient (BNVA) | payer MEDICARE, SELFPAY | PROVIDERS: PCP Family Medicine; Visit Provider Family Medicine | DX: I25.10 Atherosclerotic heart disease of native coronary artery without angina pectoris (principal); R09.02 Hypoxemia; I73.9 Peripheral vascular disease, unspecified; J44.0 Chronic obstructive pulmonary disease with (acute) lower respiratory infection | CPT/HCPCS: 99212 ==

== ENCOUNTER 2025-03-09 08:38 | Outpatient (REF) | payer MEDICARE, SELFPAY ==
--- NOTE | ~2025-03-09 | XR_ITS ---
EXAMINATION: XR CHEST 2 VIEWS HISTORY: J44.1 - Chronic obstructive pulmonary disease with (acute) exacerbation COMPARISON: Comparison is made with the prior examination dated 05/15/2024 and 02/06/2021. FINDINGS: PA and lateral views of the chest are submitted. The lungs are hyperinflated, consistent with COPD. There is linear scarring at the left lung base. The lungs are otherwise clear. There is no pleural effusion, pneumothorax, or pulmonary vascular congestion. The heart is normal in size. The aorta is calcified. There is degenerative disc disease of the spine. XR/XR chest 2V IMPRESSION: COPD. No acute cardiopulmonary abnormality. Electronically signed by: Gary Marcial MD 03/09/2025 09:13 AM EDT
--- OUTSIDE RECORDS SUMMARY | 2025-03-09 08:45 | XMS_ITS | Clinical Summary ---
Author Organization [facility] Address [address] [place] [address] Care Team Providers Care Military Analyst Name Role Phone Denis Diehl MD Primary Care Provider [phone] Allergies Active Allergy Reactions Criticality Noted Date [...] age to complete this topic Care Teams Military Analyst Relationship Specialty Start Date End Date Denis Diehl MD [address] [place] [address] PCP - General Family Medicine 09/05/22
--- OUTSIDE RECORDS SUMMARY | 2025-03-09 08:45 | XMS_ITS | Clinical Summary ---
Author Organization [facility] ity Address [address] [place] [address] Care Team Providers Care Television Repairer Name Role Phone Denis Diehl MD Primary Care Provider Surgical History Surgery Date Site/Laterality Comments ANKLE SURGERY PROCEDURE:ANKLE SURGERY Medical History Medical History Date Comments Asthma DX:Asthma COPD (chronic obstructive pu lmonary disease) (CMS/HCC V24, CMS/[facility] V28) DX:COPD (chronic o bstructive pulmonary disease) (HCC) Diabetes mellitus (CMS/[facility] V 24, [facility] V28) DX:Diabetes mellitus (HCC) Hypertension [...] series) 2021 Cholesterol Screening (Lipid Panel) 09/23/2023 Falls Risk Assessment 09/23/2023 Hepatitis C Screening 09/23/2023 Social Influencers of Health Screening 09/23/2023 COVID-19 Vaccine ( - 2023-2 5 season) 2024 Depression Screening 08/20/2024 Influenza Vaccine (#1) 2025 HIB Vaccines Aged [...] age to complete this topic Care Teams Television Repairer Relationship Specialty Start Date End Date Denis Diehl MD [address] [place] [address] Dr Citlali [place] PCP - General 09/05/22
== END 2025-03-09 08:39 | disposition home or self-care (01) ==
LOC: HO.XRAY 08:38
PROVIDERS: PCP Family Medicine; Visit Provider Family Medicine
DX: J44.1 Chronic obstructive pulmonary disease with (acute) exacerbation (principal)
CPT/HCPCS: 71046

== ENCOUNTER → 2025-03-09 08:42 | Outpatient (BNV) | payer MEDICARE, SELFPAY | PROVIDERS: PCP Family Medicine; Visit Provider Radiology Diagnostic Radiology | DX: J44.9 Chronic obstructive pulmonary disease, unspecified (principal) | CPT/HCPCS: 71046 ==

== ENCOUNTER 2025-04-14 09:21 | Outpatient (AMB) | payer MEDICARE, SELFPAY ==
[2025-04-14 09:45] VITALS: BP 128/68; PULSE 78; O2SAT 97; BMI 32.2
--- NOTE | 2025-04-14 09:45 | A.OFFVIS_ITS ---
Vital Signs 04/14/25 09:45 Height 5 ft 8 in Weight 212 lb BMI 32.2 BP 128/68 Blood Pressure Location Lt brachial Position Sitting Pulse 78 Pulse Source Pulse Oximeter Pulse Oximetry (%) 97 Oxygen Delivery Method Room Air Intake Visit Reasons: Hypoxia/COPD/Pneumonia Timber Management Specialist Required: No Air Defence Officer: Air Defence Officer offered & declined Accompanied by: Self / Same As Patient Allergies SADI Inhibitors (SADI INHIBITORS) Allergy (Unknown, Verified 04/16/25 10:29) FACIAL SWELLING lisinopril (LISINOPRIL) Allergy (Unknown, Verified 04/16/25 10:29) FACIAL SWELLING, hives, lip edema oxycodone (From PERCOCET) Allergy (Unknown, Verified 04/16/25 10:29) JOINT STIFFNESS peanut (PEANUTS) Allergy (Unknown, Verified 04/16/25 10:29) SWELLING,THROAT,HIVES Medication List - Last Reconciled 04/14/25 by Justine Smith LPN albuterol sulfate 90 mcg/actuation 2 puffs inhalation Q4H PRN amlodipine 10 mg PO DAILY aspirin 81 mg PO DAILY blood sugar diagnostic USE DIRECTED DAILY blood sugar diagnostic ([employer] Ultra Test strips) check blood sugar one time daily prn as directed brinzolamide-brimonidine 1-0.2 % (Simbrinza) 1 drp ophthalmic (eye) BID sbuadvnkyg-ehyycwvc-apbpeqpwjl 160-9-4.8 mcg/actuation (Breztri Aerosphere) 2 inhalations inhalation BID epinephrine (EpiPen) 0.3 mg (0.3 mL) IM Q10M PRN 30 days finasteride 5 mg PO DAILY gabapentin 600 mg (2 x 300 mg) PO BEDTIME 30 days MDD 300mg PO glipizide ER 2.5 mg PO DAILY 90 days hydralazine 50 mg PO QID 90 days latanoprost 0.005% 1 drp ophthalmic (eye) BEDTIME metformin 1,000 mg PO BID 90 days rosuvastatin 10 mg PO BEDTIME tamsulosin 0.4 mg PO BID HPI HPI Hypoxia/COPD/Pneumonia: Details: Taqueria is a pleasant 79-year-old male, former 40 pack year smoker, quit 30 years ago, with underlying COPD, asthma, MISTY on CPAP, h/o acute respiratory failure with hypoxia secondary to PNA 04/2024, hypertension, diabetes, coronary artery disease and hyperlipidemia. 6MWT previously performed and patient did not require supplemental oxygen, and per titration study no longer required supplemental oxygen at [facility] with changes in pressures to 20 cm H20. He experiences occasional daytime tiredness, attributed to waking up early in the morning, but generally feels the CPAP is beneficial. CPAP is managed through [facility] and he has upcoming appt in May. His respiratory symptoms are moderately controlled using Breztri and albuterol MDI QD prior to sleep otherwise uses infrequently. He continues to report decrease exercise tolerance which has been present since admission for PNA last year and feels this significantly impacted his respiratory function, leading to a disability claim due to decreased ability to work full-time. He denies any visits to urgent care or hospitalizations related to respiratory distress however did have ED evaluation for diverticulitis about a month ago. He is scheduled to follow up with a audio video technician in June for further management. He is also under the care of cardiology and denies any changes to medications or need for further testing at this time. [facility] Medical History Hypokalemia COVID Benign prostatic hyperplasia with urinary obstruction MISTY on CPAP Bifascicular block Atherosclerotic cardiovascular disease COPD (chronic obstructive pulmonary disease) Carotid stenosis Hypertension Diabetes Hypercholesteremia Surgical History H/O colonoscopy Hx of elbow surgery History of eyelid surgery S/P TURP (status post transurethral resection of prostate) (~2019) Status post carotid surgery Hx of cataract Family History Father CVD (cardiovascular disease) Mother No problems noted. Sister Cancer Sister Cancer Social History Household Members: None Housing: House Do you presently have visiting nurse or other home services: Yes Alcohol intake: current Alcohol intake frequency: a few times a week Comment: pt. is ambulatory, steady on foot. Patient Tobacco Use Status: Former Tobacco user e-Cigarette/Vaping Use: Never Used Second Hand Smoke Exposure: No Substance Use Type: Prescription Drugs Advance Directives Date on File: 04/27/24 service: No Current occupational status: retired Current occupational exposures/hazards: No Cognitive needs: No Hearing needs: No Vision needs: No Review of Systems Const Denies chills, Denies excessive sweating, Denies fever(s), Denies headache(s) and Denies night sweats ENT Reports Normal hearing present, Denies headache(s), Denies nasal congestion, Denies nasal discharge and Denies sore throat Card Denies chest pain, Denies chest pain at rest, Denies chest pain with activity, Denies claudication, Denies leg edema, Denies dyspnea, Denies orthopnea and Denies paroxysmal nocturnal dyspnea Resp Denies chest congestion, Denies cough, Denies excessive phlegm production, Denies pain on inspiration, Denies pain with cough, Denies dyspnea, Denies stridor and Denies wheezing Musc Denies myalgias Neuro Reports Normal hearing present and Denies headache(s) Endo Denies excessive sweating Barry/Lymph Denies lymphadenopathy Aller/Immun Denies seasonal rhinorrhea and Denies wheezing Physical Exam Vital Signs: Last Vital Signs Pulse 78 04/14/25 09:45 BP 128/68 04/14/25 09:45 Pulse Ox 97 04/14/25 09:45 Oxygen Delivery Method Room Air 04/14/25 09:45 BMI result Body Mass Index 32.2 Const General: cooperative, healthy appearing, comfortable, no acute distress, well developed and alert Nutritional Appearance: obese Orientation/consciousness: patient oriented x3 Limitations: no limitations HEENT Head: Yes normal to inspection, Yes normocephalic and Yes atraumatic Ears: hearing grossly normal bilaterally and external ears normal Eyes EOM: EOMs intact bilaterally Neck Neck: Yes normal visual inspection and Yes no lymphadenopathy Lymphatic: no lymphadenopathy noted Chest Chest palpation & inspection: normal inspection of the chest Resp Effort & Inspection: normal respiratory effort, able to speak in complete sentences, no audible wheezes, no cough, no stridor, not tachypneic, no tripod positioning and no use of accessory muscles Auscultation: diminished lung sounds Cardio Jugular venous distension: no JVD Rate: regular rate Rhythm: regular rhythm Skin Other: warm, dry General skin exam: no rashes or lesions noted Neuro General: patient oriented x3 Cranial nerves: Yes Normal hearing present Cognition (Neuro): normal cognition Gait exam (Neuro): Normal gait present Extrem General: Yes normal to inspection, Yes capillary refill normal, Yes no clubbing, cyanosis or edema and Yes no pedal edema Psych Appearance: grossly normal and well kempt Speech and movement: Normal speech and movement present and Clear speech present Affect: normal affect Attitude: cooperative Thought process: Normal thought process present Thought content: Normal thought content present Insight: Good insight present (Psych) Judgement: Good judgement present (Psych) Assessment & Plan Assessment & Plan (1) COPD (chronic obstructive pulmonary disease): Code(s): J44.9 - Chronic obstructive pulmonary disease, unspecified Category: Medical Qualifiers: COPD type: COPD with acute lower respiratory infection Qualified Code(s): J44.0 - Chronic obstructive pulmonary disease with (acute) lower res piratory infection (2) MISTY on CPAP: Code(s): G47.33 - Obstructive sleep apnea (adult) (pediatric); Z99.89 - Dependence on other enabling machines and devices Category: Medical Plan At this time, Taqueria reports good control of respiratory symptoms on current regimen, advised to continue. Discussed with the patient the management of his obstructive sleep apnea, emphasizing the importance of continued CPAP use and follow-up with sleep medicine. We reviewed his recent hospitalization for diverticulitis and the plan to follow up with gastroenterology. I also advised on preventative measures, including the RSV vaccine, and discussed the resolution of his pneumonia as confirmed by the July CAT scan. All questions were answered and patient is in agreement of plan. Will follow-up in 3- 6 months, or sooner if needed. Coding Level of Care Code Est Pt Level 3 (15752) Diagnoses Chronic obstructive pulmonary disease with acute lower respiratory infection J44.0 COPD type: COPD with acute lower respiratory infection MISTY on CPAP G47.33; Z99.89
--- OUTSIDE RECORDS SUMMARY | 2025-04-14 09:47 | XMS_ITS | Clinical Summary ---
Author Organization [facility] ity Address [address] [place] [address] Care Team Providers Care Press Feeder Broomcorn Name Role Phone Denis Diehl MD Primary Care Provider Surgical History Surgery Date Site/Laterality Comments ANKLE SURGERY PROCEDURE:ANKLE SURGERY Medical History Medical History Date Comments Asthma DX:Asthma COPD (chronic obstructive pu lmonary disease) (CMS/HCC V24, CMS/[facility] V28) DX:COPD (chronic o bstructive pulmonary disease) (HCC) Diabetes mellitus (CMS/[facility] V 24, [facility] V28) DX:Diabetes mellitus (HCC) Hypertension [...] age to complete this topic Care Teams Press Feeder Broomcorn Relationship Specialty Start Date End Date Denis Diehl MD [address] [place] [address] Dr Citlali MA PCP - General 09/05/22
--- OUTSIDE RECORDS SUMMARY | 2025-04-14 09:48 | XMS_ITS | Clinical Summary ---
Author Organization [facility] Address [address] [place] [id number] Care Team Providers Care Levelman Name Role Phone Denis Diehl MD Primary Care Provider [phone] Allergies Active Allergy Reactions Criticality Noted Date [...] age to complete this topic Care Teams Levelman Relationship Specialty Start Date End Date Denis Diehl MD [address] [place] [address] PCP - General Family Medicine 09/05/22
== END 2025-04-14 10:23 | disposition home or self-care (01) ==
LOC: HO.HPSW 09:22
PROVIDERS: PCP Family Medicine; Visit Provider Nurse Practitioner Family
DX: J44.0 Chronic obstructive pulmonary disease with (acute) lower respiratory infection (principal); G47.33 Obstructive sleep apnea (adult) (pediatric); Z99.89 Dependence on other enabling machines and devices
CPT/HCPCS: 99213

== ENCOUNTER → 2025-04-14 09:21 | Outpatient (BNVA) | payer MEDICARE, SELFPAY | PROVIDERS: PCP Family Medicine; Visit Provider Nurse Practitioner Family | DX: J44.0 Chronic obstructive pulmonary disease with (acute) lower respiratory infection (principal); G47.33 Obstructive sleep apnea (adult) (pediatric); Z99.89 Dependence on other enabling machines and devices | CPT/HCPCS: 99212 ==

== ENCOUNTER 2025-04-16 10:13 | Outpatient (AMB) | payer MEDICARE, SELFPAY ==
--- NOTE | 2025-04-16 10:26 | MHC.PC.OV ---
Vital Signs 04/16/25 10:30 Height 5 ft 8 in Weight 213 lb BMI 32.4 BP 135/66 Blood Pressure Location Lt brachial Position Sitting Respiration 20 Pulse 79 Pulse Source Pulse Oximeter Temp 97.8 F Temp Source Oral Pulse Oximetry (%) 95 Oxygen Delivery Method Room Air Intake Visit Reasons: f/u diabetes, HTN Intake Note: patient here for follow up on HTN and Diabetes Decorating And Assembly Supervisor Required: No Allergies SADI Inhibitors (SADI INHIBITORS) Allergy (Unknown, Verified 04/16/25 10:29) FACIAL SWELLING lisinopril (LISINOPRIL) Allergy (Unknown, Verified 04/16/25 10:29) FACIAL SWELLING, hives, lip edema oxycodone (From PERCOCET) Allergy (Unknown, Verified 04/16/25 10:29) JOINT STIFFNESS peanut (PEANUTS) Allergy (Unknown, Verified 04/16/25 10:29) SWELLING,THROAT,HIVES Medication List - Last Reconciled 04/16/25 by Denis Diehl MD albuterol sulfate 90 mcg/actuation 2 puffs inhalation Q4H PRN amlodipine 10 mg PO DAILY 90 days aspirin 81 mg PO DAILY blood sugar diagnostic USE DIRECTED DAILY blood sugar diagnostic ([employer] Ultra Test strips) check blood sugar one time daily prn as directed brinzolamide-brimonidine 1-0.2 % (Simbrinza) 1 drp ophthalmic (eye) BID znceqquibj-ebixumbf-nqpjjverwb 160-9-4.8 mcg/actuation (Breztri Aerosphere) 2 inhalations inhalation BID epinephrine (EpiPen) 0.3 mg (0.3 mL) IM Q10M PRN 30 days finasteride 5 mg PO DAILY gabapentin 600 mg (2 x 300 mg) PO BEDTIME 30 days MDD 300mg PO glipizide ER 2.5 mg PO DAILY 90 days hydralazine 50 mg PO QID 90 days latanoprost 0.005% 1 drp ophthalmic (eye) BEDTIME metformin 1,000 mg PO BID 90 days rosuvastatin 10 mg PO BEDTIME tamsulosin 0.4 mg PO BID Tobacco use date assessed: 04/16/25 Fall risk assessment: No Falls in past year Last assessed Fall Risk: 04/16/25 Dental Screening Dental Screen Date: 04/16/25 Did you have a dental visit in the last 12 months?: Yes Did you have a dental problem in the last 6 months where you did not have access to dental care?: No Was dental information given to patient?: Patient has dentist HPI f/u diabetes, HTN HPI Details Patient presents to follow-up hypertension and diabetes Blood pressure today 135/66. He is taking hydralazine and amlodipine as prescribed. A1c today 6.9% and he is taking glipizide and metformin as prescribed. Followed by pulmonology for COPD and hypoxia. Also history of coronary artery disease Had filled out disability paperwork for patient as he is unable to walk greater than 100 ft or stand greater than 1 minute without rest. [facility] Medical History Hypokalemia COVID Benign prostatic hyperplasia with urinary obstruction MISTY on CPAP Bifascicular block Atherosclerotic cardiovascular disease COPD (chronic obstructive pulmonary disease) Carotid stenosis Hypertension Diabetes Hypercholesteremia Surgical History H/O colonoscopy Hx of elbow surgery History of eyelid surgery S/P TURP (status post transurethral resection of prostate) (~2019) Status post carotid surgery Hx of cataract Family History Father CVD (cardiovascular disease) Mother No problems noted. Sister Cancer Sister Cancer Social History Household Members: None Housing: House Do you presently have visiting nurse or other home services: Yes Alcohol intake: current Alcohol intake frequency: a few times a week Comment: pt. is ambulatory, steady on foot. Patient Tobacco Use Status: Former Tobacco user e-Cigarette/Vaping Use: Never Used Second Hand Smoke Exposure: No Substance Use Type: Prescription Drugs Advance Directives Date on File: 04/27/24 service: No Current occupational status: retired Current occupational exposures/hazards: No Cognitive needs: No Hearing needs: No Vision needs: No Questionnaire Thrive Questionnaire Date Thrive assessed: 10/02/24 I am a: Patient What is your living situation today?: I have a steady place to live Within the past 12 months, did the food you bought not last and you didn't have the money to get more?: Never true Within the past 12 months, did you worry whether your food would run out before you got money to buy more?: Never true Do you have trouble paying for medicines?: No Do you have trouble getting transportation to medical appointments?: No Do you have trouble paying your heating and electricity bill?: No Do you have trouble taking care of your child, family member or friend?: No Do you have trouble with day-to-day activities such as bathing, preparing meals, shopping, managing finances, etc.?: No Are you currently unemployed and looking for a job?: No Are you interested in more education?: No Please select the resources that you would like help with: None Currently or been in a relationship where the following occur: No concerns reported THRIVE Score: 0 RUDY-7 AMB Questionnaire RUDY-7 Date RUDY - 7 assessed: 10/04/23 Source: Developed by Drs. Gary Damian, Elo Najera, Martin Ambrocio and colleagues, with an educational daina from [employer]. Review of Systems Const Denies chills, Denies fatigue, Denies fever(s), Denies headache(s) and Denies weakness ENT Denies dizziness and Denies headache(s) Card Denies chest pain, Denies lightheadedness, Reports dyspnea (Chronic dyspnea with exertion and shortness of breath. At baseline today.) and Denies other (Palpitations) Resp Denies cough, Reports dyspnea (Chronic dyspnea with exertion and shortness of breath. At baseline today.), Denies wheezing and Denies other ( shortness of breath) Musc Denies numbness and Denies tingling Neuro Denies dizziness, Denies headache(s), Denies numbness, Denies tingling, Denies paresthesias and Denies weakness Psych Denies anxiety and Denies depression Endo Denies fatigue Aller/Immun Denies wheezing Physical exam (Primary Care) Vital Signs: Last Vital Signs Temp 97.8 F 04/16/25 10:30 Pulse 79 04/16/25 10:30 Resp 20 04/16/25 10:30 BP 135/66 04/16/25 10:30 Pulse Ox 95 04/16/25 10:30 Oxygen Delivery Method Room Air 04/16/25 10:30 BMI result Body Mass Index 32.4 Tobacco/Smoking Status: Tobacco use Status Tobacco use date assessed 04/16/25 04/16/25 10:34 Patient Tobacco Use Status Former Tobacco user 04/16/25 10:34 e-Cigarette/Vaping Use Never Used 04/16/25 10:34 Thrive Assessment: Date of Thrive Assessment Date Thrive assessed 10/02/24 04/16/25 10:34 Currently or been in a relationship where the following occur: No concerns reported Const General: no acute distress and well developed Nutritional Appearance: well nourished Orientation/consciousness: patient oriented x3 HENMT Head: Yes normocephalic and Yes atraumatic Eyes General: appearance normal, both eyes and all related structures Pupils: Equal, round and reactive pupils present EOM: EOMs intact bilaterally Resp Other: Distant Breath Sounds Effort & Inspection: normal respiratory effort Auscultation: clear to auscultation bilaterally Cardio Rate: regular rate Rhythm: regular rhythm Heart sounds: S1 normal heart sound present, S2 normal heart sound present, no gallops, no murmurs and no rubs Neuro General: patient oriented x3 and gait normal Cranial nerves: Yes Equal, round and reactive pupils present Psych Affect: normal affect Results AMB Hemoglobin A1c AMB Hemoglobin A1c 6.9 % Last Edit by Marychuy Del Real CMA on 04/16/25 10:46 Results Reviewed Results Reviewed: Laboratory Last Values Hgb A1c (Clinic) 6.9 % (4.0-6.0) H 04/16/25 10:43 Coding Level of Care Code Est Pt Level 4 (16771) Diagnoses Essential hypertension I10 Diabetes type 2, controlled E11.9 Chronic obstructive pulmonary disease with acute lower respiratory infection J44.0 COPD type: COPD with acute lower respiratory infection Hypoxia R09.02 Assessment & Plan Assessment & Plan (1) Essential hypertension: Code(s): I10 - Essential (primary) hypertension Category: Medical Plan: Blood pressure is fairly well controlled. Goal is less than 130/80 Continue current medications and work at diet lower in salt/sodium as well as weight loss. No medication changes made today. (2) Diabetes type 2, controlled: Code(s): E11.9 - Type 2 diabetes mellitus without complications Category: Medical Plan: A1c 6.9%. Controlled. Goal is less than 7.0% Continue current medications (3) COPD (chronic obstructive pulmonary disease): Code(s): J44.9 - Chronic obstructive pulmonary disease, unspecified Category: Medical Qualifiers: COPD type: COPD with acute lower respiratory infection Qualified Code(s): J44.0 - Chronic obstructive pulmonary disease with (acute) lower respiratory infection Plan: Breathing is at baseline. Patient is permanently disabled however and has inability to walk more than 100 ft or stand more than 1 minute without rest. Follow-up with pulmonology as recommended (4) Hypoxia: Code(s): R09.02 - Hypoxemia Category: Medical Plan: As above Orders: Orders AMB Hemoglobin A1c Today E11.8 - Type 2 diabetes mellitus with unspecified complications Complete Blood Count Auto Diff Today I25.10 - Atherosclerotic heart disease of ewiia[place]ayp coronary artery without angina pectoris, Z00.00 - Encounter for general adult medical examination without abnormal findings Comprehensive Met. Panel Today I25.10 - Atherosclerotic heart disease of [place]wiia[place]ay[place] coronary artery without angina pectoris Medications: Changed From amlodipine 10 mg PO DAILY 30 tabs 5RF To amlodipine 10 mg PO DAILY 90 tabs 5RF 90 days
[2025-04-16 10:30] VITALS: BP 135/66; PULSE 79; RESP 20; TEMP 36.6; O2SAT 95; BMI 32.4
--- OUTSIDE RECORDS SUMMARY | 2025-04-16 11:30 | XMS_ITS | Clinical Summary ---
Author Organization [facility] ity Address [address] [place] [address] Care Team Providers Care Manager Field Sales Name Role Phone Denis Diehl MD Primary Care Provider Surgical History Surgery Date Site/Laterality Comments ANKLE SURGERY PROCEDURE:ANKLE SURGERY Medical History Medical History Date Comments Asthma DX:Asthma COPD (chronic obstructive pu lmonary disease) (CMS/HCC V24, CMS/HCC V28) DX:COPD (chronic o bstructive pulmonary disease) (HCC) Diabetes mellitus (CMS/[facility] V 24, [facility] V28) DX:Diabetes mellitus (HCC) Hypertension [...] age to complete this topic Care Teams Manager Field Sales Relationship Specialty Start Date End Date Denis Diehl MD [address] [place] [address] Dr Citlali MA PCP - General 09/05/22
--- OUTSIDE RECORDS SUMMARY | 2025-04-16 11:30 | XMS_ITS | Clinical Summary ---
Author Organization [facility] Address [address] [place] [address] Care Team Providers Care Independent Contractor Name Role Phone Denis Diehl MD Primary Care Provider [phone] Allergies Active Allergy Reactions Criticality Noted Date [...] age to complete this topic Care Teams Independent Contractor Relationship Specialty Start Date End Date Denis Diehl MD [address] [place] [address] PCP - General Family Medicine 09/05/22
== END 2025-04-16 11:43 | disposition home or self-care (01) ==
LOC: HO.HMCFM 10:14
PROVIDERS: PCP Family Medicine; Visit Provider Family Medicine
DX: I10 Essential (primary) hypertension (principal); E11.9 Type 2 diabetes mellitus without complications; J44.0 Chronic obstructive pulmonary disease with (acute) lower respiratory infection; R09.02 Hypoxemia; E11.8 Type 2 diabetes mellitus with unspecified complications

== ENCOUNTER → 2025-04-16 10:13 | Outpatient (BNVA) | payer MEDICARE, SELFPAY | PROVIDERS: PCP Family Medicine; Visit Provider Family Medicine | DX: I10 Essential (primary) hypertension (principal); E11.9 Type 2 diabetes mellitus without complications; J44.0 Chronic obstructive pulmonary disease with (acute) lower respiratory infection; R09.02 Hypoxemia | CPT/HCPCS: 83036; 99212 ==

== ENCOUNTER 2025-05-21 10:07 | Outpatient (AMB) | payer MEDICARE, SELFPAY ==
[2025-05-21 10:34] VITALS: BP 142/62; PULSE 85; O2SAT 95; BMI 32.2
--- NOTE | 2025-05-21 10:34 | A.OFFVIS_ITS ---
Vital Signs 05/21/25 10:34 Height 5 ft 8 in Weight 212 lb 2 oz BMI 32.2 BP 142/62 H Blood Pressure Location Rt brachial Position Sitting Pulse 85 Pulse Source Pulse Oximeter Pulse Oximetry (%) 95 Oxygen Delivery Method Room Air Intake Visit Reasons: 6mo follow up MISTY Intake Note: Patient presents follow up MISTY. Compliance in chart(90/90days, >=4hrs-96%, Average Usage-7hr 13min, Pressure-20cm, Med Leaks-6.3, AHI-11.3). Accompanied by: Self / Same As Patient Allergies SADI Inhibitors (SADI INHIBITORS) Allergy (Unknown, Verified 05/21/25 10:38) FACIAL SWELLING lisinopril (LISINOPRIL) Allergy (Unknown, Verified 05/21/25 10:38) FACIAL SWELLING, hives, lip edema oxycodone (From PERCOCET) Allergy (Unknown, Verified 05/21/25 10:38) JOINT STIFFNESS peanut (PEANUTS) Allergy (Unknown, Verified 05/21/25 10:38) SWELLING,THROAT,HIVES HPI Comments Details: 79 y/o male patient presents for follow up of sleep apnea he is on CPAP therapy. MISTY Compliance Report Reviewed February 2025 - Apr 2025 Total average use is >4 hours and 90/90 days 86% and daily use is 7hrs and 20min Pressures Median are [id number], 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 Pt. is currently set at cpap [id number] and feels fine, he sleeps well with his machine and wakes up feel better since starting use. He was titrated to [id number] on 09/2024 and he declines to continue at these pressures as he is unable to get sufficient air intake. He looks fatigued today with bilateral scleral injections due to chronic allergies. He woke up at 5am today to get to the clinic on time and he notices he takes a bit longer to complete tasks than previously. We reviewed his compliance today and discussed leaks of 116, and AHI is elevated to 11.3/hr. he denies any changes, but notice the pressures have always been [id number]. He sleeps for about 7 hours a night with one bathroom break, feels refreshed in the morning and once he has his coffee he is ready to start his day. He agrees to settings of [id number] despite being titrated to [id number] recently by Pulmonology as he is no longer on O2. We will monitor AHI. He c/o L. shoulder pain, L.and R. hip pain and LBP, sees a chiropractor for adjustments as needed for pain. He takes potassium and COq10 supplements. His A1c is elevated today. His feet are stiff, uncomfortable, bilaterally and painful to touch on the dorsal aspects. We discussed patho-physiology of sleep today, and ideally want him to achieve efficient levels of N3 and REM sleep daily. 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 He stays busy and is active. He drinks 2 drinks on the weekend. [facility] Medical History Hypokalemia COVID Benign prostatic hyperplasia with urinary obstruction MISTY on CPAP Bifascicular block Atherosclerotic cardiovascular disease COPD (chronic obstructive pulmonary disease) Carotid stenosis Hypertension Diabetes Hypercholesteremia Surgical History H/O colonoscopy Hx of elbow surgery History of eyelid surgery S/P TURP (status post transurethral resection of prostate) (~2019) Status post carotid surgery Hx of cataract Family History Father CVD (cardiovascular disease) Mother No problems noted. Sister Cancer Sister Cancer Social History Household Members: None Housing: House Do you presently have visiting nurse or other home services: Yes Alcohol intake: current Alcohol intake frequency: a few times a week Comment: pt. is ambulatory, steady on foot. Patient Tobacco Use Status: Former Tobacco user e-Cigarette/Vaping Use: Never Used Second Hand Smoke Exposure: No Substance Use Type: Prescription Drugs Advance Directives Date on File: 04/27/24 service: No Current occupational status: retired Current occupational exposures/hazards: No Cognitive needs: No Hearing needs: No Vision needs: No Physical Exam Vital Signs: Last Vital Signs Pulse 85 05/21/25 10:34 BP 142/62 H 05/21/25 10:34 Pulse Ox 95 05/21/25 10:34 Oxygen Delivery Method Room Air 05/21/25 10:34 BMI result Body Mass Index 32.2 Const General: cooperative Orientation/consciousness: patient oriented x3 Eyes Pupils: Equal, round and reactive pupils present Resp Effort & Inspection: normal respiratory effort and able to speak in complete sentences Neuro Other: upper extremity mild tremor l. side. feet bilaterally 2+pitting edema to shins General: patient oriented x3, gait normal and moves all extremities Cranial nerves: Yes CN's II-XII intact bilaterally, Yes Equal, round and reactive pupils present, Yes Normal accommodation reflex present, Yes Ability to bilaterally rotate head present and Yes Ability to bilaterally elevate shoulders present Cognition (Neuro): normal cognition Gait exam (Neuro): Wide-based gait present Motor exam (neuro): Abnormal motor strength present and Abnormal muscle tone present Psych Appearance: grossly normal Mental Status: mental status grossly normal Speech and movement: Normal speech and movement present Thought process: Normal thought process present Insight: Good insight present (Psych) Results Reviewed Results Reviewed: MISTY Compliance Report Reviewed February 2025 - Apr 2025 Total average use is >4 hours and 90/90 days 86% and daily use is 7hrs and 20min Pressures Median are [id number], 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 January 2025 ED note reviewed for Hypokalemia. Assessment & Plan Assessment & Plan (1) MISTY (obstructive sleep apnea): Code(s): G47.33 - Obstructive sleep apnea (adult) (pediatric) Category: Medical (2) Daytime sleepiness: Code(s): R40.0 - Somnolence Category: Medical (3) Sleep apnea: Comment: Hypoxia with MISTY and COPD exacerbations he was titrated to 09kvL84 but declined the pressure ronan Code(s): G47.30 - Sleep apnea, unspecified Category: Medical Qualifiers: Sleep apnea type: unspecified type Qualified Code(s): G47.30 - Sleep apnea, unspecified (4) RLS (restless legs syndrome): Code(s): G25.81 - Restless legs syndrome Category: Medical (5) Anemia: Code(s): D64.9 - Anemia, unspecified Category: Medical Qualifiers: Anemia type: other cause Other causes of anemia: other cause, not classified Qualified Code(s): D64.89 - Other specified anemias Plan Continue on CPAP therapy, AHI is not well controlled (11.4/hr) will adjust pressures to [id number] per pt. request though titrated to 84hjH87 on Sep 2024. Will monitor the AHI and send for titration if AHI is not improved, pt was on oxygen in the past. AHI adjustment to 93rwJ95 today on [facility] on line. RLS / monitor legs for swelling pins and needles, paresthesias and timing. If legs are edematous, swollen, start wearing compression stockings and elevate feet for a minimum of 2 hours a day. Decrease salt intake in diet and monitor bp, take all medication on time. Complete Labs and monitor AHI. 1 month f/u Orders: Orders Ferritin Today D64.9 - Anemia, unspecified Homocysteine Today D64.9 - Anemia, unspecified, G47.9 - Sleep disorder, unspecified, R53.83 - Other fatigue Vitamin D 25-OH Total Today D64.9 - Anemia, unspecified Vitamin B6 Today D64.9 - Anemia, unspecified Vitamin B1 Today D64.9 - Anemia, unspecified TSH reflex Free T4 Today D64.9 - Anemia, unspecified Methylmalonic Acid Today D64.9 - Anemia, unspecified, G47.9 - Sleep disorder, unspecified, R53.83 - Other fatigue IRON PROFILE Today D64.9 - Anemia, unspecified, G47.9 - Sleep disorder, unspecified, R53.83 - Other fatigue Vitamin B12 and Folate Today D64.9 - Anemia, unspecified Patient Instructions: HTN is not well controlled today, he is experimenting with taking the Amlodipine at night versus daytime. Monitor feet for swelling wear compression stockings daily, elevate feet for a minimum of 2 hours. Diet decrease salt intake, increase water and nutrient dense foods . Monitor AHI, I adjusted your pressures to 31vjI47 today and will monitor your AHI for elevations, will bring you back in one month to send for titration if AHI does not improve as you were on oxygen therapy in the past and may need this again. Coding Level of Care Code Est Pt Level 4 (54859) Diagnoses MISTY (obstructive sleep apnea) G47.33 Daytime sleepiness R40.0 Sleep apnea, unspecified type G47.30 Sleep apnea type: unspecified type RLS (restless legs syndrome) G25.81 Anemia due to other cause, not classified D64.89 Anemia type: other cause Other causes of anemia: other cause, not classified
--- OUTSIDE RECORDS SUMMARY | 2025-05-21 11:32 | XMS_ITS | Clinical Summary ---
Author Organization [facility] Address [address] [place] [id number] Care Team Providers Care Power Reactor Supervisor Name Role Phone Denis Diehl MD Primary Care Provider [phone] Allergies Active Allergy Reactions Criticality Noted Date [...] age to complete this topic Care Teams Power Reactor Supervisor Relationship Specialty Start Date End Date Denis Diehl MD [address] [place] [address] PCP - General Family Medicine 09/05/22
--- OUTSIDE RECORDS SUMMARY | 2025-05-21 11:32 | XMS_ITS | Clinical Summary ---
Author Organization [facility] ity Address [address] [place] [address] Care Team Providers Care Byproducts Supervisor Name Role Phone Denis Diehl MD Primary Care Provider Surgical History Surgery Date Site/Laterality Comments ANKLE SURGERY PROCEDURE:ANKLE SURGERY Medical History Medical History Date Comments Asthma DX:Asthma COPD (chronic obstructive pu lmonary disease) (CMS/HCC V24, CMS/HCC V28) DX:COPD (chronic o bstructive pulmonary disease) (HCC) Diabetes mellitus (CMS/[facility] V 24, [facility] V28) DX:Diabetes mellitus (HCC) Hypertension [...] 09/23/2023 Social Influencers of Health Screening 09/23/2023 Depression Screening 08/20/2024 COVID-19 Vaccine ( - 2023-2 5 season) 2025 Influenza Vaccine (#1) 2025 HIB Vaccines Aged [...] age to complete this topic Care Teams Byproducts Supervisor Relationship Specialty Start Date End Date Denis Diehl MD [address] [place] [address] Dr Citlali [place] PCP - General 09/05/22
== END 2025-05-21 11:16 | disposition home or self-care (01) ==
LOC: HO.HSMS 10:07
PROVIDERS: PCP Family Medicine; Visit Provider Physician Assistant Medical
DX: G47.33 Obstructive sleep apnea (adult) (pediatric) (principal); R40.0 Somnolence; G47.30 Sleep apnea, unspecified; G25.81 Restless legs syndrome; D64.89 Other specified anemias
CPT/HCPCS: 99214

== ENCOUNTER → 2025-05-21 10:07 | Outpatient (BNVA) | payer MEDICARE, SELFPAY | PROVIDERS: PCP Family Medicine; Visit Provider Physician Assistant Medical | DX: R53.83 Other fatigue (principal); G47.33 Obstructive sleep apnea (adult) (pediatric); Z99.89 Dependence on other enabling machines and devices; R40.0 Somnolence; G47.30 Sleep apnea, unspecified; G25.81 Restless legs syndrome; D64.89 Other specified anemias; Z87.891 Personal history of nicotine dependence | CPT/HCPCS: 99212 ==

== ENCOUNTER 2025-05-25 10:10 | Outpatient (REF) | payer MEDICARE, SELFPAY ==
--- OUTSIDE RECORDS SUMMARY | 2025-05-25 11:49 | XMS_ITS | Clinical Summary ---
Author Organization [facility] ity Address [address] [place] [address] Care Team Providers Care Replenishment Buyer Name Role Phone Denis Diehl MD Primary Care Provider Surgical History Surgery Date Site/Laterality Comments ANKLE SURGERY PROCEDURE:ANKLE SURGERY Medical History Medical History Date Comments Asthma DX:Asthma COPD (chronic obstructive pu lmonary disease) (CMS/HCC V24, CMS/HCC V28) DX:COPD (chronic o bstructive pulmonary disease) (HCC) Diabetes mellitus (CMS/[facility] V 24, [facility] V28) DX:Diabetes mellitus (HCC) Hypertension DX:Hypertension Family [...] age to complete this topic Care Teams Replenishment Buyer Relationship Specialty Start Date End Date Denis Diehl MD [address] [place] [address] Dr Citlali [place] PCP - General 09/05/22
--- OUTSIDE RECORDS SUMMARY | 2025-05-25 11:49 | XMS_ITS | Clinical Summary ---
Author Organization [facility] Address [address] [place] [address] Care Team Providers Care Interlibrary Loan Specialist Name Role Phone Denis Diehl MD Primary Care Provider [phone] Allergies Active Allergy Reactions Criticality Noted Date [...] age to complete this topic Care Teams Interlibrary Loan Specialist Relationship Specialty Start Date End Date Denis Diehl MD [address] [place] [address] PCP - General Family Medicine 09/05/22
[2025-05-25 14:13] LABS: Ferritin 56 ng/mL (20-250); Iron 95 mcg/dL (45-160); Percent Iron Saturation 37 % (15-50); Total Iron Binding Capacity 258 mcg/dL (228-428); Unsaturated Iron Binding 163 ug/dL
[2025-05-25 14:46] LABS: Folate 6.2 ng/mL (> or = 4.0); Vitamin B12 499 pg/mL (200-900)
== END 2025-05-25 10:11 | disposition home or self-care (01) ==
LOC: HO.HKASLDS 10:10
PROVIDERS: PCP Family Medicine; Visit Provider Physician Assistant Medical
DX: R53.83 Other fatigue (principal); D64.9 Anemia, unspecified; G47.9 Sleep disorder, unspecified; Z13.21 Encounter for screening for nutritional disorder; Z13.6 Encounter for screening for cardiovascular disorders
CPT/HCPCS: 36415; 82306; 82607; 82728; 82746; 83090; 83540; 83921; 84207; 84425; 84443

== ENCOUNTER 2025-07-27 10:28 | Outpatient (REF) | payer MEDICARE, SELFPAY ==
[2025-07-27 10:55] LABS: MANUAL DIFF FLAG NO
[2025-07-27 11:15] LABS: Hematocrit 43.5 % (42.0-52.0); Hemoglobin 14.7 g/dl (14.0-18.0); Imm Gran Abs Auto 0.10 X10*3/uL (0.00-0.03); Imm Gran Pct Auto 0.9 % (0.0-0.4); Lymphocytes Absolute Auto 1.6 X10*3/uL (1.2-4.9); Mean Corpuscular HGB Conc 33.8 g/dl (31.0-36.0); Mean Corpuscular Hemoglobin 29.4 pg (27.0-33.0); Mean Corpuscular Volume 87.0 fL (80.0-98.0); NRBC Abs Auto 0.000 X10*3/uL (0.0-0.012); NRBC Pct Auto 0.0 /100WBC (0.0-0.2); Platelet Count 300 X10*3/uL (160-400); Red Blood Count 5.00 X10*6/uL (4.60-5.80); White Blood Count 10.6 X10*3/uL (4.8-10.8)
[2025-07-27 11:40] LABS: Appearance Urine Clear; Glucose Urine UA Negative (Negative); PH 7.5 (5.0-9.0); Specific Gravity - Urine 1.025 (1.005-1.025); UMIC TRIGGER UACC YES
[2025-07-27 12:21] LABS: Alanine Aminotransferase 33 U/L (0-40); Albumin Level 4.6 g/dL (3.5-5.0); Alkaline Phosphatase 43 U/L (39-117); Anion Gap 15 (12-20); Aspartate Amino Transferase 41 U/L (5-37); Blood Urea Nitrogen 17 mg/dL (9-16); Calcium 9.6 mg/dL (8.4-10.2); Carbon Dioxide 32 mmol/L (22-29); Chloride 95 mmol/L (96-108); Cholesterol 140 mg/dL (<200); Estimated Glomerular Filt Rate > 60; HDL Cholesterol 42 mg/dL (>40); Potassium 3.4 mmol/L (3.3-5.1); Sodium 139 mmol/L (135-145); Total Protein 7.0 g/dL (6.5-8.0); Triglycerides 283 mg/dL (<150)
[2025-07-27 12:44] LABS: Microalbum/Creatinine Ratio Ur 42.0 ug/mg cr (<30)
--- OUTSIDE RECORDS SUMMARY | 2025-07-27 17:31 | XMS_ITS | Clinical Summary ---
Author Organization [facility] Prior to 01/17/[address] [place] [address] Care Team Providers Care Laundry Presser Name Role Phone Denis Diehl MD Primary Care Provider [phone] Allergies Active Allergy Reactions Criticality Noted Date [...] age to complete this topic Care Teams Laundry Presser Relationship Specialty Start Date End Date Denis Diehl MD [address] [place] [address] PCP - General Family Medicine 09/05/22
== END 2025-07-27 10:29 | disposition home or self-care (01) ==
LOC: HO.LAB 10:28
PROVIDERS: PCP Family Medicine; Visit Provider Family Medicine
DX: Z00.00 Encounter for general adult medical examination without abnormal findings (principal); Z12.5 Encounter for screening for malignant neoplasm of prostate; I25.10 Atherosclerotic heart disease of native coronary artery without angina pectoris; I10 Essential (primary) hypertension
CPT/HCPCS: 36415; 80053; 80061; 81001; 82043; 82570; 84153; 84443; 85025

== ENCOUNTER 2025-08-06 11:38 | Outpatient (AMB) | payer MEDICARE, SELFPAY ==
--- NOTE | 2025-08-06 11:51 | MHC.PC.OV ---
Vital Signs 08/06/25 12:05 Height 5 ft 8 in Weight 206 lb 2 oz BMI 31.3 BP 175/76 H Blood Pressure Location Lt brachial Position Sitting Respiration 16 Pulse 86 Pulse Source Pulse Oximeter Temp 97.4 F Temp Source Oral Pulse Oximetry (%) 95 Oxygen Delivery Method Room Air Intake Visit Reasons: Extended Exam Intake Note: patient here for Extended Exam with f/u labs and health maint. 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 Required: No Allergies SADI Inhibitors (SADI INHIBITORS) Allergy (Unknown, Verified 08/06/25 12:03) FACIAL SWELLING lisinopril (LISINOPRIL) Allergy (Unknown, Verified 08/06/25 12:03) FACIAL SWELLING, hives, lip edema oxycodone (From PERCOCET) Allergy (Unknown, Verified 08/06/25 12:03) JOINT STIFFNESS peanut (PEANUTS) Allergy (Unknown, Verified 08/06/25 12:03) SWELLING,THROAT,HIVES Medication List - Last Reconciled 08/06/25 by Denis Diehl MD albuterol sulfate 90 mcg/actuation 2 puffs inhalation Q4H PRN amlodipine 10 mg PO DAILY 90 days aspirin 81 mg PO DAILY blood sugar diagnostic USE DIRECTED DAILY blood sugar diagnostic (Ti-Bi TechnologyTouch Ultra Test strips) check blood sugar one time daily prn as directed brinzolamide-brimonidine 1-0.2 % (Simbrinza) 1 drp ophthalmic (eye) BID raccxmkwtp-gimpovsc-nwolfxgzdp 160-9-4.8 mcg/actuation (Breztri Aerosphere) 2 inhalations inhalation BID chlorthalidone 50 mg PO DAILY 90 days epinephrine (EpiPen) 0.3 mg (0.3 mL) IM Q10M PRN 30 days finasteride 5 mg PO DAILY gabapentin 600 mg (2 x 300 mg) PO BEDTIME 30 days MDD 600mg glipizide ER 2.5 mg PO DAILY 90 days hydralazine 50 mg PO QID 90 days latanoprost 0.005% 1 drp ophthalmic (eye) BEDTIME metformin 1,000 mg PO BID 90 days rosuvastatin 10 mg PO BEDTIME 90 days tamsulosin 0.4 mg PO BID Tobacco use date assessed: 08/06/25 Fall risk assessment: No Falls in past year Last assessed Fall Risk: 08/06/25 Dental Screening Dental Screen Date: 08/06/25 Did you have a dental visit in the last 12 months?: Yes Did you have a dental problem in the last 6 months where you did not have access to dental care?: No Was dental information given to patient?: Patient has dentist HPI Extended Exam HPI Details 79 y/o female presents for an extended exam with f/u labs and health maint. Labs drawn 07/27/25. Reviewed labs with pt. Elevated AST of 41. ALT 33. Triglycerides 283. TC 140. LDL 42. HDL 42. PSA 5.49 ng/mL. BP today 175/76, 86p. He is on hydralazine 50mg qid, chlorthalidone 50mg, amlodipine 10mg daily. Patient with ongoing hypoxia and COPD since pneumonia. Still has difficulties walking more than about 50 ft without needing to stop due to shortness of breath. PFSH Medical History Hypokalemia COVID Benign prostatic hyperplasia with urinary obstruction MISTY on CPAP Bifascicular block Atherosclerotic cardiovascular disease COPD (chronic obstructive pulmonary disease) Carotid stenosis Hypertension Diabetes Hypercholesteremia Surgical History H/O colonoscopy Hx of elbow surgery History of eyelid surgery S/P TURP (status post transurethral resection of prostate) (~2019) Status post carotid surgery Hx of cataract Family History Father CVD (cardiovascular disease) Mother No problems noted. Sister Cancer Sister Cancer Social History (Updated 08/06/25 @ 12:05 by FRANCHESCA Kay) Household Members: None Housing: House Do you presently have visiting nurse or other home services: Yes Alcohol intake: current Alcohol intake frequency: a few times a week Comment: pt. is ambulatory, steady on foot. Patient Tobacco Use Status: Former Tobacco user e-Cigarette/Vaping Use: Never Used Second Hand Smoke Exposure: No Use of substances other than those prescribed or required for medical reasons: No Substance Use Type: Prescription Drugs Advance Directives Date on File: 04/27/24 service: No Current occupational status: retired Current occupational exposures/hazards: No Cognitive needs: No Hearing needs: No Vision needs: No Questionnaire PHQ-9 Over the last 2 weeks, how often have you been bothered by any of the following problems? 1. Little interest or pleasure in doing things: not at all 2. Feeling down, depressed, or hopeless: not at all 3. Trouble falling or staying asleep, or sleeping too much: not at all 4. Feeling tired or having little energy: not at all 5. Poor appetite or overeating: several days 6. Feeling bad about yourself - or that you are a failure or have let yourself or your family down: not at all 7. Trouble concentrating on things, such as reading the newspaper or watching television: not at all 8. Moving or speaking so slowly that other people could have noticed. Or the opposite - being so fidgety or restless that you have been moving around a lot more than usual: not at all 9. Thoughts that you would be better off or of hurting yourself in some way: not at all Total score: 1 Depression Screening Interpretation: Negative Depression Screening Done: Yes 45751 - PHQ-9 Billing: Yes Source: Developed by Drs. aGry Damian, Elo Najera, Martin Ambrocio and colleagues, with an educational daina from [employer]. Thrive Questionnaire Date Thrive assessed: 08/06/25 I am a: Patient What is your living situation today?: I have a steady place to live Within the past 12 months, did the food you bought not last and you didn't have the money to get more?: Never true Within the past 12 months, did you worry whether your food would run out before you got money to buy more?: Never true Do you have trouble paying for medicines?: No Do you have trouble getting transportation to medical appointments?: No Do you have trouble paying your heating and electricity bill?: No Do you have trouble taking care of your child, family member or friend?: No Do you have trouble with day-to-day activities such as bathing, preparing meals, shopping, managing finances, etc.?: No Are you currently unemployed and looking for a job?: No Are you interested in more education?: No Please select the resources that you would like help with: None Currently or been in a relationship where the following occur: No concerns reported THRIVE Score: 0 AUDIT C Alcohol Use Questionnaire (AUDIT-C) 1. How often do you have a drink containing alcohol?: Monthly or less 2. How many drinks containing alcohol do you have on a typical day when you are drinking?: 1 or 2 3. How often do you have six or more drinks on one occasion?: Never Total Score: 1 Score Reviewed/Action Taken: Yes RUDY-7 AMB Questionnaire RUDY-7 Date RUDY - 7 assessed: 08/06/25 Feeling nervous, anxious, or on edge: 0 = Not at all Not being able to stop or control worryin = Not at all Worrying too much about different things: 0 = Not at all Trouble relaxin = Not at all Being so restless that it is hard to sit still: 0 = Not at all Becoming easily annoyed or irritable: 0 = Not at all Feeling afraid as if something awful might happen: 0 = Not at all Total RUDY-7 score (0-4 normal; 5-9 mild; 10-14 moderate; 15-21 severe): 0 Source: Developed by Drs. Gary Damian, Elo Najera, Martin Ambrocio and colleagues, with an educational daina from [employer]. RUDY-7 Assessment Billing RUDY-7 Assessment Tool: RUDY-7 Assessment 30194 Review of Systems Const Denies chills, Denies fatigue, Denies fever(s), Denies headache(s) and Denies weakness Eyes Denies change in vision ENT Denies dizziness, Denies headache(s), Denies hearing loss, Denies nasal congestion, Denies sinus pain, Denies sinus pressure and Denies sore throat Card Denies chest pain, Denies lightheadedness, Denies dyspnea and Denies other (palpitations) Resp Denies cough, Denies dyspnea and Denies wheezing GI Denies abdominal pain, Denies melena, Denies hematochezia, Denies change in bowel habits, Denies dyspepsia and Denies nausea Denies hematuria and Denies dysuria Musc Denies abnormal gait, Denies myalgias, Denies arthralgias, Denies numbness and Denies tingling Skin/Breast Denies rash, Denies unusual bruising and Denies wounds Neuro Denies abnormal gait, Denies dizziness, Denies headache(s), Denies memory loss, Denies numbness, Denies Sensory deficit (Neuro), Denies tingling and Denies weakness Psych Denies anxiety, Denies depression and Denies memory loss Endo Denies cold intolerance, Denies fatigue, Denies heat intolerance, Denies polydipsia and Denies polyuria Barry/Lymph Denies easy bleeding and Denies easy bruising Aller/Immun Denies wheezing Physical exam (Primary Care) Vital Signs: Last Vital Signs Temp 97.4 F 08/06/25 12:05 Pulse 86 08/06/25 12:05 Resp 16 08/06/25 12:05 BP 175/76 H 08/06/25 12:05 Pulse Ox 95 08/06/25 12:05 Oxygen Delivery Method Room Air 08/06/25 12:05 BMI result Body Mass Index 31.3 Tobacco/Smoking Status: Tobacco use Status Tobacco use date assessed 08/06/25 08/06/25 12:10 Patient Tobacco Use Status Former Tobacco user 08/06/25 12:05 e-Cigarette/Vaping Use Never Used 08/06/25 12:05 PHQ-9: PHQ-9 Score PHQ-9: Total score 1 08/06/25 12:37 Depression Screening Interpretation: Negative Thrive Assessment: Date of Thrive Assessment Date Thrive assessed 08/06/25 08/06/25 12:10 Currently or been in a relationship where the following occur: No concerns reported Const General: no acute distress, well developed, alert and awake Nutritional Appearance: well nourished Orientation/consciousness: patient oriented x3 HENMT Head: Yes normocephalic and Yes atraumatic Ears: hearing grossly normal bilaterally and TM's normal bilaterally General nose exam: Normal external nose present and Normal nares present Mouth: Normal oral and palatal mucosa present and moist mucous membranes Teeth and gingiva: dentition normal Throat: Yes posterior oropharynx normal Eyes General: appearance normal, both eyes and all related structures Pupils: Equal, round and reactive pupils present and Pupil accommodation reflex normal EOM: EOMs intact bilaterally Neck Neck: Yes normal visual inspection, Yes no lymphadenopathy and Yes trachea midline Thyroid: Thyroid normal Carotids: no bruits Lymphatic: no lymphadenopathy noted Chest Chest palpation & inspection: normal inspection of the chest Resp Effort & Inspection: normal respiratory effort Auscultation: clear to auscultation bilaterally Cardio Rate: regular rate Rhythm: regular rhythm Heart sounds: S1 normal heart sound present, S2 normal heart sound present, no gallops, no murmurs and no rubs Bruits: no abdominal aortic bruits and no carotid bruits GI Palpation (GI): No Abdominal aortic bruit present, Soft to palpation, nontender, No hepatosplenomegaly present and No Rebound tenderness present Auscultation: normal bowel sounds General: Yes no CVA tenderness Back/Spine/Pelvis Back: no CVA tenderness Cervical Spine: cervical ROM normal and No Cervical spine tenderness Thoracic/Lumbar Spine: thoraco-lumbar ROM normal, No pain with thoraco-lumbar ROM, No thoracic spinal tenderness and No lumbar spinal tenderness Skin Lesions: no lesions Rashes: no rashes Trauma: no lacerations or abrasions Wounds: no wounds Nails: normal Neuro General: patient oriented x3 Cranial nerves: Yes Equal, round and reactive pupils present Cognition (Neuro): normal cognition Gait exam (Neuro): Normal gait present Motor exam (neuro): 5/5 motor strength present throughout Sensory Exam: No Sensory deficit (Neuro) Deep tendon reflexes (DTR's): Right patellar reflex intensity grade: 2+ and Left patellar reflex intensity grade: 2+ Extrem General: Yes normal to inspection and No edema Psych Appearance: grossly normal Affect: normal affect Attitude: cooperative Thought process: Normal thought process present Coding Level of Care Code Est Pt Level 4 (33834) Diagnoses Essential hypertension I10 Coronary artery disease I25.10 Hyperlipidemia E78.5 Screening for prostate cancer Z12.5 Screening for colon cancer Z12.11 Chronic obstructive pulmonary disease with acute lower respiratory infection J44.0 COPD type: COPD with acute lower respiratory infection Hypoxia R09.02 Adult general medical exam Z00.00 Additional Codes RUDY-7 Assessment Billing - RUDY-7 Assessment Tool: RUDY-7 Assessment 09564 ([id number]) PHQ-9 - 88891 - PHQ-9 Billing: Yes ([id number]) Assessment & Plan Assessment & Plan (1) Essential hypertension: Code(s): I10 - Essential (primary) hypertension Category: Medical Plan: Blood pressure is too high. Goal is less than 130/80 Continue current medications and will trial metoprolol 12.5 mg b.i.d. He will let me know if he has any adverse effects Follow-up in 4-6 weeks (2) Coronary artery disease: Code(s): I25.10 - Atherosclerotic heart disease of [place] coronary artery without angina pectoris Category: Medical Plan: Stable Continue blood pressure and lipid control. Continue blood sugar control (3) Hyperlipidemia: Code(s): E78.5 - Hyperlipidemia, unspecified Category: Medical Plan: Lipids are fairly well controlled on rosuvastatin. Triglycerides mildly elevated Will continue to monitor Continue rosuvastatin as prescribed (4) Screening for prostate cancer: Code(s): Z12.5 - Encounter for screening for malignant neoplasm of prostate Category: Medical Plan: PSA remains elevated though lower than prior measurement He will follow-up with [facility] as recommended (5) Screening for colon cancer: Code(s): Z12.11 - Encounter for screening for malignant neoplasm of colon Category: Medical (6) COPD (chronic obstructive pulmonary disease): Code(s): J44.9 - Chronic obstructive pulmonary disease, unspecified Category: Medical Qualifiers: COPD type: COPD with acute lower respiratory infection Qualified Code(s): J44.0 - Chronic obstructive pulmonary disease with (acute) lower respiratory infection (7) Hypoxia: Code(s): R09.02 - Hypoxemia Category: Medical (8) Adult general medical exam: Code(s): Z00.00 - Encounter for general adult medical examination without abnormal findings Category: Medical Plan: 79-year-old male presents for extended exam Plan Patient with ongoing hypoxia and COPD since pneumonia. Still has difficulties walking more than about 50 ft without needing to stop due to shortness of breath. Had filled out disability forms for patient who is clearly disabled. He says his insurance has been giving him difficulty saying that he had previously had a toe infection and so was not working and therefore not eligible for disability. However toe infection was not a limiting factor in any disability but was just a temporary illness without any significant leave of absence eg for a cold or sprained ankle etc. Patient notes that he was already back to work before he got sick with pneumonia, leading to respiratory failure and chronic hypoxia. 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 and that his work is no more strenuous than this. 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 Ms. Will obligate him to behave in ways contrary to his own best health and he does not only have pulmonary concerns. Mr. Adkins has coronary artery disease. Thus hypoxia and exacerbations of this may increased demands on his heart which may result in arrhythmias and potentially . Patient had forms today from his insurance with their above reservations. I replied with essentially the above statement. 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 In my opinion, this is unacceptable for him in his current condition. Office can arrange appointment with his insurance physician and I will speak to them.
[2025-08-06 12:05] VITALS: BP 175/76; PULSE 86; RESP 16; TEMP 36.3; O2SAT 95; BMI 31.3
--- OUTSIDE RECORDS SUMMARY | 2025-08-06 15:22 | XMS_ITS | Clinical Summary ---
Author Organization [facility] ity Address [address] [place] [address] Care Team Providers Care Journeyman Tool And Die Maker Name Role Phone Denis Diehl MD Primary Care Provider Surgical History Surgery Date Site/Laterality Comments ANKLE SURGERY PROCEDURE:ANKLE SURGERY Medical History Medical History Date Comments Asthma DX:Asthma COPD (chronic obstructive pu lmonary disease) (CMS/HCC V24, CMS/FORMERLY [facility] V28) DX:COPD (chronic o bstructive pulmonary disease) (HCC) Diabetes mellitus (CMS/[facility] V 24, [facility] V28) DX:Diabetes mellitus (HCC) Hypertension DX:Hypertension Family [...] on file Sexual Orientation Not on file Last Filed Vital Signs [...] Depression Screening 08/20/2024 COVID-19 Vaccine ( - 2024-2 6 season) 2025 Influenza Vaccine (#1) 2025 HIB [...] age to complete this topic Care Teams Journeyman Tool And Die Maker Relationship Specialty Start Date End Date Denis Diehl MD [address] [place] [address] Dr Citlali MA PCP - General 09/05/22
--- OUTSIDE RECORDS SUMMARY | 2025-08-06 15:23 | XMS_ITS | Clinical Summary ---
Author Organization [facility] Prior to 01/17/[address] [place] [id number] Care Team Providers Care Chainstitch Felled Seam Operator Name Role Phone Denis Diehl MD Primary Care Provider [phone] Allergies Active Allergy Reactions Criticality Noted Date [...] age to complete this topic Care Teams Chainstitch Felled Seam Operator Relationship Specialty Start Date End Date Denis Diehl MD [address] [place] [address] PCP - General Family Medicine 09/05/22
== END 2025-08-06 13:07 | disposition home or self-care (01) ==
PROVIDERS: PCP Family Medicine; Visit Provider Family Medicine
DX: I10 Essential (primary) hypertension (principal); I25.10 Atherosclerotic heart disease of native coronary artery without angina pectoris; J44.0 Chronic obstructive pulmonary disease with (acute) lower respiratory infection; E78.5 Hyperlipidemia, unspecified; Z12.5 Encounter for screening for malignant neoplasm of prostate; Z12.11 Encounter for screening for malignant neoplasm of colon; R09.02 Hypoxemia

== ENCOUNTER → 2025-08-06 11:38 | Outpatient (BNVA) | payer MEDICARE, SELFPAY | PROVIDERS: PCP Family Medicine; Visit Provider Family Medicine | DX: I10 Essential (primary) hypertension (principal); I25.10 Atherosclerotic heart disease of native coronary artery without angina pectoris; E78.5 Hyperlipidemia, unspecified; J44.0 Chronic obstructive pulmonary disease with (acute) lower respiratory infection; R09.02 Hypoxemia; Z13.31 Encounter for screening for depression; Z13.39 Encounter for screening examination for other mental health and behavioral disorders | CPT/HCPCS: 96127; 99212 ==

== ENCOUNTER 2025-08-17 12:28 | Outpatient (AMB) | payer MEDICARE, SELFPAY ==
[2025-08-17 12:59] VITALS: BP 140/78; PULSE 85; BMI 30.8
--- NOTE | 2025-08-17 12:59 | A.OFFVIS_ITS ---
Vital Signs 08/17/25 12:59 Height 5 ft 8 in Weight 202 lb 13.204 oz BMI 30.8 BP 140/78 H Blood Pressure Location Lt brachial Position Sitting Pulse 85 Pulse Source Pulse Oximeter Intake Visit Reasons: 6m follow up Allergies SADI Inhibitors (SADI INHIBITORS) Allergy (Unknown, Verified 08/06/25 12:03) FACIAL SWELLING lisinopril (LISINOPRIL) Allergy (Unknown, Verified 08/06/25 12:03) FACIAL SWELLING, hives, lip edema oxycodone (From PERCOCET) Allergy (Unknown, Verified 08/06/25 12:03) JOINT STIFFNESS peanut (PEANUTS) Allergy (Unknown, Verified 08/06/25 12:03) SWELLING,THROAT,HIVES Medication List - Last Reconciled 08/17/25 by Hernandez Jennings MD albuterol sulfate 90 mcg/actuation 2 puffs inhalation Q4H PRN amlodipine 10 mg PO DAILY 90 days aspirin 81 mg PO DAILY blood sugar diagnostic USE DIRECTED DAILY blood sugar diagnostic ([employer] Ultra Test strips) check blood sugar one time daily prn as directed brinzolamide-brimonidine 1-0.2 % (Simbrinza) 1 drp ophthalmic (eye) BID rzmtxfmntr-vhattdbq-cbryayzmkb 160-9-4.8 mcg/actuation (Breztri Aerosphere) 2 inhalations inhalation BID chlorthalidone 50 mg PO DAILY 90 days epinephrine (EpiPen) 0.3 mg (0.3 mL) IM Q10M PRN 30 days finasteride 5 mg PO DAILY gabapentin 600 mg (2 x 300 mg) PO BEDTIME 30 days MDD 600mg glipizide ER 2.5 mg PO DAILY 90 days hydralazine 50 mg PO QID 90 days latanoprost 0.005% 1 drp ophthalmic (eye) BEDTIME metformin 1,000 mg PO BID 90 days metoprolol tartrate 12.5 mg (1/2 x 25 mg) PO BID 90 days rosuvastatin 10 mg PO BEDTIME 90 days tamsulosin 0.4 mg PO BID HPI Comments Details: Taqueria returns for follow-up regarding coronary disease. He has multiple cardiovascular risk factors including history of smoking, hypertension, diabetes, dyslipidemia and established coronary as well as peripheral vascular disease. Overall, he is feeling good. No cardiac symptoms. [facility] Medical History Hypokalemia COVID Benign prostatic hyperplasia with urinary obstruction MISTY on CPAP Bifascicular block Atherosclerotic cardiovascular disease COPD (chronic obstructive pulmonary disease) Carotid stenosis Hypertension Diabetes Hypercholesteremia Surgical History H/O colonoscopy Hx of elbow surgery History of eyelid surgery S/P TURP (status post transurethral resection of prostate) (~2019) Status post carotid surgery Hx of cataract Family History Father CVD (cardiovascular disease) Mother No problems noted. Sister Cancer Sister Cancer Social History (Updated 08/06/25 @ 12:05 by FRANCHESCA Kay) Household Members: None Housing: House Do you presently have visiting nurse or other home services: Yes Alcohol intake: current Alcohol intake frequency: a few times a week Comment: pt. is ambulatory, steady on foot. Patient Tobacco Use Status: Former Tobacco user e-Cigarette/Vaping Use: Never Used Second Hand Smoke Exposure: No Substance Use Type: Prescription Drugs Advance Directives Date on File: 04/27/24 service: No Current occupational status: retired Current occupational exposures/hazards: No Cognitive needs: No Hearing needs: No Vision needs: No Review of Systems Const Denies weakness ENT Denies dizziness Card Denies chest pain, Denies chest pain with activity, Denies syncope, Denies rapid heart rate, Denies pedal edema, Denies edema, Denies leg edema, Denies lightheadedness, Denies palpitations, Denies dyspnea, Denies dyspnea on exertion and Denies orthopnea Resp Denies cough, Denies dyspnea and Denies dyspnea on exertion GI Denies hematochezia and Denies change in stool character Musc Denies abnormal gait, Denies muscle cramps, Denies muscle weakness, Denies numbness, Denies radiating pain into limb and Denies tingling Neuro Denies abnormal gait, Denies dizziness, Denies syncope, Denies numbness, Denies tingling and Denies weakness Endo Denies palpitations Physical Exam Vital Signs: Last Vital Signs Pulse 85 08/17/25 12:59 BP 140/78 H 08/17/25 12:59 BMI result Body Mass Index 30.8 Const General: comfortable and no acute distress Orientation/consciousness: patient oriented x3 HEENT Other: Unremarkable Head: Yes normal to inspection Neck Neck: Yes normal visual inspection Chest Chest palpation & inspection: normal inspection of the chest Resp Auscultation: clear to auscultation bilaterally Cardio Palpation: normal PMI Heart sounds: S1 normal heart sound present, S2 normal heart sound present, no gallops, no murmurs and no rubs GI Palpation (GI): Soft to palpation Back/Spine/Pelvis Other: unremarkable Skin General skin exam: no rashes or lesions noted Neuro General: patient oriented x3 Extrem General: Yes normal to inspection Psych Mental Status: mental status grossly normal Assessment & Plan Assessment & Plan (1) Atherosclerotic cardiovascular disease: Code(s): I25.10 - Atherosclerotic heart disease of [place] coronary artery without angina pectoris Category: Medical Plan: Cardiac catheterization in the past had revealed minimal irregularities in the left main, LAD, circumflex and moderate nonobstructive disease in the right coronary artery. Most recently, perfusion imaging from 01/2024 unremarkable. Continue aspirin and statins. Last LDL 42mg/dL. Previously not on beta-blockers but more recently has been started on a small dose through his own PCP. Hx of epinephrine use for allergies (used once in the past). (2) Bifascicular block: Code(s): I45.2 - Bifascicular block Category: Medical Plan: Stable. (3) Atrial arrhythmia: Code(s): I49.8 - Other specified cardiac arrhythmias Category: Medical Plan: In the last Holter, he had frequent supraventricular ectopy with a burden of almost 10%. Increased risk of atrial fibrillation the future. (4) Essential hypertension: Code(s): I10 - Essential (primary) hypertension Category: Medical Plan: Borderline high today. Has been put on a small dose of beta-caitlyn through his own PCP. Of note, history of allergy to SADI inhibitors in the past due to swelling of lips. (5) Type 2 diabetes mellitus with unspecified complications: Code(s): E11.8 - Type 2 diabetes mellitus with unspecified complications Category: Medical Plan: On Metformin, glipizide. Last HbA1c 6.9%. (6) Carotid stenosis, bilateral: Comment: 12/02/2015- left carotid endarterectomy Code(s): I65.23 - Occlusion and stenosis of bilateral carotid arteries Category: Medical Plan: Status post left carotid endarterectomy. Last carotid Doppler shows no significant disease. (7) MISTY on CPAP: Code(s): G47.33 - Obstructive sleep apnea (adult) (pediatric); Z99.89 - Dependence on other enabling machines and devices Category: Medical Plan: Continue CPAP. Coding Level of Care Code Est Pt Level 4 (19499) Add On Problem Visit Only Diagnoses Atherosclerotic cardiovascular disease I25.10 Bifascicular block I45.2 Atrial arrhythmia I49.8 Essential hypertension I10 Type 2 diabetes mellitus with unspecified complications E11.8 Carotid stenosis, bilateral I65.23 MISTY on CPAP G47.33; Z99.89
--- OUTSIDE RECORDS SUMMARY | 2025-08-17 14:27 | XMS_ITS | Clinical Summary ---
Author Organization [facility] Prior to 01/17/[address] [place] [address] Care Team Providers Care Window Repairer Name Role Phone Denis Diehl MD Primary Care Provider [phone] Allergies Active Allergy Reactions Criticality Noted Date [...] age to complete this topic Care Teams Window Repairer Relationship Specialty Start Date End Date Denis Diehl MD [address] [place] [address] PCP - General Family Medicine 09/05/22
--- OUTSIDE RECORDS SUMMARY | 2025-08-17 14:27 | XMS_ITS | Clinical Summary ---
Author Organization [facility] Address [address] [place] [address] Care Team Providers Care [employer] Name Role Phone Denis Diehl MD Primary Care Provider Surgical History Surgery Date Site/Laterality Comments ANKLE SURGERY PROCEDURE:ANKLE SURGERY Medical History Medical History Date Comments Asthma DX:Asthma COPD (chronic obstructive pu lmonary disease) (CMS/HCC V24, CMS/[facility] V28) DX:COPD (chronic o bstructive pulmonary disease) (HCC) Diabetes mellitus (CMS/[facility] V 24, [facility] V28) DX:Diabetes mellitus (HCC) Hypertension [...] age to complete this topic Care Teams [employer] Relationship Specialty Start Date End Date Denis Diehl MD [address] [place] [address] Dr Citlali MA PCP - General 09/05/22
== END 2025-08-17 13:19 | disposition home or self-care (01) ==
LOC: HO.HCS 12:29
PROVIDERS: PCP Family Medicine; Visit Provider Internal Medicine
DX: I25.10 Atherosclerotic heart disease of native coronary artery without angina pectoris (principal); I45.2 Bifascicular block; I49.8 Other specified cardiac arrhythmias; I10 Essential (primary) hypertension; E11.8 Type 2 diabetes mellitus with unspecified complications; I65.23 Occlusion and stenosis of bilateral carotid arteries; G47.33 Obstructive sleep apnea (adult) (pediatric); Z99.89 Dependence on other enabling machines and devices
CPT/HCPCS: 99214; G2211

== ENCOUNTER → 2025-08-17 12:28 | Outpatient (BNVA) | payer MEDICARE, SELFPAY | PROVIDERS: PCP Family Medicine; Visit Provider Internal Medicine | DX: I25.10 Atherosclerotic heart disease of native coronary artery without angina pectoris (principal); I10 Essential (primary) hypertension; I45.2 Bifascicular block; I49.8 Other specified cardiac arrhythmias; I65.23 Occlusion and stenosis of bilateral carotid arteries; E11.8 Type 2 diabetes mellitus with unspecified complications; G47.33 Obstructive sleep apnea (adult) (pediatric); Z99.89 Dependence on other enabling machines and devices | CPT/HCPCS: 99212 ==